=== PATIENT | female | born 1945 | race Caucasian/White ===

== ENCOUNTER → 2017-05-21 | Outpatient (CLI) | payer MEDICARE, BC ==
--- NOTE | 2017-05-21 12:33 | XR ---
EXAMINATION TYPE: XR Hip Bilateral Complete DATE OF EXAM: 05/21/2017 COMPARISON: NONE HISTORY: Hip pain TECHNIQUE: 2 views submitted FINDINGS: There is no evidence of erosive change or acute fracture. Postsurgical changes are noted. Vascular calcifications are seen. Moderate concentric narrowing the j oint space. Hypertrophic change of the greater trochanter noted. IMPRESSION: 1. Arthropathy correlate for femoral acetabular impingement.
== END ==
LOC: RADXRMAIN 12:11
PROVIDERS: ATTEND Family Medicine
DX: M16.0 Bilateral primary osteoarthritis of hip (principal)
CPT/HCPCS: 73521

== ENCOUNTER → 2017-05-28 | Outpatient (CLI) | payer MEDICARE, BC ==
--- NOTE | 2017-05-28 12:45 | US ---
EXAMINATION TYPE: US venous doppler duplex LE DATE OF EXAM: 05/28/2017 12:40 PM COMPARISON: NONE CLINICAL HISTORY: I82.40 DVT. Pt states right leg pain and swelling, bilateral legs ordered SIDE PERFORMED: Bilateral TECHNIQUE: The lower extremity deep venous system is examined utilizing real time linear array sonog abad with graded compression, doppler sonography and color-flow sonography. VESSELS IMAGED: External Iliac Vein (EIV) Common Femoral Vein Deep Femoral Vein Greater Saphenous Vein * Femoral Vein Popliteal Vein Small Saphenous Vein * Proximal Calf Veins (* superficial vessels) Right Leg: Negative for DVT Left Leg: Negative for DVT Grayscale, color doppler, spectral doppler imaging performed of the deep veins of the lower extremiti es. There is normal flow, compressibility, vascular waveforms. IMPRESSION: No sonographic evidence of deep venous thrombosis within either lower extremity.
== END | disposition home or self-care (01) ==
LOC: RADUSWWP 12:06
PROVIDERS: ATTEND Family Medicine
DX: I82.409 Acute embolism and thrombosis of unspecified deep veins of unspecified lower extremity (principal)
CPT/HCPCS: 93970

== ENCOUNTER → 2017-06-05 | Outpatient (CLI) | payer MEDICARE, BC ==
--- NOTE | 2017-06-05 12:19 | XR ---
EXAMINATION TYPE: XR chest 2V DATE OF EXAM: 06/05/2017 COMPARISON: Chest CT 10/30/2013 HISTORY: MRI clearance TECHNIQUE: Frontal and lateral views of the chest are obtained. FINDINGS: There is no focal air space opacity, pleural effusion, or pneumothorax seen. The cardiac silhouette size is within normal limits. Patient is post median sternotomy. Epicardial leads are not evident. Prominent lung volume may be indicative of COPD. Surgical clips present in the upper abdomen . The osseous structures are intact. IMPRESSION: No acute cardiopulmonary process.
== END | disposition home or self-care (01) ==
LOC: RADXRMAIN 11:54
PROVIDERS: ATTEND Physical Medicine & Rehabilitation
DX: Z01.818 Encounter for other preprocedural examination (principal)
CPT/HCPCS: 71020

== ENCOUNTER → 2018-06-05 | Outpatient (CLI) | payer MEDICARE, BC ==
--- NOTE | 2018-06-05 15:57 | MR ---
EXAMINATION TYPE: MR knee LT wo con DATE OF EXAM: 06/05/2018 COMPARISON: NONE HISTORY: Left knee pain, internal derangement. TECHNIQUE: Multiplanar, multisequence images of the knee is performed without IV contrast. FINDINGS: MEDIAL MENISCUS: Anterior horn is intact without tear. There is oblique increased signal posterior ho rn appears to extend to inferior articular surface sagittal image 24. LATERAL MENISCUS: Anterior and posterior horns are intact without tear. CRUCIATE LIGAMENTS: The anterior and posterior cruciate ligaments are intact and unremarkable. COLLATERAL LIGAMENTS: The medial collateral ligament and lateral collateral ligament complex are inta ct and unremarkable. EXTENSOR MECHANISM: Visualized quadriceps and patellar tendons are intact. EFFUSION: No significant suprapatellar joint effusion. POPLITEAL CYST: No popliteal/ramos cyst. TRICOMPARTMENT SPACES: Mild to moderate tricompartment joint space loss is seen. No significant spurr ing is present. CARTILAGE: There is moderate diffuse cartilaginous loss medial tibiofemoral compartment. BONE MARROW SIGNAL: No focal abnormal marrow signal is appreciated. OTHER: No additional significant abnormality is appreciated. IMPRESSION: 1. Cannot exclude or suspect focal oblique full-thickness tear posterior horn of medial meniscus. 2. Background mild to moderate tricompartment degenerative changes most prominent medial tibiofemoral compartment presumed product of osteoarthritis.
== END | disposition home or self-care (01) ==
LOC: RADMRIMAIN 14:38
PROVIDERS: ATTEND Family Medicine
DX: M17.12 Unilateral primary osteoarthritis, left knee (principal)

== ENCOUNTER 2018-07-30 08:15 | Day surgery (SDC) | payer MEDICARE, BC ==
[2018-07-24 09:29] VITALS: BMI 28.8
--- NOTE | 2018-07-29 17:04 | HP ---
HISTORY AND PHYSICAL DATE OF SURGERY: 07/30/2018 Alyssa Roca is a 73-year-old patient seen with progressive left knee pain. Treatment options were discussed. She elected to proceed with arthroscopy. Consent was obtained. Medical and cardiac clearances were obtained. PAST MEDICAL HISTORY: 1. Hypertension. 2. Depression. 3. Cardiovascular disease. PAST SURGICAL HISTORY: 1. Carpal tunnel release. 2. Cholecystectomy. 3. Hysterectomy. 4. Coronary artery bypass surgery. DAILY MEDICATIONS: 1. Aspirin. 2. Isosorbide. 3. Lopressor. 4. Nitroglycerin. ALLERGIES: AUGMENTIN and BACTRIM. SOCIAL HISTORY: Patient denies tobacco use. PHYSICAL EVALUATION OF THE LEFT KNEE: Range of motion is negative 2 to 110 degrees. There is a mild effusion present. Tenderness along the medial joint line. Positive medial Willie's. Ligaments are stable. Hip rotation is without pain. Distal neurovascular exam is intact. RADIOGRAPHS: Radiographs of the left knee revealed mild osteoarthritis. MRI of the left knee revealed medial meniscal tear. IMPRESSION: 1. Internal derangement of the left knee with medial meniscal tear. 2. Hypertension. 3. Coronary artery disease. PLAN: Left knee arthroscopy with partial meniscectomy and debridement. MMODL / IJN: [id number] /
[~2018-07-30 08:15] MED LIST: LACTATED RINGERS 1,000 ML IV SCH; MORPHINE SULFATE 2 MG/ML SYRINGE IV PRN; ceFAZolin IN SWFI 2 GM/20 ML SYRINGE IVP ONE
[2018-07-30] MEDS ORDERED: LACTATED RINGERS 1,000 ML IV ONE ×2 (08:43→11:31)
[2018-07-30] MEDS ORDERED: ONDANSETRON 4 MG/2 ML VIAL IVP ONE (08:58)
[2018-07-30] MEDS ORDERED: LIDOCAINE 1% 20 ML VIAL (10MG/ML) FOR IV START INTRADERMA ONE (08:58)
[2018-07-30] MEDS ORDERED: DEXAMETHASONE SOD PHOS (MDV) 100 MG/10 ML VIAL IVP ONE (08:59)
[2018-07-30] MEDS ORDERED: BUPIVACAIN-EPI 0.25%-1:200,000 30 ML VIAL INTRAARTIC ONE (10:17)
[2018-07-30] MEDS ORDERED: fentaNYL (PF) 50 MCG/ML 50 ML VIAL ONE (10:17)
[2018-07-30] MEDS ORDERED: PROPOFOL 10 MG/ML 20 ML VIAL IV ONE (10:17)
[2018-07-30] MEDS ORDERED: LIDOCAINE 1% INJ 10MG/ML (20 ML MDV) ONE (10:17)
--- NOTE | 2018-07-30 11:08 | P.OP ---
Date of Procedure: 07/30/18 Preoperative Diagnosis: Internal derangement left knee Postoperative Diagnosis: 1. Tear lateral meniscus left knee 2. Grade 2 chondromalacia medial femoral condyle left knee 3. Reactive synovitis medial, lateral and suprapatellar compartments left knee Procedure(s) Performed: 1. Arthroscopic partial lateral meniscectomy left knee 2. Arthroscopic chondroplasty medial femoral condyle left knee 3. Arthroscopic partial synovectomy medial, lateral and suprapatellar compartments left knee Anesthesia: GISELEA, local Surgeon: Deni Britt Estimated Blood Loss (ml): 6 Pathology: none sent Condition: stable Disposition: PACU Indications for Procedure: 73-year-old patient seen with progressive left knee pain. After having treatment options discussed, she elected to proceed with arthroscopy. Operative Findings: see description of procedure Description of Procedure: Patient was taken to the operative suite. Patient underwent a general anesthetic by the department of anesthesia. Patient was given preoperative antibiotics. The left lower extremity was placed in a well-padded arthroscopic leg hidalgo. The left leg was prepped and draped in the normal sterile orthopedic fashion. A lateral parapatellar and suprapatellar incision was made. Trochars were inserted. Arthroscopy was initiated. Suprapatellar pouch revealed diffuse thick reactive synovitis. The patellofemoral joint appeared to articulate congruently. There was grade 1/2 chondromalacia patella with no osteochondral tears present. The scope was guided into the medial gutter. No loose bodies or plica were identified. The scope was then guided into the medial compartment. A medial parapatellar incision was made. Trocar inserted followed by probe. There was grade 2 chondromalacia medial femoral condyle with some osteochondral tears present. There was fairly thick reactive synovitis anteriorly. The meniscus appeared intact with no evidence tear. I performed a chondroplasty medial femoral condyle. I performed a partial synovectomy compressing the reactive synovitis. The residual osteochondral surface was stable. There was good decompression of synovitis. Scope and probe were then guided into the intercondylar notch. Cruciates were identified , probed and found to be stable. The scope and probe were then guided into lateral compartment. There were radial tears midbody lateral meniscus. There was thick reactive synovitis anteriorly. There was no significant chondromalacia present. I performed a partial lateral meniscectomy down to stable tissue. I performed a partial synovectomy decompressing reactive synovitis. The residual meniscus was stable. There was good decompression of the synovitis. The scope was in guided back into the suprapatellar compartment. I introduced a motorized shaver into the suprapatellar compartment. I debrided some piecemeal fragments of meniscus I encountered. I performed a partial synovectomy. The shaver was removed. There was good decompression of synovitis. I took one more look on the entire knee, no residual debris. Instruments were now removed from the joint. The joint was infiltrated with .25% Marcaine. Steri-Strips were applied to the portal sites. Sterile dressings were applied. The patient was placed into a KWAME hose. No tourniquet was utilized. The patient was awakened, transferred to a bed and taken to recovery stable satisfactory condition.
[2018-07-30 11:09] VITALS: TEMP 97.6
[2018-07-30] MEDS: HYDROmorphone 0.5 MG/0.5 ML SYRINGE IVP PRN ×2 (11:19→11:25)
[2018-07-30 11:32] VITALS: RESP 16
[2018-07-30 12:18] VITALS: BP 125/73; PULSE 85
== END 2018-07-30 13:35 | disposition home or self-care (01) ==
LOC: OR 08:15
PROVIDERS: ATTEND Orthopaedic Surgery
DX: M23.362 Other meniscus derangements, other lateral meniscus, left knee (principal); I10 Essential (primary) hypertension; F32.9 Major depressive disorder, single episode, unspecified; I25.10 Atherosclerotic heart disease of native coronary artery without angina pectoris; M65.862 Other synovitis and tenosynovitis, left lower leg; E66.9 Obesity, unspecified; M22.42 Chondromalacia patellae, left knee; Z95.1 Presence of aortocoronary bypass graft; Z88.0 Allergy status to penicillin; Z79.82 Long term (current) use of aspirin; Z79.899 Other long term (current) drug therapy; Z88.2 Allergy status to sulfonamides; Z72.0 Tobacco use; Z88.8 Allergy status to other drugs, medicaments and biological substances; Z68.28 Body mass index [BMI] 28.0-28.9, adult
CPT/HCPCS: 29881; J3010; J2405; J2001; J1100; J2704; J1170; J0690

== ENCOUNTER → 2018-09-24 | Outpatient (CLI) | payer MEDICARE, BC ==
--- NOTE | 2018-09-25 07:52 | US ---
EXAMINATION TYPE: US carotid duplex BILAT DATE OF EXAM: 09/24/2018 COMPARISON: NONE CLINICAL HISTORY: I50.9 congestive heart failure R60.0 Edema. EXAM MEASUREMENTS: RIGHT: Peak Systolic Velocity (PSV) cm/sec ----- Right CCA: 91.7 ----- Right ICA: 91.5 ----- Right ECA: 136.3 ICA/CCA ratio: 1.0 RIGHT: End Diastole cm/sec ----- Right CCA: 18.4 ----- Right ICA: 26.2 ----- Right ECA: 9.1 LEFT: Peak Systolic Velocity (PSV) cm/sec ----- Left CCA: 108.7 ----- Left ICA: 118.3 ----- Left ECA: 133.1 ICA/CCA ratio: 1.1 LEFT: End Diastole cm/sec ----- Left CCA: 24.5 ----- Left ICA: 38.0 ----- Left ECA: 0.0 VERTEBRALS (direction of flow): Right Vertebral: Antegrade Left Vertebral: Antegrade Rhythm: Normal Mild plaque, no significant velocity elevations. Grayscale, color Doppler, spectral Doppler imaging performed of the carotid arteries. Waveform analys is does not show any significant stenosis of the proximal internal carotid arteries by Doppler criter ia. IMPRESSION: No hemodynamic significant stenosis of the proximal internal carotid arteries bilaterall y by Doppler criteria, an indirect measurement of carotid stenosis
--- NOTE | 2018-09-26 09:09 | ECHOF ---
Referral Reason:I50.9 congestive heart failure R60.0 Edema MEASUREMENTS -------- HEIGHT: 160.0 cm WEIGHT: 72.1 kg BP: IVSd: 0.9 cm (0.6 - 1.1) LVIDd: 4.2 cm (3.9 - 5.3) LVPWd: 1.2 cm (0.6 - 1.1) IVSs: 1.0 cm LVIDs: 2.3 cm LVPWs: 1.6 cm LAESV Index (A-L): 26.30 ml/m Ao Diam: 3.0 cm (2.0 - 3.7) LA Diam: 2.8 cm (2.7 - 3.8) AV Cusp: 1.6 cm (1.5 - 2.6) EPSS: 0.3 cm MV E Gregg: 0.64 m/s MV DecT: 216 ms MV A Gregg: 0.92 m/s MV E/A Ratio: 0.70 AR PHT: 721 ms RAP: 5.00 mmHg RVSP: 8.21 mmHg MV EF SLOPE: 54.71 mm/s (70 - 150) MV EXCURSION: 17.35 mm (> 18.000) FINDINGS -------- Sinus rhythm. This was a technically adequate study. The left ventricular size is normal. There is borderline concentric left ventricular hypertrophy. Overall left ventricular systolic function is normal with, an EF between 55 - 60 %. The right ventricle is normal in size and function. Normal LA size by volume 22+/-6 ml/m2. The right atrium is normal in size. Aortic valve is trileaflet and is mildly thickened. Trace amount of aortic regurgitation. The mitral valve leaflets are mildly thickened. Mild mitral annular calcification present. Mild m itral regurgitation is present. Trace tricuspid regurgitation present. The right ventricular systolic pressure, as measured by Dopp ler, is 8.21mmHg. The pulmonic valve was not well visualized. The aortic root size is normal. IVC Not well visulized. The pericardium is normal. CONCLUSIONS -------- 1. Sinus rhythm. 2. This was a technically adequate study. 3. The left ventricular size is normal. 4. There is borderline concentric left ventricular hypertrophy. 5. Overall left ventricular systolic function is normal with, an EF between 55 - 60 %. 6. The right ventricle is normal in size and function. 7. Normal LA size by volume 22+/-6 ml/m2. 8. The right atrium is normal in size. 9. Aortic valve is trileaflet and is mildly thickened. 10. Trace amount of aortic regurgitation. 11. The mitral valve leaflets are mildly thickened. 12. Mild mitral annular calcification present. 13. Mild mitral regurgitation is present. 14. Trace tricuspid regurgitation present. 15. The right ventricular systolic pressure, as measured by Doppler, is 8.21mmHg. 16. The pulmonic valve was not well visualized. 17. The aortic root size is normal. 18. IVC Not well visulized. 19. The pericardium is normal. DIRECTOR OF TRAUMA: Soha Burger RDCS
== END | disposition home or self-care (01) ==
LOC: RADECHMAIN 14:37
PROVIDERS: ATTEND Family Medicine
DX: I08.0 Rheumatic disorders of both mitral and aortic valves (principal); I50.9 Heart failure, unspecified
CPT/HCPCS: 93306; 93880

== ENCOUNTER → 2018-09-24 | Outpatient (CLI) | payer MEDICARE, BC ==
--- NOTE | 2018-09-25 08:10 | US ---
EXAMINATION TYPE: US venous doppler duplex LE DATE OF EXAM: 09/24/2018 4:04 PM COMPARISON: Previous exam 05/28/2017 CLINICAL HISTORY: M79.662 M79.661. SIDE PERFORMED: Bilateral TECHNIQUE: The lower extremity deep venous system is examined utilizing real time linear array sonog abad with graded compression, doppler sonography and color-flow sonography. VESSELS IMAGED: External Iliac Vein (EIV) Common Femoral Vein Deep Femoral Vein Greater Saphenous Vein * Femoral Vein Popliteal Vein Small Saphenous Vein * Proximal Calf Veins (* superficial vessels) There is normal flow, compressibility, vascular waveforms. Right Leg: Negative for DVT Left Leg: Negative for DVT IMPRESSION: No evident deep venous thrombosis at or above the knees.
== END | disposition home or self-care (01) ==
LOC: RADUSMAIN 14:48
PROVIDERS: ATTEND Neurological Surgery
DX: I82.403 Acute embolism and thrombosis of unspecified deep veins of lower extremity, bilateral (principal)
CPT/HCPCS: 93970

== ENCOUNTER → 2018-09-28 | Outpatient (CLI) | payer MEDICARE, BC ==
--- NOTE | 2018-10-02 11:20 | MR ---
EXAMINATION TYPE: MR lumbar spine wo con DATE OF EXAM: 09/28/2018 COMPARISON: Outside MRI lumbar spine April 27, 2018 and outside lumbar spine x-ray September 16 9 HISTORY: Spinal stenosis, lumbar region TECHNIQUE: Multiplanar, multisequence imaging of the lumbar spine is performed without IV contrast. FINDINGS: Sagittal images of the lumbar spine show persistent severe grade 1 anterolisthesis of L4 on L5 measured 9 to 10 mm on sagittal images. There is persistent mild height loss along the anterior s uperior L5 endplate at site of artificial disc material. There is persistent multilevel disc desiccat ion above and below surgical levels with fairly well maintained disc space heights. The conus medull barbara is normal in position and signal ending mid L1 level. Postsurgical change posteriorly L4-L5 leve l is redemonstrated. Axial images at T12-L1 level show mild facet degenerative changes bilaterally but spinal canal is pr eserved and bilateral neural foramina are patent. Axial images at L1-L2 level show mild facet degenerative changes bilaterally with left paracentral di sc protrusion effacing anterolateral thecal sac on axial image 23, bilateral neural foramina are ibanez nt. No significant change from prior. Axial images at L2-L3 level show persistent mild facet degenerative changes bilaterally. Spinal canal is preserved. Bilateral neural foramina are patent. No significant change from prior. Axial images at L3-L4 level show mild to moderate broad disc bulge mildly effacing anterior thecal sa c, there is artifact from right-sided fusion hardware. There are mild facet degenerative changes bila terally. There is right-sided laminectomy defect with scar tissue. There is mild to moderate bilatera l anterior inferior neural foraminal narrowing redemonstrated. Axial images at the L4-L5 level show artifact from disc material in right lateral fusion hardware. Th ere are suspected bilateral laminectomy defects with scar tissue surrounding spinal canal. Exiting le ft L4 nerve is not clearly seen on sagittal images, there is moderate right-sided inferior neural for aminal narrowing felt present on sagittal images. There is effacement of anterior thecal sac at super ior L5 level due to spondylolisthesis axial image 6 similar to prior. Axial images at L5-S1 level show moderate facet degenerative changes bilaterally. Spinal canal is pre served. Bilateral neural foramina show mild narrowing. There are few round T2 hyperintense lesions scattered throughout both kidneys consistent with simple subcentimeter cysts. IMPRESSION: Postsurgical change L4-L5 level with stable spondylolisthesis. Persistent scar tissue at this level, scar tissue was more prominent at left L4-L5 foramina on prior study, nonvisualization of exiting left L4 nerve on current study is noted. Degenerative changes L3-L4 level redemonstrated, fe lt over exaggerated on prior outside report.
== END | disposition home or self-care (01) ==
LOC: RADMRIMAIN 11:57
PROVIDERS: ATTEND Neurological Surgery
DX: M47.816 Spondylosis without myelopathy or radiculopathy, lumbar region (principal); M43.16 Spondylolisthesis, lumbar region
CPT/HCPCS: 72148

== ENCOUNTER → 2019-04-01 | Outpatient (CLI) | payer MEDICARE, BC ==
--- NOTE | 2019-04-01 12:55 | CT ---
EXAMINATION TYPE: CT lumbar spine wo con DATE OF EXAM: 04/01/2019 12:35 PM COMPARISON: MRI lumbar spine 09/28/2018, outside CT scan of 09/16/2018 HISTORY: Low back pain x [address] DLP: 957 mGycm Automated exposure control for dose reduction was used. Unenhanced CT of the lumbar spine was performed. Bone and soft tissue window settings are submitted as well as coronal and sagittal reconstructions. L1-L2: There is calcification along the posterior margin of the disc. Left paracentral disc bulge not ed. This may result in very mild mass effect upon the thecal sac paracentrally to left. Neural forami na appear to be patent. There is facet arthropathy. L2-L3: Facet arthropathy and circumferential disc bulging with mild flattening of the thecal sac. Samia ral foramina are patent with mild encroachment L3-L4: Artifact does limits assessment spinal canal. Circumferential disc bulging with mild flattenin g of thecal sac suspected. Facet arthropathy noted with bilateral mild to moderate foraminal encroach ment. L4-L5: Postsurgical changes with stable anterolisthesis measuring approximately 9 to 10 mm on sagitta l images. Deformity of the endplate of L5 noted. Artifact limits assessment spinal canal which is non diagnostic at this level. L5-S1: Mild central disc bulging but no canal stenosis. Advanced facet arthropathy noted with mild bi lateral foraminal encroachment. Postcholecystectomy changes are seen. Bilateral nonobstructing renal calculi are suspected. Atheroscl erotic change aorta. Assessment the paraspinal musculature limited the surgical levels due to artifac t. Suggestion of abnormal soft tissue at the L4-5 level which may be related to postsurgical scar or granulation tissue. This would be more adequately evaluated with MRI. Plaque is noted within the aort a somewhat centrally at the L4-L5 level. This could represent eccentric calcified plaque is no contra st was administered. Retrospectively stable from 09/16/2018. Report called to referring clinician. IMPRESSION: 1. Limited assessment spinal canal particularly at the surgical levels due to artifact in resolution. 2. Stable anterolisthesis measuring 9 to 10 mm on sagittal images at the L4-L5 level with foraminal e ncroachment suspected. 3. Stable left paracentral disc bulging L1-L2. 4. stable multilevel degenerative disc disease and facet arthropathy with multilevel foraminal encroa chment. 5. Stable disc bulging L3-L4 with thecal sac flattening. 5. Eccentric intraluminal plaque within the aorta could represent area of calcified eccentric plaque. Localized chronic dissection not excluded. Stable from the outside CT scan of 09/16/2018.
== END | disposition home or self-care (01) ==
LOC: RADCTMAIN 12:11
PROVIDERS: ATTEND Neurological Surgery
DX: M43.16 Spondylolisthesis, lumbar region (principal); M51.36 Other intervertebral disc degeneration, lumbar region; M51.86 Other intervertebral disc disorders, lumbar region
CPT/HCPCS: 72131

== ENCOUNTER → 2019-04-13 | Outpatient (CLI) | payer MEDICARE, BC ==
--- NOTE | 2019-04-14 08:36 | MR ---
EXAMINATION TYPE: MR lumbar spine wo con DATE OF EXAM: 04/13/2019 COMPARISON: Prior MRI lumbar spine 09/28/[address] 04/01/2019 HISTORY: PAIN, STENOSIS TECHNIQUE: Multiplanar, multisequence images of the lumbar spine were acquired. T12-L1 is stable, there is facet arthropathy, mild disc bulge causing minimal anterior mass effect on the thecal sac. No significant spinal stenosis. L1-L2: Minimal posterior disc bulge causes slight anterior mass effect on the thecal sac. There is fa cet arthropathy change. No significant foraminal encroachment or spinal stenosis. L2-L3: Mild disc bulge causes only slight anterior mass effect on the thecal sac. There is facet arth ropathy with hypertrophic changes of the facets causing some posterior lateral mass effect on the the kristen sac. No significant spinal stenosis. L3-L4: Broad-based posterior disc bulge causes mild anterior mass effect on the thecal sac. Circumfer ential extension of disc material encroaches somewhat on the foramina bilaterally similar to prior ex am. Some facet arthropathy changes are again seen. This hypertrophy ligamentum flavum causing some po sterior lateral mass effect on the thecal sac. No significant spinal stenosis. L4-L5: No foraminal encroachment is greater on the left in contributed by the listhesis. No evident d isc herniation. Some mild spinal stenosis is stable on axial image #7. Laminectomy defects are again seen. L5-S1: Stable. There is some facet arthropathy change. No spinal stenosis or evident disc herniation, mild foraminal encroachment is stable. Screw transgresses the anterior cortex of L5 and is in close proximity to the right common iliac vein. Patient is status post right posterior fusion L4-5, susceptibility artifact due to patient's hardware is noted. Anterolisthesis at L4-5 is stable, intervertebral spacing cage is present at the disc spac e. Disc spaces show a stable appearance, there is multilevel spondylosis with minimal endplate discog enic marrow signal change. No paraspinal masses are identified. Conus medullaris has a normal appear ance. Abdominal aortic ectasia is noted axial image 27, 3 cm diameter. Probable cortical cysts associ ated with the right and left kidney again noted. IMPRESSION: Postop changes, multilevel foraminal encroachment, spondylolisthesis, degenerative disc disease and f acet arthropathy are similar to prior exam. Abdominal aortic ectasia. Additional findings above.
== END | disposition home or self-care (01) ==
LOC: RADMRIMAIN 15:28
PROVIDERS: ATTEND Neurological Surgery
DX: M99.73 Connective tissue and disc stenosis of intervertebral foramina of lumbar region (principal); M43.16 Spondylolisthesis, lumbar region; M46.94 Unspecified inflammatory spondylopathy, thoracic region; M46.96 Unspecified inflammatory spondylopathy, lumbar region; M48.8X7 Other specified spondylopathies, lumbosacral region; M47.26 Other spondylosis with radiculopathy, lumbar region; Z98.890 Other specified postprocedural states
CPT/HCPCS: 72148

== ENCOUNTER → 2019-08-27 | Outpatient (CLI) | payer MEDICARE, BC ==
--- NOTE | 2019-08-27 13:13 | XR ---
EXAM TYPE: LUMBAR SPINE X RAY SERIES COMPARISON: 04/13/2019 HISTORY: Pain TECHNIQUE: 4 views are submitted. FINDINGS: Postsurgical changes involving lower lumbar spine are noted. Surgical thania and additional surgical clips are noted. There is a chronic appearing deformity of L5 with grade 2 anterolisthesis L4 on L5. Diffuse osteopenia and multilevel mild to moderate degenerative disc disease. Vascular calcification s of the aorta. Changes of sacroiliitis noted bilaterally. IMPRESSION: 1. Postsurgical change with chronic appearing deformity of L5 and grade 2 anterolisthesis L4 on L5.
--- NOTE | 2019-08-28 07:44 | CT ---
EXAMINATION TYPE: CT lumbar spine wo con DATE OF EXAM: 08/27/2019 COMPARISON: 04/01/2019 HISTORY: Spinal stenosis CT DLP: 1131 mGycm CONTRAST: None TECHNIQUE: CT of the lumbar spine is performed on a spiral scan at 3 mm thick sections. Reconstructed images are performed in the coronal and sagittal planes. FINDINGS: T11-T12: No focal disc herniation or significant disc bulge is evident. No spinal canal stenosis or n eural foraminal stenosis present. Some facet hypertrophy is noted. T12-L1: No focal disc herniation or significant disc bulge is evident. No spinal canal stenosis or neural foraminal stenosis is present. L1-L2: Mild disc bulge is present with anterior thecal sac contact. Some calcified ligament is smash piecer ior to the left paracentral disc. No significant thecal sac compression or spinal canal stenosis is p resent. Neural foramen are patent. L2-L3: Mild broad-based disc bulge is present in the intrathecal sac contact. No spinal canal stenosi s or neural foraminal stenosis is present. L3-L4: There appears to be some mild disc bulge L3-4 with minimal anterior thecal sac contact. No lizette nosis present. There is some beam hardening artifact developing near this level from a right pedicle screw. Some facet hypertrophy is present. There is moderate bilateral foraminal narrowing. L4-L5: There is a grade 2 spondylolisthesis of L4 and L5. There is loss of disc height present. Disc spacers present along the anterior L5 level to the left. Significant separation of vertebral bodies i s not evident. No residual disc is identified. There's been prior laminectomy at this level. However, separation of the spinal canal from soft tissues is unclear on these images. The appearance however is stable from 04/01/2019. L5-S1: Minimal disc bulge may be present. No displacement of the exiting nerve roots is evident. Face t hypertrophy is present. No spinal canal stenosis is present. Some right foraminal narrowing may be present. Left foramen is patent. There is resection of the L4 and L5 spinous processes. Postsurgical changes present. Pedicle screws a re present in L4 and L5. Orientation of the grade 2 spondylolisthesis is unchanged over the interval. The degenerative endplate changes also appear stable. IMPRESSION: 1. Stable grade 2 spondylolisthesis of L4 anterior to L5 with advanced endplate changes. 2. Poor definition of the spinal canal through the L4-5 level. The appearance however is stable from 04/01/2019. 3. Additional mild disc bulging without stenosis discussed above, stable.
== END ==
LOC: RADCTMAIN 12:42
PROVIDERS: ATTEND Neurological Surgery
DX: M51.26 Other intervertebral disc displacement, lumbar region (principal); M43.16 Spondylolisthesis, lumbar region; Z98.890 Other specified postprocedural states
CPT/HCPCS: 72110; 72131

== ENCOUNTER → 2020-08-03 | Outpatient (CLI) | payer MEDICARE, BC ==
--- NOTE | 2020-08-03 16:19 | BD ---
EXAMINATION TYPE: Axial Bone Density DATE OF EXAM: 08/03/2020 COMPARISON: NONE CLINICAL HISTORY: Height: 5 FT 3 IN Weight: 189 FRAX RISK QUESTIONS: Alcohol (3 or more units per day): NO Family History (Parent hip fracture): NO Glucocorticoids (More than 3mos): NO (Ex: prednisone, prednisolone, methylprednisolone, dexamethasone, and hydrocortisone). History of Fracture in Adulthood: NO Secondary Osteoporosis: 1. Type 1 Diabetes: NO 2. Hyperthyroidism: NO 3. Menopause before 45: NO 4. Malnutrition: NO 5. Chronic liver disease: NO Rheumatoid Arthritis: YES Current Tobacco Use: NO RISK FACTORS HISTORY OF: Surgery to Spine/Hip(right/left)/Wrist (right/left): SPINE FUSION 2017 Family History of Osteoporosis: NO Active: SOMEWHAT Diet low in dairy products/other sources of calcium: NO Postmenopausal woman: TOTAL HYST 1995 Take estrogen and/or progesterone medications: TOOK HRT SEV YEARS AFTER HYST NONE NOW Lost more than 2 inches in height since high school: YES MEDICATIONS: Additional Medications: LOPRESSOR, IMDUR, ASPIRIN, SINGULAR, POTASSIUM, LYRICA, METHOTREXATE, FOLIC A LORETO, NITRO, NYSTATIN, LIZZ, NORCO, BUMEX Additional History: EXAM MEASUREMENTS: Bone mineral density about the R hip (g/cm2): 0.693 Bone mineral density about the L hip (g/cm2): 0.674 T Score values are as follows: -----R Neck: -2.5 -----L Neck: -2.6 -----R Total: -2.0 -----L Total: -2.1 Bone mineral density has: DECREASED -21.5 % since study of: 2014 Bone mineral density about the L Wrist (g/cm2): 0.585 T Score values are as follows: -----Dist. R+U: -0.6 -----Prox. R+U: -1.7 -----Radius total: -1.5 BASELINE FOR WRIST IMPRESSION: Osteoporosis (T Score less than -2.5). There is increased fracture risk and therapy is usually indicated based on age. Re-Screen 1-2 years. NOTE: T-SCORE=SD OF THE YOUNG ADULT MEAN.
--- NOTE | 2020-08-10 13:01 | P.ARTDOP ---
Arterial Doppler LOWER EXTREMITY ARTERIAL DOPPLER: DATE OF SERVICE: 08/03/2020 Reason for study: Bilateral leg pain. Doppler waveforms: Atypical bilaterally throughout. Pulse volume recording: []. Pressure gradients: Difficult to measure.. Ankle-brachial indices: 0.84 on the right and cannot occlude the left. Toe brachial indices: 0.29 on the right, 0.40 on the left Impression: Suspect bilateral calcific wall disease. Suspect moderate bilateral iliofemoral disease. Clinical correlation recommended.
== END | disposition home or self-care (01) ==
LOC: RADUSWWP 09:23
PROVIDERS: ATTEND Family Medicine
DX: M06.9 Rheumatoid arthritis, unspecified (principal); M81.0 Age-related osteoporosis without current pathological fracture
CPT/HCPCS: 77080; 93923

== ENCOUNTER 2020-08-29 15:24 | Emergency (ER) | payer MEDICARE, BC ==
[2020-08-29 15:35] VITALS: RESP 18; TEMP 98
[2020-08-29] MEDS ORDERED: HYDROmorphone 1 MG/ML 1 ML SYRINGE IM STA (15:56)
--- NOTE | 2020-08-29 16:00 | ED ---
General Adult HPI - General Chief complaint: Back Pain/Injury Stated complaint: Fall,Back pain Time Seen by Provider: 08/29/20 15:45 Source: patient, family, RN notes reviewed Mode of arrival: wheelchair Limitations: no limitations - History of Present Illness Initial comments: Patient is a pleasant 75-year-old female presenting to the emergency Department with low back and sacral pain. Patient states she had a fall around 1 week ago. Patient states she is still having some symptoms and is not Much better. Patient does have a history of spinal stenosis and previous lumbar surgery. Patient states discomfort does increase with movement and position changes. No leg weakness. No loss of control of bowel or bladder. No loss of sensation. Patient is ambulatory. - Related Data Home Medications Medication Instructions Recorded Confirmed Isosorbide Mononitrate ER [Imdur] 30 mg PO DAILY 04/06/15 01/21/19 Metoprolol Tartrate [Lopressor] 50 mg PO BID 04/06/15 01/21/19 Nitroglycerin Sl Tabs [Nitrostat] 0.4 mg SUBLINGUAL Q5M PRN 04/06/15 01/21/19 Montelukast [Singulair] 10 mg PO HS 06/14/16 01/21/19 Multivitamins, Thera [Multivitamin 1 tab PO DAILY 06/14/16 01/21/19 (formulary)] Nystatin Powder 1 applicate TOPICAL DAILY PRN 07/24/18 01/21/19 Potassium Chloride [Klor-Con 20] 20 meq PO DAILY PRN 07/24/18 01/21/19 Stool Softner 1 tab PO DAILY 07/24/18 01/21/19 Aspirin [Children's Aspirin] 81 mg PO HS 01/21/19 01/21/19 Bumetanide [BUMEX] 2 mg PO DAILY 01/21/19 01/21/19 Folic Acid 1 mg PO DAILY 01/21/19 01/21/19 Pregabalin [Lyrica] 50 mg PO TID 01/21/19 01/21/19 metHOTREXate sodium [Methotrexate] 7.5 mg PO WEEKLY 01/21/19 01/21/19 Previous Rx's Medication Instructions Recorded HYDROcodone/APAP 7.5-325MG [[place] 1 each PO Q6HR PRN #28 tab 07/30/18 7.5] Allergies Allergy/AdvReac Type Severity Reaction Status Date / Time amlodipine [From Norvasc] Allergy Unknown Verified 08/29/20 15:34 diazepam [From Valium] Allergy hard time Verified 08/29/20 15:34 coming out of anesthesia amoxicillin trihydrate AdvReac Severe Nausea & Verified 08/29/20 15:34 [From Augmentin] Vomiting & Diarrhea potassium clavulanate AdvReac Severe Nausea & Verified 08/29/20 15:34 [From Augmentin] Vomiting & Diarrhea sulfamethoxazole AdvReac Severe affected Verified 08/29/20 15:34 [From Bactrim] muscles - couldn't move trimethoprim [From Bactrim] AdvReac Severe affected Verified 08/29/20 15:34 muscles - couldn't move Yqqavol-Dol-Ami Reductase AdvReac leg cramps Verified 08/29/20 15:34 Inhibitor xanax AdvReac Unknown Uncoded 08/29/20 15:34 Review of Systems ROS Statement: Those systems with pertinent positive or pertinent negative responses have been documented in the HPI. ROS Other: All systems not noted in ROS Statement are negative. Constitutional: Denies: fever Eyes: Denies: eye pain ENT: Denies: ear pain Respiratory: Denies: cough Cardiovascular: Denies: palpitations Endocrine: Denies: fatigue Gastrointestinal: Denies: abdominal pain Genitourinary: Denies: urgency Musculoskeletal: Reports: as per HPI, back pain Skin: Denies: rash Neurological: Denies: weakness Past Medical History Past Medical History: Coronary Artery Disease (CAD), Chest Pain / Angina, Hyperlipidemia, Hypertension, Osteoarthritis (OA) Additional Past Medical History / Comment(s): ARTHRITIS HEAD TO TOE- HANDS & LOWER BACK IS THE WORST-HANDS SWELL @ TIMES, urinary incontinence, "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 CATARACTS RONY. carpal tunnelWITH LENS IMPLANT 2007, lower back spinal fusion 2018, left knee surgery 2018. Past Anesthesia/Blood Transfusion Reactions: Postoperative Nausea & Vomiting (PONV) Additional Past Anesthesia/Blood Transfusion Reaction / Comment(s): PONV and hard to wake up Past Psychological History: Anxiety, Depression Past Alcohol Use History: None Reported Past Drug Use History: None Reported - Past Family History Brother(s) Additional Family Medical History / Comment(s): Shunt has 1 brother and 1 sister but she does not have any contact with them. Patient has 3 children that are all healthy. Mother Family Medical History: Cancer Additional Family Medical History / Comment(s): . Father Family Medical History: Cancer Additional Family Medical History / Comment(s): . General Exam Limitations: no limitations General appearance: alert, in no apparent distress Head exam: Present: normocephalic Eye exam: Present: normal appearance Neck exam: Present: normal inspection Respiratory exam: Present: normal lung sounds bilaterally Cardiovascular Exam: Present: regular rate, normal rhythm Expanded Peripheral pulses: 2+: Posterior Tibialis (R), Posterior Tibialis (L) GI/Abdominal exam: Present: soft. Absent: tenderness Extremities exam: Present: normal inspection, full ROM. Absent: tenderness Back exam: Present: tenderness (Minimal tenderness lower lumbar spine.), other (Moderate sacral tenderness) Neurological exam: Present: alert. Absent: motor sensory deficit Expanded Sensory exam: Lower Extremity Light Touch: Normal Motor strength exam: RLE: 5, LLE: 5 Psychiatric exam: Present: normal affect, normal mood Skin exam: Present: normal color Course Vital Signs 08/29/20 15:31 Temperature 98.0 F Pulse Rate 67 Respiratory 18 Rate Blood Pressure 195/76 O2 Sat by Pulse 97 Oximetry Medical Decision Making - Medical Decision Making Patient reevaluated and resting comfortably in bed. Patient and family updated on results and need for follow-up. - Radiology Data Radiology results: image reviewed (Sacral x-ray shows no acute Gemelli. Lumbar x-ray shows postsurgical changes and chronic changes.) Disposition Clinical Impression: Low back pain, Fall Disposition: HOME SELF-CARE Condition: Stable Instructions (If sedation given, give patient instructions): Acute Low Back Pain (ED) Additional Instructions: Please follow-up with her back doctor and primary care physician in the next couple days for recheck. Return for weakness, loss of control of bowel or bladder, uncontrolled pain, worsening or changing symptoms or other concerns. Is patient prescribed a controlled substance at d/c from ED?: No Referrals: Romario Russ DO [Primary Care Provider] - 1-2 days Time of Disposition: 17:03
--- NOTE | 2020-08-29 16:44 | XR ---
EXAMINATION TYPE: XR sacrum coccyx DATE OF EXAM: 08/29/2020 COMPARISON: NONE HISTORY: Pain TECHNIQUE: 3 views FINDINGS: There is posterior fusion surgery at L4-5. There is 1 cm anterior subluxation of L4 in rela tion L5. There is moderate narrowing of L4-5 disc space. Sacral segments have normal alignment. Sacro iliac joints are intact. There is no evidence of sacral fracture. IMPRESSION: No acute bony abnormality.
--- NOTE | 2020-08-29 16:46 | XR ---
EXAMINATION TYPE: XR lumbar spine 2 or 3V DATE OF EXAM: 08/29/2020 COMPARISON: 08/27/2019 HISTORY: Pain. Fall. TECHNIQUE: 3 views FINDINGS: There is posterior fusion surgery with rods and screws on the right side at L4-5. There is 1 cm anterior subluxation of L4 in relation L5. There is mild anterior wedging of L5. There is athero matous change in the abdominal aorta. There is 30% wedging of L5. Sacroiliac joints are intact. IMPRESSION: Old mild compression fracture of L5 appears stable. Subluxation deformity at L4-5 appears stable. No acute fracture seen.
[2020-08-29 17:12] VITALS: BP 150/63; PULSE 65
== END 2020-08-29 17:11 | disposition home or self-care (01) ==
LOC: EC 15:24
DX: M54.5 Low back pain (principal); M53.3 Sacrococcygeal disorders, not elsewhere classified; F41.9 Anxiety disorder, unspecified; F32.9 Major depressive disorder, single episode, unspecified; I25.119 Atherosclerotic heart disease of native coronary artery with unspecified angina pectoris; E78.5 Hyperlipidemia, unspecified; I10 Essential (primary) hypertension; M19.90 Unspecified osteoarthritis, unspecified site; M06.9 Rheumatoid arthritis, unspecified; Z79.82 Long term (current) use of aspirin; Z79.899 Other long term (current) drug therapy; Z88.1 Allergy status to other antibiotic agents; Z88.2 Allergy status to sulfonamides; Z88.0 Allergy status to penicillin; Z88.8 Allergy status to other drugs, medicaments and biological substances; Z95.1 Presence of aortocoronary bypass graft; Z95.5 Presence of coronary angioplasty implant and graft; Z90.49 Acquired absence of other specified parts of digestive tract; Z90.710 Acquired absence of both cervix and uterus; Z98.42 Cataract extraction status, left eye; Z98.41 Cataract extraction status, right eye; Z96.1 Presence of intraocular lens; W18.30XA Fall on same level, unspecified, initial encounter
CPT/HCPCS: 99283 ×2; 96372 ×2; 72100; 72220; J1170

== ENCOUNTER → 2020-09-05 | Outpatient (CLI) | payer MEDICARE, BC ==
--- NOTE | 2020-09-05 16:05 | XR ---
6. Spine HISTORY: Back pain 5 views of lumbosacral spine correlated to prior lumbar spine 08/29/2020 There is no interval change. Posterior fusion changes are stable and unilateral on the right with ant erolisthesis grade 1 L4-5, there is retrolisthesis grade 1 L5-S1. Intervertebral spacing material pre sent at L4-5, superior endplate of L5 shows depression anteriorly as on prior exam. Bone mineralizati on is reduced. There is no evident spondylolysis or spondylolisthesis. Surgical clips are present rig ht upper quadrant, dense vascular calcifications are noted incidentally in the aorta iliac distributi on. IMPRESSION: Similar findings to prior exam, no acute abnormality.
--- NOTE | 2020-09-05 16:08 | XR ---
Sacrum and coccyx HISTORY: Pain, trauma 2 weeks prior 3 views of the sacrum and coccyx correlated prior exam 08/29/2020 Low bone mineralization may limit evaluation. Postop changes are noted in the lumbar spine. Vascular calcifications are noted within the pelvis. Alignment is maintained. IMPRESSION: No acute fracture or dislocation is evident. Alternate imaging may be of benefit.
== END | disposition home or self-care (01) ==
LOC: RADXRMAIN 14:24
PROVIDERS: ATTEND Family Medicine
DX: M54.5 Low back pain (principal)
CPT/HCPCS: 72110; 72220

== ENCOUNTER 2021-05-24 00:02 | Inpatient (IN) | payer MEDICARE, BC ==
--- NOTE | 2021-05-24 00:09 | ED ---
Weakness HPI - General Stated complaint: fall Time Seen by Provider: 05/24/21 00:03 - Related Data Home Medications Medication Instructions Recorded Confirmed Isosorbide Mononitrate ER [Imdur] 30 mg PO DAILY 04/06/15 01/21/19 Metoprolol Tartrate [Lopressor] 50 mg PO BID 04/06/15 01/21/19 Nitroglycerin Sl Tabs [Nitrostat] 0.4 mg SUBLINGUAL Q5M PRN 04/06/15 01/21/19 Montelukast [Singulair] 10 mg PO HS 06/14/16 01/21/19 Multivitamins, Thera [Multivitamin 1 tab PO DAILY 06/14/16 01/21/19 (formulary)] Nystatin Powder 1 applicate TOPICAL DAILY PRN 07/24/18 01/21/19 Potassium Chloride [Klor-Con 20] 20 meq PO DAILY PRN 07/24/18 01/21/19 Stool Softner 1 tab PO DAILY 07/24/18 01/21/19 Aspirin [Children's Aspirin] 81 mg PO HS 01/21/19 01/21/19 Bumetanide [BUMEX] 2 mg PO DAILY 01/21/19 01/21/19 Folic Acid 1 mg PO DAILY 01/21/19 01/21/19 Pregabalin [Lyrica] 50 mg PO TID 01/21/19 01/21/19 metHOTREXate sodium [Methotrexate] 7.5 mg PO WEEKLY 01/21/19 01/21/19 Previous Rx's Medication Instructions Recorded HYDROcodone/APAP 7.5-325MG [[place] 1 each PO Q6HR PRN #28 tab 07/30/18 7.5] Allergies Allergy/AdvReac Type Severity Reaction Status Date / Time amlodipine [From Norvasc] Allergy Unknown Verified 05/24/21 00:20 diazepam [From Valium] Allergy hard time Verified 05/24/21 00:20 coming out of anesthesia amoxicillin trihydrate AdvReac Severe Nausea & Verified 05/24/21 00:20 [From Augmentin] Vomiting & Diarrhea potassium clavulanate AdvReac Severe Nausea & Verified 05/24/21 00:20 [From Augmentin] Vomiting & Diarrhea sulfamethoxazole AdvReac Severe affected Verified 05/24/21 00:20 [From Bactrim] muscles - couldn't move trimethoprim [From Bactrim] AdvReac Severe affected Verified 05/24/21 00:20 muscles - couldn't move Ohyyyca-Qlb-Tkw Reductase AdvReac leg cramps Verified 05/24/21 00:20 Inhibitor xanax AdvReac Unknown Uncoded 08/29/20 15:34 Review of Systems ROS Statement: Those systems with pertinent positive or pertinent negative responses have been documented in the HPI. ROS Other: All systems not noted in ROS Statement are negative. 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 CATARACTS RONY. carpal tunnelWITH LENS IMPLANT 2007, lower back spinal fusion 2018, left knee surgery 2018. Past Anesthesia/Blood Transfusion Reactions: Postoperative Nausea & Vomiting (PONV) Additional Past Anesthesia/Blood Transfusion Reaction / Comment(s): PONV and hard to wake up Past Psychological History: Anxiety, Depression Past Alcohol Use History: None Reported Past Drug Use History: None Reported - Past Family History Brother(s) Additional Family Medical History / Comment(s): Shunt has 1 brother and 1 sister but she does not have any contact with them. Patient has 3 children that are all healthy. Mother Family Medical History: Cancer Additional Family Medical History / Comment(s): . Father Family Medical History: Cancer Additional Family Medical History / Comment(s): . Course Vital Signs 05/24/21 05/24/21 00:04 00:20 Temperature 100.8 F H Pulse Rate 51 L Respiratory 22 24 Rate Blood Pressure 154/86 O2 Sat by Pulse 95 Oximetry EKG Findings - EKG Comments: EKG Findings:: EKG is sinus rhythm possible 2nd degrtee block rate 80 QRS 78 QTc 472 Medical Decision Making - Lab Data Result diagrams: 05/24/21 00:52 05/24/21 00:52 Lab Results 05/24/21 05/24/21 05/24/21 Range/Units 00:52 00:52 00:52 WBC 14.7 H (3.8-10.6) k/uL RBC 4.40 (3.80-5.40) m/uL Hgb 13.8 (11.4-16.0) gm/dL Hct 40.0 (34.0-46.0) % MCV 90.9 (80.0-100.0) fL MCH 31.3 (25.0-35.0) pg MCHC 34.5 (31.0-37.0) g/dL RDW 15.7 H (11.5-15.5) % Plt Count 139 L (150-450) k/uL MPV 9.5 Neutrophils % 87 % Lymphocytes % 9 % Monocytes % 2 % Eosinophils % 0 % Basophils % 0 % Neutrophils # 12.8 H (1.3-7.7) k/uL Lymphocytes # 1.3 (1.0-4.8) k/uL Monocytes # 0.4 (0-1.0) k/uL Eosinophils # 0.0 (0-0.7) k/uL Basophils # 0.0 (0-0.2) k/uL Poikilocytosis Slight PT 11.1 (9.0-12.0) sec INR 1.0 (<1.2) APTT 23.1 (22.0-30.0) sec Sodium 139 (137-145) mmol/L Potassium 4.0 (3.5-5.1) mmol/L Chloride 106 (98-107) mmol/L Carbon Dioxide 24 (22-30) mmol/L Anion Gap 9 mmol/L BUN 22 H (7-17) mg/dL Creatinine 1.09 H (0.52-1.04) mg/dL Est GFR (CKD-EPI)AfAm 58 (>60 ml/min/1.73 sqM) Est GFR (CKD-EPI)NonAf 50 (>60 ml/min/1.73 sqM) Glucose 151 H (74-99) mg/dL Plasma Lactic Acid See (0.7-2.0) mmol/L Calcium 9.9 (8.4-10.2) mg/dL Phosphorus 2.8 (2.5-4.5) mg/dL Magnesium 1.9 (1.6-2.3) mg/dL Total Bilirubin 1.2 (0.2-1.3) mg/dL AST 56 H (14-36) U/L ALT 39 H (4-34) U/L Alkaline Phosphatase 105 (38-126) U/L Lactate Dehydrogenase 969 H (313-618) U/L Creatine Kinase 414 H (30-135) U/L C-Reactive Protein 4.5 H (<1.0) mg/dL Total Protein 7.4 (6.3-8.2) g/dL Albumin 4.1 (3.5-5.0) g/dL Urine Color Urine Appearance (Clear) Urine pH (5.0-8.0) Ur Specific [place] (1.001-1.035) Urine Protein (Negative) Urine Glucose (UA) (Negative) Urine Ketones (Negative) Urine Blood (Negative) Urine Nitrite (Negative) Urine Bilirubin (Negative) Urine Urobilinogen (<2.0) mg/dL Ur Leukocyte Esterase (Negative) Urine RBC (0-5) /hpf Urine WBC (0-5) /hpf Ur Squamous Epith Cells (0-4) /hpf Urine Bacteria (None) /hpf Coronavirus (PCR) (Not Detectd) 05/24/21 05/24/21 05/24/21 Range/Units 00:52 00:52 00:52 WBC (3.8-10.6) k/uL RBC (3.80-5.40) m/uL Hgb (11.4-16.0) gm/dL Hct (34.0-46.0) % MCV (80.0-100.0) fL MCH (25.0-35.0) pg MCHC (31.0-37.0) g/dL RDW (11.5-15.5) % Plt Count (150-450) k/uL MPV Neutrophils % % Lymphocytes % % Monocytes % % Eosinophils % % Basophils % % Neutrophils # (1.3-7.7) k/uL Lymphocytes # (1.0-4.8) k/uL Monocytes # (0-1.0) k/uL Eosinophils # (0-0.7) k/uL Basophils # (0-0.2) k/uL Poikilocytosis PT (9.0-12.0) sec INR (<1.2) APTT (22.0-30.0) sec Sodium (137-145) mmol/L Potassium (3.5-5.1) mmol/L Chloride (98-107) mmol/L Carbon Dioxide (22-30) mmol/L Anion Gap mmol/L BUN (7-17) mg/dL Creatinine (0.52-1.04) mg/dL Est GFR (CKD-EPI)AfAm (>60 ml/min/1.73 sqM) Est GFR (CKD-EPI)NonAf (>60 ml/min/1.73 sqM) Glucose (74-99) mg/dL Plasma Lactic Acid See 2.2 H* (0.7-2.0) mmol/L Calcium (8.4-10.2) mg/dL Phosphorus (2.5-4.5) mg/dL Magnesium (1.6-2.3) mg/dL Total Bilirubin (0.2-1.3) mg/dL AST (14-36) U/L ALT (4-34) U/L Alkaline Phosphatase (38-126) U/L Lactate Dehydrogenase (313-618) U/L Creatine Kinase (30-135) U/L C-Reactive Protein (<1.0) mg/dL Total Protein (6.3-8.2) g/dL Albumin (3.5-5.0) g/dL Urine Color Yellow Urine Appearance Clear (Clear) Urine pH 6.0 (5.0-8.0) Ur Specific [place] 1.020 (1.001-1.035) Urine Protein 3+ H (Negative) Urine Glucose (UA) Negative (Negative) Urine Ketones 1+ H (Negative) Urine Blood Moderate H (Negative) Urine Nitrite Negative (Negative) Urine Bilirubin Negative (Negative) Urine Urobilinogen <2.0 (<2.0) mg/dL Ur Leukocyte Esterase Moderate H (Negative) Urine RBC 1 (0-5) /hpf Urine WBC 17 H (0-5) /hpf Ur Squamous Epith Cells 1 (0-4) /hpf Urine Bacteria Rare H (None) /hpf Coronavirus (PCR) Not Detected (Not Detectd) Disposition Clinical Impression: Weakness, Fall, Fever, UTI (urinary tract infection), Mobitz (type) I (Wenckebach's) atrioventricular block Disposition: ADMITTED IP TO THIS HOSP Condition: Fair Is patient prescribed a controlled substance at d/c from ED?: No Referrals: Romario Russ DO [Primary Care Provider] - 1-2 days
[2021-05-24] MEDS ORDERED: ACETAMINOPHEN TAB 500 MG TAB PO STA (00:33)
[2021-05-24] MEDS ORDERED: IBUPROFEN 800 MG TAB PO STA (00:33)
[2021-05-24] MEDS ORDERED: IPRATROPIUM-ALBUTEROL 3 ML NEB INHALATION STA (00:33)
[2021-05-24 01:11] LABS: Basophils % (A) 0 %; Eosinophils % (A) 0 %; HGB 13.8 gm/dL (11.4-16.0); Lymphocytes # (A) 1.3 k/uL (1.0-4.8); Lymphocytes % (A) 9 %; MCH 31.3 pg (25.0-35.0); MCHC 34.5 g/dL (31.0-37.0); MCV 90.9 fL (80.0-100.0); Mean Platelet Volume 9.5; Monocytes # (A) 0.4 k/uL (0-1.0); Monocytes % (A) 2 %; Neutrophils # (A) 12.8 k/uL (1.3-7.7); Neutrophils % (A) 87 %; Platelet Count 139 k/uL (150-450); Poikilocytosis Slight; RDW 15.7 % (11.5-15.5); WBC 14.7 k/uL (3.8-10.6)
[2021-05-24 01:18] LABS: Appearance,Urine Clear (Clear); Bacteria,Urine Rare /hpf; Bilirubin,Urine Negative (Negative); Blood,Urine Moderate (Negative); Color,Urine Yellow; Glucose,Urine (UA) Negative (Negative); Ketones,Urine 1+ (Negative); Leukocyte Esterase,Urine Moderate (Negative); Nitrite,Urine Negative (Negative); Protein,Urine 3+ (Negative); RBC,Urine 1 /hpf (0-5); Squamous Epithelial Cell,Urine 1 /hpf (0-4); Urobilinogen,Urine <2.0 mg/dL (<2.0); WBC,Urine 17 /hpf (0-5)
[2021-05-24 01:24] LABS: Partial Thromboplastin Time 23.1 sec (22.0-30.0); Prothrombin Time 11.1 sec (9.0-12.0)
[2021-05-24 01:40] LABS: Albumin 4.1 g/dL (3.5-5.0); C Reactive Protein 4.5 mg/dL (<1.0); Calcium 9.9 mg/dL (8.4-10.2); Magnesium 1.9 mg/dL (1.6-2.3); Phosphorus 2.8 mg/dL (2.5-4.5); Total Bilirubin 1.2 mg/dL (0.2-1.3); Total Protein 7.4 g/dL (6.3-8.2)
[2021-05-24] MEDS ORDERED: NALOXONE 0.4 MG/ML 1 ML VIAL IV PRN (01:43)
--- NOTE | 2021-05-24 01:50 | XR ---
EXAMINATION TYPE: XR chest 1V portable DATE OF EXAM: 05/24/2021 COMPARISON: NONE HISTORY: Cough TECHNIQUE: Single view FINDINGS: There is no heart failure nor confluent pneumonic infiltrate. Costophrenic angles are clear . There are sternal wires. There are chest leads. There is some minimal interstitial density right lung base. IMPRESSION: No heart failure. There is some new minimal interstitial infiltrate at the right lung bas e compared to old exam.
[2021-05-24 01:56] LABS: Troponin I 0.093 ng/mL (0.000-0.034)
--- NOTE | 2021-05-24 02:22 | XR ---
EXAMINATION TYPE: XR lumbar spine 2 or 3V DATE OF EXAM: 05/24/2021 COMPARISON: 09/05/2020 HISTORY: Back pain TECHNIQUE: 3 views FINDINGS: There is osteopenia. There is old posterior fusion surgery at L4-5. There is compression de formity of L5 vertebra 50%. Abdominal aorta is atheromatous. Sacroiliac joints are intact. IMPRESSION: Previous surgery. Old L5 compression fracture. No acute fracture seen. No significant neda nge compared to old exam.
--- NOTE | 2021-05-24 02:23 | XR ---
EXAMINATION TYPE: XR knee limited bilateral DATE OF EXAM: 05/24/2021 COMPARISON: NONE HISTORY: Knee pain TECHNIQUE: 4 views FINDINGS: I see no fracture nor dislocation. Joint spaces are fairly normal. There is vascular calcif ication. There is no sign of joint effusion. IMPRESSION: No acute abnormality of the left and right knee.
[2021-05-24] MEDS: MORPHINE SULFATE 4 MG/ML SYRINGE IV PRN ×2 (02:24→12:02)
[2021-05-24] MEDS ORDERED: AZITHROMYCIN 500 MG in SODIUM CHLORIDE 0.9% 250 ML IVPB ONE (03:13)
[2021-05-24] MEDS: SODIUM CHLORIDE 0.9% 1,000 ML IV SCH ×2 (09:51→20:31)
[2021-05-24] MEDS: guaiFENesin 600 MG TABLET.ER PO SCH ×2 (09:51→20:31)
[2021-05-24] MEDS ORDERED: NITROGLYCERIN SL TABS 0.4 MG TAB SUBLINGUAL PRN (11:31)
[2021-05-24] MEDS ORDERED: IPRATROPIUM-ALBUTEROL 3 ML NEB INHALATION PRN (11:45)
[2021-05-24] MEDS ORDERED: ALBUTEROL HFA INHALER INHALATION PRN (11:59)
[2021-05-24 12:03] LABS: Glucose,Whole Blood 101 mg/dL (75-99)
--- NOTE | 2021-05-24 12:12 | P.HPIM ---
History of Present Illness H&P Date: 05/24/21 HISTORY OF PRESENT ILLNESS This is a 76-year-old female patient of Dr. Russ and Dr. Kathy Ledesma with past medical history of coronary artery disease status post triple-vessel CABG in 2007, hyperlipidemia, hypertension, COPD, rheumatoid arthritis, osteoarthritis, chronic low back pain, urinary incontinence. Patient states that she is feeling very tired and weak and had 2 falls yesterday where her legs gave out on her and she slid on the gravel. She denies using her cane yesterday during the falls. She has had a cough for 1 week. She is not sure if she had fever at home. She did not seek treatment prior. She is complaining of right rib pain after the fall. Patient came into [facility] emergency center for evaluation and found to have a temperature of 100.8, heart rate 51, blood pressure 154/86, pulse ox 95% on room air. EKG is sinus rhythm. WBC 14.7, hemoglobin 13.8, platelet count 139. Electrolytes normal. BUN 22 and creatinine 1.09. Blood sugar 151. Total bilirubin 1.2, AST 56, ALT 39, alkaline phosphatase 105. LDH 969, CK 414, C-reactive protein 4.5, albumin 4.1. Lactic acid 2.2. Urinalysis clear, blood moderate, leukoesterase moderate, urine WBC 17. Escalona virus PCR not detected. Troponins 0.093, 0.133, 0.120. ProBNP 2450. Chest x-ray reveals new minimal interstitial infiltrate at the right lung base. No heart failure. Lumbar spine x-ray reveals previous surgery. Old L5 compression fracture. No acute fracture. Bilateral knee x-rays revealed no acute abnormality. Patient was started on azithromycin, ceftriaxone, blood cultures were obtained and patient admitted to the [facility] floor. REVIEW OF SYSTEMS Constitutional: Noted fever, no chills, no night sweats. No weight change. Reported weakness, Reported fatigue no lethargy. No daytime sleepiness. EENT: No headache. No blurred vision or double vision, no loss of vision. No loss of Hearing, no ringing in the ears, no dizziness. No nasal drainage or congestion. No epistaxis. No sore throat. Lungs: No shortness of breath, reports cough, reports sputum production. No wheezing. Cardiovascular: No chest pain, no lower extremity edema. No palpitations. No paroxysmal nocturnal dyspnea. No orthopnea. No lightheadedness or dizziness. No syncopal episodes. Abdominal: No abdominal pain. No nausea, vomiting. No diarrhea. No constipation. No bloody or tarry stools.. No loss of appetite. Genitourinary: No dysuria, increased frequency, urgency. No urinary retention. Musculoskeletal: No myalgias. Reported muscle weakness, Reported gait dysfunction, Reported frequent falls. Chronic back pain. No neck pain. Rep orts right rib pain. Integumentary: No wounds, no lesions. No rash or pruritus. No unusual bruisin g. No change in hair or nails. Neurologic: No aphasia. No facial droop. No change in mentation. No head injury. No headache. No paralysis. No paresthesia. Psychiatric: No depression. No anxiety. No mood swings. Endocrine: Noted abnormal blood sugar. . SOCIAL HISTORY Patient was a smoker of one pack per day since she was 17 years old and quit in 2007. She denies any marijuana, street drug or alcohol use. She lives at home with her . She does not have home oxygen, nebulizer, CPAP. She utilizes cane occasionally. FAMILY HISTORY Mother at age 72 from liver cancer. Father at age 64 from lung cancer. Patient has one brother and one sister that she has no contact with. She has 3 children that are all healthy as far she knows. PHYSICAL EXAMINATION Gen: This is an obese 76-year-old female. Patient is resting in bed and appears to be comfortable at rest. HEENT: Head is atraumatic, normocephalic. Pupils equal, round. Sclerae is anicteric. NECK: Supple. No JVD. No lymphadenopathy. No thyromegaly. LUNGS: Diminished with bilateral rhonchi and expiratory wheeze. No intercostal retractions. No accessory muscle usage. HEART: Regular rate and rhythm. No murmur. ABDOMEN: Soft. Bowel sounds are present. No masses. No tenderness. EXTREMITIES: No pedal edema. No calf tenderness. NEUROLOGICAL: Patient is awake, alert and oriented x3. Cranial nerves 2 through 12 are grossly intact. ASSESSMENT AND PLAN 1. Sepsis secondary to acute right-sided pneumonia, possible gram-negative pneumonia and urinary tract infection. Patient started on azithromycin and ceftriaxone, DuoNeb treatments 3 times daily and as needed. Obtained and monitor urine, blood and sputum cultures. 2. Rhabdomyolysis. Repeat CK daily 2, continue IV fluids at 100 mL per hour. 3. Lactic acidosis secondary to sepsis. Continue protocol, continue IV fluids at 100 mL per hour. 4. Elevated troponins. Cardiology consult and echocardiogram ordered. 5. Hyperglycemia without history of diabetes. Patient will place on NovoLog scale, obtain A1c. 6. Falls secondary to sepsis, generalized weakness. PT and OT. Anticipate need for subacute rehab. 7. Hypertension. Continue Imdur 30 mg daily, Lopressor 50 mg twice daily, Bumex will be resumed tomorrow and IV fluids discontinued if CPK is improving. 8. History of coronary artery disease status post triple-vessel CABG in [address] Ferraro. Continue Imdur 30 mg daily, Lopressor 50 mg twice daily, aspirin 81 mg daily. 9. Hyperlipidemia. Patient not currently on statins due to leg cramps. 10. Rheumatoid arthritis. Hold methotrexate for now. 11. Chronic back pain and peripheral neuropathy. Continue Lyrica 100 mg twice daily. 12. GI prophylaxis. Protonix. 13. DVT prophylaxis. Heparin subcu. 14. COVID-19 testing negative. Patient has been hospitalized during a pandemic. Patient will be admitted to the hospital for a minimum of 2 night stay. DISCHARGE PLAN To be determined. PT and OT added. Impression and plan of care have been directed as dictated by the signing physician. Betzy Lyman nurse practitioner acting as scribe for signing physician. 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 CATARACTS RONY. carpal tunnelWITH LENS IMPLANT 2007, lower back spinal fusion 2017, left knee surgery 2018., Past Anesthesia/Blood Transfusion Reactions: Postoperative Nausea & Vomiting (PONV) Additional Past Anesthesia/Blood Transfusion Reaction / Comment(s): PONV and hard to wake up Past Psychological History: Anxiety, Depression Additional Psychological History / Comment(s): pt admits to having some d epression currently. denies any thoughts of harming self but sometimes feels hopless d/t inner ear problem that they have'nt been able to get rid of. Smoking Status: Former smoker Past Alcohol Use History: None Reported Additional Past Alcohol Use History / Comment(s): QUIT 2007 WAS 1PPD smoker since age 17 or 19. She denies any medical marijuana, marijuana, street drug or alcohol use. She lives at home with her of 52 years. Past Drug Use History: None Reported - Past Family History Brother(s) Additional Family Medical History / Comment(s): Shunt has 1 brother and 1 sister but she does not have any contact with them. Patient has 3 children that are all healthy. Mother Family Medical History: Cancer Additional Family Medical History / Comment(s): . Father Family Medical History: Cancer Additional Family Medical History / Comment(s): . Medications and Allergies Home Medications Medication Instructions Recorded Confirmed Type Isosorbide Mononitrate ER [Imdur] 30 mg PO DAILY 04/06/15 05/24/21 History Metoprolol Tartrate [Lopressor] 50 mg PO BID 04/06/15 05/24/21 History Nitroglycerin Sl Tabs [Nitrostat] 0.4 mg SUBLINGUAL Q5M PRN 04/06/15 05/24/21 History Multivitamins, Thera [Multivitamin 1 tab PO DAILY 06/14/16 05/24/21 History (formulary)] Potassium Chloride [Klor-Con 20] 20 meq PO DAILY 07/24/18 05/24/21 History Aspirin [Children's Aspirin] 81 mg PO HS 01/21/19 05/24/21 History Bumetanide [BUMEX] 1 mg PO DAILY 01/21/19 05/24/21 History Folic Acid 1 mg PO DAILY 01/21/19 05/24/21 History metHOTREXate sodium [Methotrexate] 1 dose PO SAMANIEGO 01/21/19 05/24/21 History Docusate [Colace] 100 mg PO DAILY 05/24/21 05/24/21 History Ergocalciferol [Vitamin D2 (1250 1,250 mcg PO SAMANIEGO 05/24/21 05/24/21 History Mcg = 08626 Iu)] Fluticasone Nasal Crum [Flonase 1 spray EA NOSTRIL DAILY 05/24/21 05/24/21 History Nasal Crum] HYDROcodone/APAP 10-325MG [Sublette 0.5 tab PO PC-LUNCH 05/24/21 05/24/21 History 10-325] Pregabalin [Lyrica] 100 mg PO BID@1400,2100 05/24/21 05/24/21 History Allergies Allergy/AdvReac Type Severity Reaction Status Date / Time amlodipine [From Norvasc] Allergy Unknown Verified 05/24/21 09:57 diazepam [From Valium] Allergy hard time Verified 05/24/21 09:57 coming out of anesthesia amoxicillin trihydrate AdvReac Severe Nausea & Verified 05/24/21 09:57 [From Augmentin] Vomiting & Diarrhea potassium clavulanate AdvReac Severe Nausea & Verified 05/24/21 09:57 [From Augmentin] Vomiting & Diarrhea sulfamethoxazole AdvReac Severe affected Verified 05/24/21 09:57 [From Bactrim] muscles - couldn't move trimethoprim [From Bactrim] AdvReac Severe affected Verified 05/24/21 09:57 muscles - couldn't move Rvlnnad-Ltl-Pve Reductase AdvReac leg cramps Verified 05/24/21 09:57 Inhibitor xanax AdvReac Unknown Uncoded 08/29/20 15:34 Physical Exam Vitals: Vital Signs Temp Pulse Pulse Resp BP BP Pulse Ox 05/24/21 06:57 97.7 F 53 L 18 135/70 92 L 05/24/21 04:29 98.6 F 92 15 112/56 92 L 05/24/21 03:38 98.0 F 81 18 131/69 95 05/24/21 02:21 98.8 F 64 18 95 05/24/21 02:11 70 05/24/21 01:00 87 18 158/70 95 05/24/21 00:20 24 05/24/21 00:04 100.8 F H 51 L 22 154/86 95 Intake and Output 05/23/21 05/24/21 05/24/21 22:59 06:59 14:59 Intake Total 250 Balance 250 Intake: Intake, IV Titration 250 Amount Azithromycin 500 mg In 250 Sodium Chloride 0.9% 250 ml @ 250 mls/hr IVPB Q24H [facility] Rx#:[id number] Other: Weight 87.997 kg Results CBC & Chem 7: 05/24/21 00:52 05/24/21 00:52 Labs: Abnormal Lab Results - Last 24 Hours (Table) 05/24/21 05/24/21 05/24/21 Range/Units 00:52 00:52 00:52 WBC 14.7 H (3.8-10.6) k/uL RDW 15.7 H (11.5-15.5) % Plt Count 139 L (150-450) k/uL Neutrophils # 12.8 H (1.3-7.7) k/uL BUN 22 H (7-17) mg/dL Creatinine 1.09 H (0.52-1.04) mg/dL Glucose 151 H (74-99) mg/dL Plasma Lactic Acid See (0.7-2.0) mmol/L AST 56 H (14-36) U/L ALT 39 H (4-34) U/L Lactate Dehydrogenase 969 H (313-618) U/L Creatine Kinase 414 H (30-135) U/L CK-MB (CK-2) (0.0-2.4) ng/mL Troponin I (0.000-0.034) ng/mL C-Reactive Protein 4.5 H (<1.0) mg/dL Urine Protein 3+ H (Negative) Urine Ketones 1+ H (Negative) Urine Blood Moderate H (Negative) Ur Leukocyte Esterase Moderate H (Negative) Urine WBC 17 H (0-5) /hpf Urine Bacteria Rare H (None) /hpf 05/24/21 05/24/21 05/24/21 Range/Units 00:52 00:52 04:14 WBC (3.8-10.6) k/uL RDW (11.5-15.5) % Plt Count (150-450) k/uL Neutrophils # (1.3-7.7) k/uL BUN (7-17) mg/dL Creatinine (0.52-1.04) mg/dL Glucose (74-99) mg/dL Plasma Lactic Acid See 2.2 H* (0.7-2.0) mmol/L AST (14-36) U/L ALT (4-34) U/L Lactate Dehydrogenase (313-618) U/L Creatine Kinase (30-135) U/L CK-MB (CK-2) 4.0 H (0.0-2.4) ng/mL Troponin I 0.093 H* 0.133 H* (0.000-0.034) ng/mL C-Reactive Protein (<1.0) mg/dL Urine Protein (Negative) Urine Ketones (Negative) Urine Blood (Negative) Ur Leukocyte Esterase (Negative) Urine WBC (0-5) /hpf Urine Bacteria (None) /hpf 05/24/21 05/24/21 05/24/21 Range/Units 04:14 07:15 08:28 WBC (3.8-10.6) k/uL RDW (11.5-15.5) % Plt Count (150-450) k/uL Neutrophils # (1.3-7.7) k/uL BUN (7-17) mg/dL Creatinine (0.52-1.04) mg/dL Glucose (74-99) mg/dL Plasma Lactic Acid See 3.5 H* 2.1 H* (0.7-2.0) mmol/L AST (14-36) U/L ALT (4-34) U/L Lactate Dehydrogenase (313-618) U/L Creatine Kinase (30-135) U/L CK-MB (CK-2) (0.0-2.4) ng/mL Troponin I 0.120 H* (0.000-0.034) ng/mL C-Reactive Protein (<1.0) mg/dL Urine Protein (Negative) Urine Ketones (Negative) Urine Blood (Negative) Ur Leukocyte Esterase (Negative) Urine WBC (0-5) /hpf Urine Bacteria (None) /hpf Thrombosis Risk Factor Assmnt - Choose All That Apply Each Factor Represents 1 point: Medical pt on bed rest, Obesity (BMI >25) Each Risk Factor Represents 3 Points: Age 75 years or older Thrombosis Risk Factor Assessment Total Risk Factor Score: 5 Thrombosis Risk Factor Assessment Level: High Risk
[2021-05-24] MEDS: INSULIN ASPART (NovoLOG) 100 UNIT/ML VIAL SQ SCH ×3 (12:50→20:37)
[2021-05-24] MEDS ORDERED: IPRATROPIUM-ALBUTEROL 3 ML NEB INHALATION SCH (13:00)
[2021-05-24] MEDS: ALBUTEROL HFA INHALER INHALATION SCH ×2 (13:36→20:35)
[2021-05-24] MEDS: HYDROcodone/APAP 10-325MG 1 EACH TAB PO SCH (14:38)
[2021-05-24] MEDS: PREGABALIN 100 MG CAP PO SCH ×2 (14:38→20:31)
--- NOTE | 2021-05-24 15:03 | XR ---
Right RIBS HISTORY: Trauma and pain 4 views of the right ribs, correlation to chest x-ray same date There is no evident displaced rib fracture. Low bone mineralization could limit evaluation. There is no pneumothorax or pleural effusion. Patient is post median sternotomy and cholecystectomy. There are overlying artifacts. Degenerative changes are present in the visualized spine. Postoperative changes noted in the lower lumbar spine. IMPRESSION: No evident displaced rib fracture. Bone scan could be performed if occult fracture is luis m pected clinically as indicated.
[2021-05-24 16:31] LABS: Glucose,Whole Blood 136 mg/dL (75-99)
[2021-05-24] MEDS: HEPARIN SODIUM,PORCINE/PF 5,000 UNIT/0.5 ML SYRINGE SQ SCH ×2 (16:42→23:38)
[2021-05-24] MEDS: METOPROLOL TARTRATE 50 MG TAB PO SCH (20:31)
[2021-05-24] MEDS: ASPIRIN 81 MG PO SCH (20:31)
[2021-05-24 20:36] LABS: Glucose,Whole Blood 107 mg/dL (75-99)
[2021-05-25] MEDS: AZITHROMYCIN 500 MG in SODIUM CHLORIDE 0.9% 250 ML IVPB SCH (06:07)
[2021-05-25] MEDS: SODIUM CHLORIDE 0.9% 1,000 ML IV SCH ×2 (06:07→09:50)
[2021-05-25 06:41] LABS: Glucose,Whole Blood 98 mg/dL (75-99)
[2021-05-25] MEDS: ALBUTEROL HFA INHALER INHALATION SCH ×3 (07:26→21:58)
--- NOTE | 2021-05-25 07:47 | ECHOF ---
Referral Reason:LVF MEASUREMENTS -------- HEIGHT: 160.0 cm WEIGHT: 88.0 kg BP: 135/70 RVIDd: 3.3 cm (< 3.3) IVSd: 1.2 cm (0.6 - 1.1) LVIDd: 3.9 cm (3.9 - 5.3) LVPWd: 1.3 cm (0.6 - 1.1) IVSs: 1.8 cm LVIDs: 2.6 cm LVPWs: 1.6 cm LA Diam: 3.8 cm (2.7 - 3.8) Ao Diam: 2.8 cm (2.0 - 3.7) MV EXCURSION: 15.618 mm (> 18.000) MV EF SLOPE: 107 mm/s (70 - 150) EPSS: 0.4 cm MV E Gregg: 0.80 m/s MV DecT: 138 ms MV A Gregg: 1.16 m/s MV E/A Ratio: 0.69 FINDINGS -------- Sinus rhythm. This was a technically difficult study with suboptimal views. The left ventricular size is normal. There is mild concentric left ventricular hypertrophy. Overa ll left ventricular systolic function is normal with, an EF between 60 - 65 %. The right ventricle is mildly enlarged. The left atrium is normal in size. The right atrium is normal in size. There is mild aortic valve sclerosis. Trace to mild aortic regurgitation. Mild mitral annular calcification present. The tricuspid valve appears structurally normal. Unable to estimate RVSP due to inadequate TR jet s pectral doppler profile. The pulmonic valve was not well visualized. The aortic root size is normal. Normal inferior vena cava with normal inspiratory collapse consistent with estimated right atrial pre ssure of 5 mmHg. There is no pericardial effusion. CONCLUSIONS -------- 1. The left ventricular size is normal. 2. There is mild concentric left ventricular hypertrophy. 3. Overall left ventricular systolic function is normal with, an EF between 60 - 65 %. 4. The right ventricle is mildly enlarged. 5. There is mild aortic valve sclerosis. 6. Trace to mild aortic regurgitation. 7. Mild mitral annular calcification present. 8. There is no pericardial effusion. BROACHER: Christel Stewart RD
[2021-05-25 07:48] LABS: ALT 31 U/L (4-34); AST 43 U/L (14-36); African American GFR (CKD) 56 (>60 ml/min/1.73 sqM); Albumin 3.4 g/dL (3.5-5.0); Albumin/Globulin Ratio 1.1; Alkaline Phosphatase 81 U/L (38-126); Anion Gap 6 mmol/L; Blood Urea Nitrogen 20 mg/dL (7-17); Calcium 9.3 mg/dL (8.4-10.2); Carbon Dioxide 23 mmol/L (22-30); Chloride 108 mmol/L (98-107); Creatine Kinase 389 U/L (30-135); Glucose 108 mg/dL (74-99); Magnesium 1.9 mg/dL (1.6-2.3); Non-African American GFR(CKD) 48 (>60 ml/min/1.73 sqM); Phosphorus 2.6 mg/dL (2.5-4.5); Potassium 4.5 mmol/L (3.5-5.1); Sodium 137 mmol/L (137-145); Total Bilirubin 0.8 mg/dL (0.2-1.3); Total Protein 6.4 g/dL (6.3-8.2)
[2021-05-25] MEDS: INSULIN ASPART (NovoLOG) 100 UNIT/ML VIAL SQ SCH ×4 (07:50→20:23)
[2021-05-25] MEDS: POTASSIUM CHLORIDE ER 20 MEQ TAB.ER PO SCH (07:51)
[2021-05-25] MEDS: PANTOPRAZOLE 40 MG TABLET PO SCH (07:51)
[2021-05-25] MEDS: HEPARIN SODIUM,PORCINE/PF 5,000 UNIT/0.5 ML SYRINGE SQ SCH ×2 (07:51→16:42)
[2021-05-25] MEDS: ISOSORBIDE MONONITRATE ER 30 MG TAB.ER.24H PO SCH (07:52)
[2021-05-25] MEDS: guaiFENesin 600 MG TABLET.ER PO SCH ×2 (07:52→20:30)
[2021-05-25] MEDS: DOCUSATE 100 MG CAP PO SCH (07:52)
[2021-05-25] MEDS: FOLIC ACID 1 MG TAB PO SCH (07:52)
[2021-05-25] MEDS: METOPROLOL TARTRATE 50 MG TAB PO SCH ×2 (07:52→20:30)
[2021-05-25] MEDS: FLUTICASONE 50MCG/SPRAY NASAL 16GM EA NOSTRIL SCH (07:52)
[2021-05-25] MEDS: MULTIVITAMINS, THERA 1 EACH TAB PO SCH (07:52)
[2021-05-25] MEDS ORDERED: BUMETANIDE 1 MG TAB PO SCH (09:00)
[2021-05-25] MEDS: MORPHINE SULFATE 4 MG/ML SYRINGE IV PRN ×2 (09:54→20:31)
--- NOTE | 2021-05-25 10:13 | P.CRDCN ---
History of Present Illness History of present illness: HISTORY OF PRESENTING ILLNESS This is a pleasant 76-year-old female past medical history significant for coronary artery disease status post 4vessel CABG in 2007 (SCHWAB to LAD, SVG to diagonal, SVG to OM, SVG to RCA), aortic regurgitation, hypertension, dyslipidemia, severe rheumatoid arthritis,former tobacco use, chronic back pain. She follows in the office with Dr. Martinez. We have been asked to see in consultation for elevated troponin. Patient presents to the emergency department on 05/23/21 night with symptoms of cough, fever, feeling tired, weak and had 2 falls at home where her legs gave out from underneath her. She states her first fall she was walking to/from her barn, and she felt weak and her legs kind of gave way. She denies lightheadedness, dizziness, syncope. She states she just felt tired and weak. She was having symptoms of shortness of breath, cough and not feeling well at home. She states she did fall again with the same description and decided to present to the emergency department. She was febrile on admission. She denies any chest pain, palpitations, lightheadedness, dizziness, syncope. She denies any complications after her CABG. She is a non- smoker. DIAGNOSTICS EKG reveals sinus rhythm, heart rate 90 second-degree AV block type I, no significant ST-T wave changes Echocardiogram revealed EF of 6065 percent, RV is mildly enlarged, trace to mild regurgitation Lexiscan stress test in 04/2019 was normal Chest xray - new minimal interstitial infiltrate at right lung base Lumbar spine xray report previous fusion surgery at L4-L5, compression deformity of L5, no fracture Knee xray bilateral report- no fracture or dislocation Laboratory data on admission, WBC 14.7, hemoglobin 13, platelets 139, sodium 139, potassium 4.2, BUN 22, serum creatinine 1.09, lactic 3.5, Creatinine kinase 577, CK MB 4.0, C reactive protein 4.5, AST 56, ALT 439 troponin trend 0.09, 0.13, 0.12, Pro BNP 2450, UA positive for UTI, covid-19 PCR negative Current home medications include methotrexate, PRN [place], aspirin 81mg daily, PRN nitro, Lyrica, Lopressor 50mg BID, Imdur 30 mg daily, Klor-con 20meq daily, Bumex 1mg daily REVIEW OF SYSTEMS At the time of my exam: CONSTITUTIONAL: Denies fever or chills. CARDIOVASCULAR: Denies chest pain, shortness of breath, orthopnea, PND or palpitations. RESPIRATORY: Denies cough. GASTROINTESTINAL: Denies abdominal pain, diarrhea, constipation, nausea or vomiting. MUSCULOSKELETAL: Denies myalgias. NEUROLOGIC: Denies numbness, tingling, headacbe or weakness. ENDOCRINE: Denies fatigue, weight change, polydipsia or polyurina. GENITOURINARY: Denies burning, hematuria or urgency with micturation. HEMATOLOGIC: Denies history of anemia or bleeding. PHYSICAL EXAMINATION Blood pressure 153/78, heart rate 87, temperature 100.5 F, maintaining saturations of liters nasal cannula CONSTITUTIONAL: No apparent distress. appears short of breath. HEENT: Head is normocephalic. Pupils are equal, round. Sclerae anicteric. Mucous membranes of the mouth are moist. No JVD. No carotid bruit. CHEST EXAMINATION: Lungs are diminished in the right lower lung base to auscultation. No chest wall tenderness is noted on palpation or with deep breathing. HEART EXAMINATION: Regular rate and rhythm. S1, S2 heard. No murmurs, gallops or rub. ABDOMEN: Soft, nontender. Positive bowel sounds. EXTREMITIES: 2+ peripheral pulses, no lower extremity edema and no calf tenderness. NEUROLOGIC EXAMINATION: Patient is awake, alert and oriented x3. ASSESSMENT Weakness, mechanical fall Elevated troponin, not indicative of acute coronary syndrome, most likely related to supply and demand mismatch New minimal interstitial infiltrate at right lung base seen on chest xray Lactic acidosis Hypertension Coronary artery disease status post 4vessel CABG in 2007 (SCHWAB to LAD, SVG to diagonal, SVG to OM, SVG to RCA) Aortic regurgitation Mitral regurgitation Dyslipidemia Severe rheumatoid arthritis PLAN -Echocardiogram obtain and reviewed, normal LV function without significant wall motion abnormalities. EKG with no evidence of acute ischemia. Troponins not indicative of acute coronary syndrome. Patient appears clinically euvolemic. From cardiology perspective, no further cardiac testing indicated at this time. We will follow the patient as needed. please reach out with further questions or concerns. -Patient to follow up with Dr. Martinez outpatient Nurse Practitioner note has been reviewed, I agree with a documented findings a nd plan of care. Patient was seen and examined. 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 CATARACTS RONY. carpal tunnelWITH LENS IMPLANT 2007, lower back spinal fusion 2018, left knee surgery 2018., Past Anesthesia/Blood Transfusion Reactions: Postoperative Nausea & Vomiting (PONV) Additional Past Anesthesia/Blood Transfusion Reaction / Comment(s): PONV and hard to wake up Past Psychological History: Anxiety, Depression Additional Psychological History / Comment(s): pt admits to having some depression currently. denies any thoughts of harming self but sometimes feels hopless d/t inner ear problem that they have'nt been able to get rid of. Smoking Status: Former smoker Past Alcohol Use History: None Reported Additional Past Alcohol Use History / Comment(s): QUIT 2007 WAS 1PPD smoker since age 17 or 19. She denies any medical marijuana, marijuana, street drug or alcohol use. She lives at home with her of 52 years. Past Drug Use History: None Reported - Past Family History Brother(s) Additional Family Medical History / Comment(s): Shunt has 1 brother and 1 sister but she does not have any contact with them. Patient has 3 children that are all healthy. Mother Family Medical History: Cancer Additional Family Medical History / Comment(s): . Father Family Medical History: Cancer Additional Family Medical History / Comment(s): . Medications and Allergies Home Medications Medication Instructions Recorded Confirmed Type Isosorbide Mononitrate ER [Imdur] 30 mg PO DAILY 04/06/15 05/24/21 History Metoprolol Tartrate [Lopressor] 50 mg PO BID 04/06/15 05/24/21 History Nitroglycerin Sl Tabs [Nitrostat] 0.4 mg SUBLINGUAL Q5M PRN 04/06/15 05/24/21 History Multivitamins, Thera [Multivitamin 1 tab PO DAILY 06/14/16 05/24/21 History (formulary)] Potassium Chloride [Klor-Con 20] 20 meq PO DAILY 07/24/18 05/24/21 History Aspirin [Children's Aspirin] 81 mg PO HS 01/21/19 05/24/21 History Bumetanide [BUMEX] 1 mg PO DAILY 01/21/19 05/24/21 History Folic Acid 1 mg PO DAILY 01/21/19 05/24/21 History metHOTREXate sodium [Methotrexate] 15 mg PO SAMANIEGO 01/21/19 05/24/21 History Docusate [Colace] 100 mg PO DAILY 05/24/21 05/24/21 History Ergocalciferol [Vitamin D2 (1250 1,250 mcg PO SAMANIEGO 05/24/21 05/24/21 History Mcg = 98906 Iu)] Fluticasone Nasal [place] [Flonase 1 spray EA NOSTRIL DAILY 05/24/21 05/24/21 History Nasal [place]] HYDROcodone/APAP 10-325MG [[place] 0.5 tab PO PC-LUNCH 05/24/21 05/24/21 History 10-325] Pregabalin [Lyrica] 100 mg PO BID@1400,2100 05/24/21 05/24/21 History Allergies Allergy/AdvReac Type Severity Reaction Status Date / Time amlodipine [From Norvasc] Allergy Unknown Verified 05/24/21 09:57 diazepam [From Valium] Allergy hard time Verified 05/24/21 09:57 coming out of anesthesia amoxicillin trihydrate AdvReac Severe Nausea & Verified 05/24/21 09:57 [From Augmentin] Vomiting & Diarrhea potassium clavulanate AdvReac Severe Nausea & Verified 05/24/21 09:57 [From Augmentin] Vomiting & Diarrhea sulfamethoxazole AdvReac Severe affected Verified 05/24/21 09:57 [From Bactrim] muscles - couldn't move trimethoprim [From Bactrim] AdvReac Severe affected Verified 05/24/21 09:57 muscles - couldn't move [id number] Reductase AdvReac leg cramps Verified 05/24/21 09:57 Inhibitor xanax AdvReac Unknown Uncoded 08/29/20 15:34 Physical Exam Vitals: Vital Signs Temp Pulse Pulse Resp BP BP Pulse Ox 05/24/21 06:57 97.7 F 53 L 18 135/70 92 L 05/24/21 04:29 98.6 F 92 15 112/56 92 L 05/24/21 03:38 98.0 F 81 18 131/69 95 05/24/21 02:21 98.8 F 64 18 95 05/24/21 02:11 70 05/24/21 01:00 87 18 158/70 95 05/24/21 00:20 24 05/24/21 00:04 100.8 F H 51 L 22 154/86 95 Intake and Output 05/23/21 05/24/21 05/24/21 22:59 06:59 14:59 Intake Total 250 Balance 250 Intake: Intake, IV Titration 250 Amount Azithromycin 500 mg In 250 Sodium Chloride 0.9% 250 ml @ 250 mls/hr IVPB Q24H [facility] Rx#:[id number] Other: Weight 87.997 kg Results 05/24/21 00:52 05/25/21 06:53 Cardiac Enzymes 05/24/21 05/24/21 05/24/21 Range/Units 00:52 00:52 04:14 AST 56 H (14-36) U/L Lactate Dehydrogenase 969 H (313-618) U/L CK-MB (CK-2) 4.0 H (0.0-2.4) ng/mL Troponin I 0.093 H* 0.133 H* (0.000-0.034) ng/mL 05/24/21 Range/Units 07:15 AST (14-36) U/L Lactate Dehydrogenase (313-618) U/L CK-MB (CK-2) (0.0-2.4) ng/mL Troponin I 0.120 H* (0.000-0.034) ng/mL Coagulation 05/24/21 Range/Units 00:52 PT 11.1 (9.0-12.0) sec APTT 23.1 (22.0-30.0) sec CBC 05/24/21 Range/Units 00:52 WBC 14.7 H (3.8-10.6) k/uL RBC 4.40 (3.80-5.40) m/uL Hgb 13.8 (11.4-16.0) gm/dL Hct 40.0 (34.0-46.0) % Plt Count 139 L (150-450) k/uL Comprehensive Metabolic Panel 05/24/21 Range/Units 00:52 Sodium 139 (137-145) mmol/L Potassium 4.0 (3.5-5.1) mmol/L Chloride 106 (98-107) mmol/L Carbon Dioxide 24 (22-30) mmol/L BUN 22 H (7-17) mg/dL Creatinine 1.09 H (0.52-1.04) mg/dL Glucose 151 H (74-99) mg/dL Calcium 9.9 (8.4-10.2) mg/dL AST 56 H (14-36) U/L ALT 39 H (4-34) U/L Alkaline Phosphatase 105 (38-126) U/L Total Protein 7.4 (6.3-8.2) g/dL Albumin 4.1 (3.5-5.0) g/dL Current Medications Generic Name Dose Route Start Last Admin Trade Name Freq PRN Reason Stop Dose Admin Hydrocodone Bitart/Acetaminophen 0.5 each 05/24/21 13:30 Hydrocodone/Apap 10-325mg 1 Each Tab PO PC-LUNCH [place] Albuterol Sulfate 2 puff 05/24/21 13:00 Albuterol Hfa Inhaler INHALATION RT-TID [place] Albuterol Sulfate 2 puff 05/24/21 11:59 Albuterol Hfa Inhaler INHALATION RT-Q2H PRN Shortness Of Breath Or Wheezing Aspirin 81 mg 05/24/21 21:00 Aspirin 81 Mg PO HS [place] Docusate Sodium 100 mg 05/25/21 09:00 Docusate 100 Mg Cap PO DAILY [place] Fluticasone Propionate 1 spray 05/25/21 09:00 Fluticasone 50mcg/[place] Nasal 16gm EA NOSTRIL DAILY [place] Folic Acid 1 mg 05/25/21 09:00 Folic Acid 1 Mg Tab PO DAILY [place] Guaifenesin 1,200 mg 05/24/21 09:45 05/24/21 09:51 Guaifenesin 600 Mg Tablet.Er PO 1,200 mg Q12HR [place] Administration Heparin Sodium (Porcine) 5,000 unit 05/24/21 16:00 Heparin Sodium,Porcine/Pf 5,000 Unit/0.5 Ml Syringe SQ Q8HR [place] Ceftriaxone Sodium 1 gm/ 50 mls @ 100 mls/hr 05/24/21 14:00 Sodium Chloride IVPB Q12H [facility] Azithromycin 500 mg/ Sodium 250 mls @ 250 mls/hr 05/25/21 06:00 Chloride IVPB Q24H [facility] Sodium Chloride 1,000 mls @ 100 mls/hr 05/24/21 09:45 05/24/21 09:51 Saline 0.9% IV 100 mls/hr .Q10H [place] Administration Insulin Aspart 0 unit 05/24/21 12:30 05/24/21 12:50 Insulin Aspart (Novolog) 100 Unit/Ml Vial SQ Not Given ACHS [facility] Protocol Isosorbide Mononitrate 30 mg 05/25/21 09:00 Isosorbide Mononitrate Er 30 Mg Tab.Er.24h PO DAILY [facility] Metoprolol Tartrate 50 mg 05/24/21 21:00 Metoprolol Tartrate 50 Mg Tab PO BID [facility] Morphine Sulfate 4 mg 05/24/21 01:43 05/24/21 12:02 Morphine Sulfate 4 Mg/Ml Syringe IV 4 mg Q4HR PRN Administration Severe Pain Multivitamins 1 each 05/25/21 09:00 Multivitamins, Thera 1 Each Tab PO DAILY [facility] Naloxone HCl 0.2 mg 05/24/21 01:43 Naloxone 0.4 Mg/Ml 1 Ml Vial IV Q2M PRN Opioid Reversal Nitroglycerin 0.4 mg 05/24/21 11:31 Nitroglycerin Sl Tabs 0.4 Mg Tab SUBLINGUAL Q5M PRN Chest Pain Pantoprazole Sodium 40 mg 05/25/21 07:30 Pantoprazole 40 Mg Tablet PO AC-BRKFST [facility] Potassium Chloride 20 meq 05/25/21 09:00 Potassium Chloride Er 20 Meq Tab.Er PO DAILY [facility] Pregabalin 100 mg 05/24/21 14:00 Pregabalin 100 Mg Cap PO BID@1400,2100 [facility] Intake and Output 05/23/21 05/24/21 05/24/21 22:59 06:59 14:59 Intake Total 250 Balance 250 Intake: Intake, IV Titration 250 Amount Azithromycin 500 mg In 250 Sodium Chloride 0.9% 250 ml @ 250 mls/hr IVPB Q24H [facility] Rx#:[id number] Other: Weight 87.997 kg 05/24/21 00:52 05/24/21 00:52
--- NOTE | 2021-05-25 11:00 | P.CNPUL ---
History of Present Illness Consult date: 05/25/21 Reason for consult: pneumonia History of present illness: -76 year-old female patient was hospitalized for generalized weakness and falls. She is currently under investigation for underlying infection/sepsis.. She has some congested cough. No worsening shortness of breath. She is on oxygen 2 L in the pulse ox is ranging between 95-97%. No pleurisy. No hemoptysis. No chest pain. No swelling lower extremities. No dysuria frequency urgency. She had a diarrhea approximately 2 weeks ago did recover. No altered mentation. No headaches. Her CPK slightly elevated and the patient was having some falls. There is also some minimal troponin leak. She has been vaccinated for COVID-19 and her COVID-19 testing was negative. Troponins were 0.09 0.13 and 0.12 and the proBNP level was 2450. Chest x-ray shows no acute consolidation. Q uestionable interstitial changes in the right lung base. X-ray of the lumbar spine showed an old compression fracture of the L5 spine. Bilateral knee x-ray showed degenerative arthritis. Her sugar is 151. Bilirubin is at 1.2. LFTs are slightly abnormal with an AST of 56 ALT of 39. Alkaline phosphatase of 105. LDH is 969. CRP is at 4.5. Lactic acid level was 2.2 and urinalysis was essentially negative. Currently on accommodation Rocephin and Zithromax. Review of Systems Constitutional: Noted fever, no chills, no night sweats. No weight change. Reported weakness, Reported fatigue no lethargy. No daytime sleepiness. EENT: No headache. No blurred vision or double vision, no loss of vision. No loss of Hearing, no ringing in the ears, no dizziness. No nasal drainage or congestion. No epistaxis. No sore throat. Lungs: No shortness of breath, reports cough, reports sputum production. No wheezing. Cardiovascular: No chest pain, no lower extremity edema. No palpitations. No paroxysmal nocturnal dyspnea. No orthopnea. No lightheadedness or dizziness. No syncopal episodes. Abdominal: No abdominal pain. No nausea, vomiting. No diarrhea. No constipation. No bloody or tarry stools.. No loss of appetite. Genitourinary: No dysuria, increased frequency, urgency. No urinary retention. Musculoskeletal: No myalgias. Reported muscle weakness, Reported gait dysfunction, Reported frequent falls. Chronic back pain. No neck pain. Reports right rib pain. Integumentary: No wounds, no lesions. No rash or pruritus. No unusual bruising. No change in hair or nails. Neurologic: No aphasia. No facial droop. No change in mentation. No head injury. No headache. No paralysis. No paresthesia. Psychiatric: No depression. No anxiety. No mood swings. Endocrine: Noted abnormal blood sugar. . 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 CATARACTS RONY. carpal tunnelWITH LENS IMPLANT 2007, lower back spinal fusion 2018, left knee surgery 2018., Past Anesthesia/Blood Transfusion Reactions: Postoperative Nausea & Vomiting (PONV) Additional Past Anesthesia/Blood Transfusion Reaction / Comment(s): PONV and hard to wake up Past Psychological History: Anxiety, Depression Additional Psychological History / Comment(s): pt admits to having some depression currently. denies any thoughts of harming self but sometimes feels hopless d/t inner ear problem that they have'nt been able to get rid of. Smoking Status: Former smoker Past Alcohol Use History: None Reported Additional Past Alcohol Use History / Comment(s): QUIT 2008 WAS 1PPD smoker since age 17 or 19. She denies any medical marijuana, marijuana, street drug or alcohol use. She lives at home with her of 52 years. Past Drug Use History: None Reported - Past Family History Brother(s) Additional Family Medical History / Comment(s): Shunt has 1 brother and 1 sister but she does not have any contact with them. Patient has 3 children that are a ll healthy. Mother Family Medical History: Cancer Additional Family Medical History / Comment(s): . Father Family Medical History: Cancer Additional Family Medical History / Comment(s): . Medications and Allergies Home Medications Medication Instructions Recorded Confirmed Type Isosorbide Mononitrate ER [Imdur] 30 mg PO DAILY 04/06/15 05/24/21 History Metoprolol Tartrate [Lopressor] 50 mg PO BID 04/06/15 05/24/21 History Nitroglycerin Sl Tabs [Nitrostat] 0.4 mg SUBLINGUAL Q5M PRN 04/06/15 05/24/21 History Multivitamins, Thera [Multivitamin 1 tab PO DAILY 06/14/16 05/24/21 History (formulary)] Potassium Chloride [Klor-Con 20] 20 meq PO DAILY 07/24/18 05/24/21 History Aspirin [Children's Aspirin] 81 mg PO HS 01/21/19 05/24/21 History Bumetanide [BUMEX] 1 mg PO DAILY 01/21/19 05/24/21 History Folic Acid 1 mg PO DAILY 01/21/19 05/24/21 History metHOTREXate sodium [Methotrexate] 15 mg PO SAMANIEGO 01/21/19 05/24/21 History Docusate [Colace] 100 mg PO DAILY 05/24/21 05/24/21 History Ergocalciferol [Vitamin D2 (1250 1,250 mcg PO SAMANIEGO 05/24/21 05/24/21 History Mcg = [id number] Iu)] Fluticasone Nasal Depauw [Flonase 1 spray EA NOSTRIL DAILY 05/24/21 05/24/21 History Nasal Depauw] HYDROcodone/APAP 10-325MG [[place] 0.5 tab PO PC-LUNCH 05/24/21 05/24/21 History 10-325] Pregabalin [Lyrica] 100 mg PO BID@1400,2100 05/24/21 05/24/21 History Allergies Allergy/AdvReac Type Severity Reaction Status Date / Time amlodipine [From Norvasc] Allergy Unknown Verified 05/24/21 09:57 diazepam [From Valium] Allergy hard time Verified 05/24/21 09:57 coming out of anesthesia amoxicillin trihydrate AdvReac Severe Nausea & Verified 05/24/21 09:57 [From Augmentin] Vomiting & Diarrhea potassium clavulanate AdvReac Severe Nausea & Verified 05/24/21 09:57 [From Augmentin] Vomiting & Diarrhea sulfamethoxazole AdvReac Severe affected Verified 05/24/21 09:57 [From Bactrim] muscles - couldn't move trimethoprim [From Bactrim] AdvReac Severe affected Verified 05/24/21 09:57 muscles - couldn't move [id number] Reductase AdvReac leg cramps Verified 05/24/21 09:57 Inhibitor xanax AdvReac Unknown Uncoded 08/29/20 15:34 Physical Exam Vitals: Vital Signs Temp Pulse Resp BP BP BP BP 05/25/21 07:27 05/25/21 06:50 100.5 F H 87 18 153/78 05/25/21 02:00 99.1 F 80 16 180/83 05/24/21 19:46 99.5 F 79 18 159/88 05/24/21 19:34 79 18 05/24/21 16:30 159/71 05/24/21 16:25 175/74 05/24/21 16:20 153/76 05/24/21 14:34 98.8 F 91 18 183/84 Pulse Ox 05/25/21 07:27 95 05/25/21 06:50 94 L 05/25/21 02:00 97 05/24/21 19:46 95 05/24/21 19:34 05/24/21 16:30 05/24/21 16:25 05/24/21 16:20 05/24/21 14:34 94 L Intake and Output 05/24/21 05/25/21 05/25/21 22:59 06:59 14:59 Other: Voiding Method Toilet # Voids 2 1 The patient appeared well nourished and normally developed. Vital signs as documented. She is currently on 2 L of oxygen by nasal cannula. Breathing is nonlabored. Head exam is unremarkable. No scleral icterus or corneal arcus noted. Neck is without jugular venous distension, thyromegaly, or carotid bruits. Carotid upstrokes are brisk bilaterally. Lungs are clear to auscultation and percussion. Breath sounds are diminished in lung bases bilaterally. She rhonchi and lung bases bilaterally. Cardiac exam reveals the PMI to be normally sized and situated. Rhythm is regular. First and second heart sounds normal. No murmurs, rubs or gallops. Abdominal exam reveals normal bowel sounds, no masses, no organomegaly and no aortic enlargement. Extremities are nonedematous and both femoral and pedal pulses are normal.Examination of the skin revealed no evidence of significant rashes, suspicious appearing nevi or other concerning lesions.Neurologically, the patient is awake and alert and the patient does not have any focal neurological deficit. Cranial nerves are essentially intact. Results - Laboratory Findings CBC and BMP: 05/24/21 00:52 05/25/21 06:53 PT/INR, D-dimer PT 11.1 sec (9.0-12.0) 05/24/21 00:52 INR 1.0 (<1.2) 05/24/21 00:52 Abnormal lab findings: Abnormal Labs 05/24/21 05/24/21 05/24/21 00:52 00:52 00:52 WBC 14.7 H RDW 15.7 H Plt Count 139 L Neutrophils # 12.8 H Chloride BUN 22 H Creatinine 1.09 H Glucose 151 H POC Glucose (mg/dL) Plasma Lactic Acid See AST 56 H ALT 39 H Lactate Dehydrogenase 969 H Creatine Kinase 414 H CK-MB (CK-2) Troponin I C-Reactive Protein 4.5 H Albumin Urine Protein 3+ H Urine Ketones 1+ H Urine Blood Moderate H Ur Leukocyte Esterase Moderate H Urine WBC 17 H Urine Bacteria Rare H 05/24/21 05/24/21 05/24/21 00:52 00:52 04:14 WBC RDW Plt Count Neutrophils # Chloride BUN Creatinine Glucose POC Glucose (mg/dL) Plasma Lactic Acid See 2.2 H* AST ALT Lactate Dehydrogenase Creatine Kinase CK-MB (CK-2) 4.0 H Troponin I 0.093 H* 0.133 H* C-Reactive Protein Albumin Urine Protein Urine Ketones Urine Blood Ur Leukocyte Esterase Urine WBC Urine Bacteria 05/24/21 05/24/21 05/24/21 04:14 07:15 07:15 WBC RDW Plt Count Neutrophils # Chloride BUN Creatinine Glucose POC Glucose (mg/dL) Plasma Lactic Acid See 3.5 H* AST ALT Lactate Dehydrogenase Creatine Kinase 577 H CK-MB (CK-2) Troponin I 0.120 H* C-Reactive Protein Albumin Urine Protein Urine Ketones Urine Blood Ur Leukocyte Esterase Urine WBC Urine Bacteria 05/24/21 05/24/21 05/24/21 08:28 12:02 16:22 WBC RDW Plt Count Neutrophils # Chloride BUN Creatinine Glucose POC Glucose (mg/dL) 101 H 136 H Plasma Lactic Acid See 2.1 H* AST ALT Lactate Dehydrogenase Creatine Kinase CK-MB (CK-2) Troponin I C-Reactive Protein Albumin Urine Protein Urine Ketones Urine Blood Ur Leukocyte Esterase Urine WBC Urine Bacteria 05/24/21 05/25/21 20:34 06:53 WBC RDW Plt Count Neutrophils # Chloride 108 H BUN 20 H Creatinine 1.12 H Glucose 108 H POC Glucose (mg/dL) 107 H Plasma Lactic Acid See AST 43 H ALT Lactate Dehydrogenase Creatine Kinase 389 H CK-MB (CK-2) Troponin I C-Reactive Protein Albumin 3.4 L Urine Protein Urine Ketones Urine Blood Ur Leukocyte Esterase Urine WBC Urine Bacteria - Diagnostic Findings Chest x-ray: image reviewed Assessment and Plan Plan: 1 questionable right lower lobe pneumonia currently under investigation. The patient increased cough and congestion. Some mild hypoxemia on 2 L of oxygen by nasal cannula. White cell count slightly elevated. She had a low-grade fever. No other obvious source of infection at this point in time. 2 obesity with a BMI of 34.4 3 coronary artery disease with previous bypass surgery 4 hyperlipidemia 5 hypertension 6 falls with generalized weakness and mild rhabdomyolysis with elevation of the CPK 7 rheumatoid arthritis mental and methotrexate on outpatient basis. 8 hyperglycemia, under investigation for underlying diabetes mellitus 9 troponin leak 10 mild lactic acidosis Plan Check pro-calcitonin level Sputum Gram stain and culture if possible Repeat chest x-ray in the morning Agree on the current antibiotic coverage Hold methotrexate Cardiology consultation Re: Troponin leaks Titrate oxygen flow to maintain a saturation above 90% We'll follow.
[2021-05-25 11:16] LABS: Glucose,Whole Blood 108 mg/dL (75-99)
[2021-05-25 11:24] LABS: Basophils # (A) 0.06 X 10*3/uL (0.00-0.10); Basophils % (A) 0.6 %; Eosinophils # (A) 0.32 X 10*3/uL (0.04-0.35); Eosinophils % (A) 3.3 %; HCT 36.1 % (37.2-46.3); HGB 12.2 g/dL (12.0-15.0); Lymphocytes # (A) 1.53 X 10*3/uL (0.90-5.00); Lymphocytes % (A) 15.6 %; MCHC 33.8 g/dL (32.0-37.0); MCV 91.6 fL (80.0-97.0); Mean Platelet Volume 13.1 fL (9.5-12.2); Monocytes # (A) 0.66 X 10*3/uL (0.20-1.00); Monocytes % (A) 6.7 %; Neutrophils # (A) 7.16 X 10*3/uL (1.80-7.70); Neutrophils % (A) 73.3 %; Platelet Count 92 X 10*3/uL (140-440); RBC 3.94 X 10*6/uL (4.10-5.20); WBC 9.78 X 10*3/uL (4.50-10.00)
--- NOTE | 2021-05-25 12:24 | CT ---
EXAMINATION TYPE: CT angio chest DATE OF EXAM: 05/25/2021 12:13 PM COMPARISON: CTA chest October 30, 2013 HISTORY: Shortness of breath, cough, elevated d-dimer CT DLP: 4869.5 mGycm Automated exposure control for dose reduction was used. CONTRAST: CTA scan of the thorax is performed with IV Contrast, patient injected with 74 mL of Isovue 370, pulm onary embolism protocol. MIP images are created and reviewed. FINDINGS: LUNGS: Motion artifact degradation makes evaluation suboptimal particularly for subcentimeter nodules . There is persistent and stable 8 x 6 mm anterior right mid lung nodule axial image 53 noted unchang ed from prior study axial image 43. No pneumothorax seen bilaterally. Tiny bilateral pleural effusion s with associated compressive atelectasis. MEDIASTINUM: There is satisfactory enhancement of the pulmonary artery and its branches, there is no CT evidence for pulmonary embolism. There are no greater than 1 cm hilar or mediastinal lymph nodes. No pericardial effusion is seen. Cardiomegaly is present. Post-CABG changes with mediastinal clips and sternal wires is again seen. Satisfactory enhancement of the aorta without aneurysm or dissectio n. Moderate mixed plaque in the aortic arch redemonstrated. OTHER: Exaggerated thoracic kyphosis. Cholecystectomy clips right upper quadrant on the localizer. R ight-sided surgical change lower lumbar spine noted on localizer. IMPRESSION: No CT evidence for acute pulmonary embolism. Cardiomegaly with tiny bilateral pleural eff usions. Correlate for CHF exacerbation. No suspicious focal infiltrate.
[2021-05-25] MEDS: HYDROcodone/APAP 10-325MG 1 EACH TAB PO SCH (13:20)
[2021-05-25] MEDS: PREGABALIN 100 MG CAP PO SCH ×2 (13:27→20:30)
--- NOTE | 2021-05-25 13:35 | P.PN ---
Subjective Progress Note Date: 05/25/21 HISTORY OF PRESENT ILLNESS This is a 76-year-old female patient of Dr. Russ and Dr. Kathy Ledesma with past medical history of coronary artery disease status post triple-vessel CABG in 2007, hyperlipidemia, hypertension, COPD, rheumatoid arthritis, osteoarthritis, chronic low back pain, urinary incontinence. Patient states that she is feeling very tired and weak and had 2 falls yesterday where her legs gave out on her and she slid on the gravel. She denies using her cane yesterday during the falls. She has had a cough for 1 week. She is not sure if she had fever at home. She did not seek treatment prior. She is complaining of right rib pain after the fall. Patient came into [facility] emergency center for evaluation and found to have a temperature of 100.8, heart rate 51, blood pressure 154/86, pulse ox 95% on room air. EKG is sinus rhythm. WBC 14.7, hemoglobin 13.8, platelet count 139. Electrolytes normal. BUN 22 and creatinine 1.09. Blood sugar 151. Total bilirubin 1.2, AST 56, ALT 39, alkaline phosphatase 105. LDH 969, CK 414, C-reactive protein 4.5, albumin 4.1. Lactic acid 2.2. Urinalysis clear, blood moderate, leukoesterase moderate, urine WBC 17. Escalona virus PCR not detected. Troponins 0.093, 0.133, 0.120. ProBNP 2450. Chest x-ray reveals new minimal interstitial infiltrate at the right lung base. No heart failure. Lumbar spine x-ray reveals previous surgery. Old L5 compression fracture. No acute fracture. Bilateral knee x-rays revealed no acute abnormality. Patient was started on azithromycin, ceftriaxone, blood cultures were obtained and patient admitted to the [facility] floor. 05/25: Patient is having more shortness of breath today, d-dimer was elevated at 3.35 and patient underwent subsequent CTA of the chest which revealed no evidence of acute coronary embolism. Cardiomegaly with tiny bilateral pleural effusions. Correlate for heart failure exacerbation. No suspicious focal infiltrate. She has been seen by pulmonary medicine and pneumonia is questionable. Pro-calcitonin level was ordered and repeat chest x-ray in the morning, continued to need antibiotics and hold methotrexate. Rib x-rays done yesterday revealed no displaced rib fracture. Consult was added this morning for cardiology due to elevated troponin and they have signed off patient's case, and acute coronary syndrome has been ruled out. Patient to follow-up with Dr. Martinez as an outpatient. Echocardiogram reveals EF of 60-65% with mild concentric left hypertrophy, mild aortic valve sclerosis, mild aortic regurgitation, mild mitral annular calcification. Repeat blood work reveals WBC 9.7, hemoglobin 12.2 and platelet count 92. Electrolytes unremarkable, BUN 20 creatinine 1.12. Blood sugars up and running between 98 and 108. CK is improved at 389. IV fluids decreased to 50 mL per hour. Urine culture was finalized with skin genital isiah. Sputum culture has not been obtained. Physical therapy has recommended home with homecare or subacute rehab. REVIEW OF SYSTEMS Constitutional: Noted fever, no chills, no night sweats. No weight change. Reported weakness, Reported fatigue no lethargy. No daytime sleepiness. EENT: No headache. No blurred vision or double vision, no loss of vision. No loss of Hearing, no ringing in the ears, no dizziness. No nasal drainage or congestion. No epistaxis. No sore throat. Lungs: No shortness of breath, reports cough, reports sputum production. No wheezing. Cardiovascular: No chest pain, no lower extremity edema. No palpitations. No paroxysmal nocturnal dyspnea. No orthopnea. No lightheadedness or dizziness. No syncopal episodes. Abdominal: No abdominal pain. No nausea, vomiting. No diarrhea. No constipation. No bloody or tarry stools.. No loss of appetite. Genitourinary: No dysuria, increased frequency, urgency. No urinary retention. Musculoskeletal: No myalgias. Reported muscle weakness, Reported gait dysfunction, Reported frequent falls. Chronic back pain. No neck pain. Reports right rib pain. Integumentary: No wounds, no lesions. No rash or pruritus. No unusual bruising. No change in hair or nails. Neurologic: No aphasia. No facial droop. No change in mentation. No head injury. No headache. No paralysis. No paresthesia. Psychiatric: No depression. No anxiety. No mood swings. Endocrine: Noted abnormal blood sugar. . PHYSICAL EXAMINATION Gen: This is an obese 76-year-old female. HEENT: Head is atraumatic, normocephalic. Pupils equal, round. Sclerae is anict hiwot. NECK: Supple. No JVD. No lymphadenopathy. No thyromegaly. LUNGS: Diminished. No intercostal retractions. No accessory muscle usage. HEART: Regular rate and rhythm. No murmur. ABDOMEN: Soft. Bowel sounds are present. No masses. No tenderness. EXTREMITIES: No pedal edema. No calf tenderness. NEUROLOGICAL: Patient is awake, alert and oriented x3. Cranial nerves 2 through 12 are grossly intact. ASSESSMENT AND PLAN 1. Sepsis secondary to possible acute right-sided pneumonia, possible gram- negative pneumonia and urinary tract infection ruled out. Patient started on azithromycin and ceftriaxone, DuoNeb treatments 3 times daily and as needed. Obtained and monitor blood and sputum cultures. Legionella, pro-calcitonin. 2. Rhabdomyolysis. Repeat CK tomorrow, continue IV fluids at 50 mL per hour. 3. Lactic acidosis secondary to sepsis. Continue protocol, continue IV fluids at 50 mL per hour. 4. Elevated troponins. Cardiology consult appreciated. Acute coronary syndrome ruled out. Echocardiogram as above. 5. Hyperglycemia without history of diabetes. Patient will place on NovoLog scale, obtain A1c. 6. Falls secondary to sepsis, generalized weakness. PT and OT. Anticipate need for subacute rehab. 7. Hypertension. Continue Imdur 30 mg daily, Lopressor 50 mg twice daily, Bumex will be resumed tomorrow and IV fluids discontinued if CPK is improving. 8. History of coronary artery disease status post triple-vessel CABG in [address] Ferraro. Continue Imdur 30 mg daily, Lopressor 50 mg twice daily, aspirin 81 mg daily. 9. Hyperlipidemia. Patient not currently on statins due to leg cramps. 10. Rheumatoid arthritis. Hold methotrexate for now. 11. Chronic back pain and peripheral neuropathy. Continue Lyrica 100 mg twice daily. 12. GI prophylaxis. Protonix. 13. DVT prophylaxis. Heparin subcu. 14. COVID-19 testing negative. DISCHARGE PLAN To be determined. PT and OT recommended home with homecare or subacute rehab. Impression and plan of care have been directed as dictated by the signing physician. Betzy Lyman nurse practitioner acting as scribe for signing physician. Objective - Vital Signs Vital signs: Vital Signs Temp 100.5 F H 05/25/21 06:50 Pulse 87 05/25/21 06:50 Resp 18 05/25/21 06:50 BP 153/78 05/25/21 06:50 Pulse Ox 95 05/25/21 07:27 Intake & Output 05/24/21 05/25/21 05/25/21 18:59 06:59 18:59 Other: Voiding Method Toilet # Voids 2 1 - Labs CBC & Chem 7: 05/25/21 06:53 05/25/21 06:53 Labs: Abnormal Lab Results - Last 24 Hours (Table) 05/24/21 05/24/21 05/24/21 Range/Units 07:15 07:15 08:28 Chloride (98-107) mmol/L BUN (7-17) mg/dL Creatinine (0.52-1.04) mg/dL Glucose (74-99) mg/dL POC Glucose (mg/dL) (75-99) mg/dL Plasma Lactic Acid See 2.1 H* (0.7-2.0) mmol/L AST (14-36) U/L Creatine Kinase 577 H (30-135) U/L Troponin I 0.120 H* (0.000-0.034) ng/mL Albumin (3.5-5.0) g/dL 05/24/21 05/24/21 05/24/21 Range/Units 12:02 16:22 20:34 Chloride (98-107) mmol/L BUN (7-17) mg/dL Creatinine (0.52-1.04) mg/dL Glucose (74-99) mg/dL POC Glucose (mg/dL) 101 H 136 H 107 H (75-99) mg/dL Plasma Lactic Acid See (0.7-2.0) mmol/L AST (14-36) U/L Creatine Kinase (30-135) U/L Troponin I (0.000-0.034) ng/mL Albumin (3.5-5.0) g/dL 05/25/21 Range/Units 06:53 Chloride 108 H (98-107) mmol/L BUN 20 H (7-17) mg/dL Creatinine 1.12 H (0.52-1.04) mg/dL Glucose 108 H (74-99) mg/dL POC Glucose (mg/dL) (75-99) mg/dL Plasma Lactic Acid See (0.7-2.0) mmol/L AST 43 H (14-36) U/L Creatine Kinase 389 H (30-135) U/L Troponin I (0.000-0.034) ng/mL Albumin 3.4 L (3.5-5.0) g/dL Microbiology - Last 24 Hours (Table) 05/24/21 01:35 Blood Culture - Preliminary Blood No Growth after 24 hours 05/24/21 01:52 Blood Culture - Preliminary Blood No Growth after 24 hours 05/24/21 00:52 Urine Culture - Preliminary Urine,Voided
[2021-05-25 16:33] LABS: Glucose,Whole Blood 112 mg/dL (75-99)
[2021-05-25 20:22] LABS: Glucose,Whole Blood 120 mg/dL (75-99)
[2021-05-25] MEDS: ASPIRIN 81 MG PO SCH (20:31)
[2021-05-25] MEDS ORDERED: LOSARTAN 50 MG TAB PO STA (22:11)
[2021-05-25] MEDS ORDERED: hydrALAZINE HCL 25 MG TAB PO PRN (22:14)
[2021-05-26] MEDS: HEPARIN SODIUM,PORCINE/PF 5,000 UNIT/0.5 ML SYRINGE SQ SCH ×3 (01:29→15:19)
[2021-05-26] MEDS: AZITHROMYCIN 500 MG in SODIUM CHLORIDE 0.9% 250 ML IVPB SCH (06:34)
[2021-05-26] MEDS: SODIUM CHLORIDE 0.9% 1,000 ML IV SCH (06:35)
[2021-05-26 07:33] LABS: Glucose,Whole Blood 118 mg/dL (75-99)
[2021-05-26] MEDS: ALBUTEROL HFA INHALER INHALATION SCH ×3 (08:16→20:09)
[2021-05-26] MEDS: INSULIN ASPART (NovoLOG) 100 UNIT/ML VIAL SQ SCH (08:20)
[2021-05-26] MEDS: PANTOPRAZOLE 40 MG TABLET PO SCH (08:35)
[2021-05-26] MEDS: LOSARTAN 50 MG TAB PO SCH (08:35)
[2021-05-26] MEDS: MULTIVITAMINS, THERA 1 EACH TAB PO SCH (08:35)
[2021-05-26] MEDS: POTASSIUM CHLORIDE ER 20 MEQ TAB.ER PO SCH (08:35)
[2021-05-26] MEDS: METOPROLOL TARTRATE 50 MG TAB PO SCH ×2 (08:35→20:37)
[2021-05-26] MEDS: DOCUSATE 100 MG CAP PO SCH (08:35)
[2021-05-26] MEDS: FOLIC ACID 1 MG TAB PO SCH (08:35)
[2021-05-26] MEDS: guaiFENesin 600 MG TABLET.ER PO SCH ×2 (08:35→20:37)
[2021-05-26] MEDS: ISOSORBIDE MONONITRATE ER 30 MG TAB.ER.24H PO SCH (08:35)
[2021-05-26] MEDS: FLUTICASONE 50MCG/SPRAY NASAL 16GM EA NOSTRIL SCH (08:38)
[2021-05-26 08:55] LABS: ALT 28 U/L (4-34); AST 37 U/L (14-36); African American GFR (CKD) 58 (>60 ml/min/1.73 sqM); Albumin 3.3 g/dL (3.5-5.0); Albumin/Globulin Ratio 1.1; Alkaline Phosphatase 79 U/L (38-126); Anion Gap 8 mmol/L; Blood Urea Nitrogen 16 mg/dL (7-17); Calcium 9.3 mg/dL (8.4-10.2); Carbon Dioxide 21 mmol/L (22-30); Chloride 109 mmol/L (98-107); Creatine Kinase 304 U/L (30-135); Globulin 3.1 g/dL; Glucose 122 mg/dL (74-99); Non-African American GFR(CKD) 50 (>60 ml/min/1.73 sqM); Potassium 4.5 mmol/L (3.5-5.1); Sodium 138 mmol/L (137-145); Total Bilirubin 0.6 mg/dL (0.2-1.3); Total Protein 6.4 g/dL (6.3-8.2)
--- NOTE | 2021-05-26 11:40 | P.PN ---
Subjective Progress Note Date: 05/26/21 HISTORY OF PRESENT ILLNESS This is a 76-year-old female patient of Dr. Russ and Dr. Kathy Ledesma with past medical history of coronary artery disease status post triple-vessel CABG in 2007, hyperlipidemia, hypertension, COPD, rheumatoid arthritis, osteoarthritis, chronic low back pain, urinary incontinence. Patient states that she is feeling very tired and weak and had 2 falls yesterday where her legs gave out on her and she slid on the gravel. She denies using her cane yesterday during the falls. She has had a cough for 1 week. She is not sure if she had fever at home. She did not seek treatment prior. She is complaining of right rib pain after the fall. Patient came into [facility] emergency center for evaluation and found to have a temperature of 100.8, heart rate 51, blood pressure 154/86, pulse ox 95% on room air. EKG is sinus rhythm. WBC 14.7, hemoglobin 13.8, platelet count 139. Electrolytes normal. BUN 22 and creatinine 1.09. Blood sugar 151. Total bilirubin 1.2, AST 56, ALT 39, alkaline phosphatase 105. LDH 969, CK 414, C-reactive protein 4.5, albumin 4.1. Lactic acid 2.2. Urinalysis clear, blood moderate, leukoesterase moderate, urine WBC 17. Escalona virus PCR not detected. Troponins 0.093, 0.133, 0.120. ProBNP 2450. Chest x-ray reveals new minimal interstitial infiltrate at the right lung base. No heart failure. Lumbar spine x-ray reveals previous surgery. Old L5 compression fracture. No acute fracture. Bilateral knee x-rays revealed no acute abnormality. Patient was started on azithromycin, ceftriaxone, blood cultures were obtained and patient admitted to the [facility] floor. 05/25: Patient is having more shortness of breath today, d-dimer was elevated at 3.35 and patient underwent subsequent CTA of the chest which revealed no evidence of acute coronary embolism. Cardiomegaly with tiny bilateral pleural effusions. Correlate for heart failure exacerbation. No suspicious focal infiltrate. She has been seen by pulmonary medicine and pneumonia is questionable. Pro-calcitonin level was ordered and repeat chest x-ray in the morning, continued to need antibiotics and hold methotrexate. Rib x-rays done yesterday revealed no displaced rib fracture. Consult was added this morning for cardiology due to elevated troponin and they have signed off patient's case, and acute coronary syndrome has been ruled out. Patient to follow-up with Dr. Martinez as an outpatient. Echocardiogram reveals EF of 60-65% with mild concentric left hypertrophy, mild aortic valve sclerosis, mild aortic regurgitation, mild mitral annular calcification. Repeat blood work reveals WBC 9.7, hemoglobin 12.2 and platelet count 92. Electrolytes unremarkable, BUN 20 creatinine 1.12. Blood sugars up and running between 98 and 108. CK is improved at 389. IV fluids decreased to 50 mL per hour. Urine culture was finalized with skin genital isiah. Sputum culture has not been obtained. Physical therapy has recommended home with homecare or subacute rehab. 05/26: Patient continues to have shortness of breath congested cough. One dose of IV Lasix 40 mg ordered. Patient had elevated blood pressures during the night and she was started on losartan 50 mg daily and hydralazine as needed. Patient is continued on azithromycin and Rocephin. Sputum culture remains on collected. She has been afebrile for the past 24 hours. Blood pressure this morning 181/63, heart rate 89, pulse ox 92% on 2 L. Repeat blood work reveals CO2 21, BUN 16 creatinine 1.08. Capillary blood glucose running between 118 and 122. Pro-calcitonin 0.31. Legionella not detected. A1c 5.7 Humalog scale will be discontinued CK is at 304 and we will discontinue IV fluids. REVIEW OF SYSTEMS Constitutional: Noted fever, no chills, no night sweats. No weight change. Reported weakness, Reported fatigue no lethargy. No daytime sleepiness. EENT: No headache. No blurred vision or double vision, no loss of vision. No loss of Hearing, no ringing in the ears, no dizziness. No nasal drainage or congestion. No epistaxis. No sore throat. Lungs: Reports shortness of breath, reports cough, reports sputum production. Reports wheezing. Cardiovascular: No chest pain, no lower extremity edema. No palpitations. No paroxysmal nocturnal dyspnea. No orthopnea. No lightheadedness or dizziness. No syncopal episodes. Abdominal: No abdominal pain. No nausea, vomiting. No diarrhea. No constipation. No bloody or tarry stools.. No loss of appetite. Genitourinary: No dysuria, increased frequency, urgency. No urinary retention. Musculoskeletal: No myalgias. Reported muscle weakness, Reported gait dysfunction, Reported frequent falls. Chronic back pain. No neck pain. Reports right rib pain. Integumentary: No wounds, no lesions. No rash or pruritus. No unusual bruising. No change in hair or nails. Neurologic: No aphasia. No facial droop. No change in mentation. No head injury. No headache. No paralysis. No paresthesia. Psychiatric: No depression. No anxiety. No mood swings. Endocrine: Noted abnormal blood sugar. PHYSICAL EXAMINATION Gen: This is an obese 76-year-old female. Patient is resting in bed and appears to be short of breath with movement in bed. She continues to have cough HEENT: Head is atraumatic, normocephalic. Pupils equal, round. Sclerae is anicteric. NECK: Supple. No JVD. No lymphadenopathy. No thyromegaly. LUNGS: Scattered rhonchi and expiratory wheeze. Mild accessory muscle usage. HEART: Regular rate and rhythm. No murmur. ABDOMEN: Soft. Bowel sounds are present. No masses. No tenderness. EXTREMITIES: No pedal edema. No calf tenderness. NEUROLOGICAL: Patient is awake, alert and oriented x3. Cranial nerves 2 through 12 are grossly intact. ASSESSMENT AND PLAN 1. Sepsis secondary to possible acute right-sided pneumonia, possible gram- negative pneumonia and urinary tract infection ruled out. Patient started on azithromycin and ceftriaxone, DuoNeb treatments 3 times daily and as needed. Obtained and monitor blood and sputum cultures. 2. Rhabdomyolysis. Discontinue IV fluids. One dose of IV Lasix. 3. Lactic acidosis secondary to sepsis. Continue protocol, discontinue IV fluids. 4. Elevated troponins. Cardiology consult appreciated. Acute coronary syndrome ruled out. Echocardiogram as above. 5. Hyperglycemia without history of diabetes. A1c 5.7 and Humalog scale discontinued. 6. Falls secondary to sepsis, generalized weakness. PT and OT. Anticipate need for subacute rehab. 7. Hypertension. Continue Imdur 30 mg daily, Lopressor 50 mg twice daily, Bumex will be resumed tomorrow and IV fluids discontinued if CPK is improving. 8. History of coronary artery disease status post triple-vessel CABG in [address] Ferraro. Continue Imdur 30 mg daily, Lopressor 50 mg twice daily, aspirin 81 mg daily. 9. Hyperlipidemia. Patient not currently on statins due to leg cramps. 10. Rheumatoid arthritis. Hold methotrexate for now. 11. Chronic back pain and peripheral neuropathy. Continue Lyrica 100 mg twice daily. 12. GI prophylaxis. Protonix. 13. DVT prophylaxis. Heparin subcu. 14. COVID-19 testing negative. DISCHARGE PLAN To be determined. PT and OT recommended home with homecare or subacute rehab. Social work is following. Impression and plan of care have been directed as dictated by the signing physician. Betzy Lyman nurse practitioner acting as scribe for signing physician. Objective - Vital Signs Vital signs: Vital Signs Temp 99.3 F 05/26/21 08:00 Pulse 89 05/26/21 08:00 Resp 20 05/26/21 08:00 BP 181/63 05/26/21 08:00 Pulse Ox 92 L 05/26/21 08:00 Intake & Output 05/25/21 05/26/21 05/26/21 18:59 06:59 18:59 Other: Voiding Method Bedside Commode # Voids 2 2 - Labs CBC & Chem 7: 05/25/21 06:53 05/26/21 08:10 Labs: Abnormal Lab Results - Last 24 Hours (Table) 05/25/21 05/25/21 05/25/21 Range/Units 06:53 16:30 20:21 Chloride (98-107) mmol/L Carbon Dioxide (22-30) mmol/L Creatinine (0.52-1.04) mg/dL Glucose (74-99) mg/dL POC Glucose (mg/dL) 112 H 120 H (75-99) mg/dL AST (14-36) U/L Creatine Kinase (30-135) U/L Albumin (3.5-5.0) g/dL Procalcitonin 0.31 H (0.02-0.09) ng/mL 05/26/21 05/26/21 Range/Units 07:31 08:10 Chloride 109 H (98-107) mmol/L Carbon Dioxide 21 L (22-30) mmol/L Creatinine 1.08 H (0.52-1.04) mg/dL Glucose 122 H (74-99) mg/dL POC Glucose (mg/dL) 118 H (75-99) mg/dL AST 37 H (14-36) U/L Creatine Kinase 304 H (30-135) U/L Albumin 3.3 L (3.5-5.0) g/dL Procalcitonin (0.02-0.09) ng/mL Microbiology - Last 24 Hours (Table) 05/24/21 01:52 Blood Culture - Preliminary Blood No Growth after 48 hours 05/24/21 01:35 Blood Culture - Preliminary Blood No Growth after 48 hours 05/24/21 00:52 Urine Culture - Final Urine,Voided
--- NOTE | 2021-05-26 12:13 | P.PN ---
Subjective Progress Note Date: 05/26/21 -76 year-old female patient was hospitalized for generalized weakness and falls. She is currently under investigation for underlying infection/sepsis.. She has some congested cough. No worsening shortness of breath. She is on oxygen 2 L in the pulse ox is ranging between 95-97%. No pleurisy. No hemoptysis. No chest pain. No swelling lower extremities. No dysuria frequency urgency. She had a diarrhea approximately 2 weeks ago did recover. No altered mentation. No headaches. Her CPK slightly elevated and the patient was having some falls. There is also some minimal troponin leak. She has been vaccinated for COVID-19 and her COVID-19 testing was negative. Troponins were 0.09 0.13 and 0.12 and the proBNP level was 2450. Chest x-ray shows no acute consolidation. Questionable interstitial changes in the right lung base. X-ray of the lumbar spine showed an old compression fracture of the L5 spine. Bilateral knee x-ray showed degenerative arthritis. Her sugar is 151. Bilirubin is at 1.2. LFTs are slightly abnormal with an AST of 56 ALT of 39. Alkaline phosphatase of 105. LDH is 969. CRP is at 4.5. Lactic acid level was 2.2 and urinalysis was essentially negative. Currently on accommodation Rocephin and Zithromax. The patient is seen today 05/26/2021 in follow-up on the regular medical floor. She is currently resting fairly comfortably in bed. She still has a loose nonproductive cough. She did have a T-max yesterday 100.5. Currently 99.3. Maintaining O2 saturations in the low 90s on 2 L per nasal cannula. Sodium 130. Potassium 4.5. Creatinine 1.08. Glucose 122. She remains on ceftriaxone and azithromycin. Continue bronchodilators. CT angiogram ruled out pulmonary embolism. Some basilar effusions. Procalcitonin level 0.31. Objective - Vital Signs Vital signs: Vital Signs Temp 99.3 F 05/26/21 08:00 Pulse 89 05/26/21 08:00 Resp 20 05/26/21 08:00 BP 181/63 05/26/21 08:00 Pulse Ox 92 L 05/26/21 08:00 Intake & Output 05/25/21 05/26/21 05/26/21 18:59 06:59 18:59 Other: Voiding Method Bedside Commode # Voids 2 2 - Exam The patient is a pleasant 76-year-old female patient appears well nourished and normally developed. Vital signs as documented. She is currently on 2 L of oxygen by nasal cannula. Breathing is nonlabored. Head exam is unremarkable. No scleral icterus or corneal arcus noted. Neck is without jugular venous distension, thyromegaly, or carotid bruits. Carotid upstrokes are brisk bilaterally. Breath sounds are diminished in lung bases bilaterally. She has rhonchi at the lung bases bilaterally. Cardiac exam reveals the PMI to be normally sized and situated. Rhythm is regular. First and second heart sounds normal. No murmurs, rubs or gallops. Abdominal exam reveals normal bowel sounds, no masses, no organomegaly and no aortic enlargement. Extremities are nonedematous and both femoral and pedal pulses are normal.Examination of the skin revealed no evidence of significant rashes, suspicious appearing nevi or other concerning lesions.Neurologically, the patient is awake and alert and the patient does not have any focal neurological deficit. Cranial nerves are essentially intact. - Labs CBC & Chem 7: 05/25/21 06:53 05/26/21 08:10 Labs: Abnormal Lab Results - Last 24 Hours (Table) 05/25/21 05/25/21 05/25/21 Range/Units 06:53 16:30 20:21 Chloride (98-107) mmol/L Carbon Dioxide (22-30) mmol/L Creatinine (0.52-1.04) mg/dL Glucose (74-99) mg/dL POC Glucose (mg/dL) 112 H 120 H (75-99) mg/dL AST (14-36) U/L Creatine Kinase (30-135) U/L Albumin (3.5-5.0) g/dL Procalcitonin 0.31 H (0.02-0.09) ng/mL 05/26/21 05/26/21 Range/Units 07:31 08:10 Chloride 109 H (98-107) mmol/L Carbon Dioxide 21 L (22-30) mmol/L Creatinine 1.08 H (0.52-1.04) mg/dL Glucose 122 H (74-99) mg/dL POC Glucose (mg/dL) 118 H (75-99) mg/dL AST 37 H (14-36) U/L Creatine Kinase 304 H (30-135) U/L Albumin 3.3 L (3.5-5.0) g/dL Procalcitonin (0.02-0.09) ng/mL Microbiology - Last 24 Hours (Table) 05/24/21 01:52 Blood Culture - Preliminary Blood No Growth after 48 hours 05/24/21 01:35 Blood Culture - Preliminary Blood No Growth after 48 hours 05/24/21 00:52 Urine Culture - Final Urine,Voided Assessment and Plan Assessment: 1 questionable right lower lobe pneumonia currently under investigation. The patient increased cough and congestion. Some mild hypoxemia on 2 L of oxygen by nasal cannula. White cell count slightly elevated. She had a low-grade fever. No other obvious source of infection at this point in time. 2 obesity with a BMI of 34.4 3 coronary artery disease with previous bypass surgery 4 hyperlipidemia 5 hypertension 6 falls with generalized weakness and mild rhabdomyolysis with elevation of the CPK 7 rheumatoid arthritis mental and methotrexate on outpatient basis. 8 hyperglycemia, under investigation for underlying diabetes mellitus 9 troponin leak 10 mild lactic acidosis Plan The patient was seen and evaluated by Dr. Delgado CT angiogram ruled out PE. Small bilateral effusions. Procalcitonin level 0.31 Continue current treatment plan Increase her activity as tolerate Titrate down the FiO2 as tolerated We will continue to follow I, the cosigning physician, performed a history & physical examination of the patient. Lungs sounds bilateral scattered rhonchi. Maintaining good O2 saturations in the 90s on 2 L/m per nasal cannula. I discussed the assessment and plan of care with my nurse practitioner, Awilda Youngblood. I attest to the above note as dictated by her.
[2021-05-26] MEDS ORDERED: FUROSEMIDE 10 MG/ML 4 ML VIAL IV STA (12:17)
[2021-05-26] MEDS: methylPREDNISolone SOD SUCCI 125 MG/2 ML VIAL IV SCH ×2 (12:40→17:30)
[2021-05-26 13:35] LABS: HCT 33.8 % (37.2-46.3); HGB 11.1 g/dL (12.0-15.0); MCH 30.4 pg (27.0-32.0); MCHC 32.8 g/dL (32.0-37.0); MCV 92.6 fL (80.0-97.0); Mean Platelet Volume 13.6 fL (9.5-12.2); Platelet Count 96 X 10*3/uL (140-440); RBC 3.65 X 10*6/uL (4.10-5.20); RDW 15.1 % (11.5-14.5)
[2021-05-26] MEDS ORDERED: ALBUTEROL HFA INHALER INHALATION ONE (13:36)
[2021-05-26] MEDS: MORPHINE SULFATE 4 MG/ML SYRINGE IV PRN ×2 (13:53→20:37)
[2021-05-26] MEDS: PREGABALIN 100 MG CAP PO SCH ×2 (15:19→20:37)
[2021-05-26] MEDS: HYDROcodone/APAP 10-325MG 1 EACH TAB PO SCH (15:19)
[2021-05-26] MEDS: ASPIRIN 81 MG PO SCH (20:37)
[2021-05-27] MEDS: methylPREDNISolone SOD SUCCI 125 MG/2 ML VIAL IV SCH ×4 (00:12→17:16)
[2021-05-27] MEDS: MORPHINE SULFATE 4 MG/ML SYRINGE IV PRN ×2 (00:13→20:01)
[2021-05-27] MEDS: HEPARIN SODIUM,PORCINE/PF 5,000 UNIT/0.5 ML SYRINGE SQ SCH ×3 (00:13→15:15)
[2021-05-27] MEDS: AZITHROMYCIN 500 MG in SODIUM CHLORIDE 0.9% 250 ML IVPB SCH (06:10)
[2021-05-27] MEDS: METOPROLOL TARTRATE 50 MG TAB PO SCH ×2 (08:01→20:01)
[2021-05-27] MEDS: PANTOPRAZOLE 40 MG TABLET PO SCH (08:01)
[2021-05-27] MEDS: FOLIC ACID 1 MG TAB PO SCH (08:01)
[2021-05-27] MEDS: MULTIVITAMINS, THERA 1 EACH TAB PO SCH (08:01)
[2021-05-27] MEDS: DOCUSATE 100 MG CAP PO SCH (08:01)
[2021-05-27] MEDS: ISOSORBIDE MONONITRATE ER 30 MG TAB.ER.24H PO SCH (08:01)
[2021-05-27] MEDS: LOSARTAN 50 MG TAB PO SCH (08:01)
[2021-05-27] MEDS: guaiFENesin 600 MG TABLET.ER PO SCH ×2 (08:01→20:01)
[2021-05-27] MEDS: POTASSIUM CHLORIDE ER 20 MEQ TAB.ER PO SCH (08:01)
[2021-05-27] MEDS: FLUTICASONE 50MCG/SPRAY NASAL 16GM EA NOSTRIL SCH (08:02)
[2021-05-27] MEDS ORDERED: FUROSEMIDE 10 MG/ML 2 ML VIAL IV ONE (09:32)
[2021-05-27] MEDS: ALBUTEROL HFA INHALER INHALATION SCH ×3 (10:03→21:07)
[2021-05-27] MEDS ORDERED: LOSARTAN 50 MG TAB PO STA (10:33)
--- NOTE | 2021-05-27 10:36 | P.PN ---
Subjective Progress Note Date: 05/27/21 HISTORY OF PRESENT ILLNESS This is a 76-year-old female patient of Dr. Russ and Dr. Kathy Ledesma with past medical history of coronary artery disease status post triple-vessel CABG in 2007, hyperlipidemia, hypertension, COPD, rheumatoid arthritis, osteoarthritis, chronic low back pain, urinary incontinence. Patient states that she is feeling very tired and weak and had 2 falls yesterday where her legs gave out on her and she slid on the gravel. She denies using her cane yesterday during the falls. She has had a cough for 1 week. She is not sure if she had fever at home. She did not seek treatment prior. She is complaining of right rib pain after the fall. Patient came into [facility] emergency center for evaluation and found to have a temperature of 100.8, heart rate 51, blood pressure 154/86, pulse ox 95% on room air. EKG is sinus rhythm. WBC 14.7, hemoglobin 13.8, platelet count 139. Electrolytes normal. BUN 22 and creatinine 1.09. Blood sugar 151. Total bilirubin 1.2, AST 56, ALT 39, alkaline phosphatase 105. LDH 969, CK 414, C-reactive protein 4.5, albumin 4.1. Lactic acid 2.2. Urinalysis clear, blood moderate, leukoesterase moderate, urine WBC 17. Escalona virus PCR not detected. Troponins 0.093, 0.133, 0.120. ProBNP 2450. Chest x-ray reveals new minimal interstitial infiltrate at the right lung base. No heart failure. Lumbar spine x-ray reveals previous surgery. Old L5 compression fracture. No acute fracture. Bilateral knee x-rays revealed no acute abnormality. Patient was started on azithromycin, ceftriaxone, blood cultures were obtained and patient admitted to the [facility] floor. 05/25: Patient is having more shortness of breath today, d-dimer was elevated at 3.35 and patient underwent subsequent CTA of the chest which revealed no evidence of acute coronary embolism. Cardiomegaly with tiny bilateral pleural effusions. Correlate for heart failure exacerbation. No suspicious focal infiltrate. She has been seen by pulmonary medicine and pneumonia is questionable. Pro-calcitonin level was ordered and repeat chest x-ray in the morning, continued to need antibiotics and hold methotrexate. Rib x-rays done yesterday revealed no displaced rib fracture. Consult was added this morning for cardiology due to elevated troponin and they have signed off patient's case, and acute coronary syndrome has been ruled out. Patient to follow-up with Dr. Martinez as an outpatient. Echocardiogram reveals EF of 60-65% with mild concentric left hypertrophy, mild aortic valve sclerosis, mild aortic regurgitation, mild mitral annular calcification. Repeat blood work reveals WBC 9.7, hemoglobin 12.2 and platelet count 92. Electrolytes unremarkable, BUN 20 creatinine 1.12. Blood sugars up and running between 98 and 108. CK is improved at 389. IV fluids decreased to 50 mL per hour. Urine culture was finalized with skin genital isiah. Sputum culture has not been obtained. Physical therapy has recommended home with homecare or subacute rehab. 05/26: Patient continues to have shortness of breath congested cough. One dose of IV Lasix 40 mg ordered. Patient had elevated blood pressures during the night and she was started on losartan 50 mg daily and hydralazine as needed. Patient is continued on azithromycin and Rocephin. Sputum culture remains on collected. She has been afebrile for the past 24 hours. Blood pressure this morning 181/63, heart rate 89, pulse ox 92% on 2 L. Repeat blood work reveals CO2 21, BUN 16 creatinine 1.08. Capillary blood glucose running between 118 and 122. Pro-calcitonin 0.31. Legionella not detected. A1c 5.7 Humalog scale will be discontinued CK is at 304 and we will discontinue IV fluids. 05/27: Patient diuresed well yesterday with 1500 mL output and repeat dose of Lasix 20 mg IV ordered for today. Patient's breathing is better from yesterday. She states she continues to have cough but no sputum production for culture. She has been afebrile, heart rate 57, blood pressure 165/71, pulse ox 96% on 2 L nasal cannula. Blood pressures have been elevated for which losartan will be increased to 100 mg daily. REVIEW OF SYSTEMS Constitutional: Noted fever, no chills, no night sweats. No weight change. Reported weakness, Reported fatigue no lethargy. No daytime sleepiness. EENT: No headache. No blurred vision or double vision, no loss of vision. No loss of Hearing, no ringing in the ears, no dizziness. No nasal drainage or congestion. No epistaxis. No sore throat. Lungs: Reports shortness of breath improved, reports cough, reports sputum production. Reports wheezing. Cardiovascular: No chest pain, no lower extremity edema. No palpitations. No paroxysmal nocturnal dyspnea. No orthopnea. No lightheadedness or dizziness. No syncopal episodes. Abdominal: No abdominal pain. No nausea, vomiting. No diarrhea. No constipation. No bloody or tarry stools.. No loss of appetite. Genitourinary: No dysuria, increased frequency, urgency. No urinary retention. Musculoskeletal: No myalgias. Reported muscle weakness, Reported gait dysfunction, Reported frequent falls. Chronic back pain. No neck pain. Reports right rib pain. Integumentary: No wounds, no lesions. No rash or pruritus. No unusual bruising. No change in hair or nails. Neurologic: No aphasia. No facial droop. No change in mentation. No head injury. No headache. No paralysis. No paresthesia. Psychiatric: No depression. No anxiety. Endocrine: Noted abnormal blood sugar. PHYSICAL EXAMINATION Gen: This is an obese 76-year-old female. Patient is resting in bed and appears to be comfortable at rest. She continues to have cough HEENT: Head is atraumatic, normocephalic. Pupils equal, round. Sclerae is anicteric. NECK: Supple. No JVD. No lymphadenopathy. No thyromegaly. LUNGS: Rhonchi in the bilateral bases. No accessory muscle usage. HEART: Regular rate and rhythm. No murmur. ABDOMEN: Soft. Bowel sounds are present. No masses. No tenderness. EXTREMITIES: No pedal edema. No calf tenderness. NEUROLOGICAL: Patient is awake, alert and oriented x3. Cranial nerves 2 through 12 are grossly intact. ASSESSMENT AND PLAN 1. Sepsis secondary to possible acute right-sided pneumonia, possible gram- negative pneumonia and urinary tract infection ruled out. Patient started on azithromycin and ceftriaxone, DuoNeb treatments 3 times daily and as needed. Obtained and monitor blood and sputum cultures. 2. Rhabdomyolysis. Discontinue IV fluids. Second dose of IV Lasix. 3. Lactic acidosis secondary to sepsis. Continue protocol, discontinue IV fluids. 4. Elevated troponins. Cardiology consult appreciated. Acute coronary syndrome ruled out. Echocardiogram as above. 5. Hyperglycemia without history of diabetes. A1c 5.7 and Humalog scale discontinued. 6. Falls secondary to sepsis, generalized weakness. PT and OT. Anticipate need for subacute rehab. 7. Hypertension. Continue Imdur 30 mg daily, Lopressor 50 mg twice daily, Bumex will be resumed tomorrow and IV fluids discontinued if CPK is improving. Losartan increased to 100 mg daily 8. History of coronary artery disease status post triple-vessel CABG in [address] Ferraro. Continue Imdur 30 mg daily, Lopressor 50 mg twice daily, aspirin 81 mg daily. 9. Hyperlipidemia. Patient not currently on statins due to leg cramps. 10. Rheumatoid arthritis. Hold methotrexate for now. 11. Chronic back pain and peripheral neuropathy. Continue Lyrica 100 mg twice daily. 12. GI prophylaxis. Protonix. 13. DVT prophylaxis. Heparin subcu. 14. COVID-19 testing negative. DISCHARGE PLAN To be determined. PT and OT recommended home with homecare or subacute rehab. Social work is following. Patient may require subacute rehab. Impression and plan of care have been directed as dictated by the signing physician. Betzy Lyman nurse practitioner acting as scribe for signing physician. Objective - Vital Signs Vital signs: Vital Signs Temp 97.5 F L 05/27/21 07:26 Pulse 57 L 05/27/21 07:26 Resp 18 05/27/21 07:26 BP 165/71 05/27/21 07:26 Pulse Ox 96 05/27/21 07:26 Intake & Output 05/26/21 05/27/21 05/27/21 18:59 06:59 18:59 Intake Total 150 Output Total 1500 850 Balance -1350 -850 Intake: Intake, IV Titration 150 Amount Sodium Chloride 0.9% 1, 100 000 ml @ 50 mls/hr IV . Q20H [place] Rx#:[id number] cefTRIAXone 1 gm In 50 Sodium Chloride 0.9% 50 ml @ 100 mls/hr IVPB Q12H [place] Rx#:[id number] Output: Urine 1500 850 Other: Voiding Method Bedside Commode External Catheter - Labs CBC & Chem 7: 05/26/21 08:10 05/26/21 08:10 Labs: Abnormal Lab Results - Last 24 Hours (Table) 05/26/21 Range/Units 08:10 RBC 3.65 L (4.10-5.20) X 10*6/uL Hgb 11.1 L (12.0-15.0) g/dL Hct 33.8 L (37.2-46.3) % RDW 15.1 H (11.5-14.5) % Plt Count 96 L (140-440) X 10*3/uL MPV 13.6 H (9.5-12.2) fL Microbiology - Last 24 Hours (Table) 05/24/21 01:35 Blood Culture - Preliminary Blood No Growth after 72 hours 05/24/21 01:52 Blood Culture - Preliminary Blood No Growth after 72 hours
[2021-05-27] MEDS: HYDROcodone/APAP 10-325MG 1 EACH TAB PO SCH (12:54)
[2021-05-27] MEDS: PREGABALIN 100 MG CAP PO SCH ×2 (12:54→20:02)
--- NOTE | 2021-05-27 14:23 | P.PN ---
Subjective Progress Note Date: 05/27/21 -76 year-old female patient was hospitalized for generalized weakness and falls. She is currently under investigation for underlying infection/sepsis.. She has some congested cough. No worsening shortness of breath. She is on oxygen 2 L in the pulse ox is ranging between 95-97%. No pleurisy. No hemoptysis. No chest pain. No swelling lower extremities. No dysuria frequency urgency. She had a diarrhea approximately 2 weeks ago did recover. No altered mentation. No headaches. Her CPK slightly elevated and the patient was having some falls. There is also some minimal troponin leak. She has been vaccinated for COVID-19 and her COVID-19 testing was negative. Troponins were 0.09 0.13 and 0.12 and the proBNP level was 2450. Chest x-ray shows no acute consolidation. Questionable interstitial changes in the right lung base. X-ray of the lumbar spine showed an old compression fracture of the L5 spine. Bilateral knee x-ray showed degenerative arthritis. Her sugar is 151. Bilirubin is at 1.2. LFTs are slightly abnormal with an AST of 56 ALT of 39. Alkaline phosphatase of 105. LDH is 969. CRP is at 4.5. Lactic acid level was 2.2 and urinalysis was essentially negative. Currently on accommodation Rocephin and Zithromax. The patient is seen today 05/26/2021 in follow-up on the regular medical floor. She is currently resting fairly comfortably in bed. She still has a loose nonproductive cough. She did have a T-max yesterday 100.5. Currently 99.3. Maintaining O2 saturations in the low 90s on 2 L per nasal cannula. Sodium 130. Potassium 4.5. Creatinine 1.08. Glucose 122. She remains on ceftriaxone and azithromycin. Continue bronchodilators. CT angiogram ruled out pulmonary embolism. Some basilar effusions. Procalcitonin level 0.31. 05/27/2021, the patient is feeling much better. Less short of breath. Less bronchospastic and wheezy. No new complaints otherwise for now. The patient's prognosis offered bronchodilators, steroids and diuretics. In fact he was given another dose of diuretic today which is feeling much better. Much improved in terms of her symptoms. Her CAT scan of the chest was negative for any pneu monia. Blood cultures were negative. White echo was not elevated at 8.4. Objective - Vital Signs Vital signs: Vital Signs Temp 97.5 F L 05/27/21 07:26 Pulse 57 L 05/27/21 07:26 Resp 18 05/27/21 07:26 BP 165/71 05/27/21 07:26 Pulse Ox 96 05/27/21 07:26 Intake & Output 05/26/21 05/27/21 05/27/21 18:59 06:59 18:59 Intake Total 150 50 Output Total 1500 850 Balance -1350 -850 50 Intake: Intake, IV Titration 150 50 Amount Sodium Chloride 0.9% 1, 100 000 ml @ 50 mls/hr IV . Q20H [facility] Rx#:[id number] cefTRIAXone 1 gm In 50 50 Sodium Chloride 0.9% 50 ml @ 100 mls/hr IVPB Q12H [facility] Rx#:[id number] Output: Urine 1500 850 Other: Voiding Method Bedside Commode External Catheter External Catheter - Exam The patient is a pleasant 76-year-old female patient appears well nourished and normally developed. Vital signs as documented. She is currently on 2 L of oxygen by nasal cannula. Breathing is nonlabored. Head exam is unremarkable. No scleral icterus or corneal arcus noted. Neck is without jugular venous distension, thyromegaly, or carotid bruits. Carotid upstrokes are brisk bilaterally. Breath sounds are diminished in lung bases bilaterally. She has rhonchi at the lung bases bilaterally. Cardiac exam reveals the PMI to be normally sized and situated. Rhythm is regular. First and second heart sounds normal. No murmurs, rubs or gallops. Abdominal exam reveals normal bowel sounds, no masses, no organomegaly and no aortic enlargement. Extremities are nonede matous and both femoral and pedal pulses are normal.Examination of the skin revealed no evidence of significant rashes, suspicious appearing nevi or other concerning lesions.Neurologically, the patient is awake and alert and the patient does not have any focal neurological deficit. Cranial nerves are essentially intact. - Labs CBC & Chem 7: 05/26/21 08:10 05/26/21 08:10 Labs: Microbiology - Last 24 Hours (Table) 05/24/21 01:35 Blood Culture - Preliminary Blood No Growth after 72 hours 05/24/21 01:52 Blood Culture - Preliminary Blood No Growth after 72 hours Assessment and Plan Plan: 1 questionable right lower lobe pneumonia currently under investigation. The patient increased cough and congestion. Some mild hypoxemia on 2 L of oxygen by nasal cannula. White cell count slightly elevated. She had a low-grade fever. No other obvious source of infection at this point in time. Noted the computed tomography scan of the chest did not reveal any pneumonia. Consider underlying tracheal bronchitis. Response to combination of diuretic steroids and antib iotics. 2 obesity with a BMI of 34.4 3 coronary artery disease with previous bypass surgery 4 hyperlipidemia 5 hypertension 6 falls with generalized weakness and mild rhabdomyolysis with elevation of the CPK 7 rheumatoid arthritis mental and methotrexate on outpatient basis. 8 hyperglycemia, under investigation for underlying diabetes mellitus 9 troponin leak 10 mild lactic acidosis Plan Continue same treatment Check pro-calcitonin level is not elevated at 0.3 Sputum Gram stain and culture if possible Hold methotrexate Continue IV Solu-Medrol Continue diuretics Switch this patient a prednisone taper as of tomorrow Titrate oxygen flow to maintain a saturation above 90% We'll follow. Clinically much improved
[2021-05-27] MEDS: ASPIRIN 81 MG PO SCH (20:01)
[2021-05-28] MEDS: methylPREDNISolone SOD SUCCI 125 MG/2 ML VIAL IV SCH ×4 (00:39→16:44)
[2021-05-28] MEDS: MORPHINE SULFATE 4 MG/ML SYRINGE IV PRN ×2 (00:39→10:38)
[2021-05-28] MEDS: HEPARIN SODIUM,PORCINE/PF 5,000 UNIT/0.5 ML SYRINGE SQ SCH ×3 (00:39→16:45)
[2021-05-28] MEDS: PANTOPRAZOLE 40 MG TABLET PO SCH (08:49)
[2021-05-28] MEDS: LOSARTAN 50 MG TAB PO SCH (08:49)
[2021-05-28] MEDS: guaiFENesin 600 MG TABLET.ER PO SCH ×2 (08:49→19:33)
[2021-05-28] MEDS: DOCUSATE 100 MG CAP PO SCH (08:49)
[2021-05-28] MEDS: METOPROLOL TARTRATE 50 MG TAB PO SCH ×2 (08:50→19:33)
[2021-05-28] MEDS: FOLIC ACID 1 MG TAB PO SCH (08:50)
[2021-05-28] MEDS: FLUTICASONE 50MCG/SPRAY NASAL 16GM EA NOSTRIL SCH (08:50)
[2021-05-28] MEDS: ISOSORBIDE MONONITRATE ER 30 MG TAB.ER.24H PO SCH (08:50)
[2021-05-28] MEDS: POTASSIUM CHLORIDE ER 20 MEQ TAB.ER PO SCH (08:50)
[2021-05-28] MEDS: MULTIVITAMINS, THERA 1 EACH TAB PO SCH (08:50)
[2021-05-28] MEDS: ALBUTEROL HFA INHALER INHALATION SCH ×3 (09:18→20:59)
--- NOTE | 2021-05-28 11:59 | CDI ---
Documentation Clarification Form Date: 05/28/2021 11:20:23 AM From: Elvia Enciso RN, CCDS Admit Date: 05/24/2021 01:44:00 AM Patient Name: Alyssa Roca Visit Number: [id number] Discharge Date: ATTENTION: The Clinical Documentation Specialists (CDI) and [facility] Coding Staff appreciate your assistance in clarifying documentation. Please respond to the clarification below the line at the bottom and electronically sign. The CDI & [facility] Coding staff will review the response and follow-up if needed. Please note: Queries are made part of the Legal Health Record. If you have any questions, please contact the author of this message via ITS. Dr. Keith Bocanegra There is documentation of supply and demand mismatch in your consult on 05/25/21. Additional clarification is requested. History/Risk Factors: CAD post CABG x4 vessels, Rheumatoid arthritis, hypertension, Former smoker Clinical Indicators: 76-year-old female present on 05/24 with fall and weakness. In ED found to have temperature of 100.8 heart rate 51, blood pressure 154/86, and pulse ox 95 % room air. EKG reveals sinus rhythm, heart rate 90 second- degree AV block type I, no significant ST-T wave changes per consult notes. She was ruled in for sepsis secondary to acute right-sided pneumonia, possible gram- negative pneumonia and urinary tract infection per attending. 05/24 Labs: WBC 14.7, BUN 22, and CR 1.09. C-reactive protein 4.5, lactic acid 2.2. UA Leukocyte esterase moderate, urine WBC 17. Troponins 0.093, 0.133, 0.120. ProBNP 2450 CXR: new minimal interstitial infiltrate at the right lung base. 05/25 ECHO: Overall left ventricular systolic function is normal with, an EF between 60-65 % Treatment: .9 NS at 100 ML/HR (05/24-05/25) decreased to 50 ML/HR (05/25-05/26) Azithromycin Rocephin 1GM IVPB Q 12 DuoNeb treatments 3 times daily and PRN Monitor Labs per orders CPK daily x2 Imdur 30 MG PO Daily Lopressor 50 MG PO BID Solu-Medrol 60 MG IV Q 6HR 05/26 Can you please further clarify Supply demand mismatch? [ ] Type 2 IA secondary to Sepsis [ ] Demand Ischemia without IA [ ] Other, please specify [ ] Unable to determine (Template Last Revised: October 2020) MTDD
[2021-05-28] MEDS: PREGABALIN 100 MG CAP PO SCH ×2 (13:17→19:33)
[2021-05-28] MEDS: HYDROcodone/APAP 10-325MG 1 EACH TAB PO SCH (13:18)
[2021-05-28 14:25] VITALS: RESP 17
--- NOTE | 2021-05-28 15:44 | P.PN ---
Subjective Progress Note Date: 05/28/21 Principal diagnosis: Generalized weakness, falls, questionable interstitial changes at the right lung base On 05/28/2021 patient seen in follow-up on medical surgical floor. She is awake and alert, oriented 3, she sits up in the recliner, currently on a 1/2 L of oxygen, her pulse ox is 96%, she's been afebrile, hemodynamically she is stable, denies any chest discomfort, only occasional cough, and she does get short of breath with exertion, however no significant congestion, cough, or phlegm production. Her CTA chest showed no CT evidence for pulmonary embolism, there was evidence of tiny bilateral pleural effusions no suspicious focal infiltrates. Patient continues on empiric antibiotics in the form of Rocephin, she was given a dose of IV Lasix over the weekend on Friday, she states she normally takes Bumex at home, but not because she is ALLERGIC to it. She states she would rather try the Lasix if it works. She remains on IV steroids and nebulized bronchodilators. She is breathing comfortably at this point. She is at -500 mL net fluid balance over the last 24 hours, no significant swelling in the lower extremities. Her blood and urine cultures have been negative. Objective - Vital Signs Vital signs: Vital Signs Temp 97.4 F L 05/28/21 13:48 Pulse 53 L 05/28/21 13:48 Resp 17 05/28/21 13:48 BP 138/62 05/28/21 13:48 Pulse Ox 96 05/28/21 13:48 Intake & Output 05/27/21 05/28/21 05/28/21 18:59 06:59 18:59 Intake Total 50 Output Total 550 Balance 50 -550 Intake: Intake, IV Titration 50 Amount cefTRIAXone 1 gm In 50 Sodium Chloride 0.9% 50 ml @ 100 mls/hr IVPB Q12H [facility] Rx#:[id number] Output: Urine 550 Other: Voiding Method External Catheter External Catheter External Catheter - Exam GENERAL EXAM: Alert, very pleasant, 76-year-old white female, on the 1/2 L of oxygen with pulse ox of 96%, comfortable in no apparent distress. HEAD: Normocephalic/atraumatic. EYES: Normal reaction of pupils, equal size. Conjunctiva pink, sclera white. NOSE: Clear with pink turbinates. THROAT: No erythema or exudates. NECK: No masses, no JVD, no thyroid enlargement, no adenopathy. CHEST: No chest wall deformity. Symmetrical expansion. LUNGS: Equal air entry with no crackles, wheeze, rhonchi or dullness. CVS: Regular rate and rhythm, normal S1 and S2, no gallops, no murmurs, no rubs ABDOMEN: Soft, nontender. No hepatosplenomegaly, normal bowel sounds, no guarding or rigidity. EXTREMITIES: No clubbing, no edema, no cyanosis, 2+ pulses and upper and lower extremities. MUSCULOSKELETAL: Muscle strength and tone normal. SPINE: No scoliosis or deformity SKIN: No rashes CENTRAL NERVOUS SYSTEM: Alert and oriented -3. No focal deficits, tone is normal in all 4 extremities. PSYCHIATRIC: Alert and oriented -3. Appropriate affect. Intact judgment and insight. - Labs CBC & Chem 7: 05/26/21 08:10 05/26/21 08:10 Labs: Microbiology - Last 24 Hours (Table) 05/24/21 01:35 Blood Culture - Preliminary Blood No Growth after 96 hours 05/24/21 01:52 Blood Culture - Preliminary Blood No Growth after 96 hours Assessment and Plan Plan: Assessment: #1. Questionable right lower lobe pneumonia, with some mild hypoxemia requiring 2 L of oxygen. Patient presented with low-grade fevers, slight elevation of white count, some cough and congestion. However the computed tomography scan of the chest did not reveal any pneumonia. Consider underlying tracheobronchitis. She remains on a combination of IV steroids, and Rocephin #2. Tiny bilateral pleural effusions, consider possibility of CHF, mild fluid overload. Patient was given a dose of IV Lasix yesterday. #3. History of rheumatoid arthritis on methotrexate on an outpatient basis #4. Hypertension #5. Hyperlipidemia #6. Coronary artery disease with previous bypass surgery #7. Hyperglycemia, currently on steroids, however she is being investigated for possibility of underlying diabetes mellitus type 2 #8. Troponin leak #9. Mild lactic acidosis, resolved #10. Elevated d-dimer, with no CT evidence of pulmonary embolism Plan: Patient is doing well, breathing comfortably She was given a dose of IV Lasix yesterday, she is in negative fluid balance CT chest did not show clear evidence of acute pulmonary infiltrates, but did show tiny bilateral pleural effusions We will place the patient on maintenance dose of Lasix 20 mg by mouth twice daily If remains stable she can to consider for discharge home tomorrow Outpatient follow-up with Dr. Delgado in the office in 7-10 days I performed a history & physical examination of the patient and discussed their management with my nurse practitioner, Mohini Mcmullen. I reviewed the nurse practitioner's note and agree with the documented findings and plan of care. Lung sounds are positive for dim breath sounds throughout the lung dennison. The findings and the impression was discussed with the patient. I attest to the documentation by the nurse practitioner. Time with Patient: Less than 30
[2021-05-28] MEDS: FUROSEMIDE 20 MG TAB PO SCH (16:44)
[2021-05-28] MEDS: ASPIRIN 81 MG PO SCH (19:33)
[2021-05-29] MEDS: methylPREDNISolone SOD SUCCI 125 MG/2 ML VIAL IV SCH ×2 (01:22→05:11)
[2021-05-29] MEDS: HEPARIN SODIUM,PORCINE/PF 5,000 UNIT/0.5 ML SYRINGE SQ SCH ×2 (01:23→08:18)
[2021-05-29] MEDS: ALBUTEROL HFA INHALER INHALATION SCH ×2 (07:50→12:48)
--- NOTE | 2021-05-29 07:59 | P.PN ---
Subjective Progress Note Date: 05/28/21 HISTORY OF PRESENT ILLNESS This is a 76-year-old female patient of Dr. Russ and Dr. Kathy Ledesma with past medical history of coronary artery disease status post triple-vessel CABG in 2007, hyperlipidemia, hypertension, COPD, rheumatoid arthritis, osteoarthritis, chronic low back pain, urinary incontinence. Patient states that she is feeling very tired and weak and had 2 falls yesterday where her legs gave out on her and she slid on the gravel. She denies using her cane yesterday during the falls. She has had a cough for 1 week. She is not sure if she had fever at home. She did not seek treatment prior. She is complaining of right rib pain after the fall. Patient came into [facility] emergency center for evaluation and found to have a temperature of 100.8, heart rate 51, blood pressure 154/86, pulse ox 95% on room air. EKG is sinus rhythm. WBC 14.7, hemoglobin 13.8, platelet count 139. Electrolytes normal. BUN 22 and creatinine 1.09. Blood sugar 151. Total bilirubin 1.2, AST 56, ALT 39, alkaline phosphatase 105. LDH 969, CK 414, C-reactive protein 4.5, albumin 4.1. Lactic acid 2.2. Urinalysis clear, blood moderate, leukoesterase moderate, urine WBC 17. Escalona virus PCR not detected. Troponins 0.093, 0.133, 0.120. ProBNP 2450. Chest x-ray reveals new minimal interstitial infiltrate at the right lung base. No heart failure. Lumbar spine x-ray reveals previous surgery. Old L5 compression fracture. No acute fracture. Bilateral knee x-rays revealed no acute abnormality. Patient was started on azithromycin, ceftriaxone, blood cultures were obtained and patient admitted to [facility] floor. 05/25: Patient is having more shortness of breath today, d-dimer was elevated at 3.35 and patient underwent subsequent CTA of the chest which revealed no evidence of acute coronary embolism. Cardiomegaly with tiny bilateral pleural effusions. Correlate for heart failure exacerbation. No suspicious focal infiltrate. She has been seen by pulmonary medicine and pneumonia is questionable. Pro-calcitonin level was ordered and repeat chest x-ray in the morning, continued to need antibiotics and hold methotrexate. Rib x-rays done yesterday revealed no displaced rib fracture. Consult was added this morning for cardiology due to elevated troponin and they have signed off patient's case, and acute coronary syndrome has been ruled out. Patient to follow-up with Dr. Martinez as an outpatient. Echocardiogram reveals EF of 60-65% with mild concentric left hypertrophy, mild aortic valve sclerosis, mild aortic regurgitation, mild mitral annular calcification. Repeat blood work reveals WBC 9.7, hemoglobin 12.2 and platelet count 92. Electrolytes unremarkable, BUN 20 creatinine 1.12. Blood sugars up and running between 98 and 108. CK is improved at 389. IV fluids decreased to 50 mL per hour. Urine culture was finalized with skin genital isiah. Sputum culture has not been obtained. Physical therapy has recommended home with homecare or subacute rehab. 05/26: Patient continues to have shortness of breath congested cough. One dose of IV Lasix 40 mg ordered. Patient had elevated blood pressures during the night and she was started on losartan 50 mg daily and hydralazine as needed. Patient is continued on azithromycin and Rocephin. Sputum culture remains on collected. She has been afebrile for the past 24 hours. Blood pressure this morning 181/63, heart rate 89, pulse ox 92% on 2 L. Repeat blood work reveals CO2 21, BUN 16 creatinine 1.08. Capillary blood glucose running between 118 and 122. Pro-calcitonin 0.31. Legionella not detected. A1c 5.7 Humalog scale will be discontinued CK is at 304 and we will discontinue IV fluids. 05/27: Patient diuresed well yesterday with 1500 mL output and repeat dose of Lasix 20 mg IV ordered for today. Patient's breathing is better from yesterday. She states she continues to have cough but no sputum production for culture. She has been afebrile, heart rate 57, blood pressure 165/71, pulse ox 96% on 2 L nasal cannula. Blood pressures have been elevated for which losartan will be increased to 100 mg daily. 05/28: Patient states that she had diarrhea all day yesterday but apparently this has resolved. Breathing status is improving. Patient is able to get to the bathroom but female catheter is in place. Patient is encouraged to get up and ambulate. She states that she lives in a mobile home and wants to go home. Arron hernández ordered for the patient due to generalized weakness and need to perform her ADLs. Patient is currently on Lasix oral 20 mg twice daily and decide Medrol 60 mg IV every 6 hours. Anticipate probable discharge in the next 1-2 days. REVIEW OF SYSTEMS Constitutional: Noted fever, no chills, no night sweats. No weight change. Reported weakness, Reported fatigue no lethargy. No daytime sleepiness. EENT: No headache. No blurred vision or double vision, no loss of vision. No loss of Hearing, no ringing in the ears, no dizziness. No nasal drainage or congestion. No epistaxis. No sore throat. Lungs: Reports shortness of breath improved, reports cough, reports sputum production. Reports wheezing. Cardiovascular: No chest pain, no lower extremity edema. No palpitations. No paroxysmal nocturnal dyspnea. No orthopnea. No lightheadedness or dizziness. No syncopal episodes. Abdominal: No abdominal pain. No nausea, vomiting. Reports diarrhea. No constipation. No bloody or tarry stools.. No loss of appetite. Genitourinary: No dysuria, increased frequency, urgency. No urinary retention. Musculoskeletal: No myalgias. Reported muscle weakness, Reported gait dysfunction, Reported frequent falls. Chronic back pain. No neck pain. Reports right rib pain. Integumentary: No wounds, no lesions. No rash or pruritus. No unusual bruising. No change in hair or nails. Neurologic: No aphasia. No facial droop. No change in mentation. No head injury. No headache. No paralysis. No paresthesia. Psychiatric: No depression. No anxiety. Endocrine: Noted abnormal blood sugar. PHYSICAL EXAMINATION Gen: This is an obese 76-year-old female. Patient is resting in bed and appears to be comfortable at rest. Cough is improving. HEENT: Head is atraumatic, normocephalic. Pupils equal, round. Sclerae is anicteric. NECK: Supple. No JVD. No lymphadenopathy. No thyromegaly. LUNGS: Rhonchi in the bilateral bases. No accessory muscle usage. HEART: Regular rate and rhythm. No murmur. ABDOMEN: Soft. Bowel sounds are present. No masses. No abdominal tenderness. EXTREMITIES: No pedal edema. No calf tenderness. NEUROLOGICAL: Patient is awake, alert and oriented x3. Cranial nerves 2 through 12 are grossly intact. ASSESSMENT AND PLAN 1. Sepsis secondary to possible acute right-sided pneumonia, possible gram- negative pneumonia and urinary tract infection ruled out. Continue ceftriaxone, DuoNeb treatments 3 times daily and as needed, Solu-Medrol 60 mg IV every 6 hours, Lasix 20 mg twice daily oral. Obtained and monitor blood and sputum cultures. 2. Rhabdomyolysis. Discontinue IV fluids. 3. Lactic acidosis secondary to sepsis. Continue protocol, discontinue IV fluids. 4. Elevated troponins. Cardiology consult appreciated. Acute coronary syndrome ruled out. Echocardiogram as above. 5. Hyperglycemia without history of diabetes. A1c 5.7 and Humalog scale di scontinued. 6. Falls secondary to sepsis, generalized weakness. PT and OT. Anticipate need for subacute rehab. 7. Hypertension. Continue Imdur 30 mg daily, Lopressor 50 mg twice daily, Bumex will be resumed tomorrow and IV fluids discontinued if CPK is improving. Losartan increased to 100 mg daily 8. History of coronary artery disease status post triple-vessel CABG in [address] Ferraro. Continue Imdur 30 mg daily, Lopressor 50 mg twice daily, aspirin 81 mg daily. 9. Hyperlipidemia. Patient not currently on statins due to leg cramps. 10. Rheumatoid arthritis. Hold methotrexate for now. 11. Chronic back pain and peripheral neuropathy. Continue Lyrica 100 mg twice daily. 12. GI prophylaxis. Protonix. 13. DVT prophylaxis. Heparin subcu. 14. COVID-19 testing negative. DISCHARGE PLAN To be determined. PT and OT recommended home with homecare or subacute rehab. Social work is following. Patient may require subacute rehab. Rollator ordered. Impression and plan of care have been directed as dictated by the signing phys christine. Betzy Lyman nurse practitioner acting as scribe for signing physician. Objective - Vital Signs Vital signs: Vital Signs Temp 97.7 F 05/28/21 07:09 Pulse 51 L 05/28/21 07:09 Resp 18 05/28/21 07:09 BP 181/65 05/28/21 07:09 Pulse Ox 95 05/28/21 07:09 Intake & Output 05/27/21 05/28/21 05/28/21 18:59 06:59 18:59 Intake Total 50 Output Total 550 Balance 50 -550 Intake: Intake, IV Titration 50 Amount cefTRIAXone 1 gm In 50 Sodium Chloride 0.9% 50 ml @ 100 mls/hr IVPB Q12H [facility] Rx#:[id number] Output: Urine 550 Other: Voiding Method External Catheter External Catheter External Catheter - Labs CBC & Chem 7: 05/26/21 08:10 05/26/21 08:10 Labs: Microbiology - Last 24 Hours (Table) 05/24/21 01:35 Blood Culture - Preliminary Blood No Growth after 96 hours 05/24/21 01:52 Blood Culture - Preliminary Blood No Growth after 96 hours
[2021-05-29] MEDS: guaiFENesin 600 MG TABLET.ER PO SCH (08:13)
[2021-05-29] MEDS: POTASSIUM CHLORIDE ER 20 MEQ TAB.ER PO SCH (08:14)
[2021-05-29] MEDS: METOPROLOL TARTRATE 50 MG TAB PO SCH (08:14)
[2021-05-29] MEDS: DOCUSATE 100 MG CAP PO SCH (08:14)
[2021-05-29] MEDS: ISOSORBIDE MONONITRATE ER 30 MG TAB.ER.24H PO SCH (08:17)
[2021-05-29] MEDS: FOLIC ACID 1 MG TAB PO SCH (08:17)
[2021-05-29] MEDS: MULTIVITAMINS, THERA 1 EACH TAB PO SCH (08:17)
[2021-05-29] MEDS: PANTOPRAZOLE 40 MG TABLET PO SCH (08:17)
[2021-05-29] MEDS: LOSARTAN 50 MG TAB PO SCH (08:17)
[2021-05-29] MEDS: FUROSEMIDE 20 MG TAB PO SCH (08:18)
[2021-05-29] MEDS: FLUTICASONE 50MCG/SPRAY NASAL 16GM EA NOSTRIL SCH (08:18)
[2021-05-29 08:23] VITALS: BP 179/71; PULSE 61; TEMP 97.8
[2021-05-29] MEDS: HYDROcodone/APAP 10-325MG 1 EACH TAB PO SCH (11:45)
--- NOTE | 2021-05-29 12:03 | P.DS ---
Providers Date of admission: 05/24/21 01:44 Expected date of discharge: 05/29/21 Attending physician: Josef Rasheed Consults: 05/24/21 11:49 Consult Physician Routine Consulting Provider: Jarrod Martinez Consult Reason/Comments: elevated trops Do you want consulting provider notified?: Yes 05/25/21 08:56 Consult Physician Routine Consulting Provider: Vivian Deglado Consult Reason/Comments: pneumonia Do you want consulting provider notified?: Yes 05/25/21 08:59 Consult Physician Routine Consulting Provider: Keith Bocanegra Consult Reason/Comments: elevated trops, dyspnea Do you want consulting provider notified?: Yes Primary care physician: [facility] Course: HISTORY OF PRESENT ILLNESS This is a 76-year-old female patient of Dr. Russ and Dr. Kathy Ledesma with past medical history of coronary artery disease status post triple-vessel CABG in 2007, hyperlipidemia, hypertension, COPD, rheumatoid arthritis, osteoarthritis, chronic low back pain, urinary incontinence. Patient states that she is feeling very tired and weak and had 2 falls yesterday where her legs gave out on her and she slid on the gravel. She denies using her cane yesterday during the falls. She has had a cough for 1 week. She is not sure if she had fever at home. She did not seek treatment prior. She is complaining of right rib pain after the fa ll. Patient came into [facility] emergency center for evaluation and found to have a temperature of 100.8, heart rate 51, blood pressure 154/86, pulse ox 95% on room air. EKG is sinus rhythm. WBC 14.7, hemoglobin 13.8, platelet count 139. Electrolytes normal. BUN 22 and creatinine 1.09. Blood sugar 151. Total bilirubin 1.2, AST 56, ALT 39, alkaline phosphatase 105. LDH 969, CK 414, C-reactive protein 4.5, albumin 4.1. Lactic acid 2.2. Urinalysis clear, blood moderate, leukoesterase moderate, urine WBC 17. Escalona virus PCR not detected. Troponins 0.093, 0.133, 0.120. ProBNP 2450. Chest x-ray reveals new minimal interstitial infiltrate at the right lung base. No heart failure. Lumbar spine x-ray reveals previous surgery. Old L5 compression fracture. No acute fracture. Bilateral knee x-rays revealed no acute abnormality. Patient was started on azithromycin, ceftriaxone, blood cultures were obtained and patient admitted to [facility] floor. 05/25: Patient is having more shortness of breath today, d-dimer was elevated at 3.35 and patient underwent subsequent CTA of the chest which revealed no evidence of acute coronary embolism. Cardiomegaly with tiny bilateral pleural effusions. Correlate for heart failure exacerbation. No suspicious focal infiltrate. She has been seen by pulmonary medicine and pneumonia is questionable. Pro-calcitonin level was ordered and repeat chest x-ray in the morning, continued to need antibiotics and hold methotrexate. Rib x-rays done yesterday revealed no displaced rib fracture. Consult was added this morning for cardiology due to elevated troponin and they have signed off patient's case, and acute coronary syndrome has been ruled out. Patient to follow-up with Dr. Martinez as an outpatient. Echocardiogram reveals EF of 60-65% with mild concentric left hypertrophy, mild aortic valve sclerosis, mild aortic regurgitation, mild mitral annular calcification. Repeat blood work reveals WBC 9.7, hemoglobin 12.2 and platelet count 92. Electrolytes unremarkable, BUN 20 creatinine 1.12. Blood sugars up and running between 98 and 108. CK is improved at 389. IV fluids decreased to 50 mL per hour. Urine culture was finalized with skin genital isiah. Sputum culture has not been obtained. Physical therapy has recommended home with homecare or subacute rehab. 05/26: Patient continues to have shortness of breath congested cough. One dose of IV Lasix 40 mg ordered. Patient had elevated blood pressures during the night and she was started on losartan 50 mg daily and hydralazine as needed. Patient is continued on azithromycin and Rocephin. Sputum culture remains on collected. She has been afebrile for the past 24 hours. Blood pressure this morning 181/63, heart rate 89, pulse ox 92% on 2 L. Repeat blood work reveals CO2 21, BUN 16 creatinine 1.08. Capillary blood glucose running between 118 and 122. Pro-calcitonin 0.31. Legionella not detected. A1c 5.7 Humalog scale will be discontinued CK is at 304 and we will discontinue IV fluids. 05/27: Patient diuresed well yesterday with 1500 mL output and repeat dose of Lasix 20 mg IV ordered for today. Patient's breathing is better from yesterday. She states she continues to have cough but no sputum production for culture. She has been afebrile, heart rate 57, blood pressure 165/71, pulse ox 96% on 2 L nasal cannula. Blood pressures have been elevated for which losartan will be increased to 100 mg daily. 05/28: Patient states that she had diarrhea all day yesterday but apparently this has resolved. Breathing status is improving. Patient is able to get to the bathroom but female catheter is in place. Patient is encouraged to get up and ambulate. She states that she lives in a mobile home and wants to go home. Rollator ordered for the patient due to generalized weakness and need to perform her ADLs. Patient is currently on Lasix oral 20 mg twice daily and decide Medrol 60 mg IV every 6 hours. Anticipate probable discharge in the next 1-2 days. 05/29: Patient does have improvement of her breathing status, discharge plan is to return home. Yesterday, patient was started on oral Lasix by pulmonary medicine. She has been cleared for discharge by pulmonary medicine. Patient is also been seen by cardiology during her hospitalization. We will plan to order incentive spirometry which patient is to take home. Rollator has been ordered by family service caseworker. Patient will be discharged home today in stable condition. DISCHARGE DIAGNOSES 1. Sepsis secondary to possible acute right-sided pneumonia, possible gram- negative pneumonia and urinary tract infection ruled out. 2. Rhabdomyolysis. 3. Lactic acidosis secondary to sepsis. 4. Elevated troponins. Acute coronary syndrome ruled out. 5. Hyperglycemia without history of diabetes. A1c 5.7 6. Falls secondary to sepsis, generalized weakness. 7. Hypertension. 8. History of coronary artery disease status post triple-vessel CABG in [address] Ledesma. 9. Hyperlipidemia. 10. Rheumatoid arthritis. 11. Chronic back pain and peripheral neuropathy. 12. COVID-19 testing negative. DISCHARGE PLAN Home with [facility]. Rollator ordered. Impression and plan of care have been directed as dictated by the signing physician. Betzy Lyman nurse practitioner acting as scribe for signing physician. Patient Condition at Discharge: Good Plan - Discharge Summary Discharge Rx Participant: No New Discharge Prescriptions: New guaiFENesin [Mucinex] 1,200 mg PO Q12HR tablet Losartan [Cozaar] 100 mg PO DAILY #60 tab Albuterol Inhaler [Ventolin Hfa Inhaler] 2 puff INHALATION RT-TID #1 inh Continue Nitroglycerin Sl Tabs [Nitrostat] 0.4 mg SUBLINGUAL Q5M PRN PRN Reason: Chest Pain Metoprolol Tartrate [Lopressor] 50 mg PO BID Isosorbide Mononitrate ER [Imdur] 30 mg PO DAILY Multivitamins, Thera [Multivitamin (formulary)] 1 tab PO DAILY Potassium Chloride [Klor-Con 20] 20 meq PO DAILY metHOTREXate sodium [Methotrexate] 15 mg PO SAMANIEGO Folic Acid 1 mg PO DAILY Bumetanide [BUMEX] 1 mg PO DAILY Aspirin [Children's Aspirin] 81 mg PO HS Pregabalin [Lyrica] 100 mg PO BID@1400,2100 HYDROcodone/APAP 10-325MG [Bellamy 10-325] 0.5 tab PO PC-LUNCH Fluticasone Nasal Inlet [Flonase Nasal Inlet] 1 spray EA NOSTRIL DAILY Ergocalciferol [Vitamin D2 (1250 Mcg = 95256 Iu)] 1,250 mcg PO SAMANIEGO Docusate [Colace] 100 mg PO DAILY Discharge Medication List Isosorbide Mononitrate ER [Imdur] 30 mg PO DAILY 04/06/15 [History] Metoprolol Tartrate [Lopressor] 50 mg PO BID 04/06/15 [History] Nitroglycerin Sl Tabs [Nitrostat] 0.4 mg SUBLINGUAL Q5M PRN 04/06/15 [History] Multivitamins, Thera [Multivitamin (formulary)] 1 tab PO DAILY 06/14/16 [History] Potassium Chloride [Klor-Con 20] 20 meq PO DAILY 07/24/18 [History] Aspirin [Children's Aspirin] 81 mg PO HS 01/21/19 [History] Bumetanide [BUMEX] 1 mg PO DAILY 01/21/19 [History] Folic Acid 1 mg PO DAILY 01/21/19 [History] metHOTREXate sodium [Methotrexate] 15 mg PO SAMANIEGO 01/21/19 [History] Docusate [Colace] 100 mg PO DAILY 05/24/21 [History] Ergocalciferol [Vitamin D2 (1250 Mcg = 34328 Iu)] 1,250 mcg PO SAMANIEGO 05/24/21 [H istory] Fluticasone Nasal Inlet [Flonase Nasal Inlet] 1 spray EA NOSTRIL DAILY 05/24/21 [History] HYDROcodone/APAP 10-325MG [Bellamy 10-325] 0.5 tab PO PC-LUNCH 05/24/21 [History] Pregabalin [Lyrica] 100 mg PO BID@1400,2100 05/24/21 [History] Albuterol Inhaler [Ventolin Hfa Inhaler] 2 puff INHALATION RT-TID #1 inh 05/29/21 [Rx] Losartan [Cozaar] 100 mg PO DAILY #60 tab 05/29/21 [Rx] guaiFENesin [Mucinex] 1,200 mg PO Q12HR tablet 05/29/21 [Rx] Follow up Appointment(s)/Referral(s): [facility], [NON-STAFF] - As Needed Romario Russ DO [Primary Care Provider] - 07/17/21 11:45 am Vivian Delgado MD [STAFF PHYSICIAN] - 06/07/21 3:45 pm (appt will be with Awilda) Patient Instructions/Handouts: Fall Prevention for Older Adults (DC), Pneumonia (DC) Activity/Diet/Wound Care/Special Instructions: Walker order faxed to [facility]. Discharge Disposition: HOME WITH HOME HEALTH SERVICES
--- NOTE | 2021-05-29 13:59 | P.PN ---
Subjective Progress Note Date: 05/29/21 Principal diagnosis: Generalized weakness, falls, questionable interstitial changes at the right lung base On 05/28/2021 patient seen in follow-up on medical surgical floor. She is awake and alert, oriented 3, she sits up in the recliner, currently on a 1/2 L of oxygen, her pulse ox is 96%, she's been afebrile, hemodynamically she is stable, denies any chest discomfort, only occasional cough, and she does get short of breath with exertion, however no significant congestion, cough, or phlegm production. Her CTA chest showed no CT evidence for pulmonary embolism, there was evidence of tiny bilateral pleural effusions no suspicious focal infiltrates. Patient continues on empiric antibiotics in the form of Rocephin, she was given a dose of IV Lasix over the weekend on Friday, she states she normally takes Bumex at home, but not because she is ALLERGIC to it. She states she would rather try the Lasix if it works. She remains on IV steroids and nebulized bronchodilators. She is breathing comfortably at this point. She is at -500 mL net fluid balance over the last 24 hours, no significant swelling in the lower extremities. Her blood and urine cultures have been negative. On May 29, 2021 patient seen in follow-up on medical surgical floor, she sits up in the recliner, breathing comfortably, she is currently on room air, she's had no acute events overnight, no cough, no phlegm production, lung sounds are clear to auscultation, room air pulse ox is 94%. She continues on steroids and IV Rocephin, TYLENOL level was negative at 0.31, there was no evidence of acute focal pulmonary infiltrates on the chest x-ray. Yesterday we started the patient on maintenance dose of oral Lasix 20 mg twice daily. Patient has been avoiding. Overall she is feeling better. She's had no acute events overnight. No new labs today. Objective - Vital Signs Vital signs: Vital Signs Temp 97.8 F 05/29/21 08:00 Pulse 61 05/29/21 08:00 Resp 17 05/29/21 08:00 BP 179/71 05/29/21 08:00 Pulse Ox 94 L 05/29/21 08:00 Intake & Output 05/28/21 05/29/21 05/29/21 18:59 06:59 18:59 Other: Voiding Method External Catheter # Voids 2 1 - Exam GENERAL EXAM: Alert, very pleasant, 76-year-old white female, on the 1/2 L of oxygen with pulse ox of 96%, comfortable in no apparent distress. HEAD: Normocephalic/atraumatic. EYES: Normal reaction of pupils, equal size. Conjunctiva pink, sclera white. NOSE: Clear with pink turbinates. THROAT: No erythema or exudates. NECK: No masses, no JVD, no thyroid enlargement, no adenopathy. CHEST: No chest wall deformity. Symmetrical expansion. LUNGS: Equal air entry with no crackles, wheeze, rhonchi or dullness. CVS: Regular rate and rhythm, normal S1 and S2, no gallops, no murmurs, no rubs ABDOMEN: Soft, nontender. No hepatosplenomegaly, normal bowel sounds, no guarding or rigidity. EXTREMITIES: No clubbing, no edema, no cyanosis, 2+ pulses and upper and lower extremities. MUSCULOSKELETAL: Muscle strength and tone normal. SPINE: No scoliosis or deformity SKIN: No rashes CENTRAL NERVOUS SYSTEM: Alert and oriented -3. No focal deficits, tone is normal in all 4 extremities. PSYCHIATRIC: Alert and oriented -3. Appropriate affect. Intact judgment and insight. - Labs CBC & Chem 7: 05/26/21 08:10 05/26/21 08:10 Labs: Microbiology - Last 24 Hours (Table) 05/24/21 01:52 Blood Culture - Preliminary Blood No Growth after 120 hours 05/24/21 01:35 Blood Culture - Preliminary Blood No Growth after 120 hours Assessment and Plan Plan: Assessment: #1. Questionable right lower lobe pneumonia, with some mild hypoxemia requiring 2 L of oxygen. Patient presented with low-grade fevers, slight elevation of white count, some cough and congestion. However the computed tomography scan of the chest did not reveal any pneumonia. Consider underlying tracheobronchitis. She remains on a combination of IV steroids, and Rocephin #2. Tiny bilateral pleural effusions, consider possibility of CHF, mild fluid overload. Patient was given a dose of IV Lasix yesterday. #3. History of rheumatoid arthritis on methotrexate on an outpatient basis #4. Hypertension #5. Hyperlipidemia #6. Coronary artery disease with previous bypass surgery #7. Hyperglycemia, currently on steroids, however she is being investigated for possibility of underlying diabetes mellitus type 2 #8. Troponin leak #9. Mild lactic acidosis, resolved #10. Elevated d-dimer, with no CT evidence of pulmonary embolism Plan: Patient is breathing comfortably Currently on room air No fever or chills Discontinue Rocephin and steroids From pulmonary perspective patient can be considered for discharge home if cleared by medicine I performed a history & physical examination of the patient and discussed their management with my nurse practitioner, Mohini Mcmullen. I reviewed the nurse practitioner's note and agree with the documented findings and plan of care. Lung sounds are positive for dim breath sounds throughout the lung dennison. The findings and the impression was discussed with the patient. I attest to the documentation by the nurse practitioner. Time with Patient: Less than 30
--- NOTE | 2021-05-30 07:22 | CDI ---
Documentation Clarification Form Date: 05/28/2021 11:20:00 AM From: Elvia Enciso RN, CCDS Admit Date: 05/24/2021 01:44:00 AM Patient Name: Alyssa Roca Visit Number: [id number] Discharge Date: 05/29/2021 03:02:00 PM ATTENTION: The Clinical Documentation Specialists (CDI) and [facility] Coding Staff appreciate your assistance in clarifying documentation. Please respond to the clarification below the line at the bottom and electronically sign. The CDI & [facility] Coding staff will review the response and follow-up if needed. Please note: Queries are made part of the Legal Health Record. If you have any questions, please contact the author of this message via ITS. Dr. Keith Bocanegra There is documentation of supply and demand mismatch in your consult on 05/25/21. Additional clarification is requested. History/Risk Factors: CAD post CABG x4 vessels, Rheumatoid arthritis, hypertension, Former smoker Clinical Indicators: 76-year-old female present on 05/24 with fall and weakness. In ED found to have temperature of 100.8 heart rate 51, blood pressure 154/86, and pulse ox 95 % room air. EKG reveals sinus rhythm, heart rate 90 second- degree AV block type I, no significant ST-T wave changes per consult notes. She was ruled in for sepsis secondary to acute right-sided pneumonia, possible gram- negative pneumonia and urinary tract infection per attending. 05/24 Labs: WBC 14.7, BUN 22, and CR 1.09. C-reactive protein 4.5, Lactic acid 2.2; UA Leukocyte esterase moderate, urine WBC 17. Troponins 0.093, 0.133, 0.120. ProBNP 2450 CXR: new minimal interstitial infiltrate at the right lung base. 05/25 ECHO: Overall left ventricular systolic function is normal with, an EF between 60-65 % Treatment: .9 NS at 100 ML/HR (05/24-05/25) decreased to 50 ML/HR (05/25-05/26) Azithromycin Rocephin 1GM IVPB Q 12 DuoNeb treatments 3 times daily and prn Monitor Labs per orders CPK daily x2 Imdur 30 MG PO Daily Lopressor 50 MG PO BID Solu-Medrol 60 MG IV Q 6HR 05/26 Can you please further clarify Supply demand mismatch? [ X ] Type 2 ME secondary to Sepsis [ ] Demand Ischemia without ME [ ] Other, please specify [ ] Unable to determine (Template Last Revised: October 2020) MTDD
== END 2021-05-29 15:02 | disposition home health service (06) | DRG 871 ==
LOC: EC 00:02 → 4SSUR 01:44
PROVIDERS: ADMIT Internal Medicine Geriatric Medicine; ATTEND Internal Medicine Geriatric Medicine
DX: A41.9 Sepsis, unspecified organism (principal); J18.9 Pneumonia, unspecified organism; I21.A1 Myocardial infarction type 2; E87.2 Acidosis; J44.0 Chronic obstructive pulmonary disease with (acute) lower respiratory infection; M62.82 Rhabdomyolysis; E11.65 Type 2 diabetes mellitus with hyperglycemia; E66.9 Obesity, unspecified; E78.5 Hyperlipidemia, unspecified; F17.210 Nicotine dependence, cigarettes, uncomplicated; F32.9 Major depressive disorder, single episode, unspecified; F41.9 Anxiety disorder, unspecified; G62.9 Polyneuropathy, unspecified; G89.29 Other chronic pain; I08.0 Rheumatic disorders of both mitral and aortic valves; I10 Essential (primary) hypertension; Z20.822 Contact with and (suspected) exposure to COVID-19; I25.10 Atherosclerotic heart disease of native coronary artery without angina pectoris; I44.1 Atrioventricular block, second degree; M06.9 Rheumatoid arthritis, unspecified; M19.90 Unspecified osteoarthritis, unspecified site; R09.02 Hypoxemia; Z68.34 Body mass index [BMI] 34.0-34.9, adult; W18.30XA Fall on same level, unspecified, initial encounter; Z79.82 Long term (current) use of aspirin; Z79.899 Other long term (current) drug therapy; Z80.0 Family history of malignant neoplasm of digestive organs; Z80.1 Family history of malignant neoplasm of trachea, bronchus and lung; Z90.710 Acquired absence of both cervix and uterus; Z95.1 Presence of aortocoronary bypass graft; Z98.1 Arthrodesis status; R19.7 Diarrhea, unspecified
CPT/HCPCS: 36415; 71045; 71275; 72100; 80048; 80053; 81001; 82040; 82306; 82550; 82553; 82570; 82728; 83036; 83540; 83550; 83605; 83615; 83735; 83880; 83970; 84100; 84145; 84156; 84484; 84550; 85025; 85027; 85379; 85610; 85730; 86140; 86334; 86335; 87040; 87086; 87449; 87635; 93005; 93306; 94640; 94760; 99285

== ENCOUNTER 2022-01-29 13:47 | Emergency (ER) | payer MEDICARE, BC ==
[2022-01-29 14:06] VITALS: TEMP 97.8
--- NOTE | 2022-01-29 15:59 | US ---
EXAMINATION TYPE: US venous doppler duplex LE LT DATE OF EXAM: 01/29/2022 3:54 PM COMPARISON: US CLINICAL HISTORY: rule out dvt. No hx of DVT. Patient takes aspirin. Patient states she has a hx of v ein stripping in the left leg. SIDE PERFORMED: Left TECHNIQUE: The lower extremity deep venous system is examined utilizing real time linear array sonog abad with graded compression, doppler sonography and color-flow sonography. VESSELS IMAGED: Common Femoral Vein Deep Femoral Vein Greater Saphenous Vein * Femoral Vein Popliteal Vein Small Saphenous Vein * Proximal Calf Veins (* superficial vessels) Left Leg: Limited due to body habitus/edema. No evidence of DVT in veins imaged at this time. IMPRESSION: 1. Limited exam due to the patient's body habitus. No evidence of DVT as visualized. Correlate clinic ally given limitation of the exam.
--- NOTE | 2022-01-29 17:47 | ED ---
General Adult HPI - General Chief complaint: Extremity Injury, Lower Stated complaint: L leg pain Time Seen by Provider: 01/29/22 17:35 Source: patient, RN notes reviewed Mode of arrival: wheelchair Limitations: no limitations - History of Present Illness Initial comments: Patient is a pleasant 76-year-old female presents to the emergency room at the direction of urgent care with concerns regarding left lower extremity swelling. She denies any redness, persistent swelling, shortness of breath, or chest pain. She reports that her left lower extremity is typically slightly larger than her right however over the last week and a half she has had an increase in left lower extremity swelling, calf to her foot. She reports the last few days she has had decreased swelling in her calf but her left ankle and foot remain swollen. She is also complaining of pain in her foot and ankle region. She states that this pain started approximately a week and a half ago after significant activity in and out of her car and she is unsure if she possibly twisted her ankle but denies any overt trauma. She has past medical history significant for hypertension coronary artery disease varicose veins with vein stripping, hypertension hyperlipidemia and arthritis. She reports that she has neuropathy of her left lower extremity that is unchanged with the increase in swelling. She denies any other complaints or concerns at this time. - Related Data Home Medications Medication Instructions Recorded Confirmed Isosorbide Mononitrate ER [Imdur] 30 mg PO DAILY 04/06/15 05/24/21 Metoprolol Tartrate [Lopressor] 50 mg PO BID 04/06/15 05/24/21 Nitroglycerin Sl Tabs [Nitrostat] 0.4 mg SUBLINGUAL Q5M PRN 04/06/15 05/24/21 Multivitamins, Thera [Multivitamin 1 tab PO DAILY 06/14/16 05/24/21 (formulary)] Potassium Chloride [Klor-Con 20] 20 meq PO DAILY 07/24/18 05/24/21 Aspirin [Children's Aspirin] 81 mg PO HS 01/21/19 05/24/21 Bumetanide [BUMEX] 1 mg PO DAILY 01/21/19 05/24/21 Folic Acid 1 mg PO DAILY 01/21/19 05/24/21 metHOTREXate sodium [Methotrexate] 15 mg PO SAMANIEGO 01/21/19 05/24/21 Docusate [Colace] 100 mg PO DAILY 05/24/21 05/24/21 Ergocalciferol [Vitamin D2 (1250 1,250 mcg PO SAMANIEGO 05/24/21 05/24/21 Mcg = 76874 Iu)] Fluticasone Nasal [place] [Flonase 1 spray EA NOSTRIL DAILY 05/24/21 05/24/21 Nasal [place]] HYDROcodone/APAP 10-325MG [Ashby 0.5 tab PO PC-LUNCH 05/24/21 05/24/21 10-325] Pregabalin [Lyrica] 100 mg PO BID@1400,2100 05/24/21 05/24/21 Previous Rx's Medication Instructions Recorded Albuterol Inhaler [Ventolin Hfa 2 puff INHALATION RT-TID #1 inh 05/29/21 Inhaler] Losartan [Cozaar] 100 mg PO DAILY #60 tab 05/29/21 guaiFENesin [Mucinex] 1,200 mg PO Q12HR tablet 05/29/21 Allergies Allergy/AdvReac Type Severity Reaction Status Date / Time amlodipine [From Norvasc] Allergy Unknown Verified 05/24/21 09:57 diazepam [From Valium] Allergy hard time Verified 05/24/21 09:57 coming out of anesthesia amoxicillin trihydrate AdvReac Severe Nausea & Verified 05/24/21 09:57 [From Augmentin] Vomiting & Diarrhea potassium clavulanate AdvReac Severe Nausea & Verified 05/24/21 09:57 [From Augmentin] Vomiting & Diarrhea sulfamethoxazole AdvReac Severe affected Verified 05/24/21 09:57 [From Bactrim] muscles - couldn't move trimethoprim [From Bactrim] AdvReac Severe affected Verified 05/24/21 09:57 muscles - couldn't move Fhxquto-AFC-FxE Reductase AdvReac leg cramps Verified 05/24/21 09:57 Inhibitor [Kfutjpe-Kry-Dep Reductase Inhibitor] Sulfa (Sulfonamide AdvReac Unknown Verified 01/29/22 14:06 Antibiotics) xanax AdvReac Unknown Uncoded 08/29/20 15:34 Review of Systems ROS Statement: Those systems with pertinent positive or pertinent negative responses have been documented in the HPI. ROS Other: All systems not noted in ROS Statement are negative. 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 CATARACTS RONY. carpal tunnelWITH LENS IMPLANT 2007, lower back spinal fusion 2018, left knee surgery 2018., Past Anesthesia/Blood Transfusion Reactions: Postoperative Nausea & Vomiting (PONV) Additional Past Anesthesia/Blood Transfusion Reaction / Comment(s): PONV and hard to wake up Past Psychological History: Anxiety, Depression Past Alcohol Use History: None Reported Past Drug Use History: None Reported - Past Family History Brother(s) Additional Family Medical History / Comment(s): Shunt has 1 brother and 1 sister but she does not have any contact with them. Patient has 3 children that are all healthy. Mother Family Medical History: Cancer Additional Family Medical History / Comment(s): . Father Family Medical History: Cancer Additional Family Medical History / Comment(s): . General Exam Limitations: no limitations General appearance: alert, in no apparent distress Head exam: Present: atraumatic, normocephalic, normal inspection Eye exam: Present: normal appearance, PERRL, EOMI. Absent: scleral icterus, conjunctival injection, periorbital swelling ENT exam: Present: normal exam, mucous membranes moist Neck exam: Present: normal inspection. Absent: tenderness, meningismus, lymphadenopathy Respiratory exam: Present: normal lung sounds bilaterally. Absent: respiratory distress, wheezes, rales, rhonchi, stridor Cardiovascular Exam: Present: regular rate, normal rhythm, normal heart sounds. Absent: systolic murmur, diastolic murmur, rubs, gallop, clicks GI/Abdominal exam: Present: soft, normal bowel sounds. Absent: distended, tenderness, guarding, rebound, rigid Extremities exam: Present: tenderness (left ankle and dorsal aspect left foot), pedal edema (left +2), joint swelling (left ankle). Absent: normal capillary refill (nail bed thickening left), calf tenderness Neurological exam: Present: alert, oriented X3, CN II-XII intact Psychiatric exam: Present: normal affect, normal mood Skin exam: Present: warm, dry, intact. Absent: rash Course Vital Signs 01/29/22 01/29/22 01/29/22 13:59 14:06 17:40 Temperature 97.8 F Pulse Rate 66 Respiratory 20 Rate Blood Pressure 204/67 195/67 236/85 O2 Sat by Pulse 98 Oximetry 01/29/22 18:53 Temperature Pulse Rate Respiratory Rate Blood Pressure 177/99 O2 Sat by Pulse Oximetry Medical Decision Making - Medical Decision Making Blood pressure continues to remain elevated; patient reports controlled blood pressures at home on her current medication. She typically takes losartan at b edtime; she took her carvedilol this morning. She is also on Bumex which she takes at night as well. She states that she believes that her primary reason for blood pressure elevation is due to pain and she is requesting pain medication for the pain in her left ankle and foot. She has Ashby at home for arthric pain. Ultrasound venous Doppler of left lower extremity indicate limited exam due to body habitus no evidence of DVT. Ankle x-ray left no fracture seen plantar and Achilles calcaneal spurs and degenerative cyst formation in the lateral dome of talus. X-ray left foot shows calcaneal spurring. Mild soft tissue swelling. Small erosions and deformities of the third and fourth metatarsal heads could be related to old trauma. Inflammatory arthritis likely. No acute fracture. Blood pressure trending down after dose of morphine and oral losartan though still elevated last reading 177/99. Patient with home blood pressure medications to take when she gets home today and to has blood pressure cuff at home. She denies any headaches, chest pain, shortness breath, blurred or double vision. - Radiology Data Radiology results: report reviewed, image reviewed Disposition Clinical Impression: Calcaneal spur, HTN (hypertension) Disposition: HOME SELF-CARE Condition: Fair Instructions (If sedation given, give patient instructions): Heel Spur (ED) Additional Instructions: Recommend follow-up with podiatry outpatient for further evaluation of spurring and possible plantar fasciitis treatment. Continue take prescribed pain medication from primary care provider for ankle/foot pain. Recommend monitoring blood pressure multiple times a day including again today after nigh ttime medication. Discussed parameters for return regarding hypertension. Please return to the Emergency Department if symptoms worsen or any other concerns. Is patient prescribed a controlled substance at d/c from ED?: No Referrals: Romario Russ DO [Primary Care Provider] - 1-2 days Time of Disposition: 18:55
[2022-01-29] MEDS ORDERED: MORPHINE SULFATE 2 MG/ML SYRINGE IVP ONE (18:02)
[2022-01-29] MEDS ORDERED: LOSARTAN 50 MG TAB PO STA (18:02)
--- NOTE | 2022-01-29 18:23 | XR ---
EXAMINATION TYPE: XR ankle complete LT DATE OF EXAM: 01/29/2022 COMPARISON: NONE HISTORY: Pain TECHNIQUE: 3 views FINDINGS: There is plantar and Achilles calcaneal spurring. Ankle mortise is anatomic. There is mild soft tissue swelling around the ankle joint. There is some lucency in the lateral dome of the talus t hat measures 5 mm. IMPRESSION: No fracture seen. There is degenerative cyst formation in the lateral dome of the talus.
--- NOTE | 2022-01-29 18:33 | XR ---
EXAMINATION TYPE: XR foot complete LT DATE OF EXAM: 01/29/2022 COMPARISON: None HISTORY: Swelling and pain TECHNIQUE: Review is FINDINGS: There are some erosions on the metatarsal heads involving third and fourth and to lesser ex tent the fifth metatarsal. There is plantar and Achilles calcaneal spurring. There is soft tissue swe lling of the forefoot. No fracture seen. The hindfoot appears intact IMPRESSION: Calcaneal spurring. Mild soft tissue swelling. Small erosions and deformities of the thir d and fourth metatarsal heads could relate to old trauma. Inflammatory arthritis also possible. No ac [place] fracture seen.
[2022-01-29 19:20] VITALS: BP 175/94; PULSE 61; RESP 18
== END 2022-01-29 19:20 | disposition home or self-care (01) ==
LOC: EC 13:47
DX: M77.32 Calcaneal spur, left foot (principal); E78.5 Hyperlipidemia, unspecified; I10 Essential (primary) hypertension; Z88.8 Allergy status to other drugs, medicaments and biological substances; Z88.6 Allergy status to analgesic agent; Z88.5 Allergy status to narcotic agent; Z88.2 Allergy status to sulfonamides; Z88.1 Allergy status to other antibiotic agents
CPT/HCPCS: 73610; 73630; 93971; 99284; 96374; J2270

== ENCOUNTER 2022-04-14 15:36 | Inpatient (IN) | payer MEDICARE, BC ==
[2022-04-14] MEDS ORDERED: SODIUM CHLORIDE 0.9% 500 ML 500 ML IV STA (16:11)
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
[2022-04-14 16:37] LABS: Anisocytosis Slight; Basophils % (A) 0 %; Eosinophils # (A) 0.1 k/uL (0-0.7); Eosinophils % (A) 1 %; HCT 34.3 % (34.0-46.0); HGB 11.4 gm/dL (11.4-16.0); Lymphocytes # (A) 0.7 k/uL (1.0-4.8); Lymphocytes % (A) 6 %; MCHC 33.2 g/dL (31.0-37.0); MCV 93.4 fL (80.0-100.0); Mean Platelet Volume 9.3; Monocytes # (A) 0.7 k/uL (0-1.0); Monocytes % (A) 6 %; Neutrophils # (A) 10.7 k/uL (1.3-7.7); Neutrophils % (A) 87 %; Platelet Count 189 k/uL (150-450); Poikilocytosis Slight; RBC 3.68 m/uL (3.80-5.40); RDW 16.5 % (11.5-15.5); WBC 12.3 k/uL (3.8-10.6)
[2022-04-14 16:47] LABS: INR 1.1 (<1.2); Partial Thromboplastin Time 24.2 sec (22.0-30.0); Prothrombin Time 11.9 sec (9.0-12.0)
[2022-04-14 16:49] LABS: Albumin 3.6 g/dL (3.5-5.0); Calcium 9.5 mg/dL (8.4-10.2); Magnesium 1.8 mg/dL (1.6-2.3); Potassium 3.9 mmol/L (3.5-5.1); Total Bilirubin 0.9 mg/dL (0.2-1.3); Total Protein 6.2 g/dL (6.3-8.2)
--- NOTE | 2022-04-14 16:58 | XR ---
EXAMINATION TYPE: XR chest 2V DATE OF EXAM: 04/14/2022 COMPARISON: 06/08/2021 HISTORY: Weakness TECHNIQUE: FINDINGS: Heart size is normal. There are sternal wires. There is coarsening of the lung markings. No pleural effusion. There are no hilar masses. There is some osteopenia. There is mild anterior wedgin g of mid thoracic vertebra with mild kyphosis. IMPRESSION: Coarse lung markings suggestive of pulmonary fibrosis. No obvious heart failure. Mild acu te interstitial pneumonia not excluded. Lung markings increased compared to the exam
--- NOTE | 2022-04-14 18:53 | CT ---
EXAMINATION TYPE: CT brain wo con DATE OF EXAM: 04/14/2022 COMPARISON: None HISTORY: mental status changes CT DLP: 1095.4 mGycm Automated exposure control for dose reduction was used. Images of the brain obtained with no contrast. There is cerebral cortical atrophy. There is no mass effect or midline shift. No sign of intracranial hemorrhage. The calvarium is intact. Skull base is intact. There is normal aeration of the mastoid s inuses. IMPRESSION: Cerebral atrophy. No acute intracranial abnormality.
[2022-04-14] MEDS ORDERED: ONDANSETRON 4 MG/2 ML VIAL IVP STA (18:54)
[2022-04-14] MEDS ORDERED: MORPHINE SULFATE 2 MG/ML SYRINGE IVP ONE (18:54)
--- NOTE | 2022-04-14 18:59 | CT ---
EXAMINATION TYPE: CT abdomen pelvis w con DATE OF EXAM: 04/14/2022 COMPARISON: None HISTORY: nausea and diarrhea x6 weeks CT DLP: 1286.6 mGycm Automated exposure control for dose reduction was used. CONTRAST: Performed with IV Contrast, patient injected with 80 mL of Isovue 300. Images obtained from the diaphragm to the floor the pelvis with the IV contrast. There is some mild atelectasis at the lung bases. Heart size is normal. No pericardial effusion. Live r is intact. Spleen is intact. There is no pancreatic mass. The stomach is intact. There are clips fr om cholecystectomy. The bile ducts are not dilated. There is no adrenal mass. Kidneys show satisfactory contrast opacification. There is no hydronephrosi s. Ureters are not dilated. There is no retroperitoneal adenopathy. Bladder distends smoothly. No ing uinal hernia. No free fluid in the pelvis. No pelvic mass. There is no mesenteric edema. Appendix appears normal. There is no ascites or free air. No bowel obst ruction. Abdominal aorta is atheromatous. There is moderate narrowing of the L4-5 disc space. There is posteri or fusion surgery at L4-5 with metal artifact. There is a second-degree L4-5 spondylolisthesis. The s ubluxation is almost 12 mm. There is disc prosthesis at L4-5. There is moderately severe spinal steno sis at L4-5. The bony pelvis is intact. The hip joints are intact. Sacroiliac joints are intact. IMPRESSION: Second-degree L4-5 spondylolisthesis with spinal stenosis. No acute fracture seen. Mild subsegmental atelectasis at the lung bases. No acute abnormality in the abdomen and pelvis.
[2022-04-14 19:08] LABS: Appearance,Urine Clear (Clear); Bacteria,Urine Rare /hpf; Bilirubin,Urine Negative (Negative); Blood,Urine Negative (Negative); Color,Urine Yellow; Glucose,Urine (UA) Negative (Negative); Hyaline Casts,Urine 3 /lpf (0-2); Ketones,Urine Trace (Negative); Leukocyte Esterase,Urine Negative (Negative); Mucus,Urine Rare /hpf; Nitrite,Urine Negative (Negative); PH, Urine 5.5 (5.0-8.0); Protein,Urine 1+ (Negative); RBC,Urine <1 /hpf (0-5); Specific Gravity,Urine 1.023 (1.001-1.035); Squamous Epithelial Cell,Urine <1 /hpf (0-4); Urobilinogen,Urine <2.0 mg/dL (<2.0); WBC,Urine 1 /hpf (0-5)
[2022-04-14] MEDS ORDERED: AZITHROMYCIN 500 MG in SODIUM CHLORIDE 0.9% 250 ML IVPB STA (19:51)
[2022-04-14] MEDS ORDERED: SODIUM CHLORIDE 0.9% 1,000 ML IV STA (19:52)
[2022-04-14] MEDS ORDERED: MORPHINE SULFATE 4 MG/ML SYRINGE IV PRN (21:35)
[2022-04-14] MEDS ORDERED: IBUPROFEN 400 MG TAB PO PRN (21:35)
[2022-04-14] MEDS ORDERED: ONDANSETRON 4 MG/2 ML VIAL IVP PRN (21:35)
[2022-04-14] MEDS ORDERED: HYDROmorphone 0.5 MG/0.5 ML SYRINGE IVP PRN (21:35)
[2022-04-14] MEDS ORDERED: NALOXONE 0.4 MG/ML 1 ML VIAL IV PRN (21:35)
[2022-04-15 06:51] LABS: Anisocytosis Slight; Basophils % (A) 0 %; Eosinophils # (A) 0.2 k/uL (0-0.7); Eosinophils % (A) 2 %; HCT 28.9 % (34.0-46.0); Hypochromasia Slight; Lymphocytes % (A) 11 %; MCH 31.2 pg (25.0-35.0); MCHC 33.2 g/dL (31.0-37.0); MCV 93.8 fL (80.0-100.0); Mean Platelet Volume 9.2; Monocytes # (A) 0.7 k/uL (0-1.0); Monocytes % (A) 8 %; Neutrophils # (A) 7.4 k/uL (1.3-7.7); Neutrophils % (A) 78 %; Platelet Count 160 k/uL (150-450); Poikilocytosis Slight; RBC 3.08 m/uL (3.80-5.40); RDW 16.3 % (11.5-15.5); WBC 9.5 k/uL (3.8-10.6)
[2022-04-15 06:55] LABS: HGB 9.6 gm/dL (11.4-16.0)
[2022-04-15 07:17] LABS: Potassium 3.9 mmol/L (3.5-5.1)
[2022-04-15] MEDS: HEPARIN SODIUM,PORCINE/PF 5,000 UNIT/0.5 ML SYRINGE SQ SCH ×2 (08:42→20:40)
[2022-04-15] MEDS: ISOSORBIDE MONONITRATE ER 30 MG TAB.ER.24H PO SCH (08:42)
[2022-04-15] MEDS: POTASSIUM CHLORIDE ER 20 MEQ TAB.ER PO SCH (08:42)
[2022-04-15] MEDS: carvediloL 6.25 MG TAB PO SCH ×2 (08:42→17:17)
[2022-04-15] MEDS: FAMOTIDINE 20 MG TAB PO SCH (08:42)
[2022-04-15] MEDS: DOCUSATE 100 MG CAP PO SCH (08:42)
[2022-04-15] MEDS: MULTIVITAMINS, THERA 1 EACH TAB PO SCH (08:42)
[2022-04-15] MEDS: FOLIC ACID 1 MG TAB PO SCH (08:42)
[2022-04-15] MEDS ORDERED: FAMOTIDINE 20 MG TAB PO SCH (09:00)
--- NOTE | 2022-04-15 09:54 | P.HPIM ---
History of Present Illness This is a pleasant 77 years old female with past medical history of Coronary Artery Disease status post triple-vessel bypass, Hyperlipidemia, Hypertension, Osteoarthritis , urinary incontinence, rhematoid arthritis, Anxiety, Depression, chronic kidney disease stage III. PCP is Dr. Russ, also she sees Dr. Rodriguez as outpatient Patient presents because of generalized weakness. Patient states that she came because she has no energy for the last 3-4 days and and she fell at home about 2 days ago when she felt dizzy and fell to the ground with no residual trauma as she states. She complains from her breathing little labored for the last 34 days associated with cough and phlegm but nothing is coming up as she describes. Line she denies chest pain or abdominal pain. However she has 3-4 bouts of diarrhea daily over the last 3-4 days. No nausea vomiting but she has low appetite. She denies dysuria or urgency. No headache or dizziness. No weakness or numbness. She quit smoking in 2007, she denies alcohol or illicit drugs In the emergency room she had fever of 100.5. Recent vitals are stable and she is saturating 97% on room air, later on she was saturating 92-94% on 2 L Labs showing mild leukocytosis of 12.3, and 9.5. Hemoglobin 9.6. Platelet count 160. INR is 1.1. BMP shows sodium 136, creatinine 1.1, which is at baseline. ProBNP is 1240. Troponin 0.033. Liver enzymes slightly elevated with AST 48 and ALT 40 Urine analysis: Nonsuspicious of infection Coronavirus, and influenza virus is are undetected EKG showing normal sinus rhythm at [address]-T changes CT of the abdomen and pelvis with contrast: Second-degree L4-5 spondylolisthesis with spinal stenosis. No acute fracture seen. Mild subsegmental atelectasis of the lung bases. No acute abnormality in the abdomen and pelvis CT of the brain: No acute intracranial lesions. Chest x-ray: Coarse lung markings suggestive of pulmonary fibrosis. No obvious heart failure. Mild acute interstitial pneumonia not exclude it. Lung markings increased compared to old exam Possible bilateral interstitial community-acquired pneumonia In the emergency room patient received IV fluids and Zithromax/ceftriaxone and she was admitted with pulmonary and psych consult Review of Systems Review of systems CONSTITUTIONAL: No fever, no malaise, no fatigue. HEENT: No recent visual problems or hearing problems. Denied any sore throat. CARDIOVASCULAR: No orthopnea, PND, no palpitations, no syncope. PULMONARY: No chest wall tenderness, no hemoptysis. GASTROINTESTINAL: No diarrhea, no nausea, no vomiting, no abdominal pain. Normoactive bowel sounds. NEUROLOGICAL: No headaches, no weakness, no numbness. HEMATOLOGICAL: Denies any bleeding or petechiae. GENITOURINARY: Denies any burning micturition, frequency, or urgency. MUSCULOSKELETAL/RHEUMATOLOGICAL: Denies any joint pain, swelling, or any muscle pain. ENDOCRINE: Denies any polyuria or polydipsia. 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 CATARACTS RONY. carpal tunnelWITH LENS IMPLANT 2007, lower back spinal fusion 2018, left knee surgery 2018., Past Anesthesia/Blood Transfusion Reactions: Postoperative Nausea & Vomiting (PONV) Additional Past Anesthesia/Blood Transfusion Reaction / Comment(s): PONV and hard to wake up Past Psychological History: Anxiety, Depression Past Alcohol Use History: None Reported Past Drug Use History: None Reported - Past Family History Brother(s) Additional Family Medical History / Comment(s): Shunt has 1 brother and 1 sister but she does not have any contact with them. Patient has 3 children that are all healthy. Mother Family Medical History: Cancer Additional Family Medical History / Comment(s): . Father Family Medical History: Cancer Additional Family Medical History / Comment(s): . Medications and Allergies Home Medications Medication Instructions Recorded Confirmed Type Isosorbide Mononitrate ER [Imdur] 30 mg PO DAILY 04/06/15 04/14/22 History Multivitamins, Thera [Multivitamin 1 tab PO DAILY 06/14/16 04/14/22 History (formulary)] Potassium Chloride [Klor-Con 20] 20 meq PO DAILY 07/24/18 04/14/22 History Aspirin [Children's Aspirin] 81 mg PO HS 01/21/19 04/14/22 History Bumetanide [BUMEX] 2 mg PO DAILY 01/21/19 04/14/22 History Folic Acid 1 mg PO DAILY 01/21/19 04/14/22 History metHOTREXate sodium [Methotrexate] 20 mg PO SAMANIEGO@1400 01/21/19 04/14/22 History Docusate [Colace] 100 mg PO DAILY 05/24/21 04/14/22 History Ergocalciferol [Vitamin D2 (1250 1,250 mcg PO SAMANIEGO 05/24/21 04/14/22 History Mcg = [id number] Iu)] Pregabalin [Lyrica] 100 mg PO BID@1400,2100 05/24/21 04/14/22 History carvediloL [Coreg] 6.25 mg PO BID 04/14/22 04/14/22 History Allergies Allergy/AdvReac Type Severity Reaction Status Date / Time amlodipine [From Norvasc] Allergy Unknown Verified 04/14/22 20:37 diazepam [From Valium] Allergy hard time Verified 04/14/22 20:37 coming out of anesthesia amoxicillin trihydrate AdvReac Severe Nausea & Verified 04/14/22 20:37 [From Augmentin] Vomiting & Diarrhea potassium clavulanate AdvReac Severe Nausea & Verified 04/14/22 20:37 [From Augmentin] Vomiting & Diarrhea sulfamethoxazole AdvReac Severe affected Verified 04/14/22 20:37 [From Bactrim] muscles - couldn't move trimethoprim [From Bactrim] AdvReac Severe affected Verified 04/14/22 20:37 muscles - couldn't move Dafqzha-ELY-VgQ Reductase AdvReac leg cramps Verified 04/14/22 20:37 Inhibitor [Xgdalzx-Hbe-Ohl Reductase Inhibitor] Sulfa (Sulfonamide AdvReac Unknown Verified 04/14/22 20:37 Antibiotics) xanax AdvReac Unknown Uncoded 04/14/22 20:37 Physical Exam Vitals: Vital Signs Temp Pulse Pulse Resp BP BP Pulse Ox 04/15/22 04:30 98.6 F 04/15/22 02:00 99.1 F 77 16 130/47 92 L 04/15/22 00:05 100.5 F H 86 16 121/54 94 L 04/14/22 21:45 77 16 04/14/22 21:14 73 18 144/91 94 L 04/14/22 21:13 88 L 04/14/22 19:29 98.3 F 77 18 136/66 97 04/14/22 17:49 98.8 F 83 18 116/94 96 04/14/22 15:42 100.2 F H 99 18 187/101 97 Intake and Output 04/14/22 04/15/22 04/15/22 22:59 06:59 14:59 Output Total 761 Balance -761 Output: Urine 761 Straight 400 Other: Weight 84.368 kg GENERAL: The patient is alert and oriented x3, not in any acute distress. Well developed, well nourished. HEENT: Pupils are round and equally reacting to light. EOMI. No scleral icterus. No conjunctival pallor. Normocephalic, atraumatic. No pharyngeal erythema. No t hyromegaly. CARDIOVASCULAR: S1 and S2 present. No murmurs, rubs, or gallops. -PULMONARY: Chest is clear to auscultation, no wheezing. Bilateral scattered dictation. Mildly tachypneic ABDOMEN: Soft, nontender, nondistended, normoactive bowel sounds. No palpable organomegaly. MUSCULOSKELETAL: No joint swelling or deformity. EXTREMITIES: No cyanosis, clubbing, or pedal edema. NEUROLOGICAL: Gross neurological examination did not reveal any focal deficits. SKIN: No rashes. no petechiae. Results CBC & Chem 7: 04/15/22 06:17 04/15/22 06:17 Labs: Abnormal Lab Results - Last 24 Hours (Table) 04/14/22 04/14/22 04/14/22 Range/Units 16:23 16:23 18:50 WBC 12.3 H (3.8-10.6) k/uL RBC 3.68 L (3.80-5.40) m/uL Hgb (11.4-16.0) gm/dL Hct (34.0-46.0) % RDW 16.5 H (11.5-15.5) % Neutrophils # 10.7 H (1.3-7.7) k/uL Lymphocytes # 0.7 L (1.0-4.8) k/uL Sodium 136 L (137-145) mmol/L BUN 22 H (7-17) mg/dL Creatinine 1.10 H (0.52-1.04) mg/dL Glucose 137 H (74-99) mg/dL AST 48 H (14-36) U/L ALT 40 H (4-34) U/L Total Protein 6.2 L (6.3-8.2) g/dL Urine Protein 1+ H (Negative) Urine Ketones Trace H (Negative) Urine Bacteria Rare H (None) /hpf Hyaline Casts 3 H (0-2) /lpf Urine Mucus Rare H (None) /hpf 04/15/ Range/Units 06:17 WBC (3.8-10.6) k/uL RBC 3.08 L (3.80-5.40) m/uL Hgb 9.6 L D (11.4-16.0) gm/dL Hct 28.9 L (34.0-46.0) % RDW 16.3 H (11.5-15.5) % Neutrophils # (1.3-7.7) k/uL Lymphocytes # (1.0-4.8) k/uL Sodium (137-145) mmol/L BUN (7-17) mg/dL Creatinine (0.52-1.04) mg/dL Glucose (74-99) mg/dL AST (14-36) U/L ALT (4-34) U/L Total Protein (6.3-8.2) g/dL Urine Protein (Negative) Urine Ketones (Negative) Urine Bacteria (None) /hpf Hyaline Casts (0-2) /lpf Urine Mucus (None) /hpf Thrombosis Risk Factor Assmnt - Choose All That Apply Each Factor Represents 1 point: Obesity (BMI >25) Each Risk Factor Represents 3 Points: Age 75 years or older Thrombosis Risk Factor Assessment Total Risk Factor Score: 4 Thrombosis Risk Factor Assessment Level: Moderate Risk Assessment and Plan Assessment: Acute bilateral interstitial pneumonia Mild acute hypoxic respiratory failure Mild sepsis with Fever, with mild leukocytosis Mechanical fall without syncope Acute gastroenteritis, most likely reactive. Rule out C. diff negative diarrhea. anxiety and depression first-degree AV block, symptomatic Hypertension Hyperlipidemia Chronic kidney disease stage III History of osteoarthritis History of urinary incontinence History of coronary artery disease status post bypass procedure. Anemia Plan: This is a pleasant 77 years old female who presents with bilateral pneumonia, mild hypoxia and sepsis. Continue with ceftriaxone and Rocephin Continue with normal saline Follow up with psychiatrist for depression monitor heart rate Labs and medication were reviewed.. Continue same treatment. Continue with symptomatic treatment. Resume home medication. Monitor lytes and vitals. DVT and GI prophylaxis. Further recommendations as per clinical course of the patient DVT prophylaxis: Subcutaneous heparin GI Prophylaxis: Pepcid PT/OT: Pending Prognosis is guarded
[2022-04-15] MEDS: AZITHROMYCIN 500 MG in SODIUM CHLORIDE 0.9% 250 ML IVPB SCH (11:11)
[2022-04-15] MEDS: SODIUM CHLORIDE 0.9% 1,000 ML IV SCH ×3 (11:12→20:06)
[2022-04-15] MEDS: BUMETANIDE 1 MG TAB PO SCH (12:08)
--- NOTE | 2022-04-15 12:45 | P.CNPUL ---
History of Present Illness Consult date: 04/15/22 Requesting physician: Bryant Chester Reason for consult: dyspnea Chief complaint: Dyspnea, weakness History of present illness: This is a 77-year-old white female patient with a past medical history rheumatoid arthritis on methotrexate, coronary artery disease with previous coronary artery bypass grafting in 2007, hypertension, hyperlipidemia, history of smoking, currently in remission, patient does carry [id number] smoking history, previous episode of pneumonia, who was brought into the hospital on 04/14/2022 by EMS for evaluation of generalized weakness for 5 days, patient had 2 or 3 falls at home with no injury. She said diminished appetite, she reports nausea and diarrhea for 5 days. Reports congested nonproductive cough, shortness of breath. She has mild lower extremity edema. Denied any chest pain, no hemoptysis, no abdominal pain, chest x-ray shows coarse lung markings, and possibility of pulmonary fibrosis or mild acute interstitial pneumonia. Laboratory evaluation showed white blood cell count of 12.3, hemoglobin of 11.4, coagulation profile was within normal limits, sodium is 136, serum electrolytes are within normal limits, BUN is 22, creatinine is 1.1, AST and ALT were mildly elevated at 48 and 40 respectively, alk phos was within normal limits at 84, troponin was 0.033, proBNP was 1240, urinalysis showed 1+ protein, trace ketones, rare bacteria, COVID-19, influenza A and B were all negative. Patient was started on empiric antibiotics in the form of azithromycin and Rocephin for possibility of community acquired pneumonia, she was fluid resuscitated, she was given 1/2 L in fluids, currently IV 0.9 normal saline at [address] of abdomen and pelvis showed mild subsegmental atelectasis at the lung bases, no acute abnormality in the abdomen and pelvis. CT of the brain showed cerebral atrophy, no acute intracranial abnormality. Review of Systems All systems: negative Constitutional: Denies chills, Denies fever Eyes: denies blurred vision, denies pain Ears, nose, mouth and throat: Denies headache, Denies sore throat Cardiovascular: Denies chest pain, Denies shortness of breath Respiratory: Reports dyspnea, Denies cough Gastrointestinal: Denies abdominal pain, Denies diarrhea, Denies nausea, Denies vomiting Genitourinary: Denies dysuria, Denies hematuria Musculoskeletal: Denies myalgias Integumentary: Denies pruritus, Denies rash Neurological: Denies numbness, Denies weakness Psychiatric: Denies anxiety, Denies depression Endocrine: Denies fatigue, Denies weight change Past Medical History Past Medical History: Coronary Artery Disease (CAD), Chest Pain / Angina, Hyperlipidemia, Hypertension, Osteoarthritis (OA) Additional Past Medical History / Comment(s): ARTHRITIS HEAD TO TOE- HANDS & LOWER BACK IS THE WORST-HANDS SWELL @ TIMES, urinary incontinence, "inner ear distrubance- loss of some hearing", rhematoid arthritis History of Any Multi-Drug Resistant Organisms: None Reported Past Surgical History: Back Surgery, Cholecystectomy, Coronary Bypass/CABG, Heart Catheterization, Hysterectomy, Orthopedic Surgery Additional Past Surgical History / Comment(s): 2008-TRIPLE BYPASS, HEART CATH X 2, RT CTR 2007, EXC. CATARACTS RONY. carpal tunnelWITH LENS IMPLANT 2007, lower back spinal fusion 2017, left knee surgery 2018., Past Anesthesia/Blood Transfusion Reactions: Postoperative Nausea & Vomiting (PONV) Additional Past Anesthesia/Blood Transfusion Reaction / Comment(s): PONV and hard to wake up Past Psychological History: Anxiety, Depression Past Alcohol Use History: None Reported Past Drug Use History: None Reported - Past Family History Brother(s) Additional Family Medical History / Comment(s): Shunt has 1 brother and 1 sister but she does not have any contact with them. Patient has 3 children that are all healthy. Mother Family Medical History: Cancer Additional Family Medical History / Comment(s): . Father Family Medical History: Cancer Additional Family Medical History / Comment(s): . Medications and Allergies Home Medications Medication Instructions Recorded Confirmed Type Isosorbide Mononitrate ER [Imdur] 30 mg PO DAILY 04/06/15 04/14/22 History Multivitamins, Thera [Multivitamin 1 tab PO DAILY 06/14/16 04/14/22 History (formulary)] Potassium Chloride [Klor-Con 20] 20 meq PO DAILY 07/24/18 04/14/22 History Aspirin [Children's Aspirin] 81 mg PO HS 01/21/19 04/14/22 History Bumetanide [BUMEX] 2 mg PO DAILY 01/21/19 04/14/22 History Folic Acid 1 mg PO DAILY 01/21/19 04/14/22 History metHOTREXate sodium [Methotrexate] 20 mg PO SAMANIEGO@1400 01/21/19 04/14/22 History Docusate [Colace] 100 mg PO DAILY 05/24/21 04/14/22 History Ergocalciferol [Vitamin D2 (1250 1,250 mcg PO SAMANIEGO 05/24/21 04/14/22 History Mcg = 13060 Iu)] Pregabalin [Lyrica] 100 mg PO BID@1400,2100 05/24/21 04/14/22 History carvediloL [Coreg] 6.25 mg PO BID 04/14/22 04/14/22 History Allergies Allergy/AdvReac Type Severity Reaction Status Date / Time amlodipine [From Norvasc] Allergy Unknown Verified 04/14/22 20:37 diazepam [From Valium] Allergy hard time Verified 04/14/22 20:37 coming out of anesthesia amoxicillin trihydrate AdvReac Severe Nausea & Verified 04/14/22 20:37 [From Augmentin] Vomiting & Diarrhea potassium clavulanate AdvReac Severe Nausea & Verified 04/14/22 20:37 [From Augmentin] Vomiting & Diarrhea sulfamethoxazole AdvReac Severe affected Verified 04/14/22 20:37 [From Bactrim] muscles - couldn't move trimethoprim [From Bactrim] AdvReac Severe affected Verified 04/14/22 20:37 muscles - couldn't move Chbmgps-DZB-ItV Reductase AdvReac leg cramps Verified 04/14/22 20:37 Inhibitor [Osvjktt-Ffz-Uiw Reductase Inhibitor] Sulfa (Sulfonamide AdvReac Unknown Verified 04/14/22 20:37 Antibiotics) xanax AdvReac Unknown Uncoded 04/14/22 20:37 Physical Exam Vitals: Vital Signs Temp Pulse Pulse Resp BP BP BP 04/15/22 08:41 104 H 176/84 04/15/22 08:19 98.5 F 04/15/22 08:00 98.7 F 86 16 205/62 04/15/22 04:30 98.6 F 04/15/22 02:00 99.1 F 77 16 130/47 04/15/22 00:05 100.5 F H 86 16 121/54 04/14/22 21:45 77 16 04/14/22 21:14 73 18 144/91 04/14/22 21:13 04/14/22 19:29 98.3 F 77 18 136/66 04/14/22 17:49 98.8 F 83 18 116/94 04/14/22 15:42 100.2 F H 99 18 187/101 Pulse Ox 04/15/22 08:41 04/15/22 08:19 04/15/22 08:00 93 L 04/15/22 04:30 04/15/22 02:00 92 L 04/15/22 00:05 94 L 04/14/22 21:45 04/14/22 21:14 94 L 04/14/22 21:13 88 L 04/14/22 19:29 97 04/14/22 17:49 96 04/14/22 15:42 97 Intake and Output 04/14/22 04/15/22 04/15/22 22:59 06:59 14:59 Output Total 761 Balance -761 Output: Urine 761 Straight 400 Other: Weight 84.368 kg GENERAL EXAM: Alert, pleasant, 77-year-old white female, on 2 L of oxygen c omfortable in no apparent distress. HEAD: Normocephalic/atraumatic. EYES: Normal reaction of pupils, equal size. Conjunctiva pink, sclera white. NOSE: Clear with pink turbinates. THROAT: No erythema or exudates. NECK: No masses, no JVD, no thyroid enlargement, no adenopathy. CHEST: No chest wall deformity. Symmetrical expansion. LUNGS: Equal air entry with no crackles, wheeze, rhonchi or dullness. CVS: Regular rate and rhythm, normal S1 and S2, no gallops, no murmurs, no rubs ABDOMEN: Soft, nontender. No hepatosplenomegaly, normal bowel sounds, no guarding or rigidity. EXTREMITIES: No clubbing, mild pretibial edema, no cyanosis, 2+ pulses and upper and lower extremities. MUSCULOSKELETAL: Muscle strength and tone normal. SPINE: No scoliosis or deformity SKIN: No rashes CENTRAL NERVOUS SYSTEM: Alert and oriented -3. No focal deficits, tone is normal in all 4 extremities. PSYCHIATRIC: Alert and oriented -3. Appropriate affect. Intact judgment and insight. Results - Laboratory Findings CBC and BMP: 04/15/22 06:17 04/15/22 06:17 PT/INR, D-dimer PT 11.9 sec (9.0-12.0) 04/14/22 16:23 INR 1.1 (<1.2) 04/14/22 16:23 Abnormal lab findings: Abnormal Labs 04/14/22 04/14/22 04/14/22 16:23 16:23 18:50 WBC 12.3 H RBC 3.68 L Hgb Hct RDW 16.5 H Neutrophils # 10.7 H Lymphocytes # 0.7 L Sodium 136 L Chloride Carbon Dioxide BUN 22 H Creatinine 1.10 H Glucose 137 H AST 48 H ALT 40 H Total Protein 6.2 L Urine Protein 1+ H Urine Ketones Trace H Urine Bacteria Rare H Hyaline Casts 3 H Urine Mucus Rare H 04/15/22 04/15/22 06:17 06:17 WBC RBC 3.08 L Hgb 9.6 L D Hct 28.9 L RDW 16.3 H Neutrophils # Lymphocytes # Sodium Chloride 109 H Carbon Dioxide 20 L BUN 21 H Creatinine Glucose 108 H AST ALT Total Protein Urine Protein Urine Ketones Urine Bacteria Hyaline Casts Urine Mucus - Diagnostic Findings Chest x-ray: report reviewed, image reviewed Assessment and Plan Plan: Assessment: #1. Acute hypoxic respiratory failure related to possibility of interstitial infiltrate, possibly related to community acquired pneumonia, interstitial edema, possibility of pulmonary fibrosis is not excluded #2. Previous history of pneumonia #3. Vomiting, diarrhea, generalized weakness #4. History of smoking, currently in remission, patient carries a [id number] smoking history #5. Hypertension #6. Hyperlipidemia #7. Coronary artery disease with previous bypass grafting in 2007 #8. Rheumatoid arthritis on methotrexate #9. Osteoarthritis #10. Chronic low back pain #11. Anxiety #12. Depression Plan: Continue empiric antibiotic coverage Interstitial changes on the chest x-ray could be due to underlying pneumonia, interstitial lung disease or fluid overload We'll obtain follow-up chest x-rays We'll send a sputum for culture Legionella urine antigen Continue oral diuretics We'll obtain of pro-calcitonin level Continue breathing treatments We'll continue to follow patient's clinical course I have personally seen and examined the patient, performed the documentation and the assessment and plan as written. Number of minutes spent on the visit: [15] Time with Patient: Greater than 30
--- NOTE | 2022-04-15 14:02 | P.CN ---
Psychiatric Consult - . Consult date: 04/15/22 Consult:: 04/15/22 14:02 IDENTIFYING DATA: This patient is a , retired, 77-year-old female with significant history of depression and anxiety who presented to the emergency Department with chief complaint of weakness. HISTORY OF PRESENT ILLNESS: The patient presented to the hospital on 04/14/2022 with a chief complaint of weakness. She reportedly has had loss of appetite, nausea, and diarrhea for 5 days prior to admission. Collateral information provided by the patient's son reports that the patient has been struggling with worsening depression and anxiety. She has also been more confrontational with family members. The patient has been admitted medically and is being managed for acute bilateral pneumonia and mild sepsis with fever. Psychiatry has been consulted for evaluation and management of depression and anxiety. Upon assessment on the medical floor, present at the patient's bedside is her Kendrick whom she has been to for over 50 years. Patient is agreeable to having a present during the psychiatric evaluation. The patient reports that she has been struggling with depression over the past month. She does endorse significant symptoms of depression including anhedonia, decreased energy, poor sleep, low appetite, crying episodes, as well as suicidal ideation. However, the patient denies any intention or plan and reports no prior attempts at suicide. She is not reporting any significant symptoms of bipolar disorder and denies any history of psychosis. The patient is unable to identify any acute stressors however reports that her mood has been overall down. She is agreeable to trialing antidepressants tonight. PAST PSYCHIATRIC HISTORY: Patient has a history of anxiety and depression. Patient denies being on any psychiatric medications. Patient denies any previous psychiatric hospitalizations. Patient denies any psychiatric outpatient follow- up. Patient denies any history of suicide attempts in the past. PAST MEDICAL HISTORY: Past Medical History: Coronary Artery Disease (CAD), Chest Pain / Angina, Hyperlipidemia, Hypertension, Osteoarthritis (OA) Additional Past Medical History / Comment(s): ARTHRITIS HEAD TO TOE- HANDS & LOWER BACK IS THE WORST-HANDS SWELL @ TIMES, urinary incontinence, "inner ear distrubance- loss of some hearing", rhematoid arthritis History of Any Multi-Drug Resistant Organisms: None Reported Past Surgical History: Back Surgery, Cholecystectomy, Coronary Bypass/CABG, Heart Catheterization, Hysterectomy, Orthopedic Surgery Additional Past Surgical History / Comment(s): 2007-TRIPLE BYPASS, HEART CATH X 2, RT CTR 2008, EXC. CATARACTS RONY. carpal tunnelWITH LENS IMPLANT 2008, lower back spinal fusion 2018, left knee surgery 2018., Past Anesthesia/Blood Transfusion Reactions: Postoperative Nausea & Vomiting (PONV) Additional Past Anesthesia/Blood Transfusion Reaction / Comment(s): PONV and hard to wake up Past Psychological History: Anxiety, Depression Past Alcohol Use History: None Reported Past Drug Use History: None Reported ALLERGIES: as per EMR. CHEMICAL DEPENDENCY HISTORY: Patient denies any alcohol, marijuana, tobacco, or illicit drug use. FAMILY PSYCHIATRIC/SUBSTANCE USE HISTORY: No reported family history. SOCIAL HISTORY: Patient is and lives with her . They have been for 52 years. They have children together. Prior to retiring, the patient worked at [employer]. MENTAL STATUS EXAM: General Appearance: Patient appears to be stated age is alert, pleasant, and attempts to cooperate. Patient appears to have fair hygiene and grooming wearing hospital gown with intermittent eye contact. Behavior: Patient is lying down in bed but appears to have some psychomotor agitation. Speech: Patient's speech is fluent and nonpressured. Nonspontaneous. Mood/Affect: Patient reports their mood is "depressed", affect is congruent and malaised. Suicidality/Homicidality: Patient endorses suicidal ideation however denies any homicidal ideation, intention, and/or plan. Perceptions: Patient denies any visual hallucinations and denies any auditory hallucinations Though content/process: There is no evidence of any delusional thought content and thought process is linear and goal-directed. Memory and concentration: AOX3, grossly intact for the purposes of this session. Can spell "WORLD" backwards Judgment and insight: Fair IMPRESSIONS: Major depressive disorder Acute bilateral interstitial pneumonia Mild sepsis with Fever, with mild leukocytosis PLAN: -Continue your medical management -TSH, B12, folate ordered -At this time patient DOES NOT meet criteria for inpatient psychiatric admission. -Delirium precautions recommended with patient including - avoiding use of narcotics and INSTRUMENT TESTER sedatives, limit anticholinergic medications when possible, frequent re-orientation, minimize use of restraints, open window shades during the day and close them at night -Would recommend the following medication changes/additions: We will start Remeron 7.5 mg by mouth at bedtime to address depression -Will continue to follow along 04/15/22 14:02
[2022-04-15] MEDS: PREGABALIN 100 MG CAP PO SCH ×2 (14:39→20:41)
[2022-04-15] MEDS: BENZOCAINE/MENTHOL LOZENG 1 EACH LOZENGE MUCOUS MEM PRN (17:28)
[2022-04-15] MEDS: ASPIRIN 81 MG PO SCH (20:32)
[2022-04-15] MEDS: MIRTAZAPINE 15 MG TAB PO SCH (20:41)
[2022-04-16] MEDS: SODIUM CHLORIDE 0.9% 1,000 ML IV SCH ×2 (04:30→16:41)
[2022-04-16] MEDS: FAMOTIDINE 20 MG TAB PO SCH (09:04)
[2022-04-16] MEDS: MULTIVITAMINS, THERA 1 EACH TAB PO SCH (09:04)
[2022-04-16] MEDS: carvediloL 6.25 MG TAB PO SCH (09:04)
[2022-04-16] MEDS: DOCUSATE 100 MG CAP PO SCH (09:04)
[2022-04-16] MEDS: HEPARIN SODIUM,PORCINE/PF 5,000 UNIT/0.5 ML SYRINGE SQ SCH ×2 (09:04→21:26)
[2022-04-16] MEDS: POTASSIUM CHLORIDE ER 20 MEQ TAB.ER PO SCH (09:04)
[2022-04-16] MEDS: ISOSORBIDE MONONITRATE ER 30 MG TAB.ER.24H PO SCH (09:04)
[2022-04-16] MEDS: BUMETANIDE 1 MG TAB PO SCH (09:05)
[2022-04-16] MEDS: FOLIC ACID 1 MG TAB PO SCH (09:10)
[2022-04-16] MEDS: AZITHROMYCIN 500 MG in SODIUM CHLORIDE 0.9% 250 ML IVPB SCH (09:10)
[2022-04-16] MEDS ORDERED: IPRATROPIUM-ALBUTEROL 3 ML NEB INHALATION PRN (10:04)
--- NOTE | 2022-04-16 10:07 | P.PN ---
Subjective Progress Note Date: 04/16/22 Principal diagnosis: Dyspnea, weakness This is a 77-year-old white female patient with a past medical history rheumatoid arthritis on methotrexate, coronary artery disease with previous coronary artery bypass grafting in 2007, hypertension, hyperlipidemia, history of smoking, currently in remission, patient does carry [id number] smoking history, previous episode of pneumonia, who was brought into the hospital on 04/14/2022 by EMS for evaluation of generalized weakness for 5 days, patient had 2 or 3 falls at home with no injury. She said diminished appetite, she reports nausea and diarrhea for 5 days. Reports congested nonproductive cough, shortness of breath. She has mild lower extremity edema. Denied any chest pain, no hemoptysis, no abdominal pain, chest x-ray shows coarse lung markings, and possibility of pulmonary fibrosis or mild acute interstitial pneumonia. Laboratory evaluation showed white blood cell count of 12.3, hemoglobin of 11.4, coagulation profile was within normal limits, sodium is 136, serum electrolytes are within normal limits, BUN is 22, creatinine is 1.1, AST and ALT were mildly elevated at 48 and 40 respectively, alk phos was within normal limits at 84, troponin was 0.033, proBNP was 1240, urinalysis showed 1+ protein, trace keto pola, rare bacteria, COVID-19, influenza A and B were all negative. Patient was started on empiric antibiotics in the form of azithromycin and Rocephin for possibility of community acquired pneumonia, she was fluid resuscitated, she was given 1/2 L in fluids, currently IV 0.9 normal saline at [address] of abdomen and pelvis showed mild subsegmental atelectasis at the lung bases, no acute abnormality in the abdomen and pelvis. CT of the brain showed cerebral atrophy, no acute intracranial abnormality. On 04/16/2022 patient seen in follow-up on the medical floor. She remains weak and lethargic, she has poor cough, she has audible congestion, she is encouraged to do present cough however she states that she cannot clear the phlegm, lung sounds are positive for diffuse rhonchi, patient needs encouragement to take deep breaths and cough, she is on 2 L of oxygen pulse ox is 97%, afebrile. Continues on Rocephin and azithromycin for empiric antibiotic coverage. Objective - Vital Signs Vital signs: Vital Signs Temp 97.5 F L 04/16/22 02:35 Pulse 67 04/16/22 02:35 Resp 7 L 04/16/22 02:35 BP 131/82 04/16/22 03:15 Pulse Ox 97 04/16/22 02:35 FiO2 Intake & Output 04/15/22 04/16/22 04/16/22 18:59 06:59 18:59 Intake Total 825 Output Total 1999 675 Balance -1175 -675 Intake: IV 825 Sodium Chloride 0.9% 1, 825 000 ml @ 75 mls/hr IV . [id number] STA Rx#:[id number] Output: Urine 1999 Other: Voiding Method Indwelling Catheter # Bowel Movements 1 - Exam GENERAL EXAM: Lethargic but arousable pleasant, 77-year-old white female, on 2 L of oxygen comfortable in no apparent distress. HEAD: Normocephalic/atraumatic. EYES: Normal reaction of pupils, equal size. Conjunctiva pink, sclera white. NOSE: Clear with pink turbinates. THROAT: No erythema or exudates. NECK: No masses, no JVD, no thyroid enlargement, no adenopathy. CHEST: No chest wall deformity. Symmetrical expansion. LUNGS: Equal air entry with diffuse rhonchi, week congested cough CVS: Regular rate and rhythm, normal S1 and S2, no gallops, no murmurs, no rubs ABDOMEN: Soft, nontender. No hepatosplenomegaly, normal bowel sounds, no guarding or rigidity. EXTREMITIES: No clubbing, mild pretibial edema, no cyanosis, 2+ pulses and upper and lower extremities. MUSCULOSKELETAL: Muscle strength and tone normal. SPINE: No scoliosis or deformity SKIN: No rashes CENTRAL NERVOUS SYSTEM: Alert and oriented -3. No focal deficits, tone is normal in all 4 extremities. PSYCHIATRIC: Alert and oriented -3. Appropriate affect. Intact judgment and insight. - Labs CBC & Chem 7: 04/15/22 06:17 04/15/22 06:17 Labs: Abnormal Lab Results - Last 24 Hours (Table) 04/15/22 Range/Units 06:17 Procalcitonin 0.27 H (0.02-0.09) ng/mL Microbiology - Last 24 Hours (Table) 04/14/22 16:10 Blood Culture - Preliminary Blood No Growth after 24 hours 04/14/22 16:05 Blood Culture - Preliminary Blood No Growth after 24 hours Assessment and Plan Plan: Assessment: #1. Acute hypoxic respiratory failure related to possibility of interstitial infiltrate, possibly related to community acquired pneumonia, interstitial edema, possibility of pulmonary fibrosis is not excluded #2. Previous history of pneumonia #3. Vomiting, diarrhea, generalized weakness #4. History of smoking, currently in remission, patient carries a [id number] smoking history #5. Hypertension #6. Hyperlipidemia #7. Coronary artery disease with previous bypass grafting in 2007 #8. Rheumatoid arthritis on methotrexate #9. Osteoarthritis #10. Chronic low back pain #11. Anxiety #12. Depression Plan: We will add IV steroids Solu-Medrol 40 mg every 8 hours Continue azithromycin and Rocephin Patient needs aggressive pulmonary toileting Incentive spirometer, and flutter valve Continue breathing treatments Follow-up chest x-ray tomorrow I have personally seen and examined the patient, performed the documentation and the assessment and plan as written. Number of minutes spent on the visit: [15] Time with Patient: Less than 30
[2022-04-16] MEDS: IPRATROPIUM-ALBUTEROL 3 ML NEB INHALATION SCH ×3 (11:44→19:46)
--- NOTE | 2022-04-16 12:41 | P.CRDCN ---
History of Present Illness Consult date: 04/16/22 Requesting physician: Bryant E Sheet Reason for Consult (text): arrhythmia, First degree AVB Chief complaint: fall at home History of present illness: This is a pleasant 77-year-old female patient who follows in the office with Dr. Martinez. Has a history of CAD status post coronary artery bypass grafting in 2007, hypertension, hyperlipidemia, prior nicotine dependence, rheumatoid arthritis and prior pneumonia. She presented to the emergency department with generalized weakness for 5 days and had fallen at home 2 or 3 times. She does admit to having some dizziness at times. She's also been having a decreased appetite and reports of nausea and diarrhea for 5 days prior to admission as well as a nonproductive congested cough and shortness of breath as well as lower extremity edema. She's been admitted with acute hypoxic respiratory failure related to possibility of interstitial infiltrates possibly related to community-acquired pneumonia, interstitial edema, possibility of pulmonary fibrosis not excluded. She has been febrile at times with a T-max of 100.9F. We were asked to the patient in consultation for possible arrhythmia and first-degree AV block. Upon reviewing EKGs when EKG did show sinus mechanism with first-degree AV block and another showed evidence of second-degree type I AV block. She is currently on carvedilol 6.25 mg by mouth twice a day. On admission NT proBNP was 1240. Initial hemoglobin 11.4 with a subsequent hemoglobin yesterday of 9.6. Overall she's feeling somewhat better. Continues to complain of dizziness at times. Also at times feels that she may pass out. There are no real aggravating factors leading up to this. The episodes occur randomly. 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 CATARACTS RONY. carpal tunnelWITH LENS IMPLANT 2007, lower back spinal fusion 2018, left knee surgery 2018., Past Anesthesia/Blood Transfusion Reactions: Postoperative Nausea & Vomiting (PONV) Additional Past Anesthesia/Blood Transfusion Reaction / Comment(s): PONV and hard to wake up Past Psychological History: Anxiety, Depression Past Alcohol Use History: None Reported Past Drug Use History: None Reported - Past Family History Brother(s) Additional Family Medical History / Comment(s): Shunt has 1 brother and 1 sister but she does not have any contact with them. Patient has 3 children that are all healthy. Mother Family Medical History: Cancer Additional Family Medical History / Comment(s): . Father Family Medical History: Cancer Additional Family Medical History / Comment(s): . Medications and Allergies Home Medications Medication Instructions Recorded Confirmed Type Isosorbide Mononitrate ER [Imdur] 30 mg PO DAILY 04/06/15 04/14/22 History Multivitamins, Thera [Multivitamin 1 tab PO DAILY 06/14/16 04/14/22 History (formulary)] Potassium Chloride [Klor-Con 20] 20 meq PO DAILY 07/24/18 04/14/22 History Aspirin [Children's Aspirin] 81 mg PO HS 01/21/19 04/14/22 History Bumetanide [BUMEX] 2 mg PO DAILY 01/21/19 04/14/22 History Folic Acid 1 mg PO DAILY 01/21/19 04/14/22 History metHOTREXate sodium [Methotrexate] 20 mg PO SAMANIEGO@1400 01/21/19 04/14/22 History Docusate [Colace] 100 mg PO DAILY 05/24/21 04/14/22 History Ergocalciferol [Vitamin D2 (1250 1,250 mcg PO SAMANIEGO 05/24/21 04/14/22 History Mcg = [id number] Iu)] Pregabalin [Lyrica] 100 mg PO BID@1400,2100 05/24/21 04/14/22 History carvediloL [Coreg] 6.25 mg PO BID 04/14/22 04/14/22 History Allergies Allergy/AdvReac Type Severity Reaction Status Date / Time amlodipine [From Norvasc] Allergy Unknown Verified 04/14/22 20:37 diazepam [From Valium] Allergy hard time Verified 04/14/22 20:37 coming out of anesthesia amoxicillin trihydrate AdvReac Severe Nausea & Verified 04/14/22 20:37 [From Augmentin] Vomiting & Diarrhea potassium clavulanate AdvReac Severe Nausea & Verified 04/14/22 20:37 [From Augmentin] Vomiting & Diarrhea sulfamethoxazole AdvReac Severe affected Verified 04/14/22 20:37 [From Bactrim] muscles - couldn't move trimethoprim [From Bactrim] AdvReac Severe affected Verified 04/14/22 20:37 muscles - couldn't move [id number] Reductase AdvReac leg cramps Verified 04/14/22 20:37 Inhibitor [Twutsfi-Upi-Zex Reductase Inhibitor] Sulfa (Sulfonamide AdvReac Unknown Verified 04/14/22 20:37 Antibiotics) xanax AdvReac Unknown Uncoded 04/14/22 20:37 Physical Exam Vitals: Vital Signs Temp Pulse Pulse Pulse Resp BP BP 04/16/22 11:58 88 04/16/22 11:45 94 04/16/22 08:00 99.6 F 62 19 114/69 04/16/22 03:15 131/82 04/16/22 02:35 97.5 F L 67 7 L 177/83 04/15/22 20:55 98.6 F 04/15/22 20:00 78 17 04/15/22 18:54 100.2 F H 78 78 17 106/43 04/15/22 17:23 100.9 F H 04/15/22 15:24 94 166/71 04/15/22 14:00 99.3 F 91 18 125/62 Pulse Ox 04/16/22 11:58 04/16/22 11:45 04/16/22 08:00 92 L 04/16/22 03:15 04/16/22 02:35 97 04/15/22 20:55 04/15/22 20:00 04/15/22 18:54 93 L 04/15/22 17:23 04/15/22 15:24 04/15/22 14:00 94 L Intake and Output 04/15/22 04/16/22 04/16/22 22:59 06:59 14:59 Intake Total 825 Output Total 1600 675 Balance -775 -675 Intake: IV 825 Sodium Chloride 0.9% 1, 825 000 ml @ 75 mls/hr IV . [id number] STA Rx#:[id number] Output: Urine 1600 675 Straight 1600 Other: Voiding Method Indwelling Catheter # Bowel Movements 1 PHYSICAL EXAMINATION: This is a 77-year-old female in no apparent distress at the time of my examination. VITAL SIGNS: Blood pressure 114/69, heart rate 62, respirations 19, temp 99.6F. Patient is 92 % on liters via nasal cannula. HEENT: Head is atraumatic, normocephalic. Pupils are equal, round. Sclerae anicteric. Conjunctivae are clear. Mucous membranes of the mouth are moist. Neck is supple. There is no elevated jugular venous pressure. No carotid bruit is heard. CHEST EXAMINATION: Clear to auscultation bilaterally. No wheezes rales or rhonchi. Respirations even and nonlabored. HEART EXAMINATION: Heart regular, positive S1 and S2. No S3. No S4. No clicks, rubs or murmurs. ABDOMEN: Soft, nontender. Bowel sounds are heard. No organomegaly noted. EXTREMITIES: 2+ peripheral pulses with no evidence of peripheral edema and no calf tenderness noted. NEUROLOGIC EXAMINATION: Patient is awake, alert and oriented x3. Results 04/15/22 06:17 04/15/22 06:17 Current Medications Generic Name Dose Route Start Last Admin Trade Name Freq PRN Reason Stop Dose Admin Albuterol/Ipratropium 3 ml 04/16/22 12:00 04/16/22 11:44 Ipratropium-Albuterol 3 Ml Neb INHALATION 3 ml RT-QID [place] Administration Albuterol/Ipratropium 3 ml 04/16/22 10:04 Ipratropium-Albuterol 3 Ml Neb INHALATION RT-Q2H PRN Shortness Of Breath Or Wheezing Aspirin 81 mg 04/15/22 21:00 04/15/22 20:32 Aspirin 81 Mg PO 81 mg HS [place] Administration Benzocaine/Menthol 1 each 04/15/22 09:28 04/15/22 17:28 Benzocaine/Menthol Lozeng 1 Each Lozenge MUCOUS MEM 1 each Q4HR PRN Administration Sore Throat Bumetanide 2 mg 04/15/22 09:00 04/16/22 09:05 Bumetanide 1 Mg Tab PO 2 mg DAILY [place] Administration Carvedilol 3.125 mg 04/16/22 17:30 Carvedilol 6.25 Mg Tab PO BID-W/MEALS [place] Docusate Sodium 100 mg 04/15/22 09:00 04/16/22 09:04 Docusate 100 Mg Cap PO 100 mg DAILY [place] Administration Famotidine 20 mg 04/15/22 09:00 04/16/22 09:04 Famotidine 20 Mg Tab PO 20 mg DAILY [place] Administration Folic Acid 1 mg 04/15/22 09:00 04/16/22 09:10 Folic Acid 1 Mg Tab PO 1 mg DAILY [place] Administration Guaifenesin 1,200 mg 04/16/22 21:00 Guaifenesin 600 Mg Tablet.Er PO Q12HR [place] Heparin Sodium (Porcine) 5,000 unit 04/15/22 09:00 04/16/22 09:04 Heparin Sodium,Porcine/Pf 5,000 Unit/0.5 Ml Syringe SQ 5,000 unit Q12HR [place] Administration Hydromorphone HCl 0.5 mg 04/14/22 21:35 Hydromorphone 0.5 Mg/0.5 Ml Syringe IVP Q3HR PRN Moderate Pain Sodium Chloride 1,000 mls @ 75 mls/hr 04/14/22 21:45 04/16/22 04:30 Saline 0.9% IV 130 mls/hr .[id number] [place] Administration Ceftriaxone Sodium 1 gm/ 50 mls @ 100 mls/hr 04/15/22 21:00 04/15/22 20:33 Sodium Chloride IVPB 100 mls/hr HS DLALAS Administration Protocol Azithromycin 500 mg/ Sodium 250 mls @ 250 mls/hr 04/15/22 09:00 04/16/22 09:10 Chloride IVPB 04/17/22 09:59 250 mls/hr DAILY [place] Administration Protocol Ibuprofen 400 mg 04/14/22 21:35 04/15/22 17:28 Ibuprofen 400 Mg Tab PO 400 mg Q6HR PRN Administration Mild Pain or Fever > 100.5 Isosorbide Mononitrate 30 mg 04/15/22 09:00 04/16/22 09:04 Isosorbide Mononitrate Er 30 Mg Tab.Er.24h PO 30 mg DAILY [place] Administration Methylprednisolone Sodium Succinate 40 mg 04/16/22 16:00 Methylprednisolone Sod Succi 40 Mg/Ml 1 Ml Vial IV Q8HR [place] Mirtazapine 7.5 mg 04/15/22 21:00 04/15/22 20:41 Mirtazapine 15 Mg Tab PO 7.5 mg HS [place] Administration Morphine Sulfate 4 mg 04/14/22 21:35 Morphine Sulfate 4 Mg/Ml Syringe IV Q4HR PRN Severe Pain Multivitamins 1 each 04/15/22 09:00 04/16/22 09:04 Multivitamins, Thera 1 Each Tab PO 1 each DAILY [place] Administration Naloxone HCl 0.2 mg 04/14/22 21:35 Naloxone 0.4 Mg/Ml 1 Ml Vial IV Q2M PRN Opioid Reversal Ondansetron HCl 4 mg 04/14/22 21:35 Ondansetron 4 Mg/2 Ml Vial IVP Q8HR PRN Nausea And Vomiting Potassium Chloride 20 meq 04/15/22 09:00 04/16/22 09:04 Potassium Chloride Er 20 Meq Tab.Er PO 20 meq DAILY [place] Administration Pregabalin 100 mg 04/15/22 14:00 04/15/22 20:41 Pregabalin 100 Mg Cap PO 100 mg BID@1400,2100 [place] Administration Intake and Output 04/15/22 04/16/22 04/16/22 22:59 06:59 14:59 Intake Total 825 Output Total 1600 675 Balance -775 -675 Intake: IV 825 Sodium Chloride 0.9% 1, 825 000 ml @ 75 mls/hr IV . [id number] STA Rx#:[id number] Output: Urine 1600 675 Straight 1600 Other: Voiding Method Indwelling Catheter # Bowel Movements 1 04/15/22 06:17 04/15/22 06:17 Assessment and Plan Assessment: #1 acute hypoxic respiratory failure #2 intermittent second-degree type I AV block, symptomatic #3 CAD status post CABG in 2007 #4 hypertension #5 hyperlipidemia #6 prior nicotine dependence #7 rheumatoid arthritis Plan: From cardiology's perspective we will decrease carvedilol to 3.125 mg by mouth twice a day. We will obtain a 2-D echo with Doppler study to assess cardiac structure and function. We will continue to follow the patient and provide further recommendations accordingly. ACCOUNTING ADMINISTRATIVE ASSISTANT note has been reviewed, I agree with a documented findings and plan of care. Patient was seen and examined.
--- NOTE | 2022-04-16 12:52 | P.PN ---
Progress Note - Text Progress Note Date: 04/16/22 Interval History: Patient was seen resting in bed and was directable and agreeable to speak with ghost writer in her room. Present at bedside is the patient's Kendrick. Currently the patient reports mild improvement in depression. She reports she slept better and has mild improvement in appetite. She continues to report low energy and fatigue. She is denying any suicidal or homicidal ideation, intention, and/or plan. She reports no auditory or visual hallucinations. She r eports no significant side effects of her medication. Her does express concern with the patient appearing to be "loopy." He states she has waxing and waning consciousness however he was informed to encourage the patient to keep her nasal cannula on properly. Mental Status Exam: General Appearance: Patient appears to be stated age is intermittently somnolent but directable and cooperative. Behavior: Patient is calmly seated without any agitated behavior. She removes her nasal cannula. Speech: Patient's speech is fluent and nonpressured. Low in volume. Mood/Affect: Mood is improving mildly, affect is congruent and somewhat somnolent. Suicidality/Homicidality: Patient denies having any suicidal or homicidal ideation intent or plan. Perceptions: Patient denies any visual hallucinations and denies any auditory hallucinations Though content/process: There is no evidence of any delusional thought content and thought process is linear and goal-directed. Memory and concentration: AOX3, grossly intact for the purposes of this session Judgment and insight: Improving mildly Vital Signs Temp 99.6 F 04/16/22 08:00 Pulse 88 04/16/22 11:58 Resp 19 04/16/22 08:00 BP 114/69 04/16/22 08:00 Pulse Ox 92 L 04/16/22 08:00 FiO2 Intake & Output 04/15/22 04/16/22 04/16/22 18:59 06:59 18:59 Intake Total 825 Output Total 1999 675 Balance -1175 -675 Intake: IV 825 Sodium Chloride 0.9% 1, 825 000 ml @ 75 mls/hr IV . [id number] [facility] Rx#:[id number] Output: Urine 1999 675 Straight 1999 Other: Voiding Method Indwelling Catheter # Bowel Movements 1 Laboratory Results - Last 24 Hours 04/14/22 04/14/22 04/15/22 16:23 16:23 06:17 Vitamin B12 823.0 Folate >20.00 Procalcitonin 0.27 H TSH 0.419 Legionella Source Urine Legionella Ag 04/15/22 13:20 Vitamin B12 Folate Procalcitonin TSH Legionella Source Urine Urine Legionella Ag Negative Assessment Major depressive disorder Acute bilateral interstitial pneumonia Mild sepsis with Fever, with mild leukocytosis Hypoxia Plan: -Continue your medical management -TSH, B12, folate ordered - WNL -Patient encoruaged to keep her nasal cannula on properly. -At this time patient DOES NOT meet criteria for inpatient psychiatric admission. -Delirium precautions recommended with patient including - avoiding use of narcotics and NURSING STUDENT sedatives, limit anticholinergic medications when possible, f requent re-orientation, minimize use of restraints, open window shades during the day and close them at night -Would recommend the following medication changes/additions: Continue Remeron 7.5 mg by mouth at bedtime to address depression -Will continue to follow along
[2022-04-16] MEDS: carvediloL 3.125 MG TAB PO SCH (16:41)
[2022-04-16] MEDS: methylPREDNISolone SOD SUCCI 40 MG/ML 1 ML VIAL IV SCH (16:41)
[2022-04-16] MEDS: PREGABALIN 100 MG CAP PO SCH ×2 (16:42→21:25)
[2022-04-16] MEDS: BENZOCAINE/MENTHOL LOZENG 1 EACH LOZENGE MUCOUS MEM PRN (17:47)
[2022-04-16 20:01] LABS: Glucose,Whole Blood 273 mg/dL (70-110)
--- NOTE | 2022-04-16 21:06 | P.PN ---
Subjective This is a pleasant 77 years old female with past medical history of Coronary Artery Disease status post triple-vessel bypass, Hyperlipidemia, Hypertension, Osteoarthritis , urinary incontinence, rhematoid arthritis, Anxiety, Depression, chronic kidney disease stage III. PCP is Dr. Russ, also she sees Dr. Rodriguez as outpatient Patient presents because of generalized weakness. Patient states that she came because she has no energy for the last 3-4 days and and she fell at home about 2 days ago when she felt dizzy and fell to the ground with no residual trauma as she states. She complains from her breathing little labored for the last 34 days associated with cough and phlegm but nothing is coming up as she describes. Line she denies chest pain or abdominal pain. However she has 3-4 bouts of diarrhea daily over the last 3-4 days. No nausea vomiting but she has low appetite. She denies dysuria or urgency. No headache or dizziness. No weakness or numbness. She quit smoking in 2007, she denies alcohol or illicit drugs In the emergency room she had fever of 100.5. Recent vitals are stable and she is saturating 97% on room air, later on she was saturating 92-94% on 2 L Labs showing mild leukocytosis of 12.3, and 9.5. Hemoglobin 9.6. Platelet count 160. INR is 1.1. BMP shows sodium 136, creatinine 1.1, which is at baseline. ProBNP is 1240. Troponin 0.033. Liver enzymes slightly elevated with AST 48 and ALT 40 Urine analysis: Nonsuspicious of infection Coronavirus, and influenza virus is are undetected EKG showing normal sinus rhythm at [address]-T changes CT of the abdomen and pelvis with contrast: Second-degree L4-5 spondylolisthesis with spinal stenosis. No acute fracture seen. Mild subsegmental atelectasis of the lung bases. No acute abnormality in the abdomen and pelvis CT of the brain: No acute intracranial lesions. Chest x-ray: Coarse lung markings suggestive of pulmonary fibrosis. No obvious heart failure. Mild acute interstitial pneumonia not exclude it. Lung markings increased compared to old exam Possible bilateral interstitial community-acquired pneumonia In the emergency room patient received IV fluids and Zithromax/ceftriaxone and she was admitted with pulmonary and psych consult 04/16/2022 patient states today her breathing is slightly better she still has weak cough and hard for her to cough, incentive spirometry has been admitted for her. She has little or no nausea or vomiting today, she had some pudding but she has normal bowel movement. She is saturating 92% on 2 L oxygen No labs from today. She remains on Zithromax, ceftriaxone, normal saline 75 mL/h, Solu-Medrol 40 mg IV daily Coreg lower today to 3.125 because of intermittent second degree heart block Objective - Vital Signs Vital signs: Vital Signs Temp 99.6 F 04/16/22 08:00 Pulse 88 04/16/22 11:58 Resp 19 04/16/22 08:00 BP 114/69 04/16/22 08:00 Pulse Ox 92 L 04/16/22 08:00 FiO2 Intake & Output 04/15/22 04/16/22 04/16/22 18:59 06:59 18:59 Intake Total 825 Output Total 1999 675 Balance -1175 -675 Intake: IV 825 Sodium Chloride 0.9% 1, 825 000 ml @ 75 mls/hr IV . [id number] [facility] Rx#:[id number] Output: Urine 1999 Straight 1999 Other: Voiding Method Indwelling Catheter # Bowel Movements 1 - Exam GENERAL: The patient is alert and oriented x3, not in any acute distress. Well developed, well nourished. HEENT: Pupils are round and equally reacting to light. EOMI. No scleral icterus. No conjunctival pallor. Normocephalic, atraumatic. No pharyngeal erythema. No thyromegaly. CARDIOVASCULAR: S1 and S2 present. No murmurs, rubs, or gallops. -PULMONARY: Chest is clear to auscultation, scattered wheezing ABDOMEN: Soft, nontender, nondistended, normoactive bowel sounds. No palpable organomegaly. MUSCULOSKELETAL: No joint swelling or deformity. EXTREMITIES: No cyanosis, clubbing, or pedal edema. NEUROLOGICAL: Gross neurological examination did not reveal any focal deficits. SKIN: No rashes. no petechiae. - Labs CBC & Chem 7: 04/15/22 06:17 04/15/22 06:17 Labs: Abnormal Lab Results - Last 24 Hours (Table) 04/15/22 Range/Units 06:17 Procalcitonin 0.27 H (0.02-0.09) ng/mL Microbiology - Last 24 Hours (Table) 04/14/22 16:10 Blood Culture - Preliminary Blood No Growth after 24 hours 04/14/22 16:05 Blood Culture - Preliminary Blood No Growth after 24 hours
[2022-04-16] MEDS: MIRTAZAPINE 15 MG TAB PO SCH (21:25)
[2022-04-16] MEDS: ASPIRIN 81 MG PO SCH (21:25)
[2022-04-16] MEDS: guaiFENesin 600 MG TABLET.ER PO SCH (21:26)
[2022-04-16 23:33] LABS: Glucose,Whole Blood 228 mg/dL (70-110)
[2022-04-17] MEDS: methylPREDNISolone SOD SUCCI 40 MG/ML 1 ML VIAL IV SCH ×2 (00:59→10:34)
--- NOTE | 2022-04-17 07:16 | CA ---
Transthoracic Echo Report Name: Alyssa Roca Age: 77 Gender: F : 1945 Exam Date: 04/16/2022 13:47 Exam Location: [facility] Ht (in): 63 Wt (lb): 186 Ordering Physician: Meghna Fonseca Attending/Referring Phys: [id number], Marian Bandmill Operator Alba Marcial RDCS Procedure CPT: Indications: Second degree type I AVB, dizziness, CAD s/p CABG Cardiac Hx: Technical Quality: Fair Contrast 1: Total Dose (mL): Contrast 2: Total Dose (mL): MEASUREMENTS (Male / Female) Normal Values 2D ECHO LV Diastolic Diameter PLAX 2.8 cm 4.2 - 5.9 / 3.9 - 5.3 cm LV Systolic Diameter PLAX 2.1 cm IVS Diastolic Thickness 1.5 cm 0.6 - 1.0 / 0.6 - 0.9 cm LVPW Diastolic Thickness 1.3 cm 0.6 - 1.0 / 0.6 - 0.9 cm LV Relative Wall Thickness 1.0 RV Internal Dim ED PLAX 3.6 cm LA Volume 79.1 cm??? 18 - 58 / 22 - 52 cm??? M-MODE Aortic Root Diameter MM 3.1 cm LA Systolic Diameter MM 4.5 cm LA Ao Ratio MM 1.4 AV Cusp Separation MM 1.2 cm DOPPLER AV Peak Velocity 198.3 cm/s AV Peak Gradient 15.7 mmHg AI Peak Velocity 317.1 cm/s AI Peak Gradient 40.2 mmHg AI Pressure Half Time 319.2 ms LVOT Peak Velocity 125.2 cm/s LVOT Peak Gradient 6.3 mmHg MV Area PHT 2.1 cm??? Mitral E Point Velocity 77.9 cm/s Mitral A Point Velocity 115.3 cm/s Mitral E to A Ratio 0.7 MV Deceleration Time 360.3 ms FINDINGS Left Ventricle Moderately increased left ventricular wall thickness. Left ventricular ejection fraction is estimated at 50-55 %.left ventricular cavity size normal. Right Ventricle Mild right ventricular dilatation. Right Atrium Mild right atrial dilatation. Left Atrium Severely increased left atrial volume. Mitral Valve Mitral annular calcification. Mild mitral regurgitation. Aortic Valve Mild aortic regurgitation. Aortic valve sclerosis. Tricuspid Valve Mild tricuspid regurgitation.structurally normal tricuspid valve. Pulmonic Valve Trace pulmonic regurgitation. Pericardium No pericardial effusion. Aorta Normal size aortic root and proximal ascending aorta. CONCLUSIONS 1. Left ventricle systolic function borderline normal 2. Moderate mitral, aortic and tricuspid regurgitation 3. No pericardial effusion Previewed by: Dr. Bryan Chavarria MD (Electronically Signed) Final Date: 17 April 2022 07:15
[2022-04-17] MEDS: IPRATROPIUM-ALBUTEROL 3 ML NEB INHALATION SCH ×4 (08:06→20:25)
[2022-04-17] MEDS: FOLIC ACID 1 MG TAB PO SCH (08:26)
[2022-04-17] MEDS: POTASSIUM CHLORIDE ER 20 MEQ TAB.ER PO SCH (08:26)
[2022-04-17] MEDS: DOCUSATE 100 MG CAP PO SCH (08:26)
[2022-04-17] MEDS: HEPARIN SODIUM,PORCINE/PF 5,000 UNIT/0.5 ML SYRINGE SQ SCH ×2 (08:26→21:11)
[2022-04-17] MEDS: guaiFENesin 600 MG TABLET.ER PO SCH ×2 (08:27→21:13)
[2022-04-17] MEDS: FAMOTIDINE 20 MG TAB PO SCH (08:27)
[2022-04-17] MEDS: ISOSORBIDE MONONITRATE ER 30 MG TAB.ER.24H PO SCH (08:27)
[2022-04-17] MEDS: carvediloL 3.125 MG TAB PO SCH ×2 (08:27→16:59)
[2022-04-17] MEDS: BUMETANIDE 1 MG TAB PO SCH (08:27)
[2022-04-17] MEDS: MULTIVITAMINS, THERA 1 EACH TAB PO SCH (08:27)
[2022-04-17] MEDS: AZITHROMYCIN 500 MG in SODIUM CHLORIDE 0.9% 250 ML IVPB SCH (08:28)
--- NOTE | 2022-04-17 08:32 | XR ---
EXAMINATION TYPE: XR chest 1V portable DATE OF EXAM: 04/17/2022 COMPARISON: 04/14/2022 HISTORY: Shortness of breath TECHNIQUE: Single frontal view of the chest is obtained. FINDINGS: Postoperative change with tiny bilateral effusions. Coarsened interstitium suggests chroni c interstitial lung disease. Diffuse osteopenia throughout the shoulders. Widening of the left AC art nt noted poorly AC joint separation. Surgical clips in the right upper quadrant. IMPRESSION: Tiny bilateral pleural effusion or thickening with underlying chronic interstitial lung disease suspected.
[2022-04-17 10:53] LABS: Basophils # (A) 0.01 X 10*3/uL (0.00-0.10); Basophils % (A) 0.1 %; Eosinophils # (A) 0 X 10*3/uL (0.04-0.35); Eosinophils % (A) 0 %; HCT 29.9 % (37.2-46.3); HGB 9.8 g/dL (12.0-15.0); Immature Grans, Automated 0.7 %; Lymphocytes # (A) 0.53 X 10*3/uL (0.90-5.00); Lymphocytes % (A) 7.3 %; MCH 30.3 pg (27.0-32.0); MCHC 32.8 g/dL (32.0-37.0); MCV 92.6 fL (80.0-97.0); Mean Platelet Volume 11.6 fL (9.5-12.2); Monocytes % (A) 4.1 %; NRBC Per 100 WBC 0 /100 WBCS (0.0-0.0); Neutrophils # (A) 6.38 X 10*3/uL (1.80-7.70); Neutrophils % (A) 87.8 %; Platelet Count 193 X 10*3/uL (140-440); RBC 3.23 X 10*6/uL (4.10-5.20); RDW 16.2 % (11.5-14.5); WBC 7.27 X 10*3/uL (4.50-10.00)
--- NOTE | 2022-04-17 10:58 | P.PN ---
Subjective Progress Note Date: 04/17/22 Principal diagnosis: Dyspnea, weakness This is a 77-year-old white female patient with a past medical history rheumatoid arthritis on methotrexate, coronary artery disease with previous coronary artery bypass grafting in 2007, hypertension, hyperlipidemia, history of smoking, currently in remission, patient does carry [id number] smoking history, previous episode of pneumonia, who was brought into the hospital on 04/14/2022 by EMS for evaluation of generalized weakness for 5 days, patient had 2 or 3 falls at home with no injury. She said diminished appetite, she reports nausea and diarrhea for 5 days. Reports congested nonproductive cough, shortness of breath. She has mild lower extremity edema. Denied any chest pain, no hemoptysis, no abdominal pain, chest x-ray shows coarse lung markings, and possibility of pulmonary fibrosis or mild acute interstitial pneumonia. Laboratory evaluation showed white blood cell count of 12.3, hemoglobin of 11.4, coagulation profile was within normal limits, sodium is 136, serum electrolytes are within normal limits, BUN is 22, creatinine is 1.1, AST and ALT were mildly elevated at 48 and 40 respectively, alk phos was within normal limits at 84, troponin was 0.033, proBNP was 1240, urinalysis showed 1+ protein, trace keto pola, rare bacteria, COVID-19, influenza A and B were all negative. Patient was started on empiric antibiotics in the form of azithromycin and Rocephin for possibility of community acquired pneumonia, she was fluid resuscitated, she was given 1/2 L in fluids, currently IV 0.9 normal saline at [address] of abdomen and pelvis showed mild subsegmental atelectasis at the lung bases, no acute abnormality in the abdomen and pelvis. CT of the brain showed cerebral atrophy, no acute intracranial abnormality. On 04/16/2022 patient seen in follow-up on the medical floor. She remains weak and lethargic, she has poor cough, she has audible congestion, she is encouraged to do present cough however she states that she cannot clear the phlegm, lung sounds are positive for diffuse rhonchi, patient needs encouragement to take deep breaths and cough, she is on 2 L of oxygen pulse ox is 97%, afebrile. Continues on Rocephin and azithromycin for empiric antibiotic coverage. On 04/17/2022 patient is seen in follow-up on medical floor. Patient is feeling better today, she sounds clear today, with the exception of some mild crackles at the left base. Much less congested. Much more awake and conversant. On 2 L of oxygen her pulse ox of 98%, she is afebrile. Yesterday she developed sy mptomatic first-degree type II AV block, please refer to cardiology evaluation. She is having a repeat EKG. Beta vanna dose has been reduced. Blood pressure is stable. She remains on Rocephin, nebulized bronchodilators, and she received a few doses of IV Solu-Medrol. Objective - Vital Signs Vital signs: Vital Signs Temp 96 F L 04/17/22 08:15 Pulse 76 04/17/22 08:32 Resp 16 04/17/22 08:15 BP 148/72 04/17/22 08:15 Pulse Ox 98 04/17/22 08:15 FiO2 Intake & Output 04/16/22 04/17/22 04/17/22 18:59 06:59 18:59 Intake Total 950 250 Output Total 1200 Balance 950 -950 Intake: Intake, IV Titration 950 Amount Azithromycin 500 mg In 250 Sodium Chloride 0.9% 250 ml @ 250 mls/hr IVPB DAILY [facility] Rx#:[id number] Sodium Chloride 0.9% 1, 650 000 ml @ 75 mls/hr IV . [id number] [facility] Rx#:[id number] cefTRIAXone 1 gm In 50 Sodium Chloride 0.9% 50 ml @ 100 mls/hr IVPB HS [facility] Rx#:[id number] Oral 250 Output: Urine 1200 Straight 1200 Other: Voiding Method Indwelling Catheter Indwelling Catheter # Bowel Movements 1 - Exam GENERAL EXAM: Lethargic but arousable pleasant, 77-year-old white female, on 2 L of oxygen comfortable in no apparent distress. HEAD: Normocephalic/atraumatic. EYES: Normal reaction of pupils, equal size. Conjunctiva pink, sclera white. NOSE: Clear with pink turbinates. THROAT: No erythema or exudates. NECK: No masses, no JVD, no thyroid enlargement, no adenopathy. CHEST: No chest wall deformity. Symmetrical expansion. LUNGS: Equal air entry with diffuse rhonchi, week congested cough CVS: Regular rate and rhythm, normal S1 and S2, no gallops, no murmurs, no rubs ABDOMEN: Soft, nontender. No hepatosplenomegaly, normal bowel sounds, no guarding or rigidity. EXTREMITIES: No clubbing, mild pretibial edema, no cyanosis, 2+ pulses and upper and lower extremities. MUSCULOSKELETAL: Muscle strength and tone normal. SPINE: No scoliosis or deformity SKIN: No rashes CENTRAL NERVOUS SYSTEM: Alert and oriented -3. No focal deficits, tone is normal in all 4 extremities. PSYCHIATRIC: Alert and oriented -3. Appropriate affect. Intact judgment and insight. - Labs CBC & Chem 7: 04/15/22 06:17 04/15/22 06:17 Labs: Abnormal Lab Results - Last 24 Hours (Table) 04/16/22 04/16/22 Range/Units 19:59 23:31 POC Glucose (mg/dL) 273 H 228 H (70-110) mg/dL Microbiology - Last 24 Hours (Table) 04/14/22 16:10 Blood Culture - Preliminary Blood No Growth after 48 hours 04/14/22 16:05 Blood Culture - Preliminary Blood No Growth after 48 hours Assessment and Plan Plan: Assessment: #1. Acute hypoxic respiratory failure related to possibility of interstitial infiltrate, possibly related to community acquired pneumonia, interstitial edema, possibility of pulmonary fibrosis is not excluded #2. Previous history of pneumonia #3. Vomiting, diarrhea, generalized weakness #4. History of smoking, currently in remission, patient carries a [id number] smoking history #5. Hypertension #6. Hyperlipidemia #7. Coronary artery disease with previous bypass grafting in 2007 #8. Rheumatoid arthritis on methotrexate #9. Osteoarthritis #10. Chronic low back pain #11. Anxiety #12. Depression Plan: Clinically patient is improving Today's follow-up chest x-ray has been reviewed showing some improvement, but persistent coarsened interstitium suggesting pulmonary fibrosis, We can stop the IV steroids, continue with nebulized bronchodilators Continue antibiotics Patient will need outpatient follow-up, and will be worked up for possibility of underlying interstitial lung disease I have personally seen and examined the patient, performed the documentation and the assessment and plan as written. Number of minutes spent on the visit: [15] Time with Patient: Less than 30
[2022-04-17 11:12] LABS: ALT 40 U/L (8-44); AST 39 U/L (13-35); African American GFR (CKD) 56.5 (60.0-200.0); Albumin 3.2 g/dL (3.8-4.9); Albumin/Globulin Ratio 1.39 (1.60-3.17); Alkaline Phosphatase 60 U/L (41-126); BUN/Creat Ratio 21.09 Ratio (12.00-20.00); Bilirubin, Conjugated <0.20 mg/dL (0.20-0.40); Blood Urea Nitrogen 23.2 mg/dL (9.0-27.0); Calcium 9.6 mg/dL (8.7-10.3); Carbon Dioxide 21.3 mmol/L (20.0-27.5); Chloride 104 mmol/L (96-109); Globulin 2.3 g/dL (1.6-3.3); Glucose 196 mg/dL (70-110); Magnesium 2.1 mg/dL (1.5-2.4); Non-African American GFR(CKD) 48.7 (60.0-200.0); Sodium 136 mmol/L (135-145); Total Protein 5.5 g/dL (6.2-8.2)
--- NOTE | 2022-04-17 13:11 | P.PN ---
Subjective Progress Note Date: 04/17/22 This is a pleasant 77-year-old female patient who follows in the office with Dr. Martinez. Has a history of CAD status post coronary artery bypass grafting in 2007, hypertension, hyperlipidemia, prior nicotine dependence, rheumatoid arthritis and prior pneumonia. She presented to the emergency department with generalized weakness for 5 days and had fallen at home 2 or 3 times. She does admit to having some dizziness at times. She's also been having a decreased appetite and reports of nausea and diarrhea for 5 days prior to admission as well as a nonproductive congested cough and shortness of breath as well as lower extremity edema. She's been admitted with acute hypoxic respiratory failure related to possibility of interstitial infiltrates possibly related to community-acquired pneumonia, interstitial edema, possibility of pulmonary fibrosis not excluded. She has been febrile at times with a T-max of 100.9F. We were asked to the patient in consultation for possible arrhythmia and first-degree AV block. Upon reviewing EKGs when EKG did show sinus mechanism with first-degree AV block and another showed evidence of second-degree type I AV block. She is currently on carvedilol 6.25 mg by mouth twice a day. On admission NT proBNP was 1240. Initial hemoglobin 11.4 with a subsequent hemoglobin yesterday of 9.6. Overall she's feeling somewhat better. Continues to complain of dizziness at times. Also at times feels that she may pass out. There are no real aggravating factors leading up to this. The episodes occur randomly. 04/17/2022 The patient was seen and examined this morning resting comfortably in bed. She says overall she is feeling a bit better. She feels her breathing is better. She denies any further complaints of dizziness or lightheadedness. Continues to have evidence of episodes of Wenckebach on telemetry and at times a poor baseline with an irregular rhythm. Heart rates have been fairly well-controlled with the lowest heart rate documented through the night while sleeping in the high 40s. Heart rate has been normal while awake. Echocardiogram with Doppler study showed low normal LV systolic function with an ejection fraction of 50-55% with moderate mitral, aortic and tricuspid regurgitation. Objective - Vital Signs Vital signs: Vital Signs Temp 96 F L 04/17/22 08:15 Pulse 76 04/17/22 08:32 Resp 16 08/24/22 08:15 BP 148/72 04/17/22 08:15 Pulse Ox 98 04/17/22 08:15 FiO2 Intake & Output 04/16/22 04/17/22 04/17/22 18:59 06:59 18:59 Intake Total 950 250 Output Total 1200 Balance 950 -950 Intake: Intake, IV Titration 950 Amount Azithromycin 500 mg In 250 Sodium Chloride 0.9% 250 ml @ 250 mls/hr IVPB DAILY [facility] Rx#:[id number] Sodium Chloride 0.9% 1, 650 000 ml @ 75 mls/hr IV . [id number] [facility] Rx#:[id number] cefTRIAXone 1 gm In 50 Sodium Chloride 0.9% 50 ml @ 100 mls/hr IVPB HS [facility] Rx#:[id number] Oral 250 Output: Urine 1200 Straight 1200 Other: Voiding Method Indwelling Catheter Indwelling Catheter # Bowel Movements 1 - Exam HEENT: Head is atraumatic, normocephalic. Pupils are equal, round. Sclerae anicteric. Conjunctivae are clear. Mucous membranes of the mouth are moist. Neck is supple. There is no elevated jugular venous pressure. No carotid bruit is heard. CHEST EXAMINATION: Lungs revealed bibasilar crackles and scattered rhonchi that cleared with coughing. No wheezes. Respirations even and nonlabored. HEART EXAMINATION: Heart regular, positive S1 and S2. No S3. No S4. No clicks, rubs or murmurs. ABDOMEN: Soft, nontender. Bowel sounds are heard. No organomegaly noted. EXTREMITIES: 2+ peripheral pulses with no evidence of peripheral edema and no calf tenderness noted. NEUROLOGIC EXAMINATION: Patient is awake, alert and oriented x3. - Labs CBC & Chem 7: 04/17/22 07:00 04/17/22 07:00 Labs: Abnormal Lab Results - Last 24 Hours (Table) 04/16/22 04/16/22 Range/Units 19:59 23:31 POC Glucose (mg/dL) 273 H 228 H (70-110) mg/dL Microbiology - Last 24 Hours (Table) 04/14/22 16:10 Blood Culture - Preliminary Blood No Growth after 48 hours 04/14/22 16:05 Blood Culture - Preliminary Blood No Growth after 48 hours Assessment and Plan Assessment: #1 acute hypoxic respiratory failure #2 intermittent second-degree type I AV block #3 CAD status post CABG in 2007 #4 hypertension #5 hyperlipidemia #6 prior nicotine dependence #7 rheumatoid arthritis Plan: From cardiology's perspective we will obtain an EKG to verify rhythm. We will continue to follow the patient throughout this admission and provide further recommendations accordingly. PRINTING SCREEN ASSEMBLER note has been reviewed, I agree with a documented findings and plan of care. Patient was seen and examined.
[2022-04-17] MEDS: PREGABALIN 100 MG CAP PO SCH ×2 (13:24→21:11)
--- NOTE | 2022-04-17 14:11 | P.PN ---
Progress Note - Text Progress Note Date: 04/17/22 Interval History: Patient was seen resting in bed and was directable and agreeable to speak with medical technical writer in her room. Currently, the patient is not reporting any suicidal or homicidal ideation, intention,/or plan. She denies any auditory or visual hallucinations. She reports no paranoia or other delusions. The patient reports good sleep and an improvement in appetite. She states that she is feeling overall better. She reports no psychiatric and shoes or concerns today. She reports no significant side effects for medications Mental Status Exam: General Appearance: Patient appears to be stated age and is alert and cooperative. Obese body habitus. Behavior: Patient is calmly seated without any agitated behavior. Speech: Patient's speech is fluent and nonpressured. Mood/Affect: Mood is improving mildly affect is congruent and euthymic Suicidality/Homicidality: Patient denies having any suicidal or homicidal ideation intent or plan. Perceptions: Patient denies any visual hallucinations and denies any auditory hallucinations Though content/process: There is no evidence of any delusional thought content and thought process is linear and goal-directed. Memory and concentration: AOX3, grossly intact for the purposes of this session Judgment and insight: Improving mildly Vital Signs Temp 96 F L 04/17/22 08:15 Pulse 72 04/17/22 11:21 Resp 16 04/17/22 08:15 BP 148/72 04/17/22 08:15 Pulse Ox 98 04/17/22 08:15 FiO2 Intake & Output 04/16/22 04/17/22 04/17/22 18:59 06:59 18:59 Intake Total 950 250 Output Total 1200 Balance 950 -950 Intake: Intake, IV Titration 950 Amount Azithromycin 500 mg In 250 Sodium Chloride 0.9% 250 ml @ 250 mls/hr IVPB DAILY [facility] Rx#:[id number] Sodium Chloride 0.9% 1, 650 000 ml @ 75 mls/hr IV . [id number] [facility] Rx#:[id number] cefTRIAXone 1 gm In 50 Sodium Chloride 0.9% 50 ml @ 100 mls/hr IVPB HS [facility] Rx#:[id number] Oral 250 Output: Urine 1200 Straight 1200 Other: Voiding Method Indwelling Catheter Indwelling Catheter Indwelling Catheter # Bowel Movements 1 Laboratory Results - Last 24 Hours 04/16/22 04/16/22 04/17/22 19:59 23:31 07:00 WBC RBC Hgb Hct MCV MCH MCHC RDW Plt Count MPV Immature Gran % (Auto) Absolute Nucleated RBC Neutrophils % Lymphocytes % Monocytes % Eosinophils % Basophils % Immature Gran # Neutrophils # Lymphocytes # Monocytes # Eosinophils # Basophils # NRBC/100 WBC Diff Sodium Potassium Chloride Carbon Dioxide Anion Gap BUN Creatinine Est GFR (CKD-EPI)AfAm Est GFR (CKD-EPI)NonAf BUN/Creatinine Ratio Glucose POC Glucose (mg/dL) 273 H 228 H POC Glu Counsellors ID Dariusz, Gabriela Tai, Maria Doloreselyroz Calcium Magnesium Total Bilirubin Conjugated Bilirubin Unconjugated Bilirubin AST ALT Alkaline Phosphatase Total Protein Albumin Globulin Albumin/Globulin Ratio Procalcitonin 0.72 H 04/17/22 04/17/22 07:00 07:00 WBC 7.27 RBC 3.23 L Hgb 9.8 L Hct 29.9 L MCV 92.6 MCH 30.3 MCHC 32.8 RDW 16.2 H Plt Count 193 MPV 11.6 Immature Gran % (Auto) 0.7 Absolute Nucleated RBC 0 Neutrophils % 87.8 Lymphocytes % 7.3 Monocytes % 4.1 Eosinophils % 0 Basophils % 0.1 Immature Gran # 0.05 H Neutrophils # 6.38 Lymphocytes # 0.53 L Monocytes # 0.30 Eosinophils # 0 L Basophils # 0.01 NRBC/100 WBC Diff 0 Sodium 136 Potassium 4.0 Chloride 104 Carbon Dioxide 21.3 Anion Gap 10.70 BUN 23.2 Creatinine 1.1 Est GFR (CKD-EPI)AfAm 56.5 L Est GFR (CKD-EPI)NonAf 48.7 L BUN/Creatinine Ratio 21.09 H Glucose 196 H POC Glucose (mg/dL) POC Glu Counsellors ID Calcium 9.6 Magnesium 2.1 Total Bilirubin 0.20 L Conjugated Bilirubin <0.20 L Unconjugated Bilirubin AST 39 H ALT 40 Alkaline Phosphatase 60 Total Protein 5.5 L Albumin 3.2 L Globulin 2.3 Albumin/Globulin Ratio 1.39 L Procalcitonin Assessment Major depressive disorder Acute bilateral interstitial pneumonia Mild sepsis with Fever, with mild leukocytosis Hypoxia Plan: -Continue your medical management -At this time patient DOES NOT meet criteria for inpatient psychiatric admission. -Delirium precautions recommended with patient including - avoiding use of narcotics and [employer] sedatives, limit anticholinergic medications when possible, frequent re-orientation, minimize use of restraints, open window shades during the day and close them at night -Would recommend the following medication changes/additions: Continue Remeron 7.5 mg by mouth at bedtime to address depression -Psychiatry will sign off at this time. Patient is cleared psychiatrically for discharge. Recommend outpatient follow-up.
[2022-04-17] MEDS: SODIUM CHLORIDE 0.9% 1,000 ML IV SCH ×2 (17:58→22:16)
--- NOTE | 2022-04-17 20:50 | P.PN ---
Subjective This is a pleasant 77 years old female with past medical history of Coronary Artery Disease status post triple-vessel bypass, Hyperlipidemia, Hypertension, Osteoarthritis , urinary incontinence, rhematoid arthritis, Anxiety, Depression, chronic kidney disease stage III. PCP is Dr. Russ, also she sees Dr. Rodriguez as outpatient Patient presents because of generalized weakness. Patient states that she came because she has no energy for the last 3-4 days and and she fell at home about 2 days ago when she felt dizzy and fell to the ground with no residual trauma as she states. She complains from her breathing little labored for the last 34 days associated with cough and phlegm but nothing is coming up as she describes. Line she denies chest pain or abdominal pain. However she has 3-4 bouts of diarrhea daily over the last 3-4 days. No nausea vomiting but she has low appetite. She denies dysuria or urgency. No headache or dizziness. No weakness or numbness. She quit smoking in 2007, she denies alcohol or illicit drugs In the emergency room she had fever of 100.5. Recent vitals are stable and she is saturating 97% on room air, later on she was saturating 92-94% on 2 L Labs showing mild leukocytosis of 12.3, and 9.5. Hemoglobin 9.6. Platelet count 160. INR is 1.1. BMP shows sodium 136, creatinine 1.1, which is at baseline. ProBNP is 1240. Troponin 0.033. Liver enzymes slightly elevated with AST 48 and ALT 40 Urine analysis: Nonsuspicious of infection Coronavirus, and influenza virus is are undetected EKG showing normal sinus rhythm at [address]-T changes CT of the abdomen and pelvis with contrast: Second-degree L4-5 spondylolisthesis with spinal stenosis. No acute fracture seen. Mild subsegmental atelectasis of the lung bases. No acute abnormality in the abdomen and pelvis CT of the brain: No acute intracranial lesions. Chest x-ray: Coarse lung markings suggestive of pulmonary fibrosis. No obvious heart failure. Mild acute interstitial pneumonia not exclude it. Lung markings increased compared to old exam Possible bilateral interstitial community-acquired pneumonia In the emergency room patient received IV fluids and Zithromax/ceftriaxone and she was admitted with pulmonary and psych consult 04/16/2022 patient states today her breathing is slightly better she still has weak cough and hard for her to cough, incentive spirometry has been admitted for her. She has little or no nausea or vomiting today, she had some pudding but she has normal bowel movement. She is saturating 92% on 2 L oxygen No labs from today. She remains on Zithromax, ceftriaxone, normal saline 75 mL/h, Solu-Medrol 40 mg IV daily Coreg lower today to 3.125 because of intermittent second degree heart block 04/17/2022 Patient has better strength today stronger cough and she still reports improvement regarding her breathing. She is less wheezing. She SHE ate her oatmeal this morning and tolerates diet well. She has normal bowel movements Oxygen saturation on 2 L/m She's continued on antibiotic with ceftriaxone. Other medication start by pu onary service including Solu-Medrol, Zithromax. She continue normal saline 75 mL/h She agrees to go to subacute rehab upon discharge We'll discontinue Navarrete catheter and check postvoid residual Objective - Vital Signs Vital signs: Vital Signs Temp 97.4 F L 04/17/22 19:42 Pulse 76 04/17/22 20:38 Resp 17 04/17/22 19:42 BP 142/80 04/17/22 19:42 Pulse Ox 98 04/17/22 20:25 FiO2 Intake & Output 04/17/22 04/17/22 04/18/22 06:59 18:59 06:59 Intake Total 250 600 Output Total 1200 Balance -950 600 Intake: Intake, IV Titration 600 Amount Sodium Chloride 0.9% 1, 600 000 ml @ 75 mls/hr IV . [id number] [facility] Rx#:[id number] Oral 250 Output: Urine 1200 Straight 1200 Other: Voiding Method Indwelling Catheter Indwelling Catheter Indwelling Catheter - Exam GENERAL: The patient is alert and oriented x3, not in any acute distress. Well developed, well nourished. HEENT: Pupils are round and equally reacting to light. EOMI. No scleral icterus. No conjunctival pallor. Normocephalic, atraumatic. No pharyngeal erythema. No thyromegaly. CARDIOVASCULAR: S1 and S2 present. No murmurs, rubs, or gallops. -PULMONARY: Chest is clear to auscultation, scattered wheezing ABDOMEN: Soft, nontender, nondistended, normoactive bowel sounds. No palpable organomegaly. MUSCULOSKELETAL: No joint swelling or deformity. EXTREMITIES: No cyanosis, clubbing, or pedal edema. NEUROLOGICAL: Gross neurological examination did not reveal any focal deficits. SKIN: No rashes. no petechiae. - Labs CBC & Chem 7: 04/17/22 07:00 04/17/22 07:00 Labs: Abnormal Lab Results - Last 24 Hours (Table) 04/16/22 04/17/22 04/17/22 Range/Units 23:31 07:00 07:00 RBC 3.23 L (4.10-5.20) X 10*6/uL Hgb 9.8 L (12.0-15.0) g/dL Hct 29.9 L (37.2-46.3) % RDW 16.2 H (11.5-14.5) % Immature Gran # 0.05 H (0.00-0.04) X 10*3/uL Lymphocytes # 0.53 L (0.90-5.00) X 10*3/uL Eosinophils # 0 L (0.04-0.35) X 10*3/uL Est GFR (CKD-EPI)AfAm (60.0-200.0) Est GFR (CKD-EPI)NonAf (60.0-200.0) BUN/Creatinine Ratio (12.00-20.00) Ratio Glucose (70-110) mg/dL POC Glucose (mg/dL) 228 H (70-110) mg/dL Total Bilirubin (0.30-1.20) mg/dL Conjugated Bilirubin (0.20-0.40) mg/dL AST (13-35) U/L Total Protein (6.2-8.2) g/dL Albumin (3.8-4.9) g/dL Albumin/Globulin Ratio (1.60-3.17) g/dL Procalcitonin 0.72 H (0.02-0.09) ng/mL 04/17/22 Range/Units 07:00 RBC (4.10-5.20) X 10*6/uL Hgb (12.0-15.0) g/dL Hct (37.2-46.3) % RDW (11.5-14.5) % Immature Gran # (0.00-0.04) X 10*3/uL Lymphocytes # (0.90-5.00) X 10*3/uL Eosinophils # (0.04-0.35) X 10*3/uL Est GFR (CKD-EPI)AfAm 56.5 L (60.0-200.0) Est GFR (CKD-EPI)NonAf 48.7 L (60.0-200.0) BUN/Creatinine Ratio 21.09 H (12.00-20.00) Ratio Glucose 196 H (70-110) mg/dL POC Glucose (mg/dL) (70-110) mg/dL Total Bilirubin 0.20 L (0.30-1.20) mg/dL Conjugated Bilirubin <0.20 L (0.20-0.40) mg/dL AST 39 H (13-35) U/L Total Protein 5.5 L (6.2-8.2) g/dL Albumin 3.2 L (3.8-4.9) g/dL Albumin/Globulin Ratio 1.39 L (1.60-3.17) g/dL Procalcitonin (0.02-0.09) ng/mL Microbiology - Last 24 Hours (Table) 04/14/22 16:10 Blood Culture - Preliminary Blood No Growth after 72 hours 04/14/22 16:05 Blood Culture - Preliminary Blood No Growth after 72 hours Assessment and Plan Assessment: Acute bilateral interstitial pneumonia Mild acute hypoxic respiratory failure Mild sepsis with Fever, with mild leukocytosis Mechanical fall without syncope Acute gastroenteritis, most likely reactive. Rule out C. diff negative diarrhea. anxiety and depression Intermittent second-degree AV block Hypertension Hyperlipidemia Chronic kidney disease stage III History of osteoarthritis History of urinary incontinence History of coronary artery disease status post bypass procedure. Anemia Plan: This is a pleasant 77 years old female who presents with bilateral pneumonia, mild hypoxia and sepsis. Continue with ceftriaxone Continue with normal saline Follow up with psychiatrist for depression . Patient is on Remeron DC steroids monitor heart rate Labs and medication were reviewed.. Continue same treatment. Continue with symptomatic treatment. Resume home medication. Monitor lytes and vitals. DVT and GI prophylaxis. Further recommendations as per clinical course of the patient DVT prophylaxis: Subcutaneous heparin GI Prophylaxis: Pepcid PT/OT: [facility] Possible discharge in 24-48 hours
[2022-04-17] MEDS: ASPIRIN 81 MG PO SCH (21:11)
[2022-04-17] MEDS: MIRTAZAPINE 15 MG TAB PO SCH (21:13)
[2022-04-18] MEDS: IPRATROPIUM-ALBUTEROL 3 ML NEB INHALATION SCH ×4 (07:33→19:09)
[2022-04-18] MEDS: guaiFENesin 600 MG TABLET.ER PO SCH ×2 (10:04→21:17)
[2022-04-18] MEDS: carvediloL 3.125 MG TAB PO SCH ×2 (10:04→17:38)
[2022-04-18] MEDS: ISOSORBIDE MONONITRATE ER 30 MG TAB.ER.24H PO SCH (10:04)
[2022-04-18] MEDS: HEPARIN SODIUM,PORCINE/PF 5,000 UNIT/0.5 ML SYRINGE SQ SCH ×2 (10:04→21:15)
[2022-04-18] MEDS: FOLIC ACID 1 MG TAB PO SCH (10:04)
[2022-04-18] MEDS: POTASSIUM CHLORIDE ER 20 MEQ TAB.ER PO SCH (10:05)
[2022-04-18] MEDS: MULTIVITAMINS, THERA 1 EACH TAB PO SCH (10:05)
[2022-04-18] MEDS: FAMOTIDINE 20 MG TAB PO SCH (10:05)
[2022-04-18] MEDS: DOCUSATE 100 MG CAP PO SCH (10:05)
[2022-04-18] MEDS: BUMETANIDE 1 MG TAB PO SCH (10:06)
--- NOTE | 2022-04-18 11:20 | P.PN ---
Subjective Progress Note Date: 04/18/22 HISTORY OF PRESENT ILLNESS: This is a pleasant 77-year-old female patient who follows in the office with Dr. Martinez. Has a history of CAD status post coronary artery bypass grafting in 2007, hypertension, hyperlipidemia, prior nicotine dependence, rheumatoid arthritis and prior pneumonia. She presented to the emergency department with generalized weakness for 5 days and had fallen at home 2 or 3 times. She does admit to having some dizziness at times. She's also been having a decreased appetite and reports of nausea and diarrhea for 5 days prior to admission as well as a n onproductive congested cough and shortness of breath as well as lower extremity edema. She's been admitted with acute hypoxic respiratory failure related to possibility of interstitial infiltrates possibly related to community-acquired pneumonia, interstitial edema, possibility of pulmonary fibrosis not excluded. She has been febrile at times with a T-max of 100.9F. We were asked to the patient in consultation for possible arrhythmia and first-degree AV block. Upon reviewing EKGs when EKG did show sinus mechanism with first-degree AV block and another showed evidence of second-degree type I AV block. She is currently on carvedilol 6.25 mg by mouth twice a day. On admission NT proBNP was 1240. Initial hemoglobin 11.4 with a subsequent hemoglobin yesterday of 9.6. Overall she's feeling somewhat better. Continues to complain of dizziness at times. Also at times feels that she may pass out. There are no real aggravating factors leading up to this. The episodes occur randomly. 04/17/2022 The patient was seen and examined this morning resting comfortably in bed. She says overall she is feeling a bit better. She feels her breathing is better. She denies any further complaints of dizziness or lightheadedness. Continues to have evidence of episodes of Wenckebach on telemetry and at times a poor baseline with an irregular rhythm. Heart rates have been fairly well-controlled with the lowest heart rate documented through the night while sleeping in the high 40s. Heart rate has been normal while awake. Echocardiogram with Doppler study showed low normal LV systolic function with an ejection fraction of 50-55% with moderate mitral, aortic and tricuspid regurgitation. 04/18/2022 Patient examined this morning at the bedside. Patient denies chest pain or pressure. Denies SOB. She denies dizziness or lightheadedness. She reports she was up to the bathroom once without difficulty. She reports a productive cough this morning. Telemetry reveals sinus mechanism with some irregularities at times. EKG obtained yesterday reveealed second degree type I AV block. PHYSICAL EXAM: VITAL SIGNS: Reviewed. GENERAL: Well-developed in no acute distress. NECK: Supple. No JVD or thyromegaly LUNGS: Respirations even and unlabored. Lungs with rhonchi bilaterally and a few scattered crackles. HEART: Regular rate and rhythm. S1 and S2 heard. EXTREMITIES: Normal range of motion. No clubbing or cyanosis. Peripheral pulses intact. No lower extremity edema ASSESSMENT: #1 acute hypoxic respiratory failure #2 intermittent second-degree type I AV block #3 CAD status post CABG in 2007 #4 hypertension #5 hyperlipidemia #6 prior nicotine dependence #7 rheumatoid arthritis PLAN: Continue telemetry monitoring Continue current cardiac medications Further recommendations pending patient course Nurse practitioner note has been reviewed by physician. Signing provider agrees with the documented findings, assessment, and plan of care. Objective - Vital Signs Vital signs: Vital Signs Temp 97.5 F L 04/18/22 08:00 Pulse 70 04/18/22 11:09 Resp 16 04/18/22 08:00 BP 87/59 04/18/22 08:00 Pulse Ox 97 04/18/22 08:00 FiO2 Intake & Output 04/17/22 04/18/22 04/18/22 18:59 06:59 18:59 Intake Total 600 Output Total 1650 300 Balance 600 -1650 -300 Intake: Intake, IV Titration 600 Amount Sodium Chloride 0.9% 1, 600 000 ml @ 75 mls/hr IV . [id number] [facility] Rx#:[id number] Output: Urine 1650 300 Other: Voiding Method Indwelling Catheter Indwelling Catheter Indwelling Catheter - Labs CBC & Chem 7: 04/17/22 07:00 04/17/22 07:00 Labs: Abnormal Lab Results - Last 24 Hours (Table) 04/17/22 Range/Units 07:00 Procalcitonin 0.72 H (0.02-0.09) ng/mL Microbiology - Last 24 Hours (Table) 04/14/22 16:10 Blood Culture - Preliminary Blood No Growth after 72 hours 04/14/22 16:05 Blood Culture - Preliminary Blood No Growth after 72 hours
--- NOTE | 2022-04-18 12:18 | P.PN ---
Subjective Progress Note Date: 04/18/22 Principal diagnosis: Shortness of breath. This is a 77-year-old white female patient with a past medical history rheumatoid arthritis on methotrexate, coronary artery disease with previous coronary artery bypass grafting in 2007, hypertension, hyperlipidemia, history of smoking, currently in remission, patient does carry [id number] smoking history, previous episode of pneumonia, who was brought into the hospital on 04/14/2022 by EMS for evaluation of generalized weakness for 5 days, patient had 2 or 3 falls at home with no injury. She said diminished appetite, she reports nausea and diarrhea for 5 days. Reports congested nonproductive cough, shortness of breath. She has mild lower extremity edema. Denied any chest pain, no hemoptysis, no abdominal pain, chest x-ray shows coarse lung markings, and possibility of pulmonary fibrosis or mild acute interstitial pneumonia. Laboratory evaluation showed white blood cell count of 12.3, hemoglobin of 11.4, coagulation profile was within normal limits, sodium is 136, serum electrolytes are within normal limits, BUN is 22, creatinine is 1.1, AST and ALT were mildly elevated at 48 and 40 respectively, alk phos was within normal limits at 84, troponin was 0.033, proBNP was 1240, urinalysis showed 1+ protein, trace k etones, rare bacteria, COVID-19, influenza A and B were all negative. Patient was started on empiric antibiotics in the form of azithromycin and Rocephin for possibility of community acquired pneumonia, she was fluid resuscitated, she was given 1/2 L in fluids, currently IV 0.9 normal saline at [address] of abdomen and pelvis showed mild subsegmental atelectasis at the lung bases, no a cute abnormality in the abdomen and pelvis. CT of the brain showed cerebral atrophy, no acute intracranial abnormality. On 04/16/2022 patient seen in follow-up on the medical floor. She remains weak and lethargic, she has poor cough, she has audible congestion, she is encouraged to do present cough however she states that she cannot clear the phlegm, lung sounds are positive for diffuse rhonchi, patient needs encouragement to take deep breaths and cough, she is on 2 L of oxygen pulse ox is 97%, afebrile. Continues on Rocephin and azithromycin for empiric antibiotic coverage. On 04/17/2022 patient is seen in follow-up on medical floor. Patient is feeling better today, she sounds clear today, with the exception of some mild crackles at the left base. Much less congested. Much more awake and conversant. On 2 L of oxygen her pulse ox of 98%, she is afebrile. Yesterday she developed symptomatic first-degree type II AV block, please refer to cardiology evaluation. She is having a repeat EKG. Beta vanna dose has been reduced. Blood pressure is stable. She remains on Rocephin, nebulized bronchodilators, and she received a few doses of IV Solu-Medrol. Progress note dated 04/18/2022. The patient is again seen today in room 462. She sitting up in the chair. She is on 2 L of nasal oxygen. Is getting saline 20 mL an hour she is feeling much better. Her cough is looser, and she is much less congested. No new lab data today. From yesterday, her white count was 7.27, hemoglobin 9.8, and platelet count 293,000. Her electrolyte profile is relatively normal with a creatinine of 1.1. Her pro-calcitonin level was 0.72. Blood cultures were negative. Chest x-ray showed tiny bilateral pleural effusions and underlying chronic interstitial lung disease. Objective - Vital Signs Vital signs: Vital Signs Temp 97.5 F L 04/18/22 08:00 Pulse 70 04/18/22 11:09 Resp 16 04/18/22 08:00 BP 87/59 04/18/22 08:00 Pulse Ox 97 04/18/22 08:00 FiO2 Intake & Output 04/17/22 04/18/22 04/18/22 18:59 06:59 18:59 Intake Total 600 Output Total 1650 300 Balance 600 -1650 -300 Intake: Intake, IV Titration 600 Amount Sodium Chloride 0.9% 1, 600 000 ml @ 75 mls/hr IV . [id number] [facility] Rx#:[id number] Output: Urine 1650 300 Other: Voiding Method Indwelling Catheter Indwelling Catheter Indwelling Catheter - Exam No acute distress, oriented 3. Currently on 2 L. No conversational dyspnea or use of accessory muscles. HEENT examination is grossly unremarkable. Neck supple. Full range of motion. No adenopathy thyromegaly or neck vein distention. Cardiovascular examination reveals regular rhythm rate. S1-S2 normal. No S3 or S4. No discernible murmur noted. Heart rate 70 bpm. Lungs reveal scattered bilateral rhonchi. No wheezes. No crackles. Breath sounds equal bilaterally. Saturations are 97%. Abdomen soft bowel sounds are heard. No masses or tenderness. Extremities are intact. No cyanosis clubbing or edema. Skin is without rash or lesion. Neurologic examination is brief but nonfocal. - Labs CBC & Chem 7: 04/17/22 07:00 04/17/22 07:00 Labs: Microbiology - Last 24 Hours (Table) 04/14/22 16:10 Blood Culture - Preliminary Blood No Growth after 72 hours 04/14/22 16:05 Blood Culture - Preliminary Blood No Growth after 72 hours Assessment and Plan Assessment: Acute hypoxemic respiratory failure secondary to interstitial edema, interstitial lung disease, or atypical/interstitial pneumonia. Prior history of pneumonia. Vomiting/diarrhea/generalized weakness. History of tobacco use. History of hypertension. History of hyperlipidemia. CAD/CABG, 2007. Rheumatoid arthritis. Osteoarthritis. Chronic low back pain. Anxiety/depression. Plan: Plan dated 04/18/2022. Currently, the patient's doing much better. She is currently on 2 L of oxygen. She's receiving saline at 30 mL an hour. She sitting up in the chair. On coughing, she does not a bit congested. She does have a bedside flutter valve, incentive spirometer. We encourage them to be used by her, on a regular basis. She states that she may be discharged to rehab facility. Labs, x-rays, and medications are reviewed. She remains on Rocephin. Yesterday, she requested that we stop her corticosteroids, and we did. Time with Patient: Less than 30
[2022-04-18] MEDS: PREGABALIN 100 MG CAP PO SCH ×2 (14:33→21:16)
[2022-04-18] MEDS: SODIUM CHLORIDE 0.9% 1,000 ML IV SCH (14:34)
[2022-04-18] MEDS: ASPIRIN 81 MG PO SCH (21:15)
[2022-04-18] MEDS: MIRTAZAPINE 15 MG TAB PO SCH (21:17)
[2022-04-19] MEDS: SODIUM CHLORIDE 0.9% 1,000 ML IV SCH ×2 (03:18→12:52)
[2022-04-19] MEDS: IPRATROPIUM-ALBUTEROL 3 ML NEB INHALATION SCH ×4 (08:08→21:14)
[2022-04-19] MEDS: guaiFENesin 600 MG TABLET.ER PO SCH ×2 (09:38→22:11)
[2022-04-19] MEDS: FOLIC ACID 1 MG TAB PO SCH (09:39)
[2022-04-19] MEDS: carvediloL 3.125 MG TAB PO SCH ×2 (09:39→17:13)
[2022-04-19] MEDS: ISOSORBIDE MONONITRATE ER 30 MG TAB.ER.24H PO SCH (09:39)
[2022-04-19] MEDS: BUMETANIDE 1 MG TAB PO SCH (09:39)
[2022-04-19] MEDS: MULTIVITAMINS, THERA 1 EACH TAB PO SCH (09:39)
[2022-04-19] MEDS: DOCUSATE 100 MG CAP PO SCH (09:39)
[2022-04-19] MEDS: FAMOTIDINE 20 MG TAB PO SCH (09:39)
[2022-04-19] MEDS: HEPARIN SODIUM,PORCINE/PF 5,000 UNIT/0.5 ML SYRINGE SQ SCH ×2 (09:39→22:08)
[2022-04-19] MEDS: POTASSIUM CHLORIDE ER 20 MEQ TAB.ER PO SCH (09:40)
--- NOTE | 2022-04-19 12:26 | P.DS ---
Providers Date of admission: 04/14/22 21:49 Attending physician: Kat Lopez MD Consults: 04/14/22 21:35 Consult Physician Routine Consulting Provider: Whit Sadler Consult Reason/Comments: shortness of breath, pulmonary fibrosis, pneumonia Do you want consulting provider notified?: Yes, Notify in am 04/14/22 21:43 Consult Physician Routine Consulting Provider: Ren Ford Consult Reason/Comments: Depression, Anxiety, Aggressive behaviors with spous e Do you want consulting provider notified?: Already Contacted Primary care physician: Romario Russ [facility] Course: Diagnoses: Acute bilateral interstitial pneumonia Mild acute hypoxic respiratory failure Mild sepsis with Fever, with mild leukocytosis Mechanical fall without syncope Acute gastroenteritis, most likely reactive. Rule out C. diff negative diarrhea. anxiety and depression Intermittent second-degree AV block Hypertension Hyperlipidemia Chronic kidney disease stage III History of osteoarthritis History of urinary incontinence History of coronary artery disease status post bypass procedure. Anemia Hospital course: This is a pleasant 77 years old female with past medical history of Coronary Artery Disease status post triple-vessel bypass, Hyperlipidemia, Hypertension, Osteoarthritis , urinary incontinence, rhematoid arthritis, Anxiety, Depression, chronic kidney disease stage III. PCP is Dr. Russ, also she sees Dr. Rodriguez as outpatient Patient presents because of generalized weakness. Patient states that she came because she has no energy for the last 3-4 days and and she fell at home about 2 days ago when she felt dizzy and fell to the ground with no residual trauma as she states. She complains from her breathing little labored for the last 34 days associated with cough and phlegm but nothing is coming up as she describes. Patient was found to have bilateral interstitial pneumonia. And hypoxia and she's been evaluated by pulmonary and cardiology service and she's been treated with cef triaxone and IV fluid and Solu-Medrol, patient showed interval improvement, steroids was stopped upon patient request. Today she was breathing easier and she was saturating 93% on 3 L oxygen via nasal cannula. She denies any chest pain, no change and abdominal habits, no abdominal pain or vomiting or diarrhea. No fever. No significant urinary complaints. Patient feels she can be discharged today as well Paper Tester saw the patient for intermittent second-degree heart block, patient remained asymptomatic, dose of Coreg was lowered 6.25 mg down to 3.125 mg. Patient was cleared for discharge by both cardiology and pulmonary teams Problems and management plan were discussed with the patient and he verbalized understanding and acceptance Patient was found stable and can be discharged to [facility] for subacute rehab in guarded prognosis however he needs follow-up as an outpatient. Patient was instructed to follow up with PCP Dr. Russ within one week and patient agrees Patient will need to follow up with Dr. Ames hand thermal cutter in 1-2 weeks for further workup of her interstitial lung disease. Patient also was instructed to follow up with her registered client associate Dr. Klein in 1-2 weeks and she agrees Physical exam Gen: patient is a AAOx3, no distress CVS: S1-S2, RRR, no murmur Lungs: B/L CTA, no wheezing Abdomen: soft, no distention, no tenderness, positive bowel sounds Extremity: no leg edema or induration Time spent more than 35 minutes Patient Condition at Discharge: Serious Plan - Discharge Summary New Discharge Prescriptions: New carvediloL [Coreg] 3.125 mg PO BID-W/MEALS tab Ipratropium-Albuterol Nebulize [Duoneb 0.5 mg-3 mg/3 ml Soln] 3 ml INHALATION RT-QID PRN each PRN Reason: Shortness Of Breath Or Wheezing Mirtazapine [Remeron] 7.5 mg PO HS tab guaiFENesin [Mucinex] 1,200 mg PO Q12HR 4 Days tab Famotidine [Pepcid] 20 mg PO DAILY #0 tab Continue Isosorbide Mononitrate ER [Imdur] 30 mg PO DAILY Multivitamins, Thera [Multivitamin (formulary)] 1 tab PO DAILY Potassium Chloride [Klor-Con 20] 20 meq PO DAILY Folic Acid 1 mg PO DAILY Bumetanide [BUMEX] 2 mg PO DAILY Aspirin [Children's Aspirin] 81 mg PO HS Pregabalin [Lyrica] 100 mg PO BID@1400,2100 Ergocalciferol [Vitamin D2 (1250 Mcg = 25022 Iu)] 1,250 mcg PO SAMANIEGO Docusate [Colace] 100 mg PO DAILY Discontinued carvediloL [Coreg] 6.25 mg PO BID No Action metHOTREXate sodium [Methotrexate] 20 mg PO SAMANIEGO@1400 Discharge Medication List Isosorbide Mononitrate ER [Imdur] 30 mg PO DAILY 04/06/15 [History] Multivitamins, Thera [Multivitamin (formulary)] 1 tab PO DAILY 06/14/16 [History] Potassium Chloride [Klor-Con 20] 20 meq PO DAILY 07/24/18 [History] Aspirin [Children's Aspirin] 81 mg PO HS 01/21/19 [History] Bumetanide [BUMEX] 2 mg PO DAILY 01/21/19 [History] Folic Acid 1 mg PO DAILY 01/21/19 [History] metHOTREXate sodium [Methotrexate] 20 mg PO SAMANIEGO@1400 01/21/19 [History] Docusate [Colace] 100 mg PO DAILY 05/24/21 [History] Ergocalciferol [Vitamin D2 (1250 Mcg = 06969 Iu)] 1,250 mcg PO SAMANIEGO 05/24/21 [History] Pregabalin [Lyrica] 100 mg PO BID@1400,2100 05/24/21 [History] Famotidine [Pepcid] 20 mg PO DAILY #0 tab 04/19/22 [Rx] Ipratropium-Albuterol Nebulize [Duoneb 0.5 mg-3 mg/3 ml Soln] 3 ml INHALATION RT-QID PRN each 04/19/22 [Rx] Mirtazapine [Remeron] 7.5 mg PO HS tab 04/19/22 [Rx] carvediloL [Coreg] 3.125 mg PO BID-W/MEALS tab 04/19/22 [Rx] guaiFENesin [Mucinex] 1,200 mg PO Q12HR 4 Days tab 04/19/22 [Rx] Follow up Appointment(s)/Referral(s): Brady Klein MD [STAFF PHYSICIAN] - 2 Weeks Kareem Ames DO [Doctor of Osteopathic Medicine] - 1 Week Romario Russ DO [Primary Care Provider] - 1-2 days
--- NOTE | 2022-04-19 12:34 | P.PN ---
Subjective Progress Note Date: 04/19/22 This is a 77-year-old white female patient with a past medical history rheumatoid arthritis on methotrexate, coronary artery disease with previous coronary artery bypass grafting in 2007, hypertension, hyperlipidemia, history of smoking, currently in remission, patient does carry [id number] smoking hist ory, previous episode of pneumonia, who was brought into the hospital on 04/14/2022 by EMS for evaluation of generalized weakness for 5 days, patient had 2 or 3 falls at home with no injury. She said diminished appetite, she reports nausea and diarrhea for 5 days. Reports congested nonproductive cough, shortness of breath. She has mild lower extremity edema. Denied any chest pain, no hemoptysis, no abdominal pain, chest x-ray shows coarse lung markings, and possibility of pulmonary fibrosis or mild acute interstitial pneumonia. Laboratory evaluation showed white blood cell count of 12.3, hemoglobin of 11.4, coagulation profile was within normal limits, sodium is 136, serum electrolytes are within normal limits, BUN is 22, creatinine is 1.1, AST and ALT were mildly elevated at 48 and 40 respectively, alk phos was within normal limits at 84, troponin was 0.033, proBNP was 1240, urinalysis showed 1+ protein, trace ketones, rare bacteria, COVID-19, influenza A and B were all negative. Patient was started on empiric antibiotics in the form of azithromycin and Rocephin for possibility of community acquired pneumonia, she was fluid resuscitated, she was given 1/2 L in fluids, currently IV 0.9 normal saline at [address] of abdomen and pelvis showed mild subsegmental atelectasis at the lung bases, no acute abnormality in the abdomen and pelvis. CT of the brain showed cerebral atrophy, no acute intracranial abnormality. On 04/16/2022 patient seen in follow-up on the medical floor. She remains weak and lethargic, she has poor cough, she has audible congestion, she is encouraged to do present cough however she states that she cannot clear the phlegm, lung sounds are positive for diffuse rhonchi, patient needs encouragement to take deep breaths and cough, she is on 2 L of oxygen pulse ox is 97%, afebrile. Continues on Rocephin and azithromycin for empiric antibiotic coverage. On 04/17/2022 patient is seen in follow-up on medical floor. Patient is feeling better today, she sounds clear today, with the exception of some mild crackles at the left base. Much less congested. Much more awake and conversant. On 2 L of oxygen her pulse ox of 98%, she is afebrile. Yesterday she developed symptomatic first-degree type II AV block, please refer to cardiology evaluation. She is having a repeat EKG. Beta vanna dose has been reduced. Blood pressure is stable. She remains on Rocephin, nebulized bronchodilators, and she received a few doses of IV Solu-Medrol. Progress note dated 04/18/2022. The patient is again seen today in room 462. She sitting up in the chair. She is on 2 L of nasal oxygen. Is getting saline 20 mL an hour she is feeling much better. Her cough is looser, and she is much less congested. No new lab data today. From yesterday, her white count was 7.27, hemoglobin 9.8, and platelet count 293,000. Her electrolyte profile is relatively normal with a creatinine of 1.1. Her pro-calcitonin level was 0.72. Blood cultures were negative. Chest x-ray showed tiny bilateral pleural effusions and underlying chronic interstitial lung disease. The patient is seen today 04/19/2022 in follow-up on the regular medical floor. She is currently sitting up in a chair at the bedside. Awake and alert in no acute distress. No worsening shortness of breath, cough or congestion. He is maintaining good O2 saturations in the 90s on 3 L/m per nasal cannula. Blood cultures revealed no growth. No new labs today. She is continued on DuoNeb inhalations. Antibiotics in the form of ceftriaxone. Heparin for DVT prophylaxis. Objective - Vital Signs Vital signs: Vital Signs Temp 98.9 F 04/19/22 08:00 Pulse 84 04/19/22 12:02 Resp 20 04/19/22 09:48 BP 177/85 04/19/22 08:00 Pulse Ox 93 L 04/19/22 08:08 FiO2 Intake & Output 04/18/22 04/19/22 04/19/22 18:59 06:59 18:59 Intake Total 12 Output Total 700 Balance -688 Intake: Intake, IV Titration 12 Amount Sodium Chloride 0.9% 1, 12 000 ml @ 75 mls/hr IV . [id number] [facility] Rx#:[id number] Output: Urine 700 Other: Voiding Method Indwelling Catheter Toilet Toilet # Voids 0 - Exam GENERAL EXAM: Alert, doesn't 77-year-old female, on 3 L nasal cannula, up in a chair at the bedside, comfortable in no apparent distress. HEAD: Normocephalic. EYES: Normal reaction of pupils, equal size. NOSE: Clear with pink turbinates. THROAT: No erythema or exudates. NECK: No masses, no JVD. CHEST: No chest wall deformity. LUNGS: Equal air entry with no crackles, wheeze, rhonchi or dullness. CVS: S1 and S2 normal with no audible murmur, regular rhythm. ABDOMEN: No hepatosplenomegaly, normal bowel sounds, no guarding or rigidity. SPINE: No scoliosis or deformity SKIN: No rashes CENTRAL NERVOUS SYSTEM: No focal deficits, tone is normal in all 4 extremities. EXTREMITIES: There is no peripheral edema. No clubbing, no cyanosis. Peripheral pulses are intact. - Labs CBC & Chem 7: 04/17/22 07:00 04/17/22 07:00 Labs: Microbiology - Last 24 Hours (Table) 04/14/22 16:10 Blood Culture - Preliminary Blood No Growth after 96 hours 04/14/22 16:05 Blood Culture - Preliminary Blood No Growth after 96 hours Assessment and Plan Assessment: Acute hypoxemic respiratory failure secondary to interstitial edema, interstitial lung disease, or atypical/interstitial pneumonia. Prior history of pneumonia. Vomiting/diarrhea/generalized weakness. History of tobacco use. History of hypertension. History of hyperlipidemia. CAD/CABG, 2007. Rheumatoid arthritis. Osteoarthritis. Chronic low back pain. Anxiety/depression. Plan: The patient was seen and evaluated Proved to nearly back to her baseline Plan is for transfer to [facility] for further rehabilitation I have personally seen and examined the patient, performed the documentation and the assessment and plan as written. Number of minutes spent on the visit: 10.
[2022-04-19] MEDS: PREGABALIN 100 MG CAP PO SCH ×2 (13:17→22:09)
[2022-04-19 13:59] VITALS: BMI 32.9
[2022-04-19 21:41] VITALS: RESP 18
[2022-04-19] MEDS: MIRTAZAPINE 15 MG TAB PO SCH (22:09)
[2022-04-19] MEDS: ASPIRIN 81 MG PO SCH (22:10)
[2022-04-20] MEDS: IPRATROPIUM-ALBUTEROL 3 ML NEB INHALATION SCH ×2 (07:48→11:19)
[2022-04-20] MEDS: HEPARIN SODIUM,PORCINE/PF 5,000 UNIT/0.5 ML SYRINGE SQ SCH (08:11)
[2022-04-20] MEDS: FAMOTIDINE 20 MG TAB PO SCH (08:11)
[2022-04-20] MEDS: guaiFENesin 600 MG TABLET.ER PO SCH (08:11)
[2022-04-20] MEDS: FOLIC ACID 1 MG TAB PO SCH (08:11)
[2022-04-20] MEDS: MULTIVITAMINS, THERA 1 EACH TAB PO SCH (08:11)
[2022-04-20] MEDS: POTASSIUM CHLORIDE ER 20 MEQ TAB.ER PO SCH (08:11)
[2022-04-20] MEDS: ISOSORBIDE MONONITRATE ER 30 MG TAB.ER.24H PO SCH (08:11)
[2022-04-20] MEDS: carvediloL 3.125 MG TAB PO SCH (08:11)
[2022-04-20] MEDS: DOCUSATE 100 MG CAP PO SCH (08:11)
[2022-04-20] MEDS: BUMETANIDE 1 MG TAB PO SCH (08:12)
--- NOTE | 2022-04-20 08:41 | P.PN ---
Subjective This is a pleasant 77 years old female with past medical history of Coronary Artery Disease status post triple-vessel bypass, Hyperlipidemia, Hypertension, Osteoarthritis , urinary incontinence, rhematoid arthritis, Anxiety, Depression, chronic kidney disease stage III. PCP is Dr. Russ, also she sees Dr. Rodriguez as outpatient Patient presents because of generalized weakness. Patient states that she came because she has no energy for the last 3-4 days and and she fell at home about 2 days ago when she felt dizzy and fell to the ground with no residual trauma as she states. She complains from her breathing little labored for the last 34 days associated with cough and phlegm but nothing is coming up as she describes. Line she denies chest pain or abdominal pain. However she has 3-4 bouts of diarrhea daily over the last 3-4 days. No nausea vomiting but she has low appetite. She denies dysuria or urgency. No headache or dizziness. No weakness or numbness. She quit smoking in 2007, she denies alcohol or illicit drugs In the emergency room she had fever of 100.5. Recent vitals are stable and she is saturating 97% on room air, later on she was saturating 92-94% on 2 L Labs showing mild leukocytosis of 12.3, and 9.5. Hemoglobin 9.6. Platelet count 160. INR is 1.1. BMP shows sodium 136, creatinine 1.1, which is at baseline. ProBNP is 1240. Troponin 0.033. Liver enzymes slightly elevated with AST 48 and ALT 40 Urine analysis: Nonsuspicious of infection Coronavirus, and influenza virus is are undetected EKG showing normal sinus rhythm at [address]-T changes CT of the abdomen and pelvis with contrast: Second-degree L4-5 spondylolisthesis with spinal stenosis. No acute fracture seen. Mild subsegmental atelectasis of the lung bases. No acute abnormality in the abdomen and pelvis CT of the brain: No acute intracranial lesions. Chest x-ray: Coarse lung markings suggestive of pulmonary fibrosis. No obvious heart failure. Mild acute interstitial pneumonia not exclude it. Lung markings increased compared to old exam Possible bilateral interstitial community-acquired pneumonia In the emergency room patient received IV fluids and Zithromax/ceftriaxone and she was admitted with pulmonary and psych consult 04/16/2022 patient states today her breathing is slightly better she still has weak cough and hard for her to cough, incentive spirometry has been admitted for her. She has little or no nausea or vomiting today, she had some pudding but she has normal bowel movement. She is saturating 92% on 2 L oxygen No labs from today. She remains on Zithromax, ceftriaxone, normal saline 75 mL/h, Solu-Medrol 40 mg IV daily Coreg lower today to 3.125 because of intermittent second degree heart block 04/17/2022 Patient has better strength today stronger cough and she still reports improvement regarding her breathing. She is less wheezing. She SHE ate her oatmeal this morning and tolerates diet well. She has normal bowel movements Oxygen saturation on 2 L/m She's continued on antibiotic with ceftriaxone. Other medication start by pu onary service including Solu-Medrol, Zithromax. She continue normal saline 75 mL/h She agrees to go to subacute rehab upon discharge We'll discontinue Navarrete catheter and check postvoid residual 04/18/2022 Patient breathing is easier today and she is less often, less wheezing. Oxygen saturation was acceptable She's continued on ceftriaxone, steroids were stopped. She had good bowel movement yesterday Navarrete catheter discontinued, discussed with staff to check postvoid residual , still pending Objective - Vital Signs Vital signs: Vital Signs Temp 97.5 F L 04/18/22 08:00 Pulse 70 04/18/22 11:09 Resp 16 04/18/22 08:00 BP 87/59 04/18/22 08:00 Pulse Ox 97 04/18/22 08:00 FiO2 Intake & Output 04/17/22 04/18/22 04/18/22 18:59 06:59 18:59 Intake Total 600 Output Total 1650 700 Balance 600 -1650 -700 Intake: Intake, IV Titration 600 Amount Sodium Chloride 0.9% 1, 600 000 ml @ 75 mls/hr IV . [id number] [facility] Rx#:[id number] Output: Urine 1650 700 Other: Voiding Method Indwelling Catheter Indwelling Catheter Indwelling Catheter - Exam GENERAL: The patient is alert and oriented x3, not in any acute distress. Well developed, well nourished. HEENT: Pupils are round and equally reacting to light. EOMI. No scleral icterus. No conjunctival pallor. Normocephalic, atraumatic. No pharyngeal erythema. No thyromegaly. CARDIOVASCULAR: S1 and S2 present. No murmurs, rubs, or gallops. -PULMONARY: Chest is clear to auscultation, scattered wheezing ABDOMEN: Soft, nontender, nondistended, normoactive bowel sounds. No palpable organomegaly. MUSCULOSKELETAL: No joint swelling or deformity. EXTREMITIES: No cyanosis, clubbing, or pedal edema. NEUROLOGICAL: Gross neurological examination did not reveal any focal deficits. SKIN: No rashes. no petechiae. - Labs CBC & Chem 7: 04/17/22 07:00 04/17/22 07:00 Labs: Microbiology - Last 24 Hours (Table) 04/14/22 16:10 Blood Culture - Preliminary Blood No Growth after 72 hours 04/14/22 16:05 Blood Culture - Preliminary Blood No Growth after 72 hours Assessment and Plan Assessment: Acute bilateral interstitial pneumonia Mild acute hypoxic respiratory failure Mild sepsis with Fever, with mild leukocytosis Mechanical fall without syncope Acute gastroenteritis, most likely reactive. Rule out C. diff negative diarrhea. anxiety and depression Intermittent second-degree AV block Hypertension Hyperlipidemia Chronic kidney disease stage III History of osteoarthritis History of urinary incontinence History of coronary artery disease status post bypass procedure. Anemia Plan: This is a pleasant 77 years old female who presents with bilateral pneumonia, mild hypoxia and sepsis. Continue with ceftriaxone Continue with normal saline Follow up with psychiatrist for depression . Patient is on Remeron DC steroids monitor heart rate Labs and medication were reviewed.. Continue same treatment. Continue with symptomatic treatment. Resume home medication. Monitor lytes and vitals. DVT and GI prophylaxis. Further recommendations as per clinical course of the patient DVT prophylaxis: Subcutaneous heparin GI Prophylaxis: Pepcid PT/OT: LEANDRA Possible discharge in 24-48 hours
--- NOTE | 2022-04-20 08:54 | P.PN ---
Subjective This is a pleasant 77 years old female with past medical history of Coronary Artery Disease status post triple-vessel bypass, Hyperlipidemia, Hypertension, Osteoarthritis , urinary incontinence, rhematoid arthritis, Anxiety, Depression, chronic kidney disease stage III. PCP is Dr. Russ, also she sees Dr. Rodriguez as outpatient Patient presents because of generalized weakness. Patient states that she came because she has no energy for the last 3-4 days and and she fell at home about 2 days ago when she felt dizzy and fell to the ground with no residual trauma as she states. She complains from her breathing little labored for the last 34 days associated with cough and phlegm but nothing is coming up as she describes. Line she denies chest pain or abdominal pain. However she has 3-4 bouts of diarrhea daily over the last 3-4 days. No nausea vomiting but she has low appetite. She denies dysuria or urgency. No headache or dizziness. No weakness or numbness. She quit smoking in 2007, she denies alcohol or illicit drugs In the emergency room she had fever of 100.5. Recent vitals are stable and she is saturating 97% on room air, later on she was saturating 92-94% on 2 L Labs showing mild leukocytosis of 12.3, and 9.5. Hemoglobin 9.6. Platelet count 160. INR is 1.1. BMP shows sodium 136, creatinine 1.1, which is at baseline. ProBNP is 1240. Troponin 0.033. Liver enzymes slightly elevated with AST 48 and ALT 40 Urine analysis: Nonsuspicious of infection Coronavirus, and influenza virus is are undetected EKG showing normal sinus rhythm at [address]-T changes CT of the abdomen and pelvis with contrast: Second-degree L4-5 spondylolisthesis with spinal stenosis. No acute fracture seen. Mild subsegmental atelectasis of the lung bases. No acute abnormality in the abdomen and pelvis CT of the brain: No acute intracranial lesions. Chest x-ray: Coarse lung markings suggestive of pulmonary fibrosis. No obvious heart failure. Mild acute interstitial pneumonia not exclude it. Lung markings increased compared to old exam Possible bilateral interstitial community-acquired pneumonia In the emergency room patient received IV fluids and Zithromax/ceftriaxone and she was admitted with pulmonary and psych consult 04/16/2022 patient states today her breathing is slightly better she still has weak cough and hard for her to cough, incentive spirometry has been admitted for her. She has little or no nausea or vomiting today, she had some pudding but she has normal bowel movement. She is saturating 92% on 2 L oxygen No labs from today. She remains on Zithromax, ceftriaxone, normal saline 75 mL/h, Solu-Medrol 40 mg IV daily Coreg lower today to 3.125 because of intermittent second degree heart block 04/17/2022 Patient has better strength today stronger cough and she still reports improvement regarding her breathing. She is less wheezing. She SHE ate her oatmeal this morning and tolerates diet well. She has normal bowel movements Oxygen saturation on 2 L/m She's continued on antibiotic with ceftriaxone. Other medication start by pu onary service including Solu-Medrol, Zithromax. She continue normal saline 75 mL/h She agrees to go to subacute rehab upon discharge We'll discontinue Navarrete catheter and check postvoid residual 04/18/2022 Patient breathing is easier today and she is less often, less wheezing. Oxygen saturation was acceptable She's continued on ceftriaxone, steroids were stopped. She had good bowel movement yesterday Navarrete catheter discontinued, discussed with staff to check postvoid residual , still pending 04/19/2022 Patient today in the morning rounds was doing better, awake and answering questions appropriately and breathing fine. She ate her male with no nausea vomiting with no reported abdominal pain. She was cleared for discharge by nursing information systems coordinator and segment block layer services and plan for her was to go for [facility]CF for rehab Jaws going to be discharged on Ceftin 7 days for her pneumonia with recommen dation to follow up with Dr. Ames for further workup for her interstitial lung disease. She needs minimum oxygen, her gastroenteritis resolved and heart rate controlled after nursing information systems coordinator large her Coreg and 23.125 milligrams. However by the evening she becomes more drowsy and sleepy, she cannot answer more than 2 hours before she goes to sleep. The bladder scan checked and she has almost 1 L of urinary retention, Navarrete catheter was placed and discharge was held for further monitoring of her mentation Objective - Vital Signs Vital signs: Vital Signs Temp 98.9 F 04/19/22 08:00 Pulse 84 04/19/22 12:02 Resp 20 04/19/22 09:48 BP 177/85 04/19/22 08:00 Pulse Ox 93 L 04/19/22 08:08 FiO2 Intake & Output 04/18/22 04/19/22 04/19/22 18:59 06:59 18:59 Intake Total 12 Output Total 700 Balance -688 Weight 84.368 kg Intake: Intake, IV Titration 12 Amount Sodium Chloride 0.9% 1, 12 000 ml @ 75 mls/hr IV . [id number] [facility] Rx#:[id number] Output: Urine 700 Other: Voiding Method Indwelling Catheter Toilet Toilet # Voids 0 - Exam GENERAL: The patient is alert and oriented x3, not in any acute distress. Well developed, well nourished. HEENT: Pupils are round and equally reacting to light. EOMI. No scleral icterus. No conjunctival pallor. Normocephalic, atraumatic. No pharyngeal erythema. No thyromegaly. CARDIOVASCULAR: S1 and S2 present. No murmurs, rubs, or gallops. -PULMONARY: Chest is clear to auscultation, scattered wheezing ABDOMEN: Soft, nontender, nondistended, normoactive bowel sounds. No palpable organomegaly. MUSCULOSKELETAL: No joint swelling or deformity. EXTREMITIES: No cyanosis, clubbing, or pedal edema. NEUROLOGICAL: Gross neurological examination did not reveal any focal deficits. SKIN: No rashes. no petechiae. - Labs CBC & Chem 7: 04/17/22 07:00 04/17/22 07:00 Labs: Microbiology - Last 24 Hours (Table) 04/14/22 16:10 Blood Culture - Preliminary Blood No Growth after 96 hours 04/14/22 16:05 Blood Culture - Preliminary Blood No Growth after 96 hours Assessment and Plan Assessment: Acute bilateral interstitial pneumonia, rule out interstitial lung disease as an outpatient Altered mental status with metabolic encephalopathy mostly secondary to urinary retention Mild acute hypoxic respiratory failure Mild sepsis with Fever, with mild leukocytosis Mechanical fall without syncope Acute gastroenteritis, most likely reactive. Rule out C. diff negative diarrhea. anxiety and depression Intermittent second-degree AV block Hypertension Hyperlipidemia Chronic kidney disease stage III History of osteoarthritis History of urinary incontinence History of coronary artery disease status post bypass procedure. Anemia Plan: This is a pleasant 77 years old female who presents with bilateral pneumonia, mild hypoxia and sepsis. rePlace Navarrete catheter in keep monitoring her mentation further another 24 hours to ensure cognition stability rather than delirium Continue with ceftriaxone Follow up with psychiatrist for depression . Patient is on Remeron Keep off steroids Discontinue IV fluids monitor heart rate Labs and medication were reviewed.. Continue same treatment. Continue with symptomatic treatment. Resume home medication. Monitor lytes and vitals. DVT and GI prophylaxis. Further recommendations as per clinical course of the patient DVT prophylaxis: Subcutaneous heparin GI Prophylaxis: Pepcid PT/OT: LEANDRA Possible discharge in 24-48 hours
--- NOTE | 2022-04-20 11:28 | P.PN ---
Subjective Progress Note Date: 04/20/22 This is a 77-year-old white female patient with a past medical history rheumatoid arthritis on methotrexate, coronary artery disease with previous coronary artery bypass grafting in 2007, hypertension, hyperlipidemia, history of smoking, currently in remission, patient does carry [id number] smoking hist ory, previous episode of pneumonia, who was brought into the hospital on 04/14/2022 by EMS for evaluation of generalized weakness for 5 days, patient had 2 or 3 falls at home with no injury. She said diminished appetite, she reports nausea and diarrhea for 5 days. Reports congested nonproductive cough, shortness of breath. She has mild lower extremity edema. Denied any chest pain, no hemoptysis, no abdominal pain, chest x-ray shows coarse lung markings, and possibility of pulmonary fibrosis or mild acute interstitial pneumonia. Laboratory evaluation showed white blood cell count of 12.3, hemoglobin of 11.4, coagulation profile was within normal limits, sodium is 136, serum electrolytes are within normal limits, BUN is 22, creatinine is 1.1, AST and ALT were mildly elevated at 48 and 40 respectively, alk phos was within normal limits at 84, troponin was 0.033, proBNP was 1240, urinalysis showed 1+ protein, trace ketones, rare bacteria, COVID-19, influenza A and B were all negative. Patient was started on empiric antibiotics in the form of azithromycin and Rocephin for possibility of community acquired pneumonia, she was fluid resuscitated, she was given 1/2 L in fluids, currently IV 0.9 normal saline at [address] of abdomen and pelvis showed mild subsegmental atelectasis at the lung bases, no acute abnormality in the abdomen and pelvis. CT of the brain showed cerebral atrophy, no acute intracranial abnormality. On 04/16/2022 patient seen in follow-up on the medical floor. She remains weak and lethargic, she has poor cough, she has audible congestion, she is encouraged to do present cough however she states that she cannot clear the phlegm, lung sounds are positive for diffuse rhonchi, patient needs encouragement to take deep breaths and cough, she is on 2 L of oxygen pulse ox is 97%, afebrile. Continues on Rocephin and azithromycin for empiric antibiotic coverage. On 04/17/2022 patient is seen in follow-up on medical floor. Patient is feeling better today, she sounds clear today, with the exception of some mild crackles at the left base. Much less congested. Much more awake and conversant. On 2 L of oxygen her pulse ox of 98%, she is afebrile. Yesterday she developed symptomatic first-degree type II AV block, please refer to cardiology evaluation. She is having a repeat EKG. Beta vanna dose has been reduced. Blood pressure is stable. She remains on Rocephin, nebulized bronchodilators, and she received a few doses of IV Solu-Medrol. Progress note dated 04/18/2022. The patient is again seen today in room 462. She sitting up in the chair. She is on 2 L of nasal oxygen. Is getting saline 20 mL an hour she is feeling much better. Her cough is looser, and she is much less congested. No new lab data today. From yesterday, her white count was 7.27, hemoglobin 9.8, and platelet count 293,000. Her electrolyte profile is relatively normal with a creatinine of 1.1. Her pro-calcitonin level was 0.72. Blood cultures were negative. Chest x-ray showed tiny bilateral pleural effusions and underlying chronic interstitial lung disease. The patient is seen today 04/19/2022 in follow-up on the regular medical floor. She is currently sitting up in a chair at the bedside. Awake and alert in no acute distress. No worsening shortness of breath, cough or congestion. He is maintaining good O2 saturations in the 90s on 3 L/m per nasal cannula. Blood cultures revealed no growth. No new labs today. She is continued on DuoNeb inhalations. Antibiotics in the form of ceftriaxone. Heparin for DVT prophylaxis. The patient is seen today 04/20/2022 in follow-up on the regular medical floor. Currently resting comfortably in bed. Awake and alert in no acute distress. She is maintaining good O2 saturations in the mid 90s on room air. Afebrile. Blood cultures revealed no growth. He is continued on DuoNeb inhalations, antibiotics in the form of ceftriaxone. Heparin for DVT prophylaxis. She is awaiting transfer to [facility] for subacute rehab. Objective - Vital Signs Vital signs: Vital Signs Temp 98.3 F 04/20/22 02:05 Pulse 84 04/20/22 08:05 Resp 18 04/19/22 19:21 BP 165/80 04/20/22 02:05 Pulse Ox 95 04/20/22 02:05 FiO2 Intake & Output 04/19/22 04/20/22 04/20/22 18:59 06:59 18:59 Intake Total 50 Output Total 600 Balance 50 -600 Weight 84.368 kg Intake: Intake, IV Titration 50 Amount cefTRIAXone 1 gm In 50 Sodium Chloride 0.9% 50 ml @ 100 mls/hr IVPB [facility] Rx#:[id number] Output: Urine 600 Other: Voiding Method Toilet Indwelling Catheter Indwelling Catheter - Exam GENERAL EXAM: Alert, pleasant 77-year-old female, on room air, up in a chair at the bedside, comfortable in no apparent distress. HEAD: Normocephalic. EYES: Normal reaction of pupils, equal size. NOSE: Clear with pink turbinates. THROAT: No erythema or exudates. NECK: No masses, no JVD. CHEST: No chest wall deformity. LUNGS: Equal air entry with no crackles, wheeze, rhonchi or dullness. CVS: S1 and S2 normal with no audible murmur, regular rhythm. ABDOMEN: No hepatosplenomegaly, normal bowel sounds, no guarding or rigidity. SPINE: No scoliosis or deformity SKIN: No rashes CENTRAL NERVOUS SYSTEM: No focal deficits, tone is normal in all 4 extremities. EXTREMITIES: There is no peripheral edema. No clubbing, no cyanosis. Peripheral pulses are intact. - Labs CBC & Chem 7: 04/17/22 07:00 04/17/22 07:00 Labs: Microbiology - Last 24 Hours (Table) 04/14/22 16:10 Blood Culture - Preliminary Blood No Growth after 120 hours 04/14/22 16:05 Blood Culture - Preliminary Blood No Growth after 120 hours Assessment and Plan Assessment: Acute hypoxemic respiratory failure secondary to interstitial edema, interstitial lung disease, or atypical/interstitial pneumonia. Prior history of pneumonia. Vomiting/diarrhea/generalized weakness. History of tobacco use. History of hypertension. History of hyperlipidemia. CAD/CABG, 2008. Rheumatoid arthritis. Osteoarthritis. Chronic low back pain. Anxiety/depression. Plan: The patient was seen and evaluated Improved and feeling back to her baseline Plan is for transfer to [facility] for further rehabilitation I have personally seen and examined the patient, performed the documentation and the assessment and plan as written. Number of minutes spent on the visit: 10.
[2022-04-20 11:31] LABS: African American GFR (CKD) 68 (>60 ml/min/1.73 sqM); Anion Gap 10 mmol/L; Blood Urea Nitrogen 19 mg/dL (7-17); Calcium 9.1 mg/dL (8.4-10.2); Carbon Dioxide 25 mmol/L (22-30); Chloride 103 mmol/L (98-107); Glucose 113 mg/dL (74-99); Non-African American GFR(CKD) 59 (>60 ml/min/1.73 sqM); Potassium 4.2 mmol/L (3.5-5.1); Sodium 138 mmol/L (137-145)
--- NOTE | 2022-04-20 13:26 | P.DS ---
Providers Date of admission: 04/14/22 21:49 Attending physician: Kat Lopez MD Consults: 04/14/22 21:35 Consult Physician Routine Consulting Provider: Whit Sadler Consult Reason/Comments: shortness of breath, pulmonary fibrosis, pneumonia Do you want consulting provider notified?: Yes, Notify in am 04/14/22 21:43 Consult Physician Routine Consulting Provider: Ren Ford Consult Reason/Comments: Depression, Anxiety, Aggressive behaviors with spous e Do you want consulting provider notified?: Already Contacted Primary care physician: Romario Russ Hospital Course: Diagnoses: Acute bilateral interstitial pneumonia Mild acute hypoxic respiratory failure Mild sepsis with Fever, with mild leukocytosis Mechanical fall without syncope Urinary retention discharge with IDC Acute gastroenteritis, most likely reactive. Rule out C. diff negative diarrhea. anxiety and depression Intermittent second-degree AV block Hypertension Hyperlipidemia Chronic kidney disease stage III History of osteoarthritis History of urinary incontinence History of coronary artery disease status post bypass procedure. Anemia Full Code Discharge Disposition Patient stable for discharge to subacute rehab. Continue on oral antibiotics for 7 days. Patient is discharged on nasal cannula oxygen support at 2L. Can wean as tolerated. Continue with incentive spirometer 10 times an hour while awake. Indwelling catheter in place for urinary retention and patient will keep in place on discharge and follow up with urology outpatient for further work up. Repeat BMP in 2-3 days for hospital follow up. Hospital course: This is a pleasant 77 years old female with past medical history of Coronary Artery Disease status post triple-vessel bypass, Hyperlipidemia, Hypertension, Osteoarthritis , urinary incontinence, rhematoid arthritis, Anxiety, Depression, chronic kidney disease stage III. PCP is Dr. Russ, also she sees Dr. Rodriguez as outpatient Patient presents because of generalized weakness. Patient states that she came because she has no energy for the last 3-4 days and and she fell at home about 2 days ago when she felt dizzy and fell to the ground with no residual trauma as she states. She complains from her breathing little labored for the last 34 days associated with cough and phlegm but nothing is coming up as she describes. Patient was found to have bilateral interstitial pneumonia. And hypoxia and she's been evaluated by pulmonary and cardiology service and she's been treated with ceftriaxone and IV fluid and Solu-Medrol, patient showed interval improvement, steroids was stopped upon patient request. Patient continues on 2 L nasal cannula denies shortness of breath no cough. She has been evaluated by pulmonary team this admission. She denies any chest pain, no change and abdominal habits, no abdominal pain or vomiting or diarrhea. No fever. No significant urinary complaints. Employment Specialist saw the patient for intermittent second-degree heart block, patient remained asymptomatic, dose of Coreg was lowered 6.25 mg down to 3.125 mg. Patient was cleared for discharge by both cardiology and pulmonary teams Problems and management plan were discussed with the patient and he verbalized understanding and acceptance Patient was found stable and can be discharged to [facility] for subacute rehab in guarded prognosis however she needs follow-up as an outpatient. Patient was instructed to follow up with PCP Dr. Russ within one week and patient agrees Patient will need to follow up with Dr. Ames hand patcher in 1-2 weeks for further workup of her interstitial lung disease. Patient also was instructed to follow up with her tax assessor Dr. Klein in 1-2 weeks and she agrees Patient had urinary catheter placed for urinary retention which will be continued on discharge and she is instructed to see urology on discharge within 1 week for further evaluation. 04/20/2022 Patient evaluated today resting in bed. Discharge held overnight for concern of altered mental status. Patient appears at baseline, alert and oriented. She has spontaneous eye opening. No chest pain, no shortness of breath. No nausea, vomiting, diarrhea. Indwelling catheter in place. Follow up with urology. Today showing sodium 138, potassium 4.2, BUN 19, creatinine 0.95, blood glucose 113, calcium 9.1. She is afebrile, heart rate 77, blood pressure 165/80, on 2L nasal cannula/room air. Lungs are clear, S1 S2 auscultated, abdomen is soft and nontender. Indwelling catheter draining clear yellow urine. Thank you for allowing us to participate in the care of this patient. Please see medication reconciliation for a list of current medication. Total time taken in discharge planning greater than 35 minutes. The impression and plan of care has been dictated by Su Valenzuela, Nurse Practitioner as directed. Dr. Lorri MD I have performed a history and physical examination and medical decision making of this patient, discussed the same with the dictator, and agree with the dictators assessment and plan as written, documented as a scribe. Based on total visit time, I have performed more than 50% of this visit. Patient Condition at Discharge: Fair Plan - Discharge Summary New Discharge Prescriptions: New carvediloL [Coreg] 3.125 mg PO BID-W/MEALS tab Ipratropium-Albuterol Nebulize [Duoneb 0.5 mg-3 mg/3 ml Soln] 3 ml INHALATION RT-QID PRN each PRN Reason: Shortness Of Breath Or Wheezing Mirtazapine [Remeron] 7.5 mg PO HS tab guaiFENesin [Mucinex] 1,200 mg PO Q12HR 4 Days tab Famotidine [Pepcid] 20 mg PO DAILY #0 tab cefUROXime axetiL [Cefuroxime] 500 mg PO BID 7 Days #14 tab Continue Isosorbide Mononitrate ER [Imdur] 30 mg PO DAILY Multivitamins, Thera [Multivitamin (formulary)] 1 tab PO DAILY Potassium Chloride [Klor-Con 20] 20 meq PO DAILY Folic Acid 1 mg PO DAILY Bumetanide [BUMEX] 2 mg PO DAILY Aspirin [Children's Aspirin] 81 mg PO HS Pregabalin [Lyrica] 100 mg PO BID@1400,2100 Ergocalciferol [Vitamin D2 (1250 Mcg = 28197 Iu)] 1,250 mcg PO SAMANIEGO Docusate [Colace] 100 mg PO DAILY Discontinued carvediloL [Coreg] 6.25 mg PO BID No Action metHOTREXate sodium [Methotrexate] 20 mg PO SAMANIEGO@1400 Discharge Medication List Isosorbide Mononitrate ER [Imdur] 30 mg PO DAILY 04/06/15 [History] Multivitamins, Thera [Multivitamin (formulary)] 1 tab PO DAILY 06/14/16 [History] Potassium Chloride [Klor-Con 20] 20 meq PO DAILY 07/24/18 [History] Aspirin [Children's Aspirin] 81 mg PO HS 01/21/19 [History] Bumetanide [BUMEX] 2 mg PO DAILY 01/21/19 [History] Folic Acid 1 mg PO DAILY 01/21/19 [History] metHOTREXate sodium [Methotrexate] 20 mg PO SAMANIEGO@1400 01/21/19 [History] Docusate [Colace] 100 mg PO DAILY 05/24/21 [History] Ergocalciferol [Vitamin D2 (1250 Mcg = 53461 Iu)] 1,250 mcg PO SAMANIEGO 05/24/21 [ History] Pregabalin [Lyrica] 100 mg PO BID@1400,2100 05/24/21 [History] Famotidine [Pepcid] 20 mg PO DAILY #0 tab 04/19/22 [Rx] Ipratropium-Albuterol Nebulize [Duoneb 0.5 mg-3 mg/3 ml Soln] 3 ml INHALATION RT-QID PRN each 04/19/22 [Rx] Mirtazapine [Remeron] 7.5 mg PO HS tab 04/19/22 [Rx] carvediloL [Coreg] 3.125 mg PO BID-W/MEALS tab 04/19/22 [Rx] cefUROXime axetiL [Cefuroxime] 500 mg PO BID 7 Days #14 tab 04/19/22 [Rx] guaiFENesin [Mucinex] 1,200 mg PO Q12HR 4 Days tab 04/19/22 [Rx] Follow up Appointment(s)/Referral(s): Brady Klein MD [STAFF PHYSICIAN] - 2 Weeks Kareem Ames DO [Doctor of Osteopathic Medicine] - 1 Week Romario Russ DO [Primary Care Provider] - 1-2 days Rudy Gonzalez MD [STAFF PHYSICIAN] - 1 Week Activity/Diet/Wound Care/Special Instructions: [facility] Heart Healthy diet Activity as tolerate. Continue with oxygen 2-3 L/m. Oxygen saturation above 90% Continue with indwelling catheter and follow up with urology on discharge Follow up with psychiatry on discharge as well Complete antibiotics for 7 days Discharge Disposition: TRANSFER TO SNF/ECF
[2022-04-20 15:08] VITALS: BP 188/72; PULSE 82; TEMP 99.4
== END 2022-04-20 14:04 | DRG 871 ==
LOC: EC 15:36 → 4SSUR 21:49
PROVIDERS: ADMIT Internal Medicine; ATTEND Internal Medicine
DX: A41.9 Sepsis, unspecified organism (principal); G93.41 Metabolic encephalopathy; J96.01 Acute respiratory failure with hypoxia; J18.9 Pneumonia, unspecified organism; R45.851 Suicidal ideations; J98.11 Atelectasis; D63.1 Anemia in chronic kidney disease; I12.9 Hypertensive chronic kidney disease with stage 1 through stage 4 chronic kidney disease, or unspecified chronic kidney disease; M06.9 Rheumatoid arthritis, unspecified; G31.9 Degenerative disease of nervous system, unspecified; N18.30 Chronic kidney disease, stage 3 unspecified; F32.9 Major depressive disorder, single episode, unspecified; I08.3 Combined rheumatic disorders of mitral, aortic and tricuspid valves; Z68.32 Body mass index [BMI] 32.0-32.9, adult; I44.1 Atrioventricular block, second degree; J84.10 Pulmonary fibrosis, unspecified; R63.0 Anorexia; R19.7 Diarrhea, unspecified; I25.10 Atherosclerotic heart disease of native coronary artery without angina pectoris; M19.90 Unspecified osteoarthritis, unspecified site; E78.5 Hyperlipidemia, unspecified; F41.9 Anxiety disorder, unspecified; R60.0 Localized edema; E86.0 Dehydration; M43.16 Spondylolisthesis, lumbar region; M48.061 Spinal stenosis, lumbar region without neurogenic claudication; R29.6 Repeated falls; W18.30XA Fall on same level, unspecified, initial encounter; G89.29 Other chronic pain; R32 Unspecified urinary incontinence; K52.89 Other specified noninfective gastroenteritis and colitis; I49.3 Ventricular premature depolarization; R33.9 Retention of urine, unspecified; H91.90 Unspecified hearing loss, unspecified ear; Z96.1 Presence of intraocular lens; Z20.822 Contact with and (suspected) exposure to COVID-19; Y92.009 Unspecified place in unspecified non-institutional (private) residence as the place of occurrence of the external cause; I25.2 Old myocardial infarction; Z88.8 Allergy status to other drugs, medicaments and biological substances; Z88.0 Allergy status to penicillin; Z88.2 Allergy status to sulfonamides; Z88.1 Allergy status to other antibiotic agents; Z90.49 Acquired absence of other specified parts of digestive tract; Z87.01 Personal history of pneumonia (recurrent); Z87.891 Personal history of nicotine dependence; Z91.81 History of falling; Z79.82 Long term (current) use of aspirin; Z90.710 Acquired absence of both cervix and uterus; Z95.1 Presence of aortocoronary bypass graft; Z98.1 Arthrodesis status; Z79.899 Other long term (current) drug therapy; Z98.41 Cataract extraction status, right eye; Z98.42 Cataract extraction status, left eye; Z80.9 Family history of malignant neoplasm, unspecified; Z84.89 Family history of other specified conditions
CPT/HCPCS: 36415; 70450; 71045; 71046; 74177; 80048; 80053; 80076; 81001; 82607; 82746; 83605; 83735; 83880; 84145; 84443; 84484; 85025; 85610; 85730; 87040; 87449; 87502; 87635; 93005; 93306; 94640; 94667; 94760; 96361; 96365; 96375; 99285

== ENCOUNTER 2022-05-22 20:23 | Inpatient (IN) | payer MEDICARE, BC ==
--- NOTE | 2022-05-22 21:59 | XR ---
EXAMINATION TYPE: XR foot complete LT DATE OF EXAM: 05/22/2022 COMPARISON: 01/29/2022 HISTORY: Foot pain TECHNIQUE: 3 views FINDINGS: There are transverse fractures of the head of the third and fourth metatarsals. Fractures d o not appear acute. There is moderate plantar and Achilles calcaneal spurring. There is soft tissue s welling of the foot and ankle. IMPRESSION: Metatarsal ununited fractures without change in position compared to 01/29/2022. No evidenc e of a new fracture. Soft tissue swelling.
--- NOTE | 2022-05-22 22:01 | XR ---
EXAMINATION TYPE: XR ankle complete LT DATE OF EXAM: 05/22/2022 COMPARISON: NONE HISTORY: Pain TECHNIQUE: 3 views FINDINGS: There is acute oblique fracture of the distal fibula without displacement. There is soft ti ssue swelling around the ankle joint. There is plantar and Achilles calcaneal spurring. IMPRESSION: Calcaneal spurring. Acute nondisplaced lateral malleolus fracture.
--- NOTE | 2022-05-22 22:01 | XR ---
EXAMINATION TYPE: XR knee complete LT DATE OF EXAM: 05/22/2022 COMPARISON: NONE HISTORY: Pain TECHNIQUE: 3 views FINDINGS: There is vascular calcification. There is no fracture nor dislocation. Joint spaces are katia rly normal. No sign of joint effusion. IMPRESSION: No acute abnormality of the left knee.
[2022-05-22] MEDS ORDERED: HYDROcodone/APAP 5-325MG 1 EACH TAB PO STA (22:34)
--- NOTE | 2022-05-22 23:10 | ED ---
Fall HPI - General Chief Complaint: Fall Stated Complaint: Fall/ankle knee pain Time Seen by Provider: 05/22/22 22:25 Source: patient, family Mode of arrival: wheelchair - History of Present Illness Initial Comments: This is a pleasant 77-year-old female presents to the emergency department after turning and tripped in her kitchen. When this happened she came down on her left knee and her foot folded under her. Patient complaining of left knee pain as well as left ankle and foot pain. Patient recalls the incident, she did not hit her head. She is denying any head pain, no headache, no neck pain. No chest pain or shortness of breath. There was no preceding symptomology. Denying any distal paresthesias. Interestingly, patient was just in a rehabilitation facility and was released 2 weeks ago. This is the patient's third fall since being home. She does use a walker. No headache, no fever or chills, no changes in vision or hearing, no sore throat or difficulty with speech, no neck pain, no chest pain or shortness of breath, no abdominal pain, no nausea or vomiting, no changes in urination or bowel movements, no numbness or tingling,no skin rashes or lesions. Past medical, surgical, social, and family history reviewed. - Related Data Home Medications Medication Instructions Recorded Confirmed Isosorbide Mononitrate ER [Imdur] 30 mg PO DAILY 04/06/15 04/14/22 Multivitamins, Thera [Multivitamin 1 tab PO DAILY 06/14/16 04/14/22 (formulary)] Potassium Chloride [Klor-Con 20] 20 meq PO DAILY 07/24/18 04/14/22 Aspirin [Children's Aspirin] 81 mg PO HS 01/21/19 04/14/22 Bumetanide [BUMEX] 2 mg PO DAILY 01/21/19 04/14/22 Folic Acid 1 mg PO DAILY 01/21/19 04/14/22 metHOTREXate sodium [Methotrexate] 20 mg PO SAMANIEGO@1400 01/21/19 04/14/22 Docusate [Colace] 100 mg PO DAILY 05/24/21 04/14/22 Ergocalciferol [Vitamin D2 (1250 1,250 mcg PO SAMANIEGO 05/24/21 04/14/22 Mcg = [id number] Iu)] Pregabalin [Lyrica] 100 mg PO BID@1400,2100 05/24/21 04/14/22 Previous Rx's Medication Instructions Recorded Famotidine [Pepcid] 20 mg PO DAILY #0 tab 04/19/22 Ipratropium-Albuterol Nebulize 3 ml INHALATION RT-QID PRN each 04/19/22 [Duoneb 0.5 mg-3 mg/3 ml Soln] Mirtazapine [Remeron] 7.5 mg PO HS tab 04/19/22 carvediloL [Coreg] 3.125 mg PO BID-W/MEALS tab 04/19/22 cefUROXime axetiL [Cefuroxime] 500 mg PO BID 7 Days #14 tab 04/19/22 guaiFENesin [Mucinex] 1,200 mg PO Q12HR 4 Days tab 04/19/22 Allergies Allergy/AdvReac Type Severity Reaction Status Date / Time amlodipine [From Norvasc] Allergy Unknown Verified 05/22/22 21:25 diazepam [From Valium] Allergy hard time Verified 05/22/22 21:25 coming out of anesthesia amoxicillin trihydrate AdvReac Severe Nausea & Verified 05/22/22 21:25 [From Augmentin] Vomiting & Diarrhea potassium clavulanate AdvReac Severe Nausea & Verified 05/22/22 21:25 [From Augmentin] Vomiting & Diarrhea sulfamethoxazole AdvReac Severe affected Verified 05/22/22 21:25 [From Bactrim] muscles - couldn't move trimethoprim [From Bactrim] AdvReac Severe affected Verified 05/22/22 21:25 muscles - couldn't move Qefkqyw-MFB-SdR Reductase AdvReac leg cramps Verified 05/22/22 21:25 Inhibitor [Vddwwxy-Fxu-Nuv Reductase Inhibitor] Sulfa (Sulfonamide AdvReac Unknown Verified 05/22/22 21:25 Antibiotics) xanax AdvReac Unknown Uncoded 05/22/22 21:25 Review of Systems ROS Statement: Those systems with pertinent positive or pertinent negative responses have been documented in the HPI. ROS Other: All systems not noted in ROS Statement are negative. 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 CATARACTS RONY. carpal tunnelWITH LENS IMPLANT 2007, lower back spinal fusion 2018, left knee surgery 2018., Past Anesthesia/Blood Transfusion Reactions: Postoperative Nausea & Vomiting (PONV) Additional Past Anesthesia/Blood Transfusion Reaction / Comment(s): PONV and hard to wake up Past Psychological History: Anxiety, Depression Smoking Status: Former smoker Past Alcohol Use History: None Reported Past Drug Use History: None Reported - Past Family History Brother(s) Additional Family Medical History / Comment(s): Shunt has 1 brother and 1 sister but she does not have any contact with them. Patient has 3 children that are all healthy. Mother Family Medical History: Cancer Additional Family Medical History / Comment(s): . Father Family Medical History: Cancer Additional Family Medical History / Comment(s): . General Exam - General Exam Comments Initial Comments: Patient does not appear to be ill or toxic. Appears to be in distress secondary to left ankle pain. Cranial nerves II through XII intact. Alert and oriented 4. Limitations: no limitations General appearance: alert, in distress, obese Head exam: Present: atraumatic, normocephalic, normal inspection Eye exam: Present: normal appearance, PERRL, EOMI. Absent: scleral icterus, conjunctival injection, periorbital swelling ENT exam: Present: normal exam, normal oropharynx, mucous membranes moist, normal external ear exam. Absent: mucous membranes dry Neck exam: Present: normal inspection, full ROM. Absent: tenderness, meningismus, lymphadenopathy Respiratory exam: Present: normal lung sounds bilaterally. Absent: respiratory distress, wheezes, rales, rhonchi, stridor Cardiovascular Exam: Present: regular rate, normal rhythm, normal heart sounds. Absent: systolic murmur, diastolic murmur, rubs, gallop, clicks GI/Abdominal exam: Present: soft, normal bowel sounds. Absent: distended, tenderness, guarding, rebound, rigid Extremities exam: Present: normal inspection, tenderness (Tenderness and lateral aspect of the left ankle, no break in skin integrity, no erythema. Pulses are intact. Mild tenderness to the dorsum of the foot and anterior aspect of her left knee.), normal capillary refill, other (Pelvis is stable, range of motion full in all other major joints. Full muscle strength Zollar major muscle groups.). Absent: full ROM (Range of motion limited in regards to left ankle), pedal edema, joint swelling, calf tenderness Back exam: Present: normal inspection Neurological exam: Present: alert, oriented X3, CN II-XII intact Psychiatric exam: Present: normal affect, normal mood Skin exam: Present: warm, dry, intact, normal color. Absent: rash Course Vital Signs 05/22/22 05/22/22 21:25 23:03 Temperature 97.8 F Pulse Rate 64 67 Respiratory 16 16 Rate Blood Pressure 183/82 184/76 O2 Sat by Pulse 98 97 Oximetry Procedures - Orthopedic Splinting/Casting Injury #1 Side: left Lower Extremity Injury Location: short leg (Posterior mold) Lower Extremity Immobilizer: posterior splint Additional Comments: Distal neurovascular status intact both pre-and post-application Medical Decision Making - Medical Decision Making This patient will require admission to the hospital and likely will require orthopedic evaluation with placement at a rehab facility. Patient has had 3 falls since coming home from the rehab facility. This, of course was without the lateral malleolus fracture. We will discuss with the admitting physician. Urinalysis pending Case discussed in detail with Mr. Cabello hospitalist group with sepsis admission of the patient. Consultation for social work, physical therapy, and discharge planning made. Patient improved after splinting. The case was discussed in detail with ED attending physician. Presentation, findings, treatment plan discussed in detail. Coo Dr. Benitez Note that this patient is being admitted for multiple falls and impaired ambulation. Not for the distal fibula fracture. Patient had no head or cervical spine trauma. I discussed the case with the on-call orthopedic physician, Dr. Del Castillo. He is okay with the patient being admitted under [facility] he will be on consult and see the patient in the morning. - Lab Data Result diagrams: 05/22/22 23:27 05/22/22 23:27 Lab Results 05/22/22 05/22/22 Range/Units 23:27 23:27 WBC 5.9 (3.8-10.6) k/uL RBC 3.92 (3.80-5.40) m/uL Hgb 12.0 (11.4-16.0) gm/dL Hct 36.2 (34.0-46.0) % MCV 92.1 (80.0-100.0) fL MCH 30.6 (25.0-35.0) pg MCHC 33.2 (31.0-37.0) g/dL RDW 17.0 H (11.5-15.5) % Plt Count 151 (150-450) k/uL MPV 9.4 Neutrophils % 71 % Lymphocytes % 23 % Monocytes % 2 % Eosinophils % 2 % Basophils % 1 % Neutrophils # 4.2 (1.3-7.7) k/uL Lymphocytes # 1.4 (1.0-4.8) k/uL Monocytes # 0.1 (0-1.0) k/uL Eosinophils # 0.1 (0-0.7) k/uL Basophils # 0.0 (0-0.2) k/uL Hypochromasia Slight Poikilocytosis Slight Anisocytosis Slight Sodium 140 (137-145) mmol/L Potassium 4.6 (3.5-5.1) mmol/L Chloride 106 (98-107) mmol/L Carbon Dioxide 24 (22-30) mmol/L Anion Gap 10 mmol/L BUN 21 H (7-17) mg/dL Creatinine 0.98 (0.52-1.04) mg/dL Est GFR (CKD-EPI)AfAm 65 (>60 ml/min/1.73 sqM) Est GFR (CKD-EPI)NonAf 56 (>60 ml/min/1.73 sqM) Glucose 117 H (74-99) mg/dL Calcium 9.9 (8.4-10.2) mg/dL Magnesium 2.1 (1.6-2.3) mg/dL Total Bilirubin 0.7 (0.2-1.3) mg/dL AST 50 H (14-36) U/L ALT 30 (4-34) U/L Alkaline Phosphatase 99 (38-126) U/L Total Protein 6.6 (6.3-8.2) g/dL Albumin 4.0 (3.5-5.0) g/dL - EKG Data EKG Comments: EKG done at 2312 and reviewed by the ED attending physician reveals sinus rhythm with a first-degree AV block. [place] interval 274 ms. No evidence of acute ST or T-wave changes. No other rhythm disturbance. Baseline artifact noted. When compared to the previous study from 04/16/2022. At that time patient also had a lengthened [place] interval. Brosseau appeared to be PACs with a sinus pause, no other acute changes. Note the computerized interpretation on 04/16/2022 was second-degree AV block Mobitz type I Disposition Clinical Impression: Multiple falls, Closed fracture of left distal fibula, Impaired ambulation Disposition: ADMITTED IP TO THIS HOSP Condition: Stable Referrals: Romario Russ DO [Primary Care Provider] - 1-2 days Time of Disposition: 23:02 Decision to Admit Reason: Admit from EC Decision Time: 23:02
[2022-05-22 23:49] LABS: Anisocytosis Slight; Basophils % (A) 1 %; Eosinophils # (A) 0.1 k/uL (0-0.7); Eosinophils % (A) 2 %; HCT 36.2 % (34.0-46.0); Hypochromasia Slight; Lymphocytes # (A) 1.4 k/uL (1.0-4.8); Lymphocytes % (A) 23 %; MCH 30.6 pg (25.0-35.0); MCHC 33.2 g/dL (31.0-37.0); MCV 92.1 fL (80.0-100.0); Mean Platelet Volume 9.4; Monocytes # (A) 0.1 k/uL (0-1.0); Monocytes % (A) 2 %; Neutrophils # (A) 4.2 k/uL (1.3-7.7); Neutrophils % (A) 71 %; Platelet Count 151 k/uL (150-450); Poikilocytosis Slight; RBC 3.92 m/uL (3.80-5.40); WBC 5.9 k/uL (3.8-10.6)
[2022-05-23 00:09] LABS: Calcium 9.9 mg/dL (8.4-10.2); Magnesium 2.1 mg/dL (1.6-2.3); Potassium 4.6 mmol/L (3.5-5.1); Total Bilirubin 0.7 mg/dL (0.2-1.3); Total Protein 6.6 g/dL (6.3-8.2)
[2022-05-23] MEDS ORDERED: NALOXONE 0.4 MG/ML 1 ML VIAL IV PRN (01:04)
[2022-05-23] MEDS ORDERED: ONDANSETRON 4 MG/2 ML VIAL IVP PRN (01:04)
[2022-05-23] MEDS: HYDROcodone/APAP 5-325MG 1 EACH TAB PO PRN ×4 (03:24→16:46)
[2022-05-23] MEDS: HEPARIN SODIUM,PORCINE/PF 5,000 UNIT/0.5 ML SYRINGE SQ SCH ×2 (07:26→21:02)
[2022-05-23 08:11] LABS: Appearance,Urine Cloudy (Clear); Bilirubin,Urine Negative (Negative); Blood,Urine Negative (Negative); Color,Urine Yellow; Glucose,Urine (UA) Negative (Negative); Ketones,Urine Negative (Negative); Leukocyte Esterase,Urine Large (Negative); Mucus,Urine Rare /hpf; Nitrite,Urine Negative (Negative); Protein,Urine Trace (Negative); Specific Gravity,Urine 1.027 (1.001-1.035); Squamous Epithelial Cell,Urine 1 /hpf (0-4); Urobilinogen,Urine <2.0 mg/dL (<2.0); WBC,Urine 21 /hpf (0-5)
--- NOTE | 2022-05-23 11:09 | P.CNOR ---
History of Present Illness - [facility] Consult date: 05/23/22 Consult reason: fracture (Left ankle) History of present illness: This is a 77-year-old female who fell in her kitchen, sustaining injury to her left ankle. She states that she was twisting and lost her balance. She was brought to the emergency department and found to have an ankle fracture. She is admitted for further evaluation and possible rehab placement. We're consulted for orthopedic evaluation. 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 CATARACTS RONY. carpal tunnelWITH LENS IMPLANT 2007, lower back spinal fusion 2018, left knee surgery 2018., Past Anesthesia/Blood Transfusion Reactions: Postoperative Nausea & Vomiting (P ONV) Additional Past Anesthesia/Blood Transfusion Reaction / Comm: PONV and hard to wake up Past Psychological History: Anxiety, Depression Additional Psychological History / Comment(s): . Smoking Status: Former smoker Past Alcohol Use History: None Reported Additional Past Alcohol Use History / Comment(s): QUIT 2008 WAS 1PPD smoker since age 17 or 19. She denies any medical marijuana, marijuana, street drug or alcohol use. She lives at home with her of 52 years. Past Drug Use History: None Reported - Past Family History Brother(s) Additional Family Medical History / Comment(s): Shunt has 1 brother and 1 sister but she does not have any contact with them. Patient has 3 children that are all healthy. Mother Family Medical History: Cancer Additional Family Medical History / Comment(s): . Father Family Medical History: Cancer Additional Family Medical History / Comment(s): . Medications and Allergies Home Medications Medication Instructions Recorded Confirmed Type Isosorbide Mononitrate ER [Imdur] 30 mg PO DAILY 04/06/15 05/23/22 History Multivitamins, Thera [Multivitamin 1 tab PO DAILY 06/14/16 05/23/22 History (formulary)] Potassium Chloride [Klor-Con 20] 20 meq PO DAILY 07/24/18 05/23/22 History Aspirin [Children's Aspirin] 81 mg PO HS 01/21/19 05/23/22 History Folic Acid 1 mg PO DAILY 01/21/19 05/23/22 History metHOTREXate sodium [Methotrexate] 20 mg PO SAMANIEGO@1400 01/21/19 05/23/22 History Docusate [Colace] 100 mg PO DAILY 05/24/21 05/23/22 History Ergocalciferol [Vitamin D2 (1250 1,250 mcg PO SAMANIEGO 05/24/21 05/23/22 History Mcg = [id number] Iu)] Pregabalin [Lyrica] 100 mg PO BID@1400,2100 05/24/21 05/23/22 History Famotidine [Pepcid] 20 mg PO DAILY #0 tab 04/19/22 05/23/22 Rx Ipratropium-Albuterol Nebulize 3 ml INHALATION RT-QID PRN each 04/19/22 05/23/22 Rx [Duoneb 0.5 mg-3 mg/3 ml Soln] carvediloL [Coreg] 3.125 mg PO BID-W/MEALS tab 04/19/22 05/23/22 Rx guaiFENesin [Mucinex] 1,200 mg PO Q12HR 4 Days tab 04/19/22 05/23/22 Rx Bumetanide [BUMEX] 0.5 mg PO DAILY 05/23/22 05/23/22 History Mirtazapine 7.5 mg PO HS 05/23/22 05/23/22 History Allergies Allergy/AdvReac Type Severity Reaction Status Date / Time alprazolam [From Xanax] Allergy Unknown Verified 05/23/22 09:38 amlodipine [From Norvasc] Allergy Unknown Verified 05/23/22 09:38 diazepam [From Valium] Allergy hard time Verified 05/23/22 09:38 coming out of anesthesia amoxicillin trihydrate AdvReac Severe Nausea & Verified 05/23/22 09:38 [From Augmentin] Vomiting & Diarrhea potassium clavulanate AdvReac Severe Nausea & Verified 05/23/22 09:38 [From Augmentin] Vomiting & Diarrhea sulfamethoxazole AdvReac Severe affected Verified 05/23/22 09:38 [From Bactrim] muscles - couldn't move trimethoprim [From Bactrim] AdvReac Severe affected Verified 05/23/22 09:38 muscles - couldn't move Vvhkrcz-WVZ-YsQ Reductase AdvReac leg cramps Verified 05/23/22 09:38 Inhibitor [Qznvdnc-Vjx-Dlu Reductase Inhibitor] Sulfa (Sulfonamide AdvReac Unknown Verified 05/23/22 09:38 Antibiotics) Physical Examination This is a pleasant 77-year-old female in no acute distress. She is alert and oriented 3. Exam of the head neck reveal no obvious deformity. She has full cervical spine motion without difficulty or pain. Exam of the upper extremities reveals no obvious deformity. She has full sh oulder, elbow, wrist and finger motion bilaterally. Neurovascular status to the upper extremities is intact. Exam of the lower extremities reveals no obvious deformity. No hip or knee pain with motion. There is a splint in place to the left ankle. There is minimal padding on the splint. Splint is removed. There is moderate swelling to the ankle. She is tender with palpation over the medial and lateral malleoli. There are no open wounds, pressure sores or abrasions. She has full toe motion without difficulty or pain. Neurovascular status to the lower extremities is intact. Results X-rays reveal a minimally displaced distal fibula fracture and a nondisplaced medial malleolar fracture. Mortise is intact. No other fractures identified. - Labs Labs: Abnormal Lab Results - Last 24 Hours (Table) 05/22/22 05/22/22 05/23/22 Range/Units 23:27 23:27 06:30 RDW 17.0 H (11.5-15.5) % BUN 21 H (7-17) mg/dL Glucose 117 H (74-99) mg/dL AST 50 H (14-36) U/L Urine Appearance Cloudy H (Clear) Urine Protein Trace H (Negative) Ur Leukocyte Esterase Large H (Negative) Urine WBC 21 H (0-5) /hpf Urine Mucus Rare H (None) /hpf H & H 05/22/22 Range/Units 23:27 Hgb 12.0 (11.4-16.0) gm/dL Hct 36.2 (34.0-46.0) % Result Diagrams: 05/22/22 23:27 05/22/22 23:27 Assessment and Plan (1) Closed bimalleolar fracture of left ankle Current Visit: Yes Status: Acute Code(s): S82.842A - DISPLACED BIMALLEOLAR FRACTURE OF LEFT LOWER LEG, INIT SNOMED Code(s): 11891506 (2) Left ankle pain Current Visit: Yes Status: Acute Code(s): M25.572 - PAIN IN LEFT ANKLE AND JOINTS OF LEFT FOOT SNOMED Code(s): 427047465 (3) Multiple falls Current Visit: Yes Status: Acute Code(s): R29.6 - REPEATED FALLS SNOMED Code(s): 480259233 Plan: The clinical and x-ray findings are discussed with the patient. Her splint is changed today to a well-padded splint with the ankle in proper position. It is recommended she had a computed tomography scan for further evaluation of the left ankle for possible surgical planning. If there is minimal displacement noted on CT she may be able to proceed with conservative, nonsurgical treatment. She may need placement for rehab. We will await the computed tomography scan results and proceed with further recommendations at that time.
--- NOTE | 2022-05-23 13:08 | CT ---
EXAMINATION TYPE: CT ankle LT wo con DATE OF EXAM: 05/23/2022 COMPARISON: None HISTORY: left ankle pain CT DLP: 467.[address] of the left ankle with reconstruction imaging. TECHNIQUE: Unenhanced CT of the left ankle was performed with bone and soft tissue window settings jerry bmitted in the axial coronal and sagittal planes. At a separate workstation [id number] TR imaging was obtai bernardo. FINDINGS: There is diffuse bony osteopenia. Cast material overlies the left ankle. There is displaced lateral m alleolar fracture with displacement of 3.4 mm. Virtually nondisplaced medial malleolar fracture at th e level of the ankle mortise. There is also anterior malleolar fracture with displacement of a 4.4 mm . Posterior malleolar corner fracture without significant displacement. There is comminuted and displ aced fracture of the tarsal cuboid with displacement of 5.3 mm. The ankle mortise appears to be intac t. No additional fractures seen. Extensive soft tissue edema. IMPRESSION: 1. Multiple fractures about the left ankle.
[2022-05-23] MEDS: PREGABALIN 100 MG CAP PO SCH ×2 (13:45→21:02)
[2022-05-23] MEDS: carvediloL 3.125 MG TAB PO SCH (16:45)
[2022-05-23] MEDS: guaiFENesin 600 MG TABLET.ER PO SCH (21:02)
[2022-05-23] MEDS: MIRTAZAPINE 15 MG TAB PO SCH (21:02)
[2022-05-23] MEDS: ASPIRIN 81 MG PO SCH (21:02)
--- NOTE | 2022-05-24 01:36 | HP ---
HISTORY AND PHYSICAL CHIEF COMPLAINT: Fall and left ankle pain. HISTORY OF PRESENT ILLNESS: This is a 77-year-old woman with a past medical history of multiple medical problems, including CAD, hypertension, being followed by Dr. Russ, just recently court- ordered with rehab, but apparently the patient slipped and fell and complaining of left ankle pain. Orthopedic evaluation with CT scan. The patient is having severe pain and swelling, and at this time, it seems like the patient went to rehab again. There is no history of any fever, rigors, or chills. PAST MEDICAL HISTORY: Reviewed, include hypertension, hyperlipidemia, multiple medical issues. HOME MEDICATIONS: Reviewed include methotrexate, dose and rest of medication noted. ALLERGIES: Reviewed include Xanax. FAMILY HISTORY: History of cancer. SOCIAL HISTORY: Previous history of smoker. REVIEW OF SYSTEMS: A 14-point review of systems is negative except as mentioned earlier. PHYSICAL EXAMINATION: VITAL SIGNS: Pulse is 74, blood pressure 160/93, respirations 18. CHEST: Conjunctivae normal. NECK: No JVD. CARDIOVASCULAR: Breath sounds diminished at the bases. A few scattered rhonchi. ABDOMEN: Soft, nontender. LEGS: Left ankle, status post splint. SKIN: No ulcer. LABS: Reviewed. UA, possible UTI. ASSESSMENT: 1. Status post fall and left ankle fracture with gait dysfunction. 2. Hypertension. 3. Hyperlipidemia. 4. Multiple medical issues. RECOMMENDATIONS AND DISCUSSION: This is a 77-year-old woman, who presented with multiple complex medical issues, we will monitor the patient closely. Continue the current pain management. DVT prophylaxis. Orthopedic evaluation. Otherwise, continue the home medications once they are confirmed. The prognosis is extremely guarded because of multiple complex medical issues. Further recommendations to follow. MMODL / IJN: [id number] /
[2022-05-24] MEDS: HYDROcodone/APAP 5-325MG 1 EACH TAB PO PRN (04:04)
[2022-05-24] MEDS: ISOSORBIDE MONONITRATE ER 30 MG TAB.ER.24H PO SCH (08:12)
[2022-05-24] MEDS: MULTIVITAMINS, THERA 1 EACH TAB PO SCH (08:12)
[2022-05-24] MEDS: FOLIC ACID 1 MG TAB PO SCH (08:12)
[2022-05-24] MEDS: FAMOTIDINE 20 MG TAB PO SCH (08:12)
[2022-05-24] MEDS: carvediloL 3.125 MG TAB PO SCH ×2 (08:12→16:57)
[2022-05-24] MEDS: HEPARIN SODIUM,PORCINE/PF 5,000 UNIT/0.5 ML SYRINGE SQ SCH ×2 (08:12→20:03)
[2022-05-24] MEDS: guaiFENesin 600 MG TABLET.ER PO SCH ×2 (08:12→20:03)
[2022-05-24] MEDS: BUMETANIDE 0.5 MG TABLET PO SCH (08:13)
[2022-05-24] MEDS: POTASSIUM CHLORIDE ER 20 MEQ TAB.ER PO SCH (08:14)
--- NOTE | 2022-05-24 09:32 | P.CNOR ---
History of Present Illness - [facility] Consult date: 05/24/22 Requesting physician: Leon Del Castillo Consult reason: fracture History of present illness: I was asked to consult on this 77-year-old female for evaluation of a left ankle fracture. The patient suffered a fall at home on May 22. She was in her kitchen and twisted and lost her balance. She came down on her knee and her ankle and foot folded underneath her. Patient was just recently discharged from the rehab facility due to multiple falls. Upon admission x-rays were ordered that showed a distal fibular fracture. A computed tomography scan was ordered of the left ankle that showed a trimalleolar fracture. At the time of the computed tomography scan there was minimal displacement of any of the fractures. However due to the inherent instability of trimalleolar fractures, I was consulted for surgical evaluation. 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 CATARACTS RONY. carpal tunnelWITH LENS IMPLANT 2007, lower back spinal fusion 2018, left knee surgery 2018., Past Anesthesia/Blood Transfusion Reactions: Postoperative Nausea & Vomiting (PONV) Additional Past Anesthesia/Blood Transfusion Reaction / Comm: PONV and hard to wake up Past Psychological History: Anxiety, Depression Additional Psychological History / Comment(s): . Smoking Status: Former smoker Past Alcohol Use History: None Reported Additional Past Alcohol Use History / Comment(s): QUIT 2008 WAS 1PPD smoker since age 17 or 19. She denies any medical marijuana, marijuana, street drug or alcohol use. She lives at home with her of 52 years. Past Drug Use History: None Reported - Past Family History Brother(s) Additional Family Medical History / Comment(s): Shunt has 1 brother and 1 sister but she does not have any contact with them. Patient has 3 children that are all healthy. Mother Family Medical History: Cancer Additional Family Medical History / Comment(s): . Father Family Medical History: Cancer Additional Family Medical History / Comment(s): . Medications and Allergies Home Medications Medication Instructions Recorded Confirmed Type Isosorbide Mononitrate ER [Imdur] 30 mg PO DAILY 04/06/15 05/23/22 History Multivitamins, Thera [Multivitamin 1 tab PO DAILY 06/14/16 05/23/22 History (formulary)] Potassium Chloride [Klor-Con 20] 20 meq PO DAILY 07/24/18 05/23/22 History Aspirin [Children's Aspirin] 81 mg PO HS 01/21/19 05/23/22 History Folic Acid 1 mg PO DAILY 01/21/19 05/23/22 History metHOTREXate sodium [Methotrexate] 20 mg PO SAMANIEGO@1400 01/21/19 05/23/22 History Docusate [Colace] 100 mg PO DAILY 05/24/21 05/23/22 History Ergocalciferol [Vitamin D2 (1250 1,250 mcg PO SAMANIEGO 05/24/21 05/23/22 History Mcg = 24615 Iu)] Pregabalin [Lyrica] 100 mg PO BID@1400,2100 05/24/21 05/23/22 History Famotidine [Pepcid] 20 mg PO DAILY #0 tab 04/19/22 05/23/22 Rx Ipratropium-Albuterol Nebulize 3 ml INHALATION RT-QID PRN each 04/19/22 05/23/22 Rx [Duoneb 0.5 mg-3 mg/3 ml Soln] carvediloL [Coreg] 3.125 mg PO BID-W/MEALS tab 04/19/22 05/23/22 Rx guaiFENesin [Mucinex] 1,200 mg PO Q12HR 4 Days tab 04/19/22 05/23/22 Rx Bumetanide [BUMEX] 0.5 mg PO DAILY 05/23/22 05/23/22 History Mirtazapine 7.5 mg PO HS 05/23/22 05/23/22 History Allergies Allergy/AdvReac Type Severity Reaction Status Date / Time alprazolam [From Xanax] Allergy Unknown Verified 05/23/22 09:38 amlodipine [From Norvasc] Allergy Unknown Verified 05/23/22 09:38 diazepam [From Valium] Allergy hard time Verified 05/23/22 09:38 coming out of anesthesia amoxicillin trihydrate AdvReac Severe Nausea & Verified 05/23/22 09:38 [From Augmentin] Vomiting & Diarrhea potassium clavulanate AdvReac Severe Nausea & Verified 05/23/22 09:38 [From Augmentin] Vomiting & Diarrhea sulfamethoxazole AdvReac Severe affected Verified 05/23/22 09:38 [From Bactrim] muscles - couldn't move trimethoprim [From Bactrim] AdvReac Severe affected Verified 05/23/22 09:38 muscles - couldn't move Jhpmkvz-AKS-IoT Reductase AdvReac leg cramps Verified 05/23/22 09:38 Inhibitor [Emnqncv-Nyj-Mnv Reductase Inhibitor] Sulfa (Sulfonamide AdvReac Unknown Verified 05/23/22 09:38 Antibiotics) Physical Examination Osteopathic Statement: *. No significant issues noted on an osteopathic structural exam other than those noted in the History and Physical/Consult. - Ankle & Foot left Ankle appearance: swelling, other (Patient is in a below-knee splint with the leg elevated in bed) Tenderness with palpation: medial ankle, posterolateral ankle, lateral ankle Ankle pain relieved by non-weight bearing: Yes Ankle alignment: normal - Fracture ankle Appearance: swelling Compartments: soft Distal extremity neurovascularly intact: Yes Other injury: vascular injury: no, nerve injury: no Results - Labs Labs: Microbiology - Last 24 Hours (Table) 05/23/22 06:30 Urine Culture - Preliminary Urine,Voided H & H 05/22/22 Range/Units 23:27 Hgb 12.0 (11.4-16.0) gm/dL Hct 36.2 (34.0-46.0) % Result Diagrams: 05/22/22 23:27 05/22/22 23:27 - Diagnostic results Ankle/Foot x-ray: image reviewed Ankle/Foot CT: image reviewed Assessment and Plan (1) Closed trimalleolar fracture of ankle Narrative/Plan: The patient's daughter and were present during today's exam. Extensive explanation of the patient's condition as well as treatment options were provided. Given the patient's age and fall risk, it was recommended that open reduction and internal fixation of the fracture be performed. And Jacob this will allow for earlier weightbearing and less deconditioning. Surgery is scheduled for late afternoon/early evening of 05/24/2022. The details of the surgery were discussed with the patient as well as the present family. Plate will be added to the lateral malleolus to allow for stability and prevent ashley rtening. Screws were placed in the medial malleolus. Stress testing the ankle also be performed to assess the stability of the syndesmosis. However, the patient has a posterior malleolar fracture that, if not addressed, can lead to instability ankle. There are for the use of a syndesmotic reduction device will most likely be used. This will not affect the timing of the overall recovery. I explained to the patient and family that the hope is to allow weightbearing in 4-6 weeks. Most likely she'll be staying a rehabilitation until she is able to safely ambulate. Risks and benefits of the surgery were discussed including, but not limited to: Bleeding, infection, deep vein thrombosis, wound complications, and delayed healing of the incisions and/or bones. The patient and family verbalized her understanding of the treatment plan. Current Visit: Yes Status: Acute Onset Date: ~05/22/22 Code(s): S82.853A - DISPLACED TRIMALLEOLAR FRACTURE OF UNSP LOWER LEG, INIT SNOMED Code(s): 6731740 Plan: Open reduction with internal fixation of left trimalleolar ankle fracture
[2022-05-24 10:03] LABS: Basophils # (A) 0.04 X 10*3/uL (0.00-0.10); Basophils % (A) 0.7 %; Eosinophils # (A) 0.15 X 10*3/uL (0.04-0.35); Eosinophils % (A) 2.6 %; HCT 28.7 % (37.2-46.3); HGB 9.2 g/dL (12.0-15.0); Immature Grans, Automated 0.2 %; Lymphocytes # (A) 1.63 X 10*3/uL (0.90-5.00); MCH 30.2 pg (27.0-32.0); MCHC 32.1 g/dL (32.0-37.0); MCV 94.1 fL (80.0-97.0); Mean Platelet Volume 12.3 fL (9.5-12.2); Monocytes # (A) 0.23 X 10*3/uL (0.20-1.00); NRBC Per 100 WBC 0 /100 WBCS (0.0-0.0); Neutrophils # (A) 3.76 X 10*3/uL (1.80-7.70); Neutrophils % (A) 64.5 %; Platelet Count 134 X 10*3/uL (140-440); RBC 3.05 X 10*6/uL (4.10-5.20); RDW 16.8 % (11.5-14.5); WBC 5.82 X 10*3/uL (4.50-10.00)
[2022-05-24 10:25] LABS: African American GFR (CKD) 42.2 (60.0-200.0); Albumin 3.2 g/dL (3.8-4.9); Albumin/Globulin Ratio 1.68 (1.60-3.17); BUN/Creat Ratio 17.29 Ratio (12.00-20.00); Blood Urea Nitrogen 24.2 mg/dL (9.0-27.0); Calcium 8.7 mg/dL (8.7-10.3); Globulin 1.9 g/dL (1.6-3.3); Non-African American GFR(CKD) 36.4 (60.0-200.0); Potassium 4.3 mmol/L (3.5-5.5); Total Bilirubin 0.5 mg/dL (0.30-1.20); Total Protein 5.1 g/dL (6.2-8.2)
[2022-05-24] MEDS: PREGABALIN 100 MG CAP PO SCH ×2 (13:59→20:02)
[2022-05-24] MEDS ORDERED: hydrALAZINE HCL 20 MG/ML 1 ML VIAL IVP STA ×2 (14:49→17:00)
[2022-05-24] MEDS ORDERED: LACTATED RINGERS 1,000 ML IV ONE ×2 (15:49)
--- NOTE | 2022-05-24 19:39 | CT ---
EXAMINATION TYPE: CT brain wo con DATE OF EXAM: 05/24/2022 COMPARISON: 04/14/2022 HISTORY: AMS CT DLP: 1076.4 mGycm Automated exposure control for dose reduction was used. Images obtained of the brain without contrast. There is cerebral cortical atrophy. There is no mass effect or midline shift. No sign of intracranial hemorrhage. Ventricles are borderline enlarged. Calvarium is intact. Skull base is intact. IMPRESSION: Negative CT scan of the brain. No significant change. Mild atrophy.
[2022-05-24] MEDS: IPRATROPIUM-ALBUTEROL 3 ML NEB INHALATION PRN (20:00)
[2022-05-24] MEDS: ASPIRIN 81 MG PO SCH (20:01)
[2022-05-24] MEDS: MIRTAZAPINE 15 MG TAB PO SCH (20:01)
[2022-05-25] MEDS: HEPARIN SODIUM,PORCINE/PF 5,000 UNIT/0.5 ML SYRINGE SQ SCH ×3 (07:28→23:00)
[2022-05-25] MEDS: IPRATROPIUM-ALBUTEROL 3 ML NEB INHALATION PRN (08:56)
--- NOTE | 2022-05-25 09:00 | P.PN ---
Subjective Progress Note Date: 05/25/22 Principal diagnosis: Left ankle fracture This is a 77 year-old female with a left ankle trimalleolar fracture. Her surgery was canceled yesterday due to mental status changes. A brain CT was preformed and was negative for CVA or bleed. She has been evaluated by neurology this morning after my evaluation. The patient is very sleepy this morning but arouses to her name. She appears comfortable at this time. The daughter is concerned about her elevated blood pressures overnight. Objective - Vital Signs Vital signs: Vital Signs Temp 97.9 F 05/25/22 08:00 Pulse 62 05/25/22 08:00 Resp 16 05/25/22 08:00 BP 153/49 05/25/22 08:00 Pulse Ox 96 05/25/22 08:00 FiO2 Intake & Output 05/24/22 05/25/22 05/25/22 18:59 06:59 18:59 Intake Total 50 Output Total 1100 250 Balance -1050 -250 Intake: IV 50 Output: Urine 1100 250 Other: Voiding Method External Catheter External Catheter # Voids 2 - Exam the patient is a 77-year-old female in no acute distress. She is sleepy but arouses to verbal stimuli. Exam of the left leg reveals a well fitting splint. Her toes are warm and well perfused. - Labs CBC & Chem 7: 05/24/22 05:58 05/24/22 05:58 Labs: Abnormal Lab Results - Last 24 Hours (Table) 05/24/22 05/24/22 Range/Units 05:58 05:58 RBC 3.05 L (4.10-5.20) X 10*6/uL Hgb 9.2 L (12.0-15.0) g/dL Hct 28.7 L (37.2-46.3) % RDW 16.8 H (11.5-14.5) % Plt Count 134 L (140-440) X 10*3/uL MPV 12.3 H (9.5-12.2) fL Anion Gap 8.00 L (10.00-18.00) mmol/L Est GFR (CKD-EPI)AfAm 42.2 L (60.0-200.0) Est GFR (CKD-EPI)NonAf 36.4 L (60.0-200.0) Total Protein 5.1 L (6.2-8.2) g/dL Albumin 3.2 L (3.8-4.9) g/dL Microbiology - Last 24 Hours (Table) 05/23/22 06:30 Urine Culture - Final Urine,Voided Assessment and Plan (1) Closed trimalleolar fracture of ankle Current Visit: Yes Status: Acute Onset Date: ~05/22/22 Code(s): S82.853A - DISPLACED TRIMALLEOLAR FRACTURE OF UNSP LOWER LEG, INIT SNOMED Code(s): 3132573 (2) Left ankle pain Current Visit: Yes Status: Acute Code(s): M25.572 - PAIN IN LEFT ANKLE AND JOINTS OF LEFT FOOT SNOMED Code(s): 856154049 (3) Multiple falls Current Visit: Yes Status: Acute Code(s): R29.6 - REPEATED FALLS SNOMED Code(s): 460314045 Plan: The clinical findings were discussed with the daughter at the bedside. The patient seems to be improving mentally but is still very sleepy. The case will be discussed with Dr. Clements and will come up with a plan for either surgery next week or non-operative treatment. Continue to ice and elevate left ankle. Continue pain control as needed. We will continue to follow the patient closely.
[2022-05-25] MEDS: MULTIVITAMINS, THERA 1 EACH TAB PO SCH (09:24)
[2022-05-25] MEDS: ISOSORBIDE MONONITRATE ER 30 MG TAB.ER.24H PO SCH (09:24)
[2022-05-25] MEDS: FAMOTIDINE 20 MG TAB PO SCH (09:24)
[2022-05-25] MEDS: guaiFENesin 600 MG TABLET.ER PO SCH ×2 (09:24→23:00)
[2022-05-25] MEDS: carvediloL 3.125 MG TAB PO SCH ×2 (09:24→17:27)
[2022-05-25] MEDS: FOLIC ACID 1 MG TAB PO SCH (09:24)
[2022-05-25] MEDS: POTASSIUM CHLORIDE ER 20 MEQ TAB.ER PO SCH (09:24)
[2022-05-25] MEDS: BUMETANIDE 0.5 MG TABLET PO SCH (09:24)
--- NOTE | 2022-05-25 09:28 | P.CNNES ---
History of Present Illness Consult date: 05/25/22 Requesting physician: Kat Lopez Reason for Consult: confusion History of Present Illness: This is a 77-year-old woman with significant history of hypertension, coronary artery disease status post CABG, lower back spinal fusion in 2018 who presented emergency department after a fall. Neurology is consulted for altered mental status. Some of the history is obtained from medical record and patient's daughter who is at bedside. The patient the tripped in her kitchen after turning and as result lost her balance. She came down on her left knee which folder on her and presented emergency department plating of left knee as well as a foot ankle pain. She denies any loss of consciousness, denies any head trauma denies any chest pain or shortness of breath prior to the event or any warning sign. Denies of any numbness. She denies of any neck pain. It seems during this hospital visit had some confusion but according to yesterday's A.M. nurse but she was responding appropriately and following commands. No seizure-like activity noted. She was getting Luverne during this hospital visit and last dose was yesterday early A.M. Her blood pressure has been running high during this hospital visit and her systolic was as high as 230 and diastolic was as high as 90's. Her urine analysis is likely suggestive of urinary tract infection and a urine culture shows more than 100,000 skin fluoroscopy or genital isiah. No seizure-like activity noted during his hospital visit. Per the nurse that she was getting pain medication (Narcotics for her pain). She had x-rays which shows distal fibular fracture and she had also fracture on the left ankle. Orthopedic team is on board and recommended ORIF but because of concern of confusion it was held. Per the daughter her mentation is better today compared to yesterday but not fully back to baseline. Some other workup during this hospital visit consisted of: CT of the head is reported as negative CT scan of the brain. No significant change. Mild atrophy. I personally reviewed the CT of the head and there is no acute subacute ischemia there is no temporal, hemorrhage. I do not feel the patient has any significant atrophy more than her age. There is no encephalomalacia that was largely appreciated. As stated above her UA was likely suggestive of urine tract infection. Review of Systems Review of system: The 12 point system was reviewed and apparent positive and negative per HPI. 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 CATARACTS RONY. carpal tunnelWITH LENS IMPLANT 2007, lower back spinal fusion 2017, left knee surgery 2018., Past Anesthesia/Blood Transfusion Reactions: Postoperative Nausea & Vomiting (PONV) Additional Past Anesthesia/Blood Transfusion Reaction / Comment(s): PONV and hard to wake up Past Psychological History: Anxiety, Depression Additional Psychological History / Comment(s): . Smoking Status: Former smoker Past Alcohol Use History: None Reported Additional Past Alcohol Use History / Comment(s): QUIT 2007 WAS 1PPD smoker since age 17 or 19. She denies any medical marijuana, marijuana, street drug or alcohol use. She lives at home with her of 52 years. Past Drug Use History: None Reported - Past Family History Brother(s) Additional Family Medical History / Comment(s): Shunt has 1 brother and 1 sister but she does not have any contact with them. Patient has 3 children that are all healthy. Mother Family Medical History: Cancer Additional Family Medical History / Comment(s): . Father Family Medical History: Cancer Additional Family Medical History / Comment(s): . Medications and Allergies Home Medications Medication Instructions Recorded Confirmed Type Isosorbide Mononitrate ER [Imdur] 30 mg PO DAILY 04/06/15 05/23/22 History Multivitamins, Thera [Multivitamin 1 tab PO DAILY 06/14/16 05/23/22 History (formulary)] Potassium Chloride [Klor-Con 20] 20 meq PO DAILY 07/24/18 05/23/22 History Aspirin [Children's Aspirin] 81 mg PO HS 01/21/19 05/23/22 History Folic Acid 1 mg PO DAILY 01/21/19 05/23/22 History metHOTREXate sodium [Methotrexate] 20 mg PO SAMANIEGO@1400 01/21/19 05/23/22 History Docusate [Colace] 100 mg PO DAILY 05/24/21 05/23/22 History Ergocalciferol [Vitamin D2 (1250 1,250 mcg PO SAMANIEGO 05/24/21 05/23/22 History Mcg = 96051 Iu)] Pregabalin [Lyrica] 100 mg PO BID@1400,2100 05/24/21 05/23/22 History Famotidine [Pepcid] 20 mg PO DAILY #0 tab 04/19/22 05/23/22 Rx Ipratropium-Albuterol Nebulize 3 ml INHALATION RT-QID PRN each 04/19/2205/23 Rx [Duoneb 0.5 mg-3 mg/3 ml Soln] carvediloL [Coreg] 3.125 mg PO BID-W/MEALS tab 04/19/22 05/23/22 Rx guaiFENesin [Mucinex] 1,200 mg PO Q12HR 4 Days tab 04/19/22 05/23/22 Rx Bumetanide [BUMEX] 0.5 mg PO DAILY 05/23/22 05/23/22 History Mirtazapine 7.5 mg PO HS 05/23/22 05/23/22 History Allergies Allergy/AdvReac Type Severity Reaction Status Date / Time alprazolam [From Xanax] Allergy Unknown Verified 05/23/22 09:38 amlodipine [From Norvasc] Allergy Unknown Verified 05/23/22 09:38 diazepam [From Valium] Allergy hard time Verified 05/23/22 09:38 coming out of anesthesia amoxicillin trihydrate AdvReac Severe Nausea & Verified 05/23/22 09:38 [From Augmentin] Vomiting & Diarrhea potassium clavulanate AdvReac Severe Nausea & Verified 05/23/22 09:38 [From Augmentin] Vomiting & Diarrhea sulfamethoxazole AdvReac Severe affected Verified 05/23/22 09:38 [From Bactrim] muscles - couldn't move trimethoprim [From Bactrim] AdvReac Severe affected Verified 05/23/22 09:38 muscles - couldn't move Gubfdae-KOK-YbP Reductase AdvReac leg cramps Verified 05/23/22 09:38 Inhibitor [Iiqiike-Qlt-Cli Reductase Inhibitor] Sulfa (Sulfonamide AdvReac Unknown Verified 05/23/22 09:38 Antibiotics) Physical Examination - Vital Signs Vital Signs: Vital Signs Temp Pulse Pulse Resp BP Pulse Ox 05/25/22 02:00 98.1 F 47 L 18 186/47 96 05/24/22 20:10 60 05/24/22 20:00 64 05/24/22 18:46 98.4 F 60 18 195/44 97 05/24/22 16:50 230/60 05/24/22 15:37 98.6 F 67 20 142/70 97 05/24/22 14:00 97.8 F 61 18 201/61 97 Intake and Output 05/24/22 05/25/22 05/25/22 22:59 06:59 14:59 Intake Total 50 Output Total 700 250 Balance -650 -250 Intake: IV 50 Output: Urine 700 250 Other: Voiding Method External Catheter # Voids 2 GENERAL: The patient is lying in bed and is not in acute distress. CHEST: The heart rate is regular rate rhythm. No murmurs to auscultation. LUNG: Clear to auscultation bilaterally no wheezing noted throughout. Not labored breathing. ABDOMEN/GI: Bowel sounds present in all 4 quadrants. No tenderness to palpation throughout. NEUROLOGICAL: Higher mental function: The patient is awake, alert, oriented to self. She stated she was in the hospital but did not know name. She stated the month is April (and today is first day of May) which I personally cannot blame her since in hospital. At times I had to ask her questions twice. She stated the year correctly. She correctly name objects (pen, watch and glasses). Patient is following simple commands. No aphasia and no neglect. Cranial nerves: The pupils are round, equal and reactive to light and accommodation. Visual dennison are full to confrontation throughout. Extraocular movement is intact no nystagmus is noted. Facial sensation is normal to touch throughout. The facial strength is possible slightly right nasolabial flattening (but per daughter at baseline). Hearing is mildly to moderate decreased bilaterally to hand rub. Tongue is midline and moved [id number] without any difficulty. No dysarthria is noted. Shoulder shrug is normal bilaterally. Motor: The strength is limited over the left lower since is in a cast and in pain but was able to wiggle her toes. Otherwise 5 over 5 throughout. Normal tone and bulk. Cerebellum: Normal finger to nose bilaterally. Sensation: Sensation is normal to touch throughout. Reflexes (right/left): 2+ throughout upper while right lower is 1+ Plantars is mute over the right. Results - Laboratory Findings CBC and BMP: 05/24/22 05:58 05/25/22 11:09 Abnormal Lab Findings: Abnormal Labs 05/22/22 05/22/22 05/23/22 23:27 23:27 06:30 RBC Hgb Hct RDW 17.0 H Plt Count MPV Anion Gap BUN 21 H Est GFR (CKD-EPI)AfAm Est GFR (CKD-EPI)NonAf Glucose 117 H AST 50 H Total Protein Albumin Urine Appearance Cloudy H Urine Protein Trace H Ur Leukocyte Esterase Large H Urine WBC 21 H Urine Mucus Rare H 05/24/22 05/24/22 05:58 05:58 RBC 3.05 L Hgb 9.2 L Hct 28.7 L RDW 16.8 H Plt Count 134 L MPV 12.3 H Anion Gap 8.00 L BUN Est GFR (CKD-EPI)AfAm 42.2 L Est GFR (CKD-EPI)NonAf 36.4 L Glucose AST Total Protein 5.1 L Albumin 3.2 L Urine Appearance Urine Protein Ur Leukocyte Esterase Urine WBC Urine Mucus Assessment and Plan Assessment: Altered mental status likely due multifactorial: Predominately has hypertensive encephalopathy and component underlying UTI and medication effect (Luverne) and hospital stay---mentation is better today compared to yesterday but not back to baseline. Delerium due to above Fall and seem mechanical that resulted in left fibula and ankle/foot fracture Elevated hypertension as during this hospital stay systolic in 200's. Probable underlying acute UTI History of coronary artery disease status post CABG History of lower back spinal fusion in 2018 Plan: Ordered TSH, vitamin B12, folate, ammonia level. If patient continues to have altered mental status then we'll pursue MRI the brain, routine EEG. Orthopedic team is on board From a neurology perspective her mentation is improving compared to yesterday according to the daughter her mentation is not totally back to baseline. We'll continue to monitor We'll defer the rest of the medical measure the primary team. We'll defer her elevated hypertension management to the primary team. The plan is discussed with the patient's daughter and her nurse. Thank you for the consultation. Ruben Ames M.D. Neuro-Hospitalist Time with Patient: Greater than 30
[2022-05-25] MEDS: HYDROcodone/APAP 5-325MG 1 EACH TAB PO PRN ×3 (09:47→23:06)
[2022-05-25] MEDS: DOCUSATE 100 MG CAP PO PRN (09:47)
--- NOTE | 2022-05-25 11:06 | P.PN ---
Subjective Progress Note Date: 05/24/22 Principal diagnosis: Fall/left ankle fracture Possible UTI Uncontrolled hypertension 77-year-old female presents to the emergency department after turning and tripped in her kitchen. When this happened she came down on her left knee and her foot folded under her. Patient complaining of left knee pain as well as left ankle and foot pain. Patient recalls the incident, she did not hit her head. She is denying any head pain, no headache, no neck pain. No chest pain or shortness of breath. There was no preceding symptomology. Patient seen and evaluated in room at bedside; scheduled for surgery this afternoon; blood pressure has remained to be elevated; we will add clonidine 0.2 mg twice a day and continue to use IV hydralazine; we will plan to monitor blood pressure closely and make further adjustments accordingly Objective - Vital Signs Vital signs: Vital Signs Temp 97.9 F 05/24/22 08:00 Pulse 52 L 05/24/22 08:00 Resp 15 05/24/22 08:00 BP 191/69 05/24/22 08:00 Pulse Ox 93 L 05/24/22 08:00 FiO2 Intake & Output 05/23/22 05/24/22 05/24/22 18:59 06:59 18:59 Output Total 200 400 Balance -200 -400 Output: Urine 200 400 Other: Voiding Method External Catheter - Exam General appearance: alert, in distress, obese Head exam: Present: atraumatic, normocephalic, normal inspection Eye exam: Present: normal appearance, PERRL, EOMI. Absent: scleral icterus, conjunctival injection, periorbital swelling ENT exam: Present: normal exam, normal oropharynx, mucous membranes moist, normal external ear exam. Absent: mucous membranes dry Neck exam: Present: normal inspection, full ROM. Absent: tenderness, meningismus, lymphadenopathy Respiratory exam: Present: normal lung sounds bilaterally. Absent: respiratory distress, wheezes, rales, rhonchi, stridor Cardiovascular Exam: Present: regular rate, normal rhythm, normal heart sounds. Absent: systolic murmur, diastolic murmur, rubs, gallop, clicks GI/Abdominal exam: Present: soft, normal bowel sounds. Absent: distended, tenderness, guarding, rebound, rigid Extremities exam: Present: normal inspection, tenderness (Tenderness and lateral aspect of the left ankle, no break in skin integrity, no erythema. Pulses are intact. Mild tenderness to the dorsum of the foot and anterior aspect of her left knee.), normal capillary refill, other (Pelvis is stable, range of motion full in all other major joints. Full muscle strength Zollar major muscle groups.). Absent: full ROM (Range of motion limited in regards to left ankle), pedal edema, joint swelling, calf tenderness - Labs CBC & Chem 7: 05/24/22 05:58 05/24/22 05:58 Labs: Microbiology - Last 24 Hours (Table) 05/23/22 06:30 Urine Culture - Preliminary Urine,Voided Assessment and Plan Assessment: 1. Fall/left ankle fracture - Continue with current pain control regimen; patient is scheduled for surgery this afternoon - Hold off on DVT prophylaxis to after surgery stent 2. Possible UTI; patient remains on IV Rocephin; urine culture is pending 2. Accelerated hypertension; patient has been placed on clonidine 0.2 mg twice a day along with IV hydralazine to be used when necessary; patient has been continued on Coreg 3.125 mg twice a day and Imdur 30 mg daily 3. Coronary artery disease/CHF; remains stable on aspirin, beta blockers and statin therapy; Imdur 30 mg daily; continue with home dose of Bumex 4. Hyperlipidemia; currently not on any statin therapy 5. Osteoarthritis/rheumatoid arthritis; methotrexate 20 mg weekly DVT prophylaxis; SCDs CODE STATUS; full code
[2022-05-25 12:11] LABS: African American GFR (CKD) 58 (>60 ml/min/1.73 sqM); Anion Gap 7 mmol/L; Blood Urea Nitrogen 21 mg/dL (7-17); Calcium 8.8 mg/dL (8.4-10.2); Carbon Dioxide 23 mmol/L (22-30); Chloride 107 mmol/L (98-107); Glucose 136 mg/dL (74-99); Non-African American GFR(CKD) 50 (>60 ml/min/1.73 sqM); Potassium 4.3 mmol/L (3.5-5.1); Sodium 137 mmol/L (137-145)
[2022-05-25 12:36] LABS: Anisocytosis Slight; Basophils % (A) 0 %; Eosinophils # (A) 0.1 k/uL (0-0.7); Eosinophils % (A) 2 %; HCT 28.8 % (34.0-46.0); Lymphocytes % (A) 21 %; MCH 30.2 pg (25.0-35.0); MCHC 32.9 g/dL (31.0-37.0); MCV 91.8 fL (80.0-100.0); Mean Platelet Volume 10.6; Monocytes # (A) 0.2 k/uL (0-1.0); Monocytes % (A) 3 %; Neutrophils # (A) 3.4 k/uL (1.3-7.7); Neutrophils % (A) 72 %; Platelet Count 123 k/uL (150-450); RBC 3.14 m/uL (3.80-5.40); RDW 17.1 % (11.5-15.5); WBC 4.7 k/uL (3.8-10.6)
[2022-05-25 12:37] LABS: HGB 9.5 gm/dL (11.4-16.0)
[2022-05-25] MEDS: PREGABALIN 100 MG CAP PO SCH ×2 (15:37→22:59)
[2022-05-25] MEDS: ASPIRIN 81 MG PO SCH (22:59)
[2022-05-25] MEDS: MIRTAZAPINE 15 MG TAB PO SCH (22:59)
[2022-05-26] MEDS: MULTIVITAMINS, THERA 1 EACH TAB PO SCH (09:26)
[2022-05-26] MEDS: FAMOTIDINE 20 MG TAB PO SCH (09:26)
[2022-05-26] MEDS: carvediloL 3.125 MG TAB PO SCH ×2 (09:26→17:13)
[2022-05-26] MEDS: guaiFENesin 600 MG TABLET.ER PO SCH ×2 (09:26→21:00)
[2022-05-26] MEDS: POTASSIUM CHLORIDE ER 20 MEQ TAB.ER PO SCH (09:27)
[2022-05-26] MEDS: ISOSORBIDE MONONITRATE ER 30 MG TAB.ER.24H PO SCH (09:27)
[2022-05-26] MEDS: FOLIC ACID 1 MG TAB PO SCH (09:27)
[2022-05-26] MEDS: BUMETANIDE 0.5 MG TABLET PO SCH (09:28)
[2022-05-26] MEDS: ERGOCALCIFEROL 1,250 MCG (50,000 IU) CAPSULE PO SCH (09:28)
[2022-05-26] MEDS: HEPARIN SODIUM,PORCINE/PF 5,000 UNIT/0.5 ML SYRINGE SQ SCH ×2 (09:28→21:00)
[2022-05-26 09:31] LABS: Basophils # (A) 0.02 X 10*3/uL (0.00-0.10); Basophils % (A) 0.4 %; Eosinophils % (A) 3.8 %; HCT 30.8 % (37.2-46.3); HGB 9.7 g/dL (12.0-15.0); Immature Grans, Automated 0.4 %; Lymphocytes # (A) 1.38 X 10*3/uL (0.90-5.00); Lymphocytes % (A) 26.5 %; MCHC 31.5 g/dL (32.0-37.0); MCV 95.4 fL (80.0-97.0); Mean Platelet Volume 12.3 fL (9.5-12.2); Monocytes # (A) 0.54 X 10*3/uL (0.20-1.00); Monocytes % (A) 10.4 %; NRBC Per 100 WBC 0 /100 WBCS (0.0-0.0); Neutrophils # (A) 3.04 X 10*3/uL (1.80-7.70); Neutrophils % (A) 58.5 %; Platelet Count 120 X 10*3/uL (140-440); RBC 3.23 X 10*6/uL (4.10-5.20); RDW 17.2 % (11.5-14.5)
[2022-05-26 09:46] LABS: African American GFR (CKD) 53.5 (60.0-200.0); Anion Gap 9.1 mmol/L (10.00-18.00); BUN/Creat Ratio 17.65 Ratio (12.00-20.00); Blood Urea Nitrogen 20.3 mg/dL (9.0-27.0); Calcium 9.1 mg/dL (8.7-10.3); Carbon Dioxide 21.9 mmol/L (20.0-27.5); Non-African American GFR(CKD) 46.2 (60.0-200.0); Potassium 4.6 mmol/L (3.5-5.5)
--- NOTE | 2022-05-26 09:58 | P.PN ---
Subjective Progress Note Date: 05/25/22 Principal diagnosis: Fall/left ankle fracture Possible UTI Uncontrolled hypertension 77-year-old female presents to the emergency department after turning and tripped in her kitchen. When this happened she came down on her left knee and her foot folded under her. Patient complaining of left knee pain as well as left ankle and foot pain. Patient recalls the incident, she did not hit her head. She is denying any head pain, no headache, no neck pain. No chest pain or shortness of breath. There was no preceding symptomology. Patient seen and evaluated in room at bedside; scheduled for surgery this afternoon; blood pressure has remained to be elevated; we will add clonidine 0.2 mg twice a day and continue to use IV hydralazine; we will plan to monitor blood pressure closely and make further adjustments accordingly 05/25/2022 Patient is seen and evaluated with family at bedside; patient is awake alert and oriented; propped up in bed and eating lunch; responding to questions appropriately; patient aware surgery postponed due to mental status change Vital signs stable temperature 97.9, pulse 62, respirations 16 and blood pressure of 153/49 Orthopedic surgery on board for post trimalleolar left ankle fracture; surgery postponed due to altered mental status; orthopedic surgery will be reevaluated later today with plans for either surgery next week or nonoperative treatment Recommended to continue to ice and elevate left ankle; continue with pain control Blood pressures currently stable; we will continue to monitor closely and make recommendations Objective - Vital Signs Vital signs: Vital Signs Temp 97.9 F 05/25/22 08:00 Pulse 68 05/25/22 09:08 Resp 16 05/25/22 08:00 BP 153/49 05/25/22 08:00 Pulse Ox 96 05/25/22 08:56 FiO2 Intake & Output 05/24/22 05/25/22 05/25/22 18:59 06:59 18:59 Intake Total 50 Output Total 1100 250 Balance -1050 -250 Intake: IV 50 Output: Urine 1100 250 Other: Voiding Method External Catheter External Catheter # Voids 2 - Exam General appearance: alert, in distress, obese Head exam: Present: atraumatic, normocephalic, normal inspection Eye exam: Present: normal appearance, PERRL, EOMI. Absent: scleral icterus, conjunctival injection, periorbital swelling ENT exam: Present: normal exam, normal oropharynx, mucous membranes moist, normal external ear exam. Absent: mucous membranes dry Neck exam: Present: normal inspection, full ROM. Absent: tenderness, meningismus, lymphadenopathy Respiratory exam: Present: normal lung sounds bilaterally. Absent: respiratory distress, wheezes, rales, rhonchi, stridor Cardiovascular Exam: Present: regular rate, normal rhythm, normal heart sounds. Absent: systolic murmur, diastolic murmur, rubs, gallop, clicks GI/Abdominal exam: Present: soft, normal bowel sounds. Absent: distended, tenderness, guarding, rebound, rigid Extremities exam: Present: normal inspection, tenderness (Tenderness and lateral aspect of the left ankle, no break in skin integrity, no erythema. Pulses are intact. Mild tenderness to the dorsum of the foot and anterior aspect of her left knee.), normal capillary refill, other (Pelvis is stable, range of motion full in all other major joints. Full muscle strength Zollar major muscle groups.). Absent: full ROM (Range of motion limited in regards to left ankle), pedal edema, joint swelling, calf tenderness - Labs CBC & Chem 7: 05/26/22 04:26 05/26/22 04:26 Labs: Microbiology - Last 24 Hours (Table) 05/23/22 06:30 Urine Culture - Final Urine,Voided Assessment and Plan Assessment: 1. Fall/left ankle fracture - Continue with current pain control regimen; patient is scheduled for surgery this afternoon - Hold off on DVT prophylaxis to after surgery stent 2. Possible UTI; patient remains on IV Rocephin; urine culture is pending 2. Accelerated hypertension; patient has been placed on clonidine 0.2 mg twice a day along with IV hydralazine to be used when necessary; patient has been continued on Coreg 3.125 mg twice a day and Imdur 30 mg daily 3. Coronary artery disease/CHF; remains stable on aspirin, beta blockers and statin therapy; Imdur 30 mg daily; continue with home dose of Bumex 4. Hyperlipidemia; currently not on any statin therapy 5. Osteoarthritis/rheumatoid arthritis; methotrexate 20 mg weekly DVT prophylaxis; SCDs CODE STATUS; full code
[2022-05-26] MEDS: DILTIAZEM ORAL 30 MG TAB PO SCH ×3 (10:46→21:00)
--- NOTE | 2022-05-26 11:18 | P.PN ---
Subjective Progress Note Date: 05/26/22 Principal diagnosis: Left ankle fracture This is a 77 year-old female with a left ankle trimalleolar fracture. Her surgery was canceled 2 days ago due to mental status changes. A brain CT was preformed and was negative for CVA or bleed. She has been evaluated by neurology. The patient is much more alert today. She states her pain is moderately controlled. Objective - Vital Signs Vital signs: Vital Signs Temp 98.5 F 05/26/22 08:00 Pulse 79 05/26/22 10:41 Resp 17 05/26/22 08:00 BP 152/54 05/26/22 10:41 Pulse Ox 92 L 05/26/22 08:00 FiO2 Intake & Output 05/25/22 05/26/22 05/26/22 18:59 06:59 18:59 Intake Total 120 120 Output Total 600 400 Balance -480 -400 120 Intake: Oral 120 120 Output: Urine 600 400 Other: Voiding Method External Catheter External Catheter - Exam The patient is a 77-year-old female in no acute distress. She is alert and oriented x3. Exam of the left leg reveals a well fitting splint. Her toes are warm and well perfused. She is able to wiggle her toes without difficulty. - Labs CBC & Chem 7: 05/26/22 04:26 05/26/22 04:26 Labs: Abnormal Lab Results - Last 24 Hours (Table) 05/25/22 05/25/22 05/26/22 Range/Units 11:09 11:09 04:26 RBC 3.14 L 3.23 L (3.80-5.40) m/uL Hgb 9.5 L D 9.7 L (11.4-16.0) gm/dL Hct 28.8 L 30.8 L (34.0-46.0) % MCHC 31.5 L (32.0-37.0) g/dL RDW 17.1 H 17.2 H (11.5-15.5) % Plt Count 123 L 120 L (150-450) k/uL MPV 12.3 H (9.5-12.2) fL Anion Gap (10.00-18.00) mmol/L BUN 21 H (7-17) mg/dL Creatinine 1.08 H (0.52-1.04) mg/dL Est GFR (CKD-EPI)AfAm (60.0-200.0) Est GFR (CKD-EPI)NonAf (60.0-200.0) Glucose 136 H (74-99) mg/dL 05/26/22 Range/Units 04:26 RBC (3.80-5.40) m/uL Hgb (11.4-16.0) gm/dL Hct (34.0-46.0) % MCHC (32.0-37.0) g/dL RDW (11.5-15.5) % Plt Count (150-450) k/uL MPV (9.5-12.2) fL Anion Gap 9.10 L (10.00-18.00) mmol/L BUN (7-17) mg/dL Creatinine (0.52-1.04) mg/dL Est GFR (CKD-EPI)AfAm 53.5 L (60.0-200.0) Est GFR (CKD-EPI)NonAf 46.2 L (60.0-200.0) Glucose (74-99) mg/dL Assessment and Plan (1) Closed trimalleolar fracture of ankle Current Visit: Yes Status: Acute Onset Date: ~05/22/22 Code(s): S82.853A - DISPLACED TRIMALLEOLAR FRACTURE OF UNSP LOWER LEG, INIT SNOMED Code(s): 1186282 (2) Left ankle pain Current Visit: Yes Status: Acute Code(s): M25.572 - PAIN IN LEFT ANKLE AND JOINTS OF LEFT FOOT SNOMED Code(s): 520804876 (3) Multiple falls Current Visit: Yes Status: Acute Code(s): R29.6 - REPEATED FALLS SNOMED Code(s): 692567741 Plan: The clinical findings were discussed with the patient. The case was discussed with Dr. Clements this morning. The patient seems to be improving mentally. Dr. Clements will be in later today to discuss surgery with the patient and her daughter. Continue to ice and elevate left ankle. Continue pain control as needed. We will continue to follow the patient closely.
--- NOTE | 2022-05-26 12:12 | P.PN ---
Subjective Progress Note Date: 05/26/22 The patient is seen at baseline and she is feeling better. Per the nurse she feels her mentation is improving. I spoke with the daughter via phone and she feels her mentation has been improving when she saw her last last night. Objective - Vital Signs Vital signs: Vital Signs Temp 98.5 F 05/26/22 08:00 Pulse 79 05/26/22 10:41 Resp 17 05/26/22 08:00 BP 152/54 05/26/22 10:41 Pulse Ox 92 L 05/26/22 08:00 FiO2 Intake & Output 05/25/22 05/26/22 05/26/22 18:59 06:59 18:59 Intake Total 120 120 Output Total 600 400 Balance -480 -400 120 Intake: Oral 120 120 Output: Urine 600 400 Other: Voiding Method External Catheter External Catheter - Exam GENERAL: The patient is lying in bed and is not in acute distress. NEUROLOGICAL: Higher mental function: The patient is awake, alert, oriented to self, place. She is oriented to month but for year she stated [id number]. She correctly name objects (pen, watch and glasses). Patient is following simple commands. No aphasia and no neglect. Cranial nerves: The pupils are round, equal and reactive to light and accommodation. Visual dennison are full to confrontation throughout. Extraocular movement is intact no nystagmus is noted. Facial sensation is normal to touch throughout. The facial strength is possible slightly right nasolabial flattening (but per daughter at baseline). Hearing is mildly to moderate decreased bilaterally to hand rub. Tongue is midline and moved [id number] without any difficulty. No dysarthria is noted. Shoulder shrug is normal bilaterally. Motor: The strength is limited over the left lower since is in a cast and in pain but was able to wiggle her toes. Otherwise 5 over 5 throughout. Normal tone and bulk. Cerebellum: Normal finger to nose bilaterally. Sensation: Sensation is normal to touch throughout. Reflexes (right/left): 2+ throughout upper while right lower is 1+ Plantars is mute over the right. Some other workup during this hospital visit consisted of: Her ammonia level is less than 9 Vitamin B12 is 429 TSH is the 0.543 CT of the head is reported as negative CT scan of the brain. No significant change. Mild atrophy. I personally reviewed the CT of the head and there is no acute subacute ischemia there is no temporal, hemorrhage. I do not feel the patient has any significant atrophy more than her age. There is no encephalomalacia that was largely appreciated. Her UA was likely suggestive of urine tract infection. - Labs CBC & Chem 7: 05/26/22 04:26 05/26/22 04:26 Labs: Abnormal Lab Results - Last 24 Hours (Table) 05/25/22 05/25/22 05/26/22 Range/Units 11:09 11:09 04:26 RBC 3.14 L 3.23 L (3.80-5.40) m/uL Hgb 9.5 L D 9.7 L (11.4-16.0) gm/dL Hct 28.8 L 30.8 L (34.0-46.0) % MCHC 31.5 L (32.0-37.0) g/dL RDW 17.1 H 17.2 H (11.5-15.5) % Plt Count 123 L 120 L (150-450) k/uL MPV 12.3 H (9.5-12.2) fL Anion Gap (10.00-18.00) mmol/L BUN 21 H (7-17) mg/dL Creatinine 1.08 H (0.52-1.04) mg/dL Est GFR (CKD-EPI)AfAm (60.0-200.0) Est GFR (CKD-EPI)NonAf (60.0-200.0) Glucose 136 H (74-99) mg/dL 05/26/22 Range/Units 04:26 RBC (3.80-5.40) m/uL Hgb (11.4-16.0) gm/dL Hct (34.0-46.0) % MCHC (32.0-37.0) g/dL RDW (11.5-15.5) % Plt Count (150-450) k/uL MPV (9.5-12.2) fL Anion Gap 9.10 L (10.00-18.00) mmol/L BUN (7-17) mg/dL Creatinine (0.52-1.04) mg/dL Est GFR (CKD-EPI)AfAm 53.5 L (60.0-200.0) Est GFR (CKD-EPI)NonAf 46.2 L (60.0-200.0) Glucose (74-99) mg/dL Assessment and Plan Assessment: Altered mental status likely due multifactorial: Predominately has hypertensive encephalopathy and component underlying UTI and medication effect ([place]) ---mentation improved Fall and seem mechanical that resulted in left fibula and ankle/foot fracture Elevated hypertension as during this hospital stay systolic in 200's. Probable underlying acute UTI History of coronary artery disease status post CABG History of lower back spinal fusion in 2018 Plan: Pending folate level. If deficient then recommend folic acid 1mg daily. If patient continues to have altered mental status then we'll pursue MRI the brain, routine EEG but for now not needed since mentation improved. Orthopedic team is on board We'll defer the rest of the medical management to the primary team From a neurologic perspective her patient has improved and the daughter agrees as well as the nurse. The plan is discussed with the patient's daughter and her nurse. From a neurologic perspective no further neurological workup. We'll sign off. Please reconsult if needed. Dr. Burdick will start neurology service tomorrow if needed. Ruben Ames M.D. Neuro-Hospitalist Time with Patient: Less than 30
[2022-05-26] MEDS: HYDROcodone/APAP 5-325MG 1 EACH TAB PO PRN (12:24)
[2022-05-26] MEDS: DOCUSATE 100 MG CAP PO PRN (12:25)
--- NOTE | 2022-05-26 13:53 | P.PN ---
Subjective Progress Note Date: 05/26/22 Principal diagnosis: Fall/left ankle fracture Possible UTI Uncontrolled hypertension 77-year-old female presents to the emergency department after turning and tripped in her kitchen. When this happened she came down on her left knee and her foot folded under her. Patient complaining of left knee pain as well as left ankle and foot pain. Patient recalls the incident, she did not hit her head. She is denying any head pain, no headache, no neck pain. No chest pain or shortness of breath. There was no preceding symptomology. Patient seen and evaluated in room at bedside; scheduled for surgery this afternoon; blood pressure has remained to be elevated; we will add clonidine 0.2 mg twice a day and continue to use IV hydralazine; we will plan to monitor blood pressure closely and make further adjustments accordingly 05/25/2022 Patient is seen and evaluated with family at bedside; patient is awake alert and oriented; propped up in bed and eating lunch; responding to questions appropriately; patient aware surgery postponed due to mental status change Vital signs stable temperature 97.9, pulse 62, respirations 16 and blood pressure of 153/49 Orthopedic surgery on board for post trimalleolar left ankle fracture; surgery postponed due to altered mental status; orthopedic surgery will be reevaluated later today with plans for either surgery next week or nonoperative treatment Recommended to continue to ice and elevate left ankle; continue with pain control Blood pressures currently stable; we will continue to monitor closely and make recommendations 05/26/2022 Patient is seen and evaluated with family at bedside; patient is awake and alert and voices no complaints; nursing staff to bring to my attention that family is concerned about possible UTI Blood pressure is reviewed and remains elevated; we will add a small dose of Cardizem 30 mg 3 times a day and monitor blood pressure closely for further adj ustment Final urine culture reveals skin and genital isiah; no antibiotic therapy started Family is concerned about possible cough; patient has not reported any cough or sputum production; we will obtain chest x-ray Orthopedic surgery on board for ankle fracture; recommending to keep ankle elevated improved swelling; final decision on possible surgery is pending Objective - Vital Signs Vital signs: Vital Signs Temp 98.5 F 05/26/22 08:00 Pulse 62 05/26/22 08:00 Resp 17 05/26/22 08:00 BP 195/72 05/26/22 08:00 Pulse Ox 92 L 05/26/22 08:00 FiO2 Intake & Output 05/25/22 05/26/22 05/26/22 18:59 06:59 18:59 Intake Total 120 120 Output Total 600 400 Balance -480 -400 120 Intake: Oral 120 120 Output: Urine 600 400 Other: Voiding Method External Catheter External Catheter - Exam General appearance: alert, in distress, obese Head exam: Present: atraumatic, normocephalic, normal inspection Eye exam: Present: normal appearance, PERRL, EOMI. Absent: scleral icterus, conjunctival injection, periorbital swelling ENT exam: Present: normal exam, normal oropharynx, mucous membranes moist, normal external ear exam. Absent: mucous membranes dry Neck exam: Present: normal inspection, full ROM. Absent: tenderness, meningismus, lymphadenopathy Respiratory exam: Present: normal lung sounds bilaterally. Absent: respiratory distress, wheezes, rales, rhonchi, stridor Cardiovascular Exam: Present: regular rate, normal rhythm, normal heart sounds. Absent: systolic murmur, diastolic murmur, rubs, gallop, clicks GI/Abdominal exam: Present: soft, normal bowel sounds. Absent: distended, tenderness, guarding, rebound, rigid Extremities exam: Present: normal inspection, tenderness (Tenderness and lateral aspect of the left ankle, no break in skin integrity, no erythema. Pulses are intact. Mild tenderness to the dorsum of the foot and anterior aspect of her left knee.), normal capillary refill, other (Pelvis is stable, range of motion full in all other major joints. Full muscle strength Zollar major muscle groups.). Absent: full ROM (Range of motion limited in regards to left ankle), pedal edema, joint swelling, calf tenderness - Labs CBC & Chem 7: 05/26/22 04:26 05/26/22 04:26 Labs: Abnormal Lab Results - Last 24 Hours (Table) 05/25/22 05/25/22 05/26/22 Range/Units 11:09 11:09 04:26 RBC 3.14 L 3.23 L (3.80-5.40) m/uL Hgb 9.5 L D 9.7 L (11.4-16.0) gm/dL Hct 28.8 L 30.8 L (34.0-46.0) % MCHC 31.5 L (32.0-37.0) g/dL RDW 17.1 H 17.2 H (11.5-15.5) % Plt Count 123 L 120 L (150-450) k/uL MPV 12.3 H (9.5-12.2) fL Anion Gap (10.00-18.00) mmol/L BUN 21 H (7-17) mg/dL Creatinine 1.08 H (0.52-1.04) mg/dL Est GFR (CKD-EPI)AfAm (60.0-200.0) Est GFR (CKD-EPI)NonAf (60.0-200.0) Glucose 136 H (74-99) mg/dL 05/26/22 Range/Units 04:26 RBC (3.80-5.40) m/uL Hgb (11.4-16.0) gm/dL Hct (34.0-46.0) % MCHC (32.0-37.0) g/dL RDW (11.5-15.5) % Plt Count (150-450) k/uL MPV (9.5-12.2) fL Anion Gap 9.10 L (10.00-18.00) mmol/L BUN (7-17) mg/dL Creatinine (0.52-1.04) mg/dL Est GFR (CKD-EPI)AfAm 53.5 L (60.0-200.0) Est GFR (CKD-EPI)NonAf 46.2 L (60.0-200.0) Glucose (74-99) mg/dL Assessment and Plan Assessment: 1. Fall/left ankle fracture - Continue with current pain control regimen; patient is scheduled for surgery this afternoon - Hold off on DVT prophylaxis to after surgery stent 2. Possible UTI; patient remains on IV Rocephin; urine culture is pending 2. Accelerated hypertension; patient has been placed on clonidine 0.2 mg twice a day along with IV hydralazine to be used when necessary; patient has been continued on Coreg 3.125 mg twice a day and Imdur 30 mg daily 3. Coronary artery disease/CHF; remains stable on aspirin, beta blockers and statin therapy; Imdur 30 mg daily; continue with home dose of Bumex 4. Hyperlipidemia; currently not on any statin therapy 5. Osteoarthritis/rheumatoid arthritis; methotrexate 20 mg weekly DVT prophylaxis; SCDs CODE STATUS; full code
[2022-05-26] MEDS: PREGABALIN 100 MG CAP PO SCH ×2 (14:11→20:59)
--- NOTE | 2022-05-26 14:17 | XR ---
EXAMINATION TYPE: XR chest 1V portable DATE OF EXAM: 05/26/2022 COMPARISON: 04/17/2022 HISTORY: Cough TECHNIQUE: FINDINGS: There is no heart failure nor confluent pneumonic infiltrate. Costophrenic angles are clear . There are sternal wires. No pleural effusion. IMPRESSION: No active cardiopulmonary disease. No change.
--- NOTE | 2022-05-26 14:23 | P.PN ---
Subjective Progress Note Date: 05/26/22 Principal diagnosis: Left trimalleolar ankle fracture The patient was visited at bedside. Her daughter, who is the primary contact lens lathe operator, as well as her and son were present during today's visit. Neurology was consulted due to her altered mental status. A computed tomography scan did not indicate any significant pathology. Neurology had felt that she had improved and that there was no known cause for the alteration other than possible hypertension and the combined UTI. At this point neurology has signed off according to their 05/26/2022-soaked note. They had recommended an MRI of the brain if she continues to have alteration in mental status. Talk into the daughter today, she felt that her mental status was worse today than it was yesterday. Yesterday apparently the patient was very lucid and could easily make decisions. However today, this is not the case. The daughter did not feel comfortable making a decision to have surgery of the left ankle. She has not been able to talk with internal medicine or neurology about her concerns. Objective - Vital Signs Vital signs: Vital Signs Temp 98.5 F 05/26/22 08:00 Pulse 79 05/26/22 10:41 Resp 17 05/26/22 08:00 BP 152/54 05/26/22 10:41 Pulse Ox 92 L 05/26/22 08:00 FiO2 Intake & Output 05/25/22 05/26/22 05/26/22 18:59 06:59 18:59 Intake Total 120 120 Output Total 600 400 Balance -480 -400 120 Intake: Oral 120 120 Output: Urine 600 400 Other: Voiding Method External Catheter External Catheter External Catheter - Exam Patient lying in bed comfortably. She is awake and somewhat alert. She is able to respond to some questions however there were delays in her answers and sometimes the patient stopped verbalizing. Lower extremity examination: The splint is still in place. There is no evidence of significant loosening. Capillary refill time is intact to all digits on the left foot. Patient is able to wiggle her toes on command. Admits to feeling lightheaded touch in her toes. - Labs CBC & Chem 7: 05/26/22 04:26 05/26/22 04:26 Labs: Abnormal Lab Results - Last 24 Hours (Table) 05/26/22 05/26/22 Range/Units 04:26 04:26 RBC 3.23 L (4.10-5.20) X 10*6/uL Hgb 9.7 L (12.0-15.0) g/dL Hct 30.8 L (37.2-46.3) % MCHC 31.5 L (32.0-37.0) g/dL RDW 17.2 H (11.5-14.5) % Plt Count 120 L (140-440) X 10*3/uL MPV 12.3 H (9.5-12.2) fL Anion Gap 9.10 L (10.00-18.00) mmol/L Est GFR (CKD-EPI)AfAm 53.5 L (60.0-200.0) Est GFR (CKD-EPI)NonAf 46.2 L (60.0-200.0) Assessment and Plan (1) Closed trimalleolar fracture of ankle Narrative/Plan: Had an extensive conversation with family today. The daughters are comfortable with pursuing surgery of the left ankle at this time. She is concerned with the dramatic highs and lows of her mental status. We discussed the risks and benefits of both surgical intervention and conservative management of the fracture. The surgical risk would be an adverse reaction to the anesthesia. Th ere is also a possibility the surgery could get canceled at that time due to hypertension. Conservative management, which would involve cast placement, would require more time nonweightbearing which could lead to further deconditioning. I explained to the family that I would respect her wishes whether they wanted to pursue surgery or not. However the decision for surgery needs to be made within the next week and prior to discharge to rehab facility. If she is discharged to rehab facility and then the family would like to go with surgery for the fracture, that she would have to be readmitted prior to discharge back to rehab. I will continue to monitor the progress notes. I advised the daughter to contact the nurse if she decides to move forward with surgery so that I can go forward with the scheduled procedure. Current Visit: Yes Status: Acute Onset Date: ~05/22/22 Code(s): S82.853A - DISPLACED TRIMALLEOLAR FRACTURE OF UNSP LOWER LEG, INIT SNOMED Code(s): 4864772
[2022-05-26] MEDS: metHOTREXate sodium 2.5 MG TAB PO SCH (15:08)
[2022-05-26 17:25] LABS: Glucose,Whole Blood 125 mg/dL (70-110)
[2022-05-26 18:02] LABS: Anisocytosis Slight; Basophils % (A) 0 %; Eosinophils # (A) 0.2 k/uL (0-0.7); Eosinophils % (A) 4 %; HCT 31.4 % (34.0-46.0); HGB 10.1 gm/dL (11.4-16.0); Hypochromasia Slight; Lymphocytes % (A) 19 %; MCH 29.6 pg (25.0-35.0); MCV 92.6 fL (80.0-100.0); Mean Platelet Volume 10.5; Monocytes # (A) 0.4 k/uL (0-1.0); Monocytes % (A) 9 %; Neutrophils # (A) 3.2 k/uL (1.3-7.7); Neutrophils % (A) 65 %; Platelet Count 125 k/uL (150-450); Poikilocytosis Slight; RDW 17.6 % (11.5-15.5)
[2022-05-26 18:11] LABS: Partial Thromboplastin Time 25.6 sec (22.0-30.0); Prothrombin Time 10.7 sec (9.0-12.0)
[2022-05-26 18:20] LABS: ALT 35 U/L (4-34); AST 50 U/L (14-36); African American GFR (CKD) 42 (>60 ml/min/1.73 sqM); Albumin 3.3 g/dL (3.5-5.0); Albumin/Globulin Ratio 1.3; Alkaline Phosphatase 94 U/L (38-126); Anion Gap 8 mmol/L; Blood Urea Nitrogen 24 mg/dL (7-17); Calcium 9.1 mg/dL (8.4-10.2); Carbon Dioxide 23 mmol/L (22-30); Chloride 105 mmol/L (98-107); Globulin 2.5 g/dL; Glucose 117 mg/dL (74-99); Non-African American GFR(CKD) 37 (>60 ml/min/1.73 sqM); Potassium 4.9 mmol/L (3.5-5.1); Sodium 136 mmol/L (137-145); Total Bilirubin 0.3 mg/dL (0.2-1.3); Total Protein 5.8 g/dL (6.3-8.2)
--- NOTE | 2022-05-26 18:25 | CT ---
EXAMINATION TYPE: CT brain wo con for TPA DATE OF EXAM: 05/26/2022 COMPARISON: 05/24/2022 HISTORY: AMS CT DLP: 1113.4 mGycm Automated exposure control for dose reduction was used. There is cerebral cortical atrophy. There is no mass effect or midline shift. No sign of intracranial hemorrhage. Calvarium is intact. There is normal aeration of the mastoid sinuses. IMPRESSION: Cerebral atrophy. No acute intracranial abnormality. No change.
--- NOTE | 2022-05-26 18:43 | CT ---
EXAMINATION TYPE: CODE STROKE: CTA head neck DATE OF EXAM: 05/26/2022 COMPARISON: None HISTORY: Neuro deficit, acute, stroke suspected CT DLP: 629.6 mGycm Automated exposure control for dose reduction was used. CONTRAST: Performed with IV Contrast, patient injected with 65 mL of Isovue 370. Images obtained from the aortic arch to the vertex of the brain with the IV contrast. There are Three -D postprocessed images. There is normal branching pattern of the great vessels off the aortic arch. There is arterial flow in both subclavian arteries. There is plaque formation at the aortic arch. There is arterial flow in th e common internal and external carotid arteries bilaterally. There is plaque formation at the origin of the left internal card artery and estimated 50% luminal stenosis. No significant plaque seen at th e right carotid artery bifurcation. There is arterial flow in both vertebral arteries. There is no ev idence of carotid or vertebral artery aneurysm or dissection. There is arterial flow in the vertebral basilar artery system. There is arterial flow in the anterior middle and posterior cerebral arteries bilaterally. No mass ef fect. No evidence of intracranial aneurysm or neovascularity. No evidence of intracranial arterial st enosis. There is normal enhancement of the venous sinuses. IMPRESSION: Negative CT angiogram of the brain. There is approximate 50% stenosis at the origin of the left internal carotid artery.
[2022-05-26] MEDS ORDERED: LORazepam 1 MG/0.5 ML VIAL IV ONE (19:02)
[2022-05-26] MEDS: ASPIRIN 81 MG PO SCH (20:59)
[2022-05-26] MEDS: MIRTAZAPINE 15 MG TAB PO SCH (20:59)
[2022-05-27] MEDS ORDERED: hydrALAZINE HCL 20 MG/ML 1 ML VIAL IVP PRN (03:07)
[2022-05-27] MEDS ORDERED: cloNIDine 0.2 MG/24HR PATCH TRANSDERM SCH (05:00)
[2022-05-27] MEDS: cloNIDine 0.3 MG/24HR PATCH TRANSDERM SCH (07:00)
[2022-05-27] MEDS: FOLIC ACID 1 MG TAB PO SCH (09:15)
[2022-05-27] MEDS: guaiFENesin 600 MG TABLET.ER PO SCH ×2 (09:15→20:09)
[2022-05-27] MEDS: ISOSORBIDE MONONITRATE ER 30 MG TAB.ER.24H PO SCH (09:15)
[2022-05-27] MEDS: FAMOTIDINE 20 MG TAB PO SCH (09:15)
[2022-05-27] MEDS: POTASSIUM CHLORIDE ER 20 MEQ TAB.ER PO SCH (09:15)
[2022-05-27] MEDS: MULTIVITAMINS, THERA 1 EACH TAB PO SCH (09:15)
[2022-05-27] MEDS: DILTIAZEM ORAL 30 MG TAB PO SCH (09:15)
[2022-05-27] MEDS: HEPARIN SODIUM,PORCINE/PF 5,000 UNIT/0.5 ML SYRINGE SQ SCH ×2 (09:16→20:09)
[2022-05-27] MEDS: carvediloL 3.125 MG TAB PO SCH ×2 (09:25→11:53)
[2022-05-27] MEDS: BUMETANIDE 0.5 MG TABLET PO SCH (09:25)
--- NOTE | 2022-05-27 12:33 | CA ---
Transthoracic Echo Report Name: Alyssa Roca Age: 77 Gender: F : 1945 Exam Date: 05/27/2022 11:33 Exam Location: [facility] Ht (in): 63 Wt (lb): 190 Ordering Physician: Brady Klein MD ([id number]) Attending/Referring Phys: Illuminating Engineer Christel Stewart RDCS Procedure CPT: Indications: elevated troponin Cardiac Hx: limited study Technical Quality: Fair Contrast 1: Total Dose (mL): Contrast 2: Total Dose (mL): MEASUREMENTS (Male / Female) Normal Values M-MODE Aortic Root Diameter MM 3.0 cm DOPPLER AV Peak Velocity 211.8 cm/s AV Peak Gradient 18.0 mmHg AV Mean Velocity 150.8 cm/s AV Mean Gradient 10.1 mmHg AV Velocity Time Integral 49.4 cm AI Peak Velocity 253.5 cm/s AI Peak Gradient 25.7 mmHg AI Pressure Half Time 679.1 ms FINDINGS Left Ventricle Left ventricular ejection fraction is estimated at 55-60 %. Right Ventricle Right Atrium Left Atrium Mitral Valve Mitral annular calcification. Mild mitral regurgitation. Aortic Valve Mild aortic regurgitation. Aortic sclerosis Tricuspid Valve Structurally normal tricuspid valve. Mild tricuspid regurgitation. Pulmonic Valve Pulmonic valve not well visualized. Pericardium Normal pericardium. No pericardial effusion. Aorta CONCLUSIONS 1. Normal size and systolic function 2. Mild mitral, aortic and tricuspid regurgitation Previewed by: Dr. Bryan Chavarria MD (Electronically Signed) Final Date: 27 May 2022 12:32
[2022-05-27] MEDS ORDERED: IPRATROPIUM-ALBUTEROL 3 ML NEB INHALATION PRN (12:40)
--- NOTE | 2022-05-27 13:02 | MR ---
EXAMINATION TYPE: MR brain wo/w con DATE OF EXAM: 05/27/2022 COMPARISON: CT brain from 1 day earlier HISTORY: Altered Mental Status r/o stroke. Acute onset neuro deficit. TECHNIQUE: Multiplanar, multisequence images of the brain and brainstem is performed without and with IV contras t, utilizing 9 mL intravenous Gadavist . FINDINGS: Diffusion weighted images demonstrate no evidence of a recent infarct or other diffusion ab normality. There is [id number] ventricular sulcal prominence. Some scattered foci of T2 hyperi ntensity are seen throughout the white matter bilaterally. Lesions are nonspecific in appearance and distribution. Midline structures demonstrate empty sella morphology. The craniocervical junction appears within no rmal limits. Post contrast images demonstrate no abnormal intraparenchymal enhancement. There is enh ancing 1.5 x 0.7 cm lesion left frontal calvarium axial image 22 corresponding to lytic lesion on CT. The dural venous sinuses appear patent. The visualized sinuses are clear and the globes are intact. IMPRESSION: No MRI evidence for a recent infarct. Tpuf-[id number] diffuse cerebral atrophy and chron ic small vessel ischemic change is redemonstrated. Enhancing left frontal calvarial lesion correspond s to lytic lesion on CT. Differential includes metastatic disease versus possible myeloma deposit. Co rrelate clinically.
--- NOTE | 2022-05-27 13:50 | XR ---
EXAMINATION TYPE: XR chest 1V portable DATE OF EXAM: 05/27/2022 COMPARISON: 05/26/2022 HISTORY: Cough TECHNIQUE: Single frontal view of the chest is obtained. FINDINGS: There is no focal air space opacity, pleural effusion, or pneumothorax seen. The cardiac silhouette size is within normal limits. The osseous structures are intact. Coarsened interstitium with postsurgical change. IMPRESSION: Coarsened interstitium appears increased from the exam of 04/17/2022 likely representing a combination of chronic pulmonary fibrosis with some superimposed mild venous congestion or intersti tial pneumonitis.
[2022-05-27] MEDS: PREGABALIN 100 MG CAP PO SCH ×2 (14:04→20:10)
[2022-05-27] MEDS: amLODIPine 5 MG TAB PO SCH ×2 (14:04→20:09)
--- NOTE | 2022-05-27 14:30 | CONS ---
CONSULTATION HISTORY OF PRESENT ILLNESS: This is a 77-year-old lady with a known history of CAD, prior bypass surgery in 2007 with a SCHWAB to LAD, vein graft to the diagonal, obtuse marginal branch and distal RCA. She has hypertension, hyperlipidemia, rheumatoid arthritis, and was admitted to the hospital after an episode of fall and had some confusion issues. I was asked to see her because of a mildly elevated troponin. Patient apparently was admitted to the hospital on the after turning and twisting on her leg and falling. She has fracture of left fibula and surgery is also being considered. The patient's surgery was canceled because of elevated blood pressure and some confusion. At the time of my evaluation, she is able to answer questions but her daughter seems to fill in for most of the questions. She has history of CAD, but no evidence of angina. Last echo performed in the office in 2019 revealed good systolic function with an estimated ejection fraction of about 60% without pulmonary hypertension. There was mild mitral regurgitation. Last Lexiscan stress test was in April 2020, revealed good myocardial perfusion and function. The patient does not have any anginal symptoms, her troponin is 0.116. EKG revealed what seems to be a sinus mechanism with Wenckebach phenomenon. The patient is on Coreg 3.125 mg b.i.d. At the time of my evaluation, she is not in any distress. PAST MEDICAL HISTORY: Remarkable for, 1. CAD with prior bypass surgery. 2. Rheumatoid arthritis. 3. Hypertension. 4. Hyperlipidemia. 5. Episode of recent hospitalization with some degenerative joint disease as well. 6. At the time of my evaluation, the patient is resting comfortably without any symptoms. MEDICATIONS: At home include methotrexate, Coreg 3.125 mg b.i.d., potassium supplement, Imdur 30 mg daily, she is also on aspirin 81 mg daily, Bumex 0.5 mg b.i.d., and Mucinex. ALLERGIES: She is allergic to a number of medications, but most of these are intolerances. Her only allergy appears to be sulfa. PHYSICAL EXAMINATION: VITAL SIGNS: On examination, blood pressure is 170/80, pulse rate is about 80 per minute. HEENT: Unremarkable, fundus was not examined by me. NECK: Supple. There is JVD of 1 cm. No carotid bruit. HEART: Exam reveals S1, S2 with a short systolic murmur at left sternal border. LUNGS: Reveal bilateral decent air entry. ABDOMEN: Soft, nontender. EXTREMITIES: Lower extremities reveal diminished pulses, did not do a detailed examination. EKG revealed sinus mechanism with Wenckebach phenomenon. IMPRESSION: 1. Elevated troponin of unclear etiology. I doubt if we are dealing with any primary myocardial injury. 2. Probable underlying sick sinus syndrome with Wenckebach phenomena, on Coreg. 3. History of fall and fracture of left fibula. 4. Coronary artery disease, stable with prior bypass surgery. 5. Hypertension, under suboptimal control. 6. Hyperlipidemia. RECOMMENDATIONS: I am recommending that we will discontinue the Cardizem, hold Coreg, place on 5 mg b.i.d. of amlodipine. Check an additional troponin level and obtain echocardiogram. After we optimize the blood pressure control and ensure that LV function is well preserved on echo, she can proceed with surgery. I will await the results of the tests and effect of amlodipine. Thank you very much for the consult. JOAO / PRON: [id number] /
[2022-05-27] MEDS: IPRATROPIUM-ALBUTEROL 3 ML NEB INHALATION SCH ×2 (15:32→21:15)
[2022-05-27] MEDS: PIPERACILLIN-TAZOBACTAM 3.375 GM in SODIUM CHLORIDE 0.9% 100 ML IVPB SCH ×2 (15:53→23:02)
[2022-05-27] MEDS: HYDROcodone/APAP 5-325MG 1 EACH TAB PO PRN ×2 (16:25→23:01)
[2022-05-27] MEDS ORDERED: FUROSEMIDE 10 MG/ML 4 ML VIAL IV STA (17:08)
[2022-05-27] MEDS: ASPIRIN 81 MG PO SCH (20:09)
[2022-05-27] MEDS: MIRTAZAPINE 15 MG TAB PO SCH (20:10)
--- NOTE | 2022-05-27 22:07 | CT ---
EXAMINATION TYPE: CT chest abdomen wo con CT DLP: 1038.2 mGycm, Automated exposure control for dose reduction was used. DATE OF EXAM: 05/27/2022 9:31 PM COMPARISON: CT abdomen pelvis 04/14/2022 CLINICAL INDICATION:Female, 77 years old with history of possible mets;, obs for poss mets. pt unable to place arms above head Technique: Multiple axial images of the chest, abdomen were obtained. Two-dimensional coronal and sag ittal reconstructions were obtained. Contrast used: None Oral contrast used: without Oral Contrast Findings: 2 CHEST: LUNGS/ PLEURA: The lung parenchyma appears unremarkable. No focal consolidation, pneumothorax or pleu ral effusion. Fatty infiltration of the left lung apex. AIRWAY: Patent and unremarkable. HEART: Heart is mildly enlarged for size. MEDIASTINUM: No gross evidence of adenopathy. VASCULATURE: No aortic aneurysm. Atherosclerosis of the arterial vasculature along with the coronary arteries. MUSCULOSKELETAL: No acute osseous abnormalities. Sternotomy wires are present. There is slight increa sed kyphosis of the thoracic spine. SOFT TISSUES/LYMPH NODES: Unremarkable. LOWER NECK: No significant findings. ABDOMEN: ABDOMEN LIVER: Unremarkable GALLBLADDER AND BILE DUCTS: Gallbladder is surgically absent. PANCREAS: Unremarkable. SPLEEN: Unremarkable. ADRENAL GLANDS: Unremarkable. KIDNEYS AND URETERS: No evidence of hydronephrosis or renal calculus. Calcifications in the renal sin us on the left felt to be vasculature in etiology. PELVIS BLADDER: Unremarkable REPRODUCTIVE: Unremarkable. ABDOMEN & PELVIS STOMACH AND BOWEL: No evidence of bowel obstruction. PERITONEUM: No evidence of pneumoperitoneum or free fluid. VASCULATURE: No evidence of aortic aneurysm. MUSCULOSKELETAL: No acute osseous abnormalities, multilevel disc degeneration changes seen throughout the spine most pronounced in the lower lumbar spine with fixation hardware L4-L5. There is discectom y at L4-L5. Grade 2 anterolisthesis of L4 on L5. LYMPH NODES: No gross evidence for lymphadenopathy. SOFT TISSUE/ABDOMINAL WALL: Unremarkable IMPRESSION: No evidence for lymphadenopathy or suspicious mass.
--- NOTE | 2022-05-28 00:25 | P.PN ---
Subjective Progress Note Date: 05/27/22 Patient initially seen by Dr. Ruben Ames. Please refer to his note for details. Patient was seen for a follow-up. Patient's daughter was also present today. She states that patient was doing fine on 05/22/2022. On she became confused, not interactive appropriately. On Friday she was still the same. In the afternoon she was scheduled to have orthopedic surgery for her foot, when during preop evaluation, patient became unresponsive. Surgery was canceled. Her blood pressure was very high. She was confused. Per daughter, patient slept well on Friday. On Friday she was doing better, almost 90% back to baseline. She was alert and awake oriented, carrying on conversation. Friday, which is yesterday she started slipping down again. At around 2 PM she was "out of it". Stroke code was activated at 5:25 PM. Patient was picking at her blankets. She was talking nonsense and asking her to find out what time the pain is coming in. Last known well was 2 PM. NIH stroke scale was 4. No TPA recommended. EEG and MRI of the brain was ordered. Patient was co nsidered not a candidate for TPA. She finally settled down at midnight. Patient at present is laying comfortably in the bed. Still appears delirious, sometimes playing with her hands. She is bringing her hand to her nose purposelessly. Per daughter, patient is still sleepy, fidgety at times, nodes off. She is receiving [place] 5 mg once a day. Objective - Vital Signs Vital signs: Vital Signs Temp 98.2 F 05/27/22 20:00 Pulse 67 05/27/22 20:00 Resp 18 05/27/22 20:00 BP 147/41 05/27/22 20:00 Pulse Ox 96 05/27/22 20:00 FiO2 Intake & Output 05/27/22 05/27/22 05/28/22 06:59 18:59 06:59 Intake Total 120 240 Output Total 0 200 300 Balance 0 -80 -60 Intake: Oral 120 240 Output: Urine 0 200 300 Stool 0 Emesis 0 Other: Voiding Method External Catheter External Catheter External Catheter # Voids 0 # Bowel Movements 0 - Exam Patient is slightly encephalopathic. She is otherwise alert and awake. She states it is 06/27/2022. She believes that she is in [place] in [place]. She knows name of her daughter Amaris. She knows that she is in the hospital but could not tell the name. Speech and language functions are normal. Her pupils are round and reacting, visual dennison appears full. Extraocular muscles are intact. Facial sensation is normal. She has slight flattening of the right nasolabial fold. Which is baseline per her daughter. Hearing is mild to moderately decreased bilaterally to hand rub. Tongue protrudes the midline. Shoulder shrug normal. Muscle strength is normal in the arms. Lower limbs in the past. No ataxia. - Labs CBC & Chem 7: 05/26/22 17:50 05/26/22 17:50 Labs: Abnormal Lab Results - Last 24 Hours (Table) 05/27/22 Range/Units 10:29 Troponin I 0.116 H* (0.000-0.034) ng/mL Assessment and Plan Assessment: Fluctuating and altered mental status likely due delirium, possible underlying metabolic encephalopathy. Etiology multifactorial as mentioned below Possible hypertensive encephalopathy and component underlying UTI and medication effect ([place]) ---mentation improved Abnormal chest x-ray, with evidence of possible fluid overload versus pneumonitis. Fall and seem mechanical that resulted in left fibula and ankle/foot fracture Uncontrolled hypertension as during this hospital stay systolic in 200's. Probable underlying acute UTI History of coronary artery disease status post CABG History of lower back spinal fusion in 2018 Anemia, mild renal insufficiency, borderline hepatic functions. Mildly elevated cardiac enzymes. Plan: MRI of the brain revealed no evidence of a recent infarct. Mild to moderate diffuse cerebral atrophy and chronic small vessel ischemic change is redemon strated. Enhancing left frontal calvarial lesion corresponds to lytic lesion on the CT. Differential includes metastatic disease versus possible myeloma deposit. Correlate clinically. IM to address abnormal MRI report. May consider hematology oncology consultation. Continue aspirin 81 mg daily. 2-D echo revealed normal size and systolic function. Mild mitral aortic and tricuspid regurgitation. EF is normal 55-60%. CTA of brain is reported as "negative". There is approximate 50% stenosis at the origin of the left ICA. B12 is 429, folate > 20.0 Hemoglobin A1c 5.7 Cardiology on board for elevated cardiac enzymes. Patient on Zosyn for possible infection. EEG was performed, preliminary reading revealed background slowing of moderate degree, suggestive of encephalopathy. No epileptiform activity was seen. No indication for AED. Orthopedic team is on board We'll defer the rest of the medical management to the primary team Patient is also on multiple psychoactive medications including hydrocodone, Remeron 7.5 mg bedtime, pregabalin 100 mg twice a day. Consider decreasing the dose, if possible. DVT prophylaxis: Patient on heparin subcu every 12 hours per Discussed with patient's daughter in detail.
--- NOTE | 2022-05-28 03:27 | EEG ---
ELECTROENCEPHALOGRAM REPORT PREAMBLE: This is a 77-year-old female, who had a syncopal spell. She was in her kitchen, fell and fractured her left leg. The patient became more confused during the admission. This prompted EEG. EEG FINDINGS: This is a 21-channel digital EEG recorded with video component, utilizing 10/20 International System with referential and bipolar montages. Background consists of moderately well-developed, but somewhat disorganized, mixed frequencies of 8 to 9 Hz alpha, intermixed with moderate to high amplitude 2 to 3 Hz generalized delta slowing in bihemispheric region. Background does not seem to be reactive to eye opening or closing. Different stages of sleep were not seen. Occasional brief period of suppression for 1 second was also noticed. No focal or generalized epileptiform activity was seen. EKG channel showed arrhythmia. IMPRESSION: This is an abnormal EEG due to background slowing of at least moderate degree. This is suggestive of generalized cerebral dysfunction as it can be seen with toxic/metabolic encephalopathy or due to diffuse structural brain abnormality. Clinical correlation is recommended. No epileptiform activity was seen. EKG channel showed arrhythmia. Correlate clinically. MMODL / IJN: [id number] /
--- NOTE | 2022-05-28 04:56 | PN ---
PROGRESS NOTE SUBJECTIVE: This is a 77-year-old woman who had a past medical history of multiple medical problems admitted with ankle fracture. The patient was transferred to telemetry. The patient also had possible UTI. The patient is also unresponsive at this time. The patient will be closely monitored. The patient is on empiric Rocephin. PAST MEDICAL HISTORY: Could not be taken. REVIEW OF SYSTEMS: Could not be taken. CURRENT MEDICATIONS: Reviewed include Rocephin, dose and rest of medication noted. PHYSICAL EXAMINATION: VITAL SIGNS: Pulse 90, blood pressure 177/90, respirations 10, temperature 100 degrees. HEENT: Conjunctivae normal. NECK: No JVD. CARDIOVASCULAR: S1, S2 muffled. RESPIRATIONS: Breath sounds diminished at the bases. Bilateral scattered rhonchi. ABDOMEN: Soft. NERVOUS SYSTEM: Diffusely weak. LABS: WBC 5, hemoglobin 10.1. Troponin is noted. ASSESSMENT: 1. Status post left ankle fracture. 2. Change in mental status. 3. Possible acute urinary tract infection and pneumonia. 4. Hypertension. 5. Multiple medical issues. 6. Dementia. RECOMMENDATIONS AND DISCUSSION: This is a 77-year-old woman who presented with multiple complex medical issues, we will monitor the patient closely. We will change antibiotic to Zosyn empirically and repeat chest x-ray. Cultures, infectious disease evaluation. Prognosis guarded because of multiple complex medical issues. Neurology following the patient. Discussed with the family. See orders for further details. Further recommendations to follow. MMODL / IJN: [id number] /
--- NOTE | 2022-05-28 06:59 | P.CONS ---
History of Present Illness - Reason for Consult Consult date: 05/27/22 Fever Requesting physician: Abhijit Bell - Chief Complaint Fall and left ankle pain x few days - History of Present Illness Patient is a 77-year-old female presenting to the hospital 4 days ago after the patient fell in her kitchen sustaining injury to the left ankle area patient mention she lost her balance and fell down no loss of consciousness and was complaining of significant pain to the left ankle area patient did have x- rays revealed minimally displaced distal fibular fracture and nondisplaced medial malleolar fracture has been evaluated by orthopedic and a splint has been placed patient on admission to the hospital was afebrile however she did spike a fever of 100.5 F on 05/24/2022 and another fever of 100 F this morning that has prompted this infectious disease consultation patient denies having any headache or URI symptoms patient denies having any chest pain or shortness of breath she did have a congested cough moderate intensity but not able to bring up any sputum patient denies having nausea no vomiting no abdominal pain no diarrhea p er the patient is constipated with no bowel movement for the last 4 days per the daughter at the bedside on admission to the hospital the patient did have normal white count which remains to be normal afterwards BUN and creatinine slightly elevated yesterday and did have elevated troponin patient did have a positive UA with large leukocyte esterase and 21 WBC however urine culture has been negative patient did have a chest x-ray negative for acute cardiopulmonary disease patient was started on Zosyn Review of Systems Positive point has been mentioned in the HPI rest of the systems are negative Past Medical History Past Medical History: Coronary Artery Disease (CAD), Chest Pain / Angina, Hyperlipidemia, Hypertension, Osteoarthritis (OA) Additional Past Medical History / Comment(s): ARTHRITIS HEAD TO TOE- HANDS & LOWER BACK IS THE WORST-HANDS SWELL @ TIMES, urinary incontinence, "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 CATARACTS RONY. carpal tunnelWITH LENS IMPLANT 2007, lower back spinal fusion 2017, left knee surgery 2018., Past Anesthesia/Blood Transfusion Reactions: Postoperative Nausea & Vomiting (PONV) Additional Past Anesthesia/Blood Transfusion Reaction / Comm: PONV and hard to wake up Past Psychological History: Anxiety, Depression Additional Psychological History / Comment(s): . Smoking Status: Former smoker Past Alcohol Use History: None Reported Additional Past Alcohol Use History / Comment(s): QUIT 2007 WAS 1PPD smoker since age 17 or 19. She denies any medical marijuana, marijuana, street drug or alcohol use. She lives at home with her of 52 years. Past Drug Use History: None Reported - Past Family History Brother(s) Additional Family Medical History / Comment(s): Shunt has 1 brother and 1 sister but she does not have any contact with them. Patient has 3 children that are all healthy. Mother Family Medical History: Cancer Additional Family Medical History / Comment(s): . Father Family Medical History: Cancer Additional Family Medical History / Comment(s): . Medications and Allergies Home Medications Medication Instructions Recorded Confirmed Type Isosorbide Mononitrate ER [Imdur] 30 mg PO DAILY 04/06/15 05/23/22 History Multivitamins, Thera [Multivitamin 1 tab PO DAILY 06/14/16 05/23/22 History (formulary)] Potassium Chloride [Klor-Con 20] 20 meq PO DAILY 07/24/18 05/23/22 History Aspirin [Children's Aspirin] 81 mg PO HS 01/21/19 05/23/22 History Folic Acid 1 mg PO DAILY 01/21/19 05/23/22 History metHOTREXate sodium [Methotrexate] 20 mg PO SAMANIEGO@1400 01/21/19 05/23/22 History Docusate [Colace] 100 mg PO DAILY 05/24/21 05/23/22 History Ergocalciferol [Vitamin D2 (1250 1,250 mcg PO SAMANIEGO 05/24/21 05/23/22 History Mcg = [id number] Iu)] Pregabalin [Lyrica] 100 mg PO BID@1400,2100 05/24/21 05/23/22 History Famotidine [Pepcid] 20 mg PO DAILY #0 tab 04/19/22 05/23/22 Rx Ipratropium-Albuterol Nebulize 3 ml INHALATION RT-QID PRN each 04/19/22 05/23/22 Rx [Duoneb 0.5 mg-3 mg/3 ml Soln] carvediloL [Coreg] 3.125 mg PO BID-W/MEALS tab 04/19/22 05/23/22 Rx guaiFENesin [Mucinex] 1,200 mg PO Q12HR 4 Days tab 04/19/22 05/23/22 Rx Bumetanide [BUMEX] 0.5 mg PO DAILY 05/23/22 05/23/22 History Mirtazapine 7.5 mg PO HS 05/23/22 05/23/22 History Allergies Allergy/AdvReac Type Severity Reaction Status Date / Time alprazolam [From Xanax] Allergy Unknown Verified 05/23/22 09:38 amlodipine [From Norvasc] Allergy Unknown Verified 05/23/22 09:38 diazepam [From Valium] Allergy hard time Verified 05/23/22 09:38 coming out of anesthesia amoxicillin trihydrate AdvReac Severe Nausea & Verified 05/23/22 09:38 [From Augmentin] Vomiting & Diarrhea potassium clavulanate AdvReac Severe Nausea & Verified 05/23/22 09:38 [From Augmentin] Vomiting & Diarrhea sulfamethoxazole AdvReac Severe affected Verified 05/23/22 09:38 [From Bactrim] muscles - couldn't move trimethoprim [From Bactrim] AdvReac Severe affected Verified 05/23/22 09:38 muscles - couldn't move Wznakcq-GNC-PhT Reductase AdvReac leg cramps Verified 05/23/22 09:38 Inhibitor [Rtzscfq-Awx-Wlc Reductase Inhibitor] Sulfa (Sulfonamide AdvReac Unknown Verified 05/23/22 09:38 Antibiotics) Physical Exam Vitals: Vital Signs Temp Pulse Resp BP Pulse Ox 05/27/22 07:56 100 F H 90 16 177/90 97 05/27/22 02:00 99.3 F 63 205/67 88 L 05/26/22 20:28 99 F 75 16 178/51 91 L 05/26/22 17:35 66 20 173/61 95 05/26/22 17:28 132/80 05/26/22 17:23 71 20 182/81 96 05/26/22 14:00 98.9 F 52 L 16 118/52 94 L Intake and Output 05/26/22 05/27/22 05/27/22 22:59 06:59 14:59 Output Total 1100 0 Balance -1100 0 Output: Urine 1100 0 Stool 0 Emesis 0 Other: Voiding Method External Catheter External Catheter # Voids 0 # Bowel Movements 0 GENERAL DESCRIPTION: Elderly female lying in bed, no distress. No tachypnea or accessory muscle of respiration use. HEENT: Shows Pallor , no scleral icterus. Oral mucous membrane is dry. No pharyngeal erythema or thrush NECK: Trachea central, no thyromegaly. LUNGS: Unlabored breathing. Decreased breath sounds at the base. No wheeze or crackle. HEART: S1, S2, regular rate and rhythm. No loud murmur ABDOMEN: Soft, no tenderness , guarding or rigidity, no organomegaly EXTREMITIES: Left ankle is currently in splint. SKIN: No rash, no masses palpable. NEUROLOGICAL: The patient is awake, alert, oriented x3, mood and affect normal. Results CBC & Chem 7: 05/28/22 08:17 05/28/22 08:17 Labs: Abnormal Lab Results - Last 24 Hours (Table) 05/26/22 05/26/22 05/26/22 Range/Units 17:23 17:50 17:50 RBC 3.40 L (3.80-5.40) m/uL Hgb 10.1 L (11.4-16.0) gm/dL Hct 31.4 L (34.0-46.0) % RDW 17.6 H (11.5-15.5) % Plt Count 125 L (150-450) k/uL Sodium 136 L (137-145) mmol/L BUN 24 H (7-17) mg/dL Creatinine 1.40 H (0.52-1.04) mg/dL Glucose 117 H (74-99) mg/dL POC Glucose (mg/dL) 125 H (70-110) mg/dL AST 50 H (14-36) U/L ALT 35 H (4-34) U/L Troponin I (0.000-0.034) ng/mL Total Protein 5.8 L (6.3-8.2) g/dL Albumin 3.3 L (3.5-5.0) g/dL 05/26/22 05/27/22 Range/Units 17:50 10:29 RBC (3.80-5.40) m/uL Hgb (11.4-16.0) gm/dL Hct (34.0-46.0) % RDW (11.5-15.5) % Plt Count (150-450) k/uL Sodium (137-145) mmol/L BUN (7-17) mg/dL Creatinine (0.52-1.04) mg/dL Glucose (74-99) mg/dL POC Glucose (mg/dL) (70-110) mg/dL AST (14-36) U/L ALT (4-34) U/L Troponin I 0.116 H* 0.116 H* (0.000-0.034) ng/mL Total Protein (6.3-8.2) g/dL Albumin (3.5-5.0) g/dL Assessment and Plan (1) Fever Current Visit: No Status: Acute Code(s): R50.9 - FEVER, UNSPECIFIED SNOMED Code(s): 705287632 Plan: 1patient with low-grade fever during this hospital stay and this patient presented to hospital with left ankle fracture traumatic and has been treated conservatively patient did have a congested cough however chest x-ray completed yesterday did not show any acute cardiopulmonary disease urine was slightly positive however culture has been negative patient complaining of constipation with no bowel movement for the last 4 days question of abdominal source or fever related to her trauma. 2we will obtain a CT abdominal pelvis to rule out intra-abdominal pathology and will better define underlying lower lung duration evidence of any consolidation. 3obtain sputum for gram stain culture. 4check inflammatory markers. 5continue with Zosyn while waiting for the work-up to be completed. We will follow on clinical condition and cultures to further adjust medication if needed Thank you for this consultation will follow this patient along with you Time with Patient: Greater than 30
[2022-05-28] MEDS: IPRATROPIUM-ALBUTEROL 3 ML NEB INHALATION SCH ×3 (07:59→20:03)
[2022-05-28] MEDS: PIPERACILLIN-TAZOBACTAM 3.375 GM in SODIUM CHLORIDE 0.9% 100 ML IVPB SCH ×2 (08:34→16:27)
[2022-05-28] MEDS: HEPARIN SODIUM,PORCINE/PF 5,000 UNIT/0.5 ML SYRINGE SQ SCH ×2 (08:34→20:48)
[2022-05-28] MEDS: POTASSIUM CHLORIDE ER 20 MEQ TAB.ER PO SCH (08:35)
[2022-05-28] MEDS: guaiFENesin 600 MG TABLET.ER PO SCH ×2 (08:35→20:48)
[2022-05-28] MEDS: FOLIC ACID 1 MG TAB PO SCH (08:35)
[2022-05-28] MEDS: ISOSORBIDE MONONITRATE ER 30 MG TAB.ER.24H PO SCH (08:35)
[2022-05-28] MEDS: FUROSEMIDE 10 MG/ML 4 ML VIAL IV SCH (08:35)
[2022-05-28 08:36] LABS: Anisocytosis Slight; Basophils % (A) 0 %; Eosinophils # (A) 0.1 k/uL (0-0.7); Eosinophils % (A) 2 %; HCT 31.4 % (34.0-46.0); HGB 10.2 gm/dL (11.4-16.0); Hypochromasia Slight; Lymphocytes # (A) 1.2 k/uL (1.0-4.8); Lymphocytes % (A) 15 %; MCH 30.3 pg (25.0-35.0); MCHC 32.5 g/dL (31.0-37.0); MCV 93.2 fL (80.0-100.0); Monocytes # (A) 0.6 k/uL (0-1.0); Monocytes % (A) 7 %; Neutrophils # (A) 5.9 k/uL (1.3-7.7); Neutrophils % (A) 74 %; Platelet Count 142 k/uL (150-450); Poikilocytosis Slight; RBC 3.36 m/uL (3.80-5.40); RDW 16.8 % (11.5-15.5); WBC 8.1 k/uL (3.8-10.6)
[2022-05-28] MEDS: amLODIPine 5 MG TAB PO SCH (08:36)
[2022-05-28] MEDS: FAMOTIDINE 20 MG TAB PO SCH (08:36)
[2022-05-28] MEDS: MULTIVITAMINS, THERA 1 EACH TAB PO SCH (08:36)
[2022-05-28] MEDS: BUMETANIDE 0.5 MG TABLET PO SCH (08:36)
[2022-05-28 08:51] LABS: Albumin 3.2 g/dL (3.5-5.0); Calcium 9.3 mg/dL (8.4-10.2); Magnesium 2.1 mg/dL (1.6-2.3); Potassium 4.3 mmol/L (3.5-5.1); Total Bilirubin 0.7 mg/dL (0.2-1.3); Total Protein 5.7 g/dL (6.3-8.2)
[2022-05-28] MEDS ORDERED: amLODIPine 5 MG TAB PO STA (09:58)
[2022-05-28] MEDS: HYDROcodone/APAP 5-325MG 1 EACH TAB PO PRN ×2 (10:55→21:14)
[2022-05-28] MEDS: hydrALAZINE HCL 50 MG TAB PO SCH ×2 (10:57→20:48)
--- NOTE | 2022-05-28 12:09 | P.PN ---
Subjective Progress Note Date: 05/28/22 HISTORY OF PRESENT ILLNESS: Patient examined this morning at the bedside. Family member present. Patient denies chest pain or pressure. She denies shortness of breath. Patient's blood pressure remains elevated with a systolic in the 190s. Telemetry continues to reveal second-degree heart block with a heart rate in the 60s. Echocardiogram reveals ejection fraction 55-60% with mild MR and mild TR. PHYSICAL EXAM: VITAL SIGNS: Reviewed. GENERAL: Well-developed in no acute distress. NECK: Supple. No JVD or thyromegaly LUNGS: Respirations even and unlabored. Lungs essentially clear to auscultation bilaterally. HEART: Regular rate and rhythm. S1 and S2 heard. EXTREMITIES: Normal range of motion. No clubbing or cyanosis. Peripheral pulses intact. 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 Klein, increase amlodipine to 10 mg twice a day Add hydralazine 50 mg twice a day Continue to monitor blood pressure Further recommendations pending patient's course Nurse practitioner note has been reviewed by physician. Signing provider agrees with the documented findings, assessment, and plan of care. Objective - Vital Signs Vital signs: Vital Signs Temp 97.9 F 05/28/22 11:41 Pulse 84 05/28/22 11:58 Resp 18 05/28/22 11:41 BP 164/57 05/28/22 11:41 Pulse Ox 95 05/28/22 11:41 FiO2 Intake & Output 05/27/22 05/28/22 05/28/22 18:59 06:59 18:59 Intake Total 120 240 118 Output Total 200 500 600 Balance -80 260 482 Weight 71.5 kg Intake: Oral 120 240 118 Output: Urine 200 500 600 Other: Voiding Method External Catheter External Catheter External Catheter - Labs CBC & Chem 7: 05/28/22 08:17 05/28/22 08:17 Labs: Abnormal Lab Results - Last 24 Hours (Table) 05/28/22 05/28/22 Range/Units 08:17 08:17 RBC 3.36 L (3.80-5.40) m/uL Hgb 10.2 L (11.4-16.0) gm/dL Hct 31.4 L (34.0-46.0) % RDW 16.8 H (11.5-15.5) % Plt Count 142 L (150-450) k/uL Carbon Dioxide 21 L (22-30) mmol/L BUN 23 H (7-17) mg/dL Creatinine 1.23 H (0.52-1.04) mg/dL Glucose 104 H (74-99) mg/dL C-Reactive Protein 9.0 H (<1.0) mg/dL Total Protein 5.7 L (6.3-8.2) g/dL Albumin 3.2 L (3.5-5.0) g/dL
--- NOTE | 2022-05-28 13:00 | P.NPCON ---
History of Present Illness - Reason for Consult acute renal failure - History of Present Illness Patient is a 77-year-old female with history of coronary artery disease, hypertension who was admitted to the hospital with history of fall on 05/24/2022. Patient was found to have left ankle fracture. Surgery has not been performed as patient develop significant mental status changes. Neurology was consulted. Mentation has now improved. Patient had CT angiography on 05/26/2022 which was negative. Serum creatinine was 0.9 on initial admission and increased to 1.4 on 05/26/2022. It is now decreased to 1.2 mg/dL. Blood pressure has not been low. Patient has an external catheter with 24-hour urine output documented at 1100 mL. 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 CATARACTS RONY. carpal tunnelWITH LENS IMPLANT 2007, lower back spinal fusion 2018, left knee surgery 2018., Past Anesthesia/Blood Transfusion Reactions: Postoperative Nausea & Vomiting (PONV) Additional Past Anesthesia/Blood Transfusion Reaction / Comment(s): PONV and hard to wake up Past Psychological History: Anxiety, Depression Additional Psychological History / Comment(s): . Smoking Status: Former smoker Past Alcohol Use History: None Reported Additional Past Alcohol Use History / Comment(s): QUIT 2008 WAS 1PPD smoker since age 17 or 19. She denies any medical marijuana, marijuana, street drug or alcohol use. She lives at home with her of 52 years. Past Drug Use History: None Reported - Past Family History Brother(s) Additional Family Medical History / Comment(s): Shunt has 1 brother and 1 sister but she does not have any contact with them. Patient has 3 children that are all healthy. Mother Family Medical History: Cancer Additional Family Medical History / Comment(s): . Father Family Medical History: Cancer Additional Family Medical History / Comment(s): . Medications and Allergies Home Medications Medication Instructions Recorded Confirmed Type Isosorbide Mononitrate ER [Imdur] 30 mg PO DAILY 04/06/15 05/23/22 History Multivitamins, Thera [Multivitamin 1 tab PO DAILY 06/14/16 05/23/22 History (formulary)] Potassium Chloride [Klor-Con 20] 20 meq PO DAILY 07/24/18 05/23/22 History Aspirin [Children's Aspirin] 81 mg PO HS 01/21/19 05/23/22 History Folic Acid 1 mg PO DAILY 01/21/19 05/23/22 History metHOTREXate sodium [Methotrexate] 20 mg PO SAMANIEGO@1400 01/21/19 05/23/22 History Docusate [Colace] 100 mg PO DAILY 05/24/21 05/23/22 History Ergocalciferol [Vitamin D2 (1250 1,250 mcg PO SAMANIEGO 05/24/21 05/23/22 History Mcg = [id number] Iu)] Pregabalin [Lyrica] 100 mg PO BID@1400,2100 05/24/21 05/23/22 History Famotidine [Pepcid] 20 mg PO DAILY #0 tab 04/19/22 05/23/22 Rx Ipratropium-Albuterol Nebulize 3 ml INHALATION RT-QID PRN each 04/19/22 05/23/22 Rx [Duoneb 0.5 mg-3 mg/3 ml Soln] carvediloL [Coreg] 3.125 mg PO BID-W/MEALS tab 04/19/22 05/23/22 Rx guaiFENesin [Mucinex] 1,200 mg PO Q12HR 4 Days tab 04/19/22 05/23/22 Rx Bumetanide [BUMEX] 0.5 mg PO DAILY 05/23/22 05/23/22 History Mirtazapine 7.5 mg PO HS 05/23/22 05/23/22 History Allergies Allergy/AdvReac Type Severity Reaction Status Date / Time alprazolam [From Xanax] Allergy Unknown Verified 05/23/22 09:38 amlodipine [From Norvasc] Allergy Unknown Verified 05/23/22 09:38 diazepam [From Valium] Allergy hard time Verified 05/23/22 09:38 coming out of anesthesia amoxicillin trihydrate AdvReac Severe Nausea & Verified 05/23/22 09:38 [From Augmentin] Vomiting & Diarrhea potassium clavulanate AdvReac Severe Nausea & Verified 05/23/22 09:38 [From Augmentin] Vomiting & Diarrhea sulfamethoxazole AdvReac Severe affected Verified 05/23/22 09:38 [From Bactrim] muscles - couldn't move trimethoprim [From Bactrim] AdvReac Severe affected Verified 05/23/22 09:38 muscles - couldn't move Cgxofbt-VLB-BcS Reductase AdvReac leg cramps Verified 05/23/22 09:38 Inhibitor [Blvyvtv-Qwm-Arm Reductase Inhibitor] Sulfa (Sulfonamide AdvReac Unknown Verified 05/23/22 09:38 Antibiotics) Physical Exam Vitals: Vital Signs Temp Pulse Pulse Resp BP Pulse Ox 05/28/22 11:58 84 05/28/22 11:52 76 05/28/22 11:41 97.9 F 77 18 164/57 95 05/28/22 08:10 88 05/28/22 08:00 99.2 F 64 20 206/78 96 05/28/22 07:59 81 95 05/28/22 03:45 99.4 F 43 L 20 142/54 91 L 05/28/22 00:00 98.3 F 59 L 20 131/51 96 05/27/22 20:00 98.2 F 67 18 147/41 96 05/27/22 15:42 92 05/27/22 15:40 16 92 L 05/27/22 15:35 90 05/27/22 15:31 16 140/96 88 L 05/27/22 14:04 99.1 F 64 16 195/60 91 L Intake and Output 05/27/22 05/28/22 05/28/22 22:59 06:59 14:59 Intake Total 360 118 Output Total 500 200 600 Balance -140 -200 -482 Intake: Oral 360 118 Output: Urine 500 200 600 Other: Voiding Method External Catheter External Catheter External Catheter Weight 71.5 kg Awake, comfortable, not in any acute distress Examination of the heart S1 and S2 Examination of the lungs bilateral breath sounds are heard Abdomen is soft nontender Examination lower extremities shows left lower extremity in a cast No edema noted in the right lower extremity. CONDUCTOR FREIGHT exam grossly intact Results - Lab Results Most recent lab results Calcium 9.3 mg/dL (8.4-10.2) 05/28/22 08:17 Magnesium 2.1 mg/dL (1.6-2.3) 05/28/22 08:17 10 08:17 05/28/22 08:17 Assessment and Plan Assessment: 1. Acute kidney injury, nonoliguric likely secondary to fluctuations in blood pressure with blood pressure ranging from 190 6 mmHg systolic to 1 18 mmHg. Patient also received IV contrast however this was on the same day as the elevated creatinine and therefore it is most likely not related to that however we need to continue to monitor over the next few days for contrast nephropathy. 2. Status post fall and left ankle fracture 3. Mental status changes most likely metabolic encephalopathy currently improved. No acute findings on brain MRI 4. Pyuria with no evidence of underlying UTI 5. Hypertension with fluctuating blood pressures maintained on Norvasc clonidine and hydralazine Plan: Continue with IV Lasix and DC oral Bumex Consider weaning clonidine once blood pressure is stable and we can add beta blockers. Continue to avoid nephrotoxic agents Repeat labs in a.m. Thank you for the consultation. We'll continue to follow the patient with you during her hospitalization
[2022-05-28] MEDS: IOPAMIDOL CONTRAST (ORAL USE) VIAL PO PRN ×2 (13:01→13:58)
[2022-05-28] MEDS: PREGABALIN 100 MG CAP PO SCH ×2 (14:00→20:47)
--- NOTE | 2022-05-28 15:03 | CT ---
EXAMINATION TYPE: CT abdomen pelvis wo con CT DLP: 1131.4 mGycm, Automated exposure control for dose reduction was used. DATE OF EXAM: 05/28/2022 2:46 PM COMPARISON: CT chest abdomen 05/27/2022. CLINICAL INDICATION:Female, 77 years old with history of Fever and constipation. TECHNIQUE: Standard CT of the abdomen and pelvis following the administration of oral contrast. Cor onal and sagittal reformats were performed. FINDINGS: Determination is limited due to motion and lack of intravenous contrast. LOWER CHEST: Posterior dependent subsegmental atelectasis is noted. ABDOMEN LIVER: Unremarkable noncontrast appearance. GALLBLADDER AND BILE DUCTS: The gallbladder is surgically absent. No biliary duct dilatation. PANCREAS: Unremarkable. SPLEEN: Unremarkable. ADRENAL GLANDS: Unremarkable noncontrast appearance of the right adrenal gland. Left adrenal gland 1. 8 cm nodule with a Hounsfield unit of 7 consistent with a lipid rich benign adrenal adenoma.. KIDNEYS AND URETERS: No hydronephrosis or renal calculi. Calcifications in the left renal sinus are f elt to be vascular in etiology. No perinephric fluid collections. PELVIS BLADDER: Moderately distended urinary bladder. No surrounding inflammatory changes. REPRODUCTIVE: The uterus is surgically absent. No suspicious adnexal mass. ABDOMEN & PELVIS STOMACH AND BOWEL: Stomach and duodenum are unremarkable. No focal wall thickening. The appendix is w ithin normal limits. No evidence of bowel obstruction. Enteric contrast reaches the distal small eros l. Moderate colonic stool. PERITONEUM: No evidence of pneumoperitoneum or free fluid. No organized fluid collections. VASCULATURE: Moderate atherosclerotic calcifications are present throughout the abdominal aorta and i ts branches. No evidence of aortic aneurysm. MUSCULOSKELETAL: No acute osseous abnormalities. Postsurgical changes with particular screw and maría i nvolving the right aspect of the L4 and L5 vertebral bodies with disc spacer. Grade 2 anterior listhe sis of L4 on L5. LYMPH NODES: No gross evidence for lymphadenopathy. SOFT TISSUE/ABDOMINAL WALL: Few foci of gas within the subcutaneous tissues of the ventral abdominal wall likely related to medication injections. IMPRESSION: 1. No acute abdominal/pelvic process. 2. Moderate colonic stool burden.
--- NOTE | 2022-05-28 19:29 | P.CONS ---
History of Present Illness - Reason for Consult Consult date: 05/28/22 lytic lesion calvarium Requesting physician: Abhijit Bell - Chief Complaint AMS - History of Present Illness Ms. Roca is a [id number] yo lady with a complex medical Hx, currently admitted after a fall at home and AMS. She had head imaging and incidentally a lytic lesion was found on the skull, we have been asked to further evaluate. Pt has no Hx of cancer, denied any B symptoms. No acute c/o at the time of exam. 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 CATARACTS RONY. carpal tunnelWITH LENS IMPLANT 2007, lower back spinal fusion 2017, left knee surgery 2018., Past Anesthesia/Blood Transfusion Reactions: Postoperative Nausea & Vomiting (PONV) Additional Past Anesthesia/Blood Transfusion Reaction / Comm: PONV and hard to wake up Past Psychological History: Anxiety, Depression Additional Psychological History / Comment(s): . Smoking Status: Former smoker Past Alcohol Use History: None Reported Additional Past Alcohol Use History / Comment(s): QUIT 2007 WAS 1PPD smoker since age 17 or 19. She denies any medical marijuana, marijuana, street drug or alcohol use. She lives at home with her of 52 years. Past Drug Use History: None Reported - Past Family History Brother(s) Additional Family Medical History / Comment(s): Shunt has 1 brother and 1 sister but she does not have any contact with them. Patient has 3 children that are all healthy. Mother Family Medical History: Cancer Additional Family Medical History / Comment(s): . Father Family Medical History: Cancer Additional Family Medical History / Comment(s): . Medications and Allergies Home Medications Medication Instructions Recorded Confirmed Type Isosorbide Mononitrate ER [Imdur] 30 mg PO DAILY 04/06/15 05/23/22 History Multivitamins, Thera [Multivitamin 1 tab PO DAILY 06/14/16 05/23/22 History (formulary)] Potassium Chloride [Klor-Con 20] 20 meq PO DAILY 07/24/18 05/23/22 History Aspirin [Children's Aspirin] 81 mg PO HS 01/21/19 05/23/22 History Folic Acid 1 mg PO DAILY 01/21/19 05/23/22 History metHOTREXate sodium [Methotrexate] 20 mg PO SAMANIEGO@1400 01/21/19 05/23/22 History Docusate [Colace] 100 mg PO DAILY 05/24/21 05/23/22 History Ergocalciferol [Vitamin D2 (1250 1,250 mcg PO SAMANIEGO 05/24/21 05/23/22 History Mcg = [id number] Iu)] Pregabalin [Lyrica] 100 mg PO BID@1400,2100 05/24/21 05/23/22 History Famotidine [Pepcid] 20 mg PO DAILY #0 tab 04/19/22 05/23/22 Rx Ipratropium-Albuterol Nebulize 3 ml INHALATION RT-QID PRN each 04/19/22 05/23/22 Rx [Duoneb 0.5 mg-3 mg/3 ml Soln] carvediloL [Coreg] 3.125 mg PO BID-W/MEALS tab 04/19/22 05/23/22 Rx guaiFENesin [Mucinex] 1,200 mg PO Q12HR 4 Days tab 04/19/22 05/23/22 Rx Bumetanide [BUMEX] 0.5 mg PO DAILY 05/23/22 05/23/22 History Mirtazapine 7.5 mg PO HS 05/23/22 05/23/22 History Allergies Allergy/AdvReac Type Severity Reaction Status Date / Time alprazolam [From Xanax] Allergy Unknown Verified 05/23/22 09:38 amlodipine [From Norvasc] Allergy Unknown Verified 05/23/22 09:38 diazepam [From Valium] Allergy hard time Verified 05/23/22 09:38 coming out of anesthesia amoxicillin trihydrate AdvReac Severe Nausea & Verified 05/23/22 09:38 [From Augmentin] Vomiting & Diarrhea potassium clavulanate AdvReac Severe Nausea & Verified 05/23/22 09:38 [From Augmentin] Vomiting & Diarrhea sulfamethoxazole AdvReac Severe affected Verified 05/23/22 09:38 [From Bactrim] muscles - couldn't move trimethoprim [From Bactrim] AdvReac Severe affected Verified 05/23/22 09:38 muscles - couldn't move Iuenyck-DTM-RjR Reductase AdvReac leg cramps Verified 05/23/22 09:38 Inhibitor [Memiebd-Sea-Hzx Reductase Inhibitor] Sulfa (Sulfonamide AdvReac Unknown Verified 05/23/22 09:38 Antibiotics) Physical Exam Vitals: Vital Signs Temp Pulse Pulse Resp BP Pulse Ox 05/28/22 08:10 88 05/28/22 08:00 99.2 F 64 20 206/78 96 05/28/22 07:59 81 95 05/28/22 03:45 99.4 F 43 L 20 142/54 91 L 05/28/22 00:00 98.3 F 59 L 20 131/51 96 05/27/22 20:00 98.2 F 67 18 147/41 96 05/27/22 15:42 92 05/27/22 15:40 16 92 L 05/27/22 15:35 90 05/27/22 15:31 16 140/96 88 L 05/27/22 14:04 99.1 F 64 16 195/60 91 L Intake and Output 05/27/22 05/28/22 05/28/22 22:59 06:59 14:59 Intake Total 360 118 Output Total 500 200 Balance -140 -200 118 Intake: Oral 360 118 Output: Urine 500 200 Other: Voiding Method External Catheter External Catheter External Catheter Weight 71.5 kg - Constitutional General appearance: average body habitus, no acute distress - EENT Eyes: anicteric sclerae, EOMI ENT: hearing grossly normal, normal oropharynx - Neck Neck: no lymphadenopathy - Respiratory Respiratory: bilateral: CTA - Cardiovascular Rhythm: regular Heart sounds: normal: S1, S2 Abnormal Heart Sounds: no systolic murmur, no diastolic murmur, no rub, no S3 Gallop, no S4 Gallop, no click, no other leg Peripheral Edema: bilateral: None - Gastrointestinal General gastrointestinal: no absent bowel sounds, no decreased bowel sounds, no distended, no hepatomegaly, no hyperactive bowel sounds, normal bowel sounds, no organomegaly, no rigid, no scaphoid, soft, no splenomegaly, no tenderness, no umbilical hernia, no ventral hernia - Integumentary Integumentary: normal - Neurologic Neurologic: CNII-XII intact - Musculoskeletal Musculoskeletal: generalized weakness - Psychiatric Drowsy, slow to respond, oriented x 3 Results CBC & Chem 7: 05/28/22 08:17 05/28/22 08:17 Labs: Abnormal Lab Results - Last 24 Hours (Table) 05/27/22 05/28/22 05/28/22 Range/Units 10:29 08:17 08:17 RBC 3.36 L (3.80-5.40) m/uL Hgb 10.2 L (11.4-16.0) gm/dL Hct 31.4 L (34.0-46.0) % RDW 16.8 H (11.5-15.5) % Plt Count 142 L (150-450) k/uL Carbon Dioxide 21 L (22-30) mmol/L BUN 23 H (7-17) mg/dL Creatinine 1.23 H (0.52-1.04) mg/dL Glucose 104 H (74-99) mg/dL Troponin I 0.116 H* (0.000-0.034) ng/mL C-Reactive Protein 9.0 H (<1.0) mg/dL Total Protein 5.7 L (6.3-8.2) g/dL Albumin 3.2 L (3.5-5.0) g/dL CT scan - abdomen: report reviewed CT Scan - head: report reviewed CT scan - pelvis: report reviewed MRI - head: report reviewed Assessment and Plan (1) Bone anomaly Current Visit: Yes Status: Acute Priority: High Code(s): 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 CT AP neg for any mass or LAD. NM bone scan ordered to complete assessment of skeletal system. MM labs ordered-pt does have renal dysfunction, anemia, calcium is normal. Dr. Diggs discussed potential causes for the findings. Pending further work up before discussing diagnosis and options for treatment. Attests:I have seen and examined pt, performed H&P, developed impression and plan of care. Discussed with dictator. Agree with documentation, dictated as a scribe.
[2022-05-28] MEDS: ASPIRIN 81 MG PO SCH (20:47)
[2022-05-28] MEDS: MIRTAZAPINE 15 MG TAB PO SCH (20:48)
[2022-05-28] MEDS: amLODIPine 10 MG TAB PO SCH (20:48)
[2022-05-29] MEDS: PIPERACILLIN-TAZOBACTAM 3.375 GM in SODIUM CHLORIDE 0.9% 100 ML IVPB SCH ×4 (00:03→23:36)
[2022-05-29] MEDS: amLODIPine 10 MG TAB PO SCH ×3 (00:09→20:41)
[2022-05-29] MEDS: IPRATROPIUM-ALBUTEROL 3 ML NEB INHALATION SCH ×3 (08:00→19:50)
[2022-05-29] MEDS: POTASSIUM CHLORIDE ER 20 MEQ TAB.ER PO SCH (08:25)
[2022-05-29] MEDS: FOLIC ACID 1 MG TAB PO SCH (08:25)
[2022-05-29] MEDS: ISOSORBIDE MONONITRATE ER 30 MG TAB.ER.24H PO SCH (08:25)
[2022-05-29] MEDS: guaiFENesin 600 MG TABLET.ER PO SCH ×2 (08:25→20:40)
[2022-05-29] MEDS: HYDROcodone/APAP 5-325MG 1 EACH TAB PO PRN ×3 (08:25→16:30)
[2022-05-29 08:26] LABS: Protein, Total 5.7 g/dL (6.2-8.2)
[2022-05-29] MEDS: DOCUSATE 100 MG CAP PO PRN (08:26)
[2022-05-29] MEDS: HEPARIN SODIUM,PORCINE/PF 5,000 UNIT/0.5 ML SYRINGE SQ SCH ×2 (08:26→20:40)
[2022-05-29] MEDS: MULTIVITAMINS, THERA 1 EACH TAB PO SCH (08:26)
[2022-05-29] MEDS: FUROSEMIDE 10 MG/ML 4 ML VIAL IV SCH (08:26)
[2022-05-29] MEDS: FAMOTIDINE 20 MG TAB PO SCH (08:26)
[2022-05-29 10:25] LABS: Free Kappa Lt Chain Qnt, Serum 4.06 mg/dL (0.33-1.94); Free Lambda Lt Chain Qnt, Seru <5.49 mg/dL (0.57-2.63)
--- NOTE | 2022-05-29 10:28 | P.PN ---
Subjective Progress Note Date: 05/28/22 05/28/2022: Patient was seen for a follow-up. Patient is sitting in the recliner, appears encephalopathic. Patient's daughter was present. She states that she was doing very well yesterday and also this morning, but now she is sleepy, probably tired, worn out, as she had a lot of activity earlier today. No new worsening. Telemetry monitoring showing second-degree heart block, type II, heart rate in the 40s. 05/27/2022: Patient initially seen by Dr. Ruben Ames. Please refer to his note for details. Patient was seen for a follow-up. Patient's daughter was also present today. She states that patient was doing fine on 05/22/2022. On she became confused, not interactive appropriately. On Friday she was still the same. In the afternoon she was scheduled to have orthopedic surgery for her foot, when during preop evaluation, patient became unresponsive. Surgery was canceled. Her blood pressure was very high. She was confused. Per daughter, patient slept well on Friday. On Friday she was doing better, almost 90% back to baseline. She was alert and awake oriented, carrying on conversation. Friday, which is yesterday she started slipping down again. At around 2 PM she was "out of it". Stroke code was activated at 5:25 PM. Patient was picking at her blankets. She was talking nonsense and asking her to find out what time the pain is coming in. Last known well was 2 PM. NIH stroke scale was 4. No TPA recommended. EEG and MRI of the brain was ordered. Patient was considered not a candidate for TPA. She finally settled down at midnight. Patient at present is laying comfortably in the bed. Still appears delirious, sometimes playing with her hands. She is bringing her hand to her nose purposelessly. Per daughter, patient is still sleepy, fidgety at times, nodes off. She is receiving [place] 5 mg once a day. Objective - Vital Signs Vital signs: Vital Signs Temp 97.3 F L 05/29/22 08:19 Pulse 75 05/29/22 08:19 Resp 18 05/29/22 08:22 BP 125/63 05/29/22 08:19 Pulse Ox 96 05/29/22 08:19 FiO2 Intake & Output 05/28/22 05/29/22 05/29/22 18:59 06:59 18:59 Intake Total 118 240 Output Total 600 300 Balance -482 -60 Weight 65 kg Intake: Oral 118 240 Output: Urine 600 300 Other: Voiding Method External Catheter External Catheter External Catheter # Voids 2 - Exam Patient is slightly encephalopathic. She is otherwise alert and awake. She knows name of her daughter Amaris. She knows that she is in the hospital but c ould not tell the name. Speech and language functions are normal. Her pupils are round and reacting, visual dennison appears full. Extraocular muscles are intact. Facial sensation is normal. She has slight flattening of the right nasolabial fold, which is baseline per her daughter. Hearing is mild to moderately decreased bilaterally to hand rub. Tongue protrudes the midline. Shoulder shrug normal. Muscle strength is normal in the arms. Lower limbs in the past. No ataxia. - Labs CBC & Chem 7: 05/28/22 08:17 05/28/22 08:17 Labs: Abnormal Lab Results - Last 24 Hours (Table) 05/26/22 05/28/22 Range/Units 17:50 08:17 Total Protein (PEP) 5.7 L (6.2-8.2) g/dL Procalcitonin 0.37 H (0.02-0.09) ng/mL Microbiology - Last 24 Hours (Table) 05/27/22 14:39 Blood Culture - Preliminary Blood No Growth after 24 hours Assessment and Plan Assessment: Fluctuating and altered mental status likely due delirium, possible underlying metabolic encephalopathy. Etiology multifactorial as mentioned below Possible hypertensive encephalopathy and component underlying UTI and medication effect ([place]) ---mentation improved Abnormal chest x-ray, with evidence of possible fluid overload versus pneumonitis. Fall and seem mechanical that resulted in left fibula and ankle/foot fracture Uncontrolled hypertension as during this hospital stay systolic in 200's. Probable underlying acute UTI History of coronary artery disease status post CABG History of lower back spinal fusion in 2018 Anemia, mild renal insufficiency, borderline hepatic functions. Mildly elevated cardiac enzymes. Plan: Patient has delirium, symptoms are still fluctuating, but slightly better. Continue present management. MRI of the brain revealed no evidence of a recent infarct. Mild to moderate diffuse cerebral atrophy and chronic small vessel ischemic change is redemonstrated. Enhancing left frontal calvarial lesion corresponds to lytic lesion on the CT. Differential includes metastatic disease versus possible myeloma deposit. Correlate clinically. IM to address abnormal MRI report. May consider hematology oncology consultation. Continue aspirin 81 mg daily. 2-D echo revealed normal size and systolic function. Mild mitral aortic and tricuspid regurgitation. EF is normal 55-60%. CTA of brain is reported as "negative". There is approximate 50% stenosis at the origin of the left ICA. B12 is 429, folate > 20.0 Hemoglobin A1c 5.7 Cardiology on board for elevated cardiac enzymes. Patient on Zosyn for possible infection. EEG 05/27/2022 was abnormal due to background slowing of at least moderate degree. This is suggestive of generalized cerebral dysfunction as can be seen with toxic metabolic encephalopathy or due to diffuse structural brain abnormality. Clinical correlation is recommended. No epileptiform activity was seen. Orthopedic team is on board We'll defer the rest of the medical management to the primary team Patient is also on multiple psychoactive medications including hydrocodone, Remeron 7.5 mg bedtime, pregabalin 100 mg twice a day. Consider decreasing the dose, if possible. DVT prophylaxis: Patient on heparin subcu every 12 hours per Discussed with patient's daughter in detail.
[2022-05-29 13:51] LABS: Albumin 2.98 g/dL (3.80-4.90); Gamma Globulin 0.77 g/dL (0.70-1.50)
--- NOTE | 2022-05-29 14:08 | PN ---
PROGRESS NOTE HISTORY OF PRESENT ILLNESS: This is a 77-year-old woman who was admitted after left ankle fracture, is being closely monitored. The patient's multiple medical issues including fluid overload, change in mental status, possible pneumonia. The patient also had abnormal spot on the MRI scan. CT scan of the chest, abdomen, and pelvis did not show any gross abnormality. Hematology Oncology is also following the patient closely. PAST MEDICAL HISTORY: Could not be taken. REVIEW OF SYSTEMS: Could not be taken. MEDICATIONS: Reviewed include DuoNeb, dose and rest of medications noted. PHYSICAL EXAMINATION: VITAL SIGNS: Pulse is 77, blood pressure 160/70, and respirations 18. HEENT: Conjunctivae normal. NECK: No jugular venous distention. CARDIOVASCULAR: S1, S2 muffled. RESPIRATIONS: Breath sounds diminished at the bases, scattered rhonchi and crackles. ABDOMEN: Soft, nontender. LEGS: No edema. NERVOUS SYSTEM: No focal deficits. LABS: WBC 8.1, hemoglobin 10.2. ASSESSMENT: 1. Status post left ankle fracture. 2. Change in mental status. 3. Possible aspiration pneumonia. 4. Possible acute urinary tract infection. 5. Fluid overload. 6. Hypertension. 7. Multiple medications. 8. Dementia. 9. Abnormal MRI scan. RECOMMENDATIONS AND DISCUSSION: I recommend to continue current management and medications as mentioned earlier. We will initiate broad-spectrum IV antibiotics. Monitor fluid/electrolyte balance closely. Monitor creatinine closely. Multiple consultants are being following the patient closely. Overall prognosis guarded. Sensorium is slightly improved compared to yesterday. Discussed at length with the daughter. Once the patient's sensorium improves, PT OT evaluation, possible ECF rehab. Avoid sedatives and strong pain medications. See orders for details. MMODL / IJN: [id number] /
--- NOTE | 2022-05-29 14:45 | NM ---
EXAMINATION TYPE: NM bone scan whole body DATE OF EXAM: 05/29/2022 COMPARISON: CT scan 05/26/2022, MRI brain 05/27/2022 HISTORY: Calvarial lesion Delayed whole-body scanning was performed following the injection of 24.1 mCi Tc 99m MDP. Images acq uired 4.5 hours post injection. FINDINGS: There is a lucent area involving the parietal bone seen best on the lateral image. There does appear to be increased uptake involving the left frontal bone compatible with the CT abnormality. Abnormal uptake involving the right wrist, shoulders, sternoclavicular joints, bilateral ankle and fe et likely postarthritic or remote trauma. Faint uptake throughout the visualized vertebral column nonspecific but likely degenerative. IMPRESSION: 1. Abnormal uptake involving the calvarium as discussed above. Appears to correspond to the abnormal CT finding. Malignancy in the differential diagnosis.
--- NOTE | 2022-05-29 15:55 | P.PN ---
Subjective Progress Note Date: 05/29/22 This is a 77 year old female who was recently admitted after a left ankle fracture with multiple medical consultations following. Patient also had some acute altered mental status possible pneumonia and was started on antibiotics. Patient is continued on IV Zosyn with ID following. Concern for possible aspiration pneumonia. On exam today patient is awake, alert and oriented 3 and currently sitting up in the chair. at the bedside. Nephrology, cardiology, oncology, infectious disease, and neurology following along with orthopedics with plans for surgical intervention of the left ankle today. Patient is currently nothing by mouth and recommend to resume diet after surgery. Review of systems: Constitutional: No reports of fatigue, fever, or chills Cardiovascular: No reports of chest pain or palpitations Respiratory: No reports of shortness of breath or cough GI: No reports of nausea, no reports of of vomiting, or diarrhea : No reports of dysuria or retention Neurovascular: reports of generalized weakness, reports left ankle pain All medications have been reviewed Active Medications Acetaminophen (Acetaminophen Tab 325 Mg Tab) 650 mg PO Q6HR PRN PRN Reason: Fever and/ or Mild Pain Hydrocodone Bitart/Acetaminophen (Hydrocodone/Apap 5-325mg 1 Each Tab) 1 each PO Q4HR PRN PRN Reason: Moderate Pain (Scale 4 to 6) Last Admin: 05/29/22 12:21 Dose: 1 each Albuterol/Ipratropium (Ipratropium-Albuterol 3 Ml Neb) 3 ml INHALATION RT-QID PRN PRN Reason: Shortness Of Breath Or Wheezing Last Admin: 05/25/22 08:56 Dose: 3 ml Albuterol/Ipratropium (Ipratropium-Albuterol 3 Ml Neb) 3 ml INHALATION RT-TID [facility] Last Admin: 05/29/22 11:41 Dose: 3 ml Albuterol/Ipratropium (Ipratropium-Albuterol 3 Ml Neb) 3 ml INHALATION RT-TID PRN PRN Reason: Shortness Of Breath Or Wheezing Amlodipine Besylate (Amlodipine 10 Mg Tab) 10 mg PO BID [facility] Last Admin: 05/29/22 08:26 Dose: 10 mg Aspirin (Aspirin 81 Mg) 81 mg PO HS [facility] Last Admin: 05/28/22 20:47 Dose: 81 mg Clonidine HCl (Clonidine 0.3 Mg/24hr Patch) 1 patch TRANSDERM Q7D [facility] Last Admin: 05/27/22 07:00 Dose: 1 patch Docusate Sodium (Docusate 100 Mg Cap) 100 mg PO BID PRN PRN Reason: Constipation Last Admin: 05/29/22 08:26 Dose: 100 mg Ergocalciferol (Ergocalciferol 1,250 Mcg (50,000 Iu) Capsule) 1,250 mcg PO SAMANIEGO [facility] Last Admin: 05/26/22 09:28 Dose: 1,250 mcg Famotidine (Famotidine 20 Mg Tab) 20 mg PO DAILY [facility] Last Admin: 05/29/22 08:26 Dose: 20 mg Folic Acid (Folic Acid 1 Mg Tab) 1 mg PO DAILY [facility] Last Admin: 05/29/22 08:25 Dose: 1 mg Furosemide (Furosemide 10 Mg/Ml 4 Ml Vial) 40 mg IV DAILY@0930 [facility] Last Admin: 05/29/22 08:26 Dose: 40 mg Guaifenesin (Guaifenesin 600 Mg Tablet.Er) 1,200 mg PO Q12HR [facility] Last Admin: 05/29/22 08:25 Dose: 1,200 mg Heparin Sodium (Porcine) (Heparin Sodium,Porcine/Pf 5,000 Unit/0.5 Ml Syringe) 5,000 unit SQ Q12HR [facility] Last Admin: 05/29/22 08:26 Dose: 5,000 unit Hydralazine HCl (Hydralazine Hcl 20 Mg/Ml 1 Ml Vial) 10 mg IVP Q6HR PRN PRN Reason: Blood Pressure - High Last Admin: 05/27/22 03:45 Dose: 10 mg Hydralazine HCl (Hydralazine Hcl 25 Mg Tab) 25 mg PO BID [facility] Piperacillin Sod/Tazobactam (Sod 3.375 gm/ Sodium Chloride) 100 mls @ 25 mls/hr IVPB Q8HR [facility]; Protocol Last Admin: 05/29/22 08:26 Dose: 25 mls/hr Isosorbide Mononitrate (Isosorbide Mononitrate Er 30 Mg Tab.Er.24h) 30 mg PO DAILY [facility] Last Admin: 05/29/22 08:25 Dose: 30 mg Magnesium Hydroxide (Magnesium Hydroxide 2,400 Mg/10 Ml Cup) 2,400 mg PO DAILY PRN PRN Reason: Constipation Methotrexate (Methotrexate Sodium 2.5 Mg Tab) 20 mg PO SAMANIEGO@1400 [facility] Last Admin: 05/26/22 15:08 Dose: Not Given Mirtazapine (Mirtazapine 15 Mg Tab) 7.5 mg PO HS [facility] Last Admin: 05/28/22 20:48 Dose: 7.5 mg Multivitamins (Multivitamins, Thera 1 Each Tab) 1 each PO DAILY [facility] Last Admin: 05/29/22 08:26 Dose: 1 each Naloxone HCl (Naloxone 0.4 Mg/Ml 1 Ml Vial) 0.2 mg IV Q2M PRN PRN Reason: Opioid Reversal Ondansetron HCl (Ondansetron 4 Mg/2 Ml Vial) 4 mg IVP Q8HR PRN PRN Reason: Nausea And Vomiting Potassium Chloride (Potassium Chloride Er 20 Meq Tab.Er) 20 meq PO DAILY [facility] Last Admin: 05/29/22 08:25 Dose: 20 meq Pregabalin (Pregabalin 100 Mg Cap) 100 mg PO BID@1400,2100 [facility] Last Admin: 05/28/22 20:47 Dose: 100 mg PHYSICAL EXAMINATION: GENERAL: The patient is alert and oriented x4, Well developed, well nourished. HEENT: Pupils are round and equally reacting to light. EOMI. no scleral icterus. No conjunctival pallor. Normocephalic, atraumatic. No pharyngeal erythema. No thyromegaly. CARDIOVASCULAR: S1 and S2 muffled PULMONARY: diminished breath sounds bilaterally with no wheezing or rhonchi noted. ABDOMEN: soft. Nontender on exam. obese. non-distended, normoactive bowel sounds. No palpable organomegaly. MUSCULOSKELETAL: No joint swelling or deformity. EXTREMITIES: No cyanosis, clubbing, or pedal edema. Left lower extremity elevated on some pillows currently with a temporary splint NEUROLOGICAL: Gross neurological examination did not reveal any focal deficits. Diffuse weakness SKIN: No rashes. Assessment: Status post left ankle fracture Change in mental status, possibly secondary to metabolic toxic encephalopathy due to aspiration pneumonia Possible acute urinary tract infection Fluid overload Hypertension Dementia abnormal MRI scan GI prophylaxis DVT prophylaxis Full code Plan: Recommend to continue with current medications and management with multiple medical consultations following. Patient does have a left ankle fracture and plan is for orthopedics to perform surgical intervention on this left ankle today. Patient is currently nothing by mouth. Patient was started on IV Zosyn and will continue and mentation is much improved. Recommend follow-up labs and will continue to monitor closely. Will have physical therapy evaluated the patient and discussed with case management/social work about possible ECF for continued strength and mobility. Will await surgical report. Recommend continue with pain management conservatively and avoid sedatives and strong narcotics if possible. Will also add incentive spirometer and encourage the pa tient at least 10 times every hour while awake. Due to multiple complex medical issues, prognosis is guarded. The impression and plan of care has been dictated by Anitha Gillespie, nurse practitioner as directed. Dr. Ray MD I have performed a history and examination and MDM of this patient, discussed the same with the dictator, and agree with the dictator's assessment and plan as written ,documented as a scribe. Based on total visit time, I have performed more than 50% of the visit. Any additional findings or plans will be noted. Objective - Vital Signs Vital signs: Vital Signs Temp 97.9 F 05/29/22 12:43 Pulse 71 05/29/22 12:43 Resp 18 05/29/22 14:00 BP 130/74 05/29/22 12:43 Pulse Ox 95 05/29/22 12:43 FiO2 Intake & Output 05/28/22 05/29/22 05/29/22 18:59 06:59 18:59 Intake Total 118 240 Output Total 600 300 700 Balance -482 -60 -700 Weight 65 kg Intake: Oral 118 240 Output: Urine 600 300 700 Stool 0 Other: Voiding Method External Catheter External Catheter External Catheter # Voids 2 - Labs CBC & Chem 7: 05/28/22 08:17 05/28/22 08:17 Labs: Abnormal Lab Results - Last 24 Hours (Table) 05/26/22 05/28/22 Range/Units 17:50 08:17 Total Protein (PEP) 5.7 L (6.2-8.2) g/dL Albumin (PEP) 2.98 L (3.80-4.90) g/dL [id number]-[id number] 0.44 H (0.10-0.40) g/dL Procalcitonin 0.37 H (0.02-0.09) ng/mL Free [place] LC, Quant 4.06 H (0.33-1.94) mg/dL Free Lambda LC, Quant <5.49 H (0.57-2.63) mg/dL Microbiology - Last 24 Hours (Table) 05/27/22 14:39 Blood Culture - Preliminary Blood No Growth after 24 hours
--- NOTE | 2022-05-29 16:29 | P.PN ---
Subjective Patient is seen for follow-up for acute kidney injury. Renal function has improved with serum creatinine down to 1.2 from 1.4 mg/dL. Patient is sitting on a bedside chair. No significant complaints today. 24-hour urine output at 900 mL. Patient has an external catheter Objective - Vital Signs Vital signs: Vital Signs Temp 97.9 F 05/29/22 12:43 Pulse 71 05/29/22 12:43 Resp 18 05/29/22 14:00 BP 130/74 05/29/22 12:43 Pulse Ox 95 05/29/22 12:43 FiO2 Intake & Output 05/28/22 05/29/22 05/29/22 18:59 06:59 18:59 Intake Total 118 240 Output Total 600 300 700 Balance -482 -60 -700 Weight 65 kg Intake: Oral 118 240 Output: Urine 600 300 700 Stool 0 Other: Voiding Method External Catheter External Catheter External Catheter # Voids 2 - Exam Awake, comfortable, not in any acute distress Examination of the heart S1 and S2 Examination of the lungs bilateral breath sounds are heard Abdomen is soft nontender Examination lower extremity shows no edema right leg, left leg in cast SURVEY AND MAPPING TECHNICIAN exam grossly intact - Labs CBC & Chem 7: 05/28/22 08:17 05/28/22 08:17 Labs: Abnormal Lab Results - Last 24 Hours (Table) 05/26/22 05/28/22 Range/Units 17:50 08:17 Total Protein (PEP) 5.7 L (6.2-8.2) g/dL Albumin (PEP) 2.98 L (3.80-4.90) g/dL [id number] 0.44 H (0.10-0.40) g/dL Procalcitonin 0.37 H (0.02-0.09) ng/mL Free [place] LC, Quant 4.06 H (0.33-1.94) mg/dL Free Lambda LC, Quant <5.49 H (0.57-2.63) mg/dL Microbiology - Last 24 Hours (Table) 05/27/22 14:39 Blood Culture - Preliminary Blood No Growth after 24 hours Assessment and Plan Assessment: 1. Acute kidney injury, nonoliguric likely secondary to fluctuations in blood pressure with blood pressure ranging from 190 6 mmHg systolic to 1 18 mmHg. Patient also received IV contrast however this was on the same day as the elevated creatinine and therefore it is most likely not related to that however we need to continue to monitor over the next few days for contrast nephropathy. 2. Status post fall and left ankle fracture 3. Mental status changes most likely metabolic encephalopathy currently impr kenny. No acute findings on brain MRI 4. Pyuria with no evidence of underlying UTI 5. Hypertension with fluctuating blood pressures maintained on Norvasc clonidine and hydralazine 6. 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 [place] light chains were elevated with significantly low lambda light chains.
[2022-05-29] MEDS: PREGABALIN 100 MG CAP PO SCH ×2 (16:30→20:40)
[2022-05-29] MEDS: hydrALAZINE HCL 50 MG TAB PO SCH (18:20)
[2022-05-29] MEDS: hydrALAZINE HCL 25 MG TAB PO SCH (20:39)
[2022-05-29] MEDS: ASPIRIN 81 MG PO SCH (20:41)
[2022-05-29] MEDS: MIRTAZAPINE 15 MG TAB PO SCH (20:41)
--- NOTE | 2022-05-29 22:06 | P.PN ---
Subjective Progress Note Date: 05/28/22 Principal diagnosis: Fever Patient is a 77 year female presented to the hospital after the patient did have a fall with resultant left ankle fracture treated conservative ly she did have a fever during this hospital stay that has prompted this infectious disease consultation. On today's evaluation that is 05/28/2022 patient is afebrile today, the patient is breathing comfortably patient denies having any chest pain she did have occasional cough no nausea no vomiting no abdominal pain and no diarrhea Objective - Vital Signs Vital signs: Vital Signs Temp 97.9 F 05/28/22 11:41 Pulse 84 05/28/22 11:58 Resp 18 05/28/22 11:41 BP 164/57 05/28/22 11:41 Pulse Ox 95 05/28/22 11:41 FiO2 Intake & Output 05/27/22 05/28/22 05/28/22 18:59 06:59 18:59 Intake Total 120 240 118 Output Total 200 500 600 Balance -48 -112 -341 Weight 71.5 kg Intake: Oral 120 240 118 Output: Urine 200 500 600 Other: Voiding Method External Catheter External Catheter External Catheter - Exam GENERAL DESCRIPTION: An elderly female lying in bed in no distress RESPIRATORY SYSTEM: Unlabored breathing , decreased breath sounds at bases HEART: S1 S2 regular rate and rhythm , ABDOMEN: Soft , no tenderness EXTREMITIES: No edema feet - Labs CBC & Chem 7: 05/28/22 08:17 05/28/22 08:17 Labs: Abnormal Lab Results - Last 24 Hours (Table) 05/28/22 05/28/22 Range/Units 08:17 08:17 RBC 3.36 L (3.80-5.40) m/uL Hgb 10.2 L (11.4-16.0) gm/dL Hct 31.4 L (34.0-46.0) % RDW 16.8 H (11.5-15.5) % Plt Count 142 L (150-450) k/uL Carbon Dioxide 21 L (22-30) mmol/L BUN 23 H (7-17) mg/dL Creatinine 1.23 H (0.52-1.04) mg/dL Glucose 104 H (74-99) mg/dL C-Reactive Protein 9.0 H (<1.0) mg/dL Total Protein 5.7 L (6.3-8.2) g/dL Albumin 3.2 L (3.5-5.0) g/dL Assessment and Plan (1) Fever Current Visit: No Status: Acute Code(s): R50.9 - FEVER, UNSPECIFIED SNOMED Code(s): 914207020 Plan: 1patient with low-grade fever during this hospital stay and this patient presented to hospital with left ankle fracture traumatic and has been treated conservatively patient did have a congested cough however chest x-ray completed yesterday did not show any acute cardiopulmonary disease urine was slightly positive however culture has been negative patient complaining of constipation with no bowel movement for the last 4 days question of abdominal source or fever related to her trauma. 2patient did have a CT of the chest and abdominal pelvis and no evidence of any acute abnormality 3patient tocontinue with Zosyn while waiting for the cultures to be finalize Time with Patient: Less than 30
--- NOTE | 2022-05-29 22:08 | P.PN ---
Subjective Progress Note Date: 05/29/22 Principal diagnosis: Fever Patient is a 77 year female presented to the hospital after the patient did have a fall with resultant left ankle fracture treated conservative ly she did have a fever during this hospital stay that has prompted this infectious disease consultation. On today's evaluation that is 05/29/2022 patient did have a low-grade fever last evening however the patient is afebrile this morning, the patient is breathing comfortably patient denies having any chest pain she did have occasional cough no nausea no vomiting no abdominal pain and no diarrhea Objective - Vital Signs Vital signs: Vital Signs Temp 97.9 F 05/29/22 12:43 Pulse 71 05/29/22 12:43 Resp 18 05/29/22 14:00 BP 130/74 05/29/22 12:43 Pulse Ox 95 05/29/22 12:43 FiO2 Intake & Output 05/28/22 05/29/22 05/29/22 18:59 06:59 18:59 Intake Total 118 240 Output Total 600 300 700 Balance -482 -60 -700 Weight 65 kg Intake: Oral 118 240 Output: Urine 600 300 700 Stool 0 Other: Voiding Method External Catheter External Catheter External Catheter # Voids 2 - Exam GENERAL DESCRIPTION: An elderly female lying in bed in no distress RESPIRATORY SYSTEM: Unlabored breathing , decreased breath sounds at bases HEART: S1 S2 regular rate and rhythm , ABDOMEN: Soft , no tenderness EXTREMITIES: No edema feet - Labs CBC & Chem 7: 05/28/22 08:17 05/28/22 08:17 Labs: Abnormal Lab Results - Last 24 Hours (Table) 05/26/22 05/28/22 Range/Units 17:50 08:17 Total Protein (PEP) 5.7 L (6.2-8.2) g/dL Albumin (PEP) 2.98 L (3.80-4.90) g/dL [id number] 0.44 H (0.10-0.40) g/dL Procalcitonin 0.37 H (0.02-0.09) ng/mL Free [place] LC, Quant 4.06 H (0.33-1.94) mg/dL Free Lambda LC, Quant <5.49 H (0.57-2.63) mg/dL Microbiology - Last 24 Hours (Table) 05/27/22 14:39 Blood Culture - Preliminary Blood No Growth after 24 hours Assessment and Plan (1) UTI (urinary tract infection) Current Visit: No Status: Acute Code(s): N39.0 - URINARY TRACT INFECTION, SITE NOT SPECIFIED SNOMED Code(s): 15706900 Plan: 1patient with low-grade fever during this hospital stay and this patient presented to hospital with left ankle fracture traumatic and has been treated conservatively patient did have a congested cough however chest x-ray completed yesterday did not show any acute cardiopulmonary disease urine was slightly positive however culture has been negative patient complaining of constipation w ith no bowel movement for the last 4 days question of abdominal source or fever related to her trauma. 2patient did have a CT of the chest and abdominal pelvis and no evidence of any acute abnormality 3patient fever has resolved and cultures so far pending continue with the Zosyn will transition oral antibiotic on discharge Time with Patient: Less than 30
[2022-05-30] MEDS: IPRATROPIUM-ALBUTEROL 3 ML NEB INHALATION SCH ×3 (08:13→20:05)
--- NOTE | 2022-05-30 08:14 | PN ---
PROGRESS NOTE SUBJECTIVE: Mrs. Roca's blood pressure has finally improved a lot. Her left fibular fracture will be treated conservatively. OBJECTIVE: VITALS: Stable. NECK: JVD is evident. HEART: S1, S2 heard normally, short systolic murmur noted. LUNGS: Reveal improved air entry. ABDOMEN: Exam is unchanged. LOWER EXTREMITIES: Exam is unchanged, edema has improved. We will continue current medical regimen and current medications for blood pressure to be continued. I will see the patient as needed. MMODL / IJN: [id number] /
[2022-05-30] MEDS: amLODIPine 10 MG TAB PO SCH ×2 (09:33→20:42)
[2022-05-30] MEDS: hydrALAZINE HCL 25 MG TAB PO SCH ×2 (09:33→20:42)
[2022-05-30] MEDS: FUROSEMIDE 40 MG TAB PO SCH (09:34)
[2022-05-30] MEDS: ISOSORBIDE MONONITRATE ER 30 MG TAB.ER.24H PO SCH (09:35)
[2022-05-30] MEDS: MULTIVITAMINS, THERA 1 EACH TAB PO SCH (09:38)
[2022-05-30] MEDS: FAMOTIDINE 20 MG TAB PO SCH (09:38)
[2022-05-30] MEDS: guaiFENesin 600 MG TABLET.ER PO SCH ×2 (09:39→20:42)
[2022-05-30] MEDS: FOLIC ACID 1 MG TAB PO SCH (09:39)
[2022-05-30] MEDS: DOCUSATE 100 MG CAP PO PRN ×2 (09:41→20:41)
[2022-05-30] MEDS: POTASSIUM CHLORIDE ER 20 MEQ TAB.ER PO SCH (09:42)
[2022-05-30] MEDS: HEPARIN SODIUM,PORCINE/PF 5,000 UNIT/0.5 ML SYRINGE SQ SCH ×2 (09:44→21:34)
[2022-05-30] MEDS: PIPERACILLIN-TAZOBACTAM 3.375 GM in SODIUM CHLORIDE 0.9% 100 ML IVPB SCH ×3 (09:45→23:21)
[2022-05-30] MEDS: ACETAMINOPHEN TAB 325 MG TAB PO PRN ×2 (11:42→20:41)
--- NOTE | 2022-05-30 11:42 | P.PN ---
Subjective Patient is seen for follow-up for acute kidney injury. Renal function has improved with serum creatinine down to 1.2 from 1.4 mg/dL. This morning patient is laying in bed. According to family she has not been eating much. No labs noted from today Patient has had good urine output Objective - Vital Signs Vital signs: Vital Signs Temp 97.0 F L 05/30/22 08:00 Pulse 72 05/30/22 11:33 Resp 16 05/30/22 08:00 BP 142/67 05/30/22 08:00 Pulse Ox 98 05/30/22 08:14 FiO2 Intake & Output 05/29/22 05/30/22 05/30/22 18:59 06:59 18:59 Intake Total 640 118 Output Total 700 1400 0 Balance -700 -760 118 Weight 61.5 kg Intake: Intake, IV Titration 100 Amount Piperacillin-Tazobactam 3 100 .375 gm In Sodium Chloride 0.9% 100 ml @ 25 mls/hr IVPB Q8HR [facility] Rx# :[id number] Oral 540 118 Output: Urine 700 1400 Stool 0 0 Other: Voiding Method External Catheter External Catheter External Catheter - Exam Awake, comfortable, not in any acute distress, sleeping but arousable Examination of the heart S1 and S2 Examination of the lungs bilateral breath sounds are heard Abdomen is soft nontender Examination lower extremity shows no edema right leg, left leg in cast ASSOCIATE PROFESSOR OF EDUCATION exam grossly intact - Labs CBC & Chem 7: 05/28/22 08:17 05/28/22 08:17 Labs: Abnormal Lab Results - Last 24 Hours (Table) 05/26/22 Range/Units 17:50 Albumin (PEP) 2.98 L (3.80-4.90) g/dL [id number]-[id number] 0.44 H (0.10-0.40) g/dL Microbiology - Last 24 Hours (Table) 05/27/22 14:39 Blood Culture - Preliminary Blood No Growth after 48 hours Assessment and Plan Assessment: 1. Acute kidney injury, nonoliguric likely secondary to fluctuations in blood pressure with blood pressure ranging from 190 6 mmHg systolic to 1 18 mmHg. Patient also received IV contrast however this was on the same day as the elevated creatinine and therefore it is most likely not related to that however we need to continue to monitor over the next few days for contrast nephropathy. 2. Status post fall and left ankle fracture 3. Mental status changes most likely metabolic encephalopathy currently impro noemi. No acute findings on brain MRI 4. Pyuria with no evidence of underlying UTI 5. Hypertension with fluctuating blood pressures maintained on Norvasc clonidine and hydralazine 6. Lytic lesion on the skull with elevated light chains Plan: Check labs today Continue with Lasix Encourage increased oral intake.
--- NOTE | 2022-05-30 11:46 | XR ---
EXAMINATION TYPE: XR bone survey complete DATE OF EXAM: 05/30/2022 COMPARISON: CT scan 06-15, bone scan 05/29/2022 HISTORY: Monoclonal gammopathy Bony calvarium : 2 views of the bony calvarium demonstrate. Left frontal bone lucent lesion correspo nds to the CT scan abnormality Spine: Two views of the cervical, thoracic and lumbar spines are submitted. Diffuse osteopenia with multilevel hypertrophic and degenerative change of the spine. Very mild wedge deformities in the midt horacic spine with diffuse osteopenia and postsurgical change in the lumbar spine. No definite osseou s lesions. PELVIS: Single view of the pelvis demonstrates. Arthropathy of the hips with diffuse osteopenia. UPPER EXTREMITIES: Two views of the upper extremities. Diffuse osteopenia. Cortical thickening bilate rally along the mid shaft of the humerus. No osseous lesions identified. LOWER EXTREMITIES: 2 views of the lower extremities. Vascular calcification is noted. Use osteopenia and arthropathy of the knee joint and hip joint. Faint chondrocalcinosis noted involving the right k nee. No intraosseous lesions Subsegmental changes at the lung bases. IMPRESSION: 1. There is a single lucent lesion in the left frontal bone concordant with the CT and nuclear medici ne abnormality.
[2022-05-30 11:56] LABS: Anisocytosis Slight; Basophils # (A) 0.1 k/uL (0-0.2); Basophils % (A) 1 %; Eosinophils # (A) 0.2 k/uL (0-0.7); Eosinophils % (A) 4 %; HCT 27.3 % (34.0-46.0); Hypochromasia Slight; Lymphocytes # (A) 1.3 k/uL (1.0-4.8); Lymphocytes % (A) 19 %; MCH 30.3 pg (25.0-35.0); MCHC 33.1 g/dL (31.0-37.0); MCV 91.5 fL (80.0-100.0); Mean Platelet Volume 10.2; Monocytes # (A) 0.9 k/uL (0-1.0); Monocytes % (A) 12 %; Neutrophils # (A) 4.1 k/uL (1.3-7.7); Neutrophils % (A) 60 %; Platelet Count 218 k/uL (150-450); Poikilocytosis Slight; RBC 2.98 m/uL (3.80-5.40); RDW 16.5 % (11.5-15.5); WBC 6.8 k/uL (3.8-10.6)
[2022-05-30 12:07] LABS: Albumin 2.9 g/dL (3.5-5.0); Calcium 9.1 mg/dL (8.4-10.2); Potassium 4.2 mmol/L (3.5-5.1); Total Bilirubin 0.4 mg/dL (0.2-1.3); Total Protein 5.3 g/dL (6.3-8.2)
--- NOTE | 2022-05-30 14:07 | P.CN ---
Psychiatric Consult - . Consult date: 05/30/22 Consult:: 05/30/22 14:07 IDENTIFYING DATA: This patient is a 77-year-old female with significant history of depression and presented to the hospital for a fall. HISTORY OF PRESENT ILLNESS: The patient presented to the hospital 05/22/2022 for a fall psychiatry was consulted for evaluation of depression as there is concern that the patient has been depressed and not eating as well. Upon assessment on the medical floor however, the patient reports that she is feeling a normal amount of depression and anxiety secondary to her medical condition. She reports that if her health was improved, she feels like her mood would improve overall. She is vehemently denying any suicidal or homicidal ideation, intention, and/or plan. She is not reporting any auditory or visual hallucinations. She is denying any paranoia or other delusions. The patient has been adherent with her medication is not reporting any sniffing side effects. This provider discussed with the patient that we do have the option of increasing her Remeron in order to help address depression, anxiety, insomnia, and appetite however the patient does not wish to go up on the medication. She reports that she was able to eat more today and feels that her mood is overall improving. The patient is also stating that she feels like she does not want to gain anymore weight. PAST PSYCHIATRIC HISTORY: Patient has a a history of anxiety and depression. Patient denies being on any psychiatric medications. Patient denies any previous psychiatric hospitalizations. Patient denies any psychiatric outpatient follow- up. Patient denies any history of suicide attempts in the past. 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 CATARACTS RONY. carpal tunnelWITH LENS IMPLANT 2007, lower back spinal fusion 2017, left knee surgery 2018., Past Anesthesia/Blood Transfusion Reactions: Postoperative Nausea & Vomiting (PONV) Additional Past Anesthesia/Blood Transfusion Reaction / Comment(s): PONV and hard to wake up Past Psychological History: Anxiety, Depression Additional Psychological History / Comment(s): . Smoking Status: Former smoker Past Alcohol Use History: None Reported Additional Past Alcohol Use History / Comment(s): QUIT 2007 WAS 1PPD smoker since age 17 or 19. She denies any medical marijuana, marijuana, street drug or alcohol use. She lives at home with her of 52 years. Past Drug Use History: None Reported Vital Signs Temp 97.9 F 05/30/22 12:00 Pulse 72 05/30/22 12:00 Resp 16 05/30/22 12:00 BP 125/78 05/30/22 12:00 Pulse Ox 96 05/30/22 12:00 FiO2 Intake & Output 05/29/22 05/30/22 05/30/22 18:59 06:59 18:59 Intake Total 640 118 Output Total 700 1400 1300 Balance -700 760 -1182 Weight 61.5 kg Intake: Intake, IV Titration 100 Amount Piperacillin-Tazobactam 3 100 .375 gm In Sodium Chloride 0.9% 100 ml @ 25 mls/hr IVPB Q8HR [facility] Rx# :[id number] Oral 540 118 Output: Urine 700 1400 1300 Stool 0 0 Other: Voiding Method External Catheter External Catheter External Catheter Laboratory Results WBC 6.8 k/uL (3.8-10.6) 05/30/22 11:21 RBC 2.98 m/uL (3.80-5.40) L 05/30/22 11:21 Hgb 9.0 gm/dL (11.4-16.0) L 05/30/22 11:21 Hct 27.3 % (34.0-46.0) L 05/30/22 11:21 MCV 91.5 fL (80.0-100.0) 05/30/22 11:21 MCH 30.3 pg (25.0-35.0) 05/30/22 11: MCHC 33.1 g/dL (31.0-37.0) 05/30/22 11:21 RDW 16.5 % (11.5-15.5) H 05/30/22 11:21 Plt Count 218 k/uL (150-450) 05/30/22 11:21 MPV 10.2 05/30/22 11:21 Immature Gran % (Auto) 0.4 % 05/26/22 04:26 Absolute Nucleated RBC 0 X 10*3/uL (0.00-0.00) 05/26/22 04:26 Neutrophils % 60 % 05/30/22 11:21 Lymphocytes % 19 % 05/30/22 11:21 Monocytes % 12 % 05/30/22 11:21 Eosinophils % 4 % 05/30/22 11:21 Basophils % 1 % 05/30/22 11:21 Immature Gran # 0.02 X 10*3/uL (0.00-0.04) 05/26/22 04:26 Neutrophils # 4.1 k/uL (1.3-7.7) 05/30/22 11:21 Lymphocytes # 1.3 k/uL (1.0-4.8) 05/30/22 11:21 Monocytes # 0.9 k/uL (0-1.0) 05/30/22 11:21 Eosinophils # 0.2 k/uL (0-0.7) 05/30/22 11:21 Basophils # 0.1 k/uL (0-0.2) 05/30/22 11:21 NRBC/100 WBC Diff 0 /100 WBCS (0.0-0.0) 05/26/22 04:26 Hypochromasia Slight 05/30/22 11:21 Poikilocytosis Slight 05/30/22 11:21 Anisocytosis Slight 05/30/22 11:21 PT 10.7 sec (9.0-12.0) 05/26/22 17:50 INR 1.0 (<1.2) 05/26/22 17:50 APTT 25.6 sec (22.0-30.0) 05/26/22 17:50 Sodium 136 mmol/L (137-145) L 05/30/22 11:21 Potassium 4.2 mmol/L (3.5-5.1) 05/30/22 11:21 Chloride 105 mmol/L (98-107) 05/30/22 11:21 Carbon Dioxide 21 mmol/L (22-30) L 05/30/22 11:21 Anion Gap 10 mmol/L 05/30/22 11:21 BUN 34 mg/dL (7-17) H 05/30/22 11:21 Creatinine 1.39 mg/dL (0.52-1.04) H 05/30/22 11:21 Est GFR (CKD-EPI)AfAm 43 (>60 ml/min/1.73 sqM) 05/30/22 11:21 Est GFR (CKD-EPI)NonAf 37 (>60 ml/min/1.73 sqM) 05/30/22 11:21 BUN/Creatinine Ratio 17.65 Ratio (12.00-20.00) 05/26/22 04:26 Glucose 108 mg/dL (74-99) H 05/30/22 11:21 POC Glucose (mg/dL) 125 mg/dL (70-110) H 05/26/22 17:23 POC Glu [place] ID Elizabeth Garcia 05/26/22 17:23 Calcium 9.1 mg/dL (8.4-10.2) 05/30/22 11:21 Magnesium 2.1 mg/dL (1.6-2.3) 05/28/22 08:17 Total Bilirubin 0.4 mg/dL (0.2-1.3) 05/30/22 11:21 AST 24 U/L (14-36) 05/30/22 11:21 ALT 21 U/L (4-34) 05/30/22 11:21 Alkaline Phosphatase 74 U/L (38-126) 05/30/22 11:21 Ammonia <9 umol/L (<30) 05/25/22 11:09 Troponin I 0.116 ng/mL (0.000-0.034) H* 05/27/22 10:29 C-Reactive Protein 9.0 mg/dL (<1.0) H 05/28/22 08:17 Total Protein 5.3 g/dL (6.3-8.2) L 05/30/22 11:21 Total Protein (PEP) 5.7 g/dL (6.2-8.2) L 05/26/22 17:50 Albumin 2.9 g/dL (3.5-5.0) L 05/30/22 11:21 Albumin (PEP) 2.98 g/dL (3.80-4.90) L 05/26/22 17:50 Globulin 2.5 g/dL 05/26/22 17:50 Albumin/Globulin Ratio 1.3 05/26/22 17:50 Zrzip-9-Xxjusyshb 0.44 g/dL (0.10-0.40) H 05/26/22 17:50 Hkhco-6-Vajkjgxxa 0.63 g/dL (0.60-1.00) 05/26/22 17:50 Beta Globulins 0.88 g/dL (0.60-1.30) 05/26/22 17:50 Gamma Globulins 0.77 g/dL (0.70-1.50) 05/26/22 17:50 PEP Interpretation 05/26/22 17:50 Vitamin B12 429.0 pg/mL (200.0-944.0) 05/25/22 11:09 Folate >20.00 ng/mL (4.40-31.00) 05/25/22 11:09 Procalcitonin 0.37 ng/mL (0.02-0.09) H 05/28/22 08:17 TSH 0.543 mIU/L (0.465-4.680) 05/25/22 11:09 Urine Color Yellow 05/23/22 06:30 Urine Appearance Cloudy (Clear) H 05/23/22 06:30 Urine pH 5.0 (5.0-8.0) 05/23/22 06:30 Ur Specific [place] 1.027 (1.001-1.035) 05/23/22 06:30 Urine Protein Trace (Negative) H 05/23/22 06:30 Urine Glucose (UA) Negative (Negative) 05/23/22 06:30 Urine Ketones Negative (Negative) 05/23/22 06:30 Urine Blood Negative (Negative) 05/23/22 06:30 Urine Nitrite Negative (Negative) 05/23/22 06:30 Urine Bilirubin Negative (Negative) 05/23/22 06:30 Urine Urobilinogen <2.0 mg/dL (<2.0) 05/23/22 06:30 Ur Leukocyte Esterase Large (Negative) H 05/23/22 06:30 Urine WBC 21 /hpf (0-5) H 05/23/22 06:30 Ur Squamous Epith Cells 1 /hpf (0-4) 05/23/22 06:30 Urine Mucus Rare /hpf (None) H 05/23/22 06:30 Free [place] LC, Quant 4.06 mg/dL (0.33-1.94) H 05/26/22 17:50 Free [place] LC, Quant <5.49 mg/dL (0.57-2.63) H 05/26/22 17:50 Allergies Allergy/AdvReac Type Severity Reaction Status Date / Time alprazolam [From Xanax] Allergy Unknown Verified 05/23/22 09:38 amlodipine [From Norvasc] Allergy Unknown Verified 05/23/22 09:38 diazepam [From Valium] Allergy hard time Verified 05/23/22 09:38 coming out of anesthesia amoxicillin trihydrate AdvReac Severe Nausea & Verified 05/23/22 09:38 [From Augmentin] Vomiting & Diarrhea potassium clavulanate AdvReac Severe Nausea & Verified 05/23/22 09:38 [From Augmentin] Vomiting & Diarrhea sulfamethoxazole AdvReac Severe affected Verified 05/23/22 09:38 [From Bactrim] muscles - couldn't move trimethoprim [From Bactrim] AdvReac Severe affected Verified 05/23/22 09:38 muscles - couldn't move Zvynzxr-RZO-XrY Reductase AdvReac leg cramps Verified 05/23/22 09:38 Inhibitor [Owcoxjr-Pbr-Kpm Reductase Inhibitor] Sulfa (Sulfonamide AdvReac Unknown Verified 05/23/22 09:38 Antibiotics) ALLERGIES: As per EMR CHEMICAL DEPENDENCY HISTORY: Patient denies any alcohol, marijuana, tobacco, or illicit drug use. FAMILY PSYCHIATRIC/SUBSTANCE USE HISTORY: No reported family psychiatric history SOCIAL HISTORY: Patient is and lives with her . They have been for 52 years. They have children together. Prior to retiring, the patient worked at [employer]. MENTAL STATUS EXAM: General Appearance: Patient appears to be stated age is alert, pleasant, and cooperative. Patient appears to have fair hygiene and grooming wearing hospital gown with fair eye contact. Behavior: Patient is calmly lying in bed without any agitated behavior. Speech: Patient's speech is fluent and nonpressured. Mood/Affect: Patient reports their mood is "doing okay", affect is congruent and constricted however patient is able to laugh and smile appropriately Suicidality/Homicidality: Patient denies having any suicidal or homicidal id eation intent or plan. Perceptions: Patient denies any visual hallucinations and denies any auditory hallucinations Though content/process: There is no evidence of any delusional thought content a nd thought process is linear and goal-directed. Memory and concentration: AOX3, grossly intact for the purposes of this session. Can spell "WORLD" backwards Judgment and insight: Fair IMPRESSIONS: Major depressive disorder Acute bilateral interstitial pneumonia Mild sepsis with Fever, with mild leukocytosis PLAN: -At this time patient DOES NOT meet criteria for inpatient psychiatric admission . -Delirium precautions recommended with patient including - avoiding use of narcotics and [employer] sedatives, limit anticholinergic medications when possible, frequent re-orientation, minimize use of restraints, open window shades during the day and close them at night -Would recommend the following medication changes/additions: Continue Remeron 7.5 mg by mouth at bedtime to address depression -Will continue to follow along 05/30/22 14:07
[2022-05-30 14:21] VITALS: BMI 24.0
--- NOTE | 2022-05-30 15:21 | P.PN ---
Subjective Progress Note Date: 05/30/22 This is a 77 year old female who was recently admitted after a left ankle fracture with multiple medical consultations following. Patient also had some acute altered mental status possible pneumonia and was started on antibiotics. Patient is continued on IV Zosyn with ID following. Concern for possible aspiration pneumonia. On exam today patient is awake, alert and oriented 3 and currently sitting up in the chair. at the bedside. Nephrology, cardiology, oncology, infectious disease, and neurology following along with orthopedics with plans for surgical intervention of the left ankle today. Patient is currently nothing by mouth and recommend to resume diet after surgery. 05/30/2022 Patient is seen and evaluated in follow-up as morning and per nursing staff mentation was poor and patient more lethargic and recommend holding narcotics. Patient did receive [place] yesterday evening around 5 PM along with her scheduled Lyrica last night. Daughter was at the bedside and concerned as her mentation has been very sketchy and intermittently having good days and bad days from 1 mi nute to the next. Recommend holding narcotics and evaluating closely. Patient is currently undergoing bone scan with multiple medical consultations including nephrology, infectious disease, cardiology, neurology, oncology following. Orthopedics has evaluated the patient with no plans for surgical intervention and will be casting the left ankle at this time. Patient with history of anxiety and depression and will consult psychiatry. Patient would likely benefit from ECF and will await PT/OT evaluation. Prognosis remains guarded at this time. A.m. labs currently pending at this time. Patient is afebrile with no reports of nausea or vomiting noted and patient denies chest pain or shortn ess of breath. Review of systems: Constitutional: No reports of fatigue, fever, or chills Cardiovascular: No reports of chest pain or palpitations Respiratory: No reports of shortness of breath or cough GI: No reports of nausea, no reports of of vomiting, or diarrhea : No reports of dysuria or retention Neurovascular: reports of generalized weakness, reports left ankle pain All medications have been reviewed Active Medications Acetaminophen (Acetaminophen Tab 325 Mg Tab) 650 mg PO Q6HR PRN PRN Reason: Fever and/ or Mild Pain Last Admin: 05/30/22 11:42 Dose: 650 mg Albuterol/Ipratropium (Ipratropium-Albuterol 3 Ml Neb) 3 ml INHALATION RT-QID PRN PRN Reason: Shortness Of Breath Or Wheezing Last Admin: 05/25/22 08:56 Dose: 3 ml Albuterol/Ipratropium (Ipratropium-Albuterol 3 Ml Neb) 3 ml INHALATION RT-TID [facility] Last Admin: 05/30/22 11:32 Dose: 3 ml Albuterol/Ipratropium (Ipratropium-Albuterol 3 Ml Neb) 3 ml INHALATION RT-TID PRN PRN Reason: Shortness Of Breath Or Wheezing Amlodipine Besylate (Amlodipine 10 Mg Tab) 10 mg PO BID [facility] Last Admin: 05/30/22 09:33 Dose: 10 mg Aspirin (Aspirin 81 Mg) 81 mg PO HS [facility] Last Admin: 05/29/22 20:41 Dose: 81 mg Clonidine HCl (Clonidine 0.3 Mg/24hr Patch) 1 patch TRANSDERM Q7D [facility] Last Admin: 05/27/22 07:00 Dose: 1 patch Docusate Sodium (Docusate 100 Mg Cap) 100 mg PO BID PRN PRN Reason: Constipation Last Admin: 05/30/22 09:41 Dose: 100 mg Ergocalciferol (Ergocalciferol 1,250 Mcg (50,000 Iu) Capsule) 1,250 mcg PO SAMANIEGO [facility] Last Admin: 05/26/22 09:28 Dose: 1,250 mcg Famotidine (Famotidine 20 Mg Tab) 20 mg PO DAILY [facility] Last Admin: 05/30/22 09:38 Dose: 20 mg Folic Acid (Folic Acid 1 Mg Tab) 1 mg PO DAILY [facility] Last Admin: 05/30/22 09:39 Dose: 1 mg Furosemide (Furosemide 40 Mg Tab) 40 mg PO DAILY [facility] Last Admin: 05/30/22 09:34 Dose: 40 mg Guaifenesin (Guaifenesin 600 Mg Tablet.Er) 1,200 mg PO Q12HR [facility] Last Admin: 05/30/22 09:39 Dose: 1,200 mg Heparin Sodium (Porcine) (Heparin Sodium,Porcine/Pf 5,000 Unit/0.5 Ml Syringe) 5,000 unit SQ Q12HR [facility] Last Admin: 05/30/22 09:44 Dose: 5,000 unit Hydralazine HCl (Hydralazine Hcl 20 Mg/Ml 1 Ml Vial) 10 mg IVP Q6HR PRN PRN Reason: Blood Pressure - High Last Admin: 05/27/22 03:45 Dose: 10 mg Hydralazine HCl (Hydralazine Hcl 25 Mg Tab) 25 mg PO BID [facility] Last Admin: 05/30/22 09:33 Dose: 25 mg Piperacillin Sod/Tazobactam (Sod 3.375 gm/ Sodium Chloride) 100 mls @ 25 mls/hr IVPB Q8HR [facility]; Protocol Last Admin: 05/30/22 09:45 Dose: 25 mls/hr Isosorbide Mononitrate (Isosorbide Mononitrate Er 30 Mg Tab.Er.24h) 30 mg PO DAILY [facility] Last Admin: 05/30/22 09:35 Dose: 30 mg Magnesium Hydroxide (Magnesium Hydroxide 2,400 Mg/10 Ml Cup) 2,400 mg PO DAILY PRN PRN Reason: Constipation Methotrexate (Methotrexate Sodium 2.5 Mg Tab) 20 mg PO SAMANIEGO@1400 [facility] Last Admin: 05/26/22 15:08 Dose: Not Given Mirtazapine (Mirtazapine 15 Mg Tab) 7.5 mg PO HS [facility] Last Admin: 05/29/22 20:41 Dose: 7.5 mg Multivitamins (Multivitamins, Thera 1 Each Tab) 1 each PO DAILY [facility] Last Admin: 05/30/22 09:38 Dose: 1 each Naloxone HCl (Naloxone 0.4 Mg/Ml 1 Ml Vial) 0.2 mg IV Q2M PRN PRN Reason: Opioid Reversal Ondansetron HCl (Ondansetron 4 Mg/2 Ml Vial) 4 mg IVP Q8HR PRN PRN Reason: Nausea And Vomiting Potassium Chloride (Potassium Chloride Er 20 Meq Tab.Er) 20 meq PO DAILY [facility] Last Admin: 05/30/22 09:42 Dose: 20 meq PHYSICAL EXAMINATION: GENERAL: The patient is alert and oriented x2, with occasional confusion and lethargic Well developed, well nourished. HEENT: Pupils are round and equally reacting to light. EOMI. no scleral icterus. No conjunctival pallor. Normocephalic, atraumatic. No pharyngeal erythema. No thyromegaly. CARDIOVASCULAR: S1 and S2 muffled PULMONARY: diminished breath sounds bilaterally with no wheezing or rhonchi noted. ABDOMEN: soft. Nontender on exam. obese. non-distended, normoactive bowel sounds. No palpable organomegaly. MUSCULOSKELETAL: No joint swelling or deformity. EXTREMITIES: No cyanosis, clubbing, or pedal edema. Left lower extremity elevated on some pillows currently with a temporary splint NEUROLOGICAL: Gross neurological examination did not reveal any focal deficits. Diffuse weakness SKIN: No rashes. Assessment: Status post left ankle fracture Change in mental status, possibly secondary to metabolic toxic encephalopathy due to aspiration pneumonia Possible acute urinary tract infection Fluid overload Hypertension Dementia abnormal MRI scan GI prophylaxis DVT prophylaxis Full code Plan: Recommend to continue with current medications and management with multiple medical consultations following. Patient does have a left ankle fracture and no plan for surgical intervention per daughter at the bedside along with orthopedics and plan is for casting of the left ankle as family feels she is not appropriate for any surgical interventions and would not sustain anesthesia given her current mentation and overall disease progression at this time. Patient was started on IV Zosyn and will continue and mentation is much improved although continues to have intermittent periods of lucency and confusion and lethargic. Daughter at the bedside reports this is been ongoing over the last few days and progressively getting worse. Psychiatry consulted for her anxiety and depression and appreciate input and recommendations. Recommend follow-up labs and will continue to monitor closely. Common PT/OT therapy evaluation and will discuss with case management/social work about possible ECF for continued strength and mobility. Recommend continue with pain management conservatively and avoid sedatives and strong narcotics if possible. Due to multiple complex medical issues, overall prognosis is extremely guarded. The impression and plan of care has been dictated by nurse gurvinder Osbornt [email or web address] as directed. Dr. Ray MD I have performed a history and examination and MDM of this patient, discussed the same with the dictator, and agree with the dictator's assessment and plan as written ,documented as a scribe. Based on total visit time, I have performed more than 50% of the visit. Any additional findings or plans will be noted. Objective - Vital Signs Vital signs: Vital Signs Temp 97.0 F L 05/30/22 08:00 Pulse 66 05/30/22 08:24 Resp 16 05/30/22 08:00 BP 142/67 05/30/22 08:00 Pulse Ox 98 05/30/22 08:14 FiO2 Intake & Output 05/29/22 05/30/22 05/30/22 18:59 06:59 18:59 Intake Total 640 118 Output Total 700 1400 Balance -700 -760 118 Weight 61.5 kg Intake: Intake, IV Titration 100 Amount Piperacillin-Tazobactam 3 100 .375 gm In Sodium Chloride 0.9% 100 ml @ 25 mls/hr IVPB Q8HR [facility] Rx# :[id number] Oral 540 118 Output: Urine 700 1400 Stool 0 Other: Voiding Method External Catheter External Catheter - Labs CBC & Chem 7: 05/30/22 11:21 05/30/22 11:21 Labs: Abnormal Lab Results - Last 24 Hours (Table) 05/26/22 Range/Units 17:50 Albumin (PEP) 2.98 L (3.80-4.90) g/dL Hmgop-9-Uohyvltcm 0.44 H (0.10-0.40) g/dL Free [place] LC, Quant 4.06 H (0.33-1.94) mg/dL Free [place] LC, Quant <5.49 H (0.57-2.63) mg/dL Microbiology - Last 24 Hours (Table) 05/27/22 14:39 Blood Culture - Preliminary Blood No Growth after 48 hours
--- NOTE | 2022-05-30 15:59 | CDI ---
Documentation Clarification Form Date: 05/30/2022 03:41:56 PM From: Laquita Ledesma CCS, CCDS Admit Date: 05/24/2022 02:53:00 PM Patient Name: Alyssa Roca Visit Number: [id number] Discharge Date: ATTENTION: The Clinical Documentation Specialists (CDI) and [facility] Coding Staff appreciate your assistance in clarifying documentation. Please respond to the clarification below the line at the bottom and electronically sign. The CDI & [facility] Coding staff will review the response and follow-up if needed. Please note: Queries are made part of the Legal Health Record. If you have any questions, please contact the author of this message via ITS. Dr. Brady Klein: Your patient has the documented diagnosis of unspecified CHF in the 05/24, 05/25 and 05/26 Attending Physician Progress Notes. Additional information regarding the Type & Acuity of CHF is requested. History/Risk Factors per the 05/23 H/P: CAD status post CABG, CHF, Hypertension, Hyperlipidemia, Former smoker. Clinical Indicators: Presented to the ED on 05/22 after a trip & fall in her kitchen landing on her left knee with her foot folded under her. The patient was recently in rehab and released to home, this is the third fall since being home. Admit with Multiple falls, Closed fracture of the left distal fibula and Impaired ambulation. Per the 05/27 Cardiology Consult, an ECHO was ordered. 05/27 ECHO: EF 55-60%, Mild MR, Mild AR, Aortic sclerosis, Mild TR. Normal size & systolic function. 05/27 VS: T 100, P 90, R 16, BP 177/90, PO 97 RA, BMI: 24.0 05/26 LAB (no labs on 05/27 except 1 troponin: 0.116): RBC 3.40, hgb 10.1, Hct 31.4, Plt Ct 125; Na 136, BUN 24, Creatinine 1.40, Glucose 117, AST 50, ALT 35, Troponin 0.116, Total protein 5.8, Albumin 3.3. BNP not done. 05/23 Left Ankle XR: Extensive soft tissue edema. 05/26 CXR: No active cardiopulmonary disease. 05/27 CXR: Combination of chronic pulmonary fibrosis, some superimposed mild venous congestion or interstitial pneumonitis. Treatment 05/27: IV Lasix 40 mg x1, IV Lasix 40 mg Daily. 05/30: po Lasix 40 mg Daily. Home meds: Bumex, INH Duoneb, Coreg, Imdur In your professional opinion, can you please clarify the Acuity & Type of CHF if known? [ ] Chronic Diastolic Heart Failure [ ] Acute on Chronic Diastolic Heart Failure, please specify if Acute is Present on Admission [ ] Heart Failure is ruled out [ ] Other, please specify [ ] Unable to determine (Template Last Revised: September 2020) Unabl e to determine MTDD
--- NOTE | 2022-05-30 17:55 | P.PN ---
Subjective Progress Note Date: 05/30/22 Principal diagnosis: incidental finding of a skull lesion in follow-up today patient has no new physical complaints. No fevers, nausea, pain is currently managed, no unusual shortness of breath, no lower extremity swelling. Family is at the bedside. Objective - Vital Signs Vital signs: Vital Signs Temp 97.9 F 05/30/22 12:00 Pulse 72 05/30/22 12:00 Resp 16 05/30/22 12:00 BP 125/78 05/30/22 12:00 Pulse Ox 96 05/30/22 12:00 FiO2 Intake & Output 05/29/22 05/30/22 05/30/22 18:59 06:59 18:59 Intake Total 640 118 Output Total 700 1400 1300 Balance -700 -760 -1182 Weight 61.5 kg Intake: Intake, IV Titration 100 Amount Piperacillin-Tazobactam 3 100 .375 gm In Sodium Chloride 0.9% 100 ml @ 25 mls/hr IVPB Q8HR [facility] Rx# :[id number] Oral 540 118 Output: Urine 700 1400 1300 Stool 0 0 Other: Voiding Method External Catheter External Catheter External Catheter - Constitutional General appearance: Present: cooperative, no acute distress, obese - EENT Eyes: Present: anicteric sclerae, EOMI ENT: Present: hearing grossly normal - Respiratory Details: respirations even and unlabored at rest - Peripheral edema leg Peripheral Edema: bilateral: Trace - Integumentary Integumentary: Present: pale - Musculoskeletal Musculoskeletal: Present: generalized weakness - Psychiatric Psychiatric Comment(s): A& O 3, calm - Labs CBC & Chem 7: 05/30/22 11:21 05/30/22 11:21 Labs: Abnormal Lab Results - Last 24 Hours (Table) 05/30/22 05/30/22 Range/Units 11:21 11:21 RBC 2.98 L (3.80-5.40) m/uL Hgb 9.0 L (11.4-16.0) gm/dL Hct 27.3 L (34.0-46.0) % RDW 16.5 H (11.5-15.5) % Sodium 136 L (137-145) mmol/L Carbon Dioxide 21 L (22-30) mmol/L BUN 34 H (7-17) mg/dL Creatinine 1.39 H (0.52-1.04) mg/dL Glucose 108 H (74-99) mg/dL Total Protein 5.3 L (6.3-8.2) g/dL Albumin 2.9 L (3.5-5.0) g/dL Microbiology - Last 24 Hours (Table) 05/27/22 14:39 Blood Culture - Preliminary Blood No Growth after 48 hours - Imaging and Cardiology nuclear medicine bone scan report reviewed Assessment and Plan (1) Bone anomaly Current Visit: Yes Status: Acute Priority: High Code(s): 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 CT AP neg for any mass or LAD. NM bone scan revealed no other bone lesions, lighting up only around the edge of the solitary skull lesion. Bone survey has been ordered. Myeloma labs showing a M spike of 0.15 g/dL. A very small amount, would not anticipate at this level this causing a bone lesion. Skeletal survey has been ordered for specific skeletal evaluation for myeloma lesions. 24-hour urine requested to be collected, kappa/lambda light chains as well as urine electrophoresis. Immunoglobulin levels ordered, beta-[address] Diggs explained to the patient and her family that all of the findings so far are not severe and not requiring immediate intervention. If results of testing does not give a definite answer may have to consider routine follow up and possibly bone marrow biopsy in the future. All their questions were answered to their satisfaction. Pending completion of further work up Attests:I have seen and examined pt, performed H&P, developed impression and plan of care. Discussed with dictator. Agree with documentation, dictated as a scribe. Time with Patient: Greater than 30
[2022-05-30] MEDS: MAGNESIUM HYDROXIDE 2,400 MG/10 ML CUP PO PRN (20:41)
[2022-05-30] MEDS: MIRTAZAPINE 15 MG TAB PO SCH (20:42)
[2022-05-30] MEDS: ASPIRIN 81 MG PO SCH (20:42)
--- NOTE | 2022-05-30 23:32 | P.PN ---
Subjective Progress Note Date: 05/29/22 05/29/2022: Patient was seen for a follow-up. Patient's was present today. Patient has remarkably improved. She is alert and oriented, back to baseline. Patient had a bone scan performed today. Patient denies any headache, no dizziness. 05/28/2022: Patient was seen for a follow-up. Patient is sitting in the recliner, appears encephalopathic. Patient's daughter was present. She states that she was doing very well yesterday and also this morning, but now she is sleepy, probably tired, worn out, as she had a lot of activity earlier today. No new worsening. Telemetry monitoring showing second-degree heart block, type II, heart rate in the 40s. 05/27/2022: Patient initially seen by Dr. Ruben Ames. Please refer to his note for details. Patient was seen for a follow-up. Patient's daughter was also present today. She states that patient was doing fine on 05/22/2022. On she became confused, not interactive appropriately. On Friday she was still the same. In the afternoon she was scheduled to have orthopedic surgery for her foot, when during preop evaluation, patient became unresponsive. Surgery was canceled. Her blood pressure was very high. She was confused. Per daughter, patient slept well on Friday. On Friday she was doing better, almost 90% back to baseline. She was alert and awake oriented, carrying on conversation. Friday, which is yesterday she started slipping down again. At around 2 PM she was "out of it". Stroke code was activated at 5:25 PM. Patient was picking at her blankets. She was talking nonsense and asking her to find out what time the pain is coming in. Last known well was 2 PM. NIH stroke scale was 4. No TPA recommended. EEG and MRI of the brain was ordered. Patient was considered not a candidate for TPA. She finally settled down at midnight. Patient at present is laying comfortably in the bed. Still appears delirious, sometimes playing with her hands. She is bringing her hand to her nose purposelessly. Per daughter, patient is still sleepy, fidgety at times, nodes off. She is receiving [place] 5 mg once a day. Objective - Vital Signs Vital signs: Vital Signs Temp 97.9 F 05/29/22 12:43 Pulse 71 05/29/22 12:43 Resp 18 05/29/22 14:00 BP 130/74 05/29/22 12:43 Pulse Ox 95 05/29/22 12:43 FiO2 Intake & Output 05/28/22 05/29/22 05/29/22 18:59 06:59 18:59 Intake Total 118 240 Output Total 600 300 700 Balance -482 -60 -700 Weight 65 kg Intake: Oral 118 240 Output: Urine 600 300 700 Stool 0 Other: Voiding Method External Catheter External Catheter External Catheter # Voids 2 - Exam Patient is fully alert and awake. Mentation is much clearer. Patient knows it is May 2022 and that she is in the hospital. She knows that she lives in [facility]. Speech and language functions are normal. Patient can name and repeat. Her pupils are round and reacting, visual dennison appears full. Extraocular muscles are intact. Facial sensation is normal. Face is symmetric. Hearing is mild to moderately decreased bilaterally to hand rub. Tongue protrudes the midline. Shoulder shrug normal. Muscle strength is normal in the arms distally and proximally. In the right lower limb, hip flexion 4+, ankle dorsiflexion 5. Left leg not checked because of being in the cast. No ataxia in the upper limbs. Sensations equal in the arms. - Labs CBC & Chem 7: 05/30/22 11:21 05/30/22 11:21 Labs: Abnormal Lab Results - Last 24 Hours (Table) 05/26/22 05/28/22 Range/Units 17:50 08:17 Total Protein (PEP) 5.7 L (6.2-8.2) g/dL Albumin (PEP) 2.98 L (3.80-4.90) g/dL Gzqty-4-Slprvgvrm 0.44 H (0.10-0.40) g/dL Procalcitonin 0.37 H (0.02-0.09) ng/mL Free [place] LC, Quant 4.06 H (0.33-1.94) mg/dL Free Lambda LC, Quant <5.49 H (0.57-2.63) mg/dL Microbiology - Last 24 Hours (Table) 05/27/22 14:39 Blood Culture - Preliminary Blood No Growth after 24 hours Assessment and Plan Assessment: Fluctuating and altered mental status likely due delirium, possible underlying metabolic encephalopathy. Etiology multifactorial as mentioned below. Patient's mentation much improved today. Possible hypertensive encephalopathy and component underlying UTI and medication effect ([place]) Abnormal chest x-ray, with evidence of possible fluid overload versus pn eumonitis. Fall and seem mechanical that resulted in left fibula and ankle/foot fracture Uncontrolled hypertension as during this hospital stay systolic in 200's. Probable underlying acute UTI History of coronary artery disease status post CABG History of lower back spinal fusion in 2018 Anemia, mild renal insufficiency, borderline hepatic functions. Mildly elevated cardiac enzymes. Plan: Patient has delirium, patient's mentation has much improved today. Her orientation, level of alertness has much improved. MRI of the brain revealed no evidence of a recent infarct. Mild to moderate diffuse cerebral atrophy and chronic small vessel ischemic change is redemonstrated. Enhancing left frontal calvarial lesion corresponds to lytic lesion on the CT. Differential includes metastatic disease versus possible myeloma deposit. Correlate clinically. IM to address abnormal MRI report. May consider hematology oncology consultation. Continue aspirin 81 mg daily. 2-D echo revealed normal size and systolic function. Mild mitral aortic and tricuspid regurgitation. EF is normal 55-60%. CTA of brain is reported as "negative". There is approximate 50% stenosis at the origin of the left ICA. B12 is 429, folate > 20.0 Hemoglobin A1c 5.7 Cardiology on board for elevated cardiac enzymes. Patient on Zosyn for possible infection. EEG 05/27/2022 was abnormal due to background slowing of at least moderate degree. This is suggestive of generalized cerebral dysfunction as can be seen with toxic metabolic encephalopathy or due to diffuse structural brain abnormality. Clinical correlation is recommended. No epileptiform activity was seen. Orthopedic team is on board We'll defer the rest of the medical management to the primary team DVT prophylaxis: Patient on heparin subcu every 12 hours per Discussed with patient's in detail.
--- NOTE | 2022-05-30 23:41 | P.PN ---
Subjective Progress Note Date: 05/30/22 05/30/2022: Patient was seen for a follow-up. The nurse perfect served at 10:35 AM the patient is seeming to have worsening mentation today. Yesterday she was awake and alert and appropriate all day. Today she is lethargic, responds to painful stimuli, won't open her eyes. Alert to person only. Primary team wanted neurology to be aware. Shortly after at 11:47 AM the nurse informed that she is awake and appropriate now. I came to see the patient, she was fully alert and awake, almost as good as yesterday. Patient offers no complaints. Her was also present today. 05/29/2022: Patient was seen for a follow-up. Patient's was present today. Patient has remarkably improved. She is alert and oriented, back to baseline. Patient had a bone scan performed today. Patient denies any headache, no dizziness. 05/28/2022: Patient was seen for a follow-up. Patient is sitting in the recliner, appears encephalopathic. Patient's daughter was present. She states that she was doing very well yesterday and also this morning, but now she is sleepy, probably tired, worn out, as she had a lot of activity earlier today. No new worsening. Telemetry monitoring showing second-degree heart block, type II, heart rate in the 40s. 05/27/2022: Patient initially seen by Dr. Ruben Ames. Please refer to his note for details. Patient was seen for a follow-up. Patient's daughter was also present today. She states that patient was doing fine on 05/22/2022. On she became confused, not interactive appropriately. On Friday she was still the same. In the afternoon she was scheduled to have orthopedic surgery for her foot, when during preop evaluation, patient became unresponsive. Surgery was canceled. Her blood pressure was very high. She was confused. Per daughter, patient slept well on Friday. On Friday she was doing better, almost 90% back to baseline. She was alert and awake oriented, carrying on conversation. Friday, which is yesterday she started slipping down again. At around 2 PM she was "out of it". Stroke code was activated at 5:25 PM. Patient was picking at her blankets. She was talking nonsense and asking her to find out what time the pain is coming in. Last known well was 2 PM. NIH stroke scale was 4. No TPA recommended. EEG and MRI of the brain was ordered. Patient was considered not a candidate for TPA. She finally settled down at midnight. Patient at present is laying comfortably in the bed. Still appears delirious, sometimes playing with her hands. She is bringing her hand to her nose purposelessly. Per daughter, patient is still sleepy, fidgety at times, nodes off. She is receiving [place] 5 mg once a day. Objective - Vital Signs Vital signs: Vital Signs Temp 97.9 F 05/30/22 15:40 Pulse 70 05/30/22 15:40 Resp 18 05/30/22 15:40 BP 146/52 05/30/22 15:40 Pulse Ox 95 05/30/22 15:40 FiO2 Intake & Output 05/29/22 05/30/22 05/30/22 18:59 06:59 18:59 Intake Total 640 118 Output Total 700 1400 1300 Balance -700 -760 -1182 Weight 61.5 kg 61.5 kg Intake: Intake, IV Titration 100 Amount Piperacillin-Tazobactam 3 100 .375 gm In Sodium Chloride 0.9% 100 ml @ 25 mls/hr IVPB Q8HR [facility] Rx# :[id number] Oral 540 118 Output: Urine 700 1400 1300 Stool 0 0 Other: Voiding Method External Catheter External Catheter External Catheter - Exam Patient is fully alert and awake. Mentation is much clearer. Patient knows it is May 2022 and that she is in [facility] in [place]. Speech and language functions are normal. Patient can name and repeat. Her pupils are round and reacting, visual dennison appears full. Extraocular muscles are intact. Facial sensation is normal. Face is symmetric. Hearing is mild to moderately decreased bilaterally to hand rub. Tongue protrudes the midline. Shoulder shrug normal. Muscle strength is normal in the arms distally and proximally. In the right lower limb, hip flexion 4+, ankle dorsiflexion 5. Left leg not checked because of being in the cast. No ataxia in the upper limbs. Sensations equal in the arms. Patient has peripheral edema. - Labs CBC & Chem 7: 05/30/22 11:21 05/30/22 11:21 Labs: Abnormal Lab Results - Last 24 Hours (Table) 05/30/22 05/30/22 Range/Units 11:21 11:21 RBC 2.98 L (3.80-5.40) m/uL Hgb 9.0 L (11.4-16.0) gm/dL Hct 27.3 L (34.0-46.0) % RDW 16.5 H (11.5-15.5) % Sodium 136 L (137-145) mmol/L Carbon Dioxide 21 L (22-30) mmol/L BUN 34 H (7-17) mg/dL Creatinine 1.39 H (0.52-1.04) mg/dL Glucose 108 H (74-99) mg/dL Total Protein 5.3 L (6.3-8.2) g/dL Albumin 2.9 L (3.5-5.0) g/dL Microbiology - Last 24 Hours (Table) 05/27/22 14:39 Blood Culture - Preliminary Blood No Growth after 48 hours Assessment and Plan Assessment: Fluctuating and altered mental status likely due delirium, possible underlying metabolic encephalopathy. Etiology multifactorial as mentioned below. Cesar emerson's mentation was slightly worse in the morning, but now back to baseline. She is fully alert and awake. Possible hypertensive encephalopathy and component underlying UTI and medication effect ([place]) Abnormal chest x-ray, with evidence of possible fluid overload versus pneumonitis. Fall and seem mechanical that resulted in left fibula and ankle/foot fracture Uncontrolled hypertension as during this hospital stay systolic in 200's. Probable underlying acute UTI History of coronary artery disease status post CABG History of lower back spinal fusion in 2018 Anemia, mild renal insufficiency, borderline hepatic functions. Mildly elevated cardiac enzymes. Monoclonal gammopathy. 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 Plan: Patient has delirium, patient's mentation has much improved today. Her orient ation, level of alertness has much improved. MRI of the brain revealed no evidence of a recent infarct. Mild to moderate diffuse cerebral atrophy and chronic small vessel ischemic change is redemonstrated. Enhancing left frontal calvarial lesion corresponds to lytic lesion on the CT. Differential includes metastatic disease versus possible myeloma deposit. Correlate clinically. Bone scan revealed abnormal uptake involving the calvarium. Appearance corresponds to the abnormal CT finding. Malignancy in the differential diagnosis. Skeletal survey performed today again reveals single lucent lesion in the left frontal bone at the same location as above. Hematology oncology on board. Continue aspirin 81 mg daily. 2-D echo revealed normal size and systolic function. Mild mitral aortic and tricuspid regurgitation. EF is normal 55-60%. CTA of brain is reported as "negative". There is approximate 50% stenosis at the origin of the left ICA. B12 is 429, folate > 20.0 Hemoglobin A1c 5.7 Cardiology on board for elevated cardiac enzymes. Patient on Zosyn for possible infection. EEG 05/27/2022 was abnormal due to background slowing of at least moderate degree. This is suggestive of generalized cerebral dysfunction as can be seen with toxic metabolic encephalopathy or due to diffuse structural brain abnormality. Clinical correlation is recommended. No epileptiform activity was seen. Orthopedic team is on board We'll defer the rest of the medical management to the primary team DVT prophylaxis: Patient on heparin subcu every 12 hours per Discussed with patient's in detail. Neurologically clear for transfer to rehab, pending clearance from other specialties.
[2022-05-31 08:47] LABS: Anisocytosis Slight; Basophils # (A) 0.1 k/uL (0-0.2); Basophils % (A) 1 %; Eosinophils # (A) 0.1 k/uL (0-0.7); Eosinophils % (A) 2 %; HCT 29.8 % (34.0-46.0); HGB 9.8 gm/dL (11.4-16.0); Hypochromasia Moderate; Lymphocytes # (A) 1.2 k/uL (1.0-4.8); Lymphocytes % (A) 15 %; MCHC 32.7 g/dL (31.0-37.0); MCV 91.6 fL (80.0-100.0); Mean Platelet Volume 9.8; Monocytes # (A) 0.8 k/uL (0-1.0); Monocytes % (A) 10 %; Neutrophils # (A) 5.4 k/uL (1.3-7.7); Neutrophils % (A) 69 %; Platelet Count 267 k/uL (150-450); Poikilocytosis Slight; RBC 3.26 m/uL (3.80-5.40); RDW 16.4 % (11.5-15.5); WBC 7.8 k/uL (3.8-10.6)
[2022-05-31] MEDS: IPRATROPIUM-ALBUTEROL 3 ML NEB INHALATION SCH ×3 (08:49→20:24)
[2022-05-31] MEDS: FUROSEMIDE 40 MG TAB PO SCH (08:53)
[2022-05-31] MEDS: MULTIVITAMINS, THERA 1 EACH TAB PO SCH (08:53)
[2022-05-31] MEDS: ISOSORBIDE MONONITRATE ER 30 MG TAB.ER.24H PO SCH (08:53)
[2022-05-31] MEDS: hydrALAZINE HCL 25 MG TAB PO SCH ×2 (08:53→20:13)
[2022-05-31] MEDS: amLODIPine 10 MG TAB PO SCH ×2 (08:53→20:13)
[2022-05-31] MEDS: POTASSIUM CHLORIDE ER 20 MEQ TAB.ER PO SCH (08:53)
[2022-05-31] MEDS: FOLIC ACID 1 MG TAB PO SCH (08:53)
[2022-05-31] MEDS: DOCUSATE 100 MG CAP PO PRN (08:53)
[2022-05-31] MEDS: MAGNESIUM HYDROXIDE 2,400 MG/10 ML CUP PO PRN (08:53)
[2022-05-31] MEDS: HEPARIN SODIUM,PORCINE/PF 5,000 UNIT/0.5 ML SYRINGE SQ SCH ×2 (08:53→20:12)
[2022-05-31] MEDS: PIPERACILLIN-TAZOBACTAM 3.375 GM in SODIUM CHLORIDE 0.9% 100 ML IVPB SCH ×3 (08:53→22:38)
[2022-05-31] MEDS: FAMOTIDINE 20 MG TAB PO SCH (08:53)
[2022-05-31] MEDS: guaiFENesin 600 MG TABLET.ER PO SCH ×2 (08:53→20:13)
[2022-05-31 09:06] LABS: Calcium 9.3 mg/dL (8.4-10.2); Potassium 4.4 mmol/L (3.5-5.1)
[2022-05-31 10:55] LABS: Beta 2 Microglobulin 4.8 mg/L (0.61-2.37); Immunoglobulin M 85.6 mg/dL (40.0-280.0)
--- NOTE | 2022-05-31 11:13 | P.PN ---
Subjective Progress Note Date: 05/31/22 Principal diagnosis: Left trimalleolar ankle fracture The patient was evaluated at bedside today for the application of a below-knee cast. As previously stated, the patient was initially scheduled for surgery on May 24 for open reduction and internal fixation of a left ankle fracture. However, due to altered mental status and other health conditions, it was determined that surgery would not be safe. Therefore after consultation with family, the decision was made to treat conservatively with below-knee cast. Objective - Vital Signs Vital signs: Vital Signs Temp 97.0 F L 05/31/22 08:00 Pulse 74 05/31/22 09:00 Resp 20 05/31/22 08:00 BP 169/74 05/31/22 08:00 Pulse Ox 97 05/31/22 08:49 FiO2 Intake & Output 05/30/22 05/31/22 05/31/22 18:59 06:59 18:59 Intake Total 118 240 Output Total 1300 1000 Balance -1182 -1000 240 Weight 61.5 kg Intake: Oral 118 240 Output: Urine 1300 1000 Stool 0 0 Other: Voiding Method External Catheter External Catheter # Bowel Movements 2 - Exam Patient lying in bed comfortably. She is awake and somewhat alert. She is able to respond to some questions however there were delays in her answers and sometimes the patient stopped verbalizing. Lower extremity examination: The splint is still in place. There is no evidence of significant loosening. Capillary refill time is intact to all digits on the left foot. Patient is able to wiggle her toes on command. Admits to feeling lightheaded touch in her toes. - Labs CBC & Chem 7: 05/31/22 08:04 05/31/22 08:04 Labs: Abnormal Lab Results - Last 24 Hours (Table) 05/30/22 05/30/22 05/31/22 Range/Units 11:21 11:21 08:04 RBC 2.98 L (3.80-5.40) m/uL Hgb 9.0 L (11.4-16.0) gm/dL Hct 27.3 L (34.0-46.0) % RDW 16.5 H (11.5-15.5) % Sodium 136 L (137-145) mmol/L Carbon Dioxide 21 L (22-30) mmol/L BUN 34 H (7-17) mg/dL Creatinine 1.39 H (0.52-1.04) mg/dL Glucose 108 H (74-99) mg/dL Total Protein 5.3 L (6.3-8.2) g/dL Albumin 2.9 L (3.5-5.0) g/dL Ltsx-4-Zsceqwfjpwmxl 4.80 H (0.61-2.37) mg/L IgA 404.0 H (60.0-350.0) mg/dL 05/31/22 05/31/22 Range/Units 08:04 08:04 RBC 3.26 L (3.80-5.40) m/uL Hgb 9.8 L (11.4-16.0) gm/dL Hct 29.8 L (34.0-46.0) % RDW 16.4 H (11.5-15.5) % Sodium (137-145) mmol/L Carbon Dioxide (22-30) mmol/L BUN 27 H (7-17) mg/dL Creatinine 1.29 H (0.52-1.04) mg/dL Glucose 101 H (74-99) mg/dL Total Protein (6.3-8.2) g/dL Albumin (3.5-5.0) g/dL Iftw-8-Xpoijffycoujt (0.61-2.37) mg/L IgA (60.0-350.0) mg/dL Microbiology - Last 24 Hours (Table) 05/27/22 14:39 Blood Culture - Preliminary Blood No Growth after 72 hours Assessment and Plan (1) Closed trimalleolar fracture of ankle Current Visit: Yes Status: Acute Onset Date: ~05/22/22 Code(s): S82.853A - DISPLACED TRIMALLEOLAR FRACTURE OF UNSP LOWER LEG, INIT SNOMED Code(s): 1876107 Plan: The previous below-knee splint in all padding were removed from the left leg. A well-padded fiberglass below-knee cast was applied to the left leg. Patient is to remain nonweightbearing on the left lower extremity. Cast is to remain clean and dry. Patient to schedule follow-up with orthopedics in 4 weeks.
--- NOTE | 2022-05-31 11:19 | P.PN ---
Subjective Patient is seen for follow-up for acute kidney injury. Renal function has improved with serum creatinine down to 1.2 from 1.4 mg/dL. No significant complaints today. Maintained on oral Lasix 40 mg daily Objective - Vital Signs Vital signs: Vital Signs Temp 97.0 F L 05/31/22 08:00 Pulse 74 05/31/22 09:00 Resp 20 05/31/22 08:00 BP 169/74 05/31/22 08:00 Pulse Ox 97 05/31/22 08:49 FiO2 Intake & Output 05/30/22 05/31/22 05/31/22 18:59 06:59 18:59 Intake Total 118 240 Output Total 1300 1000 Balance -1182 -1000 240 Weight 61.5 kg Intake: Oral 118 240 Output: Urine 1300 1000 Stool 0 0 Other: Voiding Method External Catheter External Catheter # Bowel Movements 2 - Exam Awake, comfortable, not in any acute distress, Examination of the heart S1 and S2 Examination of the lungs bilateral breath sounds are heard Abdomen is soft nontender Examination lower extremity shows no edema right leg, left leg in cast PULMONARY SPECIALIST exam grossly intact - Labs CBC & Chem 7: 05/31/22 08:04 05/31/22 08:04 Labs: Abnormal Lab Results - Last 24 Hours (Table) 05/30/22 05/30/22 05/31/22 Range/Units 11:21 11:21 08:04 RBC 2.98 L (3.80-5.40) m/uL Hgb 9.0 L (11.4-16.0) gm/dL Hct 27.3 L (34.0-46.0) % RDW 16.5 H (11.5-15.5) % Sodium 136 L (137-145) mmol/L Carbon Dioxide 21 L (22-30) mmol/L BUN 34 H (7-17) mg/dL Creatinine 1.39 H (0.52-1.04) mg/dL Glucose 108 H (74-99) mg/dL Total Protein 5.3 L (6.3-8.2) g/dL Albumin 2.9 L (3.5-5.0) g/dL Saan-5-Bbgsttnjefkzd 4.80 H (0.61-2.37) mg/L IgA 404.0 H (60.0-350.0) mg/dL 05/31/22 05/31/22 Range/Units 08:04 08:04 RBC 3.26 L (3.80-5.40) m/uL Hgb 9.8 L (11.4-16.0) gm/dL Hct 29.8 L (34.0-46.0) % RDW 16.4 H (11.5-15.5) % Sodium (137-145) mmol/L Carbon Dioxide (22-30) mmol/L BUN 27 H (7-17) mg/dL Creatinine 1.29 H (0.52-1.04) mg/dL Glucose 101 H (74-99) mg/dL Total Protein (6.3-8.2) g/dL Albumin (3.5-5.0) g/dL Lbgd-0-Auxedpebfsroy (0.61-2.37) mg/L IgA (60.0-350.0) mg/dL Microbiology - Last 24 Hours (Table) 05/27/22 14:39 Blood Culture - Preliminary Blood No Growth after 72 hours Assessment and Plan Assessment: 1. Acute kidney injury, nonoliguric likely secondary to fluctuations in blood pressure with blood pressure ranging from 190 mmHg systolic to 118 mmHg. Patient also received IV contrast however this was on the same day as the elevated creatinine and therefore it is most likely not related to that however we need to continue to monitor over the next few days for contrast nephropathy. 2. Status post fall and left ankle fracture with no plans for surgery at this time 3. Mental status changes most likely metabolic encephalopathy currently improved. No acute findings on brain MRI 4. Pyuria with no evidence of underlying UTI 5. Hypertension with fluctuating blood pressures maintained on Norvasc clonidine and hydralazine 6. Lytic lesion on the skull with elevated light chains Plan: Continue with Lasix Encourage increased oral intake.
--- NOTE | 2022-05-31 13:53 | P.PN ---
Subjective Progress Note Date: 05/31/22 Principal diagnosis: incidental finding of a skull lesion in follow-up today patient has no new physical complaints. She is drowsy but she answers questions appropriately Objective - Vital Signs Vital signs: Vital Signs Temp 98.2 F 05/31/22 11:18 Pulse 61 05/31/22 11:18 Resp 16 05/31/22 11:18 BP 148/66 05/31/22 11:18 Pulse Ox 99 05/31/22 11:18 FiO2 Intake & Output 05/30/22 05/31/22 05/31/22 18:59 06:59 18:59 Intake Total 118 240 Output Total 1300 1000 0 Balance -1182 -1000 240 Weight 61.5 kg Intake: Oral 118 240 Output: Urine 1300 1000 Stool 0 0 0 Other: Voiding Method External Catheter External Catheter External Catheter # Bowel Movements 2 - Constitutional General appearance: Present: cooperative, no acute distress, obese - EENT Eyes: Present: anicteric sclerae, EOMI ENT: Present: hearing grossly normal - Respiratory Details: resp even and unlabored - Musculoskeletal Musculoskeletal: Present: generalized weakness - Labs CBC & Chem 7: 05/31/22 08:04 05/31/22 08:04 Labs: Abnormal Lab Results - Last 24 Hours (Table) 05/31/22 05/31/22 05/31/22 Range/Units 08:04 08:04 08:04 RBC 3.26 L (3.80-5.40) m/uL Hgb 9.8 L (11.4-16.0) gm/dL Hct 29.8 L (34.0-46.0) % RDW 16.4 H (11.5-15.5) % BUN 27 H (7-17) mg/dL Creatinine 1.29 H (0.52-1.04) mg/dL Glucose 101 H (74-99) mg/dL Ohqf-2-Svvywbcnhlrlb 4.80 H (0.61-2.37) mg/L IgA 404.0 H (60.0-350.0) mg/dL Microbiology - Last 24 Hours (Table) 05/27/22 14:39 Blood Culture - Preliminary Blood No Growth after 72 hours - Imaging and Cardiology bone survey report reviewed Assessment and Plan (1) Bone anomaly Current Visit: Yes Status: Acute Priority: High Code(s): Q79.9 - CONGENITAL MALFORMATION OF MUSCULOSKELETAL SYSTEM, UNSP SNOMED Code(s): 19727126 (2) MGUS (monoclonal gammopathy of unknown significance) Current Visit: Yes Status: Acute Priority: Medium Code(s): D47.2 - MONOCLONAL GAMMOPATHY SNOMED Code(s): 749686022 Plan: Incidental finding of bone lesion on skull reported as lytic. CT AP neg for any mass or LAD. NM bone scan revealed no other bone lesions, lighting up only around the edge of the solitary skull lesion. Bone survey shows no other lesions suspicious for myeloma. Myeloma labs show M spike of 0.15 g/dL. A very small amount, would not anticipate at this level this causing a bone lesion. 24-hour urine requested to be collected, kappa/lambda light chains as well as urine electrophoresis. Immun oglobulins and beta-2 microglobulin ordered. Discussed with pt that none of the findings require immediate action/treatment at this time. There are several options to approach her situation. She could be placed on surveillance and have labs to check MM every few months. She could opt for more aggressive work up. She could empirically had radiation to the skull lesion. She would like to f/u for right now. No further work up right now, pending some testing that was already ordered.
--- NOTE | 2022-05-31 15:02 | P.PN ---
Subjective Progress Note Date: 05/31/22 This is a 77 year old female who was recently admitted after a left ankle fracture with multiple medical consultations following. Patient also had some acute altered mental status possible pneumonia and was started on antibiotics. Patient is continued on IV Zosyn with ID following. Concern for possible aspiration pneumonia. On exam today patient is awake, alert and oriented 3 and currently sitting up in the chair. at the bedside. Nephrology, cardiology, oncology, infectious disease, and neurology following along with orthopedics with plans for surgical intervention of the left ankle today. Patient is currently nothing by mouth and recommend to resume diet after surgery. 05/30/2022 Patient is seen and evaluated in follow-up as morning and per nursing staff mentation was poor and patient more lethargic and recommend holding narcotics. Patient did receive [place] yesterday evening around 5 PM along with her scheduled Lyrica last night. Daughter was at the bedside and concerned as her mentation has been very sketchy and intermittently having good days and bad days from 1 mi nute to the next. Recommend holding narcotics and evaluating closely. Patient is currently undergoing bone scan with multiple medical consultations including nephrology, infectious disease, cardiology, neurology, oncology following. Orthopedics has evaluated the patient with no plans for surgical intervention and will be casting the left ankle at this time. Patient with history of anxiety and depression and will consult psychiatry. Patient would likely benefit from ECF and will await PT/OT evaluation. Prognosis remains guarded at this time. A.m. labs currently pending at this time. Patient is afebrile with no reports of nausea or vomiting noted and patient denies chest pain or shortn ess of breath. 05/31/2022 Patient seen and evaluated in follow-up this morning with daughter at the bedside and patient is awake and alert. Total medical consultations following including orthopedics Dr. Art Clements with no plans for surgical intervention at this time and patient will be casted at the bedside and have outpatient follow-up. Neurology also following along with nephrology, oncology, cardiology. Patient is afebrile and denies chest pain or shortness of breath. Patient tolerating diet with no reports of nausea or vomiting noted. Patient continues with weakness and recommend physical therapy daily. Will evaluate patient after casting as patient may require ECF for continued strength and mobility. Patient and family are agreeable with this plan at this time. Continues with some discomfort and will continue with Tylenol and avoid narcotics if possible. Will resume her Lyrica at her scheduled dosing. Review of systems: Constitutional: No reports of fatigue, fever, or chills Cardiovascular: No reports of chest pain or palpitations Respiratory: No reports of shortness of breath or cough GI: No reports of nausea, no reports of of vomiting, or diarrhea : No reports of dysuria or retention Neurovascular: reports of generalized weakness, reports left ankle pain All medications have been reviewed Active Medications Acetaminophen (Acetaminophen Tab 325 Mg Tab) 650 mg PO Q6HR PRN PRN Reason: Fever and/ or Mild Pain Last Admin: 05/30/22 20:41 Dose: 650 mg Albuterol/Ipratropium (Ipratropium-Albuterol 3 Ml Neb) 3 ml INHALATION RT-TID [facility] Last Admin: 05/31/22 11:48 Dose: Not Given Albuterol/Ipratropium (Ipratropium-Albuterol 3 Ml Neb) 3 ml INHALATION RT-TID PRN PRN Reason: Shortness Of Breath Or Wheezing Amlodipine Besylate (Amlodipine 10 Mg Tab) 10 mg PO BID [facility] Last Admin: 05/31/22 08:53 Dose: 10 mg Aspirin (Aspirin 81 Mg) 81 mg PO HS [facility] Last Admin: 05/30/22 20:42 Dose: 81 mg Clonidine HCl (Clonidine 0.3 Mg/24hr Patch) 1 patch TRANSDERM Q7D [facility] Last Admin: 05/27/22 07:00 Dose: 1 patch Docusate Sodium (Docusate 100 Mg Cap) 100 mg PO BID PRN PRN Reason: Constipation Last Admin: 05/31/22 08:53 Dose: 100 mg Ergocalciferol (Ergocalciferol 1,250 Mcg (50,000 Iu) Capsule) 1,250 mcg PO SAMANIEGO [facility] Last Admin: 05/26/22 09:28 Dose: 1,250 mcg Famotidine (Famotidine 20 Mg Tab) 20 mg PO DAILY [facility] Last Admin: 05/31/22 08:53 Dose: 20 mg Folic Acid (Folic Acid 1 Mg Tab) 1 mg PO DAILY [facility] Last Admin: 05/31/22 08:53 Dose: 1 mg Furosemide (Furosemide 40 Mg Tab) 40 mg PO DAILY [facility] Last Admin: 05/31/22 08:53 Dose: 40 mg Guaifenesin (Guaifenesin 600 Mg Tablet.Er) 1,200 mg PO Q12HR [facility] Last Admin: 05/31/22 08:53 Dose: 1,200 mg Heparin Sodium (Porcine) (Heparin Sodium,Porcine/Pf 5,000 Unit/0.5 Ml Syringe) 5,000 unit SQ Q12HR [facility] Last Admin: 05/31/22 08:53 Dose: 5,000 unit Hydralazine HCl (Hydralazine Hcl 20 Mg/Ml 1 Ml Vial) 10 mg IVP Q6HR PRN PRN Reason: Blood Pressure - High Last Admin: 05/27/22 03:45 Dose: 10 mg Hydralazine HCl (Hydralazine Hcl 25 Mg Tab) 25 mg PO BID [facility] Last Admin: 05/31/22 08:53 Dose: 25 mg Piperacillin Sod/Tazobactam (Sod 3.375 gm/ Sodium Chloride) 100 mls @ 25 mls/hr IVPB Q8HR [facility]; Protocol Last Admin: 05/31/22 08:53 Dose: 25 mls/hr Isosorbide Mononitrate (Isosorbide Mononitrate Er 30 Mg Tab.Er.24h) 30 mg PO DAILY [facility] Last Admin: 05/31/22 08:53 Dose: 30 mg Magnesium Hydroxide (Magnesium Hydroxide 2,400 Mg/10 Ml Cup) 2,400 mg PO DAILY PRN PRN Reason: Constipation Last Admin: 05/31/22 08:53 Dose: 2,400 mg Methotrexate (Methotrexate Sodium 2.5 Mg Tab) 20 mg PO SAMANIEGO@1400 [facility] Last Admin: 05/26/22 15:08 Dose: Not Given Mirtazapine (Mirtazapine 15 Mg Tab) 7.5 mg PO [facility] Last Admin: 05/30/22 20:42 Dose: 7.5 mg Multivitamins (Multivitamins, Thera 1 Each Tab) 1 each PO DAILY [facility] Last Admin: 05/31/22 08:53 Dose: 1 each Naloxone HCl (Naloxone 0.4 Mg/Ml 1 Ml Vial) 0.2 mg IV Q2M PRN PRN Reason: Opioid Reversal Ondansetron HCl (Ondansetron 4 Mg/2 Ml Vial) 4 mg IVP Q8HR PRN PRN Reason: Nausea And Vomiting Potassium Chloride (Potassium Chloride Er 20 Meq Tab.Er) 20 meq PO DAILY [facility] Last Admin: 05/31/22 08:53 Dose: 20 meq PHYSICAL EXAMINATION: GENERAL: The patient is alert and oriented x2, with occasional confusion and lethargic, more awake today. Well developed, well nourished. HEENT: Pupils are round and equally reacting to light. EOMI. no scleral icterus. No conjunctival pallor. Normocephalic, atraumatic. No pharyngeal erythema. No thyromegaly. CARDIOVASCULAR: S1 and S2 muffled PULMONARY: diminished breath sounds bilaterally with no wheezing or rhonchi noted. ABDOMEN: soft. Nontender on exam. obese. non-distended, normoactive bowel sounds. No palpable organomegaly. MUSCULOSKELETAL: No joint swelling or deformity. EXTREMITIES: No cyanosis, clubbing, or pedal edema. Left lower extremity elevated on some pillows currently with a temporary splint NEUROLOGICAL: Gross neurological examination did not reveal any focal deficits. Diffuse weakness SKIN: No rashes. Assessment: Status post left ankle fracture Change in mental status, possibly secondary to metabolic toxic encephalopathy due to aspiration pneumonia Possible acute urinary tract infection Fluid overload Hypertension Dementia abnormal MRI scan GI prophylaxis DVT prophylaxis Full code Plan: Recommend to continue with current medications and management with multiple medical consultations following. Patient does have a left ankle fracture and no plan for surgical intervention per daughter at the bedside along with orthopedics and plan is for casting today by hatch supervisor of the left ankle Patient was started on IV Zosyn and will continue and mentation is much improved although continues to have intermittent periods of lucency and confusion and lethargic. Daughter at the bedside reports this is been ongoing over the last few days and progressively getting worse. Psychiatry consulted for her anxiety and depression and appreciate input and recommendations. Recommend follow-up labs and will continue to monitor closely. Recommend PT/OT therapy evaluation once casted with orthopedic recommendations on limitations and will discuss with case management/social work about possible ECF for continued strength and mobility. Commend daily PT therapy Recommend continue with pain management conservatively and avoid sedatives and strong narcotics if possible. Will resume Lyrica as her scheduled dose. Due to multiple complex medical issues, overall prognosis is extremely guarded. The impression and plan of care has been dictated by Anitha Gillespie nurse pr actitioner as directed. Dr. Ray MD I have performed a history and examination and MDM of this patient, discussed the same with the dictator, and agree with the dictator's assessment and plan as written ,documented as a scribe. Based on total visit time, I have performed more than 50% of the visit. Any additional findings or plans will be noted. Objective - Vital Signs Vital signs: Vital Signs Temp 98.2 F 05/31/22 11:18 Pulse 61 05/31/22 11:18 Resp 16 05/31/22 11:18 BP 148/66 05/31/22 11:18 Pulse Ox 99 05/31/22 11:18 FiO2 Intake & Output 05/30/22 05/31/22 05/31/22 18:59 06:59 18:59 Intake Total 118 240 Output Total 1300 1000 0 Balance -1182 -1000 240 Weight 61.5 kg Intake: Oral 118 240 Output: Urine 1300 1000 Stool 0 0 0 Other: Voiding Method External Catheter External Catheter External Catheter # Bowel Movements 2 - Labs CBC & Chem 7: 05/31/22 08:04 05/31/22 08:04 Labs: Abnormal Lab Results - Last 24 Hours (Table) 05/31/22 05/31/22 05/31/22 Range/Units 08:04 08:04 08:04 RBC 3.26 L (3.80-5.40) m/uL Hgb 9.8 L (11.4-16.0) gm/dL Hct 29.8 L (34.0-46.0) % RDW 16.4 H (11.5-15.5) % BUN 27 H (7-17) mg/dL Creatinine 1.29 H (0.52-1.04) mg/dL Glucose 101 H (74-99) mg/dL Avyq-1-Qgokzmqzxtyco 4.80 H (0.61-2.37) mg/L IgA 404.0 H (60.0-350.0) mg/dL Microbiology - Last 24 Hours (Table) 05/27/22 14:39 Blood Culture - Preliminary Blood No Growth after 72 hours
[2022-05-31] MEDS: MIRTAZAPINE 15 MG TAB PO SCH (20:13)
[2022-05-31] MEDS: PREGABALIN 100 MG CAP PO SCH (20:13)
[2022-05-31] MEDS: ASPIRIN 81 MG PO SCH (20:13)
[2022-05-31] MEDS: ACETAMINOPHEN TAB 325 MG TAB PO PRN (21:15)
[2022-06-01] MEDS: IPRATROPIUM-ALBUTEROL 3 ML NEB INHALATION SCH ×3 (08:13→20:30)
[2022-06-01] MEDS: guaiFENesin 600 MG TABLET.ER PO SCH ×2 (09:07→20:07)
[2022-06-01] MEDS: MULTIVITAMINS, THERA 1 EACH TAB PO SCH (09:07)
[2022-06-01] MEDS: FOLIC ACID 1 MG TAB PO SCH (09:07)
[2022-06-01] MEDS: amLODIPine 10 MG TAB PO SCH ×2 (09:07→20:07)
[2022-06-01] MEDS: PREGABALIN 100 MG CAP PO SCH ×2 (09:07→20:07)
[2022-06-01] MEDS: FUROSEMIDE 40 MG TAB PO SCH (09:07)
[2022-06-01] MEDS: PIPERACILLIN-TAZOBACTAM 3.375 GM in SODIUM CHLORIDE 0.9% 100 ML IVPB SCH ×3 (09:07→22:50)
[2022-06-01] MEDS: ISOSORBIDE MONONITRATE ER 30 MG TAB.ER.24H PO SCH (09:07)
[2022-06-01] MEDS: POTASSIUM CHLORIDE ER 20 MEQ TAB.ER PO SCH (09:07)
[2022-06-01] MEDS: FAMOTIDINE 20 MG TAB PO SCH (09:07)
[2022-06-01] MEDS: hydrALAZINE HCL 25 MG TAB PO SCH ×2 (09:07→20:07)
[2022-06-01] MEDS: HEPARIN SODIUM,PORCINE/PF 5,000 UNIT/0.5 ML SYRINGE SQ SCH ×2 (09:08→20:07)
[2022-06-01 10:40] LABS: Albumin 3.1 g/dL (3.5-5.0); Calcium 9.7 mg/dL (8.4-10.2); Potassium 4.5 mmol/L (3.5-5.1); Total Bilirubin 0.5 mg/dL (0.2-1.3); Total Protein 5.9 g/dL (6.3-8.2)
--- NOTE | 2022-06-01 13:42 | P.PN ---
Subjective Progress Note Date: 05/30/22 Principal diagnosis: Fever Patient is a 77 year female presented to the hospital after the patient did have a fall with resultant left ankle fracture treated conservative ly she did have a fever during this hospital stay that has prompted this infectious disease consultation. On today's evaluation that is 05/30/2022 patient is afebrile this morning, the patient is breathing comfortably , and the patient denies having any chest pain she did have occasional cough is mostly dry in nature, no nausea no vomiting no abdominal pain and no diarrhea Objective - Vital Signs Vital signs: Vital Signs Temp 97.9 F 05/30/22 12:00 Pulse 72 05/30/22 12:00 Resp 16 05/30/22 12:00 BP 125/78 05/30/22 12:00 Pulse Ox 96 05/30/22 12:00 FiO2 Intake & Output 05/29/22 05/30/22 05/30/22 18:59 06:59 18:59 Intake Total 640 118 Output Total 700 1400 1300 Balance -700 -760 -1182 Weight 61.5 kg Intake: Intake, IV Titration 100 Amount Piperacillin-Tazobactam 3 100 .375 gm In Sodium Chloride 0.9% 100 ml @ 25 mls/hr IVPB Q8HR [facility] Rx# :[id number] Oral 540 118 Output: Urine 700 1400 1300 Stool 0 0 Other: Voiding Method External Catheter External Catheter External Catheter - Exam GENERAL DESCRIPTION: An elderly female lying in bed in no distress RESPIRATORY SYSTEM: Unlabored breathing , decreased breath sounds at bases HEART: S1 S2 regular rate and rhythm , ABDOMEN: Soft , no tenderness EXTREMITIES: No edema feet - Labs CBC & Chem 7: 05/31/22 08:04 06/01/22 08:26 Labs: Abnormal Lab Results - Last 24 Hours (Table) 05/26/22 05/30/22 05/30/22 Range/Units 17:50 11:21 11:21 RBC 2.98 L (3.80-5.40) m/uL Hgb 9.0 L (11.4-16.0) gm/dL Hct 27.3 L (34.0-46.0) % RDW 16.5 H (11.5-15.5) % Sodium 136 L (137-145) mmol/L Carbon Dioxide 21 L (22-30) mmol/L BUN 34 H (7-17) mg/dL Creatinine 1.39 H (0.52-1.04) mg/dL Glucose 108 H (74-99) mg/dL Total Protein 5.3 L (6.3-8.2) g/dL Albumin 2.9 L (3.5-5.0) g/dL Albumin (PEP) 2.98 L (3.80-4.90) g/dL Kdtrc-8-Drzlxrzfa 0.44 H (0.10-0.40) g/dL Microbiology - Last 24 Hours (Table) 05/27/22 14:39 Blood Culture - Preliminary Blood No Growth after 48 hours Assessment and Plan (1) UTI (urinary tract infection) Current Visit: No Status: Acute Code(s): N39.0 - URINARY TRACT INFECTION, SITE NOT SPECIFIED SNOMED Code(s): 64705121 Plan: 1patient with low-grade fever during this hospital stay and this patient presented to hospital with left ankle fracture traumatic and has been treated conservatively patient did have a congested cough however chest x-ray completed yesterday did not show any acute cardiopulmonary disease urine was slightly p ositive however culture has been negative patient complaining of constipation with no bowel movement for the last 4 days question of abdominal source or fever related to her trauma. 2patient did have a CT of the chest and abdominal pelvis and no evidence of any acute abnormality 3patient fever has resolved and cultures so far negative, patient to continue with the Zosyn and monitor clinical course closely Time with Patient: Less than 30
--- NOTE | 2022-06-01 13:43 | P.PN ---
Subjective Progress Note Date: 05/31/22 Principal diagnosis: Fever Patient is a 77 year female presented to the hospital after the patient did have a fall with resultant left ankle fracture treated conservative ly she did have a fever during this hospital stay that has prompted this infectious disease consultation. On today's evaluation that is 05/31/2022 patient remains to be afebrile , the patient is breathing comfortably on a 2 L nasal cannula , and the patient denies having any chest pain she did have occasional cough is mostly dry in nature, the patient denies nausea no vomiting no abdominal pain and no diarrhea Objective - Vital Signs Vital signs: Vital Signs Temp 97.8 F 05/31/22 20:00 Pulse 76 05/31/22 20:34 Resp 20 05/31/22 20:00 BP 156/67 05/31/22 20:00 Pulse Ox 97 05/31/22 20:00 FiO2 Intake & Output 05/31/22 05/31/22 06/01/22 06:59 18:59 06:59 Intake Total 240 240 Output Total 1000 750 Balance -1000 -510 240 Intake: Oral 240 240 Output: Urine 1000 750 Stool 0 0 Other: Voiding Method External Catheter External Catheter External Catheter # Bowel Movements 2 3 - Exam GENERAL DESCRIPTION: An elderly female lying in bed in no distress RESPIRATORY SYSTEM: Unlabored breathing , decreased breath sounds at bases HEART: S1 S2 regular rate and rhythm , ABDOMEN: Soft , no tenderness EXTREMITIES: No edema feet - Labs CBC & Chem 7: 05/31/22 08:04 06/01/22 08:26 Labs: Abnormal Lab Results - Last 24 Hours (Table) 05/31/22 05/31/22 05/31/22 Range/Units 08:04 08:04 08:04 RBC 3.26 L (3.80-5.40) m/uL Hgb 9.8 L (11.4-16.0) gm/dL Hct 29.8 L (34.0-46.0) % RDW 16.4 H (11.5-15.5) % BUN 27 H (7-17) mg/dL Creatinine 1.29 H (0.52-1.04) mg/dL Glucose 101 H (74-99) mg/dL Isga-7-Mcdzlskxjdxqp 4.80 H (0.61-2.37) mg/L IgA 404.0 H (60.0-350.0) mg/dL Microbiology - Last 24 Hours (Table) 05/27/22 14:39 Blood Culture - Preliminary Blood No Growth after 96 hours Assessment and Plan (1) UTI (urinary tract infection) Current Visit: No Status: Acute Code(s): N39.0 - URINARY TRACT INFECTION, SITE NOT SPECIFIED SNOMED Code(s): 13621263 Plan: 1patient with low-grade fever during this hospital stay and this patient presented to hospital with left ankle fracture traumatic and has been treated conservatively patient did have a congested cough however chest x-ray completed yesterday did not show any acute cardiopulmonary disease urine was slightly positive however culture has been negative patient complaining of constipation with no bowel movement with question of abdominal source or fever related to her trauma. 2patient did have a CT of the chest and abdominal pelvis and no evidence of any acute abnormality 3patient fever has resolved and cultures so far negative, patient currently being treated with the Zosyn and continue supportive care Time with Patient: Less than 30
--- NOTE | 2022-06-01 13:44 | P.PN ---
Subjective Progress Note Date: 06/01/22 Principal diagnosis: Fever Patient is a 77 year female presented to the hospital after the patient did have a fall with resultant left ankle fracture treated conservative ly she did have a fever during this hospital stay that has prompted this infectious disease consultation. On today's evaluation that is 06/01/2022 patient continues to be afebrile , the patient is breathing comfortably on a 2 L nasal cannula , and the patient denies having any chest pain patient did have occasional dry cough but denies any nausea and vomiting no abdominal pain and no diarrhea Objective - Vital Signs Vital signs: Vital Signs Temp 97.3 F L 06/01/22 03:58 Pulse 79 06/01/22 11:42 Resp 15 06/01/22 11:36 BP 132/52 06/01/22 11:36 Pulse Ox 97 06/01/22 11:36 FiO2 Intake & Output 05/31/22 06/01/22 06/01/22 18:59 06:59 18:59 Intake Total 240 240 Output Total 750 400 Balance -510 -160 Intake: Oral 240 240 Output: Urine 750 400 Stool 0 Other: Voiding Method External Catheter External Catheter External Catheter # Bowel Movements 3 1 - Exam GENERAL DESCRIPTION: An elderly female lying in bed in no distress RESPIRATORY SYSTEM: Unlabored breathing , decreased breath sounds at bases HEART: S1 S2 regular rate and rhythm , ABDOMEN: Soft , no tenderness EXTREMITIES: No edema feet - Labs CBC & Chem 7: 05/31/22 08:04 06/01/22 08:26 Labs: Abnormal Lab Results - Last 24 Hours (Table) 06/01/22 Range/Units 08:26 Chloride 111 H (98-107) mmol/L Carbon Dioxide 20 L (22-30) mmol/L BUN 23 H (7-17) mg/dL Creatinine 1.20 H (0.52-1.04) mg/dL AST 66 H (14-36) U/L Total Protein 5.9 L (6.3-8.2) g/dL Albumin 3.1 L (3.5-5.0) g/dL Microbiology - Last 24 Hours (Table) 05/27/22 14:39 Blood Culture - Preliminary Blood No Growth after 96 hours Assessment and Plan (1) UTI (urinary tract infection) Current Visit: No Status: Acute Code(s): N39.0 - URINARY TRACT INFECTION, SITE NOT SPECIFIED SNOMED Code(s): 57084544 Plan: 1patient with low-grade fever during this hospital stay and this patient presented to hospital with left ankle fracture traumatic and has been treated conservatively patient did have a congested cough however chest x-ray completed yesterday did not show any acute cardiopulmonary disease urine was slightly positive however culture has been negative patient complaining of constipation with no bowel movement with question of abdominal source or fever related to her trauma. 2patient did have a CT of the chest and abdominal pelvis and no evidence of any acute abnormality 3patient fever has resolved, the patient white count is normal and cultures so far negative, patient is currently covered with the Zosyn and may consider short course of oral antibiotics on discharge Time with Patient: Less than 30
--- NOTE | 2022-06-01 13:55 | P.PN ---
Subjective Progress Note Date: 06/01/22 Follow-up for acute kidney injury. Urine output of 1100 ML's in the last 24 hours Objective - Vital Signs Vital signs: Vital Signs Temp 97.3 F L 06/01/22 03:58 Pulse 79 06/01/22 11:42 Resp 15 06/01/22 11:36 BP 132/52 06/01/22 11:36 Pulse Ox 97 06/01/22 11:36 FiO2 Intake & Output 05/31/22 06/01/22 06/01/22 18:59 06:59 18:59 Intake Total 240 240 Output Total 750 400 Balance -510 -160 Intake: Oral 240 240 Output: Urine 750 400 Stool 0 Other: Voiding Method External Catheter External Catheter External Catheter # Bowel Movements 3 1 - Exam No acute distress S1-S2 heard Lungs clear Trace edema - Labs CBC & Chem 7: 05/31/22 08:04 06/01/22 08:26 Labs: Abnormal Lab Results - Last 24 Hours (Table) 06/01/22 Range/Units 08:26 Chloride 111 H (98-107) mmol/L Carbon Dioxide 20 L (22-30) mmol/L BUN 23 H (7-17) mg/dL Creatinine 1.20 H (0.52-1.04) mg/dL AST 66 H (14-36) U/L Total Protein 5.9 L (6.3-8.2) g/dL Albumin 3.1 L (3.5-5.0) g/dL Microbiology - Last 24 Hours (Table) 05/27/22 14:39 Blood Culture - Preliminary Blood No Growth after 96 hours Assessment and Plan Assessment: #1 acute kidney injury suspect hemodynamic ATN with variations in blood pressure. #2 CK D stage III suspect nephrosclerosis with a baseline creatinine of 1.1-1.2 MG per DL. #3 complicated UTI #4 metabolic encephalopathy improved. 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 Plan: #1 renal function improving. #2 hematology following. #3 avoid nephrotoxic agents.
[2022-06-01] MEDS: ASPIRIN 81 MG PO SCH (20:07)
[2022-06-01] MEDS: MIRTAZAPINE 15 MG TAB PO SCH (20:07)
[2022-06-02] MEDS: IPRATROPIUM-ALBUTEROL 3 ML NEB INHALATION SCH ×3 (07:58→21:06)
--- NOTE | 2022-06-02 08:13 | P.PN ---
Subjective Progress Note Date: 06/01/22 06/01/2022: Patient was seen for a follow-up. Patient appears slightly delirious today. Slightly inattentive. Patient states she feels stiff, hard to move. Denies any headache, no dizziness. Not been up yet. No new symptoms. 05/30/2022: Patient was seen for a follow-up. The nurse perfect served at 10:35 AM the patient is seeming to have worsening mentation today. Yesterday she was awake and alert and appropriate all day. Today she is lethargic, responds to painful stimuli, won't open her eyes. Alert to person only. Primary team wanted neurology to be aware. Shortly after at 11:47 AM the nurse informed that she is awake and appropriate now. I came to see the patient, she was fully alert and awake, almost as good as yesterday. Patient offers no complaints. Her was also present today. 05/29/2022: Patient was seen for a follow-up. Patient's was present today. Patient has remarkably improved. She is alert and oriented, back to baseline. Patient had a bone scan performed today. Patient denies any headache, no dizziness. 05/28/2022: Patient was seen for a follow-up. Patient is sitting in the recliner, appears encephalopathic. Patient's daughter was present. She states that she was doing very well yesterday and also this morning, but now she is sleepy, probably tired, worn out, as she had a lot of activity earlier today. No new worsening. Telemetry monitoring showing second-degree heart block, type II, heart rate in the 40s. 05/27/2022: Patient initially seen by Dr. Ruben Ames. Please refer to his note for details. Patient was seen for a follow-up. Patient's daughter was also present today. She states that patient was doing fine on 05/22/2022. On she became confused, not interactive appropriately. On Friday she was still the same. In the afternoon she was scheduled to have orthopedic surgery for her foot, when during preop evaluation, patient became unresponsive. Surgery was canceled. Her blood pressure was very high. She was confused. Per daughter, patient slept well on Friday. On Friday she was doing better, almost 90% back to baseline. She was alert and awake oriented, carrying on conversation. Friday, which is yesterday she started slipping down again. At around 2 PM she was "out of it". Stroke code was activated at 5:25 PM. Patient was picking at her blankets. She was talking nonsense and asking her to find out what time the pain is coming in. Last known well was 2 PM. NIH stroke scale was 4. No TPA recommended. EEG and MRI of the brain was ordered. Patient was considered not a candidate for TPA. She finally settled down at midnight. Patient at present is laying comfortably in the bed. Still appears delirious, sometimes playing with her hands. She is bringing her hand to her nose purposelessly. Per daughter, patient is still sleepy, fidgety at times, nodes off. She is receiving Saline 5 mg once a day. Objective - Vital Signs Vital signs: Vital Signs Temp 97.7 F 06/02/22 07:55 Pulse 58 L 06/02/22 07:59 Resp 15 06/02/22 07:55 BP 149/57 06/02/22 07:55 Pulse Ox 96 06/02/22 07:59 FiO2 Intake & Output 06/01/22 06/02/22 06/02/22 18:59 06:59 18:59 Intake Total 480 Output Total 200 750 Balance -200 -270 Intake: Oral 480 Output: Urine 200 750 Other: Voiding Method External Catheter External Catheter # Bowel Movements 1 1 - Exam Patient is fully alert and awake. Mentation is much clearer. Appears slightly more delirious today as compared to the previous exam. Patient knows it is May 2022 and that she is in [facility] in [place]. Speech and language functions are normal. Patient can name and repeat. Her pupils are round and reacting, visual dennison appears full. Extraocular muscles are intact. Facial sensation is normal. Face is symmetric. Hearing is mild to moderately decreased bilaterally to hand rub. Tongue protrudes the midline. Shoulder shrug normal. Muscle strength is normal in the arms distally and proximally. In the right lower limb, hip flexion 4+, ankle dorsiflexion 5. Left leg not checked because of being in the cast. No ataxia in the upper limbs. Sensations equal in the arms. Patient has peripheral edema. - Labs CBC & Chem 7: 05/31/22 08:04 06/01/22 08:26 Labs: Abnormal Lab Results - Last 24 Hours (Table) 06/01/22 Range/Units 08:26 Chloride 111 H (98-107) mmol/L Carbon Dioxide 20 L (22-30) mmol/L BUN 23 H (7-17) mg/dL Creatinine 1.20 H (0.52-1.04) mg/dL AST 66 H (14-36) U/L Total Protein 5.9 L (6.3-8.2) g/dL Albumin 3.1 L (3.5-5.0) g/dL Microbiology - Last 24 Hours (Table) 05/27/22 14:39 Blood Culture - Preliminary Blood No Growth after 120 hours Assessment and Plan Assessment: Fluctuating and altered mental status likely due delirium, possible underlying metabolic encephalopathy. Etiology multifactorial as mentioned below. Possible hypertensive encephalopathy and component underlying UTI and medication effect (Saline) Abnormal chest x-ray, with evidence of possible fluid overload versus pneumonit is. Fall and seem mechanical that resulted in left fibula and ankle/foot fracture Uncontrolled hypertension as during this hospital stay systolic in 200's. Probable underlying acute UTI History of coronary artery disease status post CABG History of lower back spinal fusion in 2018 Anemia, mild to moderate renal insufficiency, borderline hepatic functions. Mildly elevated cardiac enzymes. Monoclonal gammopathy. 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 Plan: Patient has delirium, patient's mentation is fluctuating. Her orientation, level of alertness has much improved. MRI of the brain revealed no evidence of a recent infarct. Mild to moderate diffuse cerebral atrophy and chronic small vessel ischemic change is redemonstrated. Enhancing left frontal calvarial lesion corresponds to lytic lesion on the CT. Differential includes metastatic disease versus possible myeloma deposit. Correlate clinically. Bone scan revealed abnormal uptake involving the calvarium. Appearance corresp onds to the abnormal CT finding. Malignancy in the differential diagnosis. Skeletal survey performed today again reveals single lucent lesion in the left frontal bone at the same location as above. Hematology oncology on board. Appreciate recommendations. Multiple options of treatment as per their plans. Reviewed notes. Continue aspirin 81 mg daily. 2-D echo revealed normal size and systolic function. Mild mitral aortic and tricuspid regurgitation. EF is normal 55-60%. CTA of brain is reported as "negative". There is approximate 50% stenosis at the origin of the left ICA. B12 is 429, folate > 20.0 Hemoglobin A1c 5.7 Cardiology on board for elevated cardiac enzymes. Patient on Zosyn for possible infection. EEG 05/27/2022 was abnormal due to background slowing of at least moderate degree. This is suggestive of generalized cerebral dysfunction as can be seen with toxic metabolic encephalopathy or due to diffuse structural brain abnormality. Clinical correlation is recommended. No epileptiform activity was seen. Orthopedic team is on board We'll defer the rest of the medical management to the primary team DVT prophylaxis: Patient on heparin subcu every 12 hours per Discussed with patient's in detail. Neurologically clear for transfer to rehab, pending clearance from other specialties. Neurology will sign off. Please reconsult neurology if any concerns.
[2022-06-02] MEDS: amLODIPine 10 MG TAB PO SCH ×2 (08:48→20:37)
[2022-06-02] MEDS: FUROSEMIDE 40 MG TAB PO SCH (08:48)
[2022-06-02] MEDS: hydrALAZINE HCL 25 MG TAB PO SCH ×2 (08:48→20:37)
[2022-06-02] MEDS: guaiFENesin 600 MG TABLET.ER PO SCH ×2 (08:48→20:37)
[2022-06-02] MEDS: PIPERACILLIN-TAZOBACTAM 3.375 GM in SODIUM CHLORIDE 0.9% 100 ML IVPB SCH ×3 (08:48→23:09)
[2022-06-02] MEDS: FOLIC ACID 1 MG TAB PO SCH (08:48)
[2022-06-02] MEDS: ISOSORBIDE MONONITRATE ER 30 MG TAB.ER.24H PO SCH (08:48)
[2022-06-02] MEDS: MULTIVITAMINS, THERA 1 EACH TAB PO SCH (08:48)
[2022-06-02] MEDS: PREGABALIN 100 MG CAP PO SCH ×2 (08:48→20:37)
[2022-06-02] MEDS: POTASSIUM CHLORIDE ER 20 MEQ TAB.ER PO SCH (08:48)
[2022-06-02] MEDS: FAMOTIDINE 20 MG TAB PO SCH (08:48)
[2022-06-02] MEDS: HEPARIN SODIUM,PORCINE/PF 5,000 UNIT/0.5 ML SYRINGE SQ SCH ×2 (08:49→20:38)
[2022-06-02] MEDS: ERGOCALCIFEROL 1,250 MCG (50,000 IU) CAPSULE PO SCH (09:00)
--- NOTE | 2022-06-02 10:55 | P.PN ---
Subjective Progress Note Date: 06/02/22 Follow-up for acute kidney injury. Urine output of 950 ML's in the last 24 hours Objective - Vital Signs Vital signs: Vital Signs Temp 97.7 F 06/02/22 07:55 Pulse 62 06/02/22 08:45 Resp 15 06/02/22 07:55 BP 149/57 06/02/22 07:55 Pulse Ox 96 06/02/22 07:59 FiO2 Intake & Output 06/01/22 06/02/22 06/02/22 18:59 06:59 18:59 Intake Total 480 Output Total 200 750 Balance -200 -270 Intake: Oral 480 Output: Urine 200 750 Other: Voiding Method External Catheter External Catheter External Catheter # Bowel Movements 1 1 - Exam No acute distress S1-S2 heard Lungs clear Trace edema - Labs CBC & Chem 7: 05/31/22 08:04 06/01/22 08:26 Labs: Microbiology - Last 24 Hours (Table) 05/27/22 14:39 Blood Culture - Preliminary Blood No Growth after 120 hours Assessment and Plan Assessment: #1 acute kidney injury suspect hemodynamic ATN with variations in blood pressure. #2 CK D stage III suspect nephrosclerosis with a baseline creatinine of 1.1-1.2 MG per DL. #3 complicated UTI #4 metabolic encephalopathy improved. 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 Plan: #1 renal function improving. #2 hematology following. #3 avoid nephrotoxic agents.
[2022-06-02] MEDS: metHOTREXate sodium 2.5 MG TAB PO SCH (15:39)
[2022-06-02] MEDS: MIRTAZAPINE 15 MG TAB PO SCH (20:37)
[2022-06-02] MEDS: ASPIRIN 81 MG PO SCH (20:37)
[2022-06-02] MEDS: ACETAMINOPHEN TAB 325 MG TAB PO PRN (20:38)
--- NOTE | 2022-06-02 20:56 | PN ---
PROGRESS NOTE This 77-year-old woman was admitted after left ankle fracture and multiple medical issues including possibly aspiration pneumonia. The patient is much more alert. No chest pain. No palpitations. No fever. PHYSICAL EXAMINATION: VITAL SIGNS: Pulse 52, blood pressure 128/49, respirations 18. HEENT: Conjunctivae normal. NECK: . CARDIOVASCULAR: S1, S2. RESPIRATION: Breath sounds diminished at the bases. A few scattered rhonchi. ABDOMEN: Soft. LEGS: Ankle fracture. NERVOUS SYSTEM: Diffusely weak. LABS: Reviewed. Creatinine 1.2. ASSESSMENT: 1. Status post left ankle fracture. 2. Change in mental status, possibly secondary to metabolic encephalopathy secondary to aspiration pneumonia. 3. UTI. 4. Fluid overload. 5. Multiple medical issues. RECOMMENDATION: This 77-year-old woman presented with multiple complex medical issues. We will monitor the patient closely. Otherwise, continue to monitor. PT/OT evaluation, possible ECF rehab. Guarded prognosis. MMODL / IJN: [id number] /
--- NOTE | 2022-06-03 05:20 | PN ---
PROGRESS NOTE SUBJECTIVE: This is a 77-year-old woman who was admitted after left ankle fracture, multiple medical history including metabolic encephalopathy, pneumonia, and UTI. The patient is feeling better. No chest pain. No palpitation. PHYSICAL EXAMINATION: VITAL SIGNS: Pulse is 57, blood pressure 180/69, respirations 18. CHEST: Clear to auscultation. CARDIOVASCULAR: S1, S2 muffled. ABDOMEN: Soft. NERVOUS SYSTEM: Diffusely weak. LABS: Reviewed. ASSESSMENT: 1. Status post left ankle fracture. 2. Change in mental status, possibly secondary to metabolic encephalopathy. 3. Acute urinary tract infection. 4. Fluid overload. 5. Multiple medical issues. RECOMMENDATIONS AND DISCUSSION: Recommend to continue current management and symptomatic treatment. Otherwise, at this time, I recommend close followup with primary physician, PT, OT evaluation. Further recommendations to follow. MMSTEPHONL / PRON: [id number] /
[2022-06-03] MEDS: cloNIDine 0.3 MG/24HR PATCH TRANSDERM SCH (06:05)
[2022-06-03 07:49] VITALS: RESP 17; TEMP 98.2
[2022-06-03] MEDS: IPRATROPIUM-ALBUTEROL 3 ML NEB INHALATION SCH ×2 (07:57→11:00)
[2022-06-03] MEDS: ISOSORBIDE MONONITRATE ER 30 MG TAB.ER.24H PO SCH (09:15)
[2022-06-03] MEDS: MULTIVITAMINS, THERA 1 EACH TAB PO SCH (09:15)
[2022-06-03] MEDS: guaiFENesin 600 MG TABLET.ER PO SCH (09:15)
[2022-06-03] MEDS: PREGABALIN 100 MG CAP PO SCH (09:15)
[2022-06-03] MEDS: FAMOTIDINE 20 MG TAB PO SCH (09:15)
[2022-06-03] MEDS: FOLIC ACID 1 MG TAB PO SCH (09:15)
[2022-06-03] MEDS: amLODIPine 10 MG TAB PO SCH (09:15)
[2022-06-03] MEDS: hydrALAZINE HCL 25 MG TAB PO SCH (09:15)
[2022-06-03] MEDS: FUROSEMIDE 40 MG TAB PO SCH (09:15)
[2022-06-03] MEDS: POTASSIUM CHLORIDE ER 20 MEQ TAB.ER PO SCH (09:15)
[2022-06-03] MEDS: PIPERACILLIN-TAZOBACTAM 3.375 GM in SODIUM CHLORIDE 0.9% 100 ML IVPB SCH ×2 (09:16→15:18)
[2022-06-03] MEDS: ACETAMINOPHEN TAB 325 MG TAB PO PRN (09:24)
[2022-06-03] MEDS: HEPARIN SODIUM,PORCINE/PF 5,000 UNIT/0.5 ML SYRINGE SQ SCH (09:24)
[2022-06-03] MEDS ORDERED: SODIUM BICARBONATE TAB 650 MG TAB PO SCH (10:45)
--- NOTE | 2022-06-03 10:45 | P.PN ---
Subjective Patient is seen in follow-up for acute kidney injury and chronic kidney disease. Renal function has been fairly stable with creatinine 1.2 as of 06/01/2022. Resting in bed. No vomiting or diarrhea. Oral intake here. Blood pressure stable. Nonoliguric. Vital signs are stable. General: Awake. No acute distress. HEENT: Head exam is unremarkable. LUNGS: Breath sounds decreased. HEART: Rate and Rhythm are regular. ABDOMEN: Soft, no distention. EXTREMITITES: No edema. Left lower extremity cast noted. Objective - Vital Signs Vital signs: Vital Signs Temp 98.2 F 06/03/22 07:48 Pulse 63 06/03/22 07:48 Resp 17 06/03/22 07:48 BP 146/65 06/03/22 07:48 Pulse Ox 96 06/03/22 07:48 FiO2 Intake & Output 06/02/22 06/03/22 06/03/22 18:59 06:59 18:59 Intake Total 240 118 Output Total 800 400 Balance -800 -160 118 Intake: Oral 240 118 Output: Urine 800 400 Other: Voiding Method External Catheter External Catheter External Catheter # Voids 1 # Bowel Movements 1 1 1 - Labs CBC & Chem 7: 05/31/22 08:04 06/01/22 08:26 Labs: Microbiology - Last 24 Hours (Table) 05/27/22 14:39 Blood Culture - Final Blood No Growth after 144 hours Assessment and Plan Plan: Assessment: 1. Mild acute kidney injury mostly prerenal secondary to hemodynamic instability. Creatinine 1.2 dated 06/01/2022. 2. Chronic kidney disease stage IIIa with baseline creatinine 1.1 1.2 secondary to nephrosclerosis. 3. Status post fall with left ankle fracture. 4. History of coronary artery disease status post CABG. 5. Metabolic acidosis secondary to chronic kidney disease. 6. Hypertension with chronic kidney disease. Stable. 7. Anemia of chronic kidney disease. Rule out iron deficiency. 8. 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 Oncology following. Plan: Encourage oral intake. Maintain oral Lasix. Avoid nephrotoxins. Check iron studies. Add oral bicarbonate. Follow up outpatient 1-2 weeks post discharge.
[2022-06-03 11:55] LABS: Calcium 9.6 mg/dL (8.4-10.2); Potassium 4.2 mmol/L (3.5-5.1)
--- NOTE | 2022-06-03 15:01 | P.DS ---
Providers Date of admission: 05/24/22 14:53 Expected date of discharge: 06/03/22 Attending physician: Abhijit Bell Consults: 05/23/22 09:18 Consult Physician Urgent Consulting Provider: Leon Del Castillo Consult Reason/Comments: Fibular fracture Do you want consulting provider notified?: Yes 05/24/22 16:38 Consult Physician Urgent Consulting Provider: Ruben Ames Consult Reason/Comments: Confusion Do you want consulting provider notified?: Yes 05/26/22 19:05 Consult Physician Urgent Consulting Provider: Martin Ledesma Consult Reason/Comments: Elevated Trops Do you want consulting provider notified?: Yes 05/27/22 12:42 Consult Physician Routine Consulting Provider: Jeromy Santos Consult Reason/Comments: fever Do you want consulting provider notified?: Yes 05/27/22 17:07 Consult Physician Routine Consulting Provider: Dorcas Rodriguez Consult Reason/Comments: elevate creatinine Do you want consulting provider notified?: Yes 05/27/22 17:08 Consult Physician Routine Consulting Provider: Tanmay Diggs Consult Reason/Comments: possible mets vs myeloma Do you want consulting provider notified?: Yes 05/30/22 11:51 Consult Physician Urgent Consulting Provider: Ren Ford Consult Reason/Comments: anxiety, depression, medication adjustments Do you want consulting provider notified?: Yes Primary care physician: Romario Russ [facility] Course: Final diagnosis Status post left ankle fracture Change in mental status, possibly secondary to metabolic encephalopathy due to aspiration pneumonia acute urinary tract infection, present on admission Fluid overload Hypertension Dementia abnormal MRI scan GI prophylaxis DVT prophylaxis Full code Discharge disposition Patient is being discharged in a stable condition with guarded prognosis to [facility]. Patient will follow-up with Dr. Chiu in the outpatient setting upon discharge. Patient is to all up with nephrology along with orthopedics as scheduled. Patient will follow-up with oncology to discuss further treatment options once discharged from [facility]. Total time taken is greater than 35 minutes. Hospital course This is a 77-year-old female who was recently admitted with a left ankle fracture also some acute altered mental status with questionable pneumonia and was being treated for an acute urinary tract infection. Multiple medical consultations following and patient was maintained on IV antibiotics and has completed a course of Zosyn and will not require antibiotics on discharge. Patient is seen and evaluated this morning awake and alert. Patient was also evaluated by oncology and will not be receiving treatment during rehab as patient and family would like to gain strength and mobility prior to discharge and will follow-up in the outpatient setting once discharged from [facility] with oncology along with primary care provider. Patient was seen and evaluated by Art Clements dimensional inspector and had casting done for left ankle fracture as family did not feel patient was appropriate for any surgical interventions at this time. Patient will follow-up with orthopedics outpatient in 2-3 weeks. Currently no reports of chest pain, shortness of breath, or palpitations. Patient is afebrile. No reports of nausea or vomiting and patient is tolerating diet. Patient will be going to [facility] on the [place] today. Guarded prognosis. Physical exam: Gen: This is a 77-year-old female awake, alert and oriented 2-3. Well- developed, well-nourished. HEENT: Head is atraumatic, normocephalic. Pupils equal, round. Sclerae is anicteric. NECK: Supple. No JVD. No lymphadenopathy. No thyromegaly. LUNGS: Clear to auscultation. No wheezes or rhonchi. No intercostal retractions. HEART: Regular rate and rhythm. No murmur. ABDOMEN: Soft. Bowel sounds are present. No masses. No tenderness. EXTREMITIES: No pedal edema. No calf tenderness. NEUROLOGICAL: Patient is awake, alert and oriented x3. Cranial nerves 2 through 12 are grossly intact. Diffusely weak Please refer to medication reconciliation sheet for a list of medications. The impression and plan of care has been dictated by Anitha Gillespie, Nurse Practitioner as directed. Dr. Lorri MD I have performed a history and examination and MDM of this patient, discussed the same with the dictator, and agree with the dictator's assessment and plan as written ,documented as a scribe. Based on total visit time, I have performed more than 50% of the visit. Patient Condition at Discharge: Stable Plan - Discharge Summary Discharge Rx Participant: No New Discharge Prescriptions: New hydrALAZINE HCL [Apresoline] 25 mg PO BID tab cloNIDine 0.3 MG/24HR PATCH [Catapres-TTS] 1 patch TRANSDERM Q7D patch Docusate [Colace] 100 mg PO BID PRN cap PRN Reason: Constipation Ipratropium-Albuterol Nebulize [Duoneb 0.5 mg-3 mg/3 ml Soln] 3 ml INHALATION RT-TID PRN each PRN Reason: Shortness Of Breath Or Wheezing Sodium Bicarbonate Tab 650 mg PO BID tab Ipratropium-Albuterol Nebulize [Duoneb 0.5 mg-3 mg/3 ml Soln] 3 ml INHALATION RT-TID each Heparin Sodium,Porcine [Heparin Sodium] 5,000 unit SQ Q12HR 30 Days #60 each Furosemide [Lasix] 40 mg PO DAILY tab Magnesium Hydroxide [Milk of Magnesia Concentrate] 2,400 mg PO DAILY PRN ml PRN Reason: Constipation amLODIPine [Norvasc] 10 mg PO DAILY tab Acetaminophen Tab [Tylenol] 650 mg PO Q6HR PRN tab PRN Reason: Fever and/ or Mild Pain Continue Isosorbide Mononitrate ER [Imdur] 30 mg PO DAILY Multivitamins, Thera [Multivitamin (formulary)] 1 tab PO DAILY Potassium Chloride [Klor-Con 20] 20 meq PO DAILY metHOTREXate sodium [Methotrexate] 20 mg PO SAMANIEGO@1400 Folic Acid 1 mg PO DAILY Aspirin [Children's Aspirin] 81 mg PO HS Pregabalin [Lyrica] 100 mg PO BID@1400,2100 #4 cap Ergocalciferol [Vitamin D2 (1250 Mcg = 71681 Iu)] 1,250 mcg PO SAMANIEGO guaiFENesin [Mucinex] 1,200 mg PO Q12HR 4 Days tab Famotidine [Pepcid] 20 mg PO DAILY #0 tab Mirtazapine 7.5 mg PO HS Discontinued carvediloL [Coreg] 3.125 mg PO BID-W/MEALS tab Ipratropium-Albuterol Nebulize [Duoneb 0.5 mg-3 mg/3 ml Soln] 3 ml INHALATION RT-QID PRN each PRN Reason: Shortness Of Breath Or Wheezing Bumetanide [BUMEX] 0.5 mg PO DAILY Docusate [Colace] 100 mg PO DAILY Discharge Medication List Isosorbide Mononitrate ER [Imdur] 30 mg PO DAILY 04/06/15 [History] Multivitamins, Thera [Multivitamin (formulary)] 1 tab PO DAILY 06/14/16 [History] Potassium Chloride [Klor-Con 20] 20 meq PO DAILY 07/24/18 [History] Aspirin [Children's Aspirin] 81 mg PO HS 01/21/19 [History] Folic Acid 1 mg PO DAILY 01/21/19 [History] metHOTREXate sodium [Methotrexate] 20 mg PO SAMANIEGO@1400 01/21/19 [History] Ergocalciferol [Vitamin D2 (1250 Mcg = 64599 Iu)] 1,250 mcg PO SAMANIEGO 05/24/21 [History] Famotidine [Pepcid] 20 mg PO DAILY #0 tab 04/19/22 [Rx] guaiFENesin [Mucinex] 1,200 mg PO Q12HR 4 Days tab 04/19/22 [Rx] Mirtazapine 7.5 mg PO HS 05/23/22 [History] Acetaminophen Tab [Tylenol] 650 mg PO Q6HR PRN tab 06/03/22 [Rx] Docusate [Colace] 100 mg PO BID PRN cap 06/03/22 [Rx] Furosemide [Lasix] 40 mg PO DAILY tab 06/03/22 [Rx] Heparin Sodium,Porcine [Heparin Sodium] 5,000 unit SQ Q12HR 30 Days #60 each 06/03/22 [Rx] Ipratropium-Albuterol Nebulize [Duoneb 0.5 mg-3 mg/3 ml Soln] 3 ml INHALATION RT-TID each 06/03/22 [Rx] Ipratropium-Albuterol Nebulize [Duoneb 0.5 mg-3 mg/3 ml Soln] 3 ml INHALATION RT-TID PRN each 06/03/22 [Rx] Magnesium Hydroxide [Milk of Magnesia Concentrate] 2,400 mg PO DAILY PRN ml 06/03/22 [Rx] Pregabalin [Lyrica] 100 mg PO BID@1400,2100 #4 cap 06/03/22 [Rx] Sodium Bicarbonate Tab 650 mg PO BID tab 06/03/22 [Rx] amLODIPine [Norvasc] 10 mg PO DAILY tab 06/03/22 [Rx] cloNIDine 0.3 MG/24HR PATCH [Catapres-TTS] 1 patch TRANSDERM Q7D patch 06/03/22 [Rx] hydrALAZINE HCL [Apresoline] 25 mg PO BID tab 06/03/22 [Rx] Follow up Appointment(s)/Referral(s): Tanmay Diggs MD [STAFF PHYSICIAN] - 4 Weeks Art Clements DPM [Doctor of Osteopathic Medicine] - 4 Weeks Romario Russ DO [Primary Care Provider] - 1-2 days Ac High DO [STAFF PHYSICIAN] - 1 Week Ambulatory/Diagnostic Orders: Basic Metabolic Panel [LAB.AMB] Time Frame: 3 Days, Location: None Selected Activity/Diet/Wound Care/Special Instructions: Patient is going to [facility] on the [place] Activity as tolerated Recommend repeat BMP in 2-3 days Continue taking medications as scheduled Follow-up with orthopedics outpatient Follow-up with oncology once discharged from ECF Follow-up nephrology outpatient in 1-2 weeks Discharge Disposition: TRANSFER TO SNF/ECF
[2022-06-03 15:36] VITALS: BP 165/72; PULSE 72
[2022-06-03 18:13] LABS: % Iron Saturation 16.67 (12.00-45.00)
[2022-06-04] MEDS ORDERED: amLODIPine 10 MG TAB PO SCH (09:00)
--- NOTE | 2022-06-05 15:27 | CDI ---
Documentation Clarification Form Date: 06/05/2022 01:48:00 PM From: Natalia Todd Admit Date: 05/24/2022 02:53:00 PM Patient Name: Alyssa Roca Visit Number: [id number] Discharge Date: 06/03/2022 08:34:00 PM ATTENTION: The Clinical Documentation Specialists (CDI) and [facility] Coding Staff appreciate your assistance in clarifying documentation. Please respond to the clarification below the line at the bottom and electronically sign. The CDI & [facility] Coding staff will review the response and follow-up if needed. Please note: Queries are made part of the Legal Health Record. If you have any questions, please contact the author of this message via ITS. Dr. Abhijit Bell The patients principal diagnosis the diagnosis that was chiefly responsible for the admission - has not been clearly identified and clarification is requested. The patient presented with the distal fibula fx, following fall. PER ED notes "Patient was not admitted for distal fibular fracture. Case discussed with [place] hospitalist group with sepsis admission of the patient." Per psych consult "Mild sepsis with fever, with mild leukocytosis. Patient seen in ER 05/22 and admit order was 05/24 at 14:53. 05/25 PN AMS status multifactorial: " Predominately has hypertensive encephalopathy and component of UTI and medication effect [place]" History/Risk factors: UTI, fracture left fibula, multiple falls, demenita, anxiety Clinical Indicators: Lab findings: UTI, elevated troponins, Radiology findings: 05/28 pneumonia Vital Signs: 97.9, 52bpm, 15, 191/69, 93 RA Treatment: IV Zosyn completed course, evaluation by air pollution engineer and neurology In your professional opinion, can you please clarify which diagnosis, after study, was the reason chiefly responsible for the admission? [ ] Hypertensive encephalopathy [ ] Sepsis [ ] Distal fibular fracture [ ] UTI [ ] Metabolic encephalopathy [ x ] Encephalopathy due to medication effect ([place]) [ ] Other, please specify [ ] Unable to determine MTDD
== END 2022-06-03 20:34 | DRG 91 ==
LOC: EC 20:23 → 4SSUR 05-23 01:38 → OBSVTOIN 05-24 14:53 → 3SCARD 05-27 07:29
PROVIDERS: ADMIT Hospitalist; ATTEND Hospitalist
PROC: 05HB33Z Insertion of Infusion Device into Right Basilic Vein, Percutaneous Approach (ICD-10-PCS; principal; 2022-05-28 10:20)
DX: G92.8 Other toxic encephalopathy (principal); J69.0 Pneumonitis due to inhalation of food and vomit; I67.4 Hypertensive encephalopathy; E87.20 Acidosis, unspecified; F03.93 Unspecified dementia, unspecified severity, with mood disturbance; F03.94 Unspecified dementia, unspecified severity, with anxiety; I13.0 Hypertensive heart and chronic kidney disease with heart failure and stage 1 through stage 4 chronic kidney disease, or unspecified chronic kidney disease; N17.9 Acute kidney failure, unspecified; N39.0 Urinary tract infection, site not specified; T40.2X5A Adverse effect of other opioids, initial encounter; Z91.81 History of falling; I44.1 Atrioventricular block, second degree; I50.9 Heart failure, unspecified; K59.00 Constipation, unspecified; M06.9 Rheumatoid arthritis, unspecified; D47.2 Monoclonal gammopathy; D63.1 Anemia in chronic kidney disease; E78.5 Hyperlipidemia, unspecified; I25.10 Atherosclerotic heart disease of native coronary artery without angina pectoris; N18.31 Chronic kidney disease, stage 3a; I49.5 Sick sinus syndrome; M19.042 Primary osteoarthritis, left hand; M19.90 Unspecified osteoarthritis, unspecified site; M47.9 Spondylosis, unspecified; T39.1X5A Adverse effect of 4-Aminophenol derivatives, initial encounter; M19.041 Primary osteoarthritis, right hand; G47.00 Insomnia, unspecified; R26.9 Unspecified abnormalities of gait and mobility; R77.8 Other specified abnormalities of plasma proteins; R32 Unspecified urinary incontinence; Q79.9 Congenital malformation of musculoskeletal system, unspecified; R29.6 Repeated falls; S82.852A Displaced trimalleolar fracture of left lower leg, initial encounter for closed fracture; W01.0XXA Fall on same level from slipping, tripping and stumbling without subsequent striking against object, initial encounter; Y92.009 Unspecified place in unspecified non-institutional (private) residence as the place of occurrence of the external cause; Z53.9 Procedure and treatment not carried out, unspecified reason; Z79.82 Long term (current) use of aspirin; Z79.899 Other long term (current) drug therapy; Z87.891 Personal history of nicotine dependence; Z95.1 Presence of aortocoronary bypass graft; Z71.3 Dietary counseling and surveillance; Z88.0 Allergy status to penicillin; Z88.8 Allergy status to other drugs, medicaments and biological substances; Z87.440 Personal history of urinary (tract) infections
CPT/HCPCS: 36410; 36415; 70450; 70496; 70498; 70553; 71045; 71250; 74150; 74176; 76937; 77075; 78306; 80048; 80053; 81001; 82140; 82232; 82607; 82728; 82746; 82784; 83540; 83550; 83735; 83883; 84145; 84165; 84166; 84443; 84484; 85025; 85610; 85730; 86140; 86334; 87040; 87086; 93005; 93308; 94640; 94760; 95816; 99285

== ENCOUNTER 2022-06-14 10:24 | Emergency (ER) | payer MEDICARE, BC ==
[2022-06-14 10:29] VITALS: RESP 20; TEMP 98.2
[2022-06-14] MEDS ORDERED: SODIUM CHLORIDE 0.9% 1,000 ML IV STA (10:50)
[2022-06-14 11:28] LABS: Anisocytosis Slight; Basophils % (A) 1 %; Eosinophils # (A) 0.3 k/uL (0-0.7); Eosinophils % (A) 4 %; HCT 32.6 % (34.0-46.0); Hypochromasia Slight; Lymphocytes # (A) 1.3 k/uL (1.0-4.8); Lymphocytes % (A) 19 %; MCH 30.3 pg (25.0-35.0); MCHC 33.7 g/dL (31.0-37.0); Mean Platelet Volume 10.3; Monocytes # (A) 0.1 k/uL (0-1.0); Monocytes % (A) 2 %; Neutrophils # (A) 4.9 k/uL (1.3-7.7); Neutrophils % (A) 73 %; Platelet Count 156 k/uL (150-450); RBC 3.62 m/uL (3.80-5.40); RDW 17.3 % (11.5-15.5); WBC 6.7 k/uL (3.8-10.6)
[2022-06-14 11:53] LABS: Albumin 3.7 g/dL (3.5-5.0); Calcium 9.6 mg/dL (8.4-10.2); Magnesium 1.9 mg/dL (1.6-2.3); Prothrombin Time 10.5 sec (9.0-12.0); Total Bilirubin 0.8 mg/dL (0.2-1.3); Total Protein 6.7 g/dL (6.3-8.2)
[2022-06-14 11:54] LABS: Potassium 4.7 mmol/L (3.5-5.1)
[2022-06-14 11:59] LABS: Partial Thromboplastin Time 19.5 sec (22.0-30.0)
--- NOTE | 2022-06-14 12:02 | XR ---
EXAMINATION TYPE: XR chest 2V DATE OF EXAM: 06/14/2022 11:51 AM COMPARISON: Chest radiographs from 05/27/2022 TECHNIQUE: XR chest 2V Frontal and lateral views of the chest. CLINICAL INDICATION:Female, 77 years old with history of Weakness; FINDINGS: Lungs/Pleura: There is no evidence of pleural effusion, focal consolidation, or pneumothorax. Pulmonary vascularity: Unremarkable. Heart/mediastinum: Cardiomediastinal silhouette is prominent in size. Musculoskeletal: No acute osseous pathology. Midline sternotomy wires are noted. IMPRESSION: No acute cardiopulmonary disease/process.
[2022-06-14 13:37] LABS: Appearance,Urine Clear (Clear); Bilirubin,Urine Negative (Negative); Blood,Urine Negative (Negative); Budding Yeast,Urine Few /hpf; Color,Urine Light Yellow; Glucose,Urine (UA) Negative (Negative); Hyaline Casts,Urine 1 /lpf (0-2); Ketones,Urine Negative (Negative); Leukocyte Esterase,Urine Small (Negative); Nitrite,Urine Negative (Negative); PH, Urine 6.5 (5.0-8.0); Protein,Urine Negative (Negative); RBC,Urine <1 /hpf (0-5); Specific Gravity,Urine 1.009 (1.001-1.035); Urobilinogen,Urine <2.0 mg/dL (<2.0); WBC,Urine 4 /hpf (0-5)
[2022-06-14] MEDS ORDERED: FLUCONAZOLE 150 MG TAB PO STA (13:38)
--- NOTE | 2022-06-14 14:09 | ED ---
Weakness HPI - General Chief complaint: Weakness Stated complaint: weakness Time Seen by Provider: 06/14/22 10:30 Source: patient Mode of arrival: EMS Limitations: no limitations - History of Present Illness Initial comments: Patient is a 77-year-old female past medical history of coronary artery disease, myocardial infarction in 2007 s/p CABG. hyperlipidemia, hypertension, Mobitz type I block, UTI, and recent left fibular fracture who presents to the emergency department for evaluation of weakness. According to EMS patient's fpc sent her to the emergency department due to concern for increased weakness on left side. Patient denies weakness. States she cannot use her left leg due to fracture which caused her to lean the left when trying to get off of the toilet today. She denies fever, chills, upper respiratory symptoms, speech changes, chest pain, shortness of breath, abdominal pain, nausea, vomiting, diarrhea, burning with urination, vaginal discharge. - Related Data Home Medications Medication Instructions Recorded Confirmed Isosorbide Mononitrate ER [Imdur] 30 mg PO DAILY 04/06/15 05/23/22 Multivitamins, Thera [Multivitamin 1 tab PO DAILY 06/14/16 05/23/22 (formulary)] Potassium Chloride [Klor-Con 20] 20 meq PO DAILY 07/24/18 05/23/22 Aspirin [Children's Aspirin] 81 mg PO HS 01/21/19 05/23/22 Folic Acid 1 mg PO DAILY 01/21/19 05/23/22 metHOTREXate sodium [Methotrexate] 20 mg PO SAMANIEGO@1400 01/21/19 05/23/22 Ergocalciferol [Vitamin D2 (1250 1,250 mcg PO SAMANIEGO 05/24/21 05/23/22 Mcg = 24736 Iu)] Mirtazapine 7.5 mg PO HS 05/23/22 05/23/22 Previous Rx's Medication Instructions Recorded Famotidine [Pepcid] 20 mg PO DAILY #0 tab 04/19/22 guaiFENesin [Mucinex] 1,200 mg PO Q12HR 4 Days tab 04/19/22 Acetaminophen Tab [Tylenol] 650 mg PO Q6HR PRN tab 06/03/22 Docusate [Colace] 100 mg PO BID PRN cap 06/03/22 Furosemide [Lasix] 40 mg PO DAILY tab 06/03/22 Heparin Sodium,Porcine [Heparin 5,000 unit SQ Q12HR 30 Days #60 06/03/22 Sodium] each Ipratropium-Albuterol Nebulize 3 ml INHALATION RT-TID each 06/03/22 [Duoneb 0.5 mg-3 mg/3 ml Soln] Ipratropium-Albuterol Nebulize 3 ml INHALATION RT-TID PRN each 06/03/22 [Duoneb 0.5 mg-3 mg/3 ml Soln] Magnesium Hydroxide [Milk of 2,400 mg PO DAILY PRN ml 06/03/22 Magnesia Concentrate] Pregabalin [Lyrica] 100 mg PO BID@1400,2100 #4 cap 06/03/22 Sodium Bicarbonate Tab 650 mg PO BID tab 06/03/22 amLODIPine [Norvasc] 10 mg PO DAILY tab 06/03/22 cloNIDine 0.3 MG/24HR PATCH 1 patch TRANSDERM Q7D patch 06/03/22 [Catapres-TTS] hydrALAZINE HCL [Apresoline] 25 mg PO BID tab 06/03/22 Fluconazole [Diflucan] 150 mg PO ONCE #1 tab 06/14/22 Allergies Allergy/AdvReac Type Severity Reaction Status Date / Time alprazolam [From Xanax] Allergy Unknown Verified 05/23/22 09:38 amlodipine [From Norvasc] Allergy Unknown Verified 05/23/22 09:38 diazepam [From Valium] Allergy hard time Verified 05/23/22 09:38 coming out of anesthesia amoxicillin trihydrate AdvReac Severe Nausea & Verified 05/23/22 09:38 [From Augmentin] Vomiting & Diarrhea potassium clavulanate AdvReac Severe Nausea & Verified 05/23/22 09:38 [From Augmentin] Vomiting & Diarrhea sulfamethoxazole AdvReac Severe affected Verified 05/23/22 09:38 [From Bactrim] muscles - couldn't move trimethoprim [From Bactrim] AdvReac Severe affected Verified 05/23/22 09:38 muscles - couldn't move Fsfdfct-HQD-BzC Reductase AdvReac leg cramps Verified 05/23/22 09:38 Inhibitor [Ijbcqxc-Vxy-Vky Reductase Inhibitor] Sulfa (Sulfonamide AdvReac Unknown Verified 05/23/22 09:38 Antibiotics) Review of Systems ROS Statement: Those systems with pertinent positive or pertinent negative responses have been documented in the HPI. ROS Other: All systems not noted in ROS Statement are negative. 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 CATARACTS RONY. carpal tunnelWITH LENS IMPLANT 2007, lower back spinal fusion 2017, left knee surgery 2018., Past Anesthesia/Blood Transfusion Reactions: Postoperative Nausea & Vomiting (PONV) Additional Past Anesthesia/Blood Transfusion Reaction / Comment(s): PONV and hard to wake up Past Psychological History: Anxiety, Depression Smoking Status: Former smoker Past Alcohol Use History: None Reported Past Drug Use History: None Reported - Past Family History Brother(s) Additional Family Medical History / Comment(s): Shunt has 1 brother and 1 sister but she does not have any contact with them. Patient has 3 children that are all healthy. Mother Family Medical History: Cancer Additional Family Medical History / Comment(s): . Father Family Medical History: Cancer Additional Family Medical History / Comment(s): . General Exam Limitations: no limitations General appearance: alert, in no apparent distress Head exam: Present: atraumatic, normocephalic, normal inspection Eye exam: Present: normal appearance, PERRL, EOMI. Absent: scleral icterus, co njunctival injection, periorbital swelling Respiratory exam: Present: normal lung sounds bilaterally. Absent: respiratory distress, wheezes, rales, rhonchi, stridor Cardiovascular Exam: Present: regular rate, normal rhythm, normal heart sounds. Absent: systolic murmur, diastolic murmur, rubs, gallop, clicks GI/Abdominal exam: Present: soft, normal bowel sounds. Absent: distended, tenderness, guarding, rebound, rigid Extremities exam: Present: normal inspection, full ROM, normal capillary refill. Absent: pedal edema, joint swelling Expanded Patient oriented to: Present: person, place, time Cranial nerves: EOM's Intact: Normal, Tongue Deviation: Normal, Nystagmus: Normal, Facial Sensation: Normal, Facial Palsy with Forehead Movement: Normal, Facial Palsy without Forehead Movement: Normal Cerebellar function: Finger to Nose: Normal, Heel to Paez: Abnormal Right (left cannot be performed due to fracture ) Upper motor neuron: Jj Neglect: Normal, Pronator Drift: Normal Sensory exam: Upper Extremity Light Touch: Normal, Lower Extremity Light Touch: Normal Motor strength exam: RUE: 5, LUE: 5, RLE: 5, LLE: 5 Eye Response: (4) open spontaneously Motor Response: (6) obeys commands Verbal Response: (5) oriented Psychiatric exam: Present: normal affect, normal mood Skin exam: Present: warm, dry, intact, normal color. Absent: rash Course Vital Signs 06/14/22 06/14/22 10:26 15:18 Temperature 98.2 F Pulse Rate 74 75 Respiratory 20 20 Rate Blood Pressure 137/73 128/78 O2 Sat by Pulse 95 97 Oximetry EKG Findings - EKG Comments: EKG Findings:: EKG taken at 10:32. Sinus bradycardia with first-degree AV block with frequent supraventricular premature complexes in a bigeminal pattern, no evidence of acute ischemia. Ventricular rate 54. NM interval 253. QRS duration 90. QTc 420 Medical Decision Making - Medical Decision Making This 77-year-old female presenting for evaluation of weakness. She is well-appearing. There is no facial asymmetry or changes in speech. No focal deficits. EKG shows sinus bradycardia with first-degree AV block with frequent supraventricular premature complexes, no evidence of acute ischemia. Laboratory studies obtained. There is no leukocytosis. Hemoglobin stable at 11.0, c onsistent with chronic anemia. There is mild acute kidney injury, creatinine at 1.28. Urinalysis shows small leukocyte esterase with few yeast. COVID-19 and influenza are not detected. Chest x-ray shows no acute cardiopulmonary process. Patient given fluid bolus. She was monitored closely in the emergency department and continued to have no concerns. Results discussed in detail with patient and her family. At this time there is no etiology for report of weakness. Patient treated for possible yeast infection. Patient looks well and will be discharged back to her facility. Dr. Clarke is my attending. - Lab Data Result diagrams: 06/14/22 11:18 06/14/22 11:18 Lab Results 06/14/22 06/14/22 06/14/22 Range/Units 11:18 11:18 11:18 WBC 6.7 (3.8-10.6) k/uL RBC 3.62 L (3.80-5.40) m/uL Hgb 11.0 L (11.4-16.0) gm/dL Hct 32.6 L (34.0-46.0) % MCV 90.0 (80.0-100.0) fL MCH 30.3 (25.0-35.0) pg MCHC 33.7 (31.0-37.0) g/dL RDW 17.3 H (11.5-15.5) % Plt Count 156 (150-450) k/uL MPV 10.3 Neutrophils % 73 % Lymphocytes % 19 % Monocytes % 2 % Eosinophils % 4 % Basophils % 1 % Neutrophils # 4.9 (1.3-7.7) k/uL Lymphocytes # 1.3 (1.0-4.8) k/uL Monocytes # 0.1 (0-1.0) k/uL Eosinophils # 0.3 (0-0.7) k/uL Basophils # 0.0 (0-0.2) k/uL Hypochromasia Slight Anisocytosis Slight PT 10.5 (9.0-12.0) sec INR 1.0 (<1.2) APTT 19.5 L (22.0-30.0) sec Sodium 137 (137-145) mmol/L Potassium 4.7 (3.5-5.1) mmol/L Chloride 105 (98-107) mmol/L Carbon Dioxide 23 (22-30) mmol/L Anion Gap 9 mmol/L BUN 27 H (7-17) mg/dL Creatinine 1.28 H (0.52-1.04) mg/dL Est GFR (CKD-EPI)AfAm 47 (>60 ml/min/1.73 sqM) Est GFR (CKD-EPI)NonAf 41 (>60 ml/min/1.73 sqM) Glucose 108 H (74-99) mg/dL Plasma Lactic Acid See (0.7-2.0) mmol/L Calcium 9.6 (8.4-10.2) mg/dL Magnesium 1.9 (1.6-2.3) mg/dL Total Bilirubin 0.8 (0.2-1.3) mg/dL AST 73 H (14-36) U/L ALT 33 (4-34) U/L Alkaline Phosphatase 81 (38-126) U/L Troponin I (0.000-0.034) ng/mL NT-Pro-B Natriuret Pep pg/mL Total Protein 6.7 (6.3-8.2) g/dL Albumin 3.7 (3.5-5.0) g/dL Urine Color Urine Appearance (Clear) Urine pH (5.0-8.0) Ur Specific [place] (1.001-1.035) Urine Protein (Negative) Urine Glucose (UA) (Negative) Urine Ketones (Negative) Urine Blood (Negative) Urine Nitrite (Negative) Urine Bilirubin (Negative) Urine Urobilinogen (<2.0) mg/dL Ur Leukocyte Esterase (Negative) Urine RBC (0-5) /hpf Urine WBC (0-5) /hpf Hyaline Casts (0-2) /lpf Urine Yeast (Budding) (None) /hpf Coronavirus (PCR) (Not Detectd) Influenza Type A RNA (Not Detectd) Influenza Type B (PCR) (Not Detectd) 06/14/22 06/14/22 06/14/22 Range/Units 11:18 11:18 11:18 WBC (3.8-10.6) k/uL RBC (3.80-5.40) m/uL Hgb (11.4-16.0) gm/dL Hct (34.0-46.0) % MCV (80.0-100.0) fL MCH (25.0-35.0) pg MCHC (31.0-37.0) g/dL RDW (11.5-15.5) % Plt Count (150-450) k/uL MPV Neutrophils % % Lymphocytes % % Monocytes % % Eosinophils % % Basophils % % Neutrophils # (1.3-7.7) k/uL Lymphocytes # (1.0-4.8) k/uL Monocytes # (0-1.0) k/uL Eosinophils # (0-0.7) k/uL Basophils # (0-0.2) k/uL Hypochromasia Anisocytosis PT (9.0-12.0) sec INR (<1.2) APTT (22.0-30.0) sec Sodium (137-145) mmol/L Potassium (3.5-5.1) mmol/L Chloride (98-107) mmol/L Carbon Dioxide (22-30) mmol/L Anion Gap mmol/L BUN (7-17) mg/dL Creatinine (0.52-1.04) mg/dL Est GFR (CKD-EPI)AfAm (>60 ml/min/1.73 sqM) Est GFR (CKD-EPI)NonAf (>60 ml/min/1.73 sqM) Glucose (74-99) mg/dL Plasma Lactic Acid See 0.9 (0.7-2.0) mmol/L Calcium (8.4-10.2) mg/dL Magnesium (1.6-2.3) mg/dL Total Bilirubin (0.2-1.3) mg/dL AST (14-36) U/L ALT (4-34) U/L Alkaline Phosphatase (38-126) U/L Troponin I 0.025 (0.000-0.034) ng/mL NT-Pro-B Natriuret Pep pg/mL Total Protein (6.3-8.2) g/dL Albumin (3.5-5.0) g/dL Urine Color Urine Appearance (Clear) Urine pH (5.0-8.0) Ur Specific [place] (1.001-1.035) Urine Protein (Negative) Urine Glucose (UA) (Negative) Urine Ketones (Negative) Urine Blood (Negative) Urine Nitrite (Negative) Urine Bilirubin (Negative) Urine Urobilinogen (<2.0) mg/dL Ur Leukocyte Esterase (Negative) Urine RBC (0-5) /hpf Urine WBC (0-5) /hpf Hyaline Casts (0-2) /lpf Urine Yeast (Budding) (None) /hpf Coronavirus (PCR) (Not Detectd) Influenza Type A RNA Not Detected (Not Detectd) Influenza Type B (PCR) Not Detected (Not Detectd) 06/14/22 06/14/22 06/14/22 Range/Units 11:18 11:18 13:11 WBC (3.8-10.6) k/uL RBC (3.80-5.40) m/uL Hgb (11.4-16.0) gm/dL Hct (34.0-46.0) % MCV (80.0-100.0) fL MCH (25.0-35.0) pg MCHC (31.0-37.0) g/dL RDW (11.5-15.5) % Plt Count (150-450) k/uL MPV Neutrophils % % Lymphocytes % % Monocytes % % Eosinophils % % Basophils % % Neutrophils # (1.3-7.7) k/uL Lymphocytes # (1.0-4.8) k/uL Monocytes # (0-1.0) k/uL Eosinophils # (0-0.7) k/uL Basophils # (0-0.2) k/uL Hypochromasia Anisocytosis PT (9.0-12.0) sec INR (<1.2) APTT (22.0-30.0) sec Sodium (137-145) mmol/L Potassium (3.5-5.1) mmol/L Chloride (98-107) mmol/L Carbon Dioxide (22-30) mmol/L Anion Gap mmol/L BUN (7-17) mg/dL Creatinine (0.52-1.04) mg/dL Est GFR (CKD-EPI)AfAm (>60 ml/min/1.73 sqM) Est GFR (CKD-EPI)NonAf (>60 ml/min/1.73 sqM) Glucose (74-99) mg/dL Plasma Lactic Acid See (0.7-2.0) mmol/L Calcium (8.4-10.2) mg/dL Magnesium (1.6-2.3) mg/dL Total Bilirubin (0.2-1.3) mg/dL AST (14-36) U/L ALT (4-34) U/L Alkaline Phosphatase (38-126) U/L Troponin I (0.000-0.034) ng/mL NT-Pro-B Natriuret Pep 674 pg/mL Total Protein (6.3-8.2) g/dL Albumin (3.5-5.0) g/dL Urine Color Light Yellow Urine Appearance Clear (Clear) Urine pH 6.5 (5.0-8.0) Ur Specific [place] 1.009 (1.001-1.035) Urine Protein Negative (Negative) Urine Glucose (UA) Negative (Negative) Urine Ketones Negative (Negative) Urine Blood Negative (Negative) Urine Nitrite Negative (Negative) Urine Bilirubin Negative (Negative) Urine Urobilinogen <2.0 (<2.0) mg/dL Ur Leukocyte Esterase Small H (Negative) Urine RBC <1 (0-5) /hpf Urine WBC 4 (0-5) /hpf Hyaline Casts 1 (0-2) /lpf Urine Yeast (Budding) Few H (None) /hpf Coronavirus (PCR) Not Detected (Not Detectd) Influenza Type A RNA (Not Detectd) Influenza Type B (PCR) (Not Detectd) Disposition Clinical Impression: Weakness, Yeast infection Disposition: HOME SELF-CARE Condition: Good Instructions (If sedation given, give patient instructions): Yeast Infection (ED), Weakness (ED) Additional Instructions: All health records can be accessed via my chart online. Instructions are included on the discharge papers. Take repeat dose of Diflucan for yeast infection in 72 hours if symptoms persist. Follow-up with primary care provider in one to 2 days. Return to the emergency Department patient experiences new, concerning, or worsening symptoms. Prescriptions: Fluconazole [Diflucan] 150 mg PO ONCE #1 tab Is patient prescribed a controlled substance at d/c from ED?: No Referrals: Romario Russ DO [Primary Care Provider] - 1-2 days
[2022-06-14 15:20] VITALS: BP 128/78; PULSE 75
== END 2022-06-14 15:20 | disposition home or self-care (01) ==
LOC: EC 10:24
DX: R53.1 Weakness (principal); B37.9 Candidiasis, unspecified; I25.10 Atherosclerotic heart disease of native coronary artery without angina pectoris; E78.5 Hyperlipidemia, unspecified; I10 Essential (primary) hypertension; M19.90 Unspecified osteoarthritis, unspecified site; F32.A Depression, unspecified; F41.9 Anxiety disorder, unspecified; Z87.891 Personal history of nicotine dependence; Z79.82 Long term (current) use of aspirin; Z79.811 Long term (current) use of aromatase inhibitors; Z79.83 Long term (current) use of bisphosphonates; Z79.899 Other long term (current) drug therapy; Z88.8 Allergy status to other drugs, medicaments and biological substances; Z88.0 Allergy status to penicillin; Z88.1 Allergy status to other antibiotic agents; Z88.2 Allergy status to sulfonamides
CPT/HCPCS: 36415; 71046; 80053; 81001; 83605; 83735; 83880; 84484; 85025; 85610; 85730; 87502; 87635; 93005; 99285

== ENCOUNTER 2022-06-20 23:13 | Observation (INO) | payer MEDICARE, BC ==
[2022-06-20] MEDS ORDERED: DEXAMETHASONE SOD PHOSPHATE 10 MG/ML 1 ML VIAL IVP STA (23:19)
[2022-06-20] MEDS ORDERED: ALBUTEROL HFA INHALER INHALATION STA (23:19)
--- NOTE | 2022-06-20 23:21 | ED ---
Weakness HPI - General Stated complaint: Weakness Time Seen by Provider: 06/20/22 23:17 Source: RN notes reviewed, old records reviewed Mode of arrival: EMS Limitations: no limitations - History of Present Illness Initial comments: This is a 77-year-old female she presents today for evaluation of weakness fever sweating not feeling well. Patient has a sore throat fatigue comes from [facility] care facility for rehab over hip, there is an outbreak of coronavirus Complaint: generalized weakness, lack of energy, difficulty walking -: hour(s) Location: generalized Severity: moderate Severity scale (1-10): 4 Quality: numbness Consistency: intermittent Improves with: none Worsens with: none Context: recent illness, recent surgery Associated Symptoms: confusion, fever/chills, loss of appetite, myalgias - Related Data Home Medications Medication Instructions Recorded Confirmed Isosorbide Mononitrate ER [Imdur] 30 mg PO DAILY 04/06/15 05/23/22 Multivitamins, Thera [Multivitamin 1 tab PO DAILY 06/14/16 05/23/22 (formulary)] Potassium Chloride [Klor-Con 20] 20 meq PO DAILY 07/24/18 05/23/22 Aspirin [Children's Aspirin] 81 mg PO HS 01/21/19 05/23/22 Folic Acid 1 mg PO DAILY 01/21/19 05/23/22 metHOTREXate sodium [Methotrexate] 20 mg PO SAMANIEGO@1400 01/21/19 05/23/22 Ergocalciferol [Vitamin D2 (1250 1,250 mcg PO SAMANIEGO 05/24/21 05/23/22 Mcg = 78061 Iu)] Mirtazapine 7.5 mg PO HS 05/23/22 05/23/22 Previous Rx's Medication Instructions Recorded Famotidine [Pepcid] 20 mg PO DAILY #0 tab 04/19/22 guaiFENesin [Mucinex] 1,200 mg PO Q12HR 4 Days tab 04/19/22 Acetaminophen Tab [Tylenol] 650 mg PO Q6HR PRN tab 06/03/22 Docusate [Colace] 100 mg PO BID PRN cap 06/03/22 Furosemide [Lasix] 40 mg PO DAILY tab 06/03/22 Heparin Sodium,Porcine [Heparin 5,000 unit SQ Q12HR 30 Days #60 06/03/22 Sodium] each Ipratropium-Albuterol Nebulize 3 ml INHALATION RT-TID each 06/03/22 [Duoneb 0.5 mg-3 mg/3 ml Soln] Ipratropium-Albuterol Nebulize 3 ml INHALATION RT-TID PRN each 06/03/22 [Duoneb 0.5 mg-3 mg/3 ml Soln] Magnesium Hydroxide [Milk of 2,400 mg PO DAILY PRN ml 06/03/22 Magnesia Concentrate] Pregabalin [Lyrica] 100 mg PO BID@1400,2100 #4 cap 06/03/22 Sodium Bicarbonate Tab 650 mg PO BID tab 06/03/22 amLODIPine [Norvasc] 10 mg PO DAILY tab 06/03/22 cloNIDine 0.3 MG/24HR PATCH 1 patch TRANSDERM Q7D patch 06/03/22 [Catapres-TTS] hydrALAZINE HCL [Apresoline] 25 mg PO BID tab 06/03/22 Fluconazole [Diflucan] 150 mg PO ONCE #1 tab 06/14/22 Allergies Allergy/AdvReac Type Severity Reaction Status Date / Time alprazolam [From Xanax] Allergy Unknown Verified 05/23/22 09:38 amlodipine [From Norvasc] Allergy Unknown Verified 05/23/22 09:38 diazepam [From Valium] Allergy hard time Verified 05/23/22 09:38 coming out of anesthesia amoxicillin trihydrate AdvReac Severe Nausea & Verified 05/23/22 09:38 [From Augmentin] Vomiting & Diarrhea potassium clavulanate AdvReac Severe Nausea & Verified 05/23/22 09:38 [From Augmentin] Vomiting & Diarrhea sulfamethoxazole AdvReac Severe affected Verified 05/23/22 09:38 [From Bactrim] muscles - couldn't move trimethoprim [From Bactrim] AdvReac Severe affected Verified 05/23/22 09:38 muscles - couldn't move Gijwrqj-YWB-NeF Reductase AdvReac leg cramps Verified 05/23/22 09:38 Inhibitor [Oxgcruk-Jsw-Hkk Reductase Inhibitor] Sulfa (Sulfonamide AdvReac Unknown Verified 05/23/22 09:38 Antibiotics) Review of Systems ROS Statement: Those systems with pertinent positive or pertinent negative responses have been documented in the HPI. ROS Other: All systems not noted in ROS Statement are negative. 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 CATARACTS RONY. carpal tunnelWITH LENS IMPLANT 2007, lower back spinal fusion 2018, left knee surgery 2018., Past Anesthesia/Blood Transfusion Reactions: Postoperative Nausea & Vomiting (PO NV) Additional Past Anesthesia/Blood Transfusion Reaction / Comment(s): PONV and hard to wake up Past Psychological History: Anxiety, Depression Smoking Status: Former smoker Past Alcohol Use History: None Reported Past Drug Use History: None Reported - Past Family History Brother(s) Additional Family Medical History / Comment(s): Shunt has 1 brother and 1 sister but she does not have any contact with them. Patient has 3 children that are all healthy. Mother Family Medical History: Cancer Additional Family Medical History / Comment(s): . Father Family Medical History: Cancer Additional Family Medical History / Comment(s): . General Exam General appearance: alert, in no apparent distress Head exam: Present: atraumatic, normocephalic, normal inspection Eye exam: Present: normal appearance, PERRL, EOMI. Absent: scleral icterus, conjunctival injection, periorbital swelling ENT exam: Present: normal exam, mucous membranes moist Neck exam: Present: normal inspection. Absent: tenderness, meningismus, lymphadenopathy Respiratory exam: Present: normal lung sounds bilaterally. Absent: respiratory distress, wheezes, rales, rhonchi, stridor Cardiovascular Exam: Present: regular rate, normal rhythm, normal heart sounds. Absent: systolic murmur, diastolic murmur, rubs, gallop, clicks GI/Abdominal exam: Present: soft, normal bowel sounds. Absent: distended, tenderness, guarding, rebound, rigid Extremities exam: Present: normal inspection, full ROM, normal capillary refill. Absent: tenderness, pedal edema, joint swelling, calf tenderness Back exam: Present: normal inspection Neurological exam: Present: alert, oriented X3, CN II-XII intact Psychiatric exam: Present: normal affect, normal mood Skin exam: Present: warm, dry, intact, normal color. Absent: rash Course Vital Signs 06/20/22 23:21 Temperature 99.8 F H Pulse Rate 74 Respiratory 16 Rate Blood Pressure 194/161 O2 Sat by Pulse 94 L Oximetry - Reevaluation(s) Reevaluation #1: 06/21/22 02:02 Records reviewed Reevaluation #2: 06/21/22 02:02 Patient informed results and questions answered Reevaluation #3: 06/21/22 02:02 Patient has no true improvement in symptoms - Consultations Consultation #1: Spoke with admitting physicians will admit this patient EKG Findings - EKG Comments: EKG Findings:: EKG sinus 66 DE 220 QRS 86 QTc 361 Medical Decision Making - Medical Decision Making 77 female to the emergency department for evaluation of fever and covert. Patient is pending urinalysis. Postop surgery with rehabilitation. Laverne for resuscitation symptom control - Lab Data Result diagrams: 06/20/22 23:38 06/20/22 23:38 Lab Results 06/20/22 06/20/22 06/20/22 Range/Units 23:38 23:38 23:38 WBC 6.4 (3.8-10.6) k/uL RBC 3.57 L (3.80-5.40) m/uL Hgb 10.5 L (11.4-16.0) gm/dL Hct 31.4 L (34.0-46.0) % MCV 87.8 (80.0-100.0) fL MCH 29.5 (25.0-35.0) pg MCHC 33.6 (31.0-37.0) g/dL RDW 18.3 H (11.5-15.5) % Plt Count 87 L (150-450) k/uL MPV 11.1 Neutrophils % 76 % Lymphocytes % 19 % Monocytes % 1 % Eosinophils % 3 % Basophils % 0 % Neutrophils # 4.8 (1.3-7.7) k/uL Lymphocytes # 1.2 (1.0-4.8) k/uL Monocytes # 0.1 (0-1.0) k/uL Eosinophils # 0.2 (0-0.7) k/uL Basophils # 0.0 (0-0.2) k/uL Manual Slide Review Performed Anisocytosis Slight PT 10.6 (9.0-12.0) sec INR 1.0 (<1.2) APTT 26.3 (22.0-30.0) sec Sodium 138 (137-145) mmol/L Potassium 4.5 (3.5-5.1) mmol/L Chloride 106 (98-107) mmol/L Carbon Dioxide 24 (22-30) mmol/L Anion Gap 8 mmol/L BUN 24 H (7-17) mg/dL Creatinine 1.12 H (0.52-1.04) mg/dL Est GFR (CKD-EPI)AfAm 55 (>60 ml/min/1.73 sqM) Est GFR (CKD-EPI)NonAf 48 (>60 ml/min/1.73 sqM) Glucose 121 H (74-99) mg/dL Plasma Lactic Acid See (0.7-2.0) mmol/L Calcium 9.9 (8.4-10.2) mg/dL Magnesium 2.1 (1.6-2.3) mg/dL Total Bilirubin 0.7 (0.2-1.3) mg/dL AST 52 H (14-36) U/L ALT 42 H (4-34) U/L Alkaline Phosphatase 73 (38-126) U/L Lactate Dehydrogenase 720 H (313-618) U/L C-Reactive Protein 6.2 H (<1.0) mg/dL Total Protein 6.6 (6.3-8.2) g/dL Albumin 3.6 (3.5-5.0) g/dL 06/20/22 Range/Units 23:38 WBC (3.8-10.6) k/uL RBC (3.80-5.40) m/uL Hgb (11.4-16.0) gm/dL Hct (34.0-46.0) % MCV (80.0-100.0) fL MCH (25.0-35.0) pg MCHC (31.0-37.0) g/dL RDW (11.5-15.5) % Plt Count (150-450) k/uL MPV Neutrophils % % Lymphocytes % % Monocytes % % Eosinophils % % Basophils % % Neutrophils # (1.3-7.7) k/uL Lymphocytes # (1.0-4.8) k/uL Monocytes # (0-1.0) k/uL Eosinophils # (0-0.7) k/uL Basophils # (0-0.2) k/uL Manual Slide Review Anisocytosis PT (9.0-12.0) sec INR (<1.2) APTT (22.0-30.0) sec Sodium (137-145) mmol/L Potassium (3.5-5.1) mmol/L Chloride (98-107) mmol/L Carbon Dioxide (22-30) mmol/L Anion Gap mmol/L BUN (7-17) mg/dL Creatinine (0.52-1.04) mg/dL Est GFR (CKD-EPI)AfAm (>60 ml/min/1.73 sqM) Est GFR (CKD-EPI)NonAf (>60 ml/min/1.73 sqM) Glucose (74-99) mg/dL Plasma Lactic Acid See 0.9 (0.7-2.0) mmol/L Calcium (8.4-10.2) mg/dL Magnesium (1.6-2.3) mg/dL Total Bilirubin (0.2-1.3) mg/dL AST (14-36) U/L ALT (4-34) U/L Alkaline Phosphatase (38-126) U/L Lactate Dehydrogenase (313-618) U/L C-Reactive Protein (<1.0) mg/dL Total Protein (6.3-8.2) g/dL Albumin (3.5-5.0) g/dL - Radiology Data Radiology results: report reviewed (Chest x-rays negative for acute disease), image reviewed Disposition Clinical Impression: Weakness, Dehydration Disposition: ADMITTED IP TO THIS [facility] Condition: Fair Is patient prescribed a controlled substance at d/c from ED?: No Referrals: Romario Russ DO [Primary Care Provider] - 1-2 days Time of Disposition: 02:00
[2022-06-20 23:26] VITALS: TEMP 99.8
[2022-06-20] MEDS: SODIUM CHLORIDE 0.9% 1,000 ML IV STA (23:40)
[2022-06-21] MEDS: SODIUM CHLORIDE 0.9% 1,000 ML IV STA
[2022-06-21] MEDS ORDERED: IBUPROFEN IV 800 MG in SODIUM CHLORIDE 0.9% 250 ML IV ONE (00:15)
[2022-06-21 00:28] LABS: Albumin 3.6 g/dL (3.5-5.0); C Reactive Protein 6.2 mg/dL (<1.0); Calcium 9.9 mg/dL (8.4-10.2); Magnesium 2.1 mg/dL (1.6-2.3); Potassium 4.5 mmol/L (3.5-5.1); Total Bilirubin 0.7 mg/dL (0.2-1.3); Total Protein 6.6 g/dL (6.3-8.2)
--- NOTE | 2022-06-21 00:55 | XR ---
EXAMINATION TYPE: XR chest 1V portable DATE OF EXAM: 06/21/2022 COMPARISON: 06/14/2022 HISTORY: Pneumonia TECHNIQUE: Single view FINDINGS: There is no heart failure nor confluent pneumonic infiltrate. There are sternal wires. Cost ophrenic angles are clear. There are chest leads. IMPRESSION: No active cardiopulmonary disease. There is improvement in the pulmonary interstitial den sity compared to old exam.
[2022-06-21 00:58] LABS: Anisocytosis Slight; Basophils % (A) 0 %; Eosinophils # (A) 0.2 k/uL (0-0.7); Eosinophils % (A) 3 %; HCT 31.4 % (34.0-46.0); HGB 10.5 gm/dL (11.4-16.0); Lymphocytes # (A) 1.2 k/uL (1.0-4.8); Lymphocytes % (A) 19 %; MCH 29.5 pg (25.0-35.0); MCHC 33.6 g/dL (31.0-37.0); MCV 87.8 fL (80.0-100.0); Mean Platelet Volume 11.1; Monocytes # (A) 0.1 k/uL (0-1.0); Monocytes % (A) 1 %; Neutrophils # (A) 4.8 k/uL (1.3-7.7); Neutrophils % (A) 76 %; RBC 3.57 m/uL (3.80-5.40); RDW 18.3 % (11.5-15.5); WBC 6.4 k/uL (3.8-10.6)
[2022-06-21 01:00] LABS: Partial Thromboplastin Time 26.3 sec (22.0-30.0); Prothrombin Time 10.6 sec (9.0-12.0)
[2022-06-21 01:28] LABS: Platelet Count 87 k/uL (150-450)
[2022-06-21] MEDS: SODIUM CHLORIDE 0.9% 1,000 ML IV SCH ×4 (01:41→15:55)
[2022-06-21] MEDS ORDERED: ACETAMINOPHEN TAB 325 MG TAB PO PRN (02:00)
[2022-06-21] MEDS ORDERED: ONDANSETRON 4 MG/2 ML VIAL IVP PRN (02:00)
[2022-06-21] MEDS ORDERED: NALOXONE 0.4 MG/ML 1 ML VIAL IV PRN (02:00)
[2022-06-21] MEDS ORDERED: MORPHINE SULFATE 4 MG/ML SYRINGE IV PRN (02:00)
[2022-06-21] MEDS ORDERED: cefTRIAXone IN SWFI 1,000 MG/10 ML SYRINGE IVP STA (04:45)
[2022-06-21 08:15] VITALS: BP 134/50; PULSE 64; RESP 18
--- NOTE | 2022-07-05 10:29 | P.HPIM ---
History of Present Illness H&P Date: 06/21/22 Chief Complaint: Generalized weakness/difficulty walking Flagyl at 77-year-old female she presents today for evaluation of weakness fever sweating not feeling well. Patient has a sore throat fatigue comes from extended care facility for rehab over hip, there is an outbreak of coronavirus MD Complaint: generalized weakness, lack of energy, difficulty walking Workup completed in ED reveals mildly elevated BUN/creatinine and clinical dehydration; patient received IV fluid hydration in ED and was recommended admission to medical floor for further hydration Review of Systems REVIEW OF SYSTEMS: CONSTITUTIONAL: No fever, no malaise, no fatigue. HEENT: No recent visual problems or hearing problems. Denied any sore throat. CARDIOVASCULAR: No chest pain, orthopnea, PND, no palpitations, no syncope. PULMONARY: No shortness of breath, no cough, no hemoptysis. GASTROINTESTINAL: No diarrhea, no nausea, no vomiting, no abdominal pain. NEUROLOGICAL: No headaches, no weakness, no numbness. HEMATOLOGICAL: Denies any bleeding or petechiae. GENITOURINARY: Denies any burning micturition, frequency, or urgency. MUSCULOSKELETAL/RHEUMATOLOGICAL: Denies any joint pain, swelling, or any muscle pain. ENDOCRINE: Denies any polyuria or polydipsia. The rest of the 14-point review of systems is negative. 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 CATARACTS RONY. carpal tunnelWITH LENS IMPLANT 2007, lower back spinal fusion 2018, left knee surgery 2018., Past Anesthesia/Blood Transfusion Reactions: Postoperative Nausea & Vomiting (PONV) Additional Past Anesthesia/Blood Transfusion Reaction / Comment(s): PONV and hard to wake up Past Psychological History: Anxiety, Depression Smoking Status: Former smoker Past Alcohol Use History: None Reported Past Drug Use History: None Reported - Past Family History Brother(s) Additional Family Medical History / Comment(s): Shunt has 1 brother and 1 sister but she does not have any contact with them. Patient has 3 children that are all healthy. Mother Family Medical History: Cancer Additional Family Medical History / Comment(s): . Father Family Medical History: Cancer Additional Family Medical History / Comment(s): . Medications and Allergies Home Medications Medication Instructions Recorded Confirmed Type Multivitamins, Thera [Multivitamin 1 tab PO DAILY 06/14/16 06/21/22 History (formulary)] Potassium Chloride [Klor-Con 20] 20 meq PO DAILY 07/24/18 06/21/22 History Aspirin [Children's Aspirin] 81 mg PO HS 01/21/19 06/21/22 History Folic Acid 1 mg PO DAILY 01/21/19 06/21/22 History metHOTREXate sodium [Methotrexate] 20 mg PO SAMANIEGO@0900 01/21/19 06/21/22 History Ergocalciferol [Vitamin D2 (1250 1,250 mcg PO SAMANIEGO 05/24/21 06/21/22 History Mcg = 65646 Iu)] Famotidine [Pepcid] 20 mg PO DAILY #0 tab 04/19/22 06/21/22 Rx Mirtazapine 7.5 mg PO HS 05/23/22 06/21/22 History Acetaminophen Tab [Tylenol] 650 mg PO Q6HR PRN tab 06/03/22 06/21/22 Rx Docusate [Colace] 100 mg PO BID PRN cap 06/03/22 06/21/22 Rx Furosemide [Lasix] 40 mg PO DAILY tab 06/03/22 06/21/22 Rx Heparin Sodium,Porcine [Heparin 5,000 unit SQ Q12HR 30 Days #60 06/03/22 06/21/22 Rx Sodium] each Ipratropium-Albuterol Nebulize 3 ml INHALATION RT-TID each 06/03/22 06/21/22 Rx [Duoneb 0.5 mg-3 mg/3 ml Soln] Ipratropium-Albuterol Nebulize 3 ml INHALATION RT-TID PRN each 06/03/22 06/21/22 Rx [Duoneb 0.5 mg-3 mg/3 ml Soln] Sodium Bicarbonate Tab 650 mg PO BID tab 06/03/22 06/21/22 Rx amLODIPine [Norvasc] 10 mg PO DAILY tab 06/03/22 06/21/22 Rx hydrALAZINE HCL [Apresoline] 25 mg PO BID tab 06/03/22 06/21/22 Rx Acetaminophen-Codeine 300-30mg 1 tab PO Q6H PRN #6 tab 06/21/22 Rx [Tylenol w/codeine #3] Clotrimazole Cream [Lotrimin Cream] 1 applic TOPICAL BID 06/21/22 06/21/22 History Pregabalin [Lyrica] 100 mg PO BID@1400,2100 #4 cap 06/21/22 Rx Zguard 1 applic TOPICAL BID 06/21/22 06/21/22 History cloNIDine 0.3 MG/24HR PATCH 1 patch TRANSDERM MO 06/21/22 06/21/22 History [Catapres-TTS] predniSONE [Deltasone] 40 mg PO DAILY 5 Days #5 tab 06/21/22 Rx Allergies Allergy/AdvReac Type Severity Reaction Status Date / Time alprazolam [From Xanax] Allergy Unknown Verified 06/21/22 07:01 amlodipine [From Norvasc] Allergy Unknown Verified 06/21/22 07:01 amoxicillin trihydrate AdvReac Severe Nausea & Verified 06/21/22 07:01 [From Augmentin] Vomiting & Diarrhea potassium clavulanate AdvReac Severe Nausea & Verified 06/21/22 07:01 [From Augmentin] Vomiting & Diarrhea sulfamethoxazole AdvReac Severe affected Verified 06/21/22 07:01 [From Bactrim] muscles - couldn't move trimethoprim [From Bactrim] AdvReac Severe affected Verified 06/21/22 07:01 muscles - couldn't move diazepam [From Valium] AdvReac hard time Verified 06/21/22 07:01 coming out of anesthesia Dxsposm-CDN-AuM Reductase AdvReac leg cramps Verified 06/21/22 07:01 Inhibitor [Jifunrq-Ots-Evg Reductase Inhibitor] Sulfa (Sulfonamide AdvReac affected Verified 06/21/22 07:01 Antibiotics) muscles - couldn't move Physical Exam Vitals: Vital Signs Temp Pulse Resp BP Pulse Ox 06/21/22 08:00 64 18 134/50 95 06/21/22 05:08 60 13 152/58 97 06/20/22 23:21 99.8 F H 74 16 194/161 94 L Intake and Output 06/20/22 06/21/22 06/21/22 22:59 06:59 14:59 Other: Weight 127.006 kg General appearance: alert, in no apparent distress Head exam: Present: atraumatic, normocephalic, normal inspection Eye exam: Present: normal appearance, PERRL, EOMI. Absent: scleral icterus, conjunctival injection, periorbital swelling ENT exam: Present: normal exam, mucous membranes moist Neck exam: Present: normal inspection. Absent: tenderness, meningismus, lymphadenopathy Respiratory exam: Present: normal lung sounds bilaterally. Absent: respiratory distress, wheezes, rales, rhonchi, stridor Cardiovascular Exam: Present: regular rate, normal rhythm, normal heart sounds. Absent: systolic murmur, diastolic murmur, rubs, gallop, clicks GI/Abdominal exam: Present: soft, normal bowel sounds. Absent: distended, tenderness, guarding, rebound, rigid Extremities exam: Present: normal inspection, full ROM, normal capillary refill. Absent: tenderness, pedal edema, joint swelling, calf tenderness Back exam: Present: normal inspection Neurological exam: Present: alert, oriented X3, CN II-XII intact Psychiatric exam: Present: normal affect, normal mood Skin exam: Present: warm, dry, intact, normal color. Absent: rash Results CBC & Chem 7: 06/20/22 23:38 06/20/22 23:38 Labs: Abnormal Lab Results - Last 24 Hours (Table) 06/20/22 06/20/22 06/20/22 Range/Units 23:38 23:38 23:38 RBC 3.57 L (3.80-5.40) m/uL Hgb 10.5 L (11.4-16.0) gm/dL Hct 31.4 L (34.0-46.0) % RDW 18.3 H (11.5-15.5) % Plt Count 87 L (150-450) k/uL BUN 24 H (7-17) mg/dL Creatinine 1.12 H (0.52-1.04) mg/dL Glucose 121 H (74-99) mg/dL AST 52 H (14-36) U/L ALT 42 H (4-34) U/L Lactate Dehydrogenase 720 H (313-618) U/L C-Reactive Protein 6.2 H (<1.0) mg/dL Procalcitonin 0.33 H (0.02-0.09) ng/mL Assessment and Plan Assessment: 1. Acute renal injury/dehydration; BUN/creatinine elevated at 24/1.12; patient did receive IV fluid hydration and in ED; Celexa lites closely and avoid nephrotoxins and hypotension 2. Generalized weakness/inability to ambulate; debility; patient was transferred to the skilled rehab post repair left distal fibular fracture; we will consult PT/OT with plans to resume outpatient rehab 3. Transaminitis; AST/ALT elevated at 52/42; we will monitor liver enzymes closely. Further workup if liver enzymes continue to trend up 4. Hypertension; currently stable 5. CAD/CHF; continue with home regimen with aspirin, beta blockers and statin therapy; patient remains on Imdur 30 mg daily; resume home dose of Bumex 6. Hyperlipidemia; currently not on statin therapy 7. Osteoarthritis/rheumatoid DVT prophylaxis; SCDs CODE STATUS; full code
--- NOTE | 2022-07-05 10:31 | P.DS ---
Providers Date of admission: 06/21/22 02:00 Attending physician: Abhijit Bell Primary care physician: Romario [facility] Course: 77-year-old female she presents today for evaluation of weakness fever sweating not feeling well. Patient has a sore throat fatigue comes from extended care facility for rehab over hip, there is an outbreak of coronavirus MD Complaint: generalized weakness, lack of energy, difficulty walking Workup completed in ED reveals mildly elevated BUN/creatinine and clinical dehydration; patient received IV fluid hydration in ED and was recommended admission to medical floor for further hydration 1. Acute renal injury/dehydration; BUN/creatinine elevated at 24/1.12; patient did receive IV fluid hydration and in ED; Celexa lites closely and avoid nephrotoxins and hypotension 2. Generalized weakness/inability to ambulate; debility; patient was transferred to the skilled rehab post repair left distal fibular fracture; we will consult PT/OT with plans to resume outpatient rehab 3. Transaminitis; AST/ALT elevated at 52/42; we will monitor liver enzymes closely. Further workup if liver enzymes continue to trend up 4. Hypertension; currently stable 5. CAD/CHF; continue with home regimen with aspirin, beta blockers and statin therapy; patient remains on Imdur 30 mg daily; resume home dose of Bumex 6. Hyperlipidemia; currently not on statin therapy 7. Osteoarthritis/rheumatoid DVT prophylaxis; SCDs CODE STATUS; full code Patient demonstrated marked improvement with IV fluid hydration and was more awake and responsive and was discharged back to skilled rehab Patient Condition at Discharge: Fair Plan - Discharge Summary New Discharge Prescriptions: New predniSONE [Deltasone] 40 mg PO DAILY 5 Days #5 tab Continue Multivitamins, Thera [Multivitamin (formulary)] 1 tab PO DAILY Potassium Chloride [Klor-Con 20] 20 meq PO DAILY metHOTREXate sodium [Methotrexate] 20 mg PO SAMANIEGO@0900 Folic Acid 1 mg PO DAILY Aspirin [Children's Aspirin] 81 mg PO HS hydrALAZINE HCL [Apresoline] 25 mg PO BID tab Docusate [Colace] 100 mg PO BID PRN cap PRN Reason: Constipation Ipratropium-Albuterol Nebulize [Duoneb 0.5 mg-3 mg/3 ml Soln] 3 ml INHALATION RT-TID PRN each PRN Reason: Shortness Of Breath Or Wheezing Sodium Bicarbonate Tab 650 mg PO BID tab cloNIDine 0.3 MG/24HR PATCH [Catapres-TTS] 1 patch TRANSDERM MO Clotrimazole Cream [Lotrimin Cream] 1 applic TOPICAL BID Zguard 1 applic TOPICAL BID Pregabalin [Lyrica] 100 mg PO BID@1400,2100 #4 cap Acetaminophen-Codeine 300-30mg [Tylenol w/codeine #3] 1 tab PO Q6H PRN #6 tab PRN Reason: Pain Ergocalciferol [Vitamin D2 (1250 Mcg = 39680 Iu)] 1,250 mcg PO SAMANIEGO Famotidine [Pepcid] 20 mg PO DAILY #0 tab Mirtazapine 7.5 mg PO HS Ipratropium-Albuterol Nebulize [Duoneb 0.5 mg-3 mg/3 ml Soln] 3 ml INHALATION RT-TID each Heparin Sodium,Porcine [Heparin Sodium] 5,000 unit SQ Q12HR 30 Days #60 each Furosemide [Lasix] 40 mg PO DAILY tab amLODIPine [Norvasc] 10 mg PO DAILY tab Acetaminophen Tab [Tylenol] 650 mg PO Q6HR PRN tab PRN Reason: Fever and/ or Mild Pain Discharge Medication List Multivitamins, Thera [Multivitamin (formulary)] 1 tab PO DAILY 06/14/16 [History] Potassium Chloride [Klor-Con 20] 20 meq PO DAILY 07/24/18 [History] Aspirin [Children's Aspirin] 81 mg PO HS 01/21/19 [History] Folic Acid 1 mg PO DAILY 01/21/19 [History] metHOTREXate sodium [Methotrexate] 20 mg PO SAMANIEGO@0900 01/21/19 [History] Ergocalciferol [Vitamin D2 (1250 Mcg = 66551 Iu)] 1,250 mcg PO SAMANIEGO 05/24/21 [History] Famotidine [Pepcid] 20 mg PO DAILY #0 tab 04/19/22 [Rx] Mirtazapine 7.5 mg PO HS 05/23/22 [History] Acetaminophen Tab [Tylenol] 650 mg PO Q6HR PRN tab 06/03/22 [Rx] Docusate [Colace] 100 mg PO BID PRN cap 06/03/22 [Rx] Furosemide [Lasix] 40 mg PO DAILY tab 06/03/22 [Rx] Heparin Sodium,Porcine [Heparin Sodium] 5,000 unit SQ Q12HR 30 Days #60 each 06/03/22 [Rx] Ipratropium-Albuterol Nebulize [Duoneb 0.5 mg-3 mg/3 ml Soln] 3 ml INHALATION RT-TID each 06/03/22 [Rx] Ipratropium-Albuterol Nebulize [Duoneb 0.5 mg-3 mg/3 ml Soln] 3 ml INHALATION RT-TID PRN each 06/03/22 [Rx] Sodium Bicarbonate Tab 650 mg PO BID tab 06/03/22 [Rx] amLODIPine [Norvasc] 10 mg PO DAILY tab 06/03/22 [Rx] hydrALAZINE HCL [Apresoline] 25 mg PO BID tab 06/03/22 [Rx] Acetaminophen-Codeine 300-30mg [Tylenol w/codeine #3] 1 tab PO Q6H PRN #6 tab 06/21/22 [Rx] Clotrimazole Cream [Lotrimin Cream] 1 applic TOPICAL BID 06/21/22 [History] Pregabalin [Lyrica] 100 mg PO BID@1400,2100 #4 cap 06/21/22 [Rx] Zguard 1 applic TOPICAL BID 06/21/22 [History] cloNIDine 0.3 MG/24HR PATCH [Catapres-TTS] 1 patch TRANSDERM MO 06/21/22 [History] predniSONE [Deltasone] 40 mg PO DAILY 5 Days #5 tab 06/21/22 [Rx] Follow up Appointment(s)/Referral(s): Romario Russ DO [Primary Care Provider] - 1-2 days Discharge Disposition: TRANSFER TO SNF/ECF
== END 2022-06-21 15:56 ==
LOC: EC 23:13 → 4SSUR 06-21 02:00
PROVIDERS: ADMIT Hospitalist; ATTEND Hospitalist
DX: N17.9 Acute kidney failure, unspecified (principal); E86.0 Dehydration; J02.9 Acute pharyngitis, unspecified; S82.832A Other fracture of upper and lower end of left fibula, initial encounter for closed fracture; I11.0 Hypertensive heart disease with heart failure; I50.9 Heart failure, unspecified; R74.01 Elevation of levels of liver transaminase levels; R74.8 Abnormal levels of other serum enzymes; E78.5 Hyperlipidemia, unspecified; R53.81 Other malaise; I25.10 Atherosclerotic heart disease of native coronary artery without angina pectoris; M06.9 Rheumatoid arthritis, unspecified; M47.9 Spondylosis, unspecified; M19.90 Unspecified osteoarthritis, unspecified site; F32.A Depression, unspecified; F41.9 Anxiety disorder, unspecified; Z20.822 Contact with and (suspected) exposure to COVID-19; Z79.82 Long term (current) use of aspirin; Z79.899 Other long term (current) drug therapy; Z88.0 Allergy status to penicillin; Z88.1 Allergy status to other antibiotic agents; Z88.2 Allergy status to sulfonamides; Z88.8 Allergy status to other drugs, medicaments and biological substances; Z87.891 Personal history of nicotine dependence; Z90.49 Acquired absence of other specified parts of digestive tract; Z90.710 Acquired absence of both cervix and uterus; Z95.1 Presence of aortocoronary bypass graft; Z98.42 Cataract extraction status, left eye; Z98.41 Cataract extraction status, right eye; Z96.1 Presence of intraocular lens; Z98.1 Arthrodesis status; Z98.890 Other specified postprocedural states; Z80.9 Family history of malignant neoplasm, unspecified
CPT/HCPCS: 96361; 96365; 96375; 99285; 36415; 93005; 97162; 97166; 80053; 83605; 83615; 83735; 85025; 85610; 85730; 86140; 84145; 87635; 71045; G0378; J1100; J0696; J1741

== ENCOUNTER 2022-08-06 11:51 | Inpatient (IN) | payer MEDICARE, BC ==
[2022-08-06] MEDS ORDERED: SODIUM CHLORIDE 0.9% 500 ML 500 ML IV STA (12:04)
--- NOTE | 2022-08-06 12:35 | XR ---
EXAMINATION TYPE: XR chest 2V DATE OF EXAM: 08/06/2022 COMPARISON: 06/21/2022 HISTORY: Shortness of breath TECHNIQUE: Frontal and lateral views of the chest are obtained. FINDINGS: Scattered senescent parenchymal changes noted. No evidence for infiltrate. No evidence for atelectasis. Heart size is stable. Mediastinal structures are stable and grossly unremarkable. No evidence for hilar prominence. Degenerative changes dorsal spine. IMPRESSION: 1. No evidence for acute pulmonary disease.
[2022-08-06 12:43] LABS: Albumin 3.1 g/dL (3.5-5.0); Calcium 10.2 mg/dL (8.4-10.2); Magnesium 2.3 mg/dL (1.6-2.3); Potassium 3.8 mmol/L (3.5-5.1); Total Bilirubin 0.6 mg/dL (0.2-1.3); Total Protein 6.6 g/dL (6.3-8.2)
[2022-08-06 12:48] LABS: Anisocytosis Slight; Basophils # (A) 0.1 k/uL (0-0.2); Basophils % (A) 1 %; Eosinophils # (A) 0.7 k/uL (0-0.7); Eosinophils % (A) 7 %; HCT 34.2 % (34.0-46.0); HGB 11.3 gm/dL (11.4-16.0); Hypochromasia Slight; Lymphocytes # (A) 1.6 k/uL (1.0-4.8); Lymphocytes % (A) 15 %; MCH 28.7 pg (25.0-35.0); MCHC 33.2 g/dL (31.0-37.0); Mean Platelet Volume 10.9; Monocytes # (A) 0.5 k/uL (0-1.0); Monocytes % (A) 5 %; Neutrophils # (A) 7.3 k/uL (1.3-7.7); Neutrophils % (A) 70 %; Platelet Count 137 k/uL (150-450); RBC 3.96 m/uL (3.80-5.40); WBC 10.5 k/uL (3.8-10.6)
[2022-08-06 12:50] LABS: MCV 86.4 fL (80.0-100.0)
[2022-08-06 12:54] LABS: Appearance,Urine Turbid (Clear); Bacteria,Urine Moderate /hpf; Bilirubin,Urine Negative (Negative); Blood,Urine Moderate (Negative); Color,Urine Yellow; Glucose,Urine (UA) Negative (Negative); Ketones,Urine Negative (Negative); Leukocyte Esterase,Urine Large (Negative); Mucus,Urine Moderate /hpf; Nitrite,Urine Negative (Negative); Protein,Urine 2+ (Negative); RBC,Urine 27 /hpf (0-5); Urobilinogen,Urine <2.0 mg/dL (<2.0); WBC,Urine >182 /hpf (0-5)
[2022-08-06 13:04] LABS: INR 1.1 (<1.2); Prothrombin Time 11.1 sec (9.0-12.0)
[2022-08-06 13:07] LABS: Partial Thromboplastin Time 21.8 sec (22.0-30.0)
--- NOTE | 2022-08-06 13:30 | ED ---
General Adult HPI - General Chief complaint: Weakness Stated complaint: AMS Time Seen by Provider: 08/06/22 11:55 Source: patient, EMS, RN notes reviewed, Caregiver Mode of arrival: EMS Limitations: altered mental status - History of Present Illness Initial comments: This a 77-year-old female presents emergency department for [facility] for complaints of altered mental status, weakness, failure to thrive. Patient has been declining last 2 weeks eating, not drinking unable to care for herself. Patient states that she does not feel well she cannot pinpoint a reason why. Patient reported 99-100 temp per EMS. Patient has a significant cough denies shortness of breath. Family states that she is not her normal baseline. Patient states that she's been so weak she was having difficulty and bleeding. - Related Data Home Medications Medication Instructions Recorded Confirmed Multivitamins, Thera [Multivitamin 1 tab PO DAILY 06/14/16 06/21/22 (formulary)] Potassium Chloride [Klor-Con 20] 20 meq PO DAILY 07/24/18 06/21/22 Aspirin [Children's Aspirin] 81 mg PO HS 01/21/19 06/21/22 Folic Acid 1 mg PO DAILY 01/21/19 06/21/22 metHOTREXate sodium [Methotrexate] 20 mg PO SAMANIEGO@0900 01/21/19 06/21/22 Ergocalciferol [Vitamin D2 (1250 1,250 mcg PO SAMANIEGO 05/24/21 06/21/22 Mcg = 00145 Iu)] Mirtazapine 7.5 mg PO HS 05/23/22 06/21/22 Clotrimazole Cream [Lotrimin Cream] 1 applic TOPICAL BID 06/21/22 06/21/22 Zguard 1 applic TOPICAL BID 06/21/22 06/21/22 cloNIDine 0.3 MG/24HR PATCH 1 patch TRANSDERM MO 06/21/22 06/21/22 [Catapres-TTS] Previous Rx's Medication Instructions Recorded Famotidine [Pepcid] 20 mg PO DAILY #0 tab 04/19/22 Acetaminophen Tab [Tylenol] 650 mg PO Q6HR PRN tab 06/03/22 Docusate [Colace] 100 mg PO BID PRN cap 06/03/22 Furosemide [Lasix] 40 mg PO DAILY tab 06/03/22 Heparin Sodium,Porcine [Heparin 5,000 unit SQ Q12HR 30 Days #60 06/03/22 Sodium] each Ipratropium-Albuterol Nebulize 3 ml INHALATION RT-TID each 06/03/22 [Duoneb 0.5 mg-3 mg/3 ml Soln] Ipratropium-Albuterol Nebulize 3 ml INHALATION RT-TID PRN each 06/03/22 [Duoneb 0.5 mg-3 mg/3 ml Soln] Sodium Bicarbonate Tab 650 mg PO BID tab 06/03/22 amLODIPine [Norvasc] 10 mg PO DAILY tab 06/03/22 hydrALAZINE HCL [Apresoline] 25 mg PO BID tab 06/03/22 Acetaminophen-Codeine 300-30mg 1 tab PO Q6H PRN #6 tab 06/21/22 [Tylenol w/codeine #3] Pregabalin [Lyrica] 100 mg PO BID@1400,2100 #4 cap 06/21/22 predniSONE [Deltasone] 40 mg PO DAILY 5 Days #5 tab 06/21/22 Allergies Allergy/AdvReac Type Severity Reaction Status Date / Time alprazolam [From Xanax] Allergy Unknown Verified 08/06/22 12:18 amlodipine [From Norvasc] Allergy Unknown Verified 08/06/22 12:18 amoxicillin trihydrate AdvReac Severe Nausea & Verified 08/06/22 12:18 [From Augmentin] Vomiting & Diarrhea potassium clavulanate AdvReac Severe Nausea & Verified 08/06/22 12:18 [From Augmentin] Vomiting & Diarrhea sulfamethoxazole AdvReac Severe affected Verified 08/06/22 12:18 [From Bactrim] muscles - couldn't move trimethoprim [From Bactrim] AdvReac Severe affected Verified 08/06/22 12:18 muscles - couldn't move diazepam [From Valium] AdvReac hard time Verified 08/06/22 12:18 coming out of anesthesia Dbkxggr-[id number]-[id number] Reductase AdvReac leg cramps Verified 08/06/22 12:18 Inhibitor [Aymgatm-Ots-Hcc Reductase Inhibitor] Sulfa (Sulfonamide AdvReac affected Verified 08/06/22 12:18 Antibiotics) muscles - couldn't move Review of Systems ROS Statement: Those systems with pertinent positive or pertinent negative responses have been documented in the HPI. ROS Other: All systems not noted in ROS Statement are negative. 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 CATARACTS RONY. carpal tunnelWITH LENS IMPLANT 2007, lower back spinal fusion 2017, left knee surgery 2018., Past Anesthesia/Blood Transfusion Reactions: Postoperative Nausea & Vomiting (PONV) Additional Past Anesthesia/Blood Transfusion Reaction / Comment(s): PONV and hard to wake up Past Psychological History: Anxiety, Depression Smoking Status: Former smoker Past Alcohol Use History: None Reported Past Drug Use History: None Reported - Past Family History Brother(s) Additional Family Medical History / Comment(s): Shunt has 1 brother and 1 sister but she does not have any contact with them. Patient has 3 children that are all healthy. Mother Family Medical History: Cancer Additional Family Medical History / Comment(s): . Father Family Medical History: Cancer Additional Family Medical History / Comment(s): . General Exam Limitations: altered mental status Course Vital Signs 08/06/22 12:12 Temperature 97 F L Pulse Rate 65 Respiratory 14 Rate Blood Pressure 150/55 O2 Sat by Pulse 97 Oximetry Medical Decision Making - Medical Decision Making 77-year-old female presented for increasing weakness Salter mental status, failure to thrive. Patient's found to have possible fever. Patient has evidence of urinary tract infection. Patient will be admitted for IV antibiotics, further treatment, possible physical therapy, occupational therapy - Lab Data Result diagrams: 08/06/22 12:12 08/06/22 12:12 Lab Results 08/06/22 08/06/22 08/06/22 Range/Units 12:12 12:12 12:12 WBC 10.5 (3.8-10.6) k/uL RBC 3.96 (3.80-5.40) m/uL Hgb 11.3 L (11.4-16.0) gm/dL Hct 34.2 (34.0-46.0) % MCV 86.4 D (80.0-100.0) fL MCH 28.7 (25.0-35.0) pg MCHC 33.2 (31.0-37.0) g/dL RDW 17.0 H (11.5-15.5) % Plt Count 137 L (150-450) k/uL MPV 10.9 Neutrophils % 70 % Lymphocytes % 15 % Monocytes % 5 % Eosinophils % 7 % Basophils % 1 % Neutrophils # 7.3 (1.3-7.7) k/uL Lymphocytes # 1.6 (1.0-4.8) k/uL Monocytes # 0.5 (0-1.0) k/uL Eosinophils # 0.7 (0-0.7) k/uL Basophils # 0.1 (0-0.2) k/uL Hypochromasia Slight Anisocytosis Slight PT 11.1 (9.0-12.0) sec INR 1.1 (<1.2) APTT 21.8 L (22.0-30.0) sec Sodium (137-145) mmol/L Potassium (3.5-5.1) mmol/L Chloride (98-107) mmol/L Carbon Dioxide (22-30) mmol/L Anion Gap mmol/L BUN (7-17) mg/dL Creatinine (0.52-1.04) mg/dL Est GFR (CKD-EPI)AfAm (>60 ml/min/1.73 sqM) Est GFR (CKD-EPI)NonAf (>60 ml/min/1.73 sqM) Glucose (74-99) mg/dL Plasma Lactic Acid See (0.7-2.0) mmol/L Calcium (8.4-10.2) mg/dL Magnesium (1.6-2.3) mg/dL Total Bilirubin (0.2-1.3) mg/dL AST (14-36) U/L ALT (4-34) U/L Alkaline Phosphatase (38-126) U/L Troponin I (0.000-0.034) ng/mL Total Protein (6.3-8.2) g/dL Albumin (3.5-5.0) g/dL Urine Color Yellow Urine Appearance Turbid H (Clear) Urine pH 6.0 (5.0-8.0) Ur Specific [place] 1.018 (1.001-1.035) Urine Protein 2+ H (Negative) Urine Glucose (UA) Negative (Negative) Urine Ketones Negative (Negative) Urine Blood Moderate H (Negative) Urine Nitrite Negative (Negative) Urine Bilirubin Negative (Negative) Urine Urobilinogen <2.0 (<2.0) mg/dL Ur Leukocyte Esterase Large H (Negative) Urine RBC 27 H (0-5) /hpf Urine WBC >182 H (0-5) /hpf Urine WBC Clumps Many H (None) /hpf Urine Bacteria Moderate H (None) /hpf Urine Mucus Moderate H (None) /hpf Influenza Type A (PCR) (Not Detectd) Influenza Type B (PCR) (Not Detectd) RSV (PCR) (Not Detectd) SARS-CoV-2 (PCR) (Not Detectd) 08/06/22 08/06/22 08/06/22 Range/Units 12:12 12:12 12:12 WBC (3.8-10.6) k/uL RBC (3.80-5.40) m/uL Hgb (11.4-16.0) gm/dL Hct (34.0-46.0) % MCV (80.0-100.0) fL MCH (25.0-35.0) pg MCHC (31.0-37.0) g/dL RDW (11.5-15.5) % Plt Count (150-450) k/uL MPV Neutrophils % % Lymphocytes % % Monocytes % % Eosinophils % % Basophils % % Neutrophils # (1.3-7.7) k/uL Lymphocytes # (1.0-4.8) k/uL Monocytes # (0-1.0) k/uL Eosinophils # (0-0.7) k/uL Basophils # (0-0.2) k/uL Hypochromasia Anisocytosis PT (9.0-12.0) sec INR (<1.2) APTT (22.0-30.0) sec Sodium 142 (137-145) mmol/L Potassium 3.8 (3.5-5.1) mmol/L Chloride 110 H (98-107) mmol/L Carbon Dioxide 25 (22-30) mmol/L Anion Gap 7 mmol/L BUN 21 H (7-17) mg/dL Creatinine 1.22 H (0.52-1.04) mg/dL Est GFR (CKD-EPI)AfAm 50 (>60 ml/min/1.73 sqM) Est GFR (CKD-EPI)NonAf 43 (>60 ml/min/1.73 sqM) Glucose 99 (74-99) mg/dL Plasma Lactic Acid See 0.9 (0.7-2.0) mmol/L Calcium 10.2 (8.4-10.2) mg/dL Magnesium 2.3 (1.6-2.3) mg/dL Total Bilirubin 0.6 (0.2-1.3) mg/dL AST 30 (14-36) U/L ALT 16 (4-34) U/L Alkaline Phosphatase 78 (38-126) U/L Troponin I 0.018 (0.000-0.034) ng/mL Total Protein 6.6 (6.3-8.2) g/dL Albumin 3.1 L (3.5-5.0) g/dL Urine Color Urine Appearance (Clear) Urine pH (5.0-8.0) Ur Specific [place] (1.001-1.035) Urine Protein (Negative) Urine Glucose (UA) (Negative) Urine Ketones (Negative) Urine Blood (Negative) Urine Nitrite (Negative) Urine Bilirubin (Negative) Urine Urobilinogen (<2.0) mg/dL Ur Leukocyte Esterase (Negative) Urine RBC (0-5) /hpf Urine WBC (0-5) /hpf Urine WBC Clumps (None) /hpf Urine Bacteria (None) /hpf Urine Mucus (None) /hpf Influenza Type A (PCR) (Not Detectd) Influenza Type B (PCR) (Not Detectd) RSV (PCR) (Not Detectd) SARS-CoV-2 (PCR) (Not Detectd) 08/06/22 Range/Units 12:14 WBC (3.8-10.6) k/uL RBC (3.80-5.40) m/uL Hgb (11.4-16.0) gm/dL Hct (34.0-46.0) % MCV (80.0-100.0) fL MCH (25.0-35.0) pg MCHC (31.0-37.0) g/dL RDW (11.5-15.5) % Plt Count (150-450) k/uL MPV Neutrophils % % Lymphocytes % % Monocytes % % Eosinophils % % Basophils % % Neutrophils # (1.3-7.7) k/uL Lymphocytes # (1.0-4.8) k/uL Monocytes # (0-1.0) k/uL Eosinophils # (0-0.7) k/uL Basophils # (0-0.2) k/uL Hypochromasia Anisocytosis PT (9.0-12.0) sec INR (<1.2) APTT (22.0-30.0) sec Sodium (137-145) mmol/L Potassium (3.5-5.1) mmol/L Chloride (98-107) mmol/L Carbon Dioxide (22-30) mmol/L Anion Gap mmol/L BUN (7-17) mg/dL Creatinine (0.52-1.04) mg/dL Est GFR (CKD-EPI)AfAm (>60 ml/min/1.73 sqM) Est GFR (CKD-EPI)NonAf (>60 ml/min/1.73 sqM) Glucose (74-99) mg/dL Plasma Lactic Acid See (0.7-2.0) mmol/L Calcium (8.4-10.2) mg/dL Magnesium (1.6-2.3) mg/dL Total Bilirubin (0.2-1.3) mg/dL AST (14-36) U/L ALT (4-34) U/L Alkaline Phosphatase (38-126) U/L Troponin I (0.000-0.034) ng/mL Total Protein (6.3-8.2) g/dL Albumin (3.5-5.0) g/dL Urine Color Urine Appearance (Clear) Urine pH (5.0-8.0) Ur Specific [place] (1.001-1.035) Urine Protein (Negative) Urine Glucose (UA) (Negative) Urine Ketones (Negative) Urine Blood (Negative) Urine Nitrite (Negative) Urine Bilirubin (Negative) Urine Urobilinogen (<2.0) mg/dL Ur Leukocyte Esterase (Negative) Urine RBC (0-5) /hpf Urine WBC (0-5) /hpf Urine WBC Clumps (None) /hpf Urine Bacteria (None) /hpf Urine Mucus (None) /hpf Influenza Type A (PCR) Not Detected (Not Detectd) Influenza Type B (PCR) Not Detected (Not Detectd) RSV (PCR) Not Detected (Not Detectd) SARS-CoV-2 (PCR) Not Detected (Not Detectd) Disposition Clinical Impression: Weakness, Altered mental status, Failure to thrive, UTI (urinary tract infection), Dehydration, Malnutrition Disposition: ADMITTED IP TO THIS HOSP Condition: Fair Referrals: Willy Chiu MD [Primary Care Provider] - 1-2 days Time of Disposition: 13:29
[2022-08-06 13:41] LABS: Specific Gravity,Urine 1.018 (1.001-1.035)
[2022-08-06] MEDS ORDERED: NALOXONE 0.4 MG/ML 1 ML VIAL IV PRN (13:45)
[2022-08-06] MEDS ORDERED: ONDANSETRON 4 MG/2 ML VIAL IVP PRN (13:45)
--- NOTE | 2022-08-06 14:08 | CT ---
EXAMINATION TYPE: CT brain wo con DATE OF EXAM: 08/06/2022 HISTORY: ams. CT DLP: 1173.4 mGycm. Automated Exposure Control for Dose Reduction was Utilized. TECHNIQUE: CT scan of the head is performed without contrast. COMPARISON: CT brain May 26, 2022. FINDINGS: There is no acute intracranial hemorrhage or midline shift identified. There is mild to m oderate diffuse ventricular and sulcal prominence consistent with diffuse age-related cerebral atroph y. Jeffers-white matter differentiation fairly well maintained. The globes are intact and the visualize d sinuses are clear. Lucent lesion left frontal calvarium on axial image 46 of uncertain etiology i s unchanged from prior studies from April 14, 2022 favored benign. IMPRESSION: No acute intracranial hemorrhage or midline shift. There is [id number] diffuse ce rebral atrophy redemonstrated. No significant change from prior.
[2022-08-06] MEDS: SODIUM CHLORIDE 0.9% 1,000 ML IV SCH (14:11)
--- NOTE | 2022-08-07 00:34 | HP ---
HISTORY AND PHYSICAL CHIEF COMPLAINT: Fever and change in mental status. HISTORY OF PRESENT ILLNESS: A 77-year-old woman with past medical history of multiple medical problems including hypertension, hyperlipidemia, being [facility], who was previously admitted to [facility] multiple times. The patient currently has poor p.o. intake. The patient is gradually declining according to the family and the patient also had dehydration previously. The patient is also running fever. The patient has change in mental status. The patient came to [facility] and was admitted for further evaluation and treatment. UTI was suspected. The patient is unable to give a coherent history. Most of the history were taken by discussion with staff and ER physician, review of the chart as well as discussion with the family member at the bedside, also Dr. Chiu. PAST MEDICAL HISTORY: Reviewed, include hypertension, hyperlipidemia, rest of medications and rest of the chart was also reviewed. HOME MEDICATIONS: Reviewed include prednisone, doses and rest of medication noted. ALLERGIES: Reviewed include Xanax. FAMILY HISTORY: Reviewed include cancer. SOCIAL HISTORY: Previous history of smoker. REVIEW OF SYSTEMS: Could not be taken because of change in mental status. PHYSICAL EXAMINATION: VITAL SIGNS: Pulse is 65, blood pressure ntd respirations 14. HEENT: Conjunctivae normal. Oral mucosa dry. NECK: No jugular venous distention. CARDIOVASCULAR: S1, S2. RESPIRATION: Breath sounds diminished at the bases. A few scattered rhonchi. ABDOMEN: Soft, nontender. LEGS: No edema. NERVOUS SYSTEM: Diffusely weak. SKIN: No ulcer, rash, bleeding. JOINTS: No active deforming arthropathy. LABS: Reviewed. ASSESSMENT: 1. Fever, change in mental status, rule out sepsis. 2. Possible urinary tract infection versus aspiration pneumonia. 3. Diminished p.o. intake and dehydration. 4. Gait dysfunction. 5. Hypertension. 6. Hyperlipidemia. 7. Multiple medical issues. 8. Coronary artery disease, coronary artery bypass grafting. RECOMMENDATION: This is a 77-year-old woman who presented with multiple complex medical issues, we will monitor the patient closely. I would recommend blood and urine culture. Empiric antibiotics. Resume home medications once I confirmed. Basic workup including CT of the brain. Repeat labs. Cautious hydration. Monitor creatinine closely. Prognosis guarded because of multiple complex medical issues, which I discussed at length with the patient's daughter at the bedside, who understand and agree. Further recommendations to follow. Discussed with Dr. Chiu also. JOAO / PRON: [id number] / WILLIAM
[2022-08-07] MEDS: SODIUM CHLORIDE 0.9% 1,000 ML IV SCH ×2 (04:45→16:43)
[2022-08-07] MEDS ORDERED: IPRATROPIUM-ALBUTEROL 3 ML NEB INHALATION PRN (14:25)
[2022-08-07] MEDS ORDERED: MAGNESIUM HYDROXIDE 2,400 MG/10 ML CUP PO PRN (14:25)
[2022-08-07] MEDS ORDERED: MAGIC MOUTHWASH PO SCH (14:30)
[2022-08-07] MEDS: DOCUSATE 100 MG CAP PO SCH (20:15)
[2022-08-07] MEDS: SODIUM BICARBONATE TAB 650 MG TAB PO SCH (20:15)
[2022-08-07] MEDS: LIDOCAINE VISCOUS 2% 15 ML CUP MUCOUS MEM SCH (20:15)
[2022-08-07] MEDS: ACETAMINOPHEN TAB 325 MG TAB PO PRN (20:15)
[2022-08-07] MEDS: MIRTAZAPINE 15 MG TAB PO SCH (20:15)
[2022-08-07] MEDS: hydrALAZINE HCL 25 MG TAB PO SCH (20:15)
[2022-08-07] MEDS ORDERED: VANCOMYCIN IV PER PHARMACY 1 EACH MISC MISCELLANE PRN (23:36)
--- NOTE | 2022-08-07 23:36 | P.CONS ---
History of Present Illness - Reason for Consult Consult date: 08/07/22 sepsis Requesting physician: Abhijit Bell - Chief Complaint mental status changes and weakness x one day - History of Present Illness Patient is a 77-[facility]-old female [facility] resident patient was sent to the ER yesterday afternoon for evaluation of mental status changes weakness and failure to thrive apparently patient has been declining over the last 2 week s with decreased oral intake not drinking and able to care for herself patient apparently also have a low-grade fever here at the [facility] with the symptoms the patient was brought into the ER on arrival to the ER the patient was afebrile and no fever have been recorded subsequently patient did have a normal white count did have elevated BUN/creatinine liver enzymes are normal urine was positive with large leukocyte esterase more than 22 WBC moderate bacteria influenza RSV and COVID PCR was negative urine is currently growing enterococcus blood culture with the coagulase-negative staph patient is currently on Rocephin infectious disease was consulted for further management of antibiotic therapy most information has been obtained from review the chart and talking to nursing staff and the patient with reported history patient did have a stage II pressure ulcer to the sacral area but no drainage and stage I to bilateral heel area but no open wound or any drainage Review of Systems Positive points has been mentioned in HPI complete review could not be obtained because of his underlying mental status Past Medical History Past Medical History: Coronary Artery Disease (CAD), Chest Pain / Angina, Hyperlipidemia, Hypertension, Osteoarthritis (OA) Additional Past Medical History / Comment(s): ARTHRITIS HEAD TO TOE- HANDS & LOWER BACK IS THE WORST-HANDS SWELL @ TIMES, urinary incontinence, "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 CATARACTS RONY. carpal tunnelWITH LENS IMPLANT 2007, lower back spinal fusion 2017, left knee surgery 2018., Past Anesthesia/Blood Transfusion Reactions: Postoperative Nausea & Vomiting (PONV) Additional Past Anesthesia/Blood Transfusion Reaction / Comm: PONV and hard to wake up Past Psychological History: Anxiety, Depression Additional Psychological History / Comment(s): . Smoking Status: Former smoker Past Alcohol Use History: None Reported Additional Past Alcohol Use History / Comment(s): QUIT 2007 WAS 1PPD smoker since age 17 or 19. She denies any medical marijuana, marijuana, street drug or alcohol use. She lives at home with her of 52 years. Past Drug Use History: None Reported - Past Family History Brother(s) Additional Family Medical History / Comment(s): Shunt has 1 brother and 1 sister but she does not have any contact with them. Patient has 3 children that are all healthy. Mother Family Medical History: Cancer Additional Family Medical History / Comment(s): . Father Family Medical History: Cancer Additional Family Medical History / Comment(s): . Medications and Allergies Home Medications Medication Instructions Recorded Confirmed Type Multivitamins, Thera [Multivitamin 1 tab PO DAILY 06/14/16 08/06/22 History (formulary)] Potassium Chloride [Klor-Con 20] 20 meq PO DAILY 07/24/18 08/06/22 History Aspirin [Children's Aspirin] 81 mg PO DAILY 01/21/19 08/06/22 History Folic Acid 1 mg PO DAILY 01/21/19 08/06/22 History Ergocalciferol [Vitamin D2 (1250 1,250 mcg PO SAMANIEGO 05/24/21 08/06/22 History Mcg = 95221 Iu)] Famotidine [Pepcid] 20 mg PO DAILY #0 tab 04/19/22 08/06/22 Rx Mirtazapine 7.5 mg PO HS 05/23/22 08/06/22 History Acetaminophen Tab [Tylenol] 650 mg PO Q6HR PRN tab 06/03/22 08/06/22 Rx Furosemide [Lasix] 40 mg PO DAILY tab 06/03/22 08/06/22 Rx Ipratropium-Albuterol Nebulize 3 ml INHALATION RT-TID PRN each 06/03/22 08/06/22 Rx [Duoneb 0.5 mg-3 mg/3 ml Soln] Sodium Bicarbonate Tab 650 mg PO BID tab 06/03/22 08/06/22 Rx amLODIPine [Norvasc] 10 mg PO DAILY tab 06/03/22 08/06/22 Rx Pregabalin [Lyrica] 100 mg PO BID@1400,2100 #4 cap 06/21/22 08/06/22 Rx cloNIDine 0.3 MG/24HR PATCH 1 patch TRANSDERM MO@0600 06/21/22 08/06/22 History [Catapres-TTS] Collagenase [Santyl Ointment] 1 applic TOPICAL HS 08/06/22 08/06/22 History Docusate [Colace] 100 mg PO BID 08/06/22 08/06/22 History Magic Mouthwash 1 dose PO Q12H 08/06/22 08/06/22 History Magnesium Hydroxide [Milk of 2,400 mg PO DAILY PRN 08/06/22 08/06/22 History Magnesia] Sertraline [Zoloft] 50 mg PO DAILY 08/06/22 08/06/22 History Nitrofurantoin Monohyd/M-Cryst 100 mg PO BID 7 Days #14 cap 08/13/22 Rx [Macrobid] Pregabalin [Lyrica] 75 mg PO BID #4 cap 08/13/22 Rx hydrALAZINE HCL [Apresoline] 50 mg PO BID #60 tab 08/13/22 Rx Allergies Allergy/AdvReac Type Severity Reaction Status Date / Time alprazolam [From Xanax] Allergy Unknown Verified 08/06/22 14:59 amlodipine [From Norvasc] Allergy Unknown Verified 08/06/22 14:59 amoxicillin trihydrate AdvReac Severe Nausea & Verified 08/06/22 14:59 [From Augmentin] Vomiting & Diarrhea potassium clavulanate AdvReac Severe Nausea & Verified 08/06/22 14:59 [From Augmentin] Vomiting & Diarrhea sulfamethoxazole AdvReac Severe affected Verified 08/06/22 14:59 [From Bactrim] muscles - couldn't move trimethoprim [From Bactrim] AdvReac Severe affected Verified 08/06/22 14:59 muscles - couldn't move diazepam [From Valium] AdvReac hard time Verified 08/06/22 14:59 coming out of anesthesia Nomjawe-NWU-JaN Reductase AdvReac leg cramps Verified 08/06/22 14:59 Inhibitor [Oglnsqs-Ivd-Nrp Reductase Inhibitor] Sulfa (Sulfonamide AdvReac affected Verified 08/06/22 14:59 Antibiotics) muscles - couldn't move Physical Exam Vitals: Vital Signs Temp Pulse Pulse Resp BP BP Pulse Ox 08/07/22 14:00 97.7 F 91 16 129/88 98 08/07/22 07:53 98.0 F 60 17 174/74 96 08/07/22 02:00 98.3 F 70 20 147/63 95 08/06/22 20:00 97.9 F 68 16 160/62 91 L 08/06/22 19:40 97 F L 63 16 161/69 95 08/06/22 18:00 55 L 18 174/63 94 L 08/06/22 17:00 53 L 18 152/64 95 08/06/22 16:00 65 18 158/60 94 L 08/06/22 15:00 61 18 168/69 96 Intake and Output 08/06/22 08/07/22 08/07/22 22:59 06:59 14:59 Other: Voiding Method Incontinent External Catheter # Voids 1 Weight 81.647 kg GENERAL DESCRIPTION: elderly femaleale lying in bed, no distress. No tachypnea or accessory muscle of respiration use. HEENT: Shows Pallor , no scleral icterus. Oral mucous membrane is dry. No pharyngeal erythema or thrush NECK: Trachea central, no thyromegaly. LUNGS: Unlabored breathing. decreased breath sound at the base HEART: S1, S2, regular rate and rhythm. No loud murmur ABDOMEN: Soft, no tenderness , guarding or rigidity, no organomegaly EXTREMITIES: No edema of feet.bilateral heel with stage I pressure ulcer with no surrounding redness SKIN: No rash, no masses palpable.stage II pressure ulcer to the sacral area with no slough tissue no surrounding redness NEUROLOGICAL: The patient is awake, but nonverbal orientation could not be determined. Results CBC & Chem 7: 08/10/22 08:10 08/12/22 03:25 Labs: Microbiology - Last 24 Hours (Table) 08/07/22 14:10 Blood Culture Gram Stain - Preliminary Blood Blood Culture - Preliminary Coagulase Negative Staph 08/07/22 08:17 Blood Culture Gram Stain - Preliminary Blood 08/06/22 14:00 Blood Culture - Final Blood 08/06/22 14:10 Blood Culture - Final Blood 08/06/22 12:12 Urine Culture - Preliminary Urine,Catheterized Assessment and Plan (1) UTI (urinary tract infection) Status: Acute Code(s): N39.0 - URINARY TRACT INFECTION, SITE NOT SPECIFIED SNOMED Code(s): 83822576 Plan: 1patient was in the hospital mental status changes likely multifactorial patient did have significant positive UA a component of gram-negative urinary tract infection not entirely excluded however the urine is currently showing Enterococcus. 2positive blood culture with staph epi likely skin contamination. 3patient with multiple antibiotic allergies that would limit the number of antibiotics safe to use. 4discontinue Rocephin start the patient on vancomycin to cover for the Enterococcus as patient is allergic to penicillin. 5dry protective dressing to the sacral area and heel protector bilateral heel with a pressure ulcer. We will follow on clinical condition and cultures to further adjust medication if needed Thank you for this consultation will follow this patient along with you Time with Patient: Greater than 30
[2022-08-07] MEDS ORDERED: VANCOMYCIN 1,500 MG in SODIUM CHLORIDE 0.9% 500 ML 500 ML IVPB ONE (23:45)
--- NOTE | 2022-08-08 02:48 | PN ---
PROGRESS NOTE DATE OF SERVICE: 08/07/2022 SUBJECTIVE: This 77-year-old woman was admitted with change in mental status, also had some dehydration, diminished p.o. intake also. No chest pain. No palpitations. Cultures are showing coagulase-negative Staph from the blood culture on 08/26. OBJECTIVE: VITAL SIGNS: Pulse is 60, blood pressure 170/70, respirations 17. HEENT: Conjunctivae normal. NECK: No jugular venous distention. CARDIOVASCULAR: S1, S2. RESPIRATIONS: Breath sounds diminished at the bases. A few scattered rhonchi. ABDOMEN: Soft. NERVOUS SYSTEM: Diffusely weak. LABS: Reviewed. ASSESSMENT: 1. Fever, change in mental status, rule out sepsis, coagulase-negative Staph from the blood 08/26. 2. Possible urinary tract infection. 3. Diminished p.o. intake and dehydration. 4. Gait dysfunction. 5. Hypertension. 6. Hyperlipidemia. 7. Multiple medical issues. 8. History of coronary artery disease, coronary artery bypass grafting. MMODL / IJN: [id number] /
--- NOTE | 2022-08-08 02:48 | PN ---
PROGRESS NOTE DATE OF SERVICE: 08/07/2022 ADDENDUM: This 77-year-old woman who was admitted with UTI also had coag-negative Staph grown from the blood culture. The patient is on Rocephin. I recommend repeat cultures and also consult Dr. Santos for possible sepsis and also do a repeat set of cultures as well. MMODL / IJN: [id number] /
[2022-08-08] MEDS: SODIUM CHLORIDE 0.9% 1,000 ML IV SCH (07:54)
[2022-08-08] MEDS: hydrALAZINE HCL 25 MG TAB PO SCH ×2 (08:17→21:01)
[2022-08-08] MEDS: MULTIVITAMINS, THERA 1 EACH TAB PO SCH (08:17)
[2022-08-08] MEDS: ASPIRIN 81 MG PO SCH (08:17)
[2022-08-08] MEDS: FUROSEMIDE 40 MG TAB PO SCH (08:17)
[2022-08-08] MEDS: amLODIPine 10 MG TAB PO SCH (08:17)
[2022-08-08] MEDS: DOCUSATE 100 MG CAP PO SCH ×2 (08:17→21:01)
[2022-08-08] MEDS: SODIUM BICARBONATE TAB 650 MG TAB PO SCH ×2 (08:17→21:02)
[2022-08-08] MEDS: ACETAMINOPHEN TAB 325 MG TAB PO PRN ×2 (08:17→21:00)
[2022-08-08] MEDS: FOLIC ACID 1 MG TAB PO SCH (08:17)
[2022-08-08] MEDS: LIDOCAINE VISCOUS 2% 15 ML CUP MUCOUS MEM SCH ×2 (08:18→21:00)
[2022-08-08] MEDS: POTASSIUM CHLORIDE ER 20 MEQ TAB.ER PO SCH ×3 (08:31→17:14)
[2022-08-08 09:13] LABS: BUN/Creat Ratio 16.38 Ratio (12.00-20.00); Blood Urea Nitrogen 13.1 mg/dL (9.0-27.0); Calcium 9.6 mg/dL (8.7-10.3); Non-African American GFR(CKD) 71.6 (60.0-200.0); Potassium 3.1 mmol/L (3.5-5.5)
[2022-08-08 09:57] LABS: Basophils % (A) 1.1 %; Eosinophils # (A) 0.88 X 10*3/uL (0.04-0.35); Eosinophils % (A) 10.1 %; HGB 10.5 g/dL (12.0-15.0); Immature Grans, Automated 0.2 %; Lymphocytes # (A) 1.84 X 10*3/uL (0.90-5.00); Lymphocytes % (A) 21.1 %; MCH 27.9 pg (27.0-32.0); MCHC 32.8 g/dL (32.0-37.0); MCV 85.1 fL (80.0-97.0); Mean Platelet Volume 13.6 fL (9.5-12.2); Monocytes # (A) 0.75 X 10*3/uL (0.20-1.00); Monocytes % (A) 8.6 %; NRBC Per 100 WBC 0 /100 WBCS (0.0-0.0); Neutrophils # (A) 5.15 X 10*3/uL (1.80-7.70); Neutrophils % (A) 58.9 %; Platelet Count 131 X 10*3/uL (140-440); RBC 3.76 X 10*6/uL (4.10-5.20); RDW 16.7 % (11.5-14.5); WBC 8.74 X 10*3/uL (4.50-10.00)
[2022-08-08] MEDS ORDERED: PREGABALIN 100 MG CAP PO SCH (10:00)
[2022-08-08] MEDS: SERTRALINE 50 MG TAB PO SCH (10:14)
[2022-08-08 10:55] VITALS: BMI 31.8
[2022-08-08] MEDS ORDERED: Potassium Replacement Protocol 1 EACH MISC MISCELLANE PRN (12:18)
[2022-08-08] MEDS ORDERED: HYDROcodone/APAP 5-325MG 1 EACH TAB PO PRN ×2 (12:21→12:58)
[2022-08-08] MEDS: PREGABALIN 75 MG CAP PO SCH ×2 (14:31→21:01)
[2022-08-08] MEDS: VANCOMYCIN 1,500 MG in SODIUM CHLORIDE 0.9% 500 ML 500 ML IVPB SCH (14:31)
--- NOTE | 2022-08-08 16:19 | CDI ---
Documentation Clarification Form Date: 08/08/2022 04:03:11 PM From: Gardenia Fletcher RN CCDS Admit Date: 08/06/2022 01:57:00 PM Patient Name: Alyssa Roca Visit Number: [id number] Discharge Date: ATTENTION: The Clinical Documentation Specialists (CDI) and [facility] Coding Staff appreciate your assistance in clarifying documentation. Please respond to the clarification below the line at the bottom and electronically sign. The CDI & [facility] Coding staff will review the response and follow-up if needed. Please note: Queries are made part of the Legal Health Record. If you have any questions, please contact the author of this message via ITS. Dr. Abhijit Bell Your patient has the documented symptom of Mental Status 08/06, H&P. Additional clarification regarding the etiology/cause of this symptom is requested. History/Risk Factors: 77-year-old female presents to the ED for change in mental status, UTI is expected. Medical History: HTN, HLD, CAD with CABG. 08/06, H&P. Clinical Indicators: Labs, 08/06 Hgb 11.3; Platelet Count 137; Cr 1.22; Albumin 3.1 Urine culture, 08/06: Group D Enterococcus CXR, 08/06: No evidence for acute pulmonary disease. Brain CT, 08/06: No acute intracranial hemorrhage or midline shift. There is mild to moderate diffuse cerebral atrophy redemonstrated. Treatment: 08/06 0.9NS 500cc IV Bolus x 1; 08/06 Ceftriaxone IVPB x 1; 08/07 Ceftriaxone IVPB x 1; 08/07 Vancomycin IVPB x1; 08/08 current Vancomycin IVPB Q16H. Please clarify the etiology of the symptom of Altered Mental Status: [ ] Metabolic Encephalopathy due to UTI [ ] Other condition (please specify) [ ] Unable to determine 08/[address] Bell "Change in mental status, acute metabolic encephalopathy" (Template Last Revised: September 2020) MTDD
--- NOTE | 2022-08-08 16:39 | P.PN ---
Subjective Progress Note Date: 08/08/22 Principal diagnosis: Urinary tract infection and positive blood culture Patient is a 77-year-old female halfway resident patient was sent to the ER yesterday afternoon for evaluation of mental status changes weakness and failure to thrive apparently patient has been declining over the last 2 weeks with decreased oral intake not drinking and unable to care for herself, patient did have positive the concerning for symptomatic urinary tract infection on today's evaluation that is 08/08/2022, the patient denies having any fever or chills, the patient is slightly more awake and alert up in the chair and is on room air denies any chest pain or cough no abdominal pain and no diarrhea Objective - Vital Signs Vital signs: Vital Signs Temp 99.7 F H 08/08/22 13:56 Pulse 67 08/08/22 13:56 Resp 16 08/08/22 13:56 BP 107/67 08/08/22 13:56 Pulse Ox 98 08/08/22 08:00 FiO2 Intake & Output 08/07/22 08/08/22 08/08/22 18:59 06:59 18:59 Output Total 401 1000 1 Balance -401 -1000 -1 Weight 81.647 kg Output: Urine 400 1000 Stool 1 1 Other: Voiding Method Incontinent External Catheter External Catheter External Catheter # Bowel Movements 1 - Exam GENERAL DESCRIPTION: An elderly female lying in bed in no distress RESPIRATORY SYSTEM: Unlabored breathing , decreased breath sounds at bases HEART: S1 S2 regular rate and rhythm , ABDOMEN: Soft , no tenderness EXTREMITIES: No edema feet - Labs CBC & Chem 7: 08/08/22 05:54 08/08/22 05:54 Labs: Abnormal Lab Results - Last 24 Hours (Table) 08/08/22 08/08/22 Range/Units 05:54 05:54 RBC 3.76 L (4.10-5.20) X 10*6/uL Hgb 10.5 L (12.0-15.0) g/dL Hct 32.0 L (37.2-46.3) % RDW 16.7 H (11.5-14.5) % Plt Count 131 L (140-440) X 10*3/uL MPV 13.6 H (9.5-12.2) fL Eosinophils # 0.88 H (0.04-0.35) X 10*3/uL Potassium 3.1 L (3.5-5.5) mmol/L Carbon Dioxide 18.0 L (20.0-27.5) mmol/L Microbiology - Last 24 Hours (Table) 08/07/22 08:17 Blood Culture Gram Stain - Preliminary Blood Blood Culture - Preliminary Coagulase Negative Staph 08/07/22 14:10 Blood Culture Gram Stain - Preliminary Blood Blood Culture - Preliminary Coagulase Negative Staph 08/06/22 12:12 Urine Culture - Preliminary Urine,Catheterized Group D Enterococcus Assessment and Plan (1) Positive blood culture Current Visit: Yes Status: Acute Code(s): R78.81 - BACTEREMIA SNOMED Code(s): 564157438 (2) UTI (urinary tract infection) Current Visit: Yes Status: Acute Code(s): N39.0 - URINARY TRACT INFECTION, SITE NOT SPECIFIED SNOMED Code(s): 02256907 Plan: 1patient was in the hospital mental status changes likely multifactorial patient did have significant positive UA a component of gram-negative urinary tract infection not entirely excluded however the urine is currently showing Enterococcus. 2positive blood culture with staph epi likely skin contamination blood cultures will be repeated document clearance of bacteremia. 3patient with multiple antibiotic allergies that would limit the number of antibiotics safe to use. 4patient to continue with vancomycin to cover for the Enterococcus as patient is allergic to penicillin. 5dry protective dressing to the sacral area and heel protector bilateral heel with a pressure ulcer. Family the bedside questions concerned were answered Time with Patient: Less than 30
[2022-08-08] MEDS: MIRTAZAPINE 15 MG TAB PO SCH (21:01)
[2022-08-09] MEDS: SODIUM CHLORIDE 0.9% 1,000 ML IV SCH ×2 (03:07→10:41)
--- NOTE | 2022-08-09 05:46 | PN ---
PROGRESS NOTE DATE OF SERVICE: 08/08/2022 SUBJECTIVE: This -year-old woman was admitted with change in mental status, acute UTI, is being closely monitored. The patient is on multiple pain medications also. The patient is complaining of diffuse aches and potassium is 3.0. Multiple consultants are following the patient closely. The final culture showed coag-negative Staph and the blood cultures more than once and group D Enterococcus in the urine culture. PAST MEDICAL HISTORY: Reviewed. CURRENT MEDICATIONS: Reviewed include DuoNeb, dose and rest of medication noted. PHYSICAL EXAMINATION: VITAL SIGNS: Pulse is 65, blood pressure 170/70, respirations 16. HEENT: Conjunctivae normal. NECK: No JVD. CARDIOVASCULAR: S1, S2. RESPIRATIONS: Breath sounds diminished at the bases. Scattered rhonchi. ABDOMEN: Soft. LEGS: No edema. NERVOUS SYSTEM: Diffusely weak. LABS: Reviewed. ASSESSMENT: 1. Acute urinary tract infection with group D Enterococcus. 2. Coagulase-negative Staph from the blood x2. 3. Change in mental status, acute metabolic encephalopathy. 4. Diminished p.o. intake and dehydration. 5. Gait dysfunction. 6. Diffuse aches and pains and chronic pain syndrome. 7. Hypertension. 8. Hyperlipidemia. 9. History of coronary artery disease, coronary artery bypass grafting. 10.Multiple medical issues. RECOMMENDATIONS AND DISCUSSION: Recommend to continue current management and symptomatic treatment. Otherwise, at this time, I recommend symptomatic treatment. We will initiate pain medications slowly. Monitor closely. Otherwise, repeat labs. Await final cultures. Repeat cultures. Continue with antibiotics. Prognosis guarded. We will monitor closely with Dr. Santos. The patient is also on vancomycin. MMODL / IJN: [id number] / [facility] HOSPITALValdemar
[2022-08-09] MEDS: FUROSEMIDE 40 MG TAB PO SCH (08:02)
[2022-08-09] MEDS: ASPIRIN 81 MG PO SCH (08:02)
[2022-08-09] MEDS: hydrALAZINE HCL 25 MG TAB PO SCH ×2 (08:02→21:40)
[2022-08-09] MEDS: FOLIC ACID 1 MG TAB PO SCH (08:03)
[2022-08-09] MEDS: amLODIPine 10 MG TAB PO SCH (08:03)
[2022-08-09] MEDS: SERTRALINE 50 MG TAB PO SCH (08:03)
[2022-08-09] MEDS: SODIUM BICARBONATE TAB 650 MG TAB PO SCH ×2 (08:03→21:39)
[2022-08-09] MEDS: LIDOCAINE VISCOUS 2% 15 ML CUP MUCOUS MEM SCH ×2 (08:14→21:22)
[2022-08-09] MEDS: POTASSIUM CHLORIDE ER 20 MEQ TAB.ER PO SCH (08:16)
[2022-08-09] MEDS: MULTIVITAMINS, THERA 1 EACH TAB PO SCH (08:18)
[2022-08-09] MEDS: DOCUSATE 100 MG CAP PO SCH ×2 (08:18→21:22)
[2022-08-09] MEDS: ACETAMINOPHEN TAB 325 MG TAB PO PRN (10:24)
[2022-08-09] MEDS: VANCOMYCIN 1,500 MG in SODIUM CHLORIDE 0.9% 500 ML 500 ML IVPB SCH ×2 (10:38→21:41)
--- NOTE | 2022-08-09 11:00 | CDI ---
Documentation Clarification Form Date: 08/09/2022 10:30:00 AM From: Gardenia Fletcher RN CCDS Admit Date: 08/06/2022 01:57:00 PM Patient Name: Alyssa Roca Visit Number: [id number] Discharge Date: ATTENTION: The Clinical Documentation Specialists (CDI) and [facility] Coding Staff appreciate your assistance in clarifying documentation. Please respond to the clarification below the line at the bottom and electronically sign. The CDI & [facility] Coding staff will review the response and follow-up if needed. Please note: Queries are made part of the Legal Health Record. If you have any questions, please contact the author of this message via ITS. Dr. Abhijit Bell The patient presented with the following clinical indicators. Additional clarification regarding the etiology/cause of the clinical indicators is requested. History/Risk Factors: 77-year-old female presents to the ED with a fever and change in mental status. Medical History: HTN, CAD with CABG and HLD. 08/06, H&P. Clinical Indicators: WBC: 08/06 Wbc 10.5 Lactic acid: 08/06 0.9 Blood cultures: 08/06 Gram positive Final: 08/07 08/07 Gram Positive Coagulase Negative Staph 08/08 Urine culture: 08/06 Enterococcus faecalis Vitals signs: 08/06 B/P 150/55; HR 65; Temp 97.0 F Oral; RR 14; SpO2 97% room air ID Note: 08/08 Positive blood culture with staph epi likely skin contamination blood cultures will be repeated document clearance of bacteremia. Treatment: ID Consult: See above Antibiotics: 08/08 08/09 Vancomycin IVPB Q16HR; 08/06 Ceftriaxone IVPB x 1; 08/07 Ceftriaxone IVPB Q24HR discontinued after one dose. IV Bolus: 08/08 0.9NS 500cc bolus In your professional opinion, please clarify if these findings signify one of the following conditions: [ ] Sepsis POA [ ] Sepsis ruled out [ ] Other, please specify [ ] Unable to determine SIRS Criteria: 2 or more of the following may indicate SIRS -Temperature < 96.8F (36C) or > 101.0F (38.3C) -Heart Rate > 90 bpm -Respiratory Rate > 20 breaths/min or PaCO2 < 32 mmHg -White Blood Cell Count > 12,000 or < 4,000 cells/mm3 or > 10% bands (Template Last Reviewed: September 2020) Sepsis POA MTDD
--- NOTE | 2022-08-09 12:15 | P.PN ---
Subjective Progress Note Date: 08/09/22 Principal diagnosis: Urinary tract infection and positive blood culture Patient is a 77-year-old female retirement resident patient was sent to the ER yesterday afternoon for evaluation of mental status changes weakness and failure to thrive apparently patient has been declining over the last 2 weeks with decreased oral intake not drinking and unable to care for herself, patient did have positive the concerning for symptomatic urinary tract infection on today's evaluation that is 08/09/2022, the patient remains to be afebrile, the patient is breathing comfortably on room air and is sitting up in the chair, the patient denies having any chest pain or cough no abdominal pain no diarrhea Objective - Vital Signs Vital signs: Vital Signs Temp 97.7 F 08/09/22 07:42 Pulse 66 08/09/22 07:42 Resp 17 08/09/22 07:42 BP 131/61 08/09/22 07:42 Pulse Ox 93 L 08/09/22 07:42 FiO2 Intake & Output 08/08/22 08/09/22 08/09/22 18:59 06:59 18:59 Intake Total 100 Output Total 302 750 Balance -302 -650 Weight 81.647 kg Intake: Oral 100 Output: Urine 300 750 Stool 2 Other: Voiding Method External Catheter External Catheter # Bowel Movements 1 - Exam GENERAL DESCRIPTION: An elderly female lying in bed in no distress RESPIRATORY SYSTEM: Unlabored breathing , decreased breath sounds at bases HEART: S1 S2 regular rate and rhythm , ABDOMEN: Soft , no tenderness EXTREMITIES: No edema feet - Labs CBC & Chem 7: 08/08/22 05:54 08/09/22 06:19 Labs: Microbiology - Last 24 Hours (Table) 08/06/22 12:12 Urine Culture - Final Urine,Catheterized Enterococcus faecalis 08/07/22 08:17 Blood Culture Gram Stain - Preliminary Blood Blood Culture - Preliminary Coagulase Negative Staph 08/07/22 14:10 Blood Culture Gram Stain - Preliminary Blood Blood Culture - Preliminary Coagulase Negative Staph Assessment and Plan (1) Positive blood culture Current Visit: Yes Status: Acute Code(s): R78.81 - BACTEREMIA SNOMED Code(s): 401318366 (2) UTI (urinary tract infection) Current Visit: Yes Status: Acute Code(s): N39.0 - URINARY TRACT INFECTION, SITE NOT SPECIFIED SNOMED Code(s): 38266981 Plan: 1patient was in the hospital mental status changes likely multifactorial patient did have significant positive UA a component of gram-negative urinary tract infection not entirely excluded however the urine is currently showing Enterococcus. 2positive blood culture with staph epi likely skin contamination blood cultures will be repeated document clearance of bacteremia. 3patient with multiple antibiotic allergies that would limit the number of antibiotics safe to use. 4patient seemed to have show some clinical improvement and we'll continue with vancomycin to cover for the Enterococcus as patient is allergic to penicillin. 5dry protective dressing to the sacral area and heel protector bilateral heel with a pressure ulcer. Time with Patient: Less than 30
[2022-08-09] MEDS: PREGABALIN 75 MG CAP PO SCH ×2 (14:43→21:39)
[2022-08-09] MEDS: MIRTAZAPINE 15 MG TAB PO SCH (21:39)
--- NOTE | 2022-08-10 05:50 | PN ---
PROGRESS NOTE DATE OF SERVICE: 08/09/2022 SUBJECTIVE: This is a 77-year-old woman who was admitted with possible UTI with sepsis present on admission. Also had a coag-negative staph on multiple cultures. The patient on antibiotics. Sensorium has slightly improved. The patient complaining of pain. Blood cultures could be contaminant per Infectious Disease. OBJECTIVE: VITAL SIGNS: Pulse is 66, blood pressure 130/67, respirations 17. CHEST: Clear to auscultation. CARDIOVASCULAR: S1, S2. ABDOMEN: Soft. NERVOUS SYTEM: No focal deficits. LABORATORY DATA: Reviewed. ASSESSMENT: 1. Acute urinary tract infection with Enterococcus faecalis, vancomycin sensitive. 2. Coagulase-negative Staph with blood cultures x2, probably contaminant per ID. 3. Change in mental status, acute metabolic encephalopathy. 4. Diminished p.o. intake and dehydration. 5. Gait dysfunction. 6. Diffuse aches and pains and chronic pain syndrome. 7. Hypertension. 8. Multiple medical issues. RECOMMENDATIONS AND DISCUSSION: This is a 77-year-old woman, who presented with multiple complex medical issues. We will monitor the patient closely. Continue with antibiotics. We will repeat cultures being awaited. Closely follow with Infectious Disease. Pain management. Avoid strong narcotics. I had a detailed discussion with Amaris, the daughter yesterday and continue to monitor and follow up with Dr. Chiu after discharge in the outpatient. MMODL / IJN: [id number] /
[2022-08-10] MEDS: POTASSIUM CHLORIDE ER 20 MEQ TAB.ER PO SCH (09:03)
[2022-08-10] MEDS: SERTRALINE 50 MG TAB PO SCH (09:03)
[2022-08-10] MEDS: LIDOCAINE VISCOUS 2% 15 ML CUP MUCOUS MEM SCH ×2 (09:04→21:52)
[2022-08-10] MEDS: hydrALAZINE HCL 25 MG TAB PO SCH ×2 (09:04→21:52)
[2022-08-10] MEDS: FOLIC ACID 1 MG TAB PO SCH (09:04)
[2022-08-10] MEDS: ASPIRIN 81 MG PO SCH (09:04)
[2022-08-10] MEDS: SODIUM BICARBONATE TAB 650 MG TAB PO SCH ×2 (09:04→21:52)
[2022-08-10] MEDS: amLODIPine 10 MG TAB PO SCH (09:04)
[2022-08-10] MEDS: ACETAMINOPHEN TAB 325 MG TAB PO PRN (09:04)
[2022-08-10] MEDS: FUROSEMIDE 40 MG TAB PO SCH (09:04)
[2022-08-10] MEDS: DOCUSATE 100 MG CAP PO SCH ×2 (09:05→21:52)
[2022-08-10] MEDS: MULTIVITAMINS, THERA 1 EACH TAB PO SCH (09:05)
--- NOTE | 2022-08-10 11:32 | P.PN ---
Subjective Progress Note Date: 08/10/22 Principal diagnosis: Urinary tract infection and positive blood culture Patient is a 77-year-old female custodial resident patient was sent to the ER yesterday afternoon for evaluation of mental status changes weakness and failure to thrive apparently patient has been declining over the last 2 weeks with decreased oral intake not drinking and unable to care for herself, patient did have positive the concerning for symptomatic urinary tract infection on today's evaluation that is 08/10/2022, the patient continues to be afebrile, the patient is breathing comfortably on room air , the patient denies having any chest pain or cough , the patient denies nausea no vomiting no abdominal pain no diarrhea Objective - Vital Signs Vital signs: Vital Signs Temp 98.0 F 08/10/22 08:38 Pulse 64 08/10/22 08:38 Resp 17 08/10/22 08:38 BP 179/76 08/10/22 08:38 Pulse Ox 95 08/10/22 08:38 FiO2 Intake & Output 08/09/22 08/10/22 08/10/22 18:59 06:59 18:59 Output Total 750 Balance -750 Output: Urine 750 Other: Voiding Method External Catheter External Catheter External Catheter - Exam GENERAL DESCRIPTION: An elderly female lying in bed in no distress RESPIRATORY SYSTEM: Unlabored breathing , decreased breath sounds at bases HEART: S1 S2 regular rate and rhythm , ABDOMEN: Soft , no tenderness EXTREMITIES: No edema feet - Labs CBC & Chem 7: 08/08/22 05:54 08/09/22 06:19 Labs: Microbiology - Last 24 Hours (Table) 08/07/22 14:10 Blood Culture Gram Stain - Final Blood Blood Culture - Final Staphylococcus haemolyticus Assessment and Plan (1) Positive blood culture Current Visit: Yes Status: Acute Code(s): R78.81 - BACTEREMIA SNOMED Code(s): 525319048 (2) UTI (urinary tract infection) Current Visit: Yes Status: Acute Code(s): N39.0 - URINARY TRACT INFECTION, SITE NOT SPECIFIED SNOMED Code(s): 72496386 Plan: 1patient was in the hospital mental status changes likely multifactorial patient did have significant positive UA a component of gram-negative urinary tract infection not entirely excluded however the urine is currently showing Enterococcus. 2positive blood culture with staph epi likely skin contamination blood cultures has been repeated document clearance of bacteremia. 3patient with multiple antibiotic allergies that would limit the number of antibiotics safe to use. 4dry protective dressing to the sacral area and heel protector bilateral heel with a pressure ulcer. 5-patient seemed to have show some clinical improvement , however the patient has lost for IV and nursing staff is not able to place another IV patient ALLERGIC to penicillin we will start the patient on Macrobid and watching her clinical course closely. Time with Patient: Less than 30
[2022-08-10 12:06] LABS: African American GFR (CKD) 95.1 (60.0-200.0); Albumin 2.9 g/dL (3.8-4.9); Albumin/Globulin Ratio 0.95 (1.60-3.17); Anion Gap 11.5 mmol/L (10.00-18.00); BUN/Creat Ratio 11.31 Ratio (12.00-20.00); Blood Urea Nitrogen 8.1 mg/dL (9.0-27.0); Calcium 9.6 mg/dL (8.7-10.3); Carbon Dioxide 20.7 mmol/L (20.0-27.5); Potassium 3.2 mmol/L (3.5-5.5); Total Bilirubin 0.3 mg/dL (0.30-1.20); Total Protein 5.9 g/dL (6.2-8.2)
[2022-08-10 12:12] LABS: Basophils % (A) 1.3 %; Eosinophils # (A) 0.51 X 10*3/uL (0.04-0.35); Eosinophils % (A) 6.5 %; HCT 33.6 % (37.2-46.3); HGB 10.5 g/dL (12.0-15.0); Immature Grans, Automated 0.3 %; Lymphocytes # (A) 1.54 X 10*3/uL (0.90-5.00); Lymphocytes % (A) 19.6 %; MCH 27.8 pg (27.0-32.0); MCHC 31.3 g/dL (32.0-37.0); MCV 88.9 fL (80.0-97.0); Mean Platelet Volume 13.1 fL (9.5-12.2); Monocytes # (A) 0.71 X 10*3/uL (0.20-1.00); NRBC Per 100 WBC 0 /100 WBCS (0.0-0.0); Neutrophils # (A) 4.98 X 10*3/uL (1.80-7.70); Neutrophils % (A) 63.3 %; Platelet Count 126 X 10*3/uL (140-440); RBC 3.78 X 10*6/uL (4.10-5.20); RDW 16.8 % (11.5-14.5); WBC 7.86 X 10*3/uL (4.50-10.00)
--- NOTE | 2022-08-10 12:27 | P.PN ---
Subjective This is a pleasant 77 years old female with multiple medical problems presents with metabolic encephalopathy suspected secondary to infection and sepsis, she has acute urinary tract infections and bacteremia with staph hemolyticus growing in the blood, Patient currently covered with IV vancomycin with normalsaline at 75 mL/h with monitor in her kidney function closely. Also she is on oral Lasix. Infectious disease team following the patient closely CT of the brain negative Patient today is fully awake and oriented and she knows in the hospital, however she has no insight into her illness, patient was updated about her diagnosis and management plan. she still complaining from some dysuria and generalized weakness bladder scan is requested Objective - Vital Signs Vital signs: Vital Signs Temp 98.0 F 08/10/22 08:38 Pulse 64 08/10/22 08:38 Resp 17 08/10/22 08:38 BP 179/76 08/10/22 08:38 Pulse Ox 95 08/10/22 08:38 FiO2 Intake & Output 08/09/22 08/10/22 08/10/22 18:59 06:59 18:59 Output Total 750 Balance -750 Output: Urine 750 Other: Voiding Method External Catheter External Catheter External Catheter - Exam GENERAL: The patient is alert and oriented x3, not in any acute distress. Well developed, well nourished. HEENT: Pupils are round and equally reacting to light. EOMI. No scleral icterus. No conjunctival pallor. Normocephalic, atraumatic. No pharyngeal erythema. No thyromegaly. CARDIOVASCULAR: S1 and S2 present. No murmurs, rubs, or gallops. PULMONARY: Chest is clear to auscultation, no wheezing or crackles. ABDOMEN: Soft, nontender, nondistended, normoactive bowel sounds. No palpable organomegaly. MUSCULOSKELETAL: No joint swelling or deformity. EXTREMITIES: No cyanosis, clubbing, or pedal edema. NEUROLOGICAL: Gross neurological examination did not reveal any focal deficits. SKIN: No rashes. no petechiae. - Labs CBC & Chem 7: 08/10/22 08:10 08/10/22 08:10 Labs: Abnormal Lab Results - Last 24 Hours (Table) 08/10/22 08/10/22 Range/Units 08:10 08:10 RBC 3.78 L (4.10-5.20) X 10*6/uL Hgb 10.5 L (12.0-15.0) g/dL Hct 33.6 L (37.2-46.3) % MCHC 31.3 L (32.0-37.0) g/dL RDW 16.8 H (11.5-14.5) % Plt Count 126 L (140-440) X 10*3/uL MPV 13.1 H (9.5-12.2) fL Eosinophils # 0.51 H (0.04-0.35) X 10*3/uL Potassium 3.2 L (3.5-5.5) mmol/L BUN 8.1 L (9.0-27.0) mg/dL BUN/Creatinine Ratio 11.31 L (12.00-20.00) Ratio Total Protein 5.9 L (6.2-8.2) g/dL Albumin 2.9 L (3.8-4.9) g/dL Albumin/Globulin Ratio 0.95 L (1.60-3.17) g/dL Microbiology - Last 24 Hours (Table) 08/07/22 14:10 Blood Culture Gram Stain - Final Blood Blood Culture - Final Staphylococcus haemolyticus Assessment and Plan Assessment: Acute urinary tract infection, secondary to enterococcus Staph mellitus bacteremia Metabolic encephalopathy secondary to above Hypertension Hyperlipidemia History of osteoarthritis History of coronary artery disease Plan: Continue with antibiotics as per ID team. Currently on IV vancomycin Continue with gentle hydration ID team consult Labs and medication were reviewed.. Continue same treatment. Continue with symptomatic treatment. Resume home medication. Monitor labs and vitals. DVT and GI prophylaxis. Further recommendations as per clinical course of the patient DVT prophylaxis: Subcutaneous heparin GI Prophylaxis: Pepcid PT/OT: Pending Prognosis is guarded
[2022-08-10] MEDS ORDERED: VANCOMYCIN TROUGH DUE 1 EACH MISC MISCELLANE ONE (13:00)
[2022-08-10] MEDS: NITROFURANTOIN MONOHYD/M-CRYST 100 MG CAP PO SCH ×2 (14:10→21:52)
[2022-08-10] MEDS: PREGABALIN 75 MG CAP PO SCH ×2 (16:14→21:52)
[2022-08-10] MEDS: SODIUM CHLORIDE 0.9% 1,000 ML IV SCH ×2 (16:15→16:16)
[2022-08-10] MEDS ORDERED: FAMOTIDINE 20 MG/2 ML VIAL IV SCH (21:00)
[2022-08-10] MEDS: FAMOTIDINE 20 MG TAB PO SCH (21:52)
[2022-08-10] MEDS: MIRTAZAPINE 15 MG TAB PO SCH (21:52)
[2022-08-10] MEDS: HEPARIN SODIUM,PORCINE/PF 5,000 UNIT/0.5 ML SYRINGE SQ SCH (21:52)
[2022-08-11] MEDS: SODIUM CHLORIDE 0.9% 1,000 ML IV SCH ×2 (00:46→19:38)
[2022-08-11 08:45] LABS: African American GFR (CKD) >90 (>60 ml/min/1.73 sqM); Anion Gap 5 mmol/L; Blood Urea Nitrogen 9 mg/dL (7-17); Calcium 9.2 mg/dL (8.4-10.2); Carbon Dioxide 22 mmol/L (22-30); Chloride 113 mmol/L (98-107); Glucose 91 mg/dL (74-99); Magnesium 1.7 mg/dL (1.6-2.3); Non-African American GFR(CKD) 82 (>60 ml/min/1.73 sqM); Potassium 3.7 mmol/L (3.5-5.1); Sodium 140 mmol/L (137-145)
[2022-08-11] MEDS ORDERED: ERGOCALCIFEROL 1,250 MCG (50,000 IU) CAPSULE PO SCH (09:00)
[2022-08-11] MEDS: FOLIC ACID 1 MG TAB PO SCH (10:02)
[2022-08-11] MEDS: SODIUM BICARBONATE TAB 650 MG TAB PO SCH ×2 (10:02→20:54)
[2022-08-11] MEDS: ASPIRIN 81 MG PO SCH (10:02)
[2022-08-11] MEDS: SERTRALINE 50 MG TAB PO SCH (10:02)
[2022-08-11] MEDS: FAMOTIDINE 20 MG TAB PO SCH ×2 (10:02→20:54)
[2022-08-11] MEDS: hydrALAZINE HCL 25 MG TAB PO SCH (10:02)
[2022-08-11] MEDS: DOCUSATE 100 MG CAP PO SCH ×2 (10:02→20:54)
[2022-08-11] MEDS: MULTIVITAMINS, THERA 1 EACH TAB PO SCH (10:02)
[2022-08-11] MEDS: amLODIPine 10 MG TAB PO SCH (10:02)
[2022-08-11] MEDS: FUROSEMIDE 40 MG TAB PO SCH (10:02)
[2022-08-11] MEDS: POTASSIUM CHLORIDE ER 20 MEQ TAB.ER PO SCH (10:03)
[2022-08-11] MEDS: NITROFURANTOIN MONOHYD/M-CRYST 100 MG CAP PO SCH ×2 (10:03→20:53)
[2022-08-11] MEDS: LIDOCAINE VISCOUS 2% 15 ML CUP MUCOUS MEM SCH ×2 (10:04→20:53)
[2022-08-11] MEDS: HEPARIN SODIUM,PORCINE/PF 5,000 UNIT/0.5 ML SYRINGE SQ SCH ×2 (10:04→20:54)
--- NOTE | 2022-08-11 13:38 | P.PN ---
Subjective This is a pleasant 77 years old female with multiple medical problems presents with metabolic encephalopathy suspected secondary to infection and sepsis, she has acute urinary tract infections and bacteremia with staph hemolyticus growing in the blood, Patient currently covered with IV vancomycin with normalsaline at 75 mL/h with monitor in her kidney function closely. Also she is on oral Lasix. Infectious disease team following the patient closely CT of the brain negative Patient today is fully awake and oriented and she knows in the hospital, however she has no insight into her illness, patient was updated about her diagnosis and management plan. she still complaining from some dysuria and generalized weakness bladder scan is requested 08/11/2022 Patient denies any specific symptoms, she thinks her weakness is improving, her dysuria is improving and she does not complain much. No fever. She remains on normal saline 75 mL/h and IV vancomycin Creatinine today 0.7. Patient is asking when she can go to [facility] Bladder scan is requested Objective - Vital Signs Vital signs: Vital Signs Temp 97.9 F 08/11/22 10:01 Pulse 63 08/11/22 10:01 Resp 18 08/11/22 09:00 BP 186/64 08/11/22 09:00 Pulse Ox 95 08/11/22 09:00 FiO2 Intake & Output 08/10/22 08/11/22 08/11/22 18:59 06:59 18:59 Output Total 2200 Balance -2200 Output: Urine 2200 Other: Voiding Method External Catheter External Catheter External Catheter # Voids 3 - Exam GENERAL: The patient is alert and oriented x3, not in any acute distress. Well developed, well nourished. HEENT: Pupils are round and equally reacting to light. EOMI. No scleral icterus. No conjunctival pallor. Normocephalic, atraumatic. No pharyngeal erythema. No thyromegaly. CARDIOVASCULAR: S1 and S2 present. No murmurs, rubs, or gallops. PULMONARY: Chest is clear to auscultation, no wheezing or crackles. ABDOMEN: Soft, nontender, nondistended, normoactive bowel sounds. No palpable organomegaly. MUSCULOSKELETAL: No joint swelling or deformity. EXTREMITIES: No cyanosis, clubbing, or pedal edema. NEUROLOGICAL: Gross neurological examination did not reveal any focal deficits. SKIN: No rashes. no petechiae. - Labs CBC & Chem 7: 08/10/22 08:10 08/11/22 07:53 Labs: Abnormal Lab Results - Last 24 Hours (Table) 08/11/22 Range/Units 07:53 Chloride 113 H (98-107) mmol/L Microbiology - Last 24 Hours (Table) 08/09/22 12:30 Blood Culture - Preliminary Blood No Growth after 24 hours 08/07/22 08:17 Blood Culture Gram Stain - Final Blood Blood Culture - Final Staph hominis sub sp. hominis Assessment and Plan Assessment: Acute urinary tract infection, secondary to enterococcus Staph mellitus bacteremia Metabolic encephalopathy secondary to above Hypertension Hyperlipidemia History of osteoarthritis History of coronary artery disease Plan: Continue with antibiotics as per ID team. Currently on IV vancomycin Continue with gentle hydration ID team consult Lower IV fluids to 50 mL/h and increase hydralazine to 50 mg twice a day Labs and medication were reviewed.. Continue same treatment. Continue with symptomatic treatment. Resume home medication. Monitor labs and vitals. DVT and GI prophylaxis. Further recommendations as per clinical course of the patient DVT prophylaxis: Subcutaneous heparin GI Prophylaxis: Pepcid PT/OT: LEANDRA Prognosis is guarded
--- NOTE | 2022-08-11 15:13 | P.PN ---
Subjective Progress Note Date: 08/11/22 Principal diagnosis: Urinary tract infection and positive blood culture Patient is a 77-year-old female care home resident patient was sent to the ER yesterday afternoon for evaluation of mental status changes weakness and failure to thrive apparently patient has been declining over the last 2 weeks with decreased oral intake not drinking and unable to care for herself, patient did have positive the concerning for symptomatic urinary tract infection on today's evaluation that is 08/11/2022, the patient remains to be afebrile, the patient is breathing comfortably on room air , the patient denies chest pain or cough , the patient denies nausea no vomiting no abdominal pain no diarrhea, patient is feeling better wants to go home Objective - Vital Signs Vital signs: Vital Signs Temp 97.9 F 08/11/22 10:01 Pulse 63 08/11/22 10:01 Resp 18 08/11/22 09:00 BP 186/64 08/11/22 09:00 Pulse Ox 95 08/11/22 09:00 FiO2 Intake & Output 08/10/22 08/11/22 08/11/22 18:59 06:59 18:59 Output Total 2200 Balance -2200 Output: Urine 2200 Other: Voiding Method External Catheter External Catheter External Catheter # Voids 3 - Exam GENERAL DESCRIPTION: An elderly female lying in bed in no distress RESPIRATORY SYSTEM: Unlabored breathing , decreased breath sounds at bases HEART: S1 S2 regular rate and rhythm , ABDOMEN: Soft , no tenderness EXTREMITIES: No edema feet - Labs CBC & Chem 7: 08/10/22 08:10 08/11/22 07:53 Labs: Abnormal Lab Results - Last 24 Hours (Table) 08/10/22 08/11/22 Range/Units 08:10 07:53 RBC 3.78 L (4.10-5.20) X 10*6/uL Hgb 10.5 L (12.0-15.0) g/dL Hct 33.6 L (37.2-46.3) % MCHC 31.3 L (32.0-37.0) g/dL RDW 16.8 H (11.5-14.5) % Plt Count 126 L (140-440) X 10*3/uL MPV 13.1 H (9.5-12.2) fL Eosinophils # 0.51 H (0.04-0.35) X 10*3/uL Chloride 113 H (98-107) mmol/L Microbiology - Last 24 Hours (Table) 08/09/22 12:30 Blood Culture - Preliminary Blood No Growth after 24 hours 08/07/22 08:17 Blood Culture Gram Stain - Final Blood Blood Culture - Final Staph hominis sub sp. hominis Assessment and Plan (1) Positive blood culture Current Visit: Yes Status: Acute Code(s): R78.81 - BACTEREMIA SNOMED Code(s): 651935783 (2) UTI (urinary tract infection) Current Visit: Yes Status: Acute Code(s): N39.0 - URINARY TRACT INFECTION, SITE NOT SPECIFIED SNOMED Code(s): 49125310 Plan: 1patient was in the hospital mental status changes likely multifactorial patient did have significant positive UA a component of gram-negative urinary tract infection not entirely excluded however the urine is currently showing Enterococcus. 2positive blood culture with staph epi likely skin contamination blood cultures has been repeated document clearance of bacteremia. 3patient with multiple antibiotic allergies that would limit the number of antibiotics safe to use. 4dry protective dressing to the sacral area and heel protector bilateral heel with a pressure ulcer. 5-patient seemed to have show some clinical improvement , however the patient has lost her IV and nursing staff is not able to place another IV patient ALLERGIC to penicillin , patient seemed to be doing well on Macrobid which should be continued for 7 days on discharge and close outpatient follow-up Time with Patient: Less than 30
[2022-08-11] MEDS: PREGABALIN 75 MG CAP PO SCH ×2 (15:21→20:54)
[2022-08-11] MEDS: MIRTAZAPINE 15 MG TAB PO SCH (20:54)
[2022-08-11] MEDS: hydrALAZINE HCL 50 MG TAB PO SCH (20:54)
[2022-08-12] MEDS ORDERED: cloNIDine 0.3 MG/24HR PATCH TRANSDERM SCH (06:00)
[2022-08-12 09:11] LABS: African American GFR (CKD) 97.5 (60.0-200.0); Anion Gap 10.9 mmol/L (10.00-18.00); BUN/Creat Ratio 12.57 Ratio (12.00-20.00); Blood Urea Nitrogen 8.8 mg/dL (9.0-27.0); Calcium 9.5 mg/dL (8.7-10.3); Carbon Dioxide 24.1 mmol/L (20.0-27.5); Magnesium 1.9 mg/dL (1.5-2.4); Non-African American GFR(CKD) 84.2 (60.0-200.0); Potassium 3.2 mmol/L (3.5-5.5)
[2022-08-12] MEDS: SERTRALINE 50 MG TAB PO SCH (09:41)
[2022-08-12] MEDS: MULTIVITAMINS, THERA 1 EACH TAB PO SCH (09:41)
[2022-08-12] MEDS: FUROSEMIDE 40 MG TAB PO SCH (09:41)
[2022-08-12] MEDS: amLODIPine 10 MG TAB PO SCH (09:41)
[2022-08-12] MEDS: SODIUM BICARBONATE TAB 650 MG TAB PO SCH ×2 (09:41→20:15)
[2022-08-12] MEDS: hydrALAZINE HCL 50 MG TAB PO SCH ×2 (09:41→20:15)
[2022-08-12] MEDS: POTASSIUM CHLORIDE ER 20 MEQ TAB.ER PO SCH (09:41)
[2022-08-12] MEDS: ASPIRIN 81 MG PO SCH (09:41)
[2022-08-12] MEDS: NITROFURANTOIN MONOHYD/M-CRYST 100 MG CAP PO SCH ×2 (09:41→20:15)
[2022-08-12] MEDS: DOCUSATE 100 MG CAP PO SCH ×2 (09:41→20:15)
[2022-08-12] MEDS: FOLIC ACID 1 MG TAB PO SCH (09:41)
[2022-08-12] MEDS: FAMOTIDINE 20 MG TAB PO SCH ×2 (09:41→20:15)
[2022-08-12] MEDS: HEPARIN SODIUM,PORCINE/PF 5,000 UNIT/0.5 ML SYRINGE SQ SCH ×2 (09:42→20:15)
[2022-08-12] MEDS: LIDOCAINE VISCOUS 2% 15 ML CUP MUCOUS MEM SCH ×2 (09:51→20:15)
[2022-08-12] MEDS ORDERED: hydrALAZINE HCL 20 MG/ML 1 ML VIAL IVP PRN (13:31)
[2022-08-12] MEDS ORDERED: FUROSEMIDE 40 MG TAB PO STA (13:32)
[2022-08-12] MEDS: PREGABALIN 75 MG CAP PO SCH ×2 (13:42→20:15)
--- NOTE | 2022-08-12 13:42 | P.PN ---
Subjective This is a pleasant 77 years old female with multiple medical problems presents with metabolic encephalopathy suspected secondary to infection and sepsis, she has acute urinary tract infections and bacteremia with staph hemolyticus growing in the blood, Patient currently covered with IV vancomycin with normalsaline at 75 mL/h with monitor in her kidney function closely. Also she is on oral Lasix. Infectious disease team following the patient closely CT of the brain negative Patient today is fully awake and oriented and she knows in the hospital, however she has no insight into her illness, patient was updated about her diagnosis and management plan. she still complaining from some dysuria and generalized weakness bladder scan is requested 08/11/2022 Patient denies any specific symptoms, she thinks her weakness is improving, her dysuria is improving and she does not complain much. No fever. She remains on normal saline 75 mL/h and IV vancomycin Creatinine today 0.7. Patient is asking when she can go to [facility] Bladder scan is requested 08/12/2022 Patient is awake and alert but little lethargic, she was confused last night, also her blood pressure was elevated with systolic 180-200, patient was not getting IV fluids his yesterday because she lost her IV line. We will increase her hydralazine dose and to 50 mg 3 times a day with close monitoring also IV hydralazine is ordered. Continue on clonidine patch 0.3 mg. She is currently covered with oral Macrobid and doing well. Then the patient denies chest pain or dyspnea, she follows commands, no urinary tract symptoms, however patient has evidence of urinary retention more than 550, I discussed with the patient and she agrees to place a Navarrete catheter. Also we will start her on Flomax. As per patient she had Navarrete catheter placed 2 months ago for similar recommendation will been discontinued. And we'll continue monitoring for now Objective - Vital Signs Vital signs: Vital Signs Temp 98.0 F 08/12/22 08:00 Pulse 63 08/12/22 08:00 Resp 17 08/12/22 08:00 BP 189/62 08/12/22 08:00 Pulse Ox 95 08/12/22 08:00 FiO2 Intake & Output 08/11/22 08/12/22 08/12/22 18:59 06:59 18:59 Intake Total 400 Output Total 600 550 Balance -200 -550 Intake: Oral 400 Output: Urine 600 550 Straight 550 Other: Voiding Method External Catheter External Catheter External Catheter # Voids 0 - Exam GENERAL: The patient is alert and oriented x3, not in any acute distress. Well developed, well nourished. HEENT: Pupils are round and equally reacting to light. EOMI. No scleral icterus. No conjunctival pallor. Normocephalic, atraumatic. No pharyngeal erythema. No thyromegaly. CARDIOVASCULAR: S1 and S2 present. No murmurs, rubs, or gallops. PULMONARY: Chest is clear to auscultation, no wheezing or crackles. ABDOMEN: Soft, nontender, nondistended, normoactive bowel sounds. No palpable organomegaly. MUSCULOSKELETAL: No joint swelling or deformity. EXTREMITIES: No cyanosis, clubbing, or pedal edema. NEUROLOGICAL: Gross neurological examination did not reveal any focal deficits. SKIN: No rashes. no petechiae. - Labs CBC & Chem 7: 08/10/22 08:10 08/12/22 03:25 Labs: Abnormal Lab Results - Last 24 Hours (Table) 08/12/22 Range/Units 03:25 Potassium 3.2 L (3.5-5.5) mmol/L BUN 8.8 L (9.0-27.0) mg/dL Microbiology - Last 24 Hours (Table) 08/09/22 12:30 Blood Culture - Preliminary Blood No Growth after 48 hours Assessment and Plan Assessment: Acute urinary tract infection, secondary to enterococcus, improving Staph mellitus bacteremia Acute urinary retention Metabolic encephalopathy secondary to above Hypertension, uncontrolled Hyperlipidemia History of osteoarthritis History of coronary artery disease Plan: Continue with antibiotics as per ID team. Currently on Macrobid Increase hydralazine and monitor blood pressure Discontinue IV fluid Start Navarrete catheter and Flomax with recommendation for outpatient follow-up with urologist (patient informed all these recommendations and she agrees) Discontinue IV fluid Possible discharge to [facility] for rehab. When she is ready ID team on the case Medication and labs revealed. Monitor labs and vitals. DVT and GI prophylaxis. Further recommendations as per clinical course of the patient DVT prophylaxis: Subcutaneous heparin GI Prophylaxis: Pepcid PT/OT: LEANDRA Prognosis is guarded I talked to her daughter Amaris at her work [phone] I discussed the case with her including the plans and management and she is agreeable
[2022-08-12] MEDS ORDERED: hydrALAZINE HCL 50 MG TAB PO SCH (16:00)
[2022-08-12] MEDS: MIRTAZAPINE 15 MG TAB PO SCH (20:15)
[2022-08-12] MEDS: SODIUM CHLORIDE 0.9% 1,000 ML IV SCH (22:05)
--- NOTE | 2022-08-12 23:01 | P.PN ---
Subjective Progress Note Date: 08/12/22 Principal diagnosis: Urinary tract infection and positive blood culture Patient is a 77-year-old female half-way resident patient was sent to the ER yesterday afternoon for evaluation of mental status changes weakness and failure to thrive apparently patient has been declining over the last 2 weeks with decreased oral intake not drinking and unable to care for herself, patient did have positive the concerning for symptomatic urinary tract infection on today's evaluation that is 08/12/2022, the patient continues to be afebrile, the patient is breathing comfortably on room air , the patient denies chest pain or cough , the patient denies nausea no vomiting no abdominal pain no diarrhea, no new symptom and wants to go home Objective - Vital Signs Vital signs: Vital Signs Temp 98.0 F 08/12/22 08:00 Pulse 63 08/12/22 08:00 Resp 17 08/12/22 08:00 BP 189/62 08/12/22 08:00 Pulse Ox 95 08/12/22 08:00 FiO2 Intake & Output 08/11/22 08/12/22 08/12/22 18:59 06:59 18:59 Intake Total 400 Output Total 600 550 Balance -200 -550 Intake: Oral 400 Output: Urine 600 550 Straight 550 Other: Voiding Method External Catheter External Catheter External Catheter # Voids 0 - Exam GENERAL DESCRIPTION: An elderly female lying in bed in no distress RESPIRATORY SYSTEM: Unlabored breathing , decreased breath sounds at bases HEART: S1 S2 regular rate and rhythm , ABDOMEN: Soft , no tenderness EXTREMITIES: No edema feet - Labs CBC & Chem 7: 08/10/22 08:10 08/12/22 03:25 Labs: Abnormal Lab Results - Last 24 Hours (Table) 08/12/22 Range/Units 03:25 Potassium 3.2 L (3.5-5.5) mmol/L BUN 8.8 L (9.0-27.0) mg/dL Microbiology - Last 24 Hours (Table) 08/09/22 12:30 Blood Culture - Preliminary Blood No Growth after 48 hours Assessment and Plan (1) Positive blood culture Current Visit: Yes Status: Acute Code(s): R78.81 - BACTEREMIA SNOMED Code(s): 446641882 (2) UTI (urinary tract infection) Current Visit: Yes Status: Acute Code(s): N39.0 - URINARY TRACT INFECTION, SITE NOT SPECIFIED SNOMED Code(s): 53593210 Plan: 1patient was in the hospital mental status changes likely multifactorial patient did have significant positive UA a component of gram-negative urinary tract infection not entirely excluded however the urine is currently showing Enterococcus. 2positive blood culture with staph epi likely skin contamination blood cultures repeat has been negative. 3patient with multiple antibiotic allergies that would limit the number of antibiotics safe to use. 4dry protective dressing to the sacral area and heel protector bilateral heel with a pressure ulcer. 5-patient has shown clinical improvement , currently on Macrobid because of no IV access, patient will continue with Macrobid 7 days on discharge and close outpatient follow-up Time with Patient: Less than 30
[2022-08-13] MEDS: amLODIPine 10 MG TAB PO SCH (08:38)
[2022-08-13] MEDS: FOLIC ACID 1 MG TAB PO SCH (08:38)
[2022-08-13] MEDS: SODIUM BICARBONATE TAB 650 MG TAB PO SCH (08:39)
[2022-08-13] MEDS: FUROSEMIDE 40 MG TAB PO SCH (08:39)
[2022-08-13] MEDS: MULTIVITAMINS, THERA 1 EACH TAB PO SCH (08:39)
[2022-08-13] MEDS: FAMOTIDINE 20 MG TAB PO SCH (08:39)
[2022-08-13] MEDS: POTASSIUM CHLORIDE ER 20 MEQ TAB.ER PO SCH (08:39)
[2022-08-13] MEDS: hydrALAZINE HCL 50 MG TAB PO SCH (08:39)
[2022-08-13] MEDS: HEPARIN SODIUM,PORCINE/PF 5,000 UNIT/0.5 ML SYRINGE SQ SCH (08:39)
[2022-08-13] MEDS: ASPIRIN 81 MG PO SCH (08:39)
[2022-08-13] MEDS: NITROFURANTOIN MONOHYD/M-CRYST 100 MG CAP PO SCH (08:39)
[2022-08-13] MEDS: SERTRALINE 50 MG TAB PO SCH (08:39)
[2022-08-13] MEDS: DOCUSATE 100 MG CAP PO SCH (08:39)
[2022-08-13] MEDS: LIDOCAINE VISCOUS 2% 15 ML CUP MUCOUS MEM SCH (08:40)
--- NOTE | 2022-08-13 12:21 | CDI ---
Documentation Clarification Form Date: 08/13/2022 11:58:45 AM From: Gardenia Fletcher RN CCDS Admit Date: 08/06/2022 01:57:00 PM Patient Name: Alyssa Roca Visit Number: [id number] Discharge Date: ATTENTION: The Clinical Documentation Specialists (CDI) and [facility] Coding Staff appreciate your assistance in clarifying documentation. Please respond to the clarification below the line at the bottom and electronically sign. The CDI & [facility] Coding staff will review the response and follow-up if needed. Please note: Queries are made part of the Legal Health Record. If you have any questions, please contact the author of this message via ITS. Dr. Bryant Chester Sepsis POA is documented Query, 08/09, but is not noted in subsequent documentation. Clarification is requested. History/Risk Factors: 77-year-old female presents to the ED with a fever and change in mental status. Medical History: HTN, CAD with CABG and HLD. 08/06, H&P. Clinical Indicators: WBC: 08/06 Wbc 10.5 Lactic acid: 08/06 0.9 Blood cultures: 08/06 Gram positive Final: 08/07 08/07 Gram Positive Coagulase Negative Staph 08/08 Urine culture: 08/06 Enterococcus faecalis Vitals signs: 08/06 B/P 150/55; HR 65; Temp 97.0 F Oral; RR 14; SpO2 97% room air ID Note: 08/08 Positive blood culture with staph epi likely skin contamination blood cultures will be repeated document clearance of bacteremia. Treatment: ID Consult: See above Antibiotics: 08/08 08/09 Vancomycin IVPB Q16HR; 08/06 Ceftriaxone IVPB x 1; 08/07 Ceftriaxone IVPB Q24HR discontinued after one dose; 08/07 Vancomycin IVPB x 1; 08/08 08/09 Vancomycin IVPB Q16H . IV Bolus: 08/08 0.9NS 500cc bolus In your professional opinion, please clarify if these findings signify one of the following conditions: Please clarify if the Sepsis is: [ ] Sepsis Ruled Out [ ] Sepsis POA [ ] Other condition, please specify [ ] Unable to determine (Template Last Revised: October 2020) no sepsis MTDD
[2022-08-13] MEDS ORDERED: POTASSIUM CHLORIDE ER 20 MEQ TAB.ER PO STA (13:09)
--- NOTE | 2022-08-13 13:34 | P.PN ---
Subjective This is a pleasant 77 years old female with multiple medical problems presents with metabolic encephalopathy suspected secondary to infection and sepsis, she has acute urinary tract infections and bacteremia with staph hemolyticus growing in the blood, Patient currently covered with IV vancomycin with normalsaline at 75 mL/h with monitor in her kidney function closely. Also she is on oral Lasix. Infectious disease team following the patient closely CT of the brain negative Patient today is fully awake and oriented and she knows in the hospital, however she has no insight into her illness, patient was updated about her diagnosis and management plan. she still complaining from some dysuria and generalized weakness bladder scan is requested 08/11/2022 Patient denies any specific symptoms, she thinks her weakness is improving, her dysuria is improving and she does not complain much. No fever. She remains on normal saline 75 mL/h and IV vancomycin Creatinine today 0.7. Patient is asking when she can go to [facility] Bladder scan is requested 08/12/2022 Patient is awake and alert but little lethargic, she was confused last night, also her blood pressure was elevated with systolic 180-200, patient was not getting IV fluids his yesterday because she lost her IV line. We will increase her hydralazine dose and to 50 mg 3 times a day with close monitoring also IV hydralazine is ordered. Continue on clonidine patch 0.3 mg. She is currently covered with oral Macrobid and doing well. Then the patient denies chest pain or dyspnea, she follows commands, no urinary tract symptoms, however patient has evidence of urinary retention more than 550, I discussed with the patient and she agrees to place a Navarrete catheter. Also we will start her on Flomax. As per patient she had Navarrete catheter placed 2 months ago for similar recommendation will been discontinued. And we'll continue monitoring for now 08/13/2022 Patient awake and alert today, she knows she the hospital she did date and the name of the president, she follows commands and she has insight into her illness, she does not look confused to me. However when I talked to the daughter she told me she was more confused last night which is could be secondary to delirium related to her infection and other medical problems. She also is not eating much, patient was encouraged to promote eating habits, she told me she had 50% of last night dinner were actually 25% is documented. When I talked to the daughter Amaris soto is the same concerns and she wants her to be monitored in the hospital for another day. Other management and plan I discussed with the daughter and patient and they are agreeable. Discussed with the staff to and bedside nurse. Her blood pressure is better controlled, but not acutely normalized therefore will increase her hydralazine to 50 mg twice a day into 3 times a day Possible discharge in 24-48 hours Objective - Vital Signs Vital signs: Vital Signs Temp 97.3 F L 08/13/22 08:00 Pulse 67 08/13/22 08:00 Resp 18 08/13/22 08:00 BP 146/51 08/13/22 08:00 Pulse Ox 98 08/13/22 08:00 FiO2 Intake & Output 08/12/22 08/13/22 08/13/22 18:59 06:59 18:59 Output Total 1100 850 Balance -1100 -850 Weight 81.647 kg Output: Urine 1100 850 Straight 550 Other: Voiding Method External Catheter Indwelling Catheter # Voids 1 - Exam GENERAL: The patient is alert and oriented x3, not in any acute distress. Well developed, well nourished. HEENT: Pupils are round and equally reacting to light. EOMI. No scleral icterus. No conjunctival pallor. Normocephalic, atraumatic. No pharyngeal erythema. No thyromegaly. CARDIOVASCULAR: S1 and S2 present. No murmurs, rubs, or gallops. PULMONARY: Chest is clear to auscultation, no wheezing or crackles. ABDOMEN: Soft, nontender, nondistended, normoactive bowel sounds. No palpable organomegaly. MUSCULOSKELETAL: No joint swelling or deformity. EXTREMITIES: No cyanosis, clubbing, or pedal edema. NEUROLOGICAL: Gross neurological examination did not reveal any focal deficits. SKIN: No rashes. no petechiae. - Labs CBC & Chem 7: 08/10/22 08:10 08/12/22 03:25 Labs: Microbiology - Last 24 Hours (Table) 08/09/22 12:30 Blood Culture - Preliminary Blood No Growth after 72 hours Assessment and Plan Assessment: Acute urinary tract infection, secondary to enterococcus, improving Staph mellitus bacteremia Acute urinary retention Metabolic encephalopathy secondary to above Hypertension, uncontrolled Hyperlipidemia History of osteoarthritis History of coronary artery disease Plan: Continue with antibiotics as per ID team. Currently on Macrobid Increase hydralazine and monitor blood pressure Encourage oral. Consult diet team Start Navarrete catheter and Flomax with recommendation for outpatient follow-up with urologist (patient informed all these recommendations and she agrees) Discontinue IV fluid Possible discharge to ECF for rehab. When she is ready ID team on the case Medication and labs revealed. Monitor labs and vitals. DVT and GI prophylaxis. Further recommendations as per clinical course of the patient DVT prophylaxis: Subcutaneous heparin GI Prophylaxis: Pepcid PT/OT: LEANDRA Prognosis is guarded I talked to her daughter Amaris at her work [phone] I discussed the case with her including the plans and management and she is agreeable
--- NOTE | 2022-08-13 14:11 | P.DS ---
Providers Date of admission: 08/06/22 13:57 Attending physician: Abhijit Bell Consults: 08/07/22 14:25 Consult Physician Routine Consulting Provider: Jeromy Santos Consult Reason/Comments: sepsis?? Do you want consulting provider notified?: Yes Primary care physician: Willy Chiu Hospital Course: diagnoses: Acute urinary tract infection, secondary to enterococcus, improving Staph mellitus bacteremia Acute urinary retention Metabolic encephalopathy secondary to above, mostly related to her delirium from infection Hypertension, uncontrolled Hyperlipidemia History of osteoarthritis History of coronary artery disease Hospital course: This is a pleasant 77 years old female with multiple medical problems presents with metabolic encephalopathy suspected secondary to infection and sepsis, she has acute urinary tract infections and bacteremia with staph hemolyticus growing in the blood, Patient was treated with normalsaline at 75 mL/h patient showed interval improvement. Patient antibiotic was adjusted into macrobid 7 day upon discharge by ID team Patient with evidence of urinary retention, Navarrete catheter was placed, Flomax is started with recommendation to follow up with urologist upon discharge Patient also with average appetite, patient might benefit from encouraging to eat more. No swallowing difficulty as she states. Today patient is fully awake and oriented to time, place and person when I saw her in the morning she couldn't tell me where she is, the date and the name of the president, she has insight into her illness and she follows commands. Patient was cleared for discharge by ID team. Her blood pressure was elevated, her hydralazine dose was increased to 50 mg twice a day, we will keep his toes upon discharge with close return of blood pressure and may be increased to 50 mg 3 times a day if needed. Other than that patient is fully awake and oriented, she denies chest pain or dyspnea, no abdominal pain, no urinary complaints, no vomiting. No diarrhea. No rash. No fever. Patient he got for discharge today Initially we wanted to monitor the patient for 1 more day to encourage her eating more , however daughter and upon patient request called back and wants h er to be discharged today to [facility] Problems and management plan were discussed with the patient and he verbalized understanding and acceptance Patient was found stable and can be discharged home in guarded prognosis however he needs follow-up as an outpatient. Patient was instructed to follow up with PCP within one week and patient agrees Physical exam Gen: patient is a AAOx3, no distress CVS: S1-S2, RRR, no murmur Lungs: B/L CTA, no wheezing Abdomen: soft, no distention, no tenderness, positive bowel sounds Extremity: no leg edema or induration Time spent more than 35 minutes Patient Condition at Discharge: Fair Plan - Discharge Summary Discharge Rx Participant: No New Discharge Prescriptions: New Nitrofurantoin Monohyd/M-Cryst [Macrobid] 100 mg PO BID 7 Days #14 cap hydrALAZINE HCL [Apresoline] 50 mg PO BID #60 tab Continue Collagenase [Santyl Ointment] 1 applic TOPICAL HS Magic Mouthwash 1 dose PO Q12H Docusate [Colace] 100 mg PO BID Magnesium Hydroxide [Milk of Magnesia] 2,400 mg PO DAILY PRN PRN Reason: Constipation Sertraline [Zoloft] 50 mg PO DAILY Discontinued hydrALAZINE HCL [Apresoline] 25 mg PO BID tab Acetaminophen-Codeine 300-30mg [Tylenol w/codeine #3] 1 tab PO Q6H PRN #6 tab PRN Reason: Pain No Action Multivitamins, Thera [Multivitamin (formulary)] 1 tab PO DAILY Potassium Chloride [Klor-Con 20] 20 meq PO DAILY Folic Acid 1 mg PO DAILY Aspirin [Children's Aspirin] 81 mg PO DAILY Ipratropium-Albuterol Nebulize [Duoneb 0.5 mg-3 mg/3 ml Soln] 3 ml INHALATION RT-TID PRN each PRN Reason: Shortness Of Breath Or Wheezing Sodium Bicarbonate Tab 650 mg PO BID tab cloNIDine 0.3 MG/24HR PATCH [Catapres-TTS] 1 patch TRANSDERM MO@0600 Pregabalin [Lyrica] 100 mg PO BID@1400,2100 #4 cap Ergocalciferol [Vitamin D2 (1250 Mcg = 99611 Iu)] 1,250 mcg PO SAMANIEGO Famotidine [Pepcid] 20 mg PO DAILY #0 tab Mirtazapine 7.5 mg PO HS Furosemide [Lasix] 40 mg PO DAILY tab amLODIPine [Norvasc] 10 mg PO DAILY tab Acetaminophen Tab [Tylenol] 650 mg PO Q6HR PRN tab PRN Reason: Fever and/ or Mild Pain Discharge Medication List Multivitamins, Thera [Multivitamin (formulary)] 1 tab PO DAILY 06/14/16 [History] Potassium Chloride [Klor-Con 20] 20 meq PO DAILY 07/24/18 [History] Aspirin [Children's Aspirin] 81 mg PO DAILY 01/21/19 [History] Folic Acid 1 mg PO DAILY 01/21/19 [History] Ergocalciferol [Vitamin D2 (1250 Mcg = 30426 Iu)] 1,250 mcg PO SAMANIEGO 05/24/21 [History] Famotidine [Pepcid] 20 mg PO DAILY #0 tab 04/19/22 [Rx] Mirtazapine 7.5 mg PO HS 05/23/22 [History] Acetaminophen Tab [Tylenol] 650 mg PO Q6HR PRN tab 06/03/22 [Rx] Furosemide [Lasix] 40 mg PO DAILY tab 06/03/22 [Rx] Ipratropium-Albuterol Nebulize [Duoneb 0.5 mg-3 mg/3 ml Soln] 3 ml INHALATION RT-TID PRN each 06/03/22 [Rx] Sodium Bicarbonate Tab 650 mg PO BID tab 06/03/22 [Rx] amLODIPine [Norvasc] 10 mg PO DAILY tab 06/03/22 [Rx] Pregabalin [Lyrica] 100 mg PO BID@1400,2100 #4 cap 06/21/22 [Rx] cloNIDine 0.3 MG/24HR PATCH [Catapres-TTS] 1 patch TRANSDERM MO@0600 06/21/22 [History] Collagenase [Santyl Ointment] 1 applic TOPICAL HS 08/06/22 [History] Docusate [Colace] 100 mg PO BID 08/06/22 [History] Magic Mouthwash 1 dose PO Q12H 08/06/22 [History] Magnesium Hydroxide [Milk of Magnesia] 2,400 mg PO DAILY PRN 08/06/22 [History] Sertraline [Zoloft] 50 mg PO DAILY 08/06/22 [History] Nitrofurantoin Monohyd/M-Cryst [Macrobid] 100 mg PO BID 7 Days #14 cap 08/13/22 [Rx] hydrALAZINE HCL [Apresoline] 50 mg PO BID #60 tab 08/13/22 [Rx] Follow up Appointment(s)/Referral(s): Willy Chiu MD [Primary Care Provider] - 1-2 days [facility], [NON-STAFF] - As Needed Jeromy Santos MD [STAFF PHYSICIAN] - 1 Week Rudy Gonzalez MD [STAFF PHYSICIAN] - 1 Week (Urologist, for your urine retention)
[2022-08-13] MEDS: PREGABALIN 75 MG CAP PO SCH (14:17)
[2022-08-13 14:54] VITALS: BP 154/66; PULSE 47; RESP 20; TEMP 97.9
[2022-08-13] MEDS ORDERED: hydrALAZINE HCL 50 MG TAB PO SCH (16:00)
--- NOTE | 2022-08-16 22:25 | P.PN ---
Subjective Progress Note Date: 08/13/22 Principal diagnosis: Urinary tract infection and positive blood culture Patient is a 77-year-old female long term resident patient was sent to the ER yesterday afternoon for evaluation of mental status changes weakness and failure to thrive apparently patient has been declining over the last 2 weeks with decreased oral intake not drinking and unable to care for herself, patient did have positive the concerning for symptomatic urinary tract infection on today's evaluation that is 08/13/2022, the patient remainsto be afebrile, the patient is breathing comfortably on room air , the patient denies chest pain or cough , the patient denies nausea no vomiting no abdominal pain no diarrhea, , patient is feeling better and wants to go home Objective - Vital Signs Vital signs: Vital Signs Temp 97.3 F L 08/13/22 08:00 Pulse 67 08/13/22 08:00 Resp 18 08/13/22 08:00 BP 146/51 08/13/22 08:00 Pulse Ox 98 08/13/22 08:00 FiO2 Intake & Output 08/12/22 08/13/22 08/13/22 18:59 06:59 18:59 Output Total 1100 850 Balance -1100 -850 Weight 81.647 kg Output: Urine 1100 850 Straight 550 Other: Voiding Method External Catheter Indwelling Catheter # Voids 1 - Exam GENERAL DESCRIPTION: An elderly female lying in bed in no distress RESPIRATORY SYSTEM: Unlabored breathing , decreased breath sounds at bases HEART: S1 S2 regular rate and rhythm , ABDOMEN: Soft , no tenderness EXTREMITIES: No edema feet - Labs CBC & Chem 7: 08/10/22 08:10 08/12/22 03:25 Labs: Microbiology - Last 24 Hours (Table) 08/09/22 12:30 Blood Culture - Preliminary Blood No Growth after 72 hours Assessment and Plan (1) Positive blood culture Status: Acute Code(s): R78.81 - BACTEREMIA SNOMED Code(s): 732461375 (2) UTI (urinary tract infection) Status: Acute Code(s): N39.0 - URINARY TRACT INFECTION, SITE NOT SPECIFIED SNOMED Code(s): 31869392 Plan: 1patient was in the hospital mental status changes likely multifactorial patient did have significant positive UA a component of gram-negative urinary tract infection not entirely excluded however the urine is currently showing Enterococcus. 2positive blood culture with staph epi likely skin contamination blood cultures repeat has been negative. 3patient with multiple antibiotic allergies that would limit the number of antibiotics safe to use. 4dry protective dressing to the sacral area and heel protector bilateral heel with a pressure ulcer. 5-patient has shown clinical improvement on Macrobid which will be continued for 7 days on discharge and close outpatient follow-up Time with Patient: Less than 30
== END 2022-08-13 16:05 | DRG 689 ==
LOC: EC 11:51 → 4SSUR 13:57
PROVIDERS: ADMIT Hospitalist; ATTEND Hospitalist
PROC: 05HA33Z Insertion of Infusion Device into Left Brachial Vein, Percutaneous Approach (ICD-10-PCS; principal; 2022-08-09 08:30)
DX: N39.0 Urinary tract infection, site not specified (principal); G93.41 Metabolic encephalopathy; E46 Unspecified protein-calorie malnutrition; F05 Delirium due to known physiological condition; R78.81 Bacteremia; R62.7 Adult failure to thrive; Z20.822 Contact with and (suspected) exposure to COVID-19; B95.7 Other staphylococcus as the cause of diseases classified elsewhere; B95.2 Enterococcus as the cause of diseases classified elsewhere; R33.8 Other retention of urine; I25.10 Atherosclerotic heart disease of native coronary artery without angina pectoris; Z95.1 Presence of aortocoronary bypass graft; M19.90 Unspecified osteoarthritis, unspecified site; E78.5 Hyperlipidemia, unspecified; Z90.49 Acquired absence of other specified parts of digestive tract; I10 Essential (primary) hypertension; R26.9 Unspecified abnormalities of gait and mobility; E86.0 Dehydration; G89.4 Chronic pain syndrome; M06.9 Rheumatoid arthritis, unspecified; Z79.82 Long term (current) use of aspirin; Z79.899 Other long term (current) drug therapy; Z87.891 Personal history of nicotine dependence; Z90.710 Acquired absence of both cervix and uterus; Z98.1 Arthrodesis status; Z98.42 Cataract extraction status, left eye; Z98.41 Cataract extraction status, right eye; Z96.1 Presence of intraocular lens; Z88.1 Allergy status to other antibiotic agents; Z88.2 Allergy status to sulfonamides; Z88.8 Allergy status to other drugs, medicaments and biological substances; Z68.31 Body mass index [BMI] 31.0-31.9, adult
CPT/HCPCS: 36410; 36415; 70450; 71046; 76937; 80048; 80053; 81001; 82565; 83605; 83735; 84484; 85025; 85610; 85730; 87040; 87077; 87086; 87186; 87636; 93005; 96361; 96365; 96366; 99285

== ENCOUNTER 2022-08-14 19:32 | Emergency (ER) | payer MEDICARE, BC ==
[2022-08-14 19:53] VITALS: TEMP 98.1
--- NOTE | 2022-08-14 20:58 | XR ---
EXAMINATION TYPE: XR chest 1V portable DATE OF EXAM: 08/14/2022 8:44 PM COMPARISON: Chest radiographs from 08/06/2022 TECHNIQUE: XR chest 1V portable Portable AP radiograph of the chest. CLINICAL INDICATION:Female, 77 years old with history of altered mental status; FINDINGS: Lungs/Pleura: There is no evidence of pleural effusion, focal consolidation, or pneumothorax. Pulmonary vascularity: Unremarkable. Heart/mediastinum: Cardiomediastinal silhouette is unremarkable. Musculoskeletal: No acute osseous pathology. Midline sternotomy wires are noted. IMPRESSION: No acute cardiopulmonary disease/process.
[2022-08-14 21:04] LABS: Anisocytosis Slight; Basophils # (A) 0.1 k/uL (0-0.2); Basophils % (A) 1 %; Eosinophils # (A) 0.3 k/uL (0-0.7); Eosinophils % (A) 3 %; HCT 32.5 % (34.0-46.0); HGB 10.8 gm/dL (11.4-16.0); Lymphocytes % (A) 24 %; MCH 28.2 pg (25.0-35.0); MCHC 33.3 g/dL (31.0-37.0); MCV 84.5 fL (80.0-100.0); Mean Platelet Volume 10.3; Monocytes # (A) 0.5 k/uL (0-1.0); Monocytes % (A) 6 %; Neutrophils # (A) 5.4 k/uL (1.3-7.7); Neutrophils % (A) 64 %; Platelet Count 135 k/uL (150-450); RBC 3.84 m/uL (3.80-5.40); RDW 16.6 % (11.5-15.5); WBC 8.4 k/uL (3.8-10.6)
[2022-08-14 21:15] LABS: Albumin 3.3 g/dL (3.5-5.0); Calcium 9.9 mg/dL (8.4-10.2); Potassium 4.1 mmol/L (3.5-5.1); Total Bilirubin 0.5 mg/dL (0.2-1.3); Total Protein 6.9 g/dL (6.3-8.2)
[2022-08-14 21:29] LABS: Prothrombin Time 10.8 sec (9.0-12.0)
[2022-08-14 21:40] LABS: Amorphous Sediment,Urine Rare /hpf; Appearance,Urine Turbid (Clear); Bacteria,Urine Rare /hpf; Bilirubin,Urine Negative (Negative); Blood,Urine Negative (Negative); Color,Urine Yellow; Glucose,Urine (UA) Negative (Negative); Ketones,Urine Negative (Negative); Leukocyte Esterase,Urine Moderate (Negative); Mucus,Urine Occasional /hpf; Nitrite,Urine Negative (Negative); PH, Urine 7.5 (5.0-8.0); Protein,Urine 1+ (Negative); RBC,Urine 14 /hpf (0-5); Specific Gravity,Urine 1.016 (1.001-1.035); Squamous Epithelial Cell,Urine <1 /hpf (0-4); Urobilinogen,Urine <2.0 mg/dL (<2.0); WBC,Urine 20 /hpf (0-5)
--- NOTE | 2022-08-14 22:09 | ED ---
Altered Mental Status HPI - General Chief Complaint: Altered Mental Status Stated Complaint: Weakness Time Seen by Provider: 08/14/22 20:18 Source: patient, EMS Mode of arrival: EMS - History of Present Illness Initial Comments: This patient is 77-year-old woman sent in from long term to have evaluation for suspected altered mental status. It was reported that the doctor had gone to see her at the extended care facility and patient was not responding. Patient's daughter is at the bedside says that she appears to be at her baseline now. When I interview the patient, she does not have any complaints. Denies pain. No dyspnea. Patient had been admitted in the hospital from August 07- related to urinary tract infection. Patient continuing to take antibiotic. MD Complaint: altered mental status -: hour(s) Severity: moderate Consistency of Symptoms: unknown (Resolved) Associated Symptoms: denies other symptoms - Related Data Home Medications Medication Instructions Recorded Confirmed Multivitamins, Thera [Multivitamin 1 tab PO DAILY 06/14/16 08/21/22 (formulary)] Potassium Chloride [Klor-Con 20] 20 meq PO DAILY 07/24/18 08/21/22 Aspirin [Children's Aspirin] 81 mg PO DAILY 01/21/19 08/21/22 Folic Acid 1 mg PO DAILY 01/21/19 08/21/22 Ergocalciferol [Vitamin D2 (1250 1,250 mcg PO SAMANIEGO 05/24/21 08/21/22 Mcg = 47833 Iu)] Mirtazapine 7.5 mg PO HS 05/23/22 08/21/22 Docusate [Colace] 100 mg PO BID 08/06/22 08/21/22 Magnesium Hydroxide [Milk of 2,400 mg PO DAILY PRN 08/06/22 08/21/22 Magnesia] Sertraline [Zoloft] 50 mg PO DAILY 08/06/22 08/21/22 Collagenase [Santyl Ointment] 1 applic TOPICAL DAILY PRN 08/21/22 08/21/22 Collagenase [Santyl Ointment] 1 applic TOPICAL HS 08/21/22 08/21/22 lidocaine HCL [lidocaine HCL 5 ml PO QID PRN 08/21/22 08/21/22 Viscous] Previous Rx's Medication Instructions Recorded Famotidine [Pepcid] 20 mg PO DAILY #0 tab 04/19/22 Acetaminophen Tab [Tylenol] 650 mg PO Q6HR PRN tab 06/03/22 Furosemide [Lasix] 40 mg PO DAILY tab 06/03/22 Ipratropium-Albuterol Nebulize 3 ml INHALATION RT-TID PRN each 06/03/22 [Duoneb 0.5 mg-3 mg/3 ml Soln] Sodium Bicarbonate Tab 650 mg PO BID tab 06/03/22 amLODIPine [Norvasc] 10 mg PO DAILY tab 06/03/22 Pregabalin [Lyrica] 100 mg PO BID@1400,2100 #4 cap 06/21/22 hydrALAZINE HCL [Apresoline] 50 mg PO BID #60 tab 08/13/22 Allergies Allergy/AdvReac Type Severity Reaction Status Date / Time alprazolam [From Xanax] Allergy Unknown Verified 08/21/22 13:02 amlodipine [From Norvasc] Allergy Unknown Verified 08/21/22 13:02 amoxicillin trihydrate AdvReac Severe Nausea & Verified 08/21/22 13:02 [From Augmentin] Vomiting & Diarrhea potassium clavulanate AdvReac Severe Nausea & Verified 08/21/22 13:02 [From Augmentin] Vomiting & Diarrhea sulfamethoxazole AdvReac Severe affected Verified 08/21/22 13:02 [From Bactrim] muscles - couldn't move trimethoprim [From Bactrim] AdvReac Severe affected Verified 08/21/22 13:02 muscles - couldn't move diazepam [From Valium] AdvReac hard time Verified 08/21/22 13:02 coming out of anesthesia Upwgyng-VBD-RuZ Reductase AdvReac leg cramps Verified 08/21/22 13:02 Inhibitor [Hbfdisd-Hih-Pyj Reductase Inhibitor] Sulfa (Sulfonamide AdvReac affected Verified 08/21/22 13:02 Antibiotics) muscles - couldn't move Review of Systems ROS Statement: Those systems with pertinent positive or pertinent negative responses have been documented in the HPI. ROS Other: All systems not noted in ROS Statement are negative. Constitutional: Denies: fever, chills, weakness Eyes: Denies: vision change Respiratory: Denies: cough, dyspnea Cardiovascular: Denies: chest pain Gastrointestinal: Denies: abdominal pain, vomiting Genitourinary: Denies: dysuria, frequency Musculoskeletal: Denies: back pain Neurological: Reports: as per HPI. 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 CATARACTS RONY. carpal tunnelWITH LENS IMPLANT 2007, lower back spinal fusion 2017, left knee surgery 2018., Past Anesthesia/Blood Transfusion Reactions: Postoperative Nausea & Vomiting (PONV) Additional Past Anesthesia/Blood Transfusion Reaction / Comment(s): PONV and hard to wake up Past Psychological History: Anxiety, Depression Additional Psychological History / Comment(s): . Smoking Status: Former smoker Past Alcohol Use History: None Reported Additional Past Alcohol Use History / Comment(s): QUIT 2007 WAS 1PPD smoker since age 17 or 19. She denies any medical marijuana, marijuana, street drug or alcohol use. She lives at home with her of 52 years. Past Drug Use History: None Reported - Past Family History Brother(s) Additional Family Medical History / Comment(s): Shunt has 1 brother and 1 sister but she does not have any contact with them. Patient has 3 children that are all healthy. Mother Family Medical History: Cancer Additional Family Medical History / Comment(s): . Father Family Medical History: Cancer Additional Family Medical History / Comment(s): . General Exam General appearance: alert, in no apparent distress Head exam: Present: atraumatic, normocephalic Eye exam: Present: normal appearance. Absent: scleral icterus, conjunctival injection Neck exam: Present: normal inspection, full ROM Respiratory exam: Present: normal lung sounds bilaterally. Absent: respiratory distress, wheezes, rales, rhonchi, stridor Cardiovascular Exam: Present: regular rate, normal rhythm, normal heart sounds. Absent: systolic murmur, diastolic murmur, rubs, gallop GI/Abdominal exam: Present: soft. Absent: distended, tenderness, guarding, rebound, rigid, mass Extremities exam: Present: normal inspection. Absent: pedal edema, calf tenderness Neurological exam: Present: alert, CN II-XII intact. Absent: oriented X3 (Reported to person and place), motor sensory deficit Skin exam: Present: warm, dry, intact, normal color. Absent: rash Course Vital Signs 08/14/22 08/14/22 08/14/22 19:46 21:16 22:35 Temperature 98.1 F Pulse Rate 80 68 86 Respiratory 18 18 20 Rate Blood Pressure 158/66 144/78 148/90 O2 Sat by Pulse 97 97 95 Oximetry Medical Decision Making - Medical Decision Making Patient is 77-year-old woman sent to have evaluation for ultimate mental status. Patient appears at baseline. Workup here is unremarkable. Stable for return to the extended care facility and complete course of antibiotics for urinary tra ct infection - Lab Data Result diagrams: 08/14/22 20:48 08/14/22 20:48 Lab Results 08/14/22 08/14/22 08/14/22 Range/Units 20:48 20:48 20:48 WBC 8.4 (3.8-10.6) k/uL RBC 3.84 (3.80-5.40) m/uL Hgb 10.8 L (11.4-16.0) gm/dL Hct 32.5 L (34.0-46.0) % MCV 84.5 (80.0-100.0) fL MCH 28.2 (25.0-35.0) pg MCHC 33.3 (31.0-37.0) g/dL RDW 16.6 H (11.5-15.5) % Plt Count 135 L (150-450) k/uL MPV 10.3 Neutrophils % 64 % Lymphocytes % 24 % Monocytes % 6 % Eosinophils % 3 % Basophils % 1 % Neutrophils # 5.4 (1.3-7.7) k/uL Lymphocytes # 2.0 (1.0-4.8) k/uL Monocytes # 0.5 (0-1.0) k/uL Eosinophils # 0.3 (0-0.7) k/uL Basophils # 0.1 (0-0.2) k/uL Anisocytosis Slight PT 10.8 (9.0-12.0) sec INR 1.0 (<1.2) APTT 23.0 (22.0-30.0) sec Sodium 137 (137-145) mmol/L Potassium 4.1 (3.5-5.1) mmol/L Chloride 106 (98-107) mmol/L Carbon Dioxide 27 (22-30) mmol/L Anion Gap 4 mmol/L BUN 12 (7-17) mg/dL Creatinine 1.00 (0.52-1.04) mg/dL Est GFR (CKD-EPI)AfAm 64 (>60 ml/min/1.73 sqM) Est GFR (CKD-EPI)NonAf 55 (>60 ml/min/1.73 sqM) Glucose 103 H (74-99) mg/dL Calcium 9.9 (8.4-10.2) mg/dL Total Bilirubin 0.5 (0.2-1.3) mg/dL AST 33 (14-36) U/L ALT 17 (4-34) U/L Alkaline Phosphatase 80 (38-126) U/L Ammonia (<30) umol/L Troponin I (0.000-0.034) ng/mL Total Protein 6.9 (6.3-8.2) g/dL Albumin 3.3 L (3.5-5.0) g/dL Urine Color Urine Appearance (Clear) Urine pH (5.0-8.0) Ur Specific Central (1.001-1.035) Urine Protein (Negative) Urine Glucose (UA) (Negative) Urine Ketones (Negative) Urine Blood (Negative) Urine Nitrite (Negative) Urine Bilirubin (Negative) Urine Urobilinogen (<2.0) mg/dL Ur Leukocyte Esterase (Negative) Urine RBC (0-5) /hpf Urine WBC (0-5) /hpf Ur Squamous Epith Cells (0-4) /hpf Amorphous Sediment (None) /hpf Urine Bacteria (None) /hpf Urine Mucus (None) /hpf 08/14/22 08/14/22 08/14/22 Range/Units 20:48 20:48 20:48 WBC (3.8-10.6) k/uL RBC (3.80-5.40) m/uL Hgb (11.4-16.0) gm/dL Hct (34.0-46.0) % MCV (80.0-100.0) fL MCH (25.0-35.0) pg MCHC (31.0-37.0) g/dL RDW (11.5-15.5) % Plt Count (150-450) k/uL MPV Neutrophils % % Lymphocytes % % Monocytes % % Eosinophils % % Basophils % % Neutrophils # (1.3-7.7) k/uL Lymphocytes # (1.0-4.8) k/uL Monocytes # (0-1.0) k/uL Eosinophils # (0-0.7) k/uL Basophils # (0-0.2) k/uL Anisocytosis PT (9.0-12.0) sec INR (<1.2) APTT (22.0-30.0) sec Sodium (137-145) mmol/L Potassium (3.5-5.1) mmol/L Chloride (98-107) mmol/L Carbon Dioxide (22-30) mmol/L Anion Gap mmol/L BUN (7-17) mg/dL Creatinine (0.52-1.04) mg/dL Est GFR (CKD-EPI)AfAm (>60 ml/min/1.73 sqM) Est GFR (CKD-EPI)NonAf (>60 ml/min/1.73 sqM) Glucose (74-99) mg/dL Calcium (8.4-10.2) mg/dL Total Bilirubin (0.2-1.3) mg/dL AST (14-36) U/L ALT (4-34) U/L Alkaline Phosphatase (38-126) U/L Ammonia <9 (<30) umol/L Troponin I 0.017 (0.000-0.034) ng/mL Total Protein (6.3-8.2) g/dL Albumin (3.5-5.0) g/dL Urine Color Yellow Urine Appearance Turbid H (Clear) Urine pH 7.5 (5.0-8.0) Ur Specific Central 1.016 (1.001-1.035) Urine Protein 1+ H (Negative) Urine Glucose (UA) Negative (Negative) Urine Ketones Negative (Negative) Urine Blood Negative (Negative) Urine Nitrite Negative (Negative) Urine Bilirubin Negative (Negative) Urine Urobilinogen <2.0 (<2.0) mg/dL Ur Leukocyte Esterase Moderate H (Negative) Urine RBC 14 H (0-5) /hpf Urine WBC 20 H (0-5) /hpf Ur Squamous Epith Cells <1 (0-4) /hpf Amorphous Sediment Rare H (None) /hpf Urine Bacteria Rare H (None) /hpf Urine Mucus Occasional H (None) /hpf Disposition Clinical Impression: Altered mental status Disposition: HOME SELF-CARE Condition: Good Instructions (If sedation given, give patient instructions): Altered Mental Status (ED) Is patient prescribed a controlled substance at d/c from ED?: No Referrals: Willy Chiu MD [Primary Care Provider] - 1-2 days
[2022-08-14 23:10] VITALS: BP 148/90; PULSE 86; RESP 20
== END 2022-08-14 23:09 | disposition home or self-care (01) ==
LOC: EC 19:32
DX: R41.82 Altered mental status, unspecified (principal); I10 Essential (primary) hypertension; I25.10 Atherosclerotic heart disease of native coronary artery without angina pectoris; E78.5 Hyperlipidemia, unspecified; M19.90 Unspecified osteoarthritis, unspecified site; F41.9 Anxiety disorder, unspecified; F32.A Depression, unspecified; Z87.891 Personal history of nicotine dependence; Z79.82 Long term (current) use of aspirin; Z79.899 Other long term (current) drug therapy; Z88.2 Allergy status to sulfonamides; Z88.8 Allergy status to other drugs, medicaments and biological substances; Z88.1 Allergy status to other antibiotic agents
CPT/HCPCS: 36415; 71045; 80053; 81001; 82140; 84484; 85025; 85610; 85730; 99285

== ENCOUNTER 2022-08-21 12:50 | Inpatient (IN) | payer MEDICARE, BC ==
[2022-08-21] MEDS ORDERED: SODIUM CHLORIDE 0.9% 500 ML 500 ML IV STA (13:00)
--- NOTE | 2022-08-21 13:05 | ED ---
General Adult HPI - General Stated complaint: Weakness Time Seen by Provider: 08/21/22 12:55 Source: patient, EMS, RN notes reviewed, old records reviewed - History of Present Illness Initial comments: This is a 77-year-old female presents emergency department from the correction for generalized weakness. According to the correction staff she's not eating and she is not drinking and they believe the wound on her buttocks is getting worse. According to the staff patient was recently discharged from the hospital to the correction. Patient denies any pain. Patient denies any fever chills per patient denies any difficulty breathing or shortness of breath. Patient has any chest pain. Patient denies abdominal pain patient denies nausea vomiting diarrhea. Patient states she does not walk much and she doesn't know if the wound is getting worse because she can't see it. Patient is alert and oriented 3 currently. Patient denies any recent injury or trauma. No further history is available this time because there is no 1 with the patient family or caregiver - Related Data Home Medications Medication Instructions Recorded Confirmed Multivitamins, Thera [Multivitamin 1 tab PO DAILY 06/14/16 08/21/22 (formulary)] Potassium Chloride [Klor-Con 20] 20 meq PO DAILY 07/24/18 08/21/22 Aspirin [Children's Aspirin] 81 mg PO DAILY 01/21/19 08/21/22 Folic Acid 1 mg PO DAILY 01/21/19 08/21/22 Ergocalciferol [Vitamin D2 (1250 1,250 mcg PO SAMANIEGO 05/24/21 08/21/22 Mcg = 00648 Iu)] Mirtazapine 7.5 mg PO HS 05/23/22 08/21/22 Docusate [Colace] 100 mg PO BID 08/06/22 08/21/22 Magnesium Hydroxide [Milk of 2,400 mg PO DAILY PRN 08/06/22 08/21/22 Magnesia] Sertraline [Zoloft] 50 mg PO DAILY 08/06/22 08/21/22 Collagenase [Santyl Ointment] 1 applic TOPICAL DAILY PRN 08/21/22 08/21/22 Collagenase [Santyl Ointment] 1 applic TOPICAL HS 08/21/22 08/21/22 lidocaine HCL [lidocaine HCL 5 ml PO QID PRN 08/21/22 08/21/22 Viscous] Previous Rx's Medication Instructions Recorded Famotidine [Pepcid] 20 mg PO DAILY #0 tab 04/19/22 Acetaminophen Tab [Tylenol] 650 mg PO Q6HR PRN tab 06/03/22 Furosemide [Lasix] 40 mg PO DAILY tab 06/03/22 Ipratropium-Albuterol Nebulize 3 ml INHALATION RT-TID PRN each 06/03/22 [Duoneb 0.5 mg-3 mg/3 ml Soln] Sodium Bicarbonate Tab 650 mg PO BID tab 06/03/22 amLODIPine [Norvasc] 10 mg PO DAILY tab 06/03/22 Pregabalin [Lyrica] 100 mg PO BID@1400,2100 #4 cap 06/21/22 hydrALAZINE HCL [Apresoline] 50 mg PO BID #60 tab 08/13/22 Allergies Allergy/AdvReac Type Severity Reaction Status Date / Time alprazolam [From Xanax] Allergy Unknown Verified 08/21/22 13:02 amlodipine [From Norvasc] Allergy Unknown Verified 08/21/22 13:02 amoxicillin trihydrate AdvReac Severe Nausea & Verified 08/21/22 13:02 [From Augmentin] Vomiting & Diarrhea potassium clavulanate AdvReac Severe Nausea & Verified 08/21/22 13:02 [From Augmentin] Vomiting & Diarrhea sulfamethoxazole AdvReac Severe affected Verified 08/21/22 13:02 [From Bactrim] muscles - couldn't move trimethoprim [From Bactrim] AdvReac Severe affected Verified 08/21/22 13:02 muscles - couldn't move diazepam [From Valium] AdvReac hard time Verified 08/21/22 13:02 coming out of anesthesia Dksyucj-ALS-OpF Reductase AdvReac leg cramps Verified 08/21/22 13:02 Inhibitor [Dksdmrx-Ldj-Zfw Reductase Inhibitor] Sulfa (Sulfonamide AdvReac affected Verified 08/21/22 13:02 Antibiotics) muscles - couldn't move Review of Systems ROS Statement: Those systems with pertinent positive or pertinent negative responses have been documented in the HPI. ROS Other: All systems not noted in ROS Statement are negative. 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 CATARACTS RONY. carpal tunnelWITH LENS IMPLANT 2007, lower back spinal fusion 2018, left knee surgery 2018., Past Anesthesia/Blood Transfusion Reactions: Postoperative Nausea & Vomiting (PONV) Additional Past Anesthesia/Blood Transfusion Reaction / Comment(s): PONV and hard to wake up Past Psychological History: Anxiety, Depression Additional Psychological History / Comment(s): . Smoking Status: Former smoker Past Alcohol Use History: None Reported Additional Past Alcohol Use History / Comment(s): QUIT 2007 WAS 1PPD smoker since age 17 or 19. She denies any medical marijuana, marijuana, street drug or alcohol use. She lives at home with her of 52 years. Past Drug Use History: None Reported - Past Family History Brother(s) Additional Family Medical History / Comment(s): Shunt has 1 brother and 1 sister but she does not have any contact with them. Patient has 3 children that are all healthy. Mother Family Medical History: Cancer Additional Family Medical History / Comment(s): . Father Family Medical History: Cancer Additional Family Medical History / Comment(s): . General Exam - General Exam Comments Initial Comments: GENERAL: Patient is well-developed and well-nourished. Patient is nontoxic and well- hydrated and is in no acute distress. ENT: Neck is soft and supple. No significant lymphadenopathy is noted. Oropharynx is clear. Moist mucous membranes. Neck has full range of motion without eliciting any pain. EYES: The sclera were anicteric and conjunctiva were pink and moist. Extraocular movements were intact and pupils were equal round and reactive to light. Eyelids were unremarkable. PULMONARY: Unlabored respirations. Good breath sounds bilaterally. No audible rales rhonchi or wheezing was noted. CARDIOVASCULAR: There is a regular rate and rhythm without any murmurs gallops or rubs. ABDOMEN: Soft and nontender with normal bowel sounds. SKIN: Patient has a decubitus ulcer on the sacral area. Wound has some erythema around it and there is some area of tissue that needs debridement. NEUROLOGIC: Patient is alert and oriented x3. Cranial nerves II through XII are grossly intact. Motor and sensory are also intact. Normal speech, volume and content. Symmetrical smile. MUSCULOSKELETAL: Normal extremities with adequate strength and full range of motion. LYMPHATICS: No significant lymphadenopathy is noted PSYCHIATRIC: Normal psychiatric evaluation. Course Vital Signs 08/21/22 08/21/22 08/21/22 12:52 14:01 15:00 Temperature 98.0 F Pulse Rate 81 82 60 Respiratory 18 16 18 Rate Blood Pressure 142/65 139/62 164/87 O2 Sat by Pulse 92 L 95 93 L Oximetry 08/21/22 08/21/22 16:01 17:35 Temperature Pulse Rate 55 L 56 L Respiratory 17 18 Rate Blood Pressure 174/68 172/76 O2 Sat by Pulse 96 96 Oximetry Medical Decision Making - Medical Decision Making EKG shows sinus rhythm with a first-degree AV block at rate of 67 bpm QRS is 88 QT interval 372 QTC is 37. Patient's EKG shows no ST segment elevation or depression. Patient has a occasional skipped beat Was pt. sent in by a medical professional or institution? @ -[facility] Did you speak to anyone other than the patient for history? @ -Dr. Chiu Did you review nursing and triage notes? @ -Agreed with nursing and triage notes Were old charts reviewed? @ -I reviewed correction records Differential Diagnosis? @ -Differential Weakness: Hypoglycemia, shock, sepsis, hyponatremia, anemia, infection, IA, ETOH, adverse medicine reaction, overdose, stroke, this is not meant to be an all-inclusive list. EKG interpreted by me (3pts min.)? @ -As above X-rays interpreted by me (1pt min.)? @ -X-rays of the chest was interpreted by me shows no acute abnormality. CT interpreted by me (1pt min.)? @ -None U/S interpreted by me (1pt. min.)? @ -None What testing was considered but not performed? (CT, X-rays, U/S, labs)? Why? @ -None What meds were considered but not given? Why? @ -None Did you discuss the management of the patient with other professionals? @ -I spoke with the Dr. Baca and they agreed to admit the patient admitted the patient wrote admitting orders. I also spoke with Dr. fields the at the correction Did you reconcile home meds? @ -None Was smoking cessation discussed for >3mins.? @ -On Was critical care preformed (if so, how long)? @ -None Were there social determinants of health that impacted care today? How? (Homelessness, low income, unemployed, alcoholism, drug addiction, transportation, low edu. Level, literacy, decrease access to med. care, long-term, rehab)? @ -None Was there de-escalation of care discussed even if they declined? (Discuss DNR or withdrawal of care, Hospice)? @ -No What co-morbidities impacted this encounter? (DM, HTN, Smoking, COPD, CAD, Cancer, CVA, Hep., AIDS, mental health diagnosis, sleep apnea, morbid obesity)? @ -Dementia because of the patient's dementia the patient is not eating or drinking well and is not making any attempt to move and stay off of her sacral wound Was patient admitted / discharged? @ -Patient will be admitted. I spoke with the correction doctor and he st ated that the wound on the sacrum was getting worse he wanted infectious disease to take a look at the wound and maybe have the patient seen by wound clinic. Undiagnosed new problem with uncertain prognosis? @ -None Drug Therapy requiring intensive monitoring for toxicity (Heparin, Nitro, Insulin, Cardizem)? @ -None Were any procedures done? @ -None Diagnosis/symptom? @ -Sacral decubitus ulcer Acute, or Chronic, or Acute on Chronic? @ -Chronic Uncomplicated (without systemic symptoms) or Complicated (systemic symptoms)? @ -Uncomplicated Side effects of treatment? @ -None Exacerbation, Progression, or Severe Exacerbation] @ -Progression Poses a threat to life or bodily function? @ -No Diagnosis/symptom? @ -Failure to thrive Acute, or Chronic, or Acute on Chronic? @ -Chronic Uncomplicated (without systemic symptoms) or Complicated (systemic symptoms)? @ -Uncomplicated Side effects of treatment? @ -None Exacerbation, Progression, or Severe Exacerbation] @ -Progression Poses a threat to life or bodily function? @ -None - Lab Data Result diagrams: 08/21/22 13:04 08/21/22 13:04 Lab Results 08/21/22 08/21/22 08/21/22 Range/Units 13:04 13:04 13:04 WBC 9.0 (3.8-10.6) k/uL RBC 4.26 (3.80-5.40) m/uL Hgb 12.2 (11.4-16.0) gm/dL Hct 35.9 (34.0-46.0) % MCV 84.4 (80.0-100.0) fL MCH 28.6 (25.0-35.0) pg MCHC 33.9 (31.0-37.0) g/dL RDW 16.1 H (11.5-15.5) % Plt Count 155 (150-450) k/uL MPV 10.4 Neutrophils % 71 % Lymphocytes % 20 % Monocytes % 4 % Eosinophils % 3 % Basophils % 1 % Neutrophils # 6.4 (1.3-7.7) k/uL Lymphocytes # 1.8 (1.0-4.8) k/uL Monocytes # 0.4 (0-1.0) k/uL Eosinophils # 0.2 (0-0.7) k/uL Basophils # 0.1 (0-0.2) k/uL Anisocytosis Slight PT 11.0 (9.0-12.0) sec INR 1.1 (<1.2) APTT 23.9 (22.0-30.0) sec Sodium 141 (137-145) mmol/L Potassium 3.9 (3.5-5.1) mmol/L Chloride 106 (98-107) mmol/L Carbon Dioxide 29 (22-30) mmol/L Anion Gap 6 mmol/L BUN 20 H (7-17) mg/dL Creatinine 1.03 (0.52-1.04) mg/dL Est GFR (CKD-EPI)AfAm 61 (>60 ml/min/1.73 sqM) Est GFR (CKD-EPI)NonAf 53 (>60 ml/min/1.73 sqM) Glucose 110 H (74-99) mg/dL Plasma Lactic Acid See (0.7-2.0) mmol/L Calcium 10.6 H (8.4-10.2) mg/dL Magnesium 2.2 (1.6-2.3) mg/dL Total Bilirubin 0.6 (0.2-1.3) mg/dL AST 29 (14-36) U/L ALT 15 (4-34) U/L Alkaline Phosphatase 81 (38-126) U/L Troponin I (0.000-0.034) ng/mL Total Protein 7.2 (6.3-8.2) g/dL Albumin 3.4 L (3.5-5.0) g/dL Urine Color Urine Appearance (Clear) Urine pH (5.0-8.0) Ur Specific [place] (1.001-1.035) Urine Protein (Negative) Urine Glucose (UA) (Negative) Urine Ketones (Negative) Urine Blood (Negative) Urine Nitrite (Negative) Urine Bilirubin (Negative) Urine Urobilinogen (<2.0) mg/dL Ur Leukocyte Esterase (Negative) Urine RBC (0-5) /hpf Urine WBC (0-5) /hpf Ur Squamous Epith Cells (0-4) /hpf Calcium Oxalate Crystal (None) /hpf Urine Bacteria (None) /hpf Granular Casts (0) /lpf Urine Mucus (None) /hpf 08/21/22 08/21/22 08/21/22 Range/Units 13:04 13:04 13:04 WBC (3.8-10.6) k/uL RBC (3.80-5.40) m/uL Hgb (11.4-16.0) gm/dL Hct (34.0-46.0) % MCV (80.0-100.0) fL MCH (25.0-35.0) pg MCHC (31.0-37.0) g/dL RDW (11.5-15.5) % Plt Count (150-450) k/uL MPV Neutrophils % % Lymphocytes % % Monocytes % % Eosinophils % % Basophils % % Neutrophils # (1.3-7.7) k/uL Lymphocytes # (1.0-4.8) k/uL Monocytes # (0-1.0) k/uL Eosinophils # (0-0.7) k/uL Basophils # (0-0.2) k/uL Anisocytosis PT (9.0-12.0) sec INR (<1.2) APTT (22.0-30.0) sec Sodium (137-145) mmol/L Potassium (3.5-5.1) mmol/L Chloride (98-107) mmol/L Carbon Dioxide (22-30) mmol/L Anion Gap mmol/L BUN (7-17) mg/dL Creatinine (0.52-1.04) mg/dL Est GFR (CKD-EPI)AfAm (>60 ml/min/1.73 sqM) Est GFR (CKD-EPI)NonAf (>60 ml/min/1.73 sqM) Glucose (74-99) mg/dL Plasma Lactic Acid See 1.1 (0.7-2.0) mmol/L Calcium (8.4-10.2) mg/dL Magnesium (1.6-2.3) mg/dL Total Bilirubin (0.2-1.3) mg/dL AST (14-36) U/L ALT (4-34) U/L Alkaline Phosphatase (38-126) U/L Troponin I 0.033 (0.000-0.034) ng/mL Total Protein (6.3-8.2) g/dL Albumin (3.5-5.0) g/dL Urine Color Yellow Urine Appearance Cloudy H (Clear) Urine pH 5.5 (5.0-8.0) Ur Specific [place] 1.022 (1.001-1.035) Urine Protein 1+ H (Negative) Urine Glucose (UA) Negative (Negative) Urine Ketones Negative (Negative) Urine Blood Trace H (Negative) Urine Nitrite Negative (Negative) Urine Bilirubin Negative (Negative) Urine Urobilinogen <2.0 (<2.0) mg/dL Ur Leukocyte Esterase Large H (Negative) Urine RBC 5 (0-5) /hpf Urine WBC 74 H (0-5) /hpf Ur Squamous Epith Cells <1 (0-4) /hpf Calcium Oxalate Crystal Few H (None) /hpf Urine Bacteria Rare H (None) /hpf Granular Casts 1 (0) /lpf Urine Mucus Occasional H (None) /hpf Disposition Clinical Impression: Sacral decubitus ulcer, Failure to thrive Disposition[facility] Time of Disposition: 17:10
[2022-08-21 13:40] LABS: Albumin 3.4 g/dL (3.5-5.0); Calcium 10.6 mg/dL (8.4-10.2); Magnesium 2.2 mg/dL (1.6-2.3); Potassium 3.9 mmol/L (3.5-5.1); Total Bilirubin 0.6 mg/dL (0.2-1.3); Total Protein 7.2 g/dL (6.3-8.2)
[2022-08-21 13:45] LABS: Anisocytosis Slight; Basophils # (A) 0.1 k/uL (0-0.2); Basophils % (A) 1 %; Eosinophils # (A) 0.2 k/uL (0-0.7); Eosinophils % (A) 3 %; HCT 35.9 % (34.0-46.0); HGB 12.2 gm/dL (11.4-16.0); Lymphocytes # (A) 1.8 k/uL (1.0-4.8); Lymphocytes % (A) 20 %; MCH 28.6 pg (25.0-35.0); MCHC 33.9 g/dL (31.0-37.0); MCV 84.4 fL (80.0-100.0); Mean Platelet Volume 10.4; Monocytes # (A) 0.4 k/uL (0-1.0); Monocytes % (A) 4 %; Neutrophils # (A) 6.4 k/uL (1.3-7.7); Neutrophils % (A) 71 %; Platelet Count 155 k/uL (150-450); RBC 4.26 m/uL (3.80-5.40); RDW 16.1 % (11.5-15.5)
[2022-08-21 13:53] LABS: INR 1.1 (<1.2); Partial Thromboplastin Time 23.9 sec (22.0-30.0)
--- NOTE | 2022-08-21 13:56 | XR ---
EXAMINATION TYPE: XR chest 2V DATE OF EXAM: 08/21/2022 COMPARISON: 08/14/2022 INDICATION: Weakness TECHNIQUE: Frontal and lateral views of the chest are obtained. FINDINGS: The heart size is normal. The pulmonary vasculature is normal. The lungs are clear. Sternotomy wires are in the midline. IMPRESSION: 1. No acute pulmonary process.
[2022-08-21 14:42] LABS: Appearance,Urine Cloudy (Clear); Bacteria,Urine Rare /hpf; Bilirubin,Urine Negative (Negative); Blood,Urine Trace (Negative); Calcium Oxalate Crystals,Urine Few /hpf; Color,Urine Yellow; Glucose,Urine (UA) Negative (Negative); Granular Casts,Urine 1 /lpf (0); Ketones,Urine Negative (Negative); Leukocyte Esterase,Urine Large (Negative); Mucus,Urine Occasional /hpf; Nitrite,Urine Negative (Negative); PH, Urine 5.5 (5.0-8.0); Protein,Urine 1+ (Negative); RBC,Urine 5 /hpf (0-5); Specific Gravity,Urine 1.022 (1.001-1.035); Squamous Epithelial Cell,Urine <1 /hpf (0-4); Urobilinogen,Urine <2.0 mg/dL (<2.0); WBC,Urine 74 /hpf (0-5)
[2022-08-21] MEDS ORDERED: NALOXONE 0.4 MG/ML 1 ML VIAL IV PRN (17:24)
[2022-08-21] MEDS ORDERED: SODIUM CHLORIDE 0.9% 1,000 ML IV ONE (17:26)
[2022-08-21] MEDS ORDERED: IPRATROPIUM-ALBUTEROL 3 ML NEB INHALATION PRN (17:28)
[2022-08-21] MEDS ORDERED: MAGNESIUM HYDROXIDE 2,400 MG/10 ML CUP PO PRN (17:28)
--- NOTE | 2022-08-21 17:36 | P.HPIM ---
History of Present Illness H&P Date: 08/21/22 Chief Complaint: FTT Patient is a 77-year-old female with recent admission for acute urinary tract infection, and urinary retention and past medical history of hypertension and dyslipidemia presenting from residential facility for failure to thrive and worsening sacral decubitus ulcer. Patient currently denies any chest pain, shortness of breath, abdominal pain, nausea, vomiting, diarrhea, constipation, or urinary complaints. Patient is not ambulatory at baseline. Per patient's daughter, patient has not been eating or drinking well at the nursing facility. In the ED, patient's vital signs were within normal limits. Laboratory workup was mostly unremarkable except for mild hypercalcemia. UA showed large leukocyte esterase, negative nitrites. Chest x-ray showed no acute process. Patient being admitted for further workup for sacral decubitus ulcer and failure to thrive. Patient seen and examined at bedside. [] Pertinent positives and negatives as discussed in HPI, a complete review of systems was performed and all other systems are negative. Vital signs reviewed General: nontoxic, no distress, appears at stated age Derm: warm, dry, 3x3 centimeter sacral decubitus ulcer with no erythema, induration, purulence, likely stage 2/3, also multiple other decubitus ulcers on bilateral heels as well as left thoracic back. Head: atraumatic, normocephalic, symmetric Eyes: EOMI, no lid lag, anicteric sclera, pupils equal round reactive to light ENT: Nose and ears atraumatic Neck: No thyromegaly, supple Mouth: no lip lesion, mucus membranes moist Cardiovascular: S1S2 reg, systolic murmur, no edema Lungs: clear to auscultation bilateral, no rhonchi, no rales, no wheeze, no accessory muscle use Abdominal: soft, nontender to palpation, no guarding, no appreciable organomegaly Ext: no gross muscle atrophy, muscle strength muscle strength 3 out of 5 in lower extremities, no contractures Neuro: CN II-XII grossly intact Psych: Alert, oriented, appropriate affect Assessment/Plan: Failure to thrive Sacral decubitus ulcer Bilateral foot decubitus ulcers - Wound care - ESR, CRP, cultures pending - Hold antibiotics for now - Nutrition consult - Gen. surgery consult, wound care consult Chronic urinary retention, Navarrete catheter present on admission Chronic medical problems: Hypertension Dyslipidemia - Continue home medications The patient is admitted with an anticipated less than 2 midnight stay for evaluation of sacral decubitus ulcer. Surrogate decision-maker: Daughter CODE STATUS: Full code DVT prophylaxis: Subcu heparin Anticipated discharge date: 1-[address]: Back to residential A total of 55 minutes was spent on the care of this complex patient more than 50% of the time was spent in counseling and care coordination. 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 CATARACTS RONY. carpal tunnelWITH LENS IMPLANT 2007, lower back spinal fusion 2017, left knee surgery 2018., Past Anesthesia/Blood Transfusion Reactions: Postoperative Nausea & Vomiting (PONV) Additional Past Anesthesia/Blood Transfusion Reaction / Comment(s): PONV and hard to wake up Past Psychological History: Anxiety, Depression Additional Psychological History / Comment(s): . Smoking Status: Former smoker Past Alcohol Use History: None Reported Additional Past Alcohol Use History / Comment(s): QUIT 2008 WAS 1PPD smoker since age 17 or 19. She denies any medical marijuana, marijuana, street drug or alcohol use. She lives at home with her of 52 years. Past Drug Use History: None Reported - Past Family History Brother(s) Additional Family Medical History / Comment(s): Shunt has 1 brother and 1 sister but she does not have any contact with them. Patient has 3 children that are all healthy. Mother Family Medical History: Cancer Additional Family Medical History / Comment(s): . Father Family Medical History: Cancer Additional Family Medical History / Comment(s): . Medications and Allergies Home Medications Medication Instructions Recorded Confirmed Type Multivitamins, Thera [Multivitamin 1 tab PO DAILY 06/14/16 08/21/22 History (formulary)] Potassium Chloride [Klor-Con 20] 20 meq PO DAILY 07/24/18 08/21/22 History Aspirin [Children's Aspirin] 81 mg PO DAILY 01/21/19 08/21/22 History Folic Acid 1 mg PO DAILY 01/21/19 08/21/22 History Ergocalciferol [Vitamin D2 (1250 1,250 mcg PO SAMANIEGO 05/24/21 08/21/22 History Mcg = 09543 Iu)] Famotidine [Pepcid] 20 mg PO DAILY #0 tab 04/19/22 08/21/22 Rx Mirtazapine 7.5 mg PO HS 05/23/22 08/21/22 History Acetaminophen Tab [Tylenol] 650 mg PO Q6HR PRN tab 06/03/22 08/21/22 Rx Furosemide [Lasix] 40 mg PO DAILY tab 06/03/22 08/21/22 Rx Ipratropium-Albuterol Nebulize 3 ml INHALATION RT-TID PRN each 06/03/2207/26 Rx [Duoneb 0.5 mg-3 mg/3 ml Soln] Sodium Bicarbonate Tab 650 mg PO BID tab 06/03/22 08/21/22 Rx amLODIPine [Norvasc] 10 mg PO DAILY tab 06/03/22 08/21/22 Rx Pregabalin [Lyrica] 100 mg PO BID@1400,2100 #4 cap 06/21/22 08/21/22 Rx Docusate [Colace] 100 mg PO BID 08/06/22 08/21/22 History Magnesium Hydroxide [Milk of 2,400 mg PO DAILY PRN 08/06/22 08/21/22 History Magnesia] Sertraline [Zoloft] 50 mg PO DAILY 08/06/22 08/21/22 History hydrALAZINE HCL [Apresoline] 50 mg PO BID #60 tab 08/13/22 08/21/22 Rx Collagenase [Santyl Ointment] 1 applic TOPICAL DAILY PRN 08/21/22 08/21/22 History Collagenase [Santyl Ointment] 1 applic TOPICAL HS 08/21/22 08/21/22 History lidocaine HCL [lidocaine HCL 5 ml PO QID PRN 08/21/22 08/21/22 History Viscous] Allergies Allergy/AdvReac Type Severity Reaction Status Date / Time alprazolam [From Xanax] Allergy Unknown Verified 08/21/22 13:02 amlodipine [From Norvasc] Allergy Unknown Verified 08/21/22 13:02 amoxicillin trihydrate AdvReac Severe Nausea & Verified 08/21/22 13:02 [From Augmentin] Vomiting & Diarrhea potassium clavulanate AdvReac Severe Nausea & Verified 08/21/22 13:02 [From Augmentin] Vomiting & Diarrhea sulfamethoxazole AdvReac Severe affected Verified 08/21/22 13:02 [From Bactrim] muscles - couldn't move trimethoprim [From Bactrim] AdvReac Severe affected Verified 08/21/22 13:02 muscles - couldn't move diazepam [From Valium] AdvReac hard time Verified 08/21/22 13:02 coming out of anesthesia Sixycsn-TXC-LqH Reductase AdvReac leg cramps Verified 08/21/22 13:02 Inhibitor [Dfscimq-Rnq-Rjo Reductase Inhibitor] Sulfa (Sulfonamide AdvReac affected Verified 08/21/22 13:02 Antibiotics) muscles - couldn't move Physical Exam Vitals: Vital Signs Temp Pulse Resp BP Pulse Ox 08/21/22 14:01 82 16 139/62 95 08/21/22 12:52 98.0 F 81 18 142/65 92 L Intake and Output 08/21/22 08/21/22 08/21/22 06:59 14:59 22:59 Other: Weight 58.967 kg Results CBC & Chem 7: 08/21/22 13:04 08/21/22 13:04 Labs: Abnormal Lab Results - Last 24 Hours (Table) 08/21/22 08/21/22 08/21/22 Range/Units 13:04 13:04 13:04 RDW 16.1 H (11.5-15.5) % BUN 20 H (7-17) mg/dL Glucose 110 H (74-99) mg/dL Calcium 10.6 H (8.4-10.2) mg/dL Albumin 3.4 L (3.5-5.0) g/dL Urine Appearance Cloudy H (Clear) Urine Protein 1+ H (Negative) Urine Blood Trace H (Negative) Ur Leukocyte Esterase Large H (Negative) Urine WBC 74 H (0-5) /hpf Calcium Oxalate Crystal Few H (None) /hpf Urine Bacteria Rare H (None) /hpf Urine Mucus Occasional H (None) /hpf
[2022-08-21] MEDS: hydrALAZINE HCL 50 MG TAB PO SCH (20:35)
[2022-08-21] MEDS: MIRTAZAPINE 15 MG TAB PO SCH (20:36)
[2022-08-21] MEDS: Acetaminophen-Codeine 300-30mg TAB PO PRN (20:36)
[2022-08-21] MEDS: DOCUSATE 100 MG CAP PO SCH (20:36)
[2022-08-21] MEDS: PREGABALIN 100 MG CAP PO SCH (20:36)
[2022-08-21] MEDS: HEPARIN SODIUM,PORCINE/PF 5,000 UNIT/0.5 ML SYRINGE SQ SCH (23:19)
[2022-08-22] MEDS: Acetaminophen-Codeine 300-30mg TAB PO PRN ×2 (00:32→17:11)
[2022-08-22] MEDS: hydrALAZINE HCL 50 MG TAB PO SCH ×2 (08:53→21:16)
[2022-08-22] MEDS: ASPIRIN 81 MG PO SCH (08:53)
[2022-08-22] MEDS: HEPARIN SODIUM,PORCINE/PF 5,000 UNIT/0.5 ML SYRINGE SQ SCH ×3 (08:53→21:16)
[2022-08-22] MEDS: FUROSEMIDE 40 MG TAB PO SCH (08:54)
[2022-08-22] MEDS: MULTIVITAMINS, THERA 1 EACH TAB PO SCH (08:54)
[2022-08-22] MEDS: FAMOTIDINE 20 MG TAB PO SCH (08:54)
[2022-08-22] MEDS: SERTRALINE 50 MG TAB PO SCH (08:54)
[2022-08-22] MEDS: FOLIC ACID 1 MG TAB PO SCH (08:54)
[2022-08-22] MEDS: amLODIPine 10 MG TAB PO SCH (08:54)
[2022-08-22] MEDS: DOCUSATE 100 MG CAP PO SCH ×2 (08:54→21:16)
[2022-08-22 08:55] LABS: African American GFR (CKD) 76.3 (60.0-200.0); Albumin 2.9 g/dL (3.8-4.9); Anion Gap 9.5 mmol/L (10.00-18.00); BUN/Creat Ratio 19.81 Ratio (12.00-20.00); Calcium 10.2 mg/dL (8.7-10.3); Carbon Dioxide 24.9 mmol/L (20.0-27.5); Globulin 2.9 g/dL (1.6-3.3); Non-African American GFR(CKD) 65.8 (60.0-200.0); Potassium 3.4 mmol/L (3.5-5.5); Total Bilirubin 0.5 mg/dL (0.30-1.20); Total Protein 5.8 g/dL (6.2-8.2)
[2022-08-22 09:22] LABS: Basophils # (A) 0.06 X 10*3/uL (0.00-0.10); Eosinophils # (A) 0.24 X 10*3/uL (0.04-0.35); Eosinophils % (A) 3.8 %; HCT 31.6 % (37.2-46.3); HGB 10.1 g/dL (12.0-15.0); Immature Grans, Automated 0.3 %; Lymphocytes # (A) 1.53 X 10*3/uL (0.90-5.00); Lymphocytes % (A) 24.4 %; MCH 27.4 pg (27.0-32.0); MCV 85.6 fL (80.0-97.0); Monocytes # (A) 0.42 X 10*3/uL (0.20-1.00); Monocytes % (A) 6.7 %; NRBC Per 100 WBC 0 /100 WBCS (0.0-0.0); Neutrophils # (A) 3.99 X 10*3/uL (1.80-7.70); Neutrophils % (A) 63.8 %; Platelet Count 131 X 10*3/uL (140-440); RBC 3.69 X 10*6/uL (4.10-5.20); RDW 16.2 % (11.5-14.5); WBC 6.26 X 10*3/uL (4.50-10.00)
[2022-08-22 10:53] VITALS: BMI 22.3
--- NOTE | 2022-08-22 11:27 | P.GSCN ---
History of Present Illness Consult date: 08/22/22 History of present illness: CHIEF COMPLAINT: Sacral decubitus ulcer HISTORY OF PRESENT ILLNESS: This is a 77-year-old female who has a sacral decubitus ulcer. Patient reports that his been present for 2 weeks. She is currently at a half-way and is non-ambulatory. She was brought into the ER due to failure to thrive with poor oral intake, weakness and worsening of her sacral decubitus ulcer. Patient denies any history of diabetes. She denies any significant pain. Patient did report some drainage from the sacral ulcer. She denies any abdominal pain. Denies any nausea or vomiting. Denies any fever chills or sweats. PAST MEDICAL HISTORY: See below PAST SURGICAL HISTORY: See below MEDICATIONS: See below ALLERGIES: See below SOCIAL HISTORY: No illicit drug use. REVIEW OF SYSTEMS: CONSTITUTIONAL: Denies fever or chills. HEENT: Denies blurred vision, vision changes, or eye pain. Denies hemoptysis CARDIOVASCULAR: Denies chest pain or pressure. RESPIRATORY: No shortness of breath. GASTROINTESTINAL: See HPI for pertinent findings HEMATOLOGIC: Denies bleeding disorders. GENITOURINARY: Denies any blood in urine or increased urinary frequency. SKIN: Denies pruitis. Denies rash. PHYSICAL EXAM: VITAL SIGNS: Reviewed GENERAL: Well-developed in no acute distress. HEENT: No sclera icterus. Extraocular movements grossly intact. Moist buccal mucosa. Head is atraumatic, normocephalic. No nasal drainage. ABDOMEN: Soft. Nondistended. Nontender NEUROLOGIC: Awake and alert. Cranial nerves II through XII grossly intact. Skin: Large sacral decubitus ulcer with necrotic tissue and drainage. Erythema around the area noted. LABORATORY DATA: WBC 6.26 Hgb 10.1 platelets 131 Sodium is 141 potassium 3.4 creatinine 0.9 IMAGING: Chest x-ray no acute pulmonary process ASSESSMENT: 1. Sacral decubitus ulcer with necrotic tissue PLAN: -Patient scheduled for debridement of sacral decubitus ulcer today with Dr. Lopez -Keep patient nothing by mouth -Continue supportive care Physician Email Developer note has been reviewed by physician. Signing provider agrees with the documented findings, assessment, and plan of care. I have personally seen and examined the patient, reviewed the CURTAIN SUPERVISOR /PAs history, exam and MDM and agree with the assessment and plan as written. Based on total visit time, I have performed more than 50% of the visit. As above: Patient with sacral decubitus ulcer. Circumferential necrotic skin, subcutaneous fat, and superficial layers of fascia and muscle noted. The size of the area is approximately 3-4 cm in diameter. Patient's daughter would like to avoid anesthesia which is not unreasonable given her comorbidities. It is small enough that I believe bedside debridement is a reasonable option. We'll proceed with debridement at the bedside at this time. Risks of bleeding, infection, possible need for further debridements reviewed. Daughter understands and wishes to proceed. 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 CATARACTS RONY. carpal tunnelWITH LENS IMPLANT 2007, lower back spinal fusion 2018, left knee surgery 2018., Past Anesthesia/Blood Transfusion Reactions: Postoperative Nausea & Vomiting (PONV) Additional Past Anesthesia/Blood Transfusion Reaction / Comm: PONV and hard to wake up Past Psychological History: Anxiety, Depression Additional Psychological History / Comment(s): . Smoking Status: Former smoker Past Alcohol Use History: None Reported Additional Past Alcohol Use History / Comment(s): QUIT 2007 WAS 1PPD smoker since age 17 or 19. She denies any medical marijuana, marijuana, street drug or alcohol use. She lives at home with her of 52 years. Past Drug Use History: None Reported - Past Family History Brother(s) Additional Family Medical History / Comment(s): Shunt has 1 brother and 1 sister but she does not have any contact with them. Patient has 3 children that are all healthy. Mother Family Medical History: Cancer Additional Family Medical History / Comment(s): . Father Family Medical History: Cancer Additional Family Medical History / Comment(s): . Medications and Allergies Home Medications Medication Instructions Recorded Confirmed Type Multivitamins, Thera [Multivitamin 1 tab PO DAILY 06/14/16 08/21/22 History (formulary)] Potassium Chloride [Klor-Con 20] 20 meq PO DAILY 07/24/18 08/21/22 History Aspirin [Children's Aspirin] 81 mg PO DAILY 01/21/19 08/21/22 History Folic Acid 1 mg PO DAILY 01/21/19 08/21/22 History Ergocalciferol [Vitamin D2 (1250 1,250 mcg PO SAMANIEGO 05/24/21 08/21/22 History Mcg = 08951 Iu)] Famotidine [Pepcid] 20 mg PO DAILY #0 tab 04/19/22 08/21/22 Rx Mirtazapine 7.5 mg PO HS 05/23/22 08/21/22 History Acetaminophen Tab [Tylenol] 650 mg PO Q6HR PRN tab 06/03/22 08/21/22 Rx Furosemide [Lasix] 40 mg PO DAILY tab 06/03/22 08/21/22 Rx Ipratropium-Albuterol Nebulize 3 ml INHALATION RT-TID PRN each 06/03/22 08/21/22 Rx [Duoneb 0.5 mg-3 mg/3 ml Soln] Sodium Bicarbonate Tab 650 mg PO BID tab 06/03/22 08/21/22 Rx amLODIPine [Norvasc] 10 mg PO DAILY tab 06/03/22 08/21/22 Rx Pregabalin [Lyrica] 100 mg PO BID@1400,2100 #4 cap 06/21/22 08/21/22 Rx Docusate [Colace] 100 mg PO BID 08/06/22 08/21/22 History Magnesium Hydroxide [Milk of 2,400 mg PO DAILY PRN 08/06/22 08/21/22 History Magnesia] Sertraline [Zoloft] 50 mg PO DAILY 08/06/22 08/21/22 History hydrALAZINE HCL [Apresoline] 50 mg PO BID #60 tab 08/13/22 08/21/22 Rx Collagenase [Santyl Ointment] 1 applic TOPICAL DAILY PRN 08/21/22 08/21/22 History Collagenase [Santyl Ointment] 1 applic TOPICAL HS 08/21/22 08/21/22 History lidocaine HCL [lidocaine HCL 5 ml PO QID PRN 08/21/22 08/21/22 History Viscous] Allergies Allergy/AdvReac Type Severity Reaction Status Date / Time alprazolam [From Xanax] Allergy Unknown Verified 08/21/22 13:02 amlodipine [From Norvasc] Allergy Unknown Verified 08/21/22 13:02 amoxicillin trihydrate AdvReac Severe Nausea & Verified 08/21/22 13:02 [From Augmentin] Vomiting & Diarrhea potassium clavulanate AdvReac Severe Nausea & Verified 08/21/22 13:02 [From Augmentin] Vomiting & Diarrhea sulfamethoxazole AdvReac Severe affected Verified 08/21/22 13:02 [From Bactrim] muscles - couldn't move trimethoprim [From Bactrim] AdvReac Severe affected Verified 08/21/22 13:02 muscles - couldn't move diazepam [From Valium] AdvReac hard time Verified 08/21/22 13:02 coming out of anesthesia Xqvsbmo-NSN-PqR Reductase AdvReac leg cramps Verified 08/21/22 13:02 Inhibitor [Iknqztl-Pdw-Lnh Reductase Inhibitor] Sulfa (Sulfonamide AdvReac affected Verified 08/21/22 13:02 Antibiotics) muscles - couldn't move Surgical - Exam Vital Signs Temp Pulse Resp BP Pulse Ox 98.0 F 81 18 142/65 92 L 08/21/22 12:52 08/21/22 12:52 08/21/22 12:52 08/21/22 12:52 08/21/22 12:52 Results - Labs 08/22/22 05:27 08/22/22 05:27 Abnormal Lab Results - Last 24 Hours (Table) 08/21/22 08/21/22 08/21/22 Range/Units 13:04 13:04 13:04 RBC (4.10-5.20) X 10*6/uL Hgb (12.0-15.0) g/dL Hct (37.2-46.3) % RDW 16.1 H (11.5-15.5) % Plt Count (140-440) X 10*3/uL MPV (9.5-12.2) fL ESR (0-20) mm/hr Potassium (3.5-5.5) mmol/L Anion Gap (10.00-18.00) mmol/L BUN 20 H (7-17) mg/dL Glucose 110 H (74-99) mg/dL Calcium 10.6 H (8.4-10.2) mg/dL AST (13-35) U/L C-Reactive Protein (<1.0) mg/dL Total Protein (6.2-8.2) g/dL Albumin 3.4 L (3.5-5.0) g/dL Albumin/Globulin Ratio (1.60-3.17) g/dL Urine Appearance Cloudy H (Clear) Urine Protein 1+ H (Negative) Urine Blood Trace H (Negative) Ur Leukocyte Esterase Large H (Negative) Urine WBC 74 H (0-5) /hpf Calcium Oxalate Crystal Few H (None) /hpf Urine Bacteria Rare H (None) /hpf Urine Mucus Occasional H (None) /hpf 08/21/22 08/21/22 08/22/22 Range/Units 17:44 17:44 05:27 RBC 3.69 L (4.10-5.20) X 10*6/uL Hgb 10.1 L (12.0-15.0) g/dL Hct 31.6 L (37.2-46.3) % RDW 16.2 H (11.5-15.5) % Plt Count 131 L (140-440) X 10*3/uL MPV 13.0 H (9.5-12.2) fL ESR 96 H (0-20) mm/hr Potassium (3.5-5.5) mmol/L Anion Gap (10.00-18.00) mmol/L BUN (7-17) mg/dL Glucose (74-99) mg/dL Calcium (8.4-10.2) mg/dL AST (13-35) U/L C-Reactive Protein 5.3 H (<1.0) mg/dL Total Protein (6.2-8.2) g/dL Albumin (3.5-5.0) g/dL Albumin/Globulin Ratio (1.60-3.17) g/dL Urine Appearance (Clear) Urine Protein (Negative) Urine Blood (Negative) Ur Leukocyte Esterase (Negative) Urine WBC (0-5) /hpf Calcium Oxalate Crystal (None) /hpf Urine Bacteria (None) /hpf Urine Mucus (None) /hpf 08/22/22 Range/Units 05:27 RBC (4.10-5.20) X 10*6/uL Hgb (12.0-15.0) g/dL Hct (37.2-46.3) % RDW (11.5-15.5) % Plt Count (140-440) X 10*3/uL MPV (9.5-12.2) fL ESR (0-20) mm/hr Potassium 3.4 L (3.5-5.5) mmol/L Anion Gap 9.50 L (10.00-18.00) mmol/L BUN (7-17) mg/dL Glucose (74-99) mg/dL Calcium (8.4-10.2) mg/dL AST 60 H (13-35) U/L C-Reactive Protein (<1.0) mg/dL Total Protein 5.8 L (6.2-8.2) g/dL Albumin 2.9 L (3.5-5.0) g/dL Albumin/Globulin Ratio 1.00 L (1.60-3.17) g/dL Urine Appearance (Clear) Urine Protein (Negative) Urine Blood (Negative) Ur Leukocyte Esterase (Negative) Urine WBC (0-5) /hpf Calcium Oxalate Crystal (None) /hpf Urine Bacteria (None) /hpf Urine Mucus (None) /hpf Microbiology - Last 24 Hours (Table) 08/21/22 13:04 Gram Stain - Preliminary Buttock Wound Culture - Preliminary 08/21/22 13:04 Urine Culture - Preliminary Urine,Voided Diabetes panel 08/21/22 08/22/22 Range/Units 13:04 05:27 Sodium 141 141 (137-145) mmol/L Potassium 3.9 3.4 L (3.5-5.1) mmol/L Chloride 106 106 (98-107) mmol/L Carbon Dioxide 29 24.9 (22-30) mmol/L BUN 20 H 17.0 (7-17) mg/dL Creatinine 1.03 0.9 (0.52-1.04) mg/dL Glucose 110 H 83 (74-99) mg/dL Calcium 10.6 H 10.2 (8.4-10.2) mg/dL AST 29 60 H (14-36) U/L ALT 15 19 (4-34) U/L Alkaline Phosphatase 81 125 (38-126) U/L Total Protein 7.2 5.8 L (6.3-8.2) g/dL Albumin 3.4 L 2.9 L (3.5-5.0) g/dL Calcium panel 08/21/22 08/22/22 Range/Units 13:04 05:27 Calcium 10.6 H 10.2 (8.4-10.2) mg/dL Albumin 3.4 L 2.9 L (3.5-5.0) g/dL Pituitary panel 08/21/22 08/22/22 Range/Units 13:04 05:27 Sodium 141 141 (137-145) mmol/L Potassium 3.9 3.4 L (3.5-5.1) mmol/L Chloride 106 106 (98-107) mmol/L Carbon Dioxide 29 24.9 (22-30) mmol/L BUN 20 H 17.0 (7-17) mg/dL Creatinine 1.03 0.9 (0.52-1.04) mg/dL Glucose 110 H 83 (74-99) mg/dL Calcium 10.6 H 10.2 (8.4-10.2) mg/dL Adrenal panel 08/21/22 08/22/22 Range/Units 13:04 05:27 Sodium 141 141 (137-145) mmol/L Potassium 3.9 3.4 L (3.5-5.1) mmol/L Chloride 106 106 (98-107) mmol/L Carbon Dioxide 29 24.9 (22-30) mmol/L BUN 20 H 17.0 (7-17) mg/dL Creatinine 1.03 0.9 (0.52-1.04) mg/dL Glucose 110 H 83 (74-99) mg/dL Calcium 10.6 H 10.2 (8.4-10.2) mg/dL Total Bilirubin 0.6 0.50 (0.2-1.3) mg/dL AST 29 60 H (14-36) U/L ALT 15 19 (4-34) U/L Alkaline Phosphatase 81 125 (38-126) U/L Total Protein 7.2 5.8 L (6.3-8.2) g/dL Albumin 3.4 L 2.9 L (3.5-5.0) g/dL
[2022-08-22] MEDS ORDERED: POTASSIUM CHLORIDE ER 20 MEQ TAB.ER PO STA (11:28)
--- NOTE | 2022-08-22 11:28 | P.GSCN ---
History of Present Illness Consult date: 08/22/22 Reason for Consult: Sacral decubiti and bilateral heel ulcers Requesting physician: Marlo Pineda History of present illness: This is a 77-year-old woman transferred from the retirement with failure to thrive and progressive sacral decubitus. 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 CATARACTS RONY. carpal tunnelWITH LENS IMPLANT 2007, lower back spinal fusion 2017, left knee surgery 2018., Past Anesthesia/Blood Transfusion Reactions: Postoperative Nausea & Vomiting (PONV) Additional Past Anesthesia/Blood Transfusion Reaction / Comm: PONV and hard to wake up Past Psychological History: Anxiety, Depression Additional Psychological History / Comment(s): . Smoking Status: Former smoker Past Alcohol Use History: None Reported Additional Past Alcohol Use History / Comment(s): QUIT 2007 WAS 1PPD smoker since age 17 or 19. She denies any medical marijuana, marijuana, street drug or alcohol use. She lives at home with her of 52 years. Past Drug Use History: None Reported - Past Family History Brother(s) Additional Family Medical History / Comment(s): Shunt has 1 brother and 1 sister but she does not have any contact with them. Patient has 3 children that are all healthy. Mother Family Medical History: Cancer Additional Family Medical History / Comment(s): . Father Family Medical History: Cancer Additional Family Medical History / Comment(s): . Medications and Allergies Home Medications Medication Instructions Recorded Confirmed Type Multivitamins, Thera [Multivitamin 1 tab PO DAILY 06/14/16 08/21/22 History (formulary)] Potassium Chloride [Klor-Con 20] 20 meq PO DAILY 07/24/18 08/21/22 History Aspirin [Children's Aspirin] 81 mg PO DAILY 01/21/19 08/21/22 History Folic Acid 1 mg PO DAILY 01/21/19 08/21/22 History Ergocalciferol [Vitamin D2 (1250 1,250 mcg PO SAMANIEGO 05/24/21 08/21/22 History Mcg = 92012 Iu)] Famotidine [Pepcid] 20 mg PO DAILY #0 tab 04/19/22 08/21/22 Rx Mirtazapine 7.5 mg PO HS 05/23/22 08/21/22 History Acetaminophen Tab [Tylenol] 650 mg PO Q6HR PRN tab 06/03/22 08/21/22 Rx Furosemide [Lasix] 40 mg PO DAILY tab 06/03/22 08/21/22 Rx Ipratropium-Albuterol Nebulize 3 ml INHALATION RT-TID PRN each 06/03/22 08/21/22 Rx [Duoneb 0.5 mg-3 mg/3 ml Soln] Sodium Bicarbonate Tab 650 mg PO BID tab 06/03/22 08/21/22 Rx amLODIPine [Norvasc] 10 mg PO DAILY tab 06/03/22 08/21/22 Rx Pregabalin [Lyrica] 100 mg PO BID@1400,2100 #4 cap 06/21/22 08/21/22 Rx Docusate [Colace] 100 mg PO BID 08/06/22 08/21/22 History Magnesium Hydroxide [Milk of 2,400 mg PO DAILY PRN 08/06/22 08/21/22 History Magnesia] Sertraline [Zoloft] 50 mg PO DAILY 08/06/22 08/21/22 History hydrALAZINE HCL [Apresoline] 50 mg PO BID #60 tab 08/13/22 08/21/22 Rx Collagenase [Santyl Ointment] 1 applic TOPICAL DAILY PRN 08/21/22 08/21/22 History Collagenase [Santyl Ointment] 1 applic TOPICAL HS 08/21/22 08/21/22 History lidocaine HCL [lidocaine HCL 5 ml PO QID PRN 08/21/22 08/21/22 History Viscous] Allergies Allergy/AdvReac Type Severity Reaction Status Date / Time alprazolam [From Xanax] Allergy Unknown Verified 08/21/22 13:02 amlodipine [From Norvasc] Allergy Unknown Verified 08/21/22 13:02 amoxicillin trihydrate AdvReac Severe Nausea & Verified 08/21/22 13:02 [From Augmentin] Vomiting & Diarrhea potassium clavulanate AdvReac Severe Nausea & Verified 08/21/22 13:02 [From Augmentin] Vomiting & Diarrhea sulfamethoxazole AdvReac Severe affected Verified 08/21/22 13:02 [From Bactrim] muscles - couldn't move trimethoprim [From Bactrim] AdvReac Severe affected Verified 08/21/22 13:02 muscles - couldn't move diazepam [From Valium] AdvReac hard time Verified 08/21/22 13:02 coming out of anesthesia Uegvyup-CWD-HuM Reductase AdvReac leg cramps Verified 08/21/22 13:02 Inhibitor [Kteleit-Zsp-Qyj Reductase Inhibitor] Sulfa (Sulfonamide AdvReac affected Verified 08/21/22 13:02 Antibiotics) muscles - couldn't move Surgical - Exam Osteopathic Statement: *. No significant issues noted on an osteopathic structural exam other than those noted in the History and Physical/Consult. Vital Signs Temp Pulse Resp BP Pulse Ox 98.0 F 81 18 142/65 92 L 08/21/22 12:52 08/21/22 12:52 08/21/22 12:52 08/21/22 12:52 08/21/22 12:52 Patient has a sacral decubiti which is open for an area about 3.5 x 3 half centimeters. Its about 2 cm deep with at least a centimeter of undermining circumferentially. There is significant necrotic tissue and eschar almost circumferentially. On the right heel the patient has an irregular 2 x 3 cm black and superficial eschar. The left heel has about a 1 cm diameter area of erosion, fairly superficial and fairly clean. Results - Labs 08/22/22 05:27 08/22/22 05:27 Abnormal Lab Results - Last 24 Hours (Table) 08/21/22 08/21/22 08/21/22 Range/Units 13:04 13:04 13:04 RBC (4.10-5.20) X 10*6/uL Hgb (12.0-15.0) g/dL Hct (37.2-46.3) % RDW 16.1 H (11.5-15.5) % Plt Count (140-440) X 10*3/uL MPV (9.5-12.2) fL ESR (0-20) mm/hr Potassium (3.5-5.5) mmol/L Anion Gap (10.00-18.00) mmol/L BUN 20 H (7-17) mg/dL Glucose 110 H (74-99) mg/dL Calcium 10.6 H (8.4-10.2) mg/dL AST (13-35) U/L C-Reactive Protein (<1.0) mg/dL Total Protein (6.2-8.2) g/dL Albumin 3.4 L (3.5-5.0) g/dL Albumin/Globulin Ratio (1.60-3.17) g/dL Urine Appearance Cloudy H (Clear) Urine Protein 1+ H (Negative) Urine Blood Trace H (Negative) Ur Leukocyte Esterase Large H (Negative) Urine WBC 74 H (0-5) /hpf Calcium Oxalate Crystal Few H (None) /hpf Urine Bacteria Rare H (None) /hpf Urine Mucus Occasional H (None) /hpf 08/21/22 08/21/22 08/22/22 Range/Units 17:44 17:44 05:27 RBC 3.69 L (4.10-5.20) X 10*6/uL Hgb 10.1 L (12.0-15.0) g/dL Hct 31.6 L (37.2-46.3) % RDW 16.2 H (11.5-15.5) % Plt Count 131 L (140-440) X 10*3/uL MPV 13.0 H (9.5-12.2) fL ESR 96 H (0-20) mm/hr Potassium (3.5-5.5) mmol/L Anion Gap (10.00-18.00) mmol/L BUN (7-17) mg/dL Glucose (74-99) mg/dL Calcium (8.4-10.2) mg/dL AST (13-35) U/L C-Reactive Protein 5.3 H (<1.0) mg/dL Total Protein (6.2-8.2) g/dL Albumin (3.5-5.0) g/dL Albumin/Globulin Ratio (1.60-3.17) g/dL Urine Appearance (Clear) Urine Protein (Negative) Urine Blood (Negative) Ur Leukocyte Esterase (Negative) Urine WBC (0-5) /hpf Calcium Oxalate Crystal (None) /hpf Urine Bacteria (None) /hpf Urine Mucus (None) /hpf 08/22/22 Range/Units 05:27 RBC (4.10-5.20) X 10*6/uL Hgb (12.0-15.0) g/dL Hct (37.2-46.3) % RDW (11.5-15.5) % Plt Count (140-440) X 10*3/uL MPV (9.5-12.2) fL ESR (0-20) mm/hr Potassium 3.4 L (3.5-5.5) mmol/L Anion Gap 9.50 L (10.00-18.00) mmol/L BUN (7-17) mg/dL Glucose (74-99) mg/dL Calcium (8.4-10.2) mg/dL AST 60 H (13-35) U/L C-Reactive Protein (<1.0) mg/dL Total Protein 5.8 L (6.2-8.2) g/dL Albumin 2.9 L (3.5-5.0) g/dL Albumin/Globulin Ratio 1.00 L (1.60-3.17) g/dL Urine Appearance (Clear) Urine Protein (Negative) Urine Blood (Negative) Ur Leukocyte Esterase (Negative) Urine WBC (0-5) /hpf Calcium Oxalate Crystal (None) /hpf Urine Bacteria (None) /hpf Urine Mucus (None) /hpf Microbiology - Last 24 Hours (Table) 08/21/22 13:04 Gram Stain - Preliminary Buttock Wound Culture - Preliminary 08/21/22 13:04 Urine Culture - Preliminary Urine,Voided Diabetes panel 08/21/22 08/22/22 Range/Units 13:04 05:27 Sodium 141 141 (137-145) mmol/L Potassium 3.9 3.4 L (3.5-5.1) mmol/L Chloride 106 106 (98-107) mmol/L Carbon Dioxide 29 24.9 (22-30) mmol/L BUN 20 H 17.0 (7-17) mg/dL Creatinine 1.03 0.9 (0.52-1.04) mg/dL Glucose 110 H 83 (74-99) mg/dL Calcium 10.6 H 10.2 (8.4-10.2) mg/dL AST 29 60 H (14-36) U/L ALT 15 19 (4-34) U/L Alkaline Phosphatase 81 125 (38-126) U/L Total Protein 7.2 5.8 L (6.3-8.2) g/dL Albumin 3.4 L 2.9 L (3.5-5.0) g/dL Calcium panel 08/21/22 08/22/22 Range/Units 13:04 05:27 Calcium 10.6 H 10.2 (8.4-10.2) mg/dL Albumin 3.4 L 2.9 L (3.5-5.0) g/dL Pituitary panel 08/21/22 08/22/22 Range/Units 13:04 05:27 Sodium 141 141 (137-145) mmol/L Potassium 3.9 3.4 L (3.5-5.1) mmol/L Chloride 106 106 (98-107) mmol/L Carbon Dioxide 29 24.9 (22-30) mmol/L BUN 20 H 17.0 (7-17) mg/dL Creatinine 1.03 0.9 (0.52-1.04) mg/dL Glucose 110 H 83 (74-99) mg/dL Calcium 10.6 H 10.2 (8.4-10.2) mg/dL Adrenal panel 08/21/22 08/22/22 Range/Units 13:04 05:27 Sodium 141 141 (137-145) mmol/L Potassium 3.9 3.4 L (3.5-5.1) mmol/L Chloride 106 106 (98-107) mmol/L Carbon Dioxide 29 24.9 (22-30) mmol/L BUN 20 H 17.0 (7-17) mg/dL Creatinine 1.03 0.9 (0.52-1.04) mg/dL Glucose 110 H 83 (74-99) mg/dL Calcium 10.6 H 10.2 (8.4-10.2) mg/dL Total Bilirubin 0.6 0.50 (0.2-1.3) mg/dL AST 29 60 H (14-36) U/L ALT 15 19 (4-34) U/L Alkaline Phosphatase 81 125 (38-126) U/L Total Protein 7.2 5.8 L (6.3-8.2) g/dL Albumin 3.4 L 2.9 L (3.5-5.0) g/dL Assessment and Plan (1) Sacral decubitus ulcer, stage III Current Visit: Yes Status: Acute Code(s): L89.153 - PRESSURE ULCER OF SACRAL REGION, STAGE 3 SNOMED Code(s): 09547703863215 (2) Pressure ulcer of left heel, stage 2 Current Visit: Yes Status: Acute Code(s): L89.622 - PRESSURE ULCER OF LEFT HEEL, STAGE 2 SNOMED Code(s): 87635240459902 (3) Pressure ulcer of right heel, stage 2 Current Visit: Yes Status: Acute Code(s): L89.612 - PRESSURE ULCER OF RIGHT HEEL, STAGE 2 SNOMED Code(s): 28951845986616 Plan: Dr. Lopez is on consult and he will begin with debridement of the sacral decubitus. I would recommend placement of a wound VAC following his debridement. If bleeding is significant it may be necessary to simply pack with Opticel or wet to dry for 24-48 hours before [address] the wound VAC. I would place operative foam on both heels and utilize protective boots for both feet to prevent further deterioration. I would keep the patient on either side moving her frequently as much as possible. Given the patient's mental status, debilitated status, and hypoalbuminemia, her prognosis for healing of the sacral decubitus is guarded. We will be happy to follow the patient in wound care if requested. If further issues develop during her stay please feel free to contact us.
[2022-08-22] MEDS ORDERED: VANCOMYCIN IV PER PHARMACY 1 EACH MISC MISCELLANE PRN (14:17)
--- NOTE | 2022-08-22 14:23 | P.PN ---
Subjective Progress Note Date: 08/22/22 Principal diagnosis: weakness Patient feeling significantly weak. Since her left ankle fracture 3-4 month ago she has not been able to ambulate. He stated that the ankle cast was just removed a few days ago. She has not walked since then. She has 3 decubitus ulcers on the ankles and one in the lower back. The decubitus ulcers in the ankles are stage II, covered with black escar. The lower back ulcer is full of necrotic tissues and purulent discharge. No fevers. Objective - Vital Signs Vital signs: Vital Signs Temp 97.6 F 08/22/22 07:35 Pulse 63 08/22/22 07:35 Resp 16 08/22/22 07:35 BP 183/76 08/22/22 07:35 Pulse Ox 96 08/22/22 07:35 FiO2 Intake & Output 08/21/22 08/22/22 08/22/22 18:59 06:59 18:59 Output Total 400 100 320 Balance -400 -100 -320 Weight 58.967 kg 58.967 kg 58.967 kg Output: Urine 400 100 320 Uretheral (Navarrete) 400 Other: Voiding Method Indwelling Catheter Indwelling Catheter - Exam Constitutional: No acute distress, conversant, pleasant Eyes:Anicteric sclerae, moist conjunctiva, no lid-lag, PERRLA, ENMT: Oropharynx clear, no erythema, exudates Neck: Supple, FROM, no masses, or JVD, No carotid bruits, No thyromegaly Lungs: Clear to auscultation, Clear to percussion, Normal respiratory effort, no accessory muscle use Cardiovascular: Heart regular in rate and rhythm, No murmurs, gallops, or rubs, No peripheral edema Abdominal: Soft, Nontender, no guarding, rebound or rigidity, Normoactive bowel sounds, No hepatomegaly, No splenomegaly, No palpable mass Skin: Normal temperature, tone, texture, turgor, no induration, No subcutaneous nodules, No rash, lesions, No ulcers Extremities: Muscular atrophy in bilateral lower extremities. She has 3 decubitus ulcers on the ankles and one in the lower back. The decubitus ulcers in the ankles are stage II, covered with black escar. The lower back ulcer is full of necrotic tissues and purulent discharge. No digital cyanosis, No clubbing, Pedal pulses intact and symmetrical, Radial pulses intact and symmetrical, No calf tenderness Psychiatric: Alert and oriented to person, place and time, appropriate affect, intact judgement Neuro: Muscles Strength 5/5 in all 4 extremities, Sensation to light touch grossly present throughout, Cranial nerves II-XII grossly intact, no focal sensory deficits - Labs CBC & Chem 7: 08/22/22 05:27 08/22/22 05:27 Labs: Abnormal Lab Results - Last 24 Hours (Table) 08/21/22 08/21/22 08/21/22 Range/Units 13:04 17:44 17:44 RBC (4.10-5.20) X 10*6/uL Hgb (12.0-15.0) g/dL Hct (37.2-46.3) % RDW (11.5-14.5) % Plt Count (140-440) X 10*3/uL MPV (9.5-12.2) fL ESR 96 H (0-20) mm/hr Potassium (3.5-5.5) mmol/L Anion Gap (10.00-18.00) mmol/L AST (13-35) U/L C-Reactive Protein 5.3 H (<1.0) mg/dL Total Protein (6.2-8.2) g/dL Albumin (3.8-4.9) g/dL Albumin/Globulin Ratio (1.60-3.17) g/dL Urine Appearance Cloudy H (Clear) Urine Protein 1+ H (Negative) Urine Blood Trace H (Negative) Ur Leukocyte Esterase Large H (Negative) Urine WBC 74 H (0-5) /hpf Calcium Oxalate Crystal Few H (None) /hpf Urine Bacteria Rare H (None) /hpf Urine Mucus Occasional H (None) /hpf 08/22/22 08/22/22 Range/Units 05:27 05:27 RBC 3.69 L (4.10-5.20) X 10*6/uL Hgb 10.1 L (12.0-15.0) g/dL Hct 31.6 L (37.2-46.3) % RDW 16.2 H (11.5-14.5) % Plt Count 131 L (140-440) X 10*3/uL MPV 13.0 H (9.5-12.2) fL ESR (0-20) mm/hr Potassium 3.4 L (3.5-5.5) mmol/L Anion Gap 9.50 L (10.00-18.00) mmol/L AST 60 H (13-35) U/L C-Reactive Protein (<1.0) mg/dL Total Protein 5.8 L (6.2-8.2) g/dL Albumin 2.9 L (3.8-4.9) g/dL Albumin/Globulin Ratio 1.00 L (1.60-3.17) g/dL Urine Appearance (Clear) Urine Protein (Negative) Urine Blood (Negative) Ur Leukocyte Esterase (Negative) Urine WBC (0-5) /hpf Calcium Oxalate Crystal (None) /hpf Urine Bacteria (None) /hpf Urine Mucus (None) /hpf Microbiology - Last 24 Hours (Table) 08/21/22 13:04 Gram Stain - Preliminary Buttock Wound Culture - Preliminary 08/21/22 13:04 Urine Culture - Preliminary Urine,Voided Assessment and Plan Plan: Adult failure to thrive Sacral decubitus ulcer--infected Bilateral foot decubitus ulcers--not infected - Wound care - Cultures pending - Start cefepime and vacco - Nutrition consult - Gen. surgery consult--going for sacral wound debridement Chronic urinary retention, Navarrete catheter present on admission -Monitor Recent ankle fracture -Consult ortho for f/u Depression Thoughts about ''letting go'': -Consult psych Chronic medical problems: Hypertension Dyslipidemia - Continue home medications General weakness -PT and OT -Encouraged to ambulate Surrogate decision-maker: Daughter CODE STATUS: Full code DVT prophylaxis: Subcu heparin Anticipated discharge date: 3-[address]: Back to intermediate
[2022-08-22] MEDS ORDERED: VANCOMYCIN 1,250 MG in SODIUM CHLORIDE 0.9% 250 ML IVPB ONE (15:00)
[2022-08-22] MEDS: PREGABALIN 100 MG CAP PO SCH ×2 (15:19→21:16)
[2022-08-22] MEDS ORDERED: CEFEPIME 2 GM in SODIUM CHLORIDE 0.9% 100 ML IVPB SCH (16:00)
--- NOTE | 2022-08-22 18:11 | P.OP ---
Date of Procedure: 08/22/22 Procedure(s) Performed: PREOPERATIVE DIAGNOSIS: Sacral decubitus ulcer POSTOPERATIVE DIAGNOSIS: Same PROCEDURE: Excisional debridement sacral decubitus ulcer SURGEON: Jessica EBL: 5 mL ANESTHESIA: None COMPLICATIONS: None OPERATIVE PROCEDURE: Patient placed in the left decubitus position on her hospital bed. The necrotic skin and subcutaneous fat and superficial muscle was debrided sharply using a scalpel in an excisional manner. The size of the wound was 3 x 4 cm with a depth of 3 cm. Circumferentially the debridement took place extending somewhat more laterally to the left were the superficial skin was necrotic. Small areas of bleeding were controlled using direct pressure. Sterile 4 x 4 dressing applied with overlying EBD. DISPOSITION: Stable
[2022-08-22] MEDS: MIRTAZAPINE 15 MG TAB PO SCH (21:16)
[2022-08-23] MEDS: CEFEPIME 2 GM in SODIUM CHLORIDE 0.9% 100 ML IVPB SCH ×2 (04:39→17:40)
[2022-08-23] MEDS: VANCOMYCIN 1,000 MG in SODIUM CHLORIDE 0.9% 250 ML IVPB SCH ×2 (06:14→22:12)
[2022-08-23 08:52] LABS: African American GFR (CKD) 63.4 (60.0-200.0); Anion Gap 9.8 mmol/L (10.00-18.00); BUN/Creat Ratio 16.6 Ratio (12.00-20.00); Blood Urea Nitrogen 16.6 mg/dL (9.0-27.0); Calcium 9.9 mg/dL (8.7-10.3); Carbon Dioxide 23.2 mmol/L (20.0-27.5); Magnesium 1.8 mg/dL (1.5-2.4); Non-African American GFR(CKD) 54.7 (60.0-200.0); Potassium 3.5 mmol/L (3.5-5.5)
[2022-08-23] MEDS: ASPIRIN 81 MG PO SCH (09:56)
[2022-08-23] MEDS: amLODIPine 10 MG TAB PO SCH (09:56)
[2022-08-23] MEDS: HEPARIN SODIUM,PORCINE/PF 5,000 UNIT/0.5 ML SYRINGE SQ SCH ×3 (09:56→23:50)
[2022-08-23] MEDS: DOCUSATE 100 MG CAP PO SCH ×2 (09:57→20:53)
[2022-08-23] MEDS: FAMOTIDINE 20 MG TAB PO SCH (09:57)
[2022-08-23] MEDS: SERTRALINE 50 MG TAB PO SCH (09:57)
[2022-08-23] MEDS: FUROSEMIDE 40 MG TAB PO SCH (09:57)
[2022-08-23] MEDS: MULTIVITAMINS, THERA 1 EACH TAB PO SCH (09:57)
[2022-08-23] MEDS: hydrALAZINE HCL 50 MG TAB PO SCH ×2 (09:57→20:53)
[2022-08-23] MEDS: FOLIC ACID 1 MG TAB PO SCH (09:57)
[2022-08-23 10:11] LABS: Basophils # (A) 0.06 X 10*3/uL (0.00-0.10); Basophils % (A) 0.8 %; Eosinophils # (A) 0.25 X 10*3/uL (0.04-0.35); Eosinophils % (A) 3.4 %; HCT 29.8 % (37.2-46.3); HGB 9.4 g/dL (12.0-15.0); Immature Grans, Automated 0.3 %; Lymphocytes # (A) 1.64 X 10*3/uL (0.90-5.00); Lymphocytes % (A) 22.4 %; MCH 27.6 pg (27.0-32.0); MCHC 31.5 g/dL (32.0-37.0); MCV 87.6 fL (80.0-97.0); Mean Platelet Volume 13.5 fL (9.5-12.2); Monocytes # (A) 0.54 X 10*3/uL (0.20-1.00); Monocytes % (A) 7.4 %; NRBC Per 100 WBC 0 /100 WBCS (0.0-0.0); Neutrophils # (A) 4.82 X 10*3/uL (1.80-7.70); Neutrophils % (A) 65.7 %; Platelet Count 143 X 10*3/uL (140-440); RDW 16.4 % (11.5-14.5); WBC 7.33 X 10*3/uL (4.50-10.00)
--- NOTE | 2022-08-23 10:16 | P.PN ---
Subjective Progress Note Date: 08/23/22 Principal diagnosis: Sacral decubitus ulcer Patient slept well last night. Says she is having mild soreness in the sacral region but no different than yesterday. No issues with bleeding overnight. Objective - Vital Signs Vital signs: Vital Signs Temp 98.7 F 08/23/22 07:00 Pulse 44 L 08/23/22 07:00 Resp 12 08/23/22 07:00 BP 152/67 08/23/22 07:00 Pulse Ox 92 L 08/23/22 07:00 FiO2 Intake & Output 08/22/22 08/23/22 08/23/22 18:59 06:59 18:59 Intake Total 118 Output Total 580 300 Balance -462 -300 Weight 58.967 kg Intake: Oral 118 Output: Urine 580 300 Emesis 0 0 Other: Voiding Method Indwelling Catheter Indwelling Catheter - Exam Sacral wound with no active bleeding, superficial slough remains present, mild tenderness and mild erythema persist - Labs CBC & Chem 7: 08/23/22 05:14 08/23/22 05:14 Labs: Abnormal Lab Results - Last 24 Hours (Table) 08/23/22 08/23/22 Range/Units 05:14 05:14 RBC 3.40 L (4.10-5.20) X 10*6/uL Hgb 9.4 L (12.0-15.0) g/dL Hct 29.8 L (37.2-46.3) % MCHC 31.5 L (32.0-37.0) g/dL RDW 16.4 H (11.5-14.5) % MPV 13.5 H (9.5-12.2) fL Anion Gap 9.80 L (10.00-18.00) mmol/L Est GFR (CKD-EPI)NonAf 54.7 L (60.0-200.0) Microbiology - Last 24 Hours (Table) 08/21/22 13:04 Urine Culture - Final Urine,Voided 08/21/22 13:04 Blood Culture - Preliminary Blood No Growth after 24 hours 08/21/22 13:04 Gram Stain - Preliminary Buttock Wound Culture - Preliminary Gram Neg Bacilli Gram Neg Bacilli#2 Presumptive Staph aureus 08/21/22 13:04 Blood Culture - Preliminary Blood No Growth after 24 hours Assessment and Plan (1) Sacral decubitus ulcer Narrative/Plan: Continue antibiotics per infectious disease. Continue offloading and protein support. Begin wound VAC therapy today. Current Visit: Yes Status: Acute Code(s): L89.159 - PRESSURE ULCER OF SACRAL REGION, UNSPECIFIED STAGE SNOMED Code(s): 517684867
--- NOTE | 2022-08-23 14:00 | P.CN ---
Psychiatric Consult - . Consult date: 08/23/22 Consult:: 08/23/22 13:18 IDENTIFYING DATA: This patient is a 77-year-old female with significant history of depression and sacral decubitus ulcers, coming from a senior care to the hospital. HISTORY OF PRESENT ILLNESS: The patient presented to the hospital on 08/21 as a readmission from her senior care. Apparently patient was brought in for generalized weakness according to her report and not eating or drinking. Patient also had reportedly an increase in the severity of her decubitus ulcer which has been gradually worsening. Surgery has been following along and performed a surgical department of the ulcer on 08/22. Patient's nurse states that patient has been fairly appropriate and sleeping on and off during the day, not endorsing any suicidal thoughts or behavioral issues. Patient was seen today laying in bed sleeping with her beside her. Patient owns only answered some questions and appeared to have poor concentration and drifted back to sleep. She had trouble comprehending some of the questions but did does know that she is in [facility] notes her name and date of . She did not know today's date. She only follows some commands. Patient's Kendrick states that patient has been frustrated with going back and forth between the senior care and hospital and having her medications changed. Answered questions regarding treatment and medications with him. Patient denies any auditory or visual hallucinations. She denies any suicidal or homicidal ideation intent or plan. rest of history was taken from the previous CL note from Dr Adler. PAST PSYCHIATRIC HISTORY: Patient has a a history of anxiety and depression. Patient is currently on Zoloft and Remeron. Patient denies any previous psychiatric hospitalizations. Patient denies any psychiatric outpatient follow-u p. Patient denies any history of suicide attempts in the past. 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 CATARACTS RONY. carpal tunnelWITH LENS IMPLANT 2008, lower back spinal fusion 2018, left knee surgery 2018., Past Anesthesia/Blood Transfusion Reactions: Postoperative Nausea & Vomiting (PONV) Additional Past Anesthesia/Blood Transfusion Reaction / Comment(s): PONV and hard to wake up Past Psychological History: Anxiety, Depression Additional Psychological History / Comment(s): . Smoking Status: Former smoker Past Alcohol Use History: None Reported Additional Past Alcohol Use History / Comment(s): QUIT 2008 WAS 1PPD smoker since age 17 or 19. She denies any medical marijuana, marijuana, street drug or alcohol use. She lives at home with her of 52 years. Past Drug Use History: None Reported ALLERGIES: As per EMR CHEMICAL DEPENDENCY HISTORY: Patient denies any alcohol, marijuana, tobacco, or illicit drug use. FAMILY PSYCHIATRIC/SUBSTANCE USE HISTORY: No reported family psychiatric history SOCIAL HISTORY: Patient is and lives with her . They have been for 52 years. They have children together. Prior to retiring, the patient worked at [employer]. currently is at [id number]. MENTAL STATUS EXAM: General Appearance: Patient appears to have thinning hair, stated age is lethargic, poor concentration. Patient appears to have fair hygiene and grooming wearing hospital gown with poor eye contact. Behavior: Patient is calmly lying in bed without any agitated behavior. lethargic. Speech: Patient's speech is fluent and nonpressured. concrete. Mood/Affect: Patient reports their mood is "okay", affect is congruent and constricted Suicidality/Homicidality: Patient denies having any suicidal or homicidal ideation intent or plan. Perceptions: Patient denies any visual hallucinations and denies any auditory hallucinations Though content/process: [place], poverty of content. Memory and concentration: AOX2, she knows her name and also her location however does not know today's date. Poor concentration. Follows minimal commands. Cannot spell "WORLD" backwards Judgment and insight: Limited IMPRESSIONS: Delirium, likely due to multiple etiologies including medications, infection, toxic-metabolic history of depressive disorder possible underlying dementia PLAN: -At this time patient DOES NOT meet criteria for inpatient psychiatric admission. -Delirium precautions recommended with patient including - avoiding use of narcotics and STUDIO POTTER sedatives, limit anticholinergic medications when possible, frequent re-orientation, minimize use of restraints, open window shades during the day and close them at night -Would recommend the following medication changes/additions: Continue Remeron 7.5 mg by mouth at bedtime to address depression/appetite. continue with Zoloft. Please attempt to decrease tylenol 3 and any other sedatives, limit the use of BZD or opiates as this will make her delirium worst. -continue medical and surgical mgt for her med conditions -At this time psychiatry will sign off, please contact with any questions. 08/23/22 13:52
--- NOTE | 2022-08-23 15:24 | P.PN ---
Subjective Progress Note Date: 08/23/22 Principal diagnosis: weakness Feeling better, pain is improved in her lower back. States she is able to lay on her back better. No fevers or chills. Eating ok. No n/v. Objective - Vital Signs Vital signs: Vital Signs Temp 98.7 F 08/23/22 07:00 Pulse 44 L 08/23/22 07:00 Resp 12 08/23/22 07:00 BP 152/67 08/23/22 07:00 Pulse Ox 92 L 08/23/22 07:00 FiO2 Intake & Output 08/22/22 08/23/22 08/23/22 18:59 06:59 18:59 Intake Total 118 Output Total 580 300 Balance -462 -300 Weight 58.967 kg 58.967 kg Intake: Oral 118 Output: Urine 580 300 Emesis 0 0 Other: Voiding Method Indwelling Catheter Indwelling Catheter Indwelling Catheter - Exam Constitutional: No acute distress, conversant, pleasant Eyes:Anicteric sclerae, moist conjunctiva, no lid-lag, PERRLA, ENMT: Oropharynx clear, no erythema, exudates Neck: Supple, FROM, no masses, or JVD, No carotid bruits, No thyromegaly Lungs: Clear to auscultation, Clear to percussion, Normal respiratory effort, no accessory muscle use Cardiovascular: Heart regular in rate and rhythm, No murmurs, gallops, or rubs, No peripheral edema Abdominal: Soft, Nontender, no guarding, rebound or rigidity, Normoactive bowel sounds, No hepatomegaly, No splenomegaly, No palpable mass Skin: Normal temperature, tone, texture, turgor, no induration, No subcutaneous nodules, No rash, lesions, No ulcers Extremities: Muscular atrophy in bilateral lower extremities. She has 3 decubitus ulcers on the ankles and one in the lower back. The decubitus ulcers in the ankles are stage II, covered with black escar. The lower back ulcer is full of necrotic tissues and purulent discharge. No digital cyanosis, No clubbing, Pedal pulses intact and symmetrical, Radial pulses intact and symmetrical, No calf tenderness Psychiatric: Alert and oriented to person, place and time, appropriate affect, intact judgement Neuro: Muscles Strength 5/5 in all 4 extremities, Sensation to light touch grossly present throughout, Cranial nerves II-XII grossly intact, no focal sensory deficits - Labs CBC & Chem 7: 08/23/22 05:14 08/23/22 05:14 Labs: Abnormal Lab Results - Last 24 Hours (Table) 08/23/22 08/23/22 Range/Units 05:14 05:14 RBC 3.40 L (4.10-5.20) X 10*6/uL Hgb 9.4 L (12.0-15.0) g/dL Hct 29.8 L (37.2-46.3) % MCHC 31.5 L (32.0-37.0) g/dL RDW 16.4 H (11.5-14.5) % MPV 13.5 H (9.5-12.2) fL Anion Gap 9.80 L (10.00-18.00) mmol/L Est GFR (CKD-EPI)NonAf 54.7 L (60.0-200.0) Microbiology - Last 24 Hours (Table) 08/21/22 13:04 Gram Stain - Final Buttock Wound Culture - Final Escherichia coli Proteus mirabilis Methicillin resist S. aureus 08/21/22 13:04 Urine Culture - Final Urine,Voided 08/21/22 13:04 Blood Culture - Preliminary Blood No Growth after 24 hours 08/21/22 13:04 Blood Culture - Preliminary Blood No Growth after 24 hours Assessment and Plan Plan: Adult failure to thrive Sacral decubitus ulcer--infected Bilateral foot decubitus ulcers--not infected - Wound care - Cultures showing MRSA, proteus and e.coli. - Continue cefepime and vacco - Nutrition consult - Gen. surgery consult--S/P sacral wound debridement and wound vac placement 08/22 Chronic urinary retention, Navarrete catheter present on admission -Monitor Recent ankle fracture -Ortho consulted, stated that she is ok to bear weight on the ankle and they have nothing to add at this point. Depression Thoughts about ''letting go'': -Psych consulted continue zoloft and remeron Chronic medical problems: Hypertension Dyslipidemia - Continue home medications General weakness -PT and OT -Encouraged to ambulate Surrogate decision-maker: Daughter CODE STATUS: Full code DVT prophylaxis: Subcu heparin Anticipated discharge date: 3-[address]: Back to longterm
[2022-08-23] MEDS: PREGABALIN 100 MG CAP PO SCH ×2 (15:49→20:53)
[2022-08-23] MEDS: SODIUM CHLORIDE 0.9% 1,000 ML IV SCH (20:08)
[2022-08-23] MEDS: MIRTAZAPINE 15 MG TAB PO SCH (20:53)
--- NOTE | 2022-08-23 22:00 | P.CONS ---
History of Present Illness - Reason for Consult Consult date: 08/23/22 Infected sacral pressure ulcer Requesting physician: Sara Miguel - Chief Complaint weakness and worsening pressure ulcer x days - History of Present Illness Patient is a 77-year female presenting to the ER 2 days ago on 08/21/2022 from a local assisted for evaluation of generalized weakness apparently patient was noticed to be not eating or drinking and then noticed that the pressure ulcer to the sacral area was getting worse no clear history of any fever or any chills and on presentation to the hospital the patient was afebrile and no fever has been recorded subsequently patient did have a normal white count did have elevated sed rate kidney function was normal urine was positive however urine culture subsequently came back negative patient was evaluated by general surgery and the patient did have a excisional debridement of the sacral pressure ulcer cultures were obtained apparently on admission not at the time of surgical department and those cultures are currently growing E. coli Proteus and MRSA patient has been started on cefepime and vancomycin infectious disease was consulted today for further management of antibiotic therapy patient has been complaining of some pain discomfort to the sacral wound area more for the leaking to sharp moderate intensity worse with the dressing changes no foul-smelling drainage reported by the nursing staff Review of Systems Positive point has been mentioned in the HPI rest of the systems are negative Past Medical History Past Medical History: Coronary Artery Disease (CAD), Chest Pain / Angina, Hyperlipidemia, Hypertension, Osteoarthritis (OA) Additional Past Medical History / Comment(s): ARTHRITIS HEAD TO TOE- HANDS & LOWER BACK IS THE WORST-HANDS SWELL @ TIMES, urinary incontinence, "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 CATARACTS RONY. carpal tunnelWITH LENS IMPLANT 2007, lower back spinal fusion 2017, left knee surgery 2018., Past Anesthesia/Blood Transfusion Reactions: Postoperative Nausea & Vomiting (PONV) Additional Past Anesthesia/Blood Transfusion Reaction / Comm: PONV and hard to wake up Past Psychological History: Anxiety, Depression Additional Psychological History / Comment(s): . Smoking Status: Former smoker Past Alcohol Use History: None Reported Additional Past Alcohol Use History / Comment(s): QUIT 2007 WAS 1PPD smoker since age 17 or 19. She denies any medical marijuana, marijuana, street drug or alcohol use. She lives at home with her of 52 years. Past Drug Use History: None Reported - Past Family History Brother(s) Additional Family Medical History / Comment(s): Shunt has 1 brother and 1 sister but she does not have any contact with them. Patient has 3 children that are all healthy. Mother Family Medical History: Cancer Additional Family Medical History / Comment(s): . Father Family Medical History: Cancer Additional Family Medical History / Comment(s): . Medications and Allergies Home Medications Medication Instructions Recorded Confirmed Type Multivitamins, Thera [Multivitamin 1 tab PO DAILY 06/14/16 08/21/22 History (formulary)] Potassium Chloride [Klor-Con 20] 20 meq PO DAILY 07/24/18 08/21/22 History Aspirin [Children's Aspirin] 81 mg PO DAILY 01/21/19 08/21/22 History Folic Acid 1 mg PO DAILY 01/21/19 08/21/22 History Ergocalciferol [Vitamin D2 (1250 1,250 mcg PO SAMANIEGO 05/24/21 08/21/22 History Mcg = 69045 Iu)] Famotidine [Pepcid] 20 mg PO DAILY #0 tab 04/19/22 08/21/22 Rx Mirtazapine 7.5 mg PO HS 05/23/22 08/21/22 History Acetaminophen Tab [Tylenol] 650 mg PO Q6HR PRN tab 06/03/22 08/21/22 Rx Furosemide [Lasix] 40 mg PO DAILY tab 06/03/22 08/21/22 Rx Ipratropium-Albuterol Nebulize 3 ml INHALATION RT-TID PRN each 06/03/22 08/21/22 Rx [Duoneb 0.5 mg-3 mg/3 ml Soln] Sodium Bicarbonate Tab 650 mg PO BID tab 06/03/22 08/21/22 Rx amLODIPine [Norvasc] 10 mg PO DAILY tab 06/03/22 08/21/22 Rx Pregabalin [Lyrica] 100 mg PO BID@1400,2100 #4 cap 06/21/22 08/21/22 Rx Docusate [Colace] 100 mg PO BID 08/06/22 08/21/22 History Magnesium Hydroxide [Milk of 2,400 mg PO DAILY PRN 08/06/22 08/21/22 History Magnesia] Sertraline [Zoloft] 50 mg PO DAILY 08/06/22 08/21/22 History hydrALAZINE HCL [Apresoline] 50 mg PO BID #60 tab 08/13/22 08/21/22 Rx Collagenase [Santyl Ointment] 1 applic TOPICAL DAILY PRN 08/21/22 08/21/22 History Collagenase [Santyl Ointment] 1 applic TOPICAL HS 08/21/22 08/21/22 History lidocaine HCL [lidocaine HCL 5 ml PO QID PRN 08/21/22 08/21/22 History Viscous] Allergies Allergy/AdvReac Type Severity Reaction Status Date / Time alprazolam [From Xanax] Allergy Unknown Verified 08/21/22 13:02 amlodipine [From Norvasc] Allergy Unknown Verified 08/21/22 13:02 amoxicillin trihydrate AdvReac Severe Nausea & Verified 08/21/22 13:02 [From Augmentin] Vomiting & Diarrhea potassium clavulanate AdvReac Severe Nausea & Verified 08/21/22 13:02 [From Augmentin] Vomiting & Diarrhea sulfamethoxazole AdvReac Severe affected Verified 08/21/22 13:02 [From Bactrim] muscles - couldn't move trimethoprim [From Bactrim] AdvReac Severe affected Verified 08/21/22 13:02 muscles - couldn't move diazepam [From Valium] AdvReac hard time Verified 08/21/22 13:02 coming out of anesthesia Ruyyofi-DED-DoR Reductase AdvReac leg cramps Verified 08/21/22 13:02 Inhibitor [Cvnsuou-Gyy-Prp Reductase Inhibitor] Sulfa (Sulfonamide AdvReac affected Verified 08/21/22 13:02 Antibiotics) muscles - couldn't move Physical Exam Vitals: Vital Signs Temp Pulse Resp BP Pulse Ox 08/23/22 15:00 98.8 F 53 L 14 142/55 95 08/23/22 07:00 98.7 F 44 L 12 152/67 92 L 08/23/22 02:16 98.9 F 52 L 18 160/52 95 08/22/22 20:00 88 17 08/22/22 19:11 98.1 F 88 17 96/55 93 L Intake and Output 08/23/22 08/23/22 08/23/22 06:59 14:59 22:59 Intake Total 118 Output Total 300 100 Balance -300 18 Intake: Oral 118 Output: Urine 300 100 Other: Voiding Method Indwelling Catheter Weight 58.967 kg GENERAL DESCRIPTION: Elderly female lying in bed, no distress. No tachypnea or accessory muscle of respiration use. HEENT: Shows Pallor , no scleral icterus. Oral mucous membrane is dry. NECK: Trachea central, no thyromegaly. LUNGS: Unlabored breathing. Clear to auscultation anteriorly. No wheeze or crackle. HEART: S1, S2, regular rate and rhythm. No loud murmur ABDOMEN: Soft, no tenderness , guarding or rigidity, no organomegaly EXTREMITIES: No edema of feet. SKIN: stage 4 sacral ulcer with bone palpable , foul smell and some black esher NEUROLOGICAL: The patient is awake, alert, oriented x3, mood and affect normal. Results CBC & Chem 7: 08/28/22 07:04 08/29/22 05:56 Labs: Abnormal Lab Results - Last 24 Hours (Table) 08/23/22 08/23/22 Range/Units 05:14 05:14 RBC 3.40 L (4.10-5.20) X 10*6/uL Hgb 9.4 L (12.0-15.0) g/dL Hct 29.8 L (37.2-46.3) % MCHC 31.5 L (32.0-37.0) g/dL RDW 16.4 H (11.5-14.5) % MPV 13.5 H (9.5-12.2) fL Anion Gap 9.80 L (10.00-18.00) mmol/L Est GFR (CKD-EPI)NonAf 54.7 L (60.0-200.0) Microbiology - Last 24 Hours (Table) 08/21/22 13:04 Blood Culture - Preliminary Blood No Growth after 48 hours 08/21/22 13:04 Blood Culture - Preliminary Blood No Growth after 48 hours 08/21/22 13:04 Gram Stain - Final Buttock Wound Culture - Final Escherichia coli Proteus mirabilis Methicillin resist S. aureus 08/21/22 13:04 Urine Culture - Final Urine,Voided Assessment and Plan (1) Sacral osteomyelitis Current Visit: Yes Status: Acute Code(s): M46.28 - OSTEOMYELITIS OF VERTEBRA, SACRAL AND SACROCOCCYGEAL REGION SNOMED Code(s): 480327693 (2) Sacral decubitus ulcer Current Visit: Yes Status: Acute Code(s): L89.159 - PRESSURE ULCER OF SACRAL REGION, UNSPECIFIED STAGE SNOMED Code(s): 937102137 Plan: 1patient with infected sacral pressure ulcer with the superficial culture grew E. coli Proteus and MRSA in this patient history as per surgical department unfortunately no deep culture done at time of surgery patient did have bone palpable at the base of the wound suspicious for osteomyelitis of the sacrum in this patient who did have elevated sed rate. 2patient to continue with the vancomycin however we will switch cefepime to Rocephin 2 g daily. 3patient with a PICC line and outpatient IV antibiotic therapy. 4local wound care per the wound care team. We will follow on clinical condition and cultures to further adjust medication if needed Thank you for this consultation we will follow the patient along with you Time with Patient: Greater than 30
[2022-08-24] MEDS: SODIUM CHLORIDE 0.9% 1,000 ML IV SCH ×2 (04:22→15:27)
[2022-08-24 06:39] LABS: African American GFR (CKD) 82 (>60 ml/min/1.73 sqM); Non-African American GFR(CKD) 71 (>60 ml/min/1.73 sqM)
[2022-08-24] MEDS: ASPIRIN 81 MG PO SCH (08:41)
[2022-08-24] MEDS: DOCUSATE 100 MG CAP PO SCH (08:41)
[2022-08-24] MEDS: HEPARIN SODIUM,PORCINE/PF 5,000 UNIT/0.5 ML SYRINGE SQ SCH ×2 (08:41→15:29)
[2022-08-24] MEDS: hydrALAZINE HCL 50 MG TAB PO SCH (08:42)
[2022-08-24] MEDS: SERTRALINE 50 MG TAB PO SCH (08:42)
[2022-08-24] MEDS: amLODIPine 10 MG TAB PO SCH (08:42)
[2022-08-24] MEDS: FOLIC ACID 1 MG TAB PO SCH (08:42)
[2022-08-24] MEDS: MULTIVITAMINS, THERA 1 EACH TAB PO SCH (08:42)
[2022-08-24] MEDS: FUROSEMIDE 40 MG TAB PO SCH (08:42)
[2022-08-24] MEDS: FAMOTIDINE 20 MG TAB PO SCH (08:44)
[2022-08-24 11:51] LABS: Anion Gap 4 mmol/L; Blood Urea Nitrogen 15 mg/dL (7-17); Calcium 9.2 mg/dL (8.4-10.2); Carbon Dioxide 24 mmol/L (22-30); Chloride 112 mmol/L (98-107); Glucose 103 mg/dL (74-99); Potassium 3.1 mmol/L (3.5-5.1); Sodium 140 mmol/L (137-145)
--- NOTE | 2022-08-24 13:42 | P.PN ---
Subjective Progress Note Date: 08/24/22 Principal diagnosis: Infected sacral pressure ulcer She is a 77-year-old female who was sent to the ER for evaluation of worsening sacral pressure ulcer patient did have a surgical debridement of sacral pressure ulcer by general surgery culture were positive for MRSA Proteus and E. coli. On today's evaluation that is 08/24/2022, the patient denies having any fever or any chills, the patient is breathing comfortably, patient denies having any chest pain shortness of breath or cough pain to the sacral wound care is currently controlled no nausea no vomiting or diarrhea Objective - Vital Signs Vital signs: Vital Signs Temp 98.4 F 08/24/22 12:30 Pulse 53 L 08/24/22 12:30 Resp 16 08/24/22 12:30 BP 172/58 08/24/22 12:30 Pulse Ox 96 08/24/22 12:30 FiO2 Intake & Output 08/23/22 08/24/22 08/24/22 18:59 06:59 18:59 Intake Total 208 Output Total 440 500 Balance -232 -500 Weight 58.967 kg Intake: Oral 208 Output: Urine 440 500 Other: Voiding Method Indwelling Catheter Indwelling Catheter Indwelling Catheter - Exam GENERAL DESCRIPTION: An elderly female lying in bed in no distress RESPIRATORY SYSTEM: Unlabored breathing , decreased breath sounds at bases HEART: S1 S2 regular rate and rhythm , ABDOMEN: Soft , no tenderness EXTREMITIES: No edema feet - Labs CBC & Chem 7: 08/23/22 05:14 08/24/22 06:11 Labs: Abnormal Lab Results - Last 24 Hours (Table) 08/24/22 08/24/22 Range/Units 06:11 06:11 Potassium 3.1 L (3.5-5.1) mmol/L Chloride 112 H (98-107) mmol/L Glucose 103 H (74-99) mg/dL C-Reactive Protein 8.50 H (0.00-0.80) mg/dL Microbiology - Last 24 Hours (Table) 08/21/22 13:04 Gram Stain - Final Buttock Wound Culture - Final Escherichia coli Proteus mirabilis Methicillin resist S. aureus 08/21/22 13:04 Blood Culture - Preliminary Blood No Growth after 48 hours 08/21/22 13:04 Blood Culture - Preliminary Blood No Growth after 48 hours Assessment and Plan (1) Stage IV pressure ulcer of sacral region Current Visit: Yes Status: Acute Code(s): L89.154 - PRESSURE ULCER OF SACRAL REGION, STAGE 4 SNOMED Code(s): 12896675286811 Plan: 1patient with infected sacral pressure ulcer with the superficial culture grew E. coli Proteus and MRSA in this patient history as per surgical department unfortunately no deep culture done at time of surgery patient did have bone palpable at the base of the wound suspicious for osteomyelitis of the sacrum in this patient who did have elevated sed rate. 2patient to continue with the vancomycin and Rocephin 2 g daily. 3patient with a PICC line and outpatient IV antibiotic therapy on discharge. Time with Patient: Less than 30
[2022-08-24] MEDS: PREGABALIN 100 MG CAP PO SCH (15:08)
[2022-08-24] MEDS: VANCOMYCIN 1,000 MG in SODIUM CHLORIDE 0.9% 250 ML IVPB SCH (15:25)
--- NOTE | 2022-08-24 19:32 | P.PN ---
Subjective Progress Note Date: 08/24/22 CHIEF COMPLAINT: Sacral pressure ulcer HISTORY OF PRESENT ILLNESS: The patient is a 77-year-old female with sacral pressure ulcer. She is resting. She had prior debridement. Patient is in bed. Per discussion with nursing, wound VAC held for need for further debridement. ROS: No reports of nausea and vomiting. No fevers or chills. No new chest pain. Hypertensive heart disease. Diabetes type II, insulin dependent PHYSICAL EXAM: VITAL SIGNS: Reviewed CONSTITUTIONAL: Well developed. EYES: Conjuctivae without sclera icterus. Extraocular movements grossly intact. HEAD, EARS, NOSE, THROAT: Moist buccal mucosa. Head is atraumatic, normocephalic. Has hearing loss No nasal drainage. RESPIRATORY: Non-labored respirations and equal bilateral excursions. CARDIOVASCULAR: Palpable 2+ radial pulses. ABDOMEN: No peritonitis. MUSCULOSKELETAL: No gross deformity of the lower extremities noted. No clubbing. No cyanosis. SKIN: Good skin turgor. Well perfused. Has stage 3+ ulcer to muscle, possible bone. NEUROLOGIC: Cranial nerves II through XII grossly intact. No focal or lateralizing signs. PSYCH: Flat affect. CLINICAL LABS: Reviewed. ASSESSMENT: 1. Sacral pressure ulcer, Stage 3+ 2. Hypertensive heart disease. 3. Diabetes type II, insulin dependent PLAN: 1. Infectious disease for request of deep tissue/cultures. 2. Will proceed with debridement and wound vac placement. 3. Augment nutrition. Objective - Vital Signs Vital signs: Vital Signs Temp 98.4 F 08/24/22 12:30 Pulse 53 L 08/24/22 14:00 Resp 16 08/24/22 14:00 BP 172/58 08/24/22 12:30 Pulse Ox 96 08/24/22 12:30 FiO2 Intake & Output 08/24/22 08/24/22 08/25/22 06:59 18:59 06:59 Output Total 500 750 Balance -500 -750 Output: Urine 500 750 Other: Voiding Method Indwelling Catheter Indwelling Catheter - Labs CBC & Chem 7: 08/25/22 06:07 08/25/22 06:07 Labs: Abnormal Lab Results - Last 24 Hours (Table) 08/24/22 08/24/22 Range/Units 06:11 06:11 Potassium 3.1 L (3.5-5.1) mmol/L Chloride 112 H (98-107) mmol/L Glucose 103 H (74-99) mg/dL C-Reactive Protein 8.50 H (0.00-0.80) mg/dL Microbiology - Last 24 Hours (Table) 08/21/22 13:04 Blood Culture - Preliminary Blood No Growth after 72 hours 08/21/22 13:04 Blood Culture - Preliminary Blood No Growth after 72 hours 08/21/22 13:04 Gram Stain - Final Buttock Wound Culture - Final Escherichia coli Proteus mirabilis Methicillin resist S. aureus
[2022-08-25] MEDS: MIRTAZAPINE 15 MG TAB PO SCH ×2 (00:40→20:18)
[2022-08-25] MEDS: HEPARIN SODIUM,PORCINE/PF 5,000 UNIT/0.5 ML SYRINGE SQ SCH ×3 (00:40→16:21)
[2022-08-25] MEDS: PREGABALIN 100 MG CAP PO SCH ×3 (00:42→20:18)
[2022-08-25] MEDS: DOCUSATE 100 MG CAP PO SCH ×3 (00:42→20:18)
[2022-08-25] MEDS: hydrALAZINE HCL 50 MG TAB PO SCH ×3 (00:42→20:18)
[2022-08-25] MEDS ORDERED: Potassium Replacement Protocol 1 EACH MISC MISCELLANE PRN ×2 (03:27→09:41)
--- NOTE | 2022-08-25 05:08 | P.PN ---
Subjective Progress Note Date: 08/24/22 Patient is a 77-year-old female with recent admission for acute urinary tract infection, and urinary retention and past medical history of hypertension and dyslipidemia presenting from [facility] facility for failure to thrive and worsening sacral decubitus ulcer. Patient currently denies any chest pain, shortness of breath, abdominal pain, nausea, vomiting, diarrhea, constipation, or urinary complaints. Patient is not ambulatory at baseline. Per patient's daughter, patient has not been eating or drinking well at the nursing facility. In the ED, patient's vital signs were within normal limits. Laboratory workup was mostly unremarkable except for mild hypercalcemia. UA showed large leukocyt e esterase, negative nitrites. Chest x-ray showed no acute process. Patient being admitted for further workup for sacral decubitus ulcer and failure to thrive. 08/24/2022 Patient is seen and evaluated in follow-up today with infectious disease following. Patient is maintained on IV antibiotics evaluated cultures. Recommend continue with local wound care with general surgery in consultation for possible debridement of the decubitus ulcer. Patient is currently afebrile denies chest pain or shortness of breath. Patient is tolerating diet and recommend aspiration precautions and encouraged oral intake. Recommend frequent position changes every 2 hours will continue to monitor closely. Review of systems: Constitutional: No reports of fatigue, fever, or chills Cardiovascular: No reports of chest pain or palpitations Respiratory: No reports of shortness of breath or cough GI: No reports of nausea, vomiting, or diarrhea reports poor appetite : No reports of dysuria or retention Neurovascular: reports of generalized weakness All medications have been reviewed Active Medications Acetaminophen/Codeine Phosphate (Acetaminophen-Codeine 300-30mg Tab) 1 each PO Q4HR PRN PRN Reason: Moderate Pain (Scale 4 to 6) Last Admin: 08/22/22 17:11 Dose: 1 each Albuterol/Ipratropium (Ipratropium-Albuterol 3 Ml Neb) 3 ml INHALATION RT-TID PRN PRN Reason: Shortness Of Breath Or Wheezing Amlodipine Besylate (Amlodipine 10 Mg Tab) 10 mg PO DAILY [facility] Last Admin: 08/24/22 08:42 Dose: 10 mg Aspirin (Aspirin 81 Mg) 81 mg PO DAILY [facility] Last Admin: 08/24/22 08:41 Dose: 81 mg Docusate Sodium (Docusate 100 Mg Cap) 100 mg PO BID [facility] Last Admin: 08/24/22 08:41 Dose: 100 mg Ergocalciferol (Ergocalciferol 1,250 Mcg (50,000 Iu) Capsule) 1,250 mcg PO [place] [facility] Famotidine (Famotidine 20 Mg Tab) 20 mg PO DAILY [facility] Last Admin: 08/24/22 08:44 Dose: 20 mg Folic Acid (Folic Acid 1 Mg Tab) 1 mg PO DAILY [facility] Last Admin: 08/24/22 08:42 Dose: 1 mg Furosemide (Furosemide 40 Mg Tab) 40 mg PO DAILY [facility] Last Admin: 08/24/22 08:42 Dose: 40 mg Heparin Sodium (Porcine) (Heparin Sodium,Porcine/Pf 5,000 Unit/0.5 Ml Syringe) 5,000 unit SQ Q8HR [facility] Last Admin: 08/24/22 08:41 Dose: 5,000 unit Hydralazine HCl (Hydralazine Hcl 50 Mg Tab) 50 mg PO BID [facility] Last Admin: 08/24/22 08:42 Dose: 50 mg Vancomycin HCl 1,000 mg/ (Sodium Chloride) 250 mls @ 125 mls/hr IVPB Q16H [facility] Last Admin: 08/23/22 22:12 Dose: 125 mls/hr Sodium Chloride (Saline 0.9%) 1,000 mls @ 100 mls/hr IV .Q10H [facility] Last Admin: 08/24/22 04:22 Dose: 100 mls/hr Ceftriaxone Sodium 2 gm/ (Sodium Chloride) 50 mls @ 100 mls/hr IVPB Q24H [facility]; Protocol Last Admin: 08/23/22 22:12 Dose: 100 mls/hr Magnesium Hydroxide (Magnesium Hydroxide 2,400 Mg/10 Ml Cup) 2,400 mg PO DAILY PRN PRN Reason: Constipation Mirtazapine (Mirtazapine 15 Mg Tab) 7.5 mg PO HS [facility] Last Admin: 08/23/22 20:53 Dose: 7.5 mg Multivitamins (Multivitamins, Thera 1 Each Tab) 1 each PO DAILY [facility] Last Admin: 08/24/22 08:42 Dose: 1 each Naloxone HCl (Naloxone 0.4 Mg/Ml 1 Ml Vial) 0.2 mg IV Q2M PRN PRN Reason: Opioid Reversal Pregabalin (Pregabalin 100 Mg Cap) 100 mg PO BID@1400,2100 [facility] Last Admin: 08/23/22 20:53 Dose: 100 mg Sertraline HCl (Sertraline 50 Mg Tab) 50 mg PO DAILY [facility] Last Admin: 08/24/22 08:42 Dose: 50 mg Physical exam: Gen: This is a 77 rolled female who is awake, alert and oriented 2, well- developed, well-nourished, elderly-appearing female HEENT: Head is atraumatic, normocephalic. Pupils equal, round. Sclerae is anicteric. NECK: Supple. No JVD. No lymphadenopathy. No thyromegaly. LUNGS: Diminished breath sounds bilaterally with no wheezes or rhonchi. No intercostal retractions. HEART: Regular rate and rhythm. No murmur. ABDOMEN: Soft. Obese. Bowel sounds are present. No masses. No tenderness. EXTREMITIES: No pedal edema. No calf tenderness. NEUROLOGICAL: Patient is awake, alert and oriented x2. Cranial nerves 2 through 12 are grossly intact. Diffusely weak Assessment: Stage IV Sacral decubitus ulcer with previous debridement, cultures growing E. coli, Proteus, MRSA Bilateral foot ulcer Chronic urinary retention with chronic indwelling Navarrete catheter Hypertension Hyperlipidemia DVT prophylaxis GI prophylaxis Full code Plan: Recommend continue current medications and management with IV antibiotics and wound care with infectious disease following. General surgery consulted for possible I&D of the sacral decubitus ulcer Recommend to continue with local wound care per infectious disease recommendations Recommend frequent position changes every 2 hours Awaiting finalized cultures Recommend follow-up labs and replace electrolytes per protocol Encouraged oral intake and increased activity as tolerated PT/OT therapy to evaluate the patient and patient likely returning to ECF Due to multiple complex medical issues, prognosis is guarded. The impression and plan of care has been dictated by Anitha Gillespie, Nurse Practitioner as directed. Dr. Lorri MD I have performed a history and examination and MDM of this patient, discussed the same with the dictator, and agree with the dictator's assessment and plan as written ,documented as a scribe. Based on total visit time, I have performed more than 50% of the visit. Objective - Vital Signs Vital signs: Vital Signs Temp 98.7 F 08/24/22 07:00 Pulse 57 L 08/24/22 08:00 Resp 16 08/24/22 08:00 BP 140/53 08/24/22 07:00 Pulse Ox 97 12/31/22 07:00 FiO2 Intake & Output 08/23/22 08/24/22 08/24/22 18:59 06:59 18:59 Intake Total 208 Output Total 440 500 Balance -232 -500 Weight 58.967 kg Intake: Oral 208 Output: Urine 440 500 Other: Voiding Method Indwelling Catheter Indwelling Catheter Indwelling Catheter - Labs CBC & Chem 7: 08/23/22 05:14 08/24/22 06:11 Labs: Microbiology - Last 24 Hours (Table) 08/21/22 13:04 Gram Stain - Final Buttock Wound Culture - Final Escherichia coli Proteus mirabilis Methicillin resist S. aureus 08/21/22 13:04 Blood Culture - Preliminary Blood No Growth after 48 hours 08/21/22 13:04 Blood Culture - Preliminary Blood No Growth after 48 hours
[2022-08-25] MEDS: POTASSIUM CHLORIDE ER 20 MEQ TAB.ER PO SCH ×3 (06:21→09:46)
[2022-08-25] MEDS: SODIUM CHLORIDE 0.9% 1,000 ML IV SCH ×3 (06:27→23:02)
[2022-08-25 06:49] LABS: Basophils % (A) 0 %; Eosinophils # (A) 0.1 k/uL (0-0.7); Eosinophils % (A) 2 %; HCT 28.8 % (34.0-46.0); HGB 9.8 gm/dL (11.4-16.0); Hypochromasia Slight; Lymphocytes # (A) 1.3 k/uL (1.0-4.8); Lymphocytes % (A) 15 %; MCH 28.7 pg (25.0-35.0); MCV 84.5 fL (80.0-100.0); Mean Platelet Volume 10.5; Monocytes # (A) 0.5 k/uL (0-1.0); Monocytes % (A) 5 %; Neutrophils # (A) 6.8 k/uL (1.3-7.7); Neutrophils % (A) 77 %; Platelet Count 136 k/uL (150-450); RBC 3.42 m/uL (3.80-5.40); RDW 15.5 % (11.5-15.5); WBC 8.9 k/uL (3.8-10.6)
[2022-08-25 06:59] LABS: Potassium 2.8 mmol/L (3.5-5.1)
[2022-08-25 07:00] LABS: African American GFR (CKD) >90 (>60 ml/min/1.73 sqM); Anion Gap 4 mmol/L; Blood Urea Nitrogen 13 mg/dL (7-17); Calcium 9.3 mg/dL (8.4-10.2); Carbon Dioxide 24 mmol/L (22-30); Chloride 112 mmol/L (98-107); Glucose 109 mg/dL (74-99); Magnesium 1.7 mg/dL (1.6-2.3); Non-African American GFR(CKD) 81 (>60 ml/min/1.73 sqM); Sodium 140 mmol/L (137-145)
[2022-08-25] MEDS: VANCOMYCIN 1,000 MG in SODIUM CHLORIDE 0.9% 250 ML IVPB SCH ×2 (07:39→23:02)
[2022-08-25] MEDS ORDERED: ERGOCALCIFEROL 1,250 MCG (50,000 IU) CAPSULE PO SCH (09:00)
[2022-08-25] MEDS ORDERED: Magnesium Replacement Protocol 1 EACH MISC MISCELLANE PRN (09:41)
[2022-08-25] MEDS ORDERED: hydrALAZINE HCL 20 MG/ML 1 ML VIAL IVP PRN (09:44)
[2022-08-25] MEDS: FAMOTIDINE 20 MG TAB PO SCH (09:46)
[2022-08-25] MEDS: ASPIRIN 81 MG PO SCH (09:46)
[2022-08-25] MEDS: MULTIVITAMINS, THERA 1 EACH TAB PO SCH (09:46)
[2022-08-25] MEDS: amLODIPine 10 MG TAB PO SCH (09:46)
[2022-08-25] MEDS: SERTRALINE 50 MG TAB PO SCH (09:46)
[2022-08-25] MEDS: FOLIC ACID 1 MG TAB PO SCH (09:46)
[2022-08-25] MEDS: FUROSEMIDE 40 MG TAB PO SCH (09:57)
[2022-08-25] MEDS: MAGNESIUM SULFATE-D5W PMX 1 GM in DEXTROSE/WATER 1 100ML.BAG IVPB SCH ×2 (09:57→11:02)
[2022-08-25] MEDS: POTASSIUM CHLORIDE 10 MEQ in WATER FOR INJECTION 1 100ML.BAG IVPB SCH ×6 (12:23→20:15)
--- NOTE | 2022-08-25 13:20 | P.PN ---
Subjective Progress Note Date: 08/25/22 Principal diagnosis: Infected sacral pressure ulcer She is a 77-year-old female who was sent to the ER for evaluation of worsening sacral pressure ulcer patient did have a surgical debridement of sacral pressure ulcer by general surgery culture were positive for MRSA Proteus and E. coli. On today's evaluation that is 08/25/2022, the patient did spike a fever of 101F This morning I was not notified the patient is afebrile since then, the patient is breathing comfortably on a 3 L nasal cannula, patient denies having any chest pain shortness of breath or cough no abdominal pain or diarrhea Objective - Vital Signs Vital signs: Vital Signs Temp 98.8 F 08/25/22 08:50 Pulse 57 L 08/25/22 08:50 Resp 18 08/25/22 08:50 BP 160/50 08/25/22 08:50 Pulse Ox 98 08/25/22 10:58 FiO2 Intake & Output 08/24/22 08/25/22 08/25/22 18:59 06:59 18:59 Output Total 750 550 Balance -750 -550 Output: Urine 750 550 Other: Voiding Method Indwelling Catheter Indwelling Catheter - Exam GENERAL DESCRIPTION: An elderly female lying in bed in no distress RESPIRATORY SYSTEM: Unlabored breathing , decreased breath sounds at bases HEART: S1 S2 regular rate and rhythm , ABDOMEN: Soft , no tenderness EXTREMITIES: No edema feet - Labs CBC & Chem 7: 08/25/22 06:07 08/25/22 06:07 Labs: Abnormal Lab Results - Last 24 Hours (Table) 08/25/22 08/25/22 Range/Units 06:07 06:07 RBC 3.42 L (3.80-5.40) m/uL Hgb 9.8 L D (11.4-16.0) gm/dL Hct 28.8 L (34.0-46.0) % Plt Count 136 L (150-450) k/uL Potassium 2.8 L (3.5-5.1) mmol/L Chloride 112 H (98-107) mmol/L Glucose 109 H (74-99) mg/dL Microbiology - Last 24 Hours (Table) 08/21/22 13:04 Blood Culture - Preliminary Blood No Growth after 72 hours 08/21/22 13:04 Blood Culture - Preliminary Blood No Growth after 72 hours Assessment and Plan (1) Stage IV pressure ulcer of sacral region Current Visit: Yes Status: Acute Code(s): L89.154 - PRESSURE ULCER OF SACRAL REGION, STAGE 4 SNOMED Code(s): 41596088361349 Plan: 1patient with infected sacral pressure ulcer with the superficial culture grew E. coli Proteus and MRSA in this patient history as per surgical department unfortunately no deep culture done at time of surgery patient did have bone palpable at the base of the wound suspicious for osteomyelitis of the sacrum in this patient who did have elevated sed rate. 2patient to continue with the vancomycin and Rocephin 2 g daily. 3keeping in mind a new fever we will obtain blood culture CRP pro calcitonin will also check her out for influenza and covid 19 Time with Patient: Less than 30
[2022-08-25] MEDS: Acetaminophen-Codeine 300-30mg TAB PO PRN ×2 (14:32→20:30)
--- NOTE | 2022-08-25 15:31 | XR ---
EXAMINATION TYPE: XR chest 2V DATE OF EXAM: 08/25/2022 COMPARISON: 08/21/2022 HISTORY: Weakness TECHNIQUE: FINDINGS: There is no heart failure nor confluent pneumonic infiltrate. There are sternal wires. Cost ophrenic angles are fairly clear. There is some osteopenia and thoracic kyphosis with anterior wedgin g of mid thoracic vertebra. IMPRESSION: No active cardiopulmonary disease. No significant change.
--- NOTE | 2022-08-25 21:56 | P.PN ---
Subjective Progress Note Date: 08/25/22 CHIEF COMPLAINT: Sacral pressure ulcer HISTORY OF PRESENT ILLNESS: The patient is a 77-year-old female with sacral pressure ulcer. She is on antibiotics. No new complaints. ROS: No reports of nausea and vomiting. No fevers or chills. No new chest pain. Hypertensive heart disease. Diabetes type II, insulin dependent PHYSICAL EXAM: VITAL SIGNS: Reviewed CONSTITUTIONAL: Well developed. EYES: Conjuctivae without sclera icterus. Extraocular movements grossly intact. HEAD, EARS, NOSE, THROAT: Moist buccal mucosa. Head is atraumatic, normocephalic. Has hearing loss No nasal drainage. RESPIRATORY: Non-labored respirations and equal bilateral excursions. CARDIOVASCULAR: Palpable 2+ radial pulses. ABDOMEN: No peritonitis. MUSCULOSKELETAL: No gross deformity of the lower extremities noted. No clubbing. No cyanosis. SKIN: Good skin turgor. Well perfused. Has stage 3+ ulcer to muscle, possible bone. NEUROLOGIC: Cranial nerves II through XII grossly intact. No focal or lateralizing signs. PSYCH: Flat affect. CLINICAL LABS: Reviewed. Hgb stable 9.4 to 9.8, anemia. WBC normal. Potassium 2.8, hypokalemia ASSESSMENT: 1. Sacral pressure ulcer, Stage 3+ 2. Hypertensive heart disease. 3. Diabetes type II, insulin dependent 4. Anemia 5. Hypokalemia PLAN: 1. Will proceed with debridement and wound vac placement. 2. Augment nutrition. 3. Correct potassium, goal potassium 4.0. Objective - Vital Signs Vital signs: Vital Signs Temp 98.1 F 08/25/22 19:08 Pulse 110 H 08/25/22 19:08 Resp 15 08/25/22 19:08 BP 150/56 08/25/22 19:08 Pulse Ox 93 L 08/25/22 19:08 FiO2 Intake & Output 08/25/22 08/25/22 08/26/22 06:59 18:59 06:59 Intake Total 400 Output Total 550 Balance -550 400 Intake: Intake, IV Titration 400 Amount Magnesium Sulfate-D5w Pmx 200 1 gm In Dextrose/Water 1 100ml.bag @ 100 mls/hr IVPB Q1H [facility] Rx#: [id number] Potassium Chloride 10 meq 200 In Water For Injection 1 100ml.bag @ 100 mls/hr IVPB Q1HR [facility] Rx#: [id number] Output: Urine 550 Other: Voiding Method Indwelling Catheter - Labs CBC & Chem 7: 08/25/22 06:07 08/25/22 06:07 Labs: Abnormal Lab Results - Last 24 Hours (Table) 08/25/22 08/25/22 08/25/22 Range/Units 06:07 06:07 14:12 RBC 3.42 L (3.80-5.40) m/uL Hgb 9.8 L D (11.4-16.0) gm/dL Hct 28.8 L (34.0-46.0) % Plt Count 136 L (150-450) k/uL Potassium 2.8 L (3.5-5.1) mmol/L Chloride 112 H (98-107) mmol/L Glucose 109 H (74-99) mg/dL C-Reactive Protein 8.5 H (<1.0) mg/dL Microbiology - Last 24 Hours (Table) 08/21/22 13:04 Blood Culture - Preliminary Blood No Growth after 96 hours 08/21/22 13:04 Blood Culture - Preliminary Blood No Growth after 96 hours
[2022-08-26] MEDS: HEPARIN SODIUM,PORCINE/PF 5,000 UNIT/0.5 ML SYRINGE SQ SCH ×4 (01:18→23:32)
--- NOTE | 2022-08-26 02:25 | P.PN ---
Subjective Progress Note Date: 08/25/22 Patient is a 77-year-old female with recent admission for acute urinary tract infection, and urinary retention and past medical history of hypertension and dyslipidemia presenting from [facility] for failure to thrive and worsening sacral decubitus ulcer. Patient currently denies any chest pain, shortness of breath, abdominal pain, nausea, vomiting, diarrhea, constipation, or urinary complaints. Patient is not ambulatory at baseline. Per patient's daughter, patient has not been eating or drinking well at the nursing facility. In the ED, patient's vital signs were within normal limits. Laboratory workup was mostly unremarkable except for mild hypercalcemia. UA showed large leukocyt e esterase, negative nitrites. Chest x-ray showed no acute process. Patient being admitted for further workup for sacral decubitus ulcer and failure to thrive. 08/24/2022 Patient is seen and evaluated in follow-up today with infectious disease following. Patient is maintained on IV antibiotics evaluated cultures. Recommend continue with local wound care with general surgery in consultation for possible debridement of the decubitus ulcer. Patient is currently afebrile denies chest pain or shortness of breath. Patient is tolerating diet and recommend aspiration precautions and encouraged oral intake. Recommend frequent position changes every 2 hours will continue to monitor closely. 08/25/2022 Patient is seen and evaluated in follow-up today currently nothing by mouth as patient was tentatively scheduled to undergo debridement of the sacral ulcer with general surgery today although potassium low at 24 surgical debridement in 24 hours.. WBC remains normal 8.9 hemoglobin is stable at 9.8, sodium is 140, potassium is 2.8 and will replace, magnesium is 1.7. Patient continues on IV antibiotics with infectious disease following. Patient will need PICC line and outpatient antibiotics. Patient plans to return to rehab once stabilized discharge. Patient is currently afebrile denies chest pain or worsening shortness of breath. Patient reports she is tired. Review of systems: Constitutional: No reports of fatigue, fever, or chills Cardiovascular: No reports of chest pain or palpitations Respiratory: No reports of shortness of breath or cough GI: No reports of nausea, vomiting, or diarrhea reports poor appetite : No reports of dysuria or retention Neurovascular: reports of generalized weakness All medications have been reviewed Active Medications Acetaminophen/Codeine Phosphate (Acetaminophen-Codeine 300-30mg Tab) 1 each PO Q4HR PRN PRN Reason: Moderate Pain (Scale 4 to 6) Last Admin: 08/22/22 17:11 Dose: 1 each Albuterol/Ipratropium (Ipratropium-Albuterol 3 Ml Neb) 3 ml INHALATION RT-TID PRN PRN Reason: Shortness Of Breath Or Wheezing Amlodipine Besylate (Amlodipine 10 Mg Tab) 10 mg PO DAILY [facility] Last Admin: 08/24/22 08:42 Dose: 10 mg Aspirin (Aspirin 81 Mg) 81 mg PO DAILY [facility] Last Admin: 08/24/22 08:41 Dose: 81 mg Docusate Sodium (Docusate 100 Mg Cap) 100 mg PO BID [facility] Last Admin: 08/25/22 00:42 Dose: 100 mg Ergocalciferol (Ergocalciferol 1,250 Mcg (50,000 Iu) Capsule) 1,250 mcg PO [place]ANIEGO [facility] Famotidine (Famotidine 20 Mg Tab) 20 mg PO DAILY [facility] Last Admin: 08/24/22 08:44 Dose: 20 mg Folic Acid (Folic Acid 1 Mg Tab) 1 mg PO DAILY [facility] Last Admin: 08/24/22 08:42 Dose: 1 mg Furosemide (Furosemide 40 Mg Tab) 40 mg PO DAILY [facility] Last Admin: 08/24/22 08:42 Dose: 40 mg Heparin Sodium (Porcine) (Heparin Sodium,Porcine/Pf 5,000 Unit/0.5 Ml Syringe) 5,000 unit SQ Q8HR [facility] Last Admin: 08/25/22 08:02 Dose: 5,000 unit Hydralazine HCl (Hydralazine Hcl 50 Mg Tab) 50 mg PO BID [facility] Last Admin: 08/25/22 00:42 Dose: 50 mg Vancomycin HCl 1,000 mg/ (Sodium Chloride) 250 mls @ 125 mls/hr IVPB Q16H [facility] Last Admin: 08/25/22 07:39 Dose: 125 mls/hr Sodium Chloride (Saline 0.9%) 1,000 mls @ 100 mls/hr IV .Q10H [facility] Last Admin: 08/25/22 06:27 Dose: 100 mls/hr Ceftriaxone Sodium 2 gm/ (Sodium Chloride) 50 mls @ 100 mls/hr IVPB Q24H [facility]; Protocol Last Admin: 08/25/22 06:28 Dose: 100 mls/hr Magnesium Hydroxide (Magnesium Hydroxide 2,400 Mg/10 Ml Cup) 2,400 mg PO DAILY PRN PRN Reason: Constipation Mirtazapine (Mirtazapine 15 Mg Tab) 7.5 mg PO HS [facility] Last Admin: 08/25/22 00:40 Dose: 7.5 mg Miscellaneous Information (Potassium Replacement Protocol 1 Each Misc) 1 each MIS[place] DAILY PRN; Protocol PRN Reason: Per Protocol Multivitamins (Multivitamins, Thera 1 Each Tab) 1 each PO DAILY [facility] Last Admin: 08/24/22 08:42 Dose: 1 each Naloxone HCl (Naloxone 0.4 Mg/Ml 1 Ml Vial) 0.2 mg IV Q2M PRN PRN Reason: Opioid Reversal Pregabalin (Pregabalin 100 Mg Cap) 100 mg PO BID@1400,2100 [facility] Last Admin: 08/25/22 00:42 Dose: 100 mg Sertraline HCl (Sertraline 50 Mg Tab) 50 mg PO DAILY [facility] Last Admin: 08/24/22 08:42 Dose: 50 mg Physical exam: Gen: This is a 77 rolled female who is asleep although arousable, alert and oriented 2, well-developed, well-nourished, elderly-appearing female HEENT: Head is atraumatic, normocephalic. Pupils equal, round. Sclerae is anicteric. NECK: Supple. No JVD. No lymphadenopathy. No thyromegaly. LUNGS: Diminished breath sounds bilaterally with no wheezes or rhonchi. No intercostal retractions. HEART: Regular rate and rhythm. No murmur. ABDOMEN: Soft. Obese. Bowel sounds are present. No masses. No tenderness. EXTREMITIES: No pedal edema. No calf tenderness. NEUROLOGICAL: Patient is awake, alert and oriented x2. Cranial nerves 2 through 12 are grossly intact. Diffusely weak Assessment: Stage IV Sacral decubitus ulcer with previous debridement, cultures growing E. coli, Proteus, MRSA Bilateral foot ulcer Chronic urinary retention with chronic indwelling Navarrete catheter Hypertension Hyperlipidemia DVT prophylaxis GI prophylaxis Full code Plan: Recommend continue current medications and management with IV antibiotics and wound care with infectious disease following. General surgery consulted for possible I&D of the sacral decubitus ulcer, being planned for 08/26/2022 Recommend to continue with local wound care per infectious disease recommendations Recommend frequent position changes every 2 hours Awaiting finalized cultures, PICC line ordered Recommend follow-up labs and replace electrolytes per protocol, potassium was found to be 2.8 and magnesium was 1.7 and will replace with follow-up labs in the a.m. Encouraged oral intake and increased activity as tolerated PT/OT therapy to evaluate the patient and patient likely returning to ECF Due to multiple complex medical issues, prognosis is guarded. The impression and plan of care has been dictated by Anitha Gillespie, Nurse Practitioner as directed. Dr. Lorri MD I have performed a history and examination and MDM of this patient, discussed the same with the dictator, and agree with the dictator's assessment and plan as written ,documented as a scribe. Based on total visit time, I have performed more than 50% of the visit. Objective - Vital Signs Vital signs: Vital Signs Temp 98.8 F 08/25/22 08:50 Pulse 57 L 08/25/22 08:50 Resp 18 08/25/22 08:50 BP 160/50 08/25/22 08:50 Pulse Ox 94 L 08/25/22 08:50 FiO2 Intake & Output 08/24/22 08/25/22 08/25/22 18:59 06:59 18:59 Output Total 750 550 Balance -750 -550 Output: Urine 750 550 Other: Voiding Method Indwelling Catheter Indwelling Catheter - Labs CBC & Chem 7: 08/25/22 06:07 08/25/22 23:35 Labs: Abnormal Lab Results - Last 24 Hours (Table) 08/24/22 08/24/22 08/25/22 Range/Units 06:11 06:11 06:07 RBC (3.80-5.40) m/uL Hgb (11.4-16.0) gm/dL Hct (34.0-46.0) % Plt Count (150-450) k/uL Potassium 3.1 L 2.8 L (3.5-5.1) mmol/L Chloride 112 H 112 H (98-107) mmol/L Glucose 103 H 109 H (74-99) mg/dL C-Reactive Protein 8.50 H (0.00-0.80) mg/dL 08/25/22 Range/Units 06:07 RBC 3.42 L (3.80-5.40) m/uL Hgb 9.8 L D (11.4-16.0) gm/dL Hct 28.8 L (34.0-46.0) % Plt Count 136 L (150-450) k/uL Potassium (3.5-5.1) mmol/L Chloride (98-107) mmol/L Glucose (74-99) mg/dL C-Reactive Protein (0.00-0.80) mg/dL Microbiology - Last 24 Hours (Table) 08/21/22 13:04 Blood Culture - Preliminary Blood No Growth after 72 hours 08/21/22 13:04 Blood Culture - Preliminary Blood No Growth after 72 hours
[2022-08-26 06:37] LABS: African American GFR (CKD) >90 (>60 ml/min/1.73 sqM); Anion Gap 4 mmol/L; Blood Urea Nitrogen 14 mg/dL (7-17); Calcium 9.2 mg/dL (8.4-10.2); Carbon Dioxide 20 mmol/L (22-30); Chloride 114 mmol/L (98-107); Glucose 96 mg/dL (74-99); Non-African American GFR(CKD) 86 (>60 ml/min/1.73 sqM); Potassium 4.2 mmol/L (3.5-5.1); Sodium 138 mmol/L (137-145)
[2022-08-26 06:42] LABS: Basophils % (A) 1 %; Eosinophils # (A) 0.2 k/uL (0-0.7); Eosinophils % (A) 2 %; HCT 29.4 % (34.0-46.0); HGB 9.4 gm/dL (11.4-16.0); Hypochromasia Marked; Lymphocytes % (A) 12 %; MCHC 31.9 g/dL (31.0-37.0); MCV 87.7 fL (80.0-100.0); Mean Platelet Volume 10.7; Monocytes # (A) 0.4 k/uL (0-1.0); Monocytes % (A) 5 %; Neutrophils # (A) 6.4 k/uL (1.3-7.7); Neutrophils % (A) 80 %; Platelet Count 121 k/uL (150-450); RBC 3.35 m/uL (3.80-5.40); RDW 15.7 % (11.5-15.5)
[2022-08-26] MEDS: ASPIRIN 81 MG PO SCH (08:47)
[2022-08-26] MEDS: amLODIPine 10 MG TAB PO SCH (08:47)
[2022-08-26] MEDS: FAMOTIDINE 20 MG TAB PO SCH (08:47)
[2022-08-26] MEDS: SERTRALINE 50 MG TAB PO SCH (08:47)
[2022-08-26] MEDS: FUROSEMIDE 40 MG TAB PO SCH (08:47)
[2022-08-26] MEDS: POTASSIUM CHLORIDE ER 20 MEQ TAB.ER PO SCH (08:47)
[2022-08-26] MEDS: hydrALAZINE HCL 50 MG TAB PO SCH ×2 (08:47→22:22)
[2022-08-26] MEDS: MAGNESIUM OXIDE 400 MG TAB PO SCH (08:48)
[2022-08-26] MEDS: DOCUSATE 100 MG CAP PO SCH ×2 (08:48→22:22)
[2022-08-26] MEDS: FOLIC ACID 1 MG TAB PO SCH (08:48)
[2022-08-26] MEDS: MULTIVITAMINS, THERA 1 EACH TAB PO SCH (08:48)
[2022-08-26] MEDS ORDERED: LIDOCAINE 1% INJ 10MG/ML (5 ML VIAL-PF) SQ ONE (11:02)
--- NOTE | 2022-08-26 12:10 | IR ---
PICC LINE PLACEMENT: HISTORY: Infection requiring long-term antibiotic therapy PROCEDURE: Ultrasound and fluoroscopic guidance of PICC line placement. COMPLICATIONS: None ANESTHESIA: 1. 1% Lidocaine locally. FINDINGS/TECHNIQUE: The procedure was explained to the patient. The risks, complications, benefits and alternatives were discussed and any questions were answered. Informed consent was obtained. The patient was placed supine on the fluoroscopic table and prepped and draped in the usual sterile fash ion. Utilizing a 21 gauge needle and sonographic and fluoroscopic guidance, access in the left basi lic vein was achieved and there is placement of a 0.018 guidewire. The vein is patent. A 4-F sheath was placed over the guidewire. The guidewire and dilator were removed and a 4-F. PICC line was plac ed through the sheath with the tip at the level of the SVC. The sheath was removed, the catheter was flushed and sutured into position. The patient was stable throughout the procedure and remained sta ble upon discharge from the Department of Radiology. The vein puncture was patent under ultrasound. A correa scale image was obtained to document patency of the vein punctured. All elements of the maximal barrier technique were utilized. FLUOROSCOPY TIME: 0.1 minutes and one image submitted IMPRESSION: Successful PICC line placement under ultrasound and fluoroscopic guidance.
[2022-08-26] MEDS: SODIUM CHLORIDE 0.9% 1,000 ML IV SCH ×2 (13:47→23:33)
[2022-08-26] MEDS: PREGABALIN 100 MG CAP PO SCH ×2 (13:48→22:22)
[2022-08-26] MEDS: VANCOMYCIN 1,000 MG in SODIUM CHLORIDE 0.9% 250 ML IVPB SCH (13:57)
--- NOTE | 2022-08-26 15:02 | P.PN ---
Subjective Progress Note Date: 08/26/22 Principal diagnosis: Infected sacral pressure ulcer She is a 77-year-old female who was sent to the ER for evaluation of worsening sacral pressure ulcer patient did have a surgical debridement of sacral pressure ulcer by general surgery culture were positive for MRSA Proteus and E. coli. On today's evaluation that is 08/26/2022, the patient is afebrile today, the patient is breathing comfortably on the 3 L nasal cannula, denies any chest pain or shortness when she did have a congested cough no no vomiting or diarrhea has been reported by the nursing staff Objective - Vital Signs Vital signs: Vital Signs Temp 97.9 F 08/26/22 13:40 Pulse 66 08/26/22 13:40 Resp 20 08/26/22 13:40 BP 148/57 08/26/22 13:40 Pulse Ox 90 L 08/26/22 13:40 FiO2 Intake & Output 08/25/22 08/26/22 08/26/22 18:59 06:59 18:59 Intake Total 400 Output Total 600 Balance 400 -600 Intake: Intake, IV Titration 400 Amount Magnesium Sulfate-D5w Pmx 200 1 gm In Dextrose/Water 1 100ml.bag @ 100 mls/hr IVPB Q1H [facility] Rx#: [id number] Potassium Chloride 10 meq 200 In Water For Injection 1 100ml.bag @ 100 mls/hr IVPB Q1HR [facility] Rx#: [id number] Output: Urine 600 Emesis 0 Other: Voiding Method Indwelling Catheter Indwelling Catheter - Exam GENERAL DESCRIPTION: An elderly female lying in bed in no distress RESPIRATORY SYSTEM: Unlabored breathing , decreased breath sounds at bases HEART: S1 S2 regular rate and rhythm , ABDOMEN: Soft , no tenderness Sacral pressure ulcer did have some necrotic tissue and foul-smelling EXTREMITIES: No edema feet - Labs CBC & Chem 7: 08/26/22 06:08 08/26/22 06:08 Labs: Abnormal Lab Results - Last 24 Hours (Table) 08/25/22 08/25/22 08/26/22 Range/Units 14:12 14:12 06:08 RBC (3.80-5.40) m/uL Hgb (11.4-16.0) gm/dL Hct (34.0-46.0) % RDW (11.5-15.5) % Plt Count (150-450) k/uL Chloride 114 H (98-107) mmol/L Carbon Dioxide 20 L (22-30) mmol/L C-Reactive Protein 8.5 H (<1.0) mg/dL Procalcitonin 0.27 H (0.02-0.09) ng/mL 08/26/22 Range/Units 06:08 RBC 3.35 L (3.80-5.40) m/uL Hgb 9.4 L (11.4-16.0) gm/dL Hct 29.4 L (34.0-46.0) % RDW 15.7 H (11.5-15.5) % Plt Count 121 L (150-450) k/uL Chloride (98-107) mmol/L Carbon Dioxide (22-30) mmol/L C-Reactive Protein (<1.0) mg/dL Procalcitonin (0.02-0.09) ng/mL Microbiology - Last 24 Hours (Table) 08/21/22 13:04 Blood Culture - Preliminary Blood No Growth after 96 hours 08/21/22 13:04 Blood Culture - Preliminary Blood No Growth after 96 hours Assessment and Plan (1) Stage IV pressure ulcer of sacral region Current Visit: Yes Status: Acute Code(s): L89.154 - PRESSURE ULCER OF SACRAL REGION, STAGE 4 SNOMED Code(s): 25105565769440 Plan: 1patient with infected sacral pressure ulcer with the superficial culture grew E. coli Proteus and MRSA in this patient history as per surgical department unfortunately no deep culture done at time of surgery patient did have bone palpable at the base of the wound suspicious for osteomyelitis of the sacrum in this patient who did have elevated sed rate. 2patient to continue with the vancomycin and Rocephin 2 g daily. 3patient did have a new fever yesterday that has resolved chest x-ray has been negative for any pneumonia influenza and covid testing negative, awaiting further surgical debridement and deep culture Time with Patient: Less than 30
[2022-08-26] MEDS ORDERED: IV FLUID CONTINUATION 300 ML IV ONE (15:06)
[2022-08-26] MEDS ORDERED: ALBUTEROL NEBULIZED 2.5 MG/3 ML INHALATION ONE (15:48)
[2022-08-26] MEDS ORDERED: fentaNYL (PF) 50 MCG/ML 2 ML AMP ONE (15:58)
[2022-08-26] MEDS ORDERED: LIDOCAINE 2% INJ 20 MG/ML (2 ML VIAL) ONE (15:58)
[2022-08-26] MEDS ORDERED: HEPARIN SODIUM,PORCINE 5,000 UNIT/ML 1 ML VIAL ONE (15:58)
[2022-08-26] MEDS ORDERED: PROPOFOL 10 MG/ML 20 ML VIAL IV ONE (15:58)
[2022-08-26] MEDS ORDERED: SUCCINYLCHOLINE CHLORIDE 200 MG/10 ML VIAL IV ONE (15:58)
[2022-08-26] MEDS ORDERED: LACTATED RINGERS 1,000 ML IV ONE (16:25)
[2022-08-26] MEDS ORDERED: BUPIVACAIN-EPI 0.25%-1:200,000 30 ML VIAL SQ ONE (16:31)
--- NOTE | 2022-08-26 17:22 | P.OP ---
Date of Procedure: 08/26/22 Description of Procedure: SURGEON: JOSSELIN GREY MD PANEL MACHINE OPERATOR: NONE. PREOPERATIVE DIAGNOSES: 1. Unstageable sacrococcygeal ulcer. POSTOPERATIVE DIAGNOSES: 1. Stage IV sacrococcygeal ulcer to bone 6 cm width x 5 cm length, 2 cm depth, 3 cm undermining left soft tissue flap 2. Osteomyelitis sacrococcygeal bone OPERATION: 1. Sharp excisional debridement with blade and scissor of 6 x 5 x 2 cm sacrococcygeal wound to muscle and sacral bone. 2. Water pulse lavage debridement of sacrococcygeal wound 6 x 5 x 2 cm to muscle and bone, 1.5 L normal saline 3. Bone biopsy of coccyx, deep biopsy. 4. Wound VAC placement, 6 x 5 x 2 cm, small foam, -125 mmHg continuous ANESTHESIA: General. ESTIMATED BLOOD LOSS: 50 mL. COMPLICATIONS: None. SPECIMENS: 1. Bone biopsy, sacrum 2. Soft tissue culture of the sacrococcygeal ulcer 3. Deep soft tissue wound cultures with swab FINDINGS: 1. An 6 x 5 x 2 cm sacrococcygeal ulcer. 2. Coccyx bone exposed consistent with stage IV sacrococcygeal ulcer. 3. Soft coccygeal bone, highly suspicious for osteomyelitis also sent. INDICATIONS: The patient is an 77-year-old female was found to have unstageable sacrococcygeal ulcer. Given the moderate soft tissue breakdown to muscle and bone, osteomyelitis could not be excluded. Benefits and risks were discussed with the patient and family. Informed consent was obtained. DESCRIPTION: Patient was brought to the operating room, initially placed supine. After general induction, she was repositioned in the right lateral decubitus position. The patient was also on schedule antibiotics. The buttocks and sacrococcygeal area were prepped and draped in a standard sterile fashion using Betadine. After a timeout protocol, attention was brought to the depth of the wound whereby moderate necrosis with black, brown to yellow tissue exudate and slough was found along the surface of the sacrococcygeal wound. The wound was measured to a depth of 2 cm with dimension of 6 cm length, 5 cm width undermining along the left lateral aspects of at least 3 cm as well. Using a sharp excisional debridement with a #10 blade, the necrotic tissue was excised to healthy bleeding tissue to the the muscle. At the coccyx, the bone was exposed. Bone biopsy was obtained using a rongeur. The tail of the coccyx bone was very soft, highly suspicious for clinical osteomyelitis. Next using a combination of #10 blade, levyette, the periphery of the wound was also cleared of any fibrinous deposits. Using a blade, sharp excisional debridement down to healthy dermis and subcutaneous tissue was also performed. Bleeding was checked with electro Bovie cautery. 1.5 Liter of water jet pulse lavage was performed along the wound for mechanically debridement. Wound VAC sponges, small was placed along the depth of the wound after placing Adaptic along the base. The dressing was set to -125 mmHg pressure without leak, low suction, continuous. She was awoken and taken to the postanesthesia care unit in stable condition. Recommend wound care center for chronic wound. Thank you for allowing me to participate in the care of care your patient.
[2022-08-26] MEDS ORDERED: HYDROmorphone 0.5 MG/0.5 ML SYRINGE IVP ONE (18:00)
[2022-08-26] MEDS ORDERED: ACETAMINOPHEN IV (For NPO) 1,000 MG/100 ML VIAL IVPB ONE (18:50)
--- NOTE | 2022-08-26 21:19 | P.PN ---
Progress Note - Text Progress Note Date: 08/26/22 Daughter describes concern for poor oral intake. Daughter also reports moderate decline in appetite and diet in the past few months. Surgical options reviewed including EGD with PEG tube placement. Otherwise, recommend swallow study and calorie count for assessment. Recommend augment nutrition for wound healing.
[2022-08-26] MEDS: MIRTAZAPINE 15 MG TAB PO SCH (22:23)
[2022-08-27] MEDS: VANCOMYCIN 1,000 MG in SODIUM CHLORIDE 0.9% 250 ML IVPB SCH ×2 (05:51→21:24)
--- NOTE | 2022-08-27 06:28 | P.PN ---
Subjective Progress Note Date: 08/26/22 Patient is a 77-year-old female with recent admission for acute urinary tract infection, and urinary retention and past medical history of hypertension and dyslipidemia presenting from [facility] facility for failure to thrive and worsening sacral decubitus ulcer. Patient currently denies any chest pain, shortness of breath, abdominal pain, nausea, vomiting, diarrhea, constipation, or urinary complaints. Patient is not ambulatory at baseline. Per patient's daughter, patient has not been eating or drinking well at the nursing facility. In the ED, patient's vital signs were within normal limits. Laboratory workup was mostly unremarkable except for mild hypercalcemia. UA showed large leukocyt e esterase, negative nitrites. Chest x-ray showed no acute process. Patient being admitted for further workup for sacral decubitus ulcer and failure to thrive. 08/24/2022 Patient is seen and evaluated in follow-up today with infectious disease following. Patient is maintained on IV antibiotics evaluated cultures. Recommend continue with local wound care with general surgery in consultation for possible debridement of the decubitus ulcer. Patient is currently afebrile denies chest pain or shortness of breath. Patient is tolerating diet and recommend aspiration precautions and encouraged oral intake. Recommend frequent position changes every 2 hours will continue to monitor closely. 08/25/2022 Patient is seen and evaluated in follow-up today currently nothing by mouth as patient was tentatively scheduled to undergo debridement of the sacral ulcer with general surgery today although potassium low at 24 surgical debridement in 24 hours.. WBC remains normal 8.9 hemoglobin is stable at 9.8, sodium is 140, potassium is 2.8 and will replace, magnesium is 1.7. Patient continues on IV antibiotics with infectious disease following. Patient will need PICC line and outpatient antibiotics. Patient plans to return to rehab once stabilized discharge. Patient is currently afebrile denies chest pain or worsening shortness of breath. Patient reports she is tired. 08/26/2022 Patient is seen in follow-up this morning currently sleeping although arousable. Patient is nothing by mouth as patient is scheduled to undergo debridement along with T2 tissue biopsies and bone biopsy of her stage IV sacral ulcer with general surgery. Labs reviewed and electrolytes including potassium and magnesium replaced and within normal limits today. Patient is afebrile denies chest pain or shortness of breath. Infectious disease following an patient is maintained on IV antibiotics as well. Review of systems: Constitutional: No reports of fatigue, fever, or chills Cardiovascular: No reports of chest pain or palpitations Respiratory: No reports of shortness of breath or cough GI: No reports of nausea, vomiting, or diarrhea reports poor appetite : No reports of dysuria or retention Neurovascular: reports of generalized weakness All medications have been reviewed Active Medications Acetaminophen/Codeine Phosphate (Acetaminophen-Codeine 300-30mg Tab) 1 each PO Q4HR PRN PRN Reason: Moderate Pain (Scale 4 to 6) Last Admin: 08/25/22 20:30 Dose: 1 each Albuterol/Ipratropium (Ipratropium-Albuterol 3 Ml Neb) 3 ml INHALATION RT-TID PRN PRN Reason: Shortness Of Breath Or Wheezing Amlodipine Besylate (Amlodipine 10 Mg Tab) 10 mg PO DAILY [facility] Last Admin: 08/26/22 08:47 Dose: 10 mg Aspirin (Aspirin 81 Mg) 81 mg PO DAILY [facility] Last Admin: 08/26/22 08:47 Dose: Not Given Docusate Sodium (Docusate 100 Mg Cap) 100 mg PO BID [facility] Last Admin: 08/26/22 08:48 Dose: Not Given Ergocalciferol (Ergocalciferol 1,250 Mcg (50,000 Iu) Capsule) 1,250 mcg PO [place] [facility] Last Admin: 08/25/22 09:46 Dose: 1,250 mcg Famotidine (Famotidine 20 Mg Tab) 20 mg PO DAILY [facility] Last Admin: 08/26/22 08:47 Dose: 20 mg Folic Acid (Folic Acid 1 Mg Tab) 1 mg PO DAILY [facility] Last Admin: 08/26/22 08:48 Dose: Not Given Furosemide (Furosemide 40 Mg Tab) 40 mg PO DAILY [facility] Last Admin: 08/26/22 08:47 Dose: 40 mg Heparin Sodium (Porcine) (Heparin Sodium,Porcine/Pf 5,000 Unit/0.5 Ml Syringe) 5,000 unit SQ Q8HR [facility] Last Admin: 08/26/22 08:47 Dose: Not Given Hydralazine HCl (Hydralazine Hcl 50 Mg Tab) 50 mg PO BID [facility] Last Admin: 08/26/22 08:47 Dose: 50 mg Hydralazine HCl (Hydralazine Hcl 20 Mg/Ml 1 Ml Vial) 10 mg IVP Q4HR PRN PRN Reason: Blood Pressure - High Last Admin: 08/25/22 14:32 Dose: 10 mg Vancomycin HCl 1,000 mg/ (Sodium Chloride) 250 mls @ 125 mls/hr IVPB Q16H [facility] Last Admin: 08/26/22 13:57 Dose: 125 mls/hr Sodium Chloride (Saline 0.9%) 1,000 mls @ 50 mls/hr IV .Q20H [facility] Last Admin: 08/26/22 13:47 Dose: Not Given Ceftriaxone Sodium 2 gm/ (Sodium Chloride) 50 mls @ 100 mls/hr IVPB Q24H [facility]; Protocol Last Admin: 08/26/22 01:10 Dose: 100 mls/hr Magnesium Hydroxide (Magnesium Hydroxide 2,400 Mg/10 Ml Cup) 2,400 mg PO DAILY PRN PRN Reason: Constipation Magnesium Oxide (Magnesium Oxide 400 Mg Tab) 400 mg PO DAILY [facility] Last Admin: 08/26/22 08:48 Dose: Not Given Mirtazapine (Mirtazapine 15 Mg Tab) 7.5 mg PO HS [facility] Last Admin: 08/25/22 20:18 Dose: 7.5 mg Miscellaneous Information (Potassium Replacement Protocol 1 Each Misc) 1 each MISCELLANE DAILY PRN; Protocol PRN Reason: Per Protocol Miscellaneous Information (Potassium Replacement Protocol 1 Each Misc) 1 each MISCELLANE DAILY PRN; Protocol PRN Reason: Per Protocol Miscellaneous Information (Magnesium Replacement Protocol 1 Each Misc) 1 each MISCELLANE DAILY PRN; Protocol PRN Reason: Per Protocol Multivitamins (Multivitamins, Thera 1 Each Tab) 1 each PO DAILY [facility] Last Admin: 08/26/22 08:48 Dose: Not Given Naloxone HCl (Naloxone 0.4 Mg/Ml 1 Ml Vial) 0.2 mg IV Q2M PRN PRN Reason: Opioid Reversal Potassium Chloride (Potassium Chloride Er 20 Meq Tab.Er) 40 meq PO DAILY [facility] Last Admin: 08/26/22 08:47 Dose: 40 meq Pregabalin (Pregabalin 100 Mg Cap) 100 mg PO BID@1400,2100 [facility] Last Admin: 08/26/22 13:48 Dose: Not Given Sertraline HCl (Sertraline 50 Mg Tab) 50 mg PO DAILY [facility] Last Admin: 08/26/22 08:47 Dose: 50 mg Physical exam: Gen: This is a 77 rolled female who is asleep although arousable, alert and oriented 2, well-developed, well-nourished, elderly-appearing female HEENT: Head is atraumatic, normocephalic. Pupils equal, round. Sclerae is anicteric. NECK: Supple. No JVD. No lymphadenopathy. No thyromegaly. LUNGS: Diminished breath sounds bilaterally with no wheezes or rhonchi. No intercostal retractions. HEART: Regular rate and rhythm. No murmur. ABDOMEN: Soft. Obese. Bowel sounds are present. No masses. No tenderness. EXTREMITIES: No pedal edema. No calf tenderness. NEUROLOGICAL: Patient is awake, alert and oriented x2. Cranial nerves 2 through 12 are grossly intact. Diffusely weak Assessment: Stage IV Sacral decubitus ulcer with previous debridement, cultures growing E. coli, Proteus, MRSA Bilateral foot ulcer Chronic urinary retention with chronic indwelling Navarrete catheter Mild protein calorie malnutrition Hypertension Hyperlipidemia DVT prophylaxis GI prophylaxis Full code Plan: Recommend continue current medications and management with IV antibiotics and wound care with infectious disease following. General surgery following an scheduled for I&D with cleanup biopsies of the sacral decubitus ulcer with possible bone biopsy. Will await surgical report Recommend to continue with local wound care per infectious disease r ecommendations Recommend frequent position changes every 2 hours Awaiting finalized cultures, PICC line ordered Recommend follow-up labs and electrolytes improved post protocol replacement. Will follow up on repeat labs Will consult speech for swallow eval as family is concerned of decreased appet ite and poor oral intake Encouraged oral intake and increased activity as tolerated PT/OT therapy to evaluate the patient and patient likely returning to [facility] Wound care placed per surgery Due to multiple complex medical issues, prognosis is guarded. We'll be awaiting finalized cultures to determine appropriate discharge antibiotics The impression and plan of care has been dictated by Anitha Gillespie, Nurse Practitioner as directed. Dr. Ray MD I have performed a history and examination and MDM of this patient, discussed the same with the dictator, and agree with the dictator's assessment and plan as written ,documented as a scribe. Based on total visit time, I have performed more than 50% of the visit. Objective - Vital Signs Vital signs: Vital Signs Temp 98.7 F 08/26/22 07:08 Pulse 76 08/26/22 07:08 Resp 22 08/26/22 07:08 BP 183/50 08/26/22 07:08 Pulse Ox 96 08/26/22 07:08 FiO2 Intake & Output 08/25/22 08/26/22 08/26/22 18:59 06:59 18:59 Intake Total 400 Output Total 600 Balance 400 -600 Intake: Intake, IV Titration 400 Amount Magnesium Sulfate-D5w Pmx 200 1 gm In Dextrose/Water 1 100ml.bag @ 100 mls/hr IVPB Q1H [facility] Rx#: [id number] Potassium Chloride 10 meq 200 In Water For Injection 1 100ml.bag @ 100 mls/hr IVPB Q1HR [facility] Rx#: [id number] Output: Urine 600 Emesis 0 Other: Voiding Method Indwelling Catheter - Labs CBC & Chem 7: 08/26/22 06:08 08/26/22 06:08 Labs: Abnormal Lab Results - Last 24 Hours (Table) 08/25/22 08/25/22 08/26/22 Range/Units 14:12 14:12 06:08 RBC (3.80-5.40) m/uL Hgb (11.4-16.0) gm/dL Hct (34.0-46.0) % RDW (11.5-15.5) % Plt Count (150-450) k/uL Chloride 114 H (98-107) mmol/L Carbon Dioxide 20 L (22-30) mmol/L C-Reactive Protein 8.5 H (<1.0) mg/dL Procalcitonin 0.27 H (0.02-0.09) ng/mL 08/26/22 Range/Units 06:08 RBC 3.35 L (3.80-5.40) m/uL Hgb 9.4 L (11.4-16.0) gm/dL Hct 29.4 L (34.0-46.0) % RDW 15.7 H (11.5-15.5) % Plt Count 121 L (150-450) k/uL Chloride (98-107) mmol/L Carbon Dioxide (22-30) mmol/L C-Reactive Protein (<1.0) mg/dL Procalcitonin (0.02-0.09) ng/mL Microbiology - Last 24 Hours (Table) 08/21/22 13:04 Blood Culture - Preliminary Blood No Growth after 96 hours 08/21/22 13:04 Blood Culture - Preliminary Blood No Growth after 96 hours
[2022-08-27 07:51] LABS: African American GFR (CKD) 90 (>60 ml/min/1.73 sqM); Anion Gap 6 mmol/L; Blood Urea Nitrogen 14 mg/dL (7-17); Calcium 9.4 mg/dL (8.4-10.2); Carbon Dioxide 20 mmol/L (22-30); Chloride 112 mmol/L (98-107); Glucose 85 mg/dL (74-99); Magnesium 1.9 mg/dL (1.6-2.3); Non-African American GFR(CKD) 78 (>60 ml/min/1.73 sqM); Potassium 3.9 mmol/L (3.5-5.1); Sodium 138 mmol/L (137-145)
[2022-08-27] MEDS: HEPARIN SODIUM,PORCINE/PF 5,000 UNIT/0.5 ML SYRINGE SQ SCH ×3 (08:14→23:56)
[2022-08-27] MEDS: ASPIRIN 81 MG PO SCH (08:15)
[2022-08-27] MEDS: SERTRALINE 50 MG TAB PO SCH (08:15)
[2022-08-27] MEDS: FUROSEMIDE 40 MG TAB PO SCH (08:15)
[2022-08-27] MEDS: DOCUSATE 100 MG CAP PO SCH ×2 (08:15→21:23)
[2022-08-27] MEDS: POTASSIUM CHLORIDE ER 20 MEQ TAB.ER PO SCH (08:15)
[2022-08-27] MEDS: FAMOTIDINE 20 MG TAB PO SCH (08:15)
[2022-08-27] MEDS: amLODIPine 10 MG TAB PO SCH (08:15)
[2022-08-27] MEDS: FOLIC ACID 1 MG TAB PO SCH (08:15)
[2022-08-27] MEDS: MULTIVITAMINS, THERA 1 EACH TAB PO SCH (08:15)
[2022-08-27] MEDS: MAGNESIUM OXIDE 400 MG TAB PO SCH (08:15)
[2022-08-27] MEDS: hydrALAZINE HCL 50 MG TAB PO SCH ×2 (08:15→21:23)
[2022-08-27 10:12] LABS: Basophils # (A) 0.05 X 10*3/uL (0.00-0.10); Basophils % (A) 0.6 %; Eosinophils # (A) 0.23 X 10*3/uL (0.04-0.35); Eosinophils % (A) 2.8 %; HCT 29.5 % (37.2-46.3); HGB 8.9 g/dL (12.0-15.0); Immature Grans, Automated 0.4 %; Lymphocytes # (A) 1.84 X 10*3/uL (0.90-5.00); Lymphocytes % (A) 22.7 %; MCH 26.8 pg (27.0-32.0); MCHC 30.2 g/dL (32.0-37.0); MCV 88.9 fL (80.0-97.0); Mean Platelet Volume 12.8 fL (9.5-12.2); Monocytes # (A) 0.88 X 10*3/uL (0.20-1.00); Monocytes % (A) 10.9 %; NRBC Per 100 WBC 0 /100 WBCS (0.0-0.0); Neutrophils # (A) 5.06 X 10*3/uL (1.80-7.70); Neutrophils % (A) 62.6 %; Platelet Count 139 X 10*3/uL (140-440); RBC 3.32 X 10*6/uL (4.10-5.20); RDW 16.3 % (11.5-14.5); WBC 8.09 X 10*3/uL (4.50-10.00)
[2022-08-27] MEDS: PREGABALIN 100 MG CAP PO SCH ×2 (13:05→21:25)
[2022-08-27] MEDS: Acetaminophen-Codeine 300-30mg TAB PO PRN ×2 (13:05→21:23)
--- NOTE | 2022-08-27 14:24 | CDI ---
Documentation Clarification Form Date: 08/27/2022 02:16:04 PM From: Laquita Ledesma CCS, CCDS Admit Date: 08/23/2022 09:41:00 AM Patient Name: Alyssa Roca Visit Number: [id number] Discharge Date: ATTENTION: The Clinical Documentation Specialists (CDI) and [facility] Coding Staff appreciate your assistance in clarifying documentation. Please respond to the clarification below the line at the bottom and electronically sign. The CDI & [facility] Coding staff will review the response and follow-up if needed. Please note: Queries are made part of the Legal Health Record. If you have any questions, please contact the author of this message via ITS. Dr. Tammy Bryant: Unspecified Anemia is documented in the 08/25 Surgery Progress Note. Additional specificity regarding the Type & Acuity of Anemia is requested. History/Risk Factors per the 08/21 H/P: Hypertension, Hyperlipidemia, Recent admission for acute UTI & Urinary Retention. Clinical indicators: From [facility] via EMS with Weakness, worsening wound on the buttocks. Admit with Sacral Decubitus Ulcer and Failure to Thrive. Hemoglobin 08/21: 12.2. 08/23: 9.4. 08/27: 8.9 Hematocrit 08/21: 35.9. 08/23: 29.8. 08/27: 29.5 Treatment 08/21: Blood cultures, O2, IVF Na Chl 500 mls @ 999 mls/hr q31M, IVF Na Chl 1,000 mls @ 50 mls/hr q20H, INH Duoneb 3 ml GID/PRN. 08/22 Procedure: Excisional debridement of sacral decubitus ulcer. 08/26: Sharp excisional debridement with blade & scissor 6x5x2 cm Sacrococcygeal wound to muscle & sacral bone. Water pulse lavage debridement of sacrococcygeal wound 6x5x2 to muscle & bone. Bone biopsy of coccyx, deep biopsy. Wound VAC placement. Please clarify the Type & Acuity of Anemia: [ ] Acute blood loss anemia [ ] Acute on chronic blood loss anemia [ ] Chronic blood loss anemia [ ] Hemolytic anemia [ ] Drug induced anemia [ ] Nutritional anemia [ ] Anemia of chronic disease [ ] Unable to determine [ ] Other, please specify (Template Last Revised: September 2020) [x ] Anemia of chronic disease 08/29/22 @ 25[address] [facility]
--- NOTE | 2022-08-27 14:28 | P.PN ---
Subjective Progress Note Date: 08/27/22 CHIEF COMPLAINT: Sacral decubitus ulcer HISTORY OF PRESENT ILLNESS: Patient is status post 2 debridements of the sacral decubitus ulcer. Her last debridement was on August [address] Bryant and had biopsy of the sacral bone and has wound VAC in place. Patient continues to have poor oral intake. Patient evaluated by speech therapy with no signs of aspiration. She recommended regular diet with thin liquids. Patient is also undergoing a calorie count. Afebrile. WBC 8.09 Hgb 8.9 platelets 139 sodium is 138 potassium 3.9 creatinine 0.75 PHYSICAL EXAM: VITAL SIGNS: Reviewed. GENERAL: Well-developed in no acute distress. HEENT: No sclera icterus. Extraocular movements grossly intact. Moist buccal mucosa. Head is atraumatic, normocephalic. ABDOMEN: Soft. Nondistended. Nontender. NEUROLOGIC: Sleeping comfortably ASSESSMENT: 1. Sacral decubitus ulcer status post debridement 2 2. Poor oral intake PLAN: -Follow-up on pathology for bone biopsy -Follow up on culture results -Continue wound VAC -Antibiotics per infectious disease -Continue calorie count. Depending on calorie count results further recommendations will be forthcoming regarding PEG tube placement Physician Sheet Mill Supervisor note has been reviewed by physician. Signing provider agrees with the documented findings, assessment, and plan of care. I have personally seen and examined the patient, reviewed the DEPUTY CHIEF SHERIFF /PAs history, exam and MDM and agree with the assessment and plan as written. Based on total visit time, I have performed more than 50% of the visit. As above: Speech pathology results noted. No evidence of aspiration. Monitor calorie count. Patient states she is not interested and feeding tube placement at this time. I stressed to the patient she discuss this further with her daughter. Objective - Vital Signs Vital signs: Vital Signs Temp 98.0 F 08/27/22 12:01 Pulse 56 L 08/27/22 12:01 Resp 16 08/27/22 12:01 BP 121/62 08/27/22 12:01 Pulse Ox 96 08/27/22 12:01 FiO2 Intake & Output 08/26/22 08/27/22 08/27/22 18:59 06:59 18:59 Intake Total 550 Output Total 105 400 Balance 445 -400 Weight 58.967 kg Intake: IV 550 Output: Urine 100 400 Estimated Blood Loss 5 Other: Voiding Method Indwelling Catheter Indwelling Catheter Indwelling Catheter - Labs CBC & Chem 7: 08/27/22 07:17 08/27/22 07:17 Labs: Abnormal Lab Results - Last 24 Hours (Table) 08/27/22 08/27/22 Range/Units 07:17 07:17 RBC 3.32 L (4.10-5.20) X 10*6/uL Hgb 8.9 L (12.0-15.0) g/dL Hct 29.5 L (37.2-46.3) % MCH 26.8 L (27.0-32.0) pg MCHC 30.2 L (32.0-37.0) g/dL RDW 16.3 H (11.5-14.5) % Plt Count 139 L (140-440) X 10*3/uL MPV 12.8 H (9.5-12.2) fL Chloride 112 H (98-107) mmol/L Carbon Dioxide 20 L (22-30) mmol/L Microbiology - Last 24 Hours (Table) 08/26/22 17:07 Tissue Culture - Preliminary Back 08/26/22 17:07 Anaerobic Culture - Preliminary Back 08/26/22 17:07 Anaerobic Culture - Preliminary Back 08/26/22 17:07 Wound Culture - Preliminary Back 08/25/22 14:12 Blood Culture - Preliminary Blood No Growth after 24 hours 08/21/22 13:04 Blood Culture - Preliminary Blood No Growth after 120 hours 08/21/22 13:04 Blood Culture - Preliminary Blood No Growth after 120 hours
--- NOTE | 2022-08-27 16:29 | XR ---
EXAMINATION TYPE: XR ankle complete LT DATE OF EXAM: 08/27/2022 4:14 PM INDICATION: Patient age:Female; 77 years old; Reason for study: Left bimalleolar ankle fx f/u; COMPARISON: Multiple priors including CT on 05/23/2022 and ankle radiographs on 01/30/2020 05/22/2022. TECHNIQUE: The left ankle is imaged in frontal, lateral projections. FINDINGS: There is patchy disuse osteopenia in throughout the foot which limits evaluation. Redemonstration of distal tibia fractures with the foot subluxed anteriorly. There is some osseous he aling changes present however these are suboptimally evaluated given osteopenia. There may be displac ed fragments present posteriorly which due to technique evaluation slightly limited.. No new acute fr actures are visualized. There is soft tissue swelling present. IMPRESSION: Osseous remodeling changes with patchy disuse osteopenia. There is subluxed anterior ankle mortise. N o new acute fractures visualized. Further evaluation with CT ankle should be considered given limitat ion of radiography.
[2022-08-27] MEDS: MIRTAZAPINE 15 MG TAB PO SCH (21:23)
--- NOTE | 2022-08-28 03:47 | P.PN ---
Subjective Progress Note Date: 08/27/22 Patient is a 77-year-old female with recent admission for acute urinary tract infection, and urinary retention and past medical history of hypertension and dyslipidemia presenting from residential facility for failure to thrive and worsening sacral decubitus ulcer. Patient currently denies any chest pain, shortness of breath, abdominal pain, nausea, vomiting, diarrhea, constipation, or urinary complaints. Patient is not ambulatory at baseline. Per patient's daughter, patient has not been eating or drinking well at the nursing facility. In the ED, patient's vital signs were within normal limits. Laboratory workup was mostly unremarkable except for mild hypercalcemia. UA showed large leukocyt e esterase, negative nitrites. Chest x-ray showed no acute process. Patient being admitted for further workup for sacral decubitus ulcer and failure to thrive. 08/24/2022 Patient is seen and evaluated in follow-up today with infectious disease following. Patient is maintained on IV antibiotics evaluated cultures. Recommend continue with local wound care with general surgery in consultation for possible debridement of the decubitus ulcer. Patient is currently afebrile denies chest pain or shortness of breath. Patient is tolerating diet and recommend aspiration precautions and encouraged oral intake. Recommend frequent position changes every 2 hours will continue to monitor closely. 08/25/2022 Patient is seen and evaluated in follow-up today currently nothing by mouth as patient was tentatively scheduled to undergo debridement of the sacral ulcer with general surgery today although potassium low at 24 surgical debridement in 24 hours.. WBC remains normal 8.9 hemoglobin is stable at 9.8, sodium is 140, potassium is 2.8 and will replace, magnesium is 1.7. Patient continues on IV antibiotics with infectious disease following. Patient will need PICC line and outpatient antibiotics. Patient plans to return to rehab once stabilized discharge. Patient is currently afebrile denies chest pain or worsening shortness of breath. Patient reports she is tired. 08/26/2022 Patient is seen in follow-up this morning currently sleeping although arousable. Patient is nothing by mouth as patient is scheduled to undergo debridement along with T2 tissue biopsies and bone biopsy of her stage IV sacral ulcer with general surgery. Labs reviewed and electrolytes including potassium and magnesium replaced and within normal limits today. Patient is afebrile denies chest pain or shortness of breath. Infectious disease following an patient is maintained on IV antibiotics as well. 08/27/2022 Patient seen and evaluated follow-up status post debridement with deep tissue biopsy with general surgery. Patient is maintained on IV antibiotics with infectious disease following as well. Wound VAC has been applied and tolerating those far. Patient currently concerned with poor oral speech therapy to evaluate the patient. Encouraged oral intake and decreased activity as pedrito ated. Electrolytes replacement protocol and showing improvement will follow-up with repeat labs. Awaiting deep tissue cultures to determine discharge antibiotics. Plan is for return to [facility] for continued PT/OT therapy along with IV antibiotic management. Patient received a PICC line. Patient is currently afebrile denies chest pain or shortness of breath. Review of systems: Constitutional: No reports of fatigue, fever, or chills Cardiovascular: No reports of chest pain or palpitations Respiratory: No reports of shortness of breath or cough GI: No reports of nausea, vomiting, or diarrhea reports poor appetite : No reports of dysuria or retention Neurovascular: reports of generalized weakness All medications have been reviewed Active Medications Acetaminophen/Codeine Phosphate (Acetaminophen-Codeine 300-30mg Tab) 1 each PO Q4HR PRN PRN Reason: Moderate Pain (Scale 4 to 6) Last Admin: 08/27/22 21:23 Dose: 1 each Albuterol/Ipratropium (Ipratropium-Albuterol 3 Ml Neb) 3 ml INHALATION RT-TID PRN PRN Reason: Shortness Of Breath Or Wheezing Albuterol/Ipratropium (Ipratropium-Albuterol 3 Ml Neb) 3 ml INHALATION RT-TID [facility] Amlodipine Besylate (Amlodipine 10 Mg Tab) 10 mg PO DAILY [facility] Last Admin: 08/27/22 08:15 Dose: 10 mg Aspirin (Aspirin 81 Mg) 81 mg PO DAILY [facility] Last Admin: 08/27/22 08:15 Dose: 81 mg Docusate Sodium (Docusate 100 Mg Cap) 100 mg PO BID [facility] Last Admin: 08/27/22 21:23 Dose: 100 mg Ergocalciferol (Ergocalciferol 1,250 Mcg (50,000 Iu) Capsule) 1,250 mcg PO [place] [facility] Last Admin: 08/25/22 09:46 Dose: 1,250 mcg Famotidine (Famotidine 20 Mg Tab) 20 mg PO DAILY [facility] Last Admin: 08/27/22 08:15 Dose: 20 mg Folic Acid (Folic Acid 1 Mg Tab) 1 mg PO DAILY [facility] Last Admin: 08/27/22 08:15 Dose: 1 mg Furosemide (Furosemide 40 Mg Tab) 40 mg PO DAILY [facility] Last Admin: 08/27/22 08:15 Dose: 40 mg Heparin Sodium (Porcine) (Heparin Sodium,Porcine/Pf 5,000 Unit/0.5 Ml Syringe) 5,000 unit SQ Q8HR [facility] Last Admin: 08/27/22 23:56 Dose: 5,000 unit Hydralazine HCl (Hydralazine Hcl 50 Mg Tab) 50 mg PO BID [facility] Last Admin: 08/27/22 21:23 Dose: 50 mg Hydralazine HCl (Hydralazine Hcl 20 Mg/Ml 1 Ml Vial) 10 mg IVP Q4HR PRN PRN Reason: Blood Pressure - High Last Admin: 08/25/22 14:32 Dose: 10 mg Vancomycin HCl 1,000 mg/ (Sodium Chloride) 250 mls @ 125 mls/hr IVPB Q16H [facility] Last Admin: 08/27/22 21:24 Dose: 125 mls/hr Sodium Chloride (Saline 0.9%) 1,000 mls @ 50 mls/hr IV .Q20H [facility] Last Admin: 08/26/22 23:33 Dose: 50 mls/hr Ceftriaxone Sodium 2 gm/ (Sodium Chloride) 50 mls @ 100 mls/hr IVPB Q24H [facility]; Protocol Last Admin: 08/27/22 23:56 Dose: 100 mls/hr Magnesium Hydroxide (Magnesium Hydroxide 2,400 Mg/10 Ml Cup) 2,400 mg PO DAILY PRN PRN Reason: Constipation Magnesium Oxide (Magnesium Oxide 400 Mg Tab) 400 mg PO DAILY [facility] Last Admin: 08/27/22 08:15 Dose: 400 mg Megestrol Acetate (Megestrol 400 Mg/10 Ml Cup) 400 mg PO DAILY [facility] Mirtazapine (Mirtazapine 15 Mg Tab) 7.5 mg PO HS [facility] Last Admin: 08/27/22 21:23 Dose: 7.5 mg Miscellaneous Information (Potassium Replacement Protocol 1 Each Misc) 1 each MISCELLANE DAILY PRN; Protocol PRN Reason: Per Protocol Miscellaneous Information (Magnesium Replacement Protocol 1 Each Misc) 1 each MISCELLANE DAILY PRN; Protocol PRN Reason: Per Protocol Miscellaneous Information (Vancomycin Trough Due 1 Each Misc) 0 each MISCELLANE DIRECTED ONE Stop: 08/29/22 05:01 Multivitamins (Multivitamins, Thera 1 Each Tab) 1 each PO DAILY [facility] Last Admin: 08/27/22 08:15 Dose: 1 each Naloxone HCl (Naloxone 0.4 Mg/Ml 1 Ml Vial) 0.2 mg IV Q2M PRN PRN Reason: Opioid Reversal Pantoprazole Sodium (Pantoprazole 40 Mg/10 Ml Vial) 40 mg IVP BID [facility] Potassium Chloride (Potassium Chloride Er 20 Meq Tab.Er) 40 meq PO DAILY [facility] Last Admin: 08/27/22 08:15 Dose: 40 meq Pregabalin (Pregabalin 100 Mg Cap) 100 mg PO BID@1400,2100 [facility] Last Admin: 08/27/22 21:25 Dose: 100 mg Sertraline HCl (Sertraline 50 Mg Tab) 50 mg PO DAILY [facility] Last Admin: 08/27/22 08:15 Dose: 50 mg Physical exam: Gen: This is a 77 year old female who is asleep although arousable, alert and oriented 2, well-developed, well-nourished, elderly-appearing female HEENT: Head is atraumatic, normocephalic. Pupils equal, round. Sclerae is anicteric. NECK: Supple. No JVD. No lymphadenopathy. No thyromegaly. LUNGS: Diminished breath sounds bilaterally with no wheezes, scattered rhonchi. No intercostal retractions. HEART: Regular rate and rhythm. No murmur. ABDOMEN: Soft. Obese. Bowel sounds are present. No masses. No tenderness. EXTREMITIES: No pedal edema. No calf tenderness. NEUROLOGICAL: Patient is awake, alert and oriented x2. Cranial nerves 2 through 12 are grossly intact. Diffusely weak Assessment: Stage IV Sacral decubitus ulcer status post I&D with debridement on 08/26/2021, initial cultures growing E. coli, Proteus, MRSA and awaiting repeat cultures Bilateral foot ulcer Chronic urinary retention with chronic indwelling Navarrete catheter Mild protein calorie malnutrition Hypertension Hyperlipidemia DVT prophylaxis GI prophylaxis Full code Plan: Recommend continue current medications and management with IV antibiotics and wound care with infectious disease following. General surgery following and is post debridement with biopsies of the sacral decubitus ulcer and bone biopsy. Recommend to continue with local wound care per infectious disease recommendations, wound VAC has been applied and awaiting repeat cultures from deep tissue Recommend frequent position changes every 2 hours Awaiting finalized cultures, PICC line ordered Recommend follow-up labs and electrolytes improved post protocol replacement. Will follow up on repeat labs Speech has evaluated the patient decreased appetite and poor oral intake, no overt issues noted and will continue current diet. Will add Megace oral intake Encouraged oral intake and increased activity as tolerated PT/OT therapy to evaluate the patient and patient returning to ECF stabilized and discharged Wound VAC placed per surgery and will discuss with case management about discharge planning needs and awaiting finalized cultures to determine antibiotics Due to multiple complex medical issues, prognosis is guarded. The impression and plan of care has been dictated by Anitha Gillespie, Nurse Practitioner as directed. Dr. Ray MD I have performed a history and examination and MDM of this patient, discussed the same with the dictator, and agree with the dictator's assessment and plan as written ,documented as a scribe. Based on total visit time, I have performed more than 50% of the visit. Objective - Vital Signs Vital signs: Vital Signs Temp 98.3 F 08/28/22 02:20 Pulse 87 08/28/22 02:20 Resp 18 08/28/22 02:20 BP 138/67 08/28/22 02:20 Pulse Ox 92 L 08/28/22 02:20 FiO2 Intake & Output 08/27/22 08/27/22 08/28/22 06:59 18:59 06:59 Output Total 400 500 Balance -400 -500 Weight 58.967 kg Output: Urine 400 500 Other: Voiding Method Indwelling Catheter Indwelling Catheter Indwelling Catheter - Labs CBC & Chem 7: 08/27/22 07:17 08/27/22 07:17 Labs: Abnormal Lab Results - Last 24 Hours (Table) 08/27/22 08/27/22 Range/Units 07:17 07:17 RBC 3.32 L (4.10-5.20) X 10*6/uL Hgb 8.9 L (12.0-15.0) g/dL Hct 29.5 L (37.2-46.3) % MCH 26.8 L (27.0-32.0) pg MCHC 30.2 L (32.0-37.0) g/dL RDW 16.3 H (11.5-14.5) % Plt Count 139 L (140-440) X 10*3/uL MPV 12.8 H (9.5-12.2) fL Chloride 112 H (98-107) mmol/L Carbon Dioxide 20 L (22-30) mmol/L Microbiology - Last 24 Hours (Table) 08/26/22 17:07 Gram Stain - Preliminary Back Wound Culture - Preliminary Gram Neg Bacilli 08/26/22 17:07 Gram Stain - Preliminary Back Tissue Culture - Preliminary Gram Neg Bacilli 08/25/22 14:12 Blood Culture - Preliminary Blood No Growth after 48 hours 08/21/22 13:04 Blood Culture - Final Blood No Growth after 144 hours 08/21/22 13:04 Blood Culture - Final Blood No Growth after 144 hours 08/26/22 17:07 Anaerobic Culture - Preliminary Back 08/26/22 17:07 Anaerobic Culture - Preliminary Back
[2022-08-28] MEDS: SODIUM CHLORIDE 0.9% 1,000 ML IV SCH ×2 (06:15→23:08)
[2022-08-28] MEDS: IPRATROPIUM-ALBUTEROL 3 ML NEB INHALATION SCH ×3 (07:33→19:40)
[2022-08-28] MEDS: HEPARIN SODIUM,PORCINE/PF 5,000 UNIT/0.5 ML SYRINGE SQ SCH ×3 (09:36→23:00)
[2022-08-28] MEDS: PANTOPRAZOLE 40 MG/10 ML VIAL IVP SCH ×2 (09:37→22:05)
[2022-08-28] MEDS: ASPIRIN 81 MG PO SCH (09:37)
[2022-08-28] MEDS: POTASSIUM CHLORIDE ER 20 MEQ TAB.ER PO SCH (09:37)
[2022-08-28] MEDS: DOCUSATE 100 MG CAP PO SCH ×3 (09:38→22:33)
[2022-08-28] MEDS: amLODIPine 10 MG TAB PO SCH (09:38)
[2022-08-28] MEDS: hydrALAZINE HCL 50 MG TAB PO SCH ×2 (09:38→22:12)
[2022-08-28] MEDS: FOLIC ACID 1 MG TAB PO SCH (09:38)
[2022-08-28] MEDS: MAGNESIUM OXIDE 400 MG TAB PO SCH (09:38)
[2022-08-28] MEDS: MULTIVITAMINS, THERA 1 EACH TAB PO SCH (09:38)
[2022-08-28] MEDS: SERTRALINE 50 MG TAB PO SCH (09:38)
[2022-08-28] MEDS: FUROSEMIDE 40 MG TAB PO SCH (09:38)
[2022-08-28] MEDS: FAMOTIDINE 20 MG TAB PO SCH (09:38)
[2022-08-28 10:27] LABS: Basophils # (A) 0.04 X 10*3/uL (0.00-0.10); Basophils % (A) 0.7 %; Eosinophils # (A) 0.32 X 10*3/uL (0.04-0.35); Eosinophils % (A) 5.2 %; HCT 24.7 % (37.2-46.3); HGB 7.7 g/dL (12.0-15.0); Immature Grans, Automated 0.7 %; Lymphocytes # (A) 1.36 X 10*3/uL (0.90-5.00); Lymphocytes % (A) 22.3 %; MCH 26.8 pg (27.0-32.0); MCHC 31.2 g/dL (32.0-37.0); MCV 86.1 fL (80.0-97.0); Mean Platelet Volume 12.4 fL (9.5-12.2); Monocytes # (A) 0.54 X 10*3/uL (0.20-1.00); Monocytes % (A) 8.8 %; NRBC Per 100 WBC 0 /100 WBCS (0.0-0.0); Neutrophils # (A) 3.81 X 10*3/uL (1.80-7.70); Neutrophils % (A) 62.3 %; Platelet Count 147 X 10*3/uL (140-440); RBC 2.87 X 10*6/uL (4.10-5.20); RDW 15.9 % (11.5-14.5); WBC 6.11 X 10*3/uL (4.50-10.00)
[2022-08-28 11:40] LABS: Anion Gap 11.4 mmol/L (10.00-18.00); BUN/Creat Ratio 17.75 Ratio (12.00-20.00); Blood Urea Nitrogen 14.2 mg/dL (9.0-27.0); Calcium 9.5 mg/dL (8.7-10.3); Carbon Dioxide 19.6 mmol/L (20.0-27.5); Non-African American GFR(CKD) 71.6 (60.0-200.0); Potassium 4.1 mmol/L (3.5-5.5)
[2022-08-28] MEDS: Acetaminophen-Codeine 300-30mg TAB PO PRN ×2 (13:08→18:50)
--- NOTE | 2022-08-28 14:23 | P.PN ---
Progress Note - Text Progress Note Date: 08/28/22 Spoke to the patient's daughter, Amaris. Family meeting to discuss patient's goals of care tomorrow at 9:00am. [facility] Palliative Care/Urology [facility] [id number] Email: [email or web address]
--- NOTE | 2022-08-28 14:31 | P.PN ---
Subjective Progress Note Date: 08/28/22 CHIEF COMPLAINT: Sacral decubitus ulcer HISTORY OF PRESENT ILLNESS: Patient is status post 2 debridements of the sacral decubitus ulcer. Her last debridement was on August [address] Bryatn and had biopsy of the sacral bone and has wound VAC in place. Patient continues to have poor oral intake. Patient evaluated by speech therapy with no signs of aspiration. She recommended regular diet with thin liquids. Patient supposed to undergo a calorie count and it appears that this was not initiated. Afebrile. Tachycardic. WBC 6.118 HGB 7.7 platelets 147 tissue culture growing gram-negative bacilli PHYSICAL EXAM: VITAL SIGNS: Reviewed. GENERAL: Well-developed in no acute distress. HEENT: No sclera icterus. Extraocular movements grossly intact. Moist buccal mucosa. Head is atraumatic, normocephalic. ABDOMEN: Soft. Nondistended. Nontender. NEUROLOGIC: Sleeping comfortably ASSESSMENT: 1. Sacral decubitus ulcer status post debridement 2 2. Poor oral intake PLAN: -Consult dietitian to initiate a 72 hour calorie count -Discussed the option of PEG tube placement. Patient is not interested in a feeding tube. -Medicine has place consult for palliative care service. Positive care service has a family meeting scheduled for tomorrow morning -Follow-up on pathology for bone biopsy -Follow up on culture results -Continue wound VAC -Antibiotics per infectious disease Physician Dictionary Editor note has been reviewed by physician. Signing provider agrees with the documented findings, assessment, and plan of care. Objective - Vital Signs Vital signs: Vital Signs Temp 98.3 F 08/28/22 12:13 Pulse 120 H 08/28/22 12:13 Resp 16 08/28/22 12:13 BP 146/69 08/28/22 12:13 Pulse Ox 94 L 08/28/22 12:13 FiO2 Intake & Output 08/27/22 08/28/22 08/28/22 18:59 06:59 18:59 Output Total 500 550 900 Balance -500 -550 -900 Weight 58.967 kg Output: Urine 500 550 900 Other: Voiding Method Indwelling Catheter Indwelling Catheter Indwelling Catheter - Labs CBC & Chem 7: 08/28/22 07:04 08/28/22 06:58 Labs: Abnormal Lab Results - Last 24 Hours (Table) 08/28/22 08/28/22 Range/Units 06:58 07:04 RBC 2.87 L (4.10-5.20) X 10*6/uL Hgb 7.7 L (12.0-15.0) g/dL Hct 24.7 L (37.2-46.3) % MCH 26.8 L (27.0-32.0) pg MCHC 31.2 L (32.0-37.0) g/dL RDW 15.9 H (11.5-14.5) % MPV 12.4 H (9.5-12.2) fL Chloride 111 H (96-109) mmol/L Carbon Dioxide 19.6 L (20.0-27.5) mmol/L Microbiology - Last 24 Hours (Table) 08/26/22 17:07 Gram Stain - Preliminary Back Wound Culture - Preliminary Gram Neg Bacilli 08/26/22 17:07 Gram Stain - Preliminary Back Tissue Culture - Preliminary Gram Neg Bacilli 08/25/22 14:12 Blood Culture - Preliminary Blood No Growth after 48 hours 08/21/22 13:04 Blood Culture - Final Blood No Growth after 144 hours 08/21/22 13:04 Blood Culture - Final Blood No Growth after 144 hours
[2022-08-28] MEDS: MEGESTROL 400 MG/10 ML CUP PO SCH (15:18)
[2022-08-28] MEDS: VANCOMYCIN 1,000 MG in SODIUM CHLORIDE 0.9% 250 ML IVPB SCH (15:19)
[2022-08-28] MEDS: PREGABALIN 100 MG CAP PO SCH ×2 (15:35→22:12)
[2022-08-28] MEDS ORDERED: HYDROmorphone 0.5 MG/0.5 ML SYRINGE IM PRN (19:04)
[2022-08-28] MEDS: MIRTAZAPINE 15 MG TAB PO SCH (22:22)
[2022-08-28] MEDS: HYDROmorphone 0.5 MG/0.5 ML SYRINGE IVP PRN (22:28)
--- NOTE | 2022-08-29 04:32 | P.PN ---
Subjective Progress Note Date: 08/28/22 Patient is a 77-year-old female with recent admission for acute urinary tract infection, and urinary retention and past medical history of hypertension and dyslipidemia [facility] for failure to thrive and worsening sacral decubitus ulcer. Patient currently denies any chest pain, shortness of breath, abdominal pain, nausea, vomiting, diarrhea, constipation, or urinary complaints. Patient is not ambulatory at baseline. Per patient's daughter, patient has not been eating or drinking well at the nursing facility. In the ED, patient's vital signs were within normal limits. Laboratory workup was mostly unremarkable except for mild hypercalcemia. UA showed large leukocyt e esterase, negative nitrites. Chest x-ray showed no acute process. Patient being admitted for further workup for sacral decubitus ulcer and failure to thrive. 08/24/2022 Patient is seen and evaluated in follow-up today with infectious disease following. Patient is maintained on IV antibiotics evaluated cultures. Recommend continue with local wound care with general surgery in consultation for possible debridement of the decubitus ulcer. Patient is currently afebrile denies chest pain or shortness of breath. Patient is tolerating diet and recommend aspiration precautions and encouraged oral intake. Recommend frequent position changes every 2 hours will continue to monitor closely. 08/25/2022 Patient is seen and evaluated in follow-up today currently nothing by mouth as patient was tentatively scheduled to undergo debridement of the sacral ulcer with general surgery today although potassium low at 24 surgical debridement in 24 hours.. WBC remains normal 8.9 hemoglobin is stable at 9.8, sodium is 140, potassium is 2.8 and will replace, magnesium is 1.7. Patient continues on IV antibiotics with infectious disease following. Patient will need PICC line and outpatient antibiotics. Patient plans to return to rehab once stabilized discharge. Patient is currently afebrile denies chest pain or worsening shortness of breath. Patient reports she is tired. 08/26/2022 Patient is seen in follow-up this morning currently sleeping although arousable. Patient is nothing by mouth as patient is scheduled to undergo debridement along with T2 tissue biopsies and bone biopsy of her stage IV sacral ulcer with general surgery. Labs reviewed and electrolytes including potassium and magnesium replaced and within normal limits today. Patient is afebrile denies chest pain or shortness of breath. Infectious disease following an patient is maintained on IV antibiotics as well. 08/27/2022 Patient seen and evaluated follow-up status post debridement with deep tissue biopsy with general surgery. Patient is maintained on IV antibiotics with infectious disease following as well. Wound VAC has been applied and tolerating those far. Patient currently concerned with poor oral speech therapy to evaluate the patient. Encouraged oral intake and decreased activity as pedrito ated. Electrolytes replacement protocol and showing improvement will follow-up with repeat labs. Awaiting deep tissue cultures to determine discharge antibiotics. Plan is for return to [facility] for continued PT/OT therapy along with IV antibiotic management. Patient received a PICC line. Patient is currently afebrile denies chest pain or shortness of breath. 08/28/2022 Patient is seen and evaluated today with multiple medical consultations following. Patient is maintained on IV antibiotics with infectious disease following and has received a PICC line waiting on finalized cultures to det ermine discharge antibiotics. Surgery as well post I&D deep cultures were obtained and pending along with bone specimen. Patient's oral intake is marginal and reports not much of an appetite. Patient started on Megace and encouraged oral intake. Patient is alert and oriented and expressing the desire to discuss hospice. Discussed with daughter over the phone and palliative care consult placed to discuss overall treatment plan and palliative versus hospice. Surgery following recommending PEG tube if no improvement in oral intake and patient is adamantly refusing. We'll continue to monitor closely follow-up with palliative is there is a plan for a 9:30 AM meeting in the morning. Case m anagement notified as well with possible hospice being considered. Patient is currently afebrile denies chest pain or shortness of breath. Review of systems: Constitutional: No reports of fatigue, fever, or chills Cardiovascular: No reports of chest pain or palpitations Respiratory: No reports of shortness of breath or cough GI: No reports of nausea, vomiting, or diarrhea reports poor appetite : No reports of dysuria or retention Neurovascular: reports of generalized weakness , reports buttock pain All medications have been reviewed Active Medications Acetaminophen/Codeine Phosphate (Acetaminophen-Codeine 300-30mg Tab) 1 each PO Q4HR PRN PRN Reason: Moderate Pain (Scale 4 to 6) Last Admin: 08/28/22 18:50 Dose: 1 each Albuterol/Ipratropium (Ipratropium-Albuterol 3 Ml Neb) 3 ml INHALATION RT-TID PRN PRN Reason: Shortness Of Breath Or Wheezing Albuterol/Ipratropium (Ipratropium-Albuterol 3 Ml Neb) 3 ml INHALATION RT-TID [facility] Last Admin: 08/28/22 19:40 Dose: Not Given Amlodipine Besylate (Amlodipine 10 Mg Tab) 10 mg PO DAILY [facility] Last Admin: 08/28/22 09:38 Dose: 10 mg Aspirin (Aspirin 81 Mg) 81 mg PO DAILY [facility] Last Admin: 08/28/22 09:37 Dose: 81 mg Docusate Sodium (Docusate 100 Mg Cap) 100 mg PO BID [facility] Last Admin: 08/28/22 22:33 Dose: Not Given Ergocalciferol (Ergocalciferol 1,250 Mcg (50,000 Iu) Capsule) 1,250 mcg PO SAMANIEGO [facility] Last Admin: 08/25/22 09:46 Dose: 1,250 mcg Famotidine (Famotidine 20 Mg Tab) 20 mg PO DAILY [facility] Last Admin: 08/28/22 09:38 Dose: 20 mg Folic Acid (Folic Acid 1 Mg Tab) 1 mg PO DAILY [facility] Last Admin: 08/28/22 09:38 Dose: 1 mg Furosemide (Furosemide 40 Mg Tab) 40 mg PO DAILY [facility] Last Admin: 08/28/22 09:38 Dose: 40 mg Heparin Sodium (Porcine) (Heparin Sodium,Porcine/Pf 5,000 Unit/0.5 Ml Syringe) 5,000 unit SQ Q8HR [facility] Last Admin: 08/28/22 23:00 Dose: 5,000 unit Hydralazine HCl (Hydralazine Hcl 50 Mg Tab) 50 mg PO BID [facility] Last Admin: 08/28/22 22:12 Dose: 50 mg Hydralazine HCl (Hydralazine Hcl 20 Mg/Ml 1 Ml Vial) 10 mg IVP Q4HR PRN PRN Reason: Blood Pressure - High Last Admin: 08/25/22 14:32 Dose: 10 mg Hydromorphone HCl (Hydromorphone 0.5 Mg/0.5 Ml Syringe) 0.5 mg IVP Q3HR PRN PRN Reason: Pain Last Admin: 08/28/22 22:28 Dose: 0.5 mg Vancomycin HCl 1,000 mg/ (Sodium Chloride) 250 mls @ 125 mls/hr IVPB Q16H [facility] Last Admin: 08/28/22 15:19 Dose: 125 mls/hr Sodium Chloride (Saline 0.9%) 1,000 mls @ 50 mls/hr IV .Q20H [facility] Last Admin: 08/28/22 23:08 Dose: 50 mls/hr Ceftriaxone Sodium 2 gm/ (Sodium Chloride) 50 mls @ 100 mls/hr IVPB Q24H [facility]; Protocol Last Admin: 08/28/22 22:59 Dose: 100 mls/hr Magnesium Hydroxide (Magnesium Hydroxide 2,400 Mg/10 Ml Cup) 2,400 mg PO DAILY PRN PRN Reason: Constipation Magnesium Oxide (Magnesium Oxide 400 Mg Tab) 400 mg PO DAILY [facility] Last Admin: 08/28/22 09:38 Dose: 400 mg Megestrol Acetate (Megestrol 400 Mg/10 Ml Cup) 400 mg PO DAILY [facility] Last Admin: 08/28/22 15:18 Dose: 400 mg Mirtazapine (Mirtazapine 15 Mg Tab) 7.5 mg PO HS [facility] Last Admin: 08/28/22 22:22 Dose: 7.5 mg Miscellaneous Information (Potassium Replacement Protocol 1 Each Misc) 1 each MISCELLANE DAILY PRN; Protocol PRN Reason: Per Protocol Miscellaneous Information (Magnesium Replacement Protocol 1 Each Misc) 1 each MISCELLANE DAILY PRN; Protocol PRN Reason: Per Protocol Miscellaneous Information (Vancomycin Trough Due 1 Each Misc) 0 each MISCELLANE DIRECTED ONE Stop: 08/29/22 05:01 Multivitamins (Multivitamins, Thera 1 Each Tab) 1 each PO DAILY [facility] Last Admin: 08/28/22 09:38 Dose: 1 each Naloxone HCl (Naloxone 0.4 Mg/Ml 1 Ml Vial) 0.2 mg IV Q2M PRN PRN Reason: Opioid Reversal Pantoprazole Sodium (Pantoprazole 40 Mg/10 Ml Vial) 40 mg IVP BID [facility] Last Admin: 08/28/22 22:05 Dose: 40 mg Potassium Chloride (Potassium Chloride Er 20 Meq Tab.Er) 40 meq PO DAILY [facility] Last Admin: 08/28/22 09:37 Dose: 40 meq Pregabalin (Pregabalin 100 Mg Cap) 100 mg PO BID@1400,2100 [facility] Last Admin: 08/28/22 22:12 Dose: 100 mg Sertraline HCl (Sertraline 50 Mg Tab) 50 mg PO DAILY [facility] Last Admin: 08/28/22 09:38 Dose: 50 mg Physical exam: Gen: This is a 77 year old female who is awake, alert and oriented 3, well- developed, well-nourished, elderly-appearing female HEENT: Head is atraumatic, normocephalic. Pupils equal, round. Sclerae is anicteric. NECK: Supple. No JVD. No lymphadenopathy. No thyromegaly. LUNGS: Diminished breath sounds bilaterally with no wheezes, scattered rhonchi. No intercostal retractions. HEART: Regular rate and rhythm. No murmur. ABDOMEN: Soft. Obese. Bowel sounds are present. No masses. No tenderness. EXTREMITIES: No pedal edema. No calf tenderness. NEUROLOGICAL: Patient is awake, alert and oriented x2. Cranial nerves 2 through 12 are grossly intact. Diffusely weak Assessment: Stage IV Sacral decubitus ulcer status post I&D with debridement on 08/26/2021, initial cultures growing E. coli, Proteus, MRSA and awaiting repeat cultures Bilateral foot ulcer Chronic urinary retention with chronic indwelling Navarrete catheter Mild protein calorie malnutrition Hypertension Hyperlipidemia DVT prophylaxis GI prophylaxis Full code Plan: Recommend continue current medications and management with IV antibiotics and wound care with infectious disease following. General surgery following and is post debridement with biopsies of the sacral decubitus ulcer and bone biopsy. Patient not eating very well and surgery suggested possible PEG tube and patient refused and this was discussed with family as well Recommend to continue with local wound care per infectious disease recommendations, wound VAC has been applied and awaiting repeat cultures from deep tissue Recommend frequent position changes every 2 hours will continue with pain management and will add IV pain medications as well Awaiting finalized cultures, she did receive a PICC line Encouraged oral intake and increased activity as tolerated PT/OT therapy plan was to return to [facility] for continued PT/OT therapy. Patient is requesting hospice and palliative care consult placed. This was discussed with daughter Amaris over the phone who is agreeable and will be meeting with palliative nurse practitioner in the a.m. for a meeting Due to multiple complex medical issues, prognosis is guarded. The impression and plan of care has been dictated by Anitha Gillespie Nurse Practitioner as directed. Dr. Ray MD I have performed a history and examination and MDM of this patient, discussed the same with the dictator, and agree with the dictator's assessment and plan as written ,documented as a scribe. Based on total visit time, I have performed more than 50% of the visit. Objective - Vital Signs Vital signs: Vital Signs Temp 98.3 F 08/28/22 12:13 Pulse 120 H 08/28/22 12:13 Resp 16 08/28/22 12:13 BP 146/69 08/28/22 12:13 Pulse Ox 94 L 08/28/22 12:13 FiO2 Intake & Output 08/27/22 08/28/22 08/28/22 18:59 06:59 18:59 Output Total 500 550 900 Balance -500 -550 -900 Weight 58.967 kg Output: Urine 500 550 900 Other: Voiding Method Indwelling Catheter Indwelling Catheter Indwelling Catheter - Labs CBC & Chem 7: 08/28/22 07:04 08/28/22 06:58 Labs: Abnormal Lab Results - Last 24 Hours (Table) 08/28/22 08/28/22 Range/Units 06:58 07:04 RBC 2.87 L (4.10-5.20) X 10*6/uL Hgb 7.7 L (12.0-15.0) g/dL Hct 24.7 L (37.2-46.3) % MCH 26.8 L (27.0-32.0) pg MCHC 31.2 L (32.0-37.0) g/dL RDW 15.9 H (11.5-14.5) % MPV 12.4 H (9.5-12.2) fL Chloride 111 H (96-109) mmol/L Carbon Dioxide 19.6 L (20.0-27.5) mmol/L Microbiology - Last 24 Hours (Table) 08/26/22 17:07 Gram Stain - Preliminary Back Wound Culture - Preliminary Gram Neg Bacilli 08/26/22 17:07 Gram Stain - Preliminary Back Tissue Culture - Preliminary Gram Neg Bacilli 08/25/22 14:12 Blood Culture - Preliminary Blood No Growth after 48 hours 08/21/22 13:04 Blood Culture - Final Blood No Growth after 144 hours 08/21/22 13:04 Blood Culture - Final Blood No Growth after 144 hours
[2022-08-29] MEDS ORDERED: VANCOMYCIN TROUGH DUE 1 EACH MISC MISCELLANE ONE (05:00)
[2022-08-29] MEDS: VANCOMYCIN 1,000 MG in SODIUM CHLORIDE 0.9% 250 ML IVPB SCH (06:13)
[2022-08-29] MEDS: IPRATROPIUM-ALBUTEROL 3 ML NEB INHALATION SCH ×3 (08:09→20:21)
--- NOTE | 2022-08-29 08:12 | P.PN ---
Subjective Progress Note Date: 08/27/22 Principal diagnosis: Infected sacral pressure ulcer She is a 77-year-old female who was sent to the ER for evaluation of worsening sacral pressure ulcer patient did have a surgical debridement of sacral pressure ulcer by general surgery culture were positive for MRSA Proteus and E. coli. On today's evaluation that is 08/27/2022, the patient remains to be afebrile, the patient is breathing comfortably on the 3 L nasal cannula, the patient denies any chest pain or shortness of breath no significant cough or sputum production no abdominal pain no diarrhea pain to the sacral wound is controlled she Objective - Vital Signs Vital signs: Vital Signs Temp 98.0 F 08/27/22 07:08 Pulse 66 08/27/22 07:08 Resp 16 08/27/22 07:08 BP 180/67 08/27/22 07:08 Pulse Ox 99 08/27/22 07:08 FiO2 Intake & Output 08/26/22 08/27/22 08/27/22 18:59 06:59 18:59 Intake Total 550 Output Total 105 400 Balance 445 -400 Intake: IV 550 Output: Urine 100 400 Estimated Blood Loss 5 Other: Voiding Method Indwelling Catheter Indwelling Catheter Indwelling Catheter - Exam GENERAL DESCRIPTION: An elderly female lying in bed in no distress RESPIRATORY SYSTEM: Unlabored breathing , decreased breath sounds at bases HEART: S1 S2 regular rate and rhythm , ABDOMEN: Soft , no tenderness Sacral pressure ulcer currently covered with a wound VAC EXTREMITIES: No edema feet - Labs CBC & Chem 7: 08/28/22 07:04 08/28/22 06:58 Labs: Abnormal Lab Results - Last 24 Hours (Table) 08/27/22 08/27/22 Range/Units 07:17 07:17 RBC 3.32 L (4.10-5.20) X 10*6/uL Hgb 8.9 L (12.0-15.0) g/dL Hct 29.5 L (37.2-46.3) % MCH 26.8 L (27.0-32.0) pg MCHC 30.2 L (32.0-37.0) g/dL RDW 16.3 H (11.5-14.5) % Plt Count 139 L (140-440) X 10*3/uL MPV 12.8 H (9.5-12.2) fL Chloride 112 H (98-107) mmol/L Carbon Dioxide 20 L (22-30) mmol/L Microbiology - Last 24 Hours (Table) 08/26/22 17:07 Tissue Culture - Preliminary Back 08/26/22 17:07 Anaerobic Culture - Preliminary Back 08/26/22 17:07 Anaerobic Culture - Preliminary Back 08/26/22 17:07 Wound Culture - Preliminary Back 08/25/22 14:12 Blood Culture - Preliminary Blood No Growth after 24 hours 08/21/22 13:04 Blood Culture - Preliminary Blood No Growth after 120 hours 08/21/22 13:04 Blood Culture - Preliminary Blood No Growth after 120 hours Assessment and Plan (1) Stage IV pressure ulcer of sacral region Current Visit: Yes Status: Acute Code(s): L89.154 - PRESSURE ULCER OF SACRAL REGION, STAGE 4 SNOMED Code(s): 39879621624324 Plan: 1patient with infected sacral pressure ulcer with the superficial culture grew E. coli Proteus and MRSA in this patient history as per surgical department un fortunately no deep culture done at time of surgery patient did have bone palpable at the base of the wound suspicious for osteomyelitis of the sacrum in this patient who did have elevated sed rate. Patient is status post surgical debridement and deep culture those will be followed for now we will continue the patient on Rocephin and vancomycin adjusted anybody further on the basis of culture report Time with Patient: Less than 30
--- NOTE | 2022-08-29 08:13 | XR ---
EXAMINATION TYPE: XR ankle complete LT DATE OF EXAM: 08/27/2022 4:14 PM INDICATION: Patient age:Female; 77 years old; Reason for study: Left bimalleolar ankle fx f/u; COMPARISON: Multiple priors including CT on 05/23/2022 and ankle radiographs on 01/30/2020 05/22/2022. TECHNIQUE: The left ankle is imaged in frontal, lateral projections. FINDINGS: There is patchy disuse osteopenia in throughout the foot which limits evaluation. Redemonstration of distal tibia fractures with the foot subluxed anteriorly. There is some osseous healing changes present however these are suboptimally evaluated given osteopenia. There may be displaced fragments present posteriorly which due to technique evaluation slightly limited.. No new acute fractures are visualized. There is soft tissue swelling present. IMPRESSION: Osseous remodeling changes with patchy disuse osteopenia. There is subluxed anterior ankle mortise. No new acute fractures visualized. Further evaluation with CT ankle should be considered given limitation of radiography. MTDD
--- NOTE | 2022-08-29 08:14 | P.PN ---
Subjective Progress Note Date: 08/28/22 Principal diagnosis: Infected sacral pressure ulcer She is a 77-year-old female who was sent to the ER for evaluation of worsening sacral pressure ulcer patient did have a surgical debridement of sacral pressure ulcer by general surgery culture were positive for MRSA Proteus and E. coli. Patient did have a repeat surgical debridement and deep culture as well as bone biopsy completed on 08/26/2022 On today's evaluation that is 08/28/2022, the patient continues to be afebrile, the patient is breathing comfortably, the patient denies any chest pain or shortness of breath, the patient did have occasional dry cough production, no nausea no vomiting no abdominal pain no diarrhea Objective - Vital Signs Vital signs: Vital Signs Temp 98.3 F 08/28/22 12:13 Pulse 120 H 08/28/22 12:13 Resp 16 08/28/22 12:13 BP 146/69 08/28/22 12:13 Pulse Ox 94 L 08/28/22 12:13 FiO2 Intake & Output 08/27/22 08/28/22 08/28/22 18:59 06:59 18:59 Output Total 500 550 900 Balance -500 -550 -900 Weight 58.967 kg Output: Urine 500 550 900 Other: Voiding Method Indwelling Catheter Indwelling Catheter Indwelling Catheter - Exam GENERAL DESCRIPTION: An elderly female lying in bed in no distress RESPIRATORY SYSTEM: Unlabored breathing , decreased breath sounds at bases HEART: S1 S2 regular rate and rhythm , ABDOMEN: Soft , no tenderness Sacral pressure ulcer currently covered with a wound VAC EXTREMITIES: No edema feet - Labs CBC & Chem 7: 08/28/22 07:04 08/28/22 06:58 Labs: Abnormal Lab Results - Last 24 Hours (Table) 08/28/22 08/28/22 Range/Units 06:58 07:04 RBC 2.87 L (4.10-5.20) X 10*6/uL Hgb 7.7 L (12.0-15.0) g/dL Hct 24.7 L (37.2-46.3) % MCH 26.8 L (27.0-32.0) pg MCHC 31.2 L (32.0-37.0) g/dL RDW 15.9 H (11.5-14.5) % MPV 12.4 H (9.5-12.2) fL Chloride 111 H (96-109) mmol/L Carbon Dioxide 19.6 L (20.0-27.5) mmol/L Microbiology - Last 24 Hours (Table) 08/26/22 17:07 Gram Stain - Preliminary Back Wound Culture - Preliminary Gram Neg Bacilli 08/26/22 17:07 Gram Stain - Preliminary Back Tissue Culture - Preliminary Gram Neg Bacilli 08/25/22 14:12 Blood Culture - Preliminary Blood No Growth after 48 hours 08/21/22 13:04 Blood Culture - Final Blood No Growth after 144 hours 08/21/22 13:04 Blood Culture - Final Blood No Growth after 144 hours Assessment and Plan (1) Stage IV pressure ulcer of sacral region Current Visit: Yes Status: Acute Code(s): L89.154 - PRESSURE ULCER OF SACRAL REGION, STAGE 4 SNOMED Code(s): 00116696722106 Plan: 1patient with infected sacral pressure ulcer with the superficial culture grew E. coli Proteus and MRSA in this patient history as per surgical department unfortunately no deep culture done at time of surgery patient did have bone palpable at the base of the wound suspicious for osteomyelitis of the sacrum in this patient who did have elevated sed rate. Patient is status post surgical debridement and deep culture those are currently pending 2patient to continue with the vancomycin dosing to be adjusted to keep the trough around 15 and kidney function monitored closely continue with Rocephin Time with Patient: Less than 30
[2022-08-29] MEDS: HEPARIN SODIUM,PORCINE/PF 5,000 UNIT/0.5 ML SYRINGE SQ SCH ×3 (09:55→23:05)
[2022-08-29] MEDS: PANTOPRAZOLE 40 MG/10 ML VIAL IVP SCH ×2 (09:55→20:18)
[2022-08-29] MEDS: SERTRALINE 50 MG TAB PO SCH (09:56)
[2022-08-29] MEDS: FAMOTIDINE 20 MG TAB PO SCH (09:56)
[2022-08-29] MEDS: hydrALAZINE HCL 50 MG TAB PO SCH ×2 (09:56→20:17)
[2022-08-29] MEDS: ASPIRIN 81 MG PO SCH (09:56)
[2022-08-29] MEDS: FOLIC ACID 1 MG TAB PO SCH (09:56)
[2022-08-29] MEDS: POTASSIUM CHLORIDE ER 20 MEQ TAB.ER PO SCH (09:56)
[2022-08-29] MEDS: MEGESTROL 400 MG/10 ML CUP PO SCH (09:56)
[2022-08-29] MEDS: MULTIVITAMINS, THERA 1 EACH TAB PO SCH (09:57)
[2022-08-29] MEDS: DOCUSATE 100 MG CAP PO SCH ×2 (09:57→20:17)
[2022-08-29] MEDS: amLODIPine 10 MG TAB PO SCH (09:57)
[2022-08-29] MEDS: MAGNESIUM OXIDE 400 MG TAB PO SCH (09:57)
[2022-08-29] MEDS: FUROSEMIDE 40 MG TAB PO SCH (09:57)
[2022-08-29] MEDS: Acetaminophen-Codeine 300-30mg TAB PO PRN (10:01)
[2022-08-29 10:03] LABS: Non-African American GFR(CKD) 71.6 (60.0-200.0)
--- NOTE | 2022-08-29 10:36 | P.CONS ---
History of Present Illness - Reason for Consult Consult date: 08/29/22 Goals of care Requesting physician: Anitha Gillespie - Chief Complaint Fialure to thrive and worsening sacral decubitus ulcer - History of Present Illness The patient is a 77-year-old female with a past medical history significant for coronary artery disease, hyperlipidemia, hypertension, osteoarthritis, UTIs, anxiety, and depression. She presented to the emergency department on 08/21/2022 from a rehab for evaluation of worsening sacral decubitus ulcer and failure to thrive. In the ED, patient's vital signs were within normal limits. Laboratory workup was mostly unremarkable except for mild hypercalcemia. UA showed large leukocyte esterase, negative nitrites. Urine culture was negative. Chest x-ray showed no acute process. Patient has gone to the OR twice for debridement of her sacral decubitus ulcer. Cultures were obtained and those cultures grew E. coli Proteus and MRSA. Infectious disease has been following, a PICC line has been placed, and the patient has been receiving IV antibiotics. The patient has continued to have portal oral intake and has been evaluated by speech therapy with no signs of aspiration. The patient has also been started on Megace and encouraged to increase her oral intake. Surgery has recommended a PEG tube if no improvement in oral intake. The patient has voiced that she does not want a feeding tube. On 08/28/2022 the patient was alert and oriented and expressed the desire to discuss hospice with nursing staff. 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 CATARACTS RONY. carpal tunnelWITH LENS IMPLANT 2008, lower back spinal fusion 2018, left knee surgery 2018., Past Anesthesia/Blood Transfusion Reactions: Postoperative Nausea & Vomiting (PONV) Additional Past Anesthesia/Blood Transfusion Reaction / Comm: PONV and hard to wake up Past Psychological History: Anxiety, Depression Additional Psychological History / Comment(s): . Smoking Status: Former smoker Past Alcohol Use History: None Reported Additional Past Alcohol Use History / Comment(s): QUIT 2008 WAS 1PPD smoker since age 17 or 19. She denies any medical marijuana, marijuana, street drug or alcohol use. She lives at home with her of 52 years. Past Drug Use History: None Reported - Past Family History Brother(s) Additional Family Medical History / Comment(s): Shunt has 1 brother and 1 sister but she does not have any contact with them. Patient has 3 children that are all healthy. Mother Family Medical History: Cancer Additional Family Medical History / Comment(s): . Father Family Medical History: Cancer Additional Family Medical History / Comment(s): . Medications and Allergies Home Medications Medication Instructions Recorded Confirmed Type Multivitamins, Thera [Multivitamin 1 tab PO DAILY 06/14/16 08/21/22 History (formulary)] Potassium Chloride [Klor-Con 20] 20 meq PO DAILY 07/24/18 08/21/22 History Aspirin [Children's Aspirin] 81 mg PO DAILY 01/21/19 08/21/22 History Folic Acid 1 mg PO DAILY 01/21/19 08/21/22 History Ergocalciferol [Vitamin D2 (1250 1,250 mcg PO SAMANIEGO 05/24/21 08/21/22 History Mcg = 76621 Iu)] Famotidine [Pepcid] 20 mg PO DAILY #0 tab 04/19/22 08/21/22 Rx Mirtazapine 7.5 mg PO HS 05/23/22 08/21/22 History Acetaminophen Tab [Tylenol] 650 mg PO Q6HR PRN tab 06/03/22 08/21/22 Rx Furosemide [Lasix] 40 mg PO DAILY tab 06/03/22 08/21/22 Rx Ipratropium-Albuterol Nebulize 3 ml INHALATION RT-TID PRN each 06/03/22 08/21/22 Rx [Duoneb 0.5 mg-3 mg/3 ml Soln] Sodium Bicarbonate Tab 650 mg PO BID tab 06/03/22 08/21/22 Rx amLODIPine [Norvasc] 10 mg PO DAILY tab 06/03/22 08/21/22 Rx Pregabalin [Lyrica] 100 mg PO BID@1400,2100 #4 cap 06/21/22 08/21/22 Rx Docusate [Colace] 100 mg PO BID 08/06/22 08/21/22 History Magnesium Hydroxide [Milk of 2,400 mg PO DAILY PRN 08/06/22 08/21/22 History Magnesia] Sertraline [Zoloft] 50 mg PO DAILY 08/06/22 08/21/22 History hydrALAZINE HCL [Apresoline] 50 mg PO BID #60 tab 08/13/22 08/21/22 Rx Collagenase [Santyl Ointment] 1 applic TOPICAL DAILY PRN 08/21/22 08/21/22 History Collagenase [Santyl Ointment] 1 applic TOPICAL HS 08/21/22 08/21/22 History lidocaine HCL [lidocaine HCL 5 ml PO QID PRN 08/21/22 08/21/22 History Viscous] Allergies Allergy/AdvReac Type Severity Reaction Status Date / Time alprazolam [From Xanax] Allergy Unknown Verified 08/21/22 13:02 amlodipine [From Norvasc] Allergy Unknown Verified 08/21/22 13:02 amoxicillin trihydrate AdvReac Severe Nausea & Verified 08/21/22 13:02 [From Augmentin] Vomiting & Diarrhea potassium clavulanate AdvReac Severe Nausea & Verified 08/21/22 13:02 [From Augmentin] Vomiting & Diarrhea sulfamethoxazole AdvReac Severe affected Verified 08/21/22 13:02 [From Bactrim] muscles - couldn't move trimethoprim [From Bactrim] AdvReac Severe affected Verified 08/21/22 13:02 muscles - couldn't move diazepam [From Valium] AdvReac hard time Verified 08/21/22 13:02 coming out of anesthesia Xmfjrae-MTB-XoN Reductase AdvReac leg cramps Verified 08/21/22 13:02 Inhibitor [Nxodbqy-Luw-Jgd Reductase Inhibitor] Sulfa (Sulfonamide AdvReac affected Verified 08/21/22 13:02 Antibiotics) muscles - couldn't move Physical Exam Vitals: Vital Signs Temp Pulse Pulse Resp BP Pulse Ox 08/29/22 08:19 103 H 08/29/22 08:07 107 H 08/29/22 08:06 94 L 08/29/22 07:29 98.7 F 77 18 154/68 98 08/29/22 02:07 98.9 F 69 18 137/55 95 08/28/22 19:50 16 08/28/22 19:34 98.3 F 95 16 146/61 96 08/28/22 12:13 98.3 F 120 H 16 146/69 94 L 08/28/22 11:52 113 H 08/28/22 11:34 105 H 95 Intake and Output 08/28/22 08/29/22 08/29/22 22:59 06:59 14:59 Intake Total 900 Output Total 400 500 Balance -400 400 Intake: Intake, IV Titration 600 Amount Sodium Chloride 0.9% 1, 300 000 ml @ 50 mls/hr IV . Q20H [facility] Rx#:[id number] Vancomycin 1,000 mg In 250 Sodium Chloride 0.9% 250 ml @ 125 mls/hr IVPB Q16H [facility] Rx#:[id number] cefTRIAXone 2 gm In 50 Sodium Chloride 0.9% 50 ml @ 100 mls/hr IVPB Q24H [facility] Rx#:[id number] Oral 300 Output: Urine 400 500 Other: Voiding Method Indwelling Catheter General: Well developed, well nourished. No acute distress. Chronically ill appearing. Appears stated age HEENT: Head is atraumatic, normocephalic. Sclera are clear. . CV: Heart regular in rate and rhythm positive S1 and S2. Lungs: Diminished bases bilaterally. No wheezes rales or rhonchi. Respirations even and nonlabored. On 2 L NC Abdomen/GI: Soft. No guarding, rigidity, or abdominal tenderness. : No suprapubic tenderness. Navarrete catheter present draining clear yellow urine Musculoskeletal/ Extremities: No gross atrophy. + generalized weakness Vascular: Radial pulses equal. 2/4. ? peripheral edema Skin: Warm and dry, No rash or lesions. Neurologic: Unable to assess Results CBC & Chem 7: 08/28/22 07:04 08/28/22 06:58 Labs: Abnormal Lab Results - Last 24 Hours (Table) 08/28/22 08/28/22 Range/Units 06:58 07:04 RBC 2.87 L (4.10-5.20) X 10*6/uL Hgb 7.7 L (12.0-15.0) g/dL Hct 24.7 L (37.2-46.3) % MCH 26.8 L (27.0-32.0) pg MCHC 31.2 L (32.0-37.0) g/dL RDW 15.9 H (11.5-14.5) % MPV 12.4 H (9.5-12.2) fL Chloride 111 H (96-109) mmol/L Carbon Dioxide 19.6 L (20.0-27.5) mmol/L Microbiology - Last 24 Hours (Table) 08/26/22 17:07 Gram Stain - Preliminary Back Wound Culture - Preliminary Escherichia coli Citrobacter amalonaticus Providencia stuartii Group D Enterococcus 08/26/22 17:07 Gram Stain - Preliminary Back Tissue Culture - Preliminary Escherichia coli Proteus mirabilis Group D Enterococcus 08/25/22 14:12 Blood Culture - Preliminary Blood No Growth after 72 hours Assessment and Plan Assessment: Symptoms * Pain - sacral pain, continue Tylenol #3, and Lyrica * Fatigue - general weakness and fatigue * SOB - occasional shortness of breath, on 2 L O2, continue DuoNeb, and Lasix * Insomnia - no * N/V - no * Anxiety/depression - yes, patient has had a psych consult. Continue Zoloft and Remeron * Confusion - occasional * Agitation - no * Hallucinations - no * Appetite/weight loss - the patient has had a poor appetite. Encourage oral intake. Continue high-protein high-calorie diet and calorie count. Continue ensure supplement TIDWM and Megace * Dysphagia - DYNAMIC ETCHING PROCESSOR consulted, no s/s aspiration * Constipation - No BM recorded in EMR, Continue colace * Incontinence - Chronic Navarrete catheter for retention * Itch - No * Cough - No Plan: Summary/Goals - The patient is lying in bed with her eyes open. She is not answering any questions. Her daughter, Amaris, and her , Kendrick, are present. Information was provided regarding palliative care and hospice philosophies and services. She nods her head occasionally to questions, but does not verbalize her wishes. The patient's daughter Amaris stated that her mother does not want to keep coming back and forth to the hospital. She has not been happy at rehab. The patient's daughter stated that she broke her fibula in April and has not been ambulatory since. She does not believe she is happy with her current quality of life. The patient's has not had conversations regarding end of life wishes with her. They both agree that focusing on their mother's comfort and quality of life should be the priority and are interested in hospice. Multiple attempts were made to try and involve the patient with the conversation, but she would close her eyes and not answer questions. It is difficult to assess her mental status and insight. The family agreed to a hospice informational meeting. However, they are having trouble deciding between home hospice or a hospice house. The patient lives with her in a mobile home. It was explained that hospice does not provide 24/7 care at home. He seemed to think he would be able to care for her. He stated that he would do whatever she needed. At one point the patient did state that she wants to go home. The patient's daughter stated that she would also like information about [facility]. It was decided that they would start with an informational meeting with [facility]. If needed, [facility] will be contacted for an informational meeting as well. manager activities and [facility] team notified. Recommendations - hospice Advanced Directives - none on file Code Status - full code Thank you for this consultation [facility] Palliative Care Spectralink [phone] Email: [email or web address] Time with Patient: Greater than 30
--- NOTE | 2022-08-29 13:37 | P.PN ---
Subjective Progress Note Date: 08/29/22 CHIEF COMPLAINT: Sacral decubitus ulcer HISTORY OF PRESENT ILLNESS: Patient is status post 2 debridements of the sacral decubitus ulcer. Her last debridement was on August [address] Bryant and had biopsy of the sacral bone and has wound VAC in place. Patient continues to have poor oral intake. Patient seen by palliative care service today and patient and family want to proceed with hospice. Afebrile. PHYSICAL EXAM: VITAL SIGNS: Reviewed. GENERAL: Well-developed in no acute distress. HEENT: No sclera icterus. Extraocular movements grossly intact. Moist buccal mucosa. Head is atraumatic, normocephalic. ABDOMEN: Soft. Nondistended. Nontender. Wound VAC in place NEUROLOGIC: Sleeping comfortably ASSESSMENT: 1. Sacral decubitus ulcer status post debridement 2 2. Poor oral intake PLAN: -Patient and family proceeding with hospice care -Continue supportive care Physician Slot Machine Key Person note has been reviewed by physician. Signing provider agrees with the documented findings, assessment, and plan of care. I have personally seen and examined the patient, reviewed the PROCESS HELPER /PAs history, exam and MDM and agree with the assessment and plan as written. Based on total visit time, I have performed more than 50% of the visit. As above: Patient with persistent poor oral intake. She is not interested in feeding tube placement. Tentative plans for hospice at this time. Continue local wound care at the decubitus ulcer site. We will sign off at this point. Please call if needed. Objective - Vital Signs Vital signs: Vital Signs Temp 98.7 F 08/29/22 07:29 Pulse 103 H 08/29/22 08:19 Resp 18 08/29/22 07:29 BP 154/68 08/29/22 07:29 Pulse Ox 94 L 08/29/22 08:06 FiO2 Intake & Output 08/28/22 08/29/22 08/29/22 18:59 06:59 18:59 Intake Total 900 Output Total 1300 500 Balance -1300 400 Intake: Intake, IV Titration 600 Amount Sodium Chloride 0.9% 1, 300 000 ml @ 50 mls/hr IV . Q20H [facility] Rx#:[id number] Vancomycin 1,000 mg In 250 Sodium Chloride 0.9% 250 ml @ 125 mls/hr IVPB Q16H [facility] Rx#:[id number] cefTRIAXone 2 gm In 50 Sodium Chloride 0.9% 50 ml @ 100 mls/hr IVPB Q24H [facility] Rx#:[id number] Oral 300 Output: Urine 1300 500 Other: Voiding Method Indwelling Catheter Indwelling Catheter Indwelling Catheter - Labs CBC & Chem 7: 08/28/22 07:04 08/29/22 05:56 Labs: Microbiology - Last 24 Hours (Table) 08/26/22 17:07 Gram Stain - Preliminary Back Wound Culture - Preliminary Escherichia coli Citrobacter amalonaticus Providencia stuartii Group D Enterococcus 08/26/22 17:07 Gram Stain - Preliminary Back Tissue Culture - Preliminary Escherichia coli Proteus mirabilis Group D Enterococcus 08/25/22 14:12 Blood Culture - Preliminary Blood No Growth after 72 hours
--- NOTE | 2022-08-29 14:05 | P.PN ---
Subjective Progress Note Date: 08/29/22 Principal diagnosis: Infected sacral pressure ulcer She is a 77-year-old female who was sent to the ER for evaluation of worsening sacral pressure ulcer patient did have a surgical debridement of sacral pressure ulcer by general surgery culture were positive for MRSA Proteus and E. coli. Patient did have a repeat surgical debridement and deep culture as well as bone biopsy completed on 08/26/2022 On today's evaluation that is 08/29/2022, the patient remains to be afebrile, the patient is breathing comfortably on nasal cannula oxygen, the patient denies any chest pain or shortness of breath, the patient did have occasional dry cough production, no nausea no vomiting no abdominal pain no diarrhea, pain to the sacral wound is controlled Objective - Vital Signs Vital signs: Vital Signs Temp 98.7 F 08/29/22 07:29 Pulse 103 H 08/29/22 08:19 Resp 18 08/29/22 07:29 BP 154/68 08/29/22 07:29 Pulse Ox 94 L 08/29/22 08:06 FiO2 Intake & Output 08/28/22 08/29/22 08/29/22 18:59 06:59 18:59 Intake Total 900 Output Total 1300 500 Balance -1300 400 Intake: Intake, IV Titration 600 Amount Sodium Chloride 0.9% 1, 300 000 ml @ 50 mls/hr IV . Q20H [facility] Rx#:[id number] Vancomycin 1,000 mg In 250 Sodium Chloride 0.9% 250 ml @ 125 mls/hr IVPB Q16H [facility] Rx#:[id number] cefTRIAXone 2 gm In 50 Sodium Chloride 0.9% 50 ml @ 100 mls/hr IVPB Q24H [facility] Rx#:[id number] Oral 300 Output: Urine 1300 500 Other: Voiding Method Indwelling Catheter Indwelling Catheter Indwelling Catheter - Exam GENERAL DESCRIPTION: An elderly female lying in bed in no distress RESPIRATORY SYSTEM: Unlabored breathing , decreased breath sounds at bases HEART: S1 S2 regular rate and rhythm , ABDOMEN: Soft , no tenderness Sacral pressure ulcer currently covered with a wound VAC EXTREMITIES: No edema feet - Labs CBC & Chem 7: 08/28/22 07:04 08/29/22 05:56 Labs: Microbiology - Last 24 Hours (Table) 08/26/22 17:07 Gram Stain - Preliminary Back Wound Culture - Preliminary Escherichia coli Citrobacter amalonaticus Providencia stuartii Group D Enterococcus 08/26/22 17:07 Gram Stain - Preliminary Back Tissue Culture - Preliminary Escherichia coli Proteus mirabilis Group D Enterococcus 08/25/22 14:12 Blood Culture - Preliminary Blood No Growth after 72 hours Assessment and Plan (1) Stage IV pressure ulcer of sacral region Current Visit: Yes Status: Acute Code(s): L89.154 - PRESSURE ULCER OF SACRAL REGION, STAGE 4 SNOMED Code(s): 80064778594635 Plan: 1patient with infected sacral pressure ulcer with the superficial culture grew E. coli Proteus and MRSA in this patient history as per surgical department unfortunately no deep culture done at time of surgery patient did have bone palpable at the base of the wound suspicious for osteomyelitis of the sacrum in this patient who did have elevated sed rate. Patient is status post surgical debridement and deep culture those are currently growing E. coli Proteus and enterococcus sensitivities on enterococcus are currently pending 2patient to continue with the vancomycin along with Rocephin and local wound care with a wound VAC Family the bedside questions were answered Time with Patient: Less than 30
[2022-08-29] MEDS: PREGABALIN 100 MG CAP PO SCH ×2 (15:25→20:17)
--- NOTE | 2022-08-29 15:38 | P.PN ---
Subjective Progress Note Date: 08/29/22 Patient is a 77-year-old female with recent admission for acute urinary tract infection, and urinary retention and past medical history of hypertension and dyslipidemia presenting from [facility] for failure to thrive and worsening sacral decubitus ulcer. Patient currently denies any chest pain, shortness of breath, abdominal pain, nausea, vomiting, diarrhea, constipation, or urinary complaints. Patient is not ambulatory at baseline. Per patient's daughter, patient has not been eating or drinking well at the nursing facility. In the ED, patient's vital signs were within normal limits. Laboratory workup was mostly unremarkable except for mild hypercalcemia. UA showed large leukocyt e esterase, negative nitrites. Chest x-ray showed no acute process. Patient being admitted for further workup for sacral decubitus ulcer and failure to thrive. 08/24/2022 Patient is seen and evaluated in follow-up today with infectious disease following. Patient is maintained on IV antibiotics evaluated cultures. Recommend continue with local wound care with general surgery in consultation for possible debridement of the decubitus ulcer. Patient is currently afebrile denies chest pain or shortness of breath. Patient is tolerating diet and recommend aspiration precautions and encouraged oral intake. Recommend frequent position changes every 2 hours will continue to monitor closely. 08/25/2022 Patient is seen and evaluated in follow-up today currently nothing by mouth as patient was tentatively scheduled to undergo debridement of the sacral ulcer with general surgery today although potassium low at 24 surgical debridement in 24 hours.. WBC remains normal 8.9 hemoglobin is stable at 9.8, sodium is 140, potassium is 2.8 and will replace, magnesium is 1.7. Patient continues on IV antibiotics with infectious disease following. Patient will need PICC line and outpatient antibiotics. Patient plans to return to rehab once stabilized discharge. Patient is currently afebrile denies chest pain or worsening shortness of breath. Patient reports she is tired. 08/26/2022 Patient is seen in follow-up this morning currently sleeping although arousable. Patient is nothing by mouth as patient is scheduled to undergo debridement along with T2 tissue biopsies and bone biopsy of her stage IV sacral ulcer with general surgery. Labs reviewed and electrolytes including potassium and magnesium replaced and within normal limits today. Patient is afebrile denies chest pain or shortness of breath. Infectious disease following an patient is maintained on IV antibiotics as well. 08/27/2022 Patient seen and evaluated follow-up status post debridement with deep tissue biopsy with general surgery. Patient is maintained on IV antibiotics with infectious disease following as well. Wound VAC has been applied and tolerating those far. Patient currently concerned with poor oral speech therapy to evaluate the patient. Encouraged oral intake and decreased activity as pedrito ated. Electrolytes replacement protocol and showing improvement will follow-up with repeat labs. Awaiting deep tissue cultures to determine discharge antibiotics. Plan is for return to [facility] for continued PT/OT therapy along with IV antibiotic management. Patient received a PICC line. Patient is currently afebrile denies chest pain or shortness of breath. 08/28/2022 Patient is seen and evaluated today with multiple medical consultations following. Patient is maintained on IV antibiotics with infectious disease following and has received a PICC line waiting on finalized cultures to det ermine discharge antibiotics. Surgery as well post I&D deep cultures were obtained and pending along with bone specimen. Patient's oral intake is marginal and reports not much of an appetite. Patient started on Megace and encouraged oral intake. Patient is alert and oriented and expressing the desire to discuss hospice. Discussed with daughter over the phone and palliative care consult placed to discuss overall treatment plan and palliative versus hospice. Surgery following recommending PEG tube if no improvement in oral intake and patient is adamantly refusing. We'll continue to monitor closely follow-up with palliative is there is a plan for a 9:30 AM meeting in the morning. Case m anagement notified as well with possible hospice being considered. Patient is currently afebrile denies chest pain or shortness of breath. 08/29/2022 Patient is seen and evaluated in follow-up with family members including daughter and at the bedside. Family has met with palliative and hospice and working on [facility] in [place]. Patient was talked to at length and would like to proceed with hospice. Patient understands she will receive no further treatment in regards to her infections and wounds other than comfort. Patient is agreeable with this. Surgery and infectious disease following an discussed with the patient about possible PEG tube and patient is adamant against that and wants to continue with hospice. Overall prognosis remains guarded and [facility] hosp[facility] following along with case management and discharge planning is being initiated. [facility] in [place] currently does not have any beds although will likely have a bed in 24 hours. Patient is currently afebrile denies chest pain or shortness of breath. Patient reports the pain in her back and her buttock and will adjust medications to keep the patient comfortable. No reports of nausea or vomiting patient is attempting to eat although very little. Review of systems: Constitutional: No reports of fatigue, fever, or chills Cardiovascular: No reports of chest pain or palpitations Respiratory: No reports of shortness of breath or cough GI: No reports of nausea, vomiting, or diarrhea reports poor appetite : No reports of dysuria or retention Neurovascular: reports of generalized weakness , reports buttock pain All medications have been reviewed Physical exam: Gen: This is a 77 year old female who is awake, alert and oriented 3, well- developed, well-nourished, elderly-appearing female HEENT: Head is atraumatic, normocephalic. Pupils equal, round. Sclerae is anicteric. NECK: Supple. No JVD. No lymphadenopathy. No thyromegaly. LUNGS: Diminished breath sounds bilaterally with no wheezes, scattered rhonchi. No intercostal retractions. HEART: Regular rate and rhythm. No murmur. ABDOMEN: Soft. Obese. Bowel sounds are present. No masses. No tenderness. EXTREMITIES: No pedal edema. No calf tenderness. NEUROLOGICAL: Patient is awake, alert and oriented x2. Cranial nerves 2 through 12 are grossly intact. Diffusely weak Assessment: Stage IV Sacral decubitus ulcer status post I&D with debridement on 08/26/2021, initial cultures growing E. coli, Proteus, MRSA Bilateral foot ulcer Chronic urinary retention with chronic indwelling Navarrete catheter Mild protein calorie malnutrition Hypertension Hyperlipidemia DVT prophylaxis GI prophylaxis Full code Plan: Recommend continue current medications and management with IV antibiotics and w ound care with infectious disease following. General surgery following and has cleared the patient to continue with wound VAC and local wound care with ID to manage antibiotics Palliative care consult placed and discussed palliative versus hospice inpatient is requesting to go hospice. Hospice was consulted and talking with [facility] is family would like to have a hospice house in [place] Family at the bedside with questions and concerns were answered and goal is to make the patient comfortable. Patient does not want a PEG tube and does not want to continue to seek further medical care. Case management following and will follow-up with [facility] as there is no current bed at this time although possibly one will be available in 24 hours Overall prognosis remains guarded and we'll continue to monitor the patient closely. Possible discharge in 24 hours The impression and plan of care has been dictated by Anitha Gillespie, Nurse Practitioner as directed. Dr. Ray MD I have performed a history and examination and MDM of this patient, discussed the same with the dictator, and agree with the dictator's assessment and plan as written ,documented as a scribe. Based on total visit time, I have performed more than 50% of the visit. Objective - Vital Signs Vital signs: Vital Signs Temp 98.7 F 08/29/22 07:29 Pulse 103 H 08/29/22 08:19 Resp 18 08/29/22 07:29 BP 154/68 08/29/22 07:29 Pulse Ox 94 L 08/29/22 08:06 FiO2 Intake & Output 08/28/22 08/29/22 08/29/22 18:59 06:59 18:59 Intake Total 900 Output Total 1300 500 Balance -1300 400 Intake: Intake, IV Titration 600 Amount Sodium Chloride 0.9% 1, 300 000 ml @ 50 mls/hr IV . Q20H [facility] Rx#:[id number] Vancomycin 1,000 mg In 250 Sodium Chloride 0.9% 250 ml @ 125 mls/hr IVPB Q16H [facility] Rx#:[id number] cefTRIAXone 2 gm In 50 Sodium Chloride 0.9% 50 ml @ 100 mls/hr IVPB Q24H [facility] Rx#:[id number] Oral 300 Output: Urine 1300 500 Other: Voiding Method Indwelling Catheter Indwelling Catheter Indwelling Catheter - Labs CBC & Chem 7: 08/28/22 07:04 08/29/22 05:56 Labs: Microbiology - Last 24 Hours (Table) 08/26/22 17:07 Gram Stain - Preliminary Back Wound Culture - Preliminary Escherichia coli Citrobacter amalonaticus Providencia stuartii Group D Enterococcus 08/26/22 17:07 Gram Stain - Preliminary Back Tissue Culture - Preliminary Escherichia coli Proteus mirabilis Group D Enterococcus 08/25/22 14:12 Blood Culture - Preliminary Blood No Growth after 72 hours
[2022-08-29] MEDS: MIRTAZAPINE 15 MG TAB PO SCH (20:17)
[2022-08-29] MEDS: SODIUM CHLORIDE 0.9% 1,000 ML IV SCH (20:18)
[2022-08-30] MEDS ORDERED: VANCOMYCIN 1,000 MG in SODIUM CHLORIDE 0.9% 250 ML IVPB SCH (07:00)
[2022-08-30 07:36] VITALS: BP 132/68; PULSE 51; RESP 18; TEMP 98.6
[2022-08-30] MEDS: IPRATROPIUM-ALBUTEROL 3 ML NEB INHALATION SCH ×2 (07:56→11:24)
[2022-08-30] MEDS ORDERED: CEFEPIME 2 GM in SODIUM CHLORIDE 0.9% 100 ML IVPB SCH (08:00)
[2022-08-30] MEDS: POTASSIUM CHLORIDE ER 20 MEQ TAB.ER PO SCH (08:38)
[2022-08-30] MEDS: amLODIPine 10 MG TAB PO SCH (08:38)
[2022-08-30] MEDS: FUROSEMIDE 40 MG TAB PO SCH (08:38)
[2022-08-30] MEDS: MULTIVITAMINS, THERA 1 EACH TAB PO SCH (08:38)
[2022-08-30] MEDS: HEPARIN SODIUM,PORCINE/PF 5,000 UNIT/0.5 ML SYRINGE SQ SCH (08:38)
[2022-08-30] MEDS: Acetaminophen-Codeine 300-30mg TAB PO PRN (08:38)
[2022-08-30] MEDS: FOLIC ACID 1 MG TAB PO SCH (08:38)
[2022-08-30] MEDS: hydrALAZINE HCL 50 MG TAB PO SCH (08:38)
[2022-08-30] MEDS: PANTOPRAZOLE 40 MG/10 ML VIAL IVP SCH (08:39)
[2022-08-30] MEDS: DOCUSATE 100 MG CAP PO SCH (08:39)
[2022-08-30] MEDS: FAMOTIDINE 20 MG TAB PO SCH (08:39)
[2022-08-30] MEDS: SERTRALINE 50 MG TAB PO SCH (08:39)
[2022-08-30] MEDS: ASPIRIN 81 MG PO SCH (08:39)
[2022-08-30] MEDS: MAGNESIUM OXIDE 400 MG TAB PO SCH (08:39)
[2022-08-30] MEDS: MEGESTROL 400 MG/10 ML CUP PO SCH (08:42)
[2022-08-30] MEDS ORDERED: DAPTOmycin 350 MG in SODIUM CHLORIDE 0.9% 50 ML IVPB SCH (09:00)
[2022-08-30 09:28] LABS: Non-African American GFR(CKD) 71.6 (60.0-200.0)
--- NOTE | 2022-08-30 10:20 | P.DS ---
Providers Date of admission: 08/23/22 09:41 Expected date of discharge: 08/30/22 Attending physician: Abhijit Bell Consults: 08/22/22 14:23 Consult Physician Urgent Consulting Provider: Ren Ford Consult Reason/Comments: depression Do you want consulting provider notified?: Yes 08/22/22 15:36 Consult Physician Routine Consulting Provider: Art Clements Consult Reason/Comments: Low Extremity Fracture Do you want consulting provider notified?: Yes 08/23/22 15:18 Consult Physician Routine Consulting Provider: Jeromy Santos Consult Reason/Comments: sss Do you want consulting provider notified?: Yes 08/28/22 11:54 Consult to Palliative Care Routine Consulting Provider: Ansley Che Consult Reason/Comments: palliative care/Sacral decub/FTT Do you want consulting provider notified?: Yes Primary care physician: Willy Chiu Hospital Course: Final diagnosis Stage IV Sacral decubitus ulcer status post I&D with debridement on 08/26/2021, initial cultures growing E. coli, Proteus, MRSA Bilateral foot ulcer Chronic urinary retention with chronic indwelling Navarrete catheter Mild protein calorie malnutrition Hypertension Hyperlipidemia DVT prophylaxis GI prophylaxis Discharge disposition Patient is being discharged in a stable condition with guarded prognosis to [facility] . Patient will follow-up with Dr. hCiu in the outpatient setting as needed. Total time taken is greater than 35 minutes. Hospital course This is a 77-year-old female who was recently admitted with worsening decubitus ulcer and is status post incision and drainage and wound VAC placement along with bacteremia and UTI with resistance. Patient being monitored by surgery postintervention along with infectious disease and was continued on wound VAC and antibiotics. Patient is not eating well and stress her wants for hospice. Palliative care nurse evaluated the patient along with family members and they have agreed upon hospice consult was placed. Family will like patient to go to [facility] and arrangements being made. Discussed in detail with patient along with family at the bedside about discontinuing all treatment and care for her current wounds and patient is in understanding and does not want to proceed with any further care. Patient will be going to hospice house today. Currently no reports of chest pain, shortness of breath, or palpitations. Patient is afebrile. No reports of nausea or vomiting and patient is tolerating diet. Oral intake is poor. Patient will be going to [facility] today. Overall poor and guarded prognosis Physical exam: Gen: This is a 77-year-old female who was awake, alert and oriented 3, lethargic, ill-appearing HEENT: Head is atraumatic, normocephalic. Pupils equal, round. Sclerae is anicteric. NECK: Supple. No JVD. No lymphadenopathy. No thyromegaly. LUNGS: Diminished breath sounds bilaterally with some congestion and rhonchi noted, weak cough. No intercostal retractions. HEART: S1, S2 are muffled ABDOMEN: Soft. Bowel sounds are present. No masses. No tenderness. EXTREMITIES: Generalized pedal edema. No calf tenderness. NEUROLOGICAL: Patient is awake, alert and oriented x3. Diffusely weak Please refer to medication reconciliation sheet for a list of medications. The impression and plan of care has been dictated by Anitha Gillespie, Nurse Practitioner as directed. Dr. Kimberly MD I have performed a history and examination and MDM of this patient, discussed the same with the dictator, and agree with the dictator's assessment and plan as written ,documented as a scribe. Based on total visit time, I have performed more than 50% of the visit. Patient Condition at Discharge: Poor Plan - Discharge Summary New Discharge Prescriptions: New Acetaminophen-Codeine 300-30mg [Tylenol w/codeine #3] 1 each PO Q4HR PRN tab PRN Reason: Moderate Pain (Scale 4 To 6) Ipratropium-Albuterol Nebulize [Duoneb 0.5 mg-3 mg/3 ml Soln] 3 ml INHALATION RT-TID each Magnesium Oxide [Mag-Ox] 400 mg PO DAILY tab Continue Multivitamins, Thera [Multivitamin (formulary)] 1 tab PO DAILY Potassium Chloride [Klor-Con 20] 20 meq PO DAILY Folic Acid 1 mg PO DAILY Ipratropium-Albuterol Nebulize [Duoneb 0.5 mg-3 mg/3 ml Soln] 3 ml INHALATION RT-TID PRN each PRN Reason: Shortness Of Breath Or Wheezing Pregabalin [Lyrica] 100 mg PO BID@1400,2100 #4 cap Docusate [Colace] 100 mg PO BID lidocaine HCL [lidocaine HCL Viscous] 5 ml PO QID PRN PRN Reason: mouth sores Ergocalciferol [Vitamin D2 (1250 Mcg = 86882 Iu)] 1,250 mcg PO SAMANIEGO Famotidine [Pepcid] 20 mg PO DAILY #0 tab Mirtazapine 7.5 mg PO HS Furosemide [Lasix] 40 mg PO DAILY tab amLODIPine [Norvasc] 10 mg PO DAILY tab Acetaminophen Tab [Tylenol] 650 mg PO Q6HR PRN tab PRN Reason: Fever and/ or Mild Pain Magnesium Hydroxide [Milk of Magnesia] 2,400 mg PO DAILY PRN PRN Reason: Constipation Sertraline [Zoloft] 50 mg PO DAILY hydrALAZINE HCL [Apresoline] 50 mg PO BID #60 tab Discontinued Aspirin [Children's Aspirin] 81 mg PO DAILY Sodium Bicarbonate Tab 650 mg PO BID tab Collagenase [Santyl Ointment] 1 applic TOPICAL DAILY PRN PRN Reason: wound care Collagenase [Santyl Ointment] 1 applic TOPICAL HS Discharge Medication List Multivitamins, Thera [Multivitamin (formulary)] 1 tab PO DAILY 06/14/16 [History] Potassium Chloride [Klor-Con 20] 20 meq PO DAILY 07/24/18 [History] Folic Acid 1 mg PO DAILY 01/21/19 [History] Ergocalciferol [Vitamin D2 (1250 Mcg = 61917 Iu)] 1,250 mcg PO SAMANIEGO 05/24/21 [History] Famotidine [Pepcid] 20 mg PO DAILY #0 tab 04/19/22 [Rx] Mirtazapine 7.5 mg PO HS 05/23/22 [History] Acetaminophen Tab [Tylenol] 650 mg PO Q6HR PRN tab 06/03/22 [Rx] Furosemide [Lasix] 40 mg PO DAILY tab 06/03/22 [Rx] Ipratropium-Albuterol Nebulize [Duoneb 0.5 mg-3 mg/3 ml Soln] 3 ml INHALATION RT-TID PRN each 06/03/22 [Rx] amLODIPine [Norvasc] 10 mg PO DAILY tab 06/03/22 [Rx] Pregabalin [Lyrica] 100 mg PO BID@1400,2100 #4 cap 06/21/22 [Rx] Docusate [Colace] 100 mg PO BID 08/06/22 [History] Magnesium Hydroxide [Milk of Magnesia] 2,400 mg PO DAILY PRN 08/06/22 [History] Sertraline [Zoloft] 50 mg PO DAILY 08/06/22 [History] hydrALAZINE HCL [Apresoline] 50 mg PO BID #60 tab 08/13/22 [Rx] lidocaine HCL [lidocaine HCL Viscous] 5 ml PO QID PRN 08/21/22 [History] Acetaminophen-Codeine 300-30mg [Tylenol w/codeine #3] 1 each PO Q4HR PRN tab 08/30/22 [Rx] Ipratropium-Albuterol Nebulize [Duoneb 0.5 mg-3 mg/3 ml Soln] 3 ml INHALATION RT-TID each 08/30/22 [Rx] Magnesium Oxide [Mag-Ox] 400 mg PO DAILY tab 08/30/22 [Rx] Follow up Appointment(s)/Referral(s): Willy Chiu MD [Primary Care Provider] - 1-2 days Activity/Diet/Wound Care/Special Instructions: Patient is going to hospice house in [place] Activity as tolerated Continue current diet and preferred foods Discharge Disposition: HOME WITH HOSPICE
[2022-08-30] MEDS: HYDROmorphone 0.5 MG/0.5 ML SYRINGE IVP PRN (12:20)
--- NOTE | 2022-08-30 12:53 | P.PN ---
Subjective Progress Note Date: 08/30/22 The patient is a 77-year-old female with a past medical history significant for coronary artery disease, hyperlipidemia, hypertension, osteoarthritis, UTIs, anxiety, and depression. She presented to the emergency department on 08/21/2022 from a rehab for evaluation of worsening sacral decubitus ulcer and failure to thrive. In the ED, patient's vital signs were within normal limits. Laboratory workup was mostly unremarkable except for mild hypercalcemia. UA showed large leukocyte esterase, negative nitrites. Urine culture was negative. Chest x-ray showed no acute process. Patient has gone to the OR twice for debridement of her sacral decubitus ulcer. Cultures were obtained and those cultures grew E. coli Proteus and MRSA. Infectious disease has been following, a PICC line has been placed, and the patient has been receiving IV antibiotics. The patient has continued to have portal oral intake and has been evaluated by speech therapy with no signs of aspiration. The patient has also been started on Megace and encouraged to increase her oral intake. Surgery has recommended a PEG tube if no improvement in oral intake. The patient has voiced that she does not want a feeding tube. On 08/28/2022 the patient was alert and oriented and expressed the desire to discuss hospice with nursing staff. 08/29 The patient is lying in bed with her eyes open. She is not answering any questions. Her daughter, Amaris, and her , Kendrick, are present. Information was provided regarding palliative care and hospice philosophies and services. She nods her head occasionally to questions, but does not verbalize her wishes. The patient's daughter Amaris stated that her mother does not want to keep coming back and forth to the hospital. She has not been happy at rehab. The patient's daughter stated that she broke her fibula in April and has not been ambulatory since. She does not believe she is happy with her current quality of life. The patient's has not had conversations regarding end of life wishes with her. They both agree that focusing on their mother's comfo rt and quality of life should be the priority and are interested in hospice. Multiple attempts were made to try and involve the patient with the conversation, but she would close her eyes and not answer questions. It is difficult to assess her mental status and insight. The family agreed to a [facility] informational meeting. However, they are having trouble deciding between home hospice or a hospice house. The patient lives with her in a mobile home. It was explained that hospice does not provide 24/7 care at home. He seemed to think he would be able to care for her. He stated that he would do whatever she needed. At one point the patient did state that she wants to go home. The patient's daughter stated that she would also like information about [facility]. It was decided that they would start with an informational meeting with [facility]. If needed, [facility] will be contacted for an informational meeting as well. sales team manager and [facility] team notified. Objective - Vital Signs Vital signs: Vital Signs Temp 98.6 F 08/30/22 07:30 Pulse 51 L 08/30/22 07:30 Resp 18 08/30/22 07:30 BP 132/68 08/30/22 07:30 Pulse Ox 93 L 08/30/22 07:57 FiO2 Intake & Output 08/29/22 08/30/22 08/30/22 18:59 06:59 18:59 Intake Total 550 Output Total 900 650 Balance -900 -100 Intake: Intake, IV Titration 550 Amount Sodium Chloride 0.9% 1, 250 000 ml @ 50 mls/hr IV . Q20H [facility] Rx#:[id number] Vancomycin 1,000 mg In 250 Sodium Chloride 0.9% 250 ml @ 125 mls/hr IVPB Q24H [facility] Rx#:[id number] cefTRIAXone 2 gm In 50 Sodium Chloride 0.9% 50 ml @ 100 mls/hr IVPB Q24H [facility] Rx#:[id number] Output: Urine 900 650 Other: Voiding Method Indwelling Catheter Indwelling Catheter Indwelling Catheter - Exam General: Well developed, well nourished. No acute distress. Chronically ill appearing. Appears stated age HEENT: Head is atraumatic, normocephalic. Sclera are clear. . CV: Heart regular in rate and rhythm positive S1 and S2. Lungs: Diminished bases bilaterally. No wheezes rales or rhonchi. Respirations even and nonlabored. On 2 L NC Abdomen/GI: Soft. No guarding, rigidity, or abdominal tenderness. : No suprapubic tenderness. Navarrete catheter present draining clear yellow urine Musculoskeletal/ Extremities: No gross atrophy. + generalized weakness Skin: Warm and dry Neurologic: Alert and oriented 3 - Labs CBC & Chem 7: 08/28/22 07:04 08/30/22 05:44 Labs: Microbiology - Last 24 Hours (Table) 08/26/22 17:07 Gram Stain - Final Back Tissue Culture - Final Escherichia coli Proteus mirabilis Pseudomonas aeruginosa Enterococcus faecium VRE 08/26/22 17:07 Gram Stain - Final Back Wound Culture - Final Escherichia coli Citrobacter amalonaticus Providencia stuartii Enterococcus faecium VRE Proteus mirabilis 08/26/22 17:07 Anaerobic Culture - Final Back Anaerobic Gm Negative Bacilli 08/26/22 17:07 Anaerobic Culture - Final Back Anaerobic Gm Negative Bacilli 08/25/22 14:12 Blood Culture - Preliminary Blood No Growth after 96 hours Assessment and Plan Assessment: Symptoms * Pain - sacral pain, continue Tylenol #3, and Lyrica * Fatigue - general weakness and fatigue * SOB - occasional shortness of breath, on 2 L O2, continue DuoNeb, and Lasix * Insomnia - no * N/V - no * Anxiety/depression - yes, patient has had a psych consult. Continue Zoloft and Remeron * Confusion - occasional * Agitation - no * Hallucinations - no * Appetite/weight loss - the patient has had a poor appetite. Encourage oral intake. Continue high-protein high-calorie diet and calorie count. Continue ensure supplement TIDWM and Megace * Dysphagia - PERSONAL CARE WORKER consulted, no s/s aspiration * Constipation - No BM recorded in EMR, Continue colace * Incontinence - Chronic Navarrete catheter for retention * Itch - No * Cough - No Plan: Summary/Goals - the patient is a bit more interactive today. She answers questions appropriately. She is aware that she is moving to [facility] today and even asked what time. The patient states that she thinks hospice is what's best for her. She does not want to come back and forth to the hospital anymore. She does not want a feeding tube. She states that she wants her wound VAC taken off because it is uncomfortable. She is looking forward to being in a place where comfort is the priority. Emotional support was provided No visitors are present at this time. Recommendations - [facility] Advanced Directives - none on file Code Status - DO NOT RESUSCITATE Thank you for this consultation Ansley Che [facility] Palliative Care Spectralink [phone] Email: [email or web address] Time with Patient: Less than 30
--- NOTE | 2022-08-30 22:20 | P.PN ---
Subjective Progress Note Date: 08/30/22 Principal diagnosis: Infected sacral pressure ulcer She is a 77-year-old female who was sent to the ER for evaluation of worsening sacral pressure ulcer patient did have a surgical debridement of sacral pressure ulcer by general surgery culture were positive for MRSA Proteus and E. coli. Patient did have a repeat surgical debridement and deep culture as well as bone biopsy completed on 08/26/2022 On today's evaluation that is 08/30/2022, the patient continues to be afebrile, the patient is breathing comfortably on nasal cannula oxygen, the patient denies any chest pain or shortness of breath, the patient did have occasional dry cough , the patient denies nausea no vomiting no abdominal pain no diarrhea, pain to the sacral wound is controlled with the current medication Objective - Vital Signs Vital signs: Vital Signs Temp 98.6 F 08/30/22 07:30 Pulse 51 L 08/30/22 07:30 Resp 18 08/30/22 07:30 BP 132/68 08/30/22 07:30 Pulse Ox 93 L 08/30/22 07:57 FiO2 Intake & Output 08/29/22 08/30/22 08/30/22 18:59 06:59 18:59 Intake Total 550 Output Total 900 650 Balance -900 -100 Intake: Intake, IV Titration 550 Amount Sodium Chloride 0.9% 1, 250 000 ml @ 50 mls/hr IV . Q20H ON LICENSE OF [facility] Rx#:[id number] Vancomycin 1,000 mg In 250 Sodium Chloride 0.9% 250 ml @ 125 mls/hr IVPB Q24H [place] Rx#:[id number] cefTRIAXone 2 gm In 50 Sodium Chloride 0.9% 50 ml @ 100 mls/hr IVPB Q24H ON LICENSE OF [facility] Rx#:[id number] Output: Urine 900 650 Other: Voiding Method Indwelling Catheter Indwelling Catheter Indwelling Catheter - Exam GENERAL DESCRIPTION: An elderly female lying in bed in no distress RESPIRATORY SYSTEM: Unlabored breathing , decreased breath sounds at bases HEART: S1 S2 regular rate and rhythm , ABDOMEN: Soft , no tenderness Sacral pressure ulcer currently covered with a wound VAC EXTREMITIES: No edema feet - Labs CBC & Chem 7: 08/28/22 07:04 08/30/22 05:44 Labs: Microbiology - Last 24 Hours (Table) 08/26/22 17:07 Gram Stain - Final Back Tissue Culture - Final Escherichia coli Proteus mirabilis Pseudomonas aeruginosa Enterococcus faecium VRE 08/26/22 17:07 Gram Stain - Final Back Wound Culture - Final Escherichia coli Citrobacter amalonaticus Providencia stuartii Enterococcus faecium VRE Proteus mirabilis 08/26/22 17:07 Anaerobic Culture - Final Back Anaerobic Gm Negative Bacilli 08/26/22 17:07 Anaerobic Culture - Final Back Anaerobic Gm Negative Bacilli 08/25/22 14:12 Blood Culture - Preliminary Blood No Growth after 96 hours Assessment and Plan (1) Sacral osteomyelitis Status: Acute Code(s): M46.28 - OSTEOMYELITIS OF VERTEBRA, SACRAL AND SACROCOCCYGEAL REGION SNOMED Code(s): 538568359 (2) Sacral decubitus ulcer Status: Acute Code(s): L89.159 - PRESSURE ULCER OF SACRAL REGION, UNSPECIFIED STAGE SNOMED Code(s): 928547531 Plan: 1patient with infected sacral pressure ulcer with the superficial culture grew E. coli Proteus and MRSA in this patient history as per surgical department unfortunately no deep culture done at time of surgery patient did have bone palpable at the base of the wound suspicious for osteomyelitis of the sacrum in this patient who did have elevated sed rate. Patient is status post surgical debridement and deep culture those are currently growing E. coli Proteus, VRE and pseudomonas aeruginosa, we did discontinue the vancomycin and Rocephin and the patient was started on daptomycin and cefepime, however plan is for possible hospice oriented care in which case antibiotic can be safely discontinued on discharge
--- NOTE | 2022-09-03 09:41 | CDI ---
Documentation Clarification Form Date: 09/03/2022 9:28:31 AM From: Natalia Todd Admit Date: 08/23/2022 9:41:00 AM Patient Name: Alyssa Roca Visit Number: [id number] Discharge Date: 08/30/2022 1:25:00 PM ATTENTION: The Clinical Documentation Specialists (CDI) and [facility] Coding Staff appreciate your assistance in clarifying documentation. Please respond to the clarification below the line at the bottom and electronically sign. The CDI & [facility] Coding staff will review the response and follow-up if needed. Please note: Queries are made part of the Legal Health Record. If you have any questions, please contact the author of this message via ITS. Dr. Abhijit Bell On 08/26 patient has a fever of 101.6F. Per Case Management notes "[facility] called and stated that when the pt got to their facility she tested positive for COVID." Clarification if patient had Covid 19 is requested. History/risk factors: Stage IV Sacral decubitus ulcer infected. Osteomyelitis Clinical Indicators: 101.6 Fever on 08/26/2022 Treatment: Tested positive at hospice facility and could not be accepted. Please clarify the COVID-19 status: [ ] Patient with positive Covid 19 [ x ] Patient without Covid 19 [ ] Other, please specify MTDD
== END 2022-08-30 13:25 | disposition hospice, inpatient (51) | DRG 580 ==
LOC: EC 12:50 → 6NMEDSUR 17:27 → OBSVTOIN 08-23 09:41 → 5NMEDONC 08-24 00:26
PROVIDERS: ADMIT Hospitalist; ATTEND Hospitalist
PROC: 0KBP0ZZ Excision of Left Hip Muscle, Open Approach (ICD-10-PCS; principal; 2022-08-22)
PROC: 0QBS0ZX Excision of Coccyx, Open Approach, Diagnostic (ICD-10-PCS; 2022-08-26)
PROC: 0QB10ZZ Excision of Sacrum, Open Approach (ICD-10-PCS; 2022-08-26)
PROC: 02HV33Z Insertion of Infusion Device into Superior Vena Cava, Percutaneous Approach (ICD-10-PCS; 2022-08-26)
DX: L89.154 Pressure ulcer of sacral region, stage 4 (principal); E44.1 Mild protein-calorie malnutrition; E87.1 Hypo-osmolality and hyponatremia; L97.319 Non-pressure chronic ulcer of right ankle with unspecified severity; L97.329 Non-pressure chronic ulcer of left ankle with unspecified severity; M46.28 Osteomyelitis of vertebra, sacral and sacrococcygeal region; D63.8 Anemia in other chronic diseases classified elsewhere; E11.621 Type 2 diabetes mellitus with foot ulcer; E11.69 Type 2 diabetes mellitus with other specified complication; Z68.22 Body mass index [BMI] 22.0-22.9, adult; F32.A Depression, unspecified; F41.9 Anxiety disorder, unspecified; I11.9 Hypertensive heart disease without heart failure; I25.10 Atherosclerotic heart disease of native coronary artery without angina pectoris; I44.0 Atrioventricular block, first degree; L89.612 Pressure ulcer of right heel, stage 2; L89.622 Pressure ulcer of left heel, stage 2; L97.519 Non-pressure chronic ulcer of other part of right foot with unspecified severity; L97.529 Non-pressure chronic ulcer of other part of left foot with unspecified severity; M06.9 Rheumatoid arthritis, unspecified; R62.7 Adult failure to thrive; Z51.5 Encounter for palliative care; Z66 Do not resuscitate; Z20.822 Contact with and (suspected) exposure to COVID-19; R32 Unspecified urinary incontinence; B96.20 Unspecified Escherichia coli [E. coli] as the cause of diseases classified elsewhere; M15.9 Polyosteoarthritis, unspecified; E83.52 Hypercalcemia; Z87.440 Personal history of urinary (tract) infections; R13.10 Dysphagia, unspecified; B95.62 Methicillin resistant Staphylococcus aureus infection as the cause of diseases classified elsewhere; B96.4 Proteus (mirabilis) (morganii) as the cause of diseases classified elsewhere; E87.6 Hypokalemia; K59.00 Constipation, unspecified; S82.892D Other fracture of left lower leg, subsequent encounter for closed fracture with routine healing; E78.5 Hyperlipidemia, unspecified; Z79.2 Long term (current) use of antibiotics; Z79.4 Long term (current) use of insulin; Z79.82 Long term (current) use of aspirin; Z79.899 Other long term (current) drug therapy; Z95.1 Presence of aortocoronary bypass graft; Z98.1 Arthrodesis status; Z88.2 Allergy status to sulfonamides; Z91.51 Personal history of suicidal behavior; Z88.8 Allergy status to other drugs, medicaments and biological substances; Z74.01 Bed confinement status
CPT/HCPCS: 36415; 36573; 71046; 80048; 80053; 80202; 81001; 82565; 83605; 83735; 84132; 84145; 84484; 85025; 85610; 85652; 85730; 86140; 87040; 87070; 87075; 87077; 87086; 87186; 87205; 87502; 87635; 88304; 93005; 94640; 94760; 96360; 99285

== ENCOUNTER 2022-08-30 19:23 | Emergency (ER) | payer MEDICARE, BC ==
[2022-08-30 19:29] VITALS: BP 137/94; PULSE 90; RESP 16; TEMP 99
[2022-08-30] MEDS ORDERED: MORPHINE SULFATE 4 MG/ML SYRINGE IVP STA (21:28)
[2022-08-30] MEDS ORDERED: HYDROcodone/APAP 5-325MG 1 EACH TAB PO STA (21:35)
--- NOTE | 2022-08-30 23:15 | ED ---
General Adult HPI - General Chief complaint: Weakness Stated complaint: COVID, Fatigue Time Seen by Provider: 08/30/22 19:30 Source: patient, EMS Mode of arrival: EMS Limitations: no limitations - History of Present Illness Initial comments: 77-year-old female is brought to the emergency department for possible Covid. She was at her facility earlier today. Discharged to [facility] for hospice care. They did perform a Covid swab as part of their intake protocol. Patient was found to be positive and therefore they transfer the patient back to the hospital as they are unable to care for Covid patient's at their facility. It is reported that the patient has no symptoms of Covid. Her daughter is at bedside and answering most questions. She states that she does have a deep wet cough however this has been constant for the patient. She has no fevers. Patient has had no increase in her work of breathing. Patient did have negative Covid test at our facility on the first. No other alleviating, precipitating laughing factors - Related Data Home Medications Medication Instructions Recorded Confirmed Multivitamins, Thera [Multivitamin 1 tab PO DAILY 06/14/16 08/30/22 (formulary)] Potassium Chloride [Klor-Con 20] 20 meq PO DAILY 07/24/18 08/30/22 Folic Acid 1 mg PO DAILY 01/21/19 08/30/22 Ergocalciferol [Vitamin D2 (1250 1,250 mcg PO SAMANIEGO 05/24/21 08/30/22 Mcg = 85455 Iu)] Mirtazapine 7.5 mg PO HS 05/23/22 08/30/22 Docusate [Colace] 100 mg PO BID 08/06/22 08/30/22 Magnesium Hydroxide [Milk of 2,400 mg PO DAILY PRN 08/06/22 08/30/22 Magnesia] Sertraline [Zoloft] 50 mg PO DAILY 08/06/22 08/30/22 lidocaine HCL [lidocaine HCL 5 ml PO QID PRN 08/21/22 08/30/22 Viscous] Acetaminophen-Codeine 300-30mg 1 tab PO Q4HR PRN 08/30/22 08/30/22 [Tylenol w/codeine #3] Previous Rx's Medication Instructions Recorded Famotidine [Pepcid] 20 mg PO DAILY #0 tab 04/19/22 Acetaminophen Tab [Tylenol] 650 mg PO Q6HR PRN tab 06/03/22 Furosemide [Lasix] 40 mg PO DAILY tab 06/03/22 Ipratropium-Albuterol Nebulize 3 ml INHALATION RT-TID PRN each 06/03/22 [Duoneb 0.5 mg-3 mg/3 ml Soln] amLODIPine [Norvasc] 10 mg PO DAILY tab 06/03/22 Pregabalin [Lyrica] 100 mg PO BID@1400,2100 #4 cap 06/21/22 hydrALAZINE HCL [Apresoline] 50 mg PO BID #60 tab 08/13/22 Ipratropium-Albuterol Nebulize 3 ml INHALATION RT-TID each 08/30/22 [Duoneb 0.5 mg-3 mg/3 ml Soln] Magnesium Oxide [Mag-Ox] 400 mg PO DAILY tab 08/30/22 Allergies Allergy/AdvReac Type Severity Reaction Status Date / Time alprazolam [From Xanax] Allergy Unknown Verified 08/30/22 22:14 amlodipine [From Norvasc] Allergy Unknown Verified 08/30/22 22:14 amoxicillin trihydrate AdvReac Severe Nausea & Verified 08/30/22 22:14 [From Augmentin] Vomiting & Diarrhea potassium clavulanate AdvReac Severe Nausea & Verified 08/30/22 22:14 [From Augmentin] Vomiting & Diarrhea sulfamethoxazole AdvReac Severe affected Verified 08/30/22 22:14 [From Bactrim] muscles - couldn't move trimethoprim [From Bactrim] AdvReac Severe affected Verified 08/30/22 22:14 muscles - couldn't move diazepam [From Valium] AdvReac hard time Verified 08/30/22 22:14 coming out of anesthesia Kzgihjj-EUH-BxF Reductase AdvReac leg cramps Verified 08/30/22 22:14 Inhibitor [Avzgjwg-Cqm-Zmt Reductase Inhibitor] Sulfa (Sulfonamide AdvReac affected Verified 08/30/22 22:14 Antibiotics) muscles - couldn't move Review of Systems ROS Statement: Those systems with pertinent positive or pertinent negative responses have been documented in the HPI. ROS Other: All systems not noted in ROS Statement are negative. 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 CATARACTS RONY. carpal tunnelWITH LENS IMPLANT 2007, lower back spinal fusion 2018, left knee surgery 2018., Past Anesthesia/Blood Transfusion Reactions: Postoperative Nausea & Vomiting (PONV) Additional Past Anesthesia/Blood Transfusion Reaction / Comment(s): PONV and hard to wake up Past Psychological History: Anxiety, Depression Additional Psychological History / Comment(s): . Smoking Status: Former smoker Past Alcohol Use History: None Reported Additional Past Alcohol Use History / Comment(s): QUIT 2007 WAS 1PPD smoker since age 17 or 19. She denies any medical marijuana, marijuana, street drug or alcohol use. She lives at home with her of 52 years. Past Drug Use History: None Reported - Past Family History Brother(s) Additional Family Medical History / Comment(s): Shunt has 1 brother and 1 sister but she does not have any contact with them. Patient has 3 children that are all healthy. Mother Family Medical History: Cancer Additional Family Medical History / Comment(s): . Father Family Medical History: Cancer Additional Family Medical History / Comment(s): . General Exam Limitations: altered mental status General appearance: alert, lethargic Head exam: Present: atraumatic, normocephalic, normal inspection ENT exam: Present: mucous membranes dry Neck exam: Present: normal inspection. Absent: tenderness, meningismus, lymphadenopathy Respiratory exam: Present: normal lung sounds bilaterally. Absent: respiratory distress, wheezes, rales, rhonchi, stridor Cardiovascular Exam: Present: regular rate, normal rhythm, normal heart sounds. Absent: systolic murmur, diastolic murmur, rubs, gallop, clicks GI/Abdominal exam: Present: soft, normal bowel sounds. Absent: distended, tenderness, guarding, rebound, rigid Psychiatric exam: Present: flat affect Skin exam: Present: warm, dry, intact, normal color. Absent: rash Course Vital Signs 08/30/22 19:26 Temperature 99.0 F Pulse Rate 90 Respiratory 16 Rate Blood Pressure 137/94 O2 Sat by Pulse 97 Oximetry - Reevaluation(s) Reevaluation #1: Awaiting callback from hospice supervisor roving department 08/30/22 23:15 Medical Decision Making - Medical Decision Making Was pt. sent in by a medical professional or institution? hospice home Did you speak to anyone other than the patient for history? hospice clinical supervisor Did you review nursing and triage notes? yes and I agree Were old charts reviewed? hospitalization records from earlier admission today Differential Diagnosis? covid, influenza, pneumonia, lab error EKG interpreted by me (3pts min.)? no X-rays interpreted by me (1pt min.)? no CT interpreted by me (1pt min.)? no U/S interpreted by me (1pt. min.)? no What testing was considered but not performed? (CT, X-rays, U/S, labs)? Why? none What meds were considered but not given? Why? none Did you discuss the management of the patient with other professionals? hospice clinical supervisor Did you reconcile home meds? yes Was smoking cessation discussed for >3mins.? no Was critical care preformed (if so, how long)? no Were there social determinants of health that impacted care today? How? (Homelessness, low income, unemployed, alcoholism, drug addiction, transportation, low edu. Level, literacy, decrease access to med. care, [place] [facility], rehab)? none Was there de-escalation of care discussed even if they declined? (Discuss DNR or withdrawal of care, Hospice)? patient is on hospice and is to remain on hospice What co-morbidities impacted this encounter? (DM, HTN, Smoking, COPD, CAD, Cancer, CVA, Hep., AIDS, mental health diagnosis, sleep apnea, morbid obesity)? none Was patient admitted / discharged? @ Upon arrival patient was placed into room 4. History and physical exam was performed. Patient was swabbed for Covid which is negative. I did follow this with a 4 Plex study which continues to be negative. Called and spoke with the hospice facility who states that they will accept the patient back knowing that she has to negative tests at our faciliy with no symptoms. Patient's daughter was agreeable to go with the patient to sign paperwork. She is transferred via EMS to [facility] in stable condition Undiagnosed new problem with uncertain prognosis? no Drug Therapy requiring intensive monitoring for toxicity (Heparin, Nitro, Insulin, Cardizem)? no Were any procedures done? no Diagnosis/symptom? evaluation for covid -19 Acute, or Chronic, or Acute on Chronic? acute Uncomplicated (without systemic symptoms) or Complicated (systemic symptoms)? uncomplicated Side effects of treatment? @ -[none] Exacerbation, Progression, or Severe Exacerbation] @ -[no] Poses a threat to life or bodily function? @ -[no] - Lab Data Lab Results 08/30/22 08/30/22 Range/Units 19:30 21:27 Coronavirus (PCR) Not Detected (Not Detectd) Influenza Type A (PCR) Not Detected (Not Detectd) Influenza Type B (PCR) Not Detected (Not Detectd) RSV (PCR) Not Detected (Not Detectd) SARS-CoV-2 (PCR) Not Detected (Not Detectd) Disposition Clinical Impression: Failure to thrive Disposition: OTHER INSTITUTION NOT DEFINED Condition: Stable Instructions (If sedation given, give patient instructions): Normal Exam (ED) Additional Instructions: You are being discharged back to [facility]. You tested negative twice for covid Is patient prescribed a controlled substance at d/c from ED?: No Referrals: Willy Chiu MD [Primary Care Provider] - 1-2 days Time of Disposition: 23:37 - Out of Hospital Transfer - Req. Specs Out of Hospital Transfer - Requested Specifics: Other Non-Acute (hospice center in [place])
[2022-08-31] MEDS ORDERED: HYDROcodone/APAP 5-325MG 1 EACH TAB PO STA (00:54)
== END 2022-08-31 01:11 | disposition other institution (70) ==
LOC: EC 19:23
DX: R62.7 Adult failure to thrive (principal); I25.10 Atherosclerotic heart disease of native coronary artery without angina pectoris; I10 Essential (primary) hypertension; M19.90 Unspecified osteoarthritis, unspecified site; F32.A Depression, unspecified; F41.9 Anxiety disorder, unspecified; Z87.891 Personal history of nicotine dependence; F12.90 Cannabis use, unspecified, uncomplicated; Z79.1 Long term (current) use of non-steroidal anti-inflammatories (NSAID); Z88.1 Allergy status to other antibiotic agents; Z88.8 Allergy status to other drugs, medicaments and biological substances; Z88.2 Allergy status to sulfonamides; Z20.822 Contact with and (suspected) exposure to COVID-19
CPT/HCPCS: 87635; 87636; 99285